=== PATIENT | female | born 1960 | race Hispanic/Latino ===

== ENCOUNTER 2022-01-02 11:31 | Inpatient (IN) | payer OTHER ==
--- OUTSIDE RECORDS SUMMARY | 2022-01-02 11:44 | XMS REPORT | Continuity of Care Document ---
:1960 Author Organization [facility] t Address [address] [place] [address] Care Team Providers Name Role Phone Neret Primary Care Physician PATRICIA Attending Clinician Unavailable José SAUER Attending Clinician Unavailable Tito SAUER Attending Clinician Unavailable Doctor Unassigned, Name Attending Clinician Unavailable Daniel MA Attending Clinician Chano LOMELI, L Attending Clinician Unavailable DANIEL Attending Clinician Unavailable Ayesha Bateman MD Attending Clinician Rizwan SAUER Attending Clinician Lauro SAUER Attending Clinician Benjy SAUER Attending Clinician Irene MARCUS Attending Clinician Unavailable Irene Marcus DO Attending Clinician RHIANNON MARTINEZ Attending Clinician Unavailable Rhiannon Perea Attending Clinician DANIEL Attending Clinician Unavailable Irene BURNETT Attending Clinician Unavailable Irene Burnett MD Attending Clinician America SAUER Attending Clinician Shoaib LOMELI Attending Clinician Unavailable [place] GOULD Attending Clinician Unavailable Janice RAND Attending Clinician Unavailable Janice Rand MD Attending Clinician Thiago SAUER Attending Clinician THIAGO Attending Clinician Unavailable RIZWAN Admitting Clinician Unavailable Benjy SAUER Admitting Clinician Irene BURNETT Admitting Clinician Unavailable Payers Payer Name Policy Type Policy Number Effective Date Expiration Date Mitchell byers CIG[employer] OPEN [id number] 2015 2021 ACCESS/OPEN 00:00:00 00:00:00 ACCESS PLUS NENO NARANJO [id number] 2021 HEALTH PLAN 00:00:00 CIGNA II [id number] 2020 00:00:00 Problems Condition Condition Condition Status Onset Resolution Last Treating Co mments Source Name Details Category Date Date Treatment Clinician Date Morbid Morbid Disease Active [facility] obesity obesity 6-23 [place] with [place] mass index 00 [place] dical of Branch 40.0-49.9 40.0-49.9 Pancytopen Pancytopen Disease Active U nivers ia ia 6-22 ity of 00:00: [address] Obesity Obesity Disease Active Univers (BMI (BMI 6-22 ity of 30-39.9) 30-39.9) 00:00: [address] No known No known Disease Unive rs active active ity of problems problems [facility] Allergies, Adverse Reactions, Alerts Allergy Allergy Status Severity Reaction(s) Onset Inactive Treating Comm ents Source Name Type Date Date Clinician Sulfa Propensi Active Rash Univers (Sulfona ty to 1-01 ity of mide adverse 00:00: [place] Antibiot reaction 00 Medica l ics) s Branch SULFA Drug Active Rash Univers (SULFONA Class 1-01 ity of MIDE 00:00: [place] ANTIBIOT 00 Medical ICS) Branch Sulfa Propensi Active Rash Univers (Sulfona ty to 1-01 ity of mide adverse 00:00: [place] Antibiot reaction 00 Medica l ics) s Branch Codeine Propensi Active [facility] ty to 02-18 Health adverse 00:00: reaction 00 s Sulfa Propensi Active [facility] Antibiot ty to 02-18 Health ics adverse 00:00: reaction 00 s CODEINE DRUG Active Swelling Univers INGREDI 1-30 ity of 00:00: [place] 00 Medical Branch Codeine Propensi Active Swelling Unive rs ty to -30 ity of adverse 00:00: [place] reaction 00 Medical s Branch Social History Social Habit Start Date Stop Date Quantity Comments Source History [facility] Health Alcohol Comment History [facility] Health Alcohol Std Drinks History [facility] Health Alcohol Binge Alcohol intake 2021-12-30 2021-12-30 0 /d [place] [facility] 00:00:00 00:00:00 Tobacco use and 2021-12-06 2021-12-06 Smokeless tobacco Un iversity of exposure 00:00:00 00:00:00 non-user [place] [facility] Exposure to 2021-11-19 2021-11-29 Not sure University SARS-CoV-2 00:00:00 09:17:00 [place] [facility] (event) Branch History SDOH 2021-01-21 2021-01-21 1 [facility] Alcohol Frequency 00:00:00 00:00:00 Sex [birth year] [place] [facility] 00:00:00 00:00:00 Smoking Status Start Date Stop Date Source Never smoked tobacco [facility] Tobacco smoking consumption [facility] Medical unknown Branch Medications Ordered Filled Start Stop Current Ordering Indication Dosage Frequency Signature Comments Components Source Medication Medication Date Date Medication? Clinician (SIG) Name Name Carboxymeth Yes Administer [facility] ylcellulose 7-21 into Health Sodium (EYE 10:25: affected DROPS OP) 09 eye(s). UNABLE TO Yes Med Name: [facility] FIND 7-21 [facility] 10:25: Eye GTTS 09 Carboxymeth Yes Administer [facility] ylcellulose 7-21 into Health Sodium (EYE 10:25: affected DROPS OP) 09 eye(s). UNABLE TO Yes Med Name: [facility] FIND 7-21 [facility] 10:25: Eye GTTS 09 gabapentin Yes 300mg Take 300 UT (Neurontin) 7-21 mg by Health 300 MG 10:22: mouth. capsule 41 gabapentin 2021-0 Yes 300mg Take 300 UT (Neurontin) 7-21 mg by Health 300 MG 10:22: mouth. capsule 41 tolterodine 2021-0 Yes TAKE 1 [facility] [place] (Detrol 7- CAPSULE Health [place]) 4 MG 24 10:15: DAILY hr capsule 23 Sennosides- 2021-0 Yes QD Take by [facility] Docusate - mouth 1 Health Sodium 10:15: (one) time (STOOL 23 each day. SOFTENER/LA XATIVE PO) traMADol 2021-0 Yes 50mg Q.[id number] Take 50 mg UT (Ultram) 50 - [id number] by mouth 3 Health MG tablet 10:15: 3D (three) 23 times a day. valsartan 2021-0 Yes 320mg QD Take 320 UT (Diovan) 7-21 mg by Health 160 MG 10:15: mouth 1 tablet 23 (one) time each day. tiZANidine 2021-0 Yes 4mg Q.5D Take 4 mg UT (Zanaflex) 12-30 by mouth 2 Hea lth 4 MG 10:15: (two) capsule 23 times a day. furosemide 0 Yes 40mg QD Take 40 mg U T (Lasix) 40 12-30 by mouth 1 Hea lth MG tablet 10:15: (one) time 23 each day. Calcium 2021-0 Yes QD Take by UT Carbonate 12-30 mouth 1 Health Antacid 10:15: (one) time (TUMS E-X 23 each day. PO) bimatoprost 0 Yes 1[drp] 1 drop UT (Lumigan) 12-30 every Health 0.01 % 10:15: night. ophthalmic 23 solution tolterodine 2021-0 Yes TAKE 1 [facility] [place] (Detrol - CAPSULE Health LA) 4 MG 24 10:15: DAILY hr capsule 23 Sennosides- 2021-0 Yes QD Take by UT Docusate - mouth 1 Health Sodium 10:15: (one) time (STOOL 23 each day. SOFTENER/LA XATIVE PO) traMADol 2021-0 Yes 50mg Q.[id number] Take 50 mg UT (Ultram) 50 - [id number] by mouth 3 Health MG tablet 10:15: 3D (three) 23 times a day. valsartan 2021-0 Yes 320mg QD Take 320 UT (Diovan) 7-21 mg by Health 160 MG 10:15: mouth 1 tablet 23 (one) time each day. tiZANidine 2021-0 Yes 4mg Q.5D Take 4 mg UT (Zanaflex) 12-30 by mouth 2 Hea lth 4 MG 10:15: (two) capsule 23 times a day. furosemide 2021-0 Yes 40mg QD Take 40 mg U T (Lasix) 40 12-30 by mouth 1 Hea lth MG tablet 10:15: (one) time 23 each day. Calcium 2021-0 Yes QD Take by UT Carbonate 12-30 mouth 1 Health Antacid 10:15: (one) time (TUMS E-X 23 each day. PO) bimatoprost 2021-0 Yes 1[drp] 1 drop UT (Lumigan) 12-30 every Health 0.01 % 10:15: night. ophthalmic 23 solution Cholecalcif 2021-0 Yes UT maya -18 Health (Vitamin 00:00: D3) 1.25 MG 00 (58476 UT) capsule hydrALAZINE 2021-0 Yes UT (Apresoline 18 Health ) 25 MG 00:00: tablet 00 Cholecalcif 2021-0 Yes UT maya -18 Health (Vitamin 00:00: D3) 1.25 MG 00 (12419 UT) capsule hydrALAZINE 2021-0 Yes UT (Apresoline 18 Health ) 25 MG 00:00: tablet 00 glucose 2021-0 Yes [id number] TEST THREE UT blood 7-15 TIMES A Health (OneTouch 00:00: DAY Verio) test 00 strip glucose 2021-0 Yes [id number] TEST THREE UT blood 7-15 TIMES A Health (OneTouch 00:00: DAY Verio) test 00 strip dapaglifloz 2021-0 Yes 10mg Take 10 mg Univers in 12-17 by mouth ity of (FARXIGA) 02:53: daily. [place] 10 mg 01 Medical tablet Branch dulaglutide 2021-0 Yes inject Univ ers (TRULICITY) 12-17 under the ity of 0.75 mg/0.5 02:53: skin [place] mL PnIj 01 weekly. Medical Branch insulin Yes 40U inject 40 Unive rs aspart 7-08 Units ity of (NOVOLOG 02:53: [place] the [place] FLEXPEN 01 skin every Medica l U-100 morning. Branch INSULIN SC) insulin Yes 30U inject 30 Unive rs aspart 7-08 Units ity of U-100 02:53: under the [place] (NOVOLOG 01 skin every Medic al FLEXPEN evening. Branch U-100 INSULIN) 100 unit/mL (3 mL) injection hydralazine Yes Take by Un shayna HCl 7-08 mouth. ity of (HYDRALAZIN 02:53: [place] E ORAL) 01 Medical Branch iocetamic Yes 1{capsu Take 1 Uni vers acid 7-08 le} capsule by ity of (CHOLEBRINE 02:53: mouth [place] ORAL) 01 daily. Medical Branch doxepin 10 Yes 10mg Take 10 mg U nivers mg capsule 708 by mouth ity o f 02:53: every [place] 01 evening as Medical needed for Branch Insomnia. gabapentin Yes 300mg Take 300 Un shay[place] 300 mg 7-08 mg by ity of capsule 02:53: mouth 2 [place] 01 (two) Medical times Branch daily. empaglifloz Yes 1{tbl} Take 1 Un shayna in 7-08 tablet by ity of (JARDIANCE) 02:53: mouth [place] 25 mg Tab 01 daily. Medical Branch dapaglifloz Yes 10mg Take 10 mg Univers in 08 by mouth ity of (FARXIGA) 02:53: daily. [place] 10 mg 01 Medical tablet Branch dulaglutide Yes inject Univ ers (TRULICITY) 7-08 under the ity of 0.75 mg/0.5 02:53: skin [place] mL PnIj 01 weekly. Medical Branch insulin Yes 40U inject 40 Unive rs aspart 7-08 Units ity of (NOVOLOG 02:53: [place] the [place] FLEXPEN 01 skin every Medica l U-100 morning. Branch INSULIN SC) insulin Yes 30U inject 30 Unive rs aspart 7-08 Units ity of U-100 02:53: under the [place] (NOVOLOG 01 skin every Medic al FLEXPEN evening. Branch U-100 INSULIN) 100 unit/mL (3 mL) injection hydralazine Yes Take by Un shayna HCl 7-08 mouth. ity of (HYDRALAZIN 02:53: [place] E ORAL) Medical Branch iocetamic Yes 1{capsu Take 1 Uni vers acid 7-08 le} capsule by ity of (CHOLEBRINE 02:53: mouth [place] ORAL) 01 daily. Medical Branch doxepin 10 Yes 10mg Take 10 mg U nivers mg capsule 7-08 by mouth ity o f 02:53: every [place] 01 evening as Medical needed for Branch Insomnia. gabapentin Yes 300mg Take 300 Un shay[place] 300 mg 7-08 mg by ity of capsule 02:53: mouth 2 [place] 01 (two) Medical times Branch daily. empaglifloz Yes 1{tbl} Take 1 Un shayna in 7-08 tablet by ity of (JARDIANCE) 02:53: mouth [place] 25 mg Tab 01 daily. Medical Branch dapaglifloz Yes 10mg Take 10 mg Univers in 7-08 by mouth ity of (FARXIGA) 02:53: daily. [place] 10 mg 01 Medical tablet Branch dulaglutide Yes inject Univ ers (TRULICITY) 7-08 under the ity of 0.75 mg/0.5 02:53: skin [place] mL PnIj 01 weekly. Medical Branch insulin Yes 40U inject 40 Unive rs aspart 7-08 Units ity of (NOVOLOG 02:53: [place] the [place] FLEXPEN 01 skin every Medica l U-100 morning. Branch INSULIN SC) insulin Yes 30U inject 30 Unive rs aspart 7-08 Units ity of U-100 02:53: under the [place] (NOVOLOG 01 skin every Medic al FLEXPEN evening. Branch U-100 INSULIN) 100 unit/mL (3 mL) injection hydralazine Yes Take by Un shay[place] HCl 7-08 mouth. ity of (HYDRALAZIN 02:53: [place] E ORAL) Medical Branch iocetamic Yes 1{capsu Take 1 Uni vers acid 7-08 le} capsule by ity of (CHOLEBRINE 02:53: mouth [place] ORAL) 01 daily. Medical Branch doxepin 10 Yes 10mg Take 10 mg U nivers mg capsule 7-08 by mouth ity o f 02:53: every [place] 01 evening as Medical needed for Branch Insomnia. gabapentin Yes 300mg Take 300 Un shay[place] 300 mg 7-08 mg by ity of capsule 02:53: mouth 2 [place] 01 (two) Medical times Branch daily. empaglifloz Yes 1{tbl} Take 1 Un shay[place] in 7-08 tablet by ity of (JARDIANCE) 02:53: mouth [place] 25 mg Tab 01 daily. Medical Branch foLIC acid 2021- Yes [id number] 4mg Take 4 Univers 1 mg tablet 12-16- tablets by i ty of 00:00: 04:59 mouth [place] 00 :00 daily for Medical 30 days. Branch foLIC acid 2021- Yes [id number] 4mg Take 4 Univers 1 mg tablet 12-16- tablets by i ty of 00:00: 04:59 mouth [place] 00 :00 daily for Medical 30 days. Branch foLIC acid 2021- Yes [id number] 4mg Take 4 Univers 1 mg tablet 12-16- tablets by i ty of 00:00: 04:59 mouth [place] 00 :00 daily for Medical 30 days. Branch foLIC acid 2021- Yes [id number] 4mg Take 4 Univers 1 mg tablet 12-16- tablets by i ty of 00:00: 04:59 mouth [place] 00 :00 daily for Medical 30 days. Branch foLIC acid 2021- Yes [id number] 4mg Take 4 Univers 1 mg tablet 12-16- tablets by i ty of 00:00: 04:59 mouth [place] 00 :00 daily for Medical 30 days. Branch LEVOTHYROXI Yes None Univer s NE 200 MCG 7-06 Entered ity of ORAL TAB 14:54: [place] 28 Medical Branch CALCITRIOL Yes None Univers 0.5 MCG 7-06 Entered ity of ORAL CAP 14:54: [place] 28 Medical Branch FOLTRIN Yes None Univers ORAL 7-06 Entered ity of 14:54: [place] 28 Medical Branch AMLODIPINE Yes None Univers BESYLATE 7- Entered ity of ORAL 14:54: [place] 28 Medical Branch dapaglifloz Yes 10mg Take 10 mg Univers in 06 by mouth ity of (FARXIGA) 14:54: daily. [place] 10 mg 28 Medical tablet Branch dulaglutide Yes inject Univ ers (TRULICITY) 7-06 under the ity of 0.75 mg/0.5 14:54: skin [place] mL PnIj 28 weekly. Medical Branch insulin Yes 40U inject 40 Unive rs aspart 7-06 Units ity of (NOVOLOG 14:54: [place] the [place] FLEXPEN 28 skin every Medica l U-100 morning. Branch INSULIN SC) insulin Yes 30U inject 30 Unive rs aspart 7-06 Units ity of U-100 14:54: under the [place] (NOVOLOG 28 skin every Medic al FLEXPEN evening. Branch U-100 INSULIN) 100 unit/mL (3 mL) injection hydralazine Yes Take by Un shayna HCl 706 mouth. ity of (HYDRALAZIN 14:54: [place] E ORAL) 28 Medical Branch iocetamic Yes 1{capsu Take 1 Uni vers acid 7 le} capsule by ity of (CHOLEBRINE 14:54: mouth [place] ORAL) 28 daily. Medical Branch doxepin 10 Yes 10mg Take 10 mg U nivers mg capsule 06 by mouth ity o f 14:54: every [place] 28 evening as Medical needed for Branch Insomnia. gabapentin Yes 300mg Take 300 Un shayna 300 mg 7-06 mg by ity of capsule 14:54: mouth 2 [place] 28 (two) Medical times Branch daily. empaglifloz Yes 1{tbl} Take 1 Un shay[place] in 12-15 tablet by ity of (JARDIANCE) 14:54: mouth [place] 25 mg Tab 28 daily. Medical Branch LEVOTHYROXI Yes None Univer s NE 200 MCG 7 Entered ity of ORAL TAB 14:54: [place] 28 Medical Branch CALCITRIOL Yes None Univers 0.5 MCG 7 Entered ity of ORAL CAP 14:54: [place] 28 Medical Branch FOLTRIN Yes None Univers ORAL 7- Entered ity of 14:54: [place] 28 Medical Branch AMLODIPINE Yes None Univers BESYLATE 12-15 Entered ity of ORAL 14:54: [place] 28 Medical Branch dapaglifloz Yes 10mg Take 10 mg Univers in 12-15 by mouth ity of (FARXIGA) 14:54: daily. [place] 10 mg 28 Medical tablet Branch dulaglutide Yes inject Univ ers (TRULICITY) 7 under the ity of 0.75 mg/0.5 14:54: skin [place] mL PnIj 28 weekly. Medical Branch insulin Yes 40U inject 40 Unive rs aspart 7-06 Units ity of (NOVOLOG 14:54: [place] the [place] FLEXPEN 28 skin every Medica l U-100 morning. Branch INSULIN SC) insulin Yes 30U inject 30 Unive rs aspart 7-06 Units ity of U-100 14:54: under the [place] (NOVOLOG 28 skin every Medic al FLEXPEN evening. Branch U-100 INSULIN) 100 unit/mL (3 mL) injection hydralazine Yes Take by Un shayna HCl 7 mouth. ity of (HYDRALAZIN 14:54: [place] E ORAL) 28 Medical Branch iocetamic Yes 1{capsu Take 1 Uni vers acid 12-15 le} capsule by ity of (CHOLEBRINE 14:54: mouth [place] ORAL) 28 daily. Medical Branch doxepin 10 Yes 10mg Take 10 mg U nivers mg capsule 12-15 by mouth ity o f 14:54: every [place] 28 evening as Medical needed for Branch Insomnia. gabapentin Yes 300mg Take 300 Un shayna 300 mg 7- mg by ity of capsule 14:54: mouth 2 [place] 28 (two) Medical times Branch daily. empaglifloz Yes 1{tbl} Take 1 Un shayna in 12-15 tablet by ity of (JARDIANCE) 14:54: mouth [place] 25 mg Tab 28 daily. Medical Branch LEVOTHYROXI Yes None Univer s NE 200 MCG 7 Entered ity of ORAL TAB 14:54: [place] 28 Medical Branch CALCITRIOL Yes None Univers 0.5 MCG 7-06 Entered ity of ORAL CAP 14:54: [address] FOLTRIN Yes None Univers ORAL 7-06 Entered ity of 14:54: [address] AMLODIPINE Yes None Univers BESYLATE 7-06 Entered ity of ORAL 14:54: [address] LEVOTHYROXI Yes None Univer s NE 200 MCG 7-06 Entered ity of ORAL TAB 14:54: [address] CALCITRIOL Yes None Univers 0.5 MCG 7-06 Entered ity of ORAL CAP 14:54: [address] FOLTRIN Yes None Univers ORAL 7-06 Entered ity of 14:54: [address] AMLODIPINE Yes None Univers BESYLATE 7-06 Entered ity of ORAL 14:54: [address] LEVOTHYROXI Yes None Univer s [place] 200 MCG 7-06 Entered ity of ORAL TAB 14:54: [address] CALCITRIOL Yes None Univers 0.5 MCG 7- Entered ity of ORAL CAP 14:54: [address] FOLTRIN Yes None Univers ORAL 7-06 Entered ity of 14:54: [address] AMLODIPINE Yes None Univers BESYLATE - Entered ity of ORAL 14:54: [address] pantoprazol Yes 40mg 40 mg, Univ ers e 12-15 Oral, ity of (PROTONIX) 14:45: DAILY, [place] EC tablet 00 First dose Medi abdon 40 mg on Mon12/15/21 at 0945, Until Discontinu ed, Routine insulin Yes 5U 5 Units, Univer s lispro 12-15 Subcutaneo ity of (human) 13:00: us, TID [place] (HumaLOG 00 MEALS, Medical U-100) First dose Branch injection 5 (after Units last modificati on) on Mon12/15/21 at 0800, Until Discontinu ed, Routine PREDNISONE 2021- No None Univer s 10 MG ORAL 12-15 Entered ity o f TAB 11:40: 00:00 [place] 13 :00 [facility] HYDROCHLORO 2021- No None Unive rs THIAZIDE 25 12-15 Entered ity of MG ORAL TAB 11:40: 00:00 [place] 13 :00 Medical Branch METHOTREXAT 2021- No None Unive rs E SODIUM 12-15 Entered ity of 2.5 MG ORAL 11:40: 00:00 [place] TAB 13 :00 Medical Branch FOLIC ACID 2021- No None Univer s 1 MG ORAL 12-15 Entered ity of TAB 11:40: 00:00 [place] 13 :00 Medical Branch METFORMIN 2021- No None Univers 500 MG ORAL 12-15 Entered ity of TAB 11:40: 00:00 [place] 13 :00 Medical Branch ENALAPRIL 2021- No None Univers MALEATE 20 12-15 Entered ity o f MG ORAL TAB 11:40: 00:00 [place] 13 :00 [facility] Branch HYDROXYCHLO 2021- No None Unive rs ROQUINE 200 12-15 Entered ity of MG ORAL TAB 11:40: 00:00 [place] 13 :00 [facility] Branch losartan-hy 2021- No 1{tbl} Take 1 U nivers drochloroth 12-15 tablet by it y of iazide 11:40: 00:00 mouth [place] 100-12.5 mg 13 :00 daily. Medica l per tablet Branch hydrALAZINE No 25mg Take 25 mg Univers 25 mg 12-15 by mouth 3 ity of tablet 11:40: 00:00 (three) [place] 13 :00 times Medical daily. Branch insulin Yes 12U 12 Units, Unive rs glargine 12-15 Subcutaneo ity o f (LANTUS 01:00: us, BID, [place] U-100) 00 First dose Medical injection (after Branch 12 Units last modificati on) on Mon12/14/21 at 1999, Until Discontinu ed, Routine pantoprazol No 40mg 40 mg, Uni vers e 12-15 Oral, BID, ity of (PROTONIX) 01:00: 14:43 First dose [place] 2 mg/mL 00 :00 on Mon Medical oral 12/14/21 at Branch suspension 2000, 40 mg Until Discontinu ed, Routine Levemir Yes [facility] FlexTouch 7-06 Health 100 UNIT/ML 00:00: injection 00 Levemir 0 Yes [facility] FlexTouch 7-06 Health 100 UNIT/ML 00:00: injection 00 metoprolol 2021- Yes 12.5mg Take 12.5 UT tartrate 12-15 08-06 mg by Health (Lopressor) 00:00: 04:59 mouth. 25 MG 00 :00 tablet pantoprazol 2021- Yes 1{tbl} QD Take 1 U T e 12-15- tablet by Health (ProtoNix) 00:00: 04:59 mouth 1 40 [place] EC 00 :00 (one) time tablet each day. metoprolol 2021- Yes 12.5mg Take 12.5 UT tartrate 12-15 08-06 mg by Health (Lopressor) 00:00: 04:59 mouth. 25 MG 00 :00 tablet pantoprazol 2021- Yes 1{tbl} QD Take 1 U T e 12-15- tablet by Health (ProtoNix) 00:00: 04:59 mouth 1 40 [place] EC 00 :00 (one) time tablet each day. pantoprazol 2021- Yes [id number] 40mg Take 1 Univers e 40 mg EC 12-15- tablet by ity of tablet 00:00: 04:59 mouth [place] 00 :00 daily for Medical 30 days. [place] metoprolol 2021- Yes [id number] 12.5mg Take 0.5 Univers tartrate 25 12-15- tablets by i ty of mg tablet 00:00: 04:59 mouth 2 [place] 00 :00 (two) Medical times [place] daily for 30 days. pantoprazol 2021- Yes [id number] 40mg Take 1 Univers e 40 mg EC 12-15- tablet by ity of tablet 00:00: 04:59 mouth [place] 00 :00 daily for Medical 30 days. [place] metoprolol 2021- Yes [id number] 12.5mg Take 0.5 Univers tartrate 25 12-15-06 tablets by i ty of mg tablet 00:00: 04:59 mouth 2 [place] 00 :00 (two) Medical times Branch daily for 30 days. Insulin 2021- Yes [id number] 12U inject 12 Univers Detemir 12-15 08-06 Units ity of (LEVEMIR 00:00: 04:59 under the [place] FLEXTOUCH 00 :00 skin 2 Medical U-100 (two) Branch INSULN) 100 times unit/mL (3 daily for mL) 30 days. injection pantoprazol 2021- Yes [id number] 40mg Take 1 Univers e 40 mg EC 12-15- tablet by ity of tablet 00:00: 04:59 mouth [place] 00 :00 daily for Medical 30 days. Branch metoprolol 2021- Yes [id number] 12.5mg Take 0.5 Univers tartrate 25 12-15- tablets by i ty of mg tablet 00:00: 04:59 mouth 2 [place] 00 :00 (two) Medical times Branch daily for 30 days. Insulin 2021- Yes [id number] 12U inject 12 Univers Detemir 12-15 08-06 Units ity of (LEVEMIR 00:00: 04:59 under the [place] FLEXTOUCH 00 :00 skin 2 Medical U-100 (two) Branch INSULN) 100 times unit/mL (3 daily for mL) 30 days. injection pantoprazol 2021- Yes [id number] 40mg Take 1 Univers e 40 mg EC 12-15- tablet by ity of tablet 00:00: 04:59 mouth [place] 00 :00 daily for Medical 30 days. Branch metoprolol 2021- Yes [id number] 12.5mg Take 0.5 Univers tartrate 25 12-15- tablets by i ty of mg tablet 00:00: 04:59 mouth 2 [place] 00 :00 (two) Medical times Branch daily for 30 days. Insulin 2021- Yes [id number] 12U inject 12 Univers Detemir 12-15 08-06 Units ity of (LEVEMIR 00:00: 04:59 under the [place] FLEXTOUCH 00 :00 skin 2 Medical U-100 (two) Branch INSULN) 100 times unit/mL (3 daily for mL) 30 days. injection pantoprazol 2021- Yes [id number] 40mg Take 1 Univers e 40 mg EC 12-15 tablet by ity of tablet 00:00: 04:59 mouth [place] 00 :00 daily for Medical 30 days. Branch metoprolol 2021- Yes [id number] 12.5mg Take 0.5 Univers tartrate 25 12-15 tablets by i ty of mg tablet 00:00: 04:59 mouth 2 [place] 00 :00 (two) Medical times Branch daily for 30 days. Insulin 2021- Yes [id number] 12U inject 12 Univers Detemir 12-15 Units ity of (LEVEMIR 00:00: 04:59 under the [place] FLEXTOUCH 00 :00 skin 2 Medical U-100 (two) Branch INSULN) 100 times unit/mL (3 daily for mL) 30 days. injection lidocaine 2021- Yes [id number] 10mL Take 10 mL Univers 2% viscous 12-15 by mouth ity of 2 % 00:00: 04:59 every 6 [place] solution 00 :00 (six) Medical hours as Branch needed for Oral mucosal pain for up to 7 days. maalox:diph 2021- Yes [id number] 15mL [place] and Univers enhydrAMINE 12-15 spit out ity of :lidocaine 00:00: 04:59 15 mL 4 [place] 2 % viscous 00 :00 (four) Medica l 1:1:1 times Branch daily for 7 days. lidocaine 2021- Yes [id number] 10mL Take 10 mL Univers 2% viscous 12-15 by mouth ity of 2 % 00:00: 04:59 every 6 [place] solution 00 :00 (six) Medical hours as Branch needed for Oral mucosal pain for up to 7 days. maalox:diph 2021- Yes [id number] 15mL Swish and Univers enhydrAMINE 12-15 spit out ity of :lidocaine 00:00: 04:59 15 mL 4 [place] as 2 % viscous 00 :00 (four) Medica l 1:1:1 times Branch daily for 7 days. lidocaine 2021- Yes [id number] 10mL Take 10 mL Univers 2% viscous 12-15 by mouth ity of 2 % 00:00: 04:59 every 6 [place] solution 00 :00 (six) Medical hours as Branch needed for Oral mucosal pain for up to 7 days. maalox:diph 2021- Yes [id number] 15mL Swish and Univers enhydrAMINE 12-15 spit out ity of :lidocaine 00:00: 04:59 15 mL 4 [place] as 2 % viscous 00 :00 (four) Medica l 1:1:1 times Branch daily for 7 days. calcium 2021- No 2g 2 g, IV Univer s gluconate 2 12-14 Infusion, it y of g in NaCl 19:45: 22:36 Administer [place] 100 mL 00 :00 over 2 Medical (ISO-OSM) Hours, Branch RTU IV ONCE, 1 infusion 2 dose, On g Mon12/14/21 at 1445, Routine furosemide No 40mg 40 mg, [place] [facility] ers (LASIX) 12-14 Slow IV ity of injection 04:15: 03:49 Push, [place] 40 mg 00 :00 ONCE, 1 Medical dose, On Branch Mon12/13/21 at 2315, Routine insulin No 10U 10 Units, [facility] ers glargine 12-14 Subcutaneo ity of (LANTUS 01:00: 22:45 us, BID, [place] U-100) 00 :25 First dose Medical injection (after Branch 10 Units last modificati on) on Mon12/13/21 at 2000, Until Discontinu ed, Routine insulin No 4U 4 Units, [facility] rs lispro 12-13 Subcutaneo ity of (human) 22:00: 22:45 us, TID [place] (HumaLOG 00 :25 MEALS, Medical U-100) First dose Branch injection 4 (after Units last modificati on) on Mon12/13/21 at 1700, Until Discontinu ed, Routine insulin 2021- No 15U 15 Units, [facility] ers glargine 12-13 Subcutaneo ity of (LANTUS 14:00: 16:27 us, DAILY, [place] as U-100) 00 :22 First dose Medical injection (after Branch 15 Units last modificati on) on Mon12/13/21 at 0900, Until Discontinu ed, Routine calcium 2g 2 g, IV Univer s gluconate 2 12-13 Infusion, it y of g in NaCl 01:00: 05:37 Q4H, 2 [place] 100 mL 00 :00 doses, Medical (ISO-OSM) First dose Bran ch RTU IV on Sun infusion 12/12/21 at g 2000, Last dose on Mon12/13/21 at 0000, Routine insulin No 18U 18 Units, Univ ers glargine 12-12 Subcutaneo ity of (LANTUS 14:00: 03:29 us, DAILY, [place] U-100) 00 :02 First dose Medical injection (after Branch 18 Units last modificati on) on [place] 12/12/21 at 0900, Until Discontinu ed, Routine insulin No 15U 15 Units, Univ ers glargine 12-12 Subcutaneo ity of (LANTUS 01:00: 16:27 us, Q24H, [place] U-100) 00 :22 First dose Medical injection (after Branch 15 Units last modificati on) on Mon12/11/21 at 2000, Until Discontinu ed, Routine morpHINE (4 Yes 4mg 4 mg, Slow Univers mg/mL) 12-11 IV Push, ity of injection 4 04:27: Q4HPRN, [place] mg 01 Starting Medical on Mon12/10/21 at 2327, Until Discontinu ed, Routine, Pain (scale 7-10) insulin 2021- No 18U 18 Units, Univ ers glargine 12-11 Subcutaneo ity of (LANTUS 01:00: 17:06 us, BID, [place] U-100) 00 :28 First dose Medical injection (after Branch 18 Units last modificati on) on Mon12/10/21 at 2000, Until Discontinu ed, Routine vancomycin No 1000mg 1,000 mg, Univers (VANCOCIN) 12-11 IV ity of 1,000 mg in 00:30: 02:54 Piggyback, [place] NaCl 0.9% 00 :00 ONCE, 1 Medical (NS) 250 mL dose, On Bran ch VIAL-MATE Mon12/10/21 IV at 1930, piggyback Administer over 60 Minutes, 250 mL
Reas on for Anti-Infec tive: Empiric Therapy for Suspected Infection< br>Empiric Therapy Site: Blood
D uration of therapy: 7 days Sliding Yes Subcutaneo Univ ers Scale 12-10 us, TID ity of Insulin - 22:00: MEALS+HS, [place] Lispro 00 First dose Medical (HumaLOG) + (after Branch Fsbg last Testing modificati on) on Mon12/10/21 at 1700, Until Discontinu ed, Routine insulin 2021- No 8U 8 Units, [place] [facility] lispro 12-10 Subcutaneo ity of (human) 22:00: 16:27 us, TID [place] (HumaLOG 00 :22 MEALS, Medical U-100) First dose Branch injection 8 (after Units last modificati on) on Mon12/10/21 at 1700, Until Discontinu ed, Routine sulfur 2021- No [id number] 5mL 5 mL, [facility] rs hexafluorid 12-10 Intravenou i ty of e microsphr 17:00: 17:00 s, ONCE, 1 [place] (LUMASON) 00 :00 dose, On Medica l injection 5 Mon12/10/21 Br anch mL at 1200, Routine
hull line crew member approving Restricted medication : MARTHA INGRAM insulin 2021- No 20U 20 Units, [place] [facility] ers glargine 12-10 Subcutaneo ity of (LANTUS 14:00: 19:29 us, DAILY, [place] U-100) 00 :04 First dose Medical injection (after Branch 20 Units last modificati on) on Mon12/10/21 at 0900, Until Discontinu ed, Routine D5W 0.9% 2021- No 1000mL at 60 [facility] rs NaCl (NS) 12-10 07-03 mL/hr, ity of IV infusion 09:30: 13:34 1,000 mL, [place] 1,000 mL 00 :03 IV Medical Infusion, Branch CONTINUOUS , Starting on Mon12/10/21 at 0430, Until Mon12/12/21 at 0834, Routine digoxin No 250ug 250 mcg, Univ ers (LANOXIN) 12-10 Intravenou ity of injection 08:26: 09:03 s, ONCE, 1 [place] 250 mcg 00 :00 dose, On Medical Mon12/10/21 Branch at 0330, Routine metoprolol Yes 12.5mg 12.5 mg, U nivers tartrate 12-10 Oral, BID, ity o f (LOPRESSOR) 02:15: First dose [place] tablet 12.5 00 (after Medica l mg last Branch modificati on) on [place] 12/09/21 at 2115, Until Discontinu ed, Routine acetaminoph No 1000mg 1,000 mg, Univers en ADULT 12-09 IV ity of (OFIRMEV) 23:00: 23:42 Infusion, [place] injection 00 :00 at 400 Medical 1,000 mg mL/hr Branch Administer over 15 Minutes, ONCE, 1 dose, On [place] 12/09/21 at 1800, Routine
Indicatio n: Non-periop erative Patient
Approved by: Per Policy (NPO Status) vancomycin No 1000mg 1,000 mg, Univers (VANCOCIN) 12-09 IV ity of 1,000 mg in 21:15: [facility] [place] NaCl 0.9% 00 :47 Q24H ABX, Medic al (NS) 250 mL First dose Br anch VIAL-MATE on Ana IV 12/09/21 at piggyback 1615, Until Discontinu ed, Administer over 60 Minutes, 250 mL
Reas on for Anti-Infec tive: Empiric Therapy for Suspected Infection& lt;br>Empi jack Therapy Site: Blood
D uration of therapy: 7 days digoxin No 500ug 500 mcg, Univ ers (LANOXIN) 12-09 Intravenou ity of injection 20:30: 19:56 s, ONCE, 1 [place] 500 mcg 00 :00 dose, On Medical [place] Branch 12/09/21 at 1530, Routine insulin No 5U 5 Units, Unive rs glargine 12-09 Subcutaneo ity of (LANTUS 15:07: 16:31 us, ONCE, [place] U-100) 00 :00 1 dose, On Medical injection 5 [place] Branch Units 12/09/21 at 1015, ALEXYS calcium No 1000mg 1,000 mg, Un shayna chloride 12-09 IV ity of 100 mg/mL 11:30: 12:04 Piggyback, [place] (10 %) 00 :00 ONCE, 1 Medical 1,000 mg in dose, On Bran NaCl 0.9% [place] (NS) 150 mL 12/09/21 at piggyback 0630, Administer over 60 Minutes, 150 mL traMADoL No 50mg 50 mg, Univer s (ULTRAM) 12-09 Oral, ity of tablet 50 07:45: 08:47 ONCE, 1 [place] mg 00 :00 dose, On Medical [place] Branch 12/09/21 at 0245, Routine insulin No 9U 9 Units, [place] [facility] lispro 12-08 Subcutaneo ity of (human) 22:00: 19:29 us, TID [place] (HumaLOG 00 :04 MEALS, Medical U-100) First dose Branch injection 9 (after Units last modificati on) on Mon12/08/21 at 1700, Until Discontinu ed, Routine meropenem No 1000mg 1,000 mg, Univers (MERREM) 12-08 07 IV ity of 1,000 mg in 21:00: 13:42 [place], [place] NaCl 0.9% 00 :20 Q12H ABX, Medic al (NS) 50 mL First dose [facility] MINI-BAG on Mon12/08/21 at 1600, Until Discontinu ed, Administer over 3 Hours, 50 mL
Rest ricted use approved by: CICU
Reason for Anti-Infec tive: Empiric Therapy for Suspected Infection< br>Empiric Therapy Site: Blood
D uration of therapy: 72 hours insulin 2021- No 5U 5 Units, Unive rs glargine 12-08 Subcutaneo ity of (LANTUS 18:04: 19:09 us, ONCE, [place] U-100) 00 :00 1 dose, On Medical injection 5 Wed Branch Units 12/08/21 at 1315, Routine diphenhydrA 2021- No 25mg 25 mg, Uni vers MINE 12-08 Oral, ity of (BENADRYL) 18:00: 18:22 ONCE, 1 [place] tablet 25 00 :00 dose, On Medica l mg Wed Branch 12/08/21 at 1300, Routine insulin 2021- No 35U 35 Units, Univ ers glargine 12-08 Subcutaneo ity of (LANTUS 14:00: 15:08 us, DAILY, [place] U-100) 00 :20 First dose Medical injection on Wed Branch 35 Units 12/08/21 at 0900, Until Discontinu ed, Routine hydrocortis 2021- No 100mg 100 mg, U nivers one sod 12-08 Intravenou ity o f succ 07:32: 07:44 s, ONCE, 1 [place] (CORTEF) 00 :00 dose, On Medical injection Wed Branch 100 mg 12/08/21 at 0245, 2 mL acetaminoph 2021- No 1000mg 1,000 mg, Univers en 12-08 Oral, ONCE ity of (TYLENOL) 07:30: 06:37 NOW, 1 [place] tablet 00 :00 dose, On Medical 1,000 mg Wed Branch 12/08/21 at 0230, Routine bacitracin Yes Topical Univ ers 500 unit/g 12-08 (Apply To ity of ointment 30 01:00: Affected [place] g tube 00 Areas), Medical BID, First Branch dose on e 12/07/21 at 2000, Until Discontinu ed, Routine vancomycin 2021- No 1000mg 1,000 mg, Univers (VANCOCIN) 12-07 IV ity of 1,000 mg in 20:30: 22:54 [place], [place] NaCl 0.9% 00 :00 ONCE, 1 Medical (NS) 250 mL dose, On Bran ch VIAL-MATE Tue IV 12/07/21 at piggyback 1530, Administer over 60 Minutes, 250 mL
Reas on for Anti-Infec tive: Empiric Therapy for Suspected Infection< br>Empiric Therapy Site: Blood
D uration of therapy: 7 days insulin 2021- No 4U 4 Units, Unive rs lispro 12-07 Subcutaneo ity of (human) 17:00: 18:05 us, TID [place] (HumaLOG 00 :09 MEALS, Medical U-100) First dose Branch injection 4 (after Units last modificati on) on Mon12/07/21 at 1200, Until Discontinu ed, Routine KCL 2021- No 40meq 40 mEq, Univers (KLOR-CON 12-07 Oral, ity of M20) tablet 17:00: 16:13 ONCE, 1 [place] 40 mEq 00 :00 dose, On Medical Tue Branch 12/07/21 at 1200, Routine Sliding No Subcutaneo Uni vers Scale 12-07 07-01 us, Q3H, ity of Insulin - 16:00: 19:29 First dose [place] Lispro 00 :04 (after Medical (HumaLOG) + last Branch Fsbg modificati Testing on) on Mon12/07/21 at 1100, Until Discontinu ed, Routine insulin 2021- No 15U 15 Units, Univ ers glargine 12-07 Subcutaneo ity of (LANTUS 14:00: 12:36 us, ONCE, [place] U-100) 00 :00 1 dose, On Medical injection Tue Branch 15 Units 12/07/21 at 0900, Routine insulin 2021- No 2U 2 Units, Unive rs lispro 12-07 Subcutaneo ity of (human) 13:00: 15:18 us, TID [place] (HumaLOG 00 :44 MEALS, Medical U-100) First dose Branch injection 2 (after Units last modificati on) on 12/07/21 at 0800, Until Discontinu ed, Routine KCL No 20meq 20 mEq, Univers (KLOR-CON 12-07 Oral, ity of M20) tablet 07:30: 06:40 ONCE, 1 [place] 20 mEq 00 :00 dose, On Medical [facility] 12/07/21 at 0230, Routine calcium 2021- No 2g 2 g, IV Univer s gluconate 2 12-07 Infusion, it y of g in NaCl 06:30: 08:50 ONCE, 1 [place] 100 mL 00 :00 dose, On Medical (ISO-OSM) [facility] RTU IV 12/07/21 at infusion 2 0130, g Routine acetaminoph No 650mg 650 mg, U nivers en 12-07 Oral, ity of (TYLENOL) 05:30: 06:38 ONCE, 1 [place] tablet 650 00 :00 dose, On Medic al mg [facility] 12/07/21 at 0030, Routine traMADoL Yes 50mg 50 mg, Univers (ULTRAM) 12-07 Oral, ity of tablet 50 02:58: Q6HPRN, [place] mg 00 Starting Medical on [facility] 12/06/21 at 2158, Until Discontinu ed, Routine, Pain (scale 4-6) calcium 2021- No 1g 1 g, IV Univer s gluconate 1 12-07 Infusion, it y of g in NaCl 00:30: 01:37 Administer [place] 50 mL 00 :00 over 60 Medical (ISO-OSM) Minutes, Branch RTU IV ONCE, 1 infusion 1 dose, On g [facility] 12/06/21 at 1930, Routine insulin 2021- No 15U 15 Units, Univ ers glargine 12-06 Subcutaneo ity of (LANTUS 23:26: 23:41 us, ONCE, [place] U-100) 00 :00 1 dose, On Medical injection [facility] 15 Units 12/06/21 at 1830, ALEXYS vancomycin 2021- No 1000mg 1,000 mg, Univers (VANCOCIN) 12-06 IV ity of 1,000 mg in 22:30: 00:02 [place], [place] NaCl 0.9% 00 :00 ONCE, 1 Medical (NS) 250 mL dose, On Bran ch VIAL-MATE [facility] IV 12/06/21 at piggyback 1730, Administer over 60 Minutes, 250 mL
Reas on for Anti-Infec tive: Empiric Therapy for Suspected Infection< br>Empiric Therapy Site: Blood
D uration of therapy: 7 days calcium No 1g 1 g, IV Univer s gluconate 1 12-06 Infusion, it y of g in NaCl 16:45: 16:59 Administer [place] 50 mL 00 :00 over 60 Medical (ISO-OSM) Minutes, Branch RTU IV ONCE, 1 infusion 1 dose, On g Mon12/06/21 at 1145, Routine potassium 2021- No 20meq 20 mEq, IV Univers chloride 20 12-06 Piggyback, i ty of mEq/100 mL 15:45: 21:09 Q2H ES, 2 [place] (KCL) 20 00 :00 doses, Medical mEq/100 mL First dose [facility] RTU IVPB 20 on Mon mEq 12/06/21 at 1045, Last dose on Mon12/06/21 at 1245, 100 mL pantoprazol No 40mg 40 mg, Uni vers e 12-06 07-05 Slow IV ity of (PROTONIX) 13:00: 14:59 Push, [place] injection 00 :57 Q12H, Medical 40 mg First dose Branch on Mon12/06/21 at 0800, Until Discontinu ed calcium No 2g 2 g, IV Univer s gluconate 2 12-06 Infusion, it y of g in NaCl 09:00: 08:39 ONCE, 1 [place] 100 mL 00 :00 dose, On Medical (ISO-OSM) [facility] Branch RTU IV 12/06/21 at infusion 2 0400, g Routine ceFEPIme 2021- No 1000mg 1,000 mg, U nivers (MAXIPIME) 12-06 IV ity of 1,000 mg in 06:30: 20:34 [place], [place] NaCl 0.9% 00 :12 Q12H ABX, Medic al (NS) 50 mL First dose Bra nch MINI-BAG on 12/06/21 at 0130, Until Discontinu ed, Administer over 4 Hours, 50 mL
Reas on for Anti-Infec tive: Empiric Therapy for Suspected Infection< br>Empi jack Therapy Site: Blood
D uration of therapy: 7 days hydrocortis 2021- No 100mg 100 mg, U nivers one sod 12-06 Intravenou ity o f succ 03:06: 03:28 s, ONCE, 1 [place] (CORTEF) 00 :00 dose, On Medical injection Sun Branch 100 mg 12/05/21 at 2215, 2 mL maalox:diph Yes 15mL 15 mL, Univ ers enhydrAMINE 12-06 Oral ity of :lidocaine 01:15: ([place] 2 % viscous 00 Spit Out), Me dical 1:1:1 QID, First Branch (FIRST-MOUT dose HWASH BLM) (after oral last suspension modificati 15 mL on) on [place] 12/05/21 at 2015, Until Discontinu ed, Routine acetaminoph 2021- No 975mg 975 mg, U nivers en 12-06 Oral, ONCE ity of (TYLENOL) 00:48: 01:21 NOW, 1 [place] tablet 975 00 :00 dose, On Medic al mg [facility] Branch 12/05/21 at 2000, Routine vancomycin 2021- No 1250mg 1,250 mg, Univers 1250 mg in 12-05 IV ity of NS 250 mL 19:45: 17:54 Piggyback, [place] RTU IV 00 :52 Q24H, Medical Piggyback First dose Bran ch 1,250 mg on [place] 12/05/21 at 1445, Until Discontinu ed, Administer over 90 Minutes, 250 mL
Reas on for Anti-Infec tive: Empiric Therapy for Suspected Infection< br>Empi jack Therapy Site: Blood
D uration of therapy: 7 days ceFEPIme 2021- No 1000mg 1,000 mg, U nivers (MAXIPIME) 12-05 IV ity of 1,000 mg in 19:30: 20:59 Piggyback, [place] NaCl 0.9% 00 :00 ONCE, 1 Medical (NS) 50 mL dose, On Branc h MINI-BAG [place] 12/05/21 at 1430, Administer over 30 Minutes, 50 mL
Reas on for Anti-Infec tive: Empiric Therapy for Suspected Infection< br>Empiric Therapy Site: Blood
D uration of therapy: 7 days insulin 2021- No 4U 4 Units, Unive rs lispro 12-05 Subcutaneo ity of (human) 14:15: 23:28 us, TID [place] (HumaLOG 00 :50 MEALS, Medical U-100) First dose Branch injection 4 (after Units last modificati on) on [place] 12/05/21 at 0915, Until Discontinu ed, Routine lisinopriL No 10mg 10 mg, Univ ers (PRINIVIL,Z 12-05 Oral, ity of ESTRIL) 14:00: 02:10 DAILY, [place] tablet 10 00 :28 First dose Medi abdon mg on Sun Branch 12/05/21 at 0900, Until Discontinu ed, Routine Sliding Subcutaneo Uni vers Scale 12-04 , TID ity of Insulin - 17:00: 14:07 MEALS+HS, [place] Lispro 00 :27 First dose Medical (HumaLOG) + (after Branch Fsbg last Testing modificati on) on 12/04/21 at 1200, Until Discontinu ed, Routine filgrastim- 2021- No 480ug 480 mcg, Univers sndz 12-04 Subcutaneo ity of (ZARXIO) 14:00: 15:39 us, DAILY, [place] 480 mcg/0.8 00 :00 3 doses, Medi abdon mL First dose Branch injection on Sat syringe 480 12/04/21 at mcg 0900, Last dose on 12/06/21 at 0900, Routine
hull line crew member approving Restricted medication : NORM BECERRA Sliding Subcutaneo Uni vers Scale 12-03 us, Q4H, ity of Insulin - 01:00: 15:03 First dose [place] Lispro 00 :01 on Ana Medical (HumaLOG) + 12/02/21 at Br anch Fsbg 1999, Testing Until Discontinu ed, Routine cefTRIAXone 2021- No 1000mg 1,000 mg, Univers (ROCEPHIN) 12-02 IV ity of 1,000 mg in 20:00: 18:[facility] [place] NaCl 0.9% 00 :20 Q24H ABX, Medic al (NS) 50 mL First dose [facility] MINI-BAG on Ana 12/02/21 at 1500, Until Discontinu ed, Administer over 30 Minutes, 50 mL
Reas on for Anti-Infec tive: Empiric Therapy for Suspected Infection< br>Empiric Therapy Site: Other
O ther site: neutropeni a
Durat ion of therapy: 72 hours insulin 2021- No .25U/kg 8 Units Uni vers lispro 12-02 /d (rounded ity of (human) 17:00: 14:05 from 8.375 [place] (HumaLOG 00 :34 Units = Medical U-100) 0.25 Branch injection 8 Units/kg/d Units ay ?100.5 kg), Subcutaneo us, TID MEALS, First dose on [place] 12/02/21 at 1200, Until Discontinu ed, Routine maalox:diph 2021- No 15mL 15 mL, Uni vers enhydrAMINE 12-02 Oral ity of :lidocaine 16:30: 01:09 ([facility] And [place] 2 % viscous 00 :30 Spit Out), Me dical 1:1:1 Q6HPRN, Branch (FIRST-MOUT Starting HWASH BLM) on Ana oral 12/02/21 at suspension 1130, 15 mL Until 12/05/21 at 2009, Routine, Oral mucositis glucagon Yes 1mg 1 mg, Univers (GLUCAGEN 12-02 Intramuscu ity of DIAGNOSTIC 16:22: lar, PRN, [place] KIT) 19 Starting Medical injection 1 on [place] Branch mg 12/02/21 at 1122, Until Discontinu ed, ALEXYS, Blood Glucose < or = 70 mg/dL and patient is unable to swallow or has mental changes. foLIC acid Yes 4mg 4 mg, Univer s (FOLATE) 12-02 Oral, ity of tablet 4 mg 14:00: DAILY, [place] 00 First dose Medical (after Branch last modificati on) on Ana 12/02/21 at 0900, Until Discontinu ed, Routine levothyroxi Yes 150ug 150 mcg, U nivers ne 12-02 Oral, ity of (SYNTHROID) 11:00: QAM-0600, [place] tablet 150 00 First dose Med ical mcg (after Branch last modificati on) on [place] 12/02/21 at 0600, Until Discontinu ed, Routine KCL 2021- No 40meq 40 mEq, Univers (KLOR-CON 12-02 Oral, ity of M20) tablet 02:15: 01:22 ONCE, 1 [place] 40 mEq 00 :00 dose, On Medical Mon [place] 12/01/21 at 2115, Routine maalox:diph 2021- No 15mL 15 mL, Uni vers enhydrAMINE 12-01 Oral ity of :lidocaine 23:37: 16:21 ([place] And [place] 2 % viscous 32 :38 Spit Out), Me dical 1:1:1 BIDPRN, Branch (FIRST-MOUT Starting HWASH BLM) on Mon oral 12/01/21 at suspension 1837, 15 mL Until [place] 12/02/21 at 1121, Routine, Oral mucositis leucovorin 2021- No 15mg 15 mg, Univ ers tablet 15 12-01 Oral, Q6H, ity of mg 23:00: 22:59 12 doses, [place] 00 :00 First dose Medical on Mon Branch 12/01/21 at 1800, Last dose on [facility] 12/04/21 at 1200, Routine lidocaine Yes 10mL 10 mL, Univer s 2% viscous 12-01 Oral, ity of (LIDOCAINE 20:48: Q6HPRN, [place] VISCOUS) 2 37 Starting Medic al % solution on Mon Branch 10 mL 12/01/21 at 1548, Until Discontinu ed, Routine, Oral mucosal pain NaCl 0.9% 2021- No 1000mL at 250 Uni vers (NS) IV 12-01- mL/hr, ity of infusion 19:45: 18:41 1,000 mL, [place] 1,000 mL 00 :41 IV Medical Infusion, Branch CONTINUOUS , Starting on Mon12/01/21 at 1445, Until [place] 12/02/21 at 1341, ALEXYS D5W 0.9% 2021- No 1000mL at 200 Univ ers NaCl (NS) 12-01 mL/hr, ity of IV infusion 19:40: 18:41 1,000 mL, [place] 1,000 mL 48 :51 IV Medical Infusion, Branch PRN - SEE INSTRUCTIO NS, Starting on Mon12/01/21 at 1440, Until Ana 12/02/21 at 1341, ALEXYS NaCl 0.9% 2021- No 1000mL at 999 Uni vers (NS) bolus 12-01 mL/hr, ity of infusion 19:39: 20:28 1,000 mL, [place] 1,000 mL 00 :00 IV Medical Piggyback, Branch ONCE, 1 dose, On Mon12/01/21 at 1445, STAT insulin 2021- No 10U 10 Units, Univ ers lispro 12-01 Subcutaneo ity of (human) 17:00: 00:09 us, TID [place] (HumaLOG 00 :36 MEALS, Medical U-100) First dose Branch injection on Mon 10 Units 12/01/21 at 1200, Until Discontinu ed, Routine insulin 2021- No 35U 35 Units, Univ ers glargine 12-01 Subcutaneo ity of (LANTUS 16:30: 00:09 us, Q24H, [place] U-100) 00 :36 First dose Medical injection on Mon Branch 35 Units 12/01/21 at 1130, Until Discontinu ed, Routine NaCl 0.9% 2021- No 1000mL at 100 Uni vers (NS) IV 12-01 mL/hr, IV ity of infusion 16:15: 18:41 Infusion, [place] 1,000 mL 00 :41 CONTINUOUS Medic al , Starting Branch on Mon12/01/21 at 1115, Until [place] 12/02/21 at 1341, Routine insulin 2021- No 10U 10 Units, Univ ers regular 12-01 Subcutaneo ity o f human 16:15: 15:14 , ONCE, [place] (HUMULIN R) 00 :00 1 dose, On Or dical injection Wed Branch 10 Units 12/01/21 at 1115, Routine NaCl 0.9% 2021- No 1000mL at 999 Uni vers (NS) bolus 12-01 mL/hr, ity of infusion 16:15: 15:25 1,000 mL, [place] 1,000 mL 00 :00 IV Medical Piggyback, Branch ONCE, 1 dose, On Mon12/01/21 at 1115, STAT levothyroxi 2021- No 200ug 200 mcg, Univers ne 12-01 Oral, ity of (SYNTHROID) 15:00: 23:14 QA-0600, [place] tablet 200 00 :47 First dose Med ical mcg (after Branch last modificati on) on Mon12/01/21 at 1000, Until Discontinu ed, Routine foLIC acid 2021- No 1mg 1 mg, Unive rs (FOLATE) 12-01 Oral, ity of tablet 1 mg 14:00: 18:20 DAILY, [place] 00 :28 First dose Medical on [facility] Branch 12/01/21 at 0900, Until Discontinu ed, Routine Sliding 2021- Subcutaneo Uni vers Scale 12-01 , TID ity of Insulin - 13:30: 00:10 MEALS+HS, [place] Lispro 00 :45 First dose Medical (HumaLOG) + (after Branch Fsbg last Testing modificati on) on Mon12/01/21 at 0830, Until Discontinu ed, Routine ondansetron Yes 4mg 4 mg, Slow Univers (ZOFRAN 12-01 IV Push, ity of (PF)) 10:14: Q6HPRN, [place] injection 4 46 Starting Medi abdon mg on [facility] Branch 12/01/21 at 0514, Until Discontinu ed, Routine, Nausea and Vomiting (N/V) acetaminoph Yes 650mg 650 mg, Un shayna en 12-01 Oral, ity of (TYLENOL) 10:14: Q6HPRN, [place] tablet 650 36 Starting Medic al mg on Mon Branch 12/01/21 at 0514, Until Discontinu ed, Routine, Pain (scale 1-3) naproxen 2021-0 Yes [facility] (Naprosyn) 11-27 Health 500 MG 00:00: tablet 00 naproxen 0 Yes [facility] (Naprosyn) 11-27 Health 500 MG 00:00: tablet 00 doxepin 2021-0 Yes [facility] (SINEquan) 11-16 Health 10 MG 00:00: capsule 00 doxepin 0 Yes [place] (SINEquan) 11-16 Health 10 MG 00:00: capsule 00 naproxen 2021- No 500mg 500 mg, Univ ers (NAPROSYN) 11-10 Oral, ity of tablet 500 08:00: 07:02 ONCE, 1 [place] mg 00 :00 dose, On Mon11/10/21 Branch at 0300, Routine amoxicillin 2021- No 500mg 500 mg, U nivers (TRIMOX) 11-10 Oral, ity of capsule 500 08:00: 07:02 ONCE, 1 [place] mg 00 :00 dose, On Mon11/10/21 Branch at 0300, ALEXYS
Re ason for Anti-Infec tive: Documented Infection< br>Documen allison Infection Site: HEENT
D uration of Therapy: 10 days naproxen 2021-0 Yes [id number] 500mg Take 1 Un shayna (NAPROSYN) 11-10 tablet by ity of 500 mg 00:00: mouth 2 [place] tablet 00 (two) Medical times Branch daily with meals. naproxen 2021-0 Yes [id number] 500mg Take 1 Un shayna (NAPROSYN) -01 tablet by ity of 500 mg 00:00: mouth 2 [place] tablet 00 (two) Medical times Branch daily with meals. naproxen 2021-0 2022- No [id number] 500mg Take 1 U nivers (NAPROSYN) 11-10 tablet by ity of 500 mg 00:00: 00:00 mouth 2 [place] tablet 00 :00 (two) Medical times Branch daily with meals. amoxicillin 2021-0 2022- Yes [id number] 500mg Take 1 Univers 500 mg 11-10 capsule by ity of capsule 00:00: 04:59 mouth 3 [place] 00 :00 (three) Medical times Branch daily for 10 days. losartan 202-0 Yes 100mg QD Take 100 [facility] (Cozaar) 5-20 mg by Health 100 MG 00:00: mouth 1 tablet 00 (one) time each day. losartan 202-0 Yes 100mg QD Take 100 [facility] (Cozaar) 5-20 mg by Health 100 MG 00:00: mouth 1 tablet 00 (one) time each day. tolterodine 2021-0 Yes TAKE 1 [facility] [place] (Detrol 3-31 CAPSULE Health LA) 4 MG 24 11:09: DAILY hr capsule 54 Sennosides- 2021-0 Yes QD Take by [facility] Docusate 3-31 mouth 1 Health Sodium 11:09: (one) time (STOOL 54 each day. SOFTENER/LA XATIVE PO) traMADol 2021-0 Yes 50mg Q.[id number] Take 50 mg [facility] (Ultram) 50 3-31 [id number] by mouth 3 Health MG tablet 11:09: 3D (three) 54 times a day. valsartan 2021-0 Yes 320mg QD Take 320 [facility] (Diovan) 3-31 mg by Health 160 MG 11:09: mouth 1 tablet 54 (one) time each day. tiZANidine 2021-0 Yes 4mg Q.5D Take 4 mg [facility] (Zanaflex) 3-31 by mouth 2 Hea lth 4 MG 11:09: (two) capsule 54 times a day. furosemide 2021-0 Yes 40mg QD Take 40 mg U T (Lasix) 40 3-31 by mouth 1 Hea lth MG tablet 11:09: (one) time 54 each day. Calcium 2021-0 Yes QD Take by UT Carbonate 3-31 mouth 1 Health Antacid 11:09: (one) time (TUMS E-X 54 each day. PO) bimatoprost 2021-0 Yes 1[drp] 1 drop [facility] (Lumigan) 3-31 every Health 0.01 % 11:09: night. ophthalmic 54 solution methotrexat 0 2022- No [id number] PO, take UT e 2.5 MG 09-09 five Health tablet 00:00: 04:59 tablets 00 :00 Qweek, Sennosides- 2021-0 Yes QD Take by [facility] Docusate 31 mouth 1 Health Sodium 13:08: (one) time (STOOL 36 each day. SOFTENER/LA XATIVE PO) traMADol 2021-0 Yes 50mg Q.[id number] Take 50 mg [facility] (Ultram) 50 07-12 [id number] by mouth 3 Health MG tablet 13:08: 3D (three) 36 times a day. tiZANidine 2021-0 Yes 4mg Q.5D Take 4 mg [facility] (Zanaflex) 07-12 by mouth 2 Hea lth 4 MG 13:08: (two) capsule 36 times a day. bimatoprost 2021-0 Yes 1[drp] 1 drop [facility] (Lumigan) 07-12 every Health 0.01 % 13:08: night. ophthalmic 36 solution Sennosides- 0 Yes QD Take by [facility] Docusate 31 mouth 1 Health Sodium 13:08: (one) time (STOOL 36 each day. SOFTENER/LA XATIVE PO) traMADol 2021-0 Yes 50mg [id number] Take 50 mg [facility] (Ultram) 50 07-12 [id number] by mouth 3 Health MG tablet 13:08: 3D (three) 36 times a day. tiZANidine 2021-0 Yes 4mg Q.5D Take 4 mg [facility] (Zanaflex) 07-12 by mouth 2 [facility] 4 MG 13:08: (two) capsule 36 times a day. bimatoprost 2021-0 Yes 1[drp] 1 drop [facility] (Lumigan) -31 every Health 0.01 % 13:08: night. ophthalmic 36 solution tolterodine 2021-0 Yes TAKE 1 [facility] [place] (Detrol 07-12 CAPSULE [facility] [place]) 4 MG 24 13:06: DAILY hr capsule 51 valsartan 2021-0 Yes 320mg QD Take 320 [facility] (Diovan) 1-31 mg by Health 160 MG 13:06: mouth 1 tablet 51 (one) time each day. furosemide 2021-0 Yes 40mg QD Take 40 mg U T (Lasix) 40 07-12 by mouth 1 [facility] MG tablet 13:06: (one) time 51 each day. Calcium 2021-0 Yes QD Take by [facility] Carbonate 07-12 mouth 1 Health Antacid 13:06: (one) time (TUMS E-X 51 each day. PO) tolterodine 2021-0 Yes TAKE 1 [facility] (Detrol 07-12 CAPSULE Health LA) 4 MG 24 13:06: DAILY hr capsule 51 valsartan 2021-0 Yes 320mg QD Take 320 [facility] (Diovan) 1-31 mg by Health 160 MG 13:06: mouth 1 tablet 51 (one) time each day. furosemide 2021-0 Yes 40mg QD Take 40 mg U T (Lasix) 40 07-12 by mouth 1 Hea lth MG tablet 13:06: (one) time 51 each day. Calcium 2021-0 Yes QD Take by UT Carbonate 07-12 mouth 1 Health Antacid 13:06: (one) time (TUMS E-X 51 each day. PO) methotrexat 2021-0 2022- No [id number] PO, take UT e 2.5 MG 07-12 three Health tablet 00:00: 05:59 tablets 00 :00 Qweek, methotrexat 2021-0 3- No [id number] PO, take UT e 2.5 MG 07-12 three Health tablet 00:00: 05:59 tablets 00 :00 Qweek, folic acid 2021-2021- No [id number] 1mg QD Take 1 UT (Folvite) 07-12 tablet (1 He alth MG tablet 00:00: 04:59 mg total) 00 :00 by mouth 1 (one) time each day. folic acid 2021-0 2021- No [id number] 1mg QD Take 1 UT (Folvite) 07-12 tablet (1 He alth MG tablet 00:00: 04:59 mg total) 00 :00 by mouth 1 (one) time each day. folic acid 2021-0 2021- No [id number] 1mg QD Take 1 UT (Folvite) 1 07-12 tablet (1 He alth MG tablet 00:00: 04:59 mg total) 00 :00 by mouth 1 (one) time each day. folic acid No [id number] 1mg QD Take 1 UT (Folvite) 07-12 tablet (1 He alth MG tablet 00:00: 04:59 mg total) 00 :00 by mouth 1 (one) time each day. folic acid 2021- No [id number] 1mg QD Take 1 UT (Folvite) 07-12 tablet (1 He alth MG tablet 00:00: 04:59 mg total) 00 :00 by mouth 1 (one) time each day. methotrexat 2021- No [id number] PO, take UT e 2.5 MG 07-12 three Health tablet 00:00: 00:00 tablets 00 :00 Qweek, calcitriol 2022- No [id number] .5ug QD Take 1 U T (Rocaltrol) 06-16- capsule Heal th 0.5 MCG 00:00: 05:59 (0.5 mcg capsule 00 :00 total) by mouth 1 (one) time each day. calcitriol 2022- No [id number] .5ug QD Take 1 U T (Rocaltrol) 06-16- capsule Heal th 0.5 MCG 00:00: 05:59 (0.5 mcg capsule 00 :00 total) by mouth 1 (one) time each day. calcitriol 2022- No [id number] .5ug QD Take 1 U T (Rocaltrol) 06-16- capsule Heal th 0.5 MCG 00:00: 05:59 (0.5 mcg capsule 00 :00 total) by mouth 1 (one) time each day. calcitriol 2022- No [id number] .5ug QD Take 1 [facility] T (Rocaltrol) 06-16- capsule Heal th 0.5 MCG 00:00: 05:59 (0.5 mcg capsule 00 :00 total) by mouth 1 (one) time each day. calcitriol 2022- No [id number] .5ug QD Take 1 [facility] T (Rocaltrol) 06-16- capsule [facility]al th 0.5 MCG 00:00: 05:59 (0.5 mcg capsule 00 :00 total) by mouth 1 (one) time each day. calcitriol 2022- No [id number] .5ug QD Take 1 [facility] T (Rocaltrol) 06-16 capsule Heal th 0.5 MCG 00:00: 05:59 (0.5 mcg capsule 00 :00 total) by mouth 1 (one) time each day. calcitriol 2022- No [id number] .5ug QD Take 1 U T (Rocaltrol) 06-16 capsule Heal th 0.5 MCG 00:00: 05:59 (0.5 mcg capsule 00 :00 total) by mouth 1 (one) time each day. traMADoL No 100mg 100 mg, [facility] (ULTRAM) 06-12 Oral, ity of tablet 100 14:45: 13:45 ONCE, 1 [place] as mg 00 :00 dose, On Medical 06/12/21 Branch at 0845, Routine METHOCARBAM 2021- No None Unive rs OL 750 MG 06-12 Entered ity of ORAL TAB 07:44: 00:00 [place] 52 :00 [facility] PREDNISONE 0 Yes None Univers 10 MG ORAL 06-12 Entered ity of TAB 07:31: [address] METHOTREXAT 0 Yes None Univer s E SODIUM 06-12 Entered ity of 2.5 MG ORAL 07:31: [address] PREDNISONE 0 Yes None Univers 10 MG ORAL 06-12 Entered ity of TAB 07:31: [address] METHOTREXAT 0 Yes None Univer s E SODIUM 06-12 Entered ity of 2.5 MG ORAL 07:31: [address] PREDNISONE 2021-0 Yes None [facility] 10 MG ORAL 06-12 Entered ity of TAB 07:31: [address] METHOTREXAT 0 Yes None Univer s E SODIUM 06-12 Entered ity of 2.5 MG ORAL 07:31: [address] PREDNISONE 2021-0 Yes None [facility] 10 MG ORAL - Entered ity of TAB 07:31: [address] METHOTREXAT 0 Yes None Univer s E SODIUM 06-12 Entered ity of 2.5 MG ORAL 07:31: [place] TAB 09 [facility] PREDNISONE 2021-0 Yes None [facility] 10 MG ORAL 06-12 Entered ity of TAB 07:31: [place] 09 Medical [facility] METHOTREXAT Yes None Univer s E SODIUM 06-12 Entered ity of 2.5 MG ORAL 07:31: [place] TAB 09 Medical Branch traMADoL 50 2021-0 Yes [id number] 50mg Take 1 [facility] ers mg tablet 1-01 tablet by ity o f 00:00: mouth [place] 00 every 4 Medical (four) Branch hours as needed for Pain (scale 1-3). Indication s: acute pain methocarbam 2021-0 Yes [id number] 750mg Take 1 [facility] oL 750 mg 1-01 tablet by ity o f tablet 00:00: mouth 4 00 (four) Medical times Branch daily. traMADoL 50 2021-0 Yes [id number] 50mg Take 1 [facility] mg tablet 1-01 tablet by ity o f 00:00: mouth [place] 00 every 4 Medical (four) Branch hours as needed for Pain (scale 1-3). Indication s: acute pain methocarbam 2021-0 Yes [id number] 750mg Take 1 [facility] oL 750 mg 1-01 tablet by ity o f tablet 00:00: mouth 4 00 (four) Medical times Branch daily. traMADoL 50 2021-0 Yes [id number] 50mg Take 1 [facility] ers mg tablet 1-01 tablet by ity o f 00:00: mouth [place] 00 every 4 Medical (four) Branch hours as needed for Pain (scale 1-3). Indication s: acute pain methocarbam 2021-0 Yes [id number] 750mg Take 1 [facility] oL 750 mg 1-01 tablet by ity o f tablet 00:00: mouth 4 00 (four) Medical times Branch daily. traMADoL 50 2021-0 Yes [id number] 50mg Take 1 [facility] ers mg tablet 1-01 tablet by ity o f 00:00: mouth [place] 00 every 4 Medical (four) Branch hours as needed for Pain (scale 1-3). Indication s: acute pain methocarbam 2021-0 Yes [id number] 750mg Take 1 [facility] oL 750 mg 1-01 tablet by ity o f tablet 00:00: mouth 4 00 (four) Medical times Branch daily. traMADoL 50 2021-0 Yes [id number] 50mg Take 1 [facility] ers mg tablet 1-01 tablet by ity o f 00:00: mouth [place] 00 every 4 Medical (four) Branch hours as needed for Pain (scale 1-3). Indication s: acute pain methocarbam 2022-0 Yes [id number] 750mg Take 1 [facility] oL 750 mg 1-01 tablet by ity o f tablet 00:00: mouth 4 [place] 00 (four) Medical times Branch daily. traMADoL 50 2-0 Yes [id number] 50mg Take 1 Univ ers mg tablet 1-01 tablet by ity o f 00:00: mouth [place] 00 every 4 Medical (four) Branch hours as needed for Pain (scale 1-3). Indication s: acute pain methocarbam 2022-0 Yes [id number] 750mg Take 1 [facility] oL 750 mg 1-01 tablet by ity o f tablet 00:00: mouth 4 00 (four) Medical times Branch daily. traMADoL 50 2021-0 Yes [id number] 50mg Take 1 [facility] ers mg tablet 1-01 tablet by ity o f 00:00: mouth [place] 00 every 4 Medical (four) Branch hours as needed for Pain (scale 1-3). Indication s: acute pain methocarbam 2-0 Yes [id number] 750mg Take 1 [facility] oL 750 mg 1-01 tablet by ity o f tablet 00:00: mouth 4 00 (four) Medical times Branch daily. traMADoL 50 2-0 Yes [id number] 50mg Take 1 [facility] ers mg tablet 1-01 tablet by ity o f 00:00: mouth [place] 00 every 4 Medical (four) Branch hours as needed for Pain (scale 1-3). Indication s: acute pain methocarbam 2-0 Yes [id number] 750mg Take 1 [facility] oL 750 mg 1-01 tablet by ity o f tablet 00:00: mouth 4 [place] 00 (four) Medical times Branch daily. traMADoL 50 2-0 Yes [id number] 50mg Take 1 Univ ers mg tablet 1-01 tablet by ity o f 00:00: mouth [place] 00 every 4 Medical (four) Branch hours as needed for Pain (scale 1-3). Indication s: acute pain methocarbam 2022-0 Yes [id number] 750mg Take 1 [facility] oL 750 mg 1-01 tablet by ity o f tablet 00:00: mouth 4 [place] 00 (four) Medical times Branch daily. traMADoL 50 2022-0 Yes [id number] 50mg Take 1 Univ ers mg tablet - tablet by ity o f 00:00: mouth [place] 00 every 4 Medical (four) Branch hours as needed for Pain (scale 1-3). Indication s: acute pain methocarbam Yes [id number] 750mg Take 1 [facility] oL 750 mg 1- tablet by ity o f tablet 00:00: mouth 4 [place] 00 (four) Medical times Branch daily. Blood 2020-06 Yes [id number] CHECK UT Glucose 2-27 BLOOD Health Monitoring 00:00: SUGAR Suppl (ONE 00 THREE TOUCH ULTRA TIMES A 2) w/Device DAY kit Blood 2020-06 Yes [id number] CHECK UT Glucose 2-27 BLOOD Health Monitoring 00:00: SUGAR Suppl (ONE 00 THREE TOUCH ULTRA TIMES A 2) w/Device DAY kit Blood 2020-06 Yes [id number] CHECK UT Glucose 2-27 BLOOD Health Monitoring 00:00: SUGAR Suppl (ONE 00 THREE TOUCH ULTRA TIMES A 2) w/Device DAY kit Blood 2020-06 Yes [id number] CHECK UT Glucose 2-27 BLOOD Health Monitoring 00:00: SUGAR Suppl (ONE 00 THREE TOUCH ULTRA TIMES A 2) w/Device DAY kit Blood 2020-06 Yes [id number] CHECK UT Glucose 2-27 BLOOD Health Monitoring 00:00: SUGAR Suppl (ONE 00 THREE TOUCH ULTRA TIMES A 2) w/Device DAY kit Blood 2020-06 Yes [id number] CHECK UT Glucose 2-27 BLOOD Health Monitoring 00:00: SUGAR Suppl (ONE 00 THREE TOUCH ULTRA TIMES A 2) w/Device DAY kit Blood 2020-06 Yes [id number] CHECK UT Glucose 2-27 BLOOD Health Monitoring 00:00: SUGAR Suppl (ONE 00 THREE TOUCH ULTRA TIMES A 2) w/Device DAY kit tolterodine 2020-06 Yes TAKE 1 [facility] (Detrol 2-16 CAPSULE Health LA) 4 MG 24 10:48: DAILY hr capsule 31 Sennosides- 2020-06 Yes QD Take by UT Docusate 2-16 mouth 1 Health Sodium 10:48: (one) time (STOOL 31 each day. SOFTENER/LA XATIVE PO) traMADol 2020-06 Yes 50mg Q.[id number] Take 50 mg UT (Ultram) 50 2-16 [id number] by mouth 3 Health MG tablet 10:48: 3D (three) 31 times a day. valsartan 2020-06 Yes 320mg QD Take 320 UT (Diovan) 2-16 mg by Health 160 MG 10:48: mouth 1 tablet 31 (one) time each day. tiZANidine 2020-06 Yes 4mg Q.5D Take 4 mg UT (Zanaflex) 2-16 by mouth 2 Hea lth 4 MG 10:48: (two) capsule 31 times a day. furosemide 2020-06 Yes 40mg QD Take 40 mg U T (Lasix) 40 2-16 by mouth 1 Hea lth MG tablet 10:48: (one) time 31 each day. Calcium 2020-06 Yes QD Take by UT Carbonate 2-16 mouth 1 Health Antacid 10:48: (one) time (TUMS E-X 31 each day. PO) tolterodine 2020-06 Yes TAKE 1 [facility] (Detrol 2-16 CAPSULE Health LA) 4 MG 24 10:48: DAILY hr capsule 31 Sennosides- 2020-06 Yes QD Take by UT Docusate 2-16 mouth 1 Health Sodium 10:48: (one) time (STOOL 31 each day. SOFTENER/LA XATIVE PO) traMADol 2020-06 Yes 50mg Q.[id number] Take 50 mg UT (Ultram) 50 2-16 [id number] by mouth 3 Health MG tablet 10:48: 3D (three) 31 times a day. valsartan 2020-06 Yes 320mg QD Take 320 UT (Diovan) 2-16 mg by Health 160 MG 10:48: mouth 1 tablet 31 (one) time each day. tiZANidine 2020-06 Yes 4mg Q.5D Take 4 mg UT (Zanaflex) 2-16 by mouth 2 Hea lth 4 MG 10:48: (two) capsule 31 times a day. furosemide 2020-06 Yes 40mg QD Take 40 mg U T (Lasix) 40 2-16 by mouth 1 Hea lth MG tablet 10:48: (one) time 31 each day. Calcium 2020-06 Yes QD Take by UT Carbonate 2-16 mouth 1 Health Antacid 10:48: (one) time (TUMS E-X 31 each day. PO) ezetimibe 2020-06 Yes [id number] 10mg Take 1 UT (Zetia) 10 2-16 tablet (10 Hea lth MG tablet 00:00: mg total) 00 by mouth every night. ezetimibe 2020-06 Yes [id number] 10mg Take 1 UT (Zetia) 10 2-16 tablet (10 Hea lth MG tablet 00:00: mg total) 00 by mouth every night. ezetimibe 2020-06 Yes [id number] 10mg Take 1 UT (Zetia) 10 2-16 tablet (10 Hea lth MG tablet 00:00: mg total) 00 by mouth every night. ezetimibe 2020-06 Yes [id number] 10mg Take 1 UT (Zetia) 10 2-16 tablet (10 Hea lth MG tablet 00:00: mg total) 00 by mouth every night. ezetimibe 2020-06 Yes [id number] 10mg Take 1 UT (Zetia) 10 2-16 tablet (10 Hea lth MG tablet 00:00: mg total) 00 by mouth every night. ezetimibe 2020-06 Yes [id number] 10mg Take 1 UT (Zetia) 10 2-16 tablet (10 Hea lth MG tablet 00:00: mg total) 00 by mouth every night. ezetimibe 2020-06 Yes [id number] 10mg Take 1 UT (Zetia) 10 2-16 tablet (10 Hea lth MG tablet 00:00: mg total) 00 by mouth every night. dapaglifloz 2020-06- No [id number] 10mg QD Take 1 UT in 2-16 12-17 tablet (10 [facility]) 00:00: 05:59 mg total) 10 MG 00 :00 by mouth 1 (one) time each day. dapaglifloz 2020-06- No [id number] 10mg QD Take 1 UT in 2-16 12-17 tablet (10 [facility]) 00:00: 05:59 mg total) 10 MG 00 :00 by mouth 1 (one) time each day. dapaglifloz 2020-06- No [id number] 10mg QD Take 1 UT in 2-16 12-17 tablet ([address] [place] [address]) 00:00: 05:59 mg total) 10 MG 00 :00 by mouth 1 (one) time each day. dapaglifloz 2020-06- No [id number] 10mg QD Take 1 UT in 2-16 12-17 tablet (10 [facility]) 00:00: 05:59 mg total) 10 MG 00 :00 by mouth 1 (one) time each day. dapaglifloz 2020-06- No [id number] 10mg QD Take 1 UT in 2-16 12-17 tablet (10 [facility]) 00:00: 05:59 mg total) 10 MG 00 :00 by mouth 1 (one) time each day. dapaglifloz 2020-06- No [id number] 10mg QD Take 1 UT in 2-16 12-17 tablet ([address] [place] [address]) 00:00: 05:59 mg total) 10 MG 00 :00 by mouth 1 (one) time each day. dapaglifloz 2020-06- No [id number] 10mg QD Take 1 UT in -16 -17 tablet ([address] [place] [address]) 00:00: 05:59 mg total) 10 MG 00 :00 by mouth 1 (one) time each day. hydrOXYzine 2020-0 Yes [id number] 10mg Q6H Take 1 UT HCl 9-20 tablet (10 Health (Atarax) 10 00:00: mg total) MG tablet 00 by mouth every 6 (six) hours if needed for itching for up to 10 days. hydrOXYzine 2020-0 Yes [id number] 10mg Q6H Take 1 UT HCl 9-20 tablet (10 Health (Atarax) 10 00:00: mg total) MG tablet 00 by mouth every 6 (six) hours if needed for itching for up to 10 days. hydrOXYzine 2020-0 Yes [id number] 10mg Q6H Take 1 UT HCl 9-20 tablet (10 Health (Atarax) 10 00:00: mg total) MG tablet 00 by mouth every 6 (six) hours if needed for itching for up to 10 days. hydrOXYzine 2020-0 Yes [id number] 10mg Q6H Take 1 UT HCl 9-20 tablet (10 Health (Atarax) 10 00:00: mg total) MG tablet 00 by mouth every 6 (six) hours if needed for itching for up to 10 days. hydrOXYzine Yes [id number] 10mg Q6H Take 1 UT HCl 9-20 tablet (10 Health (Atarax) 10 00:00: mg total) MG tablet 00 by mouth every 6 (six) hours if needed for itching for up to 10 days. hydrOXYzine Yes [id number] 10mg Q6H Take 1 UT HCl 9-20 tablet (10 Health (Atarax) 10 00:00: mg total) MG tablet 00 by mouth every 6 (six) hours if needed for itching for up to 10 days. hydrOXYzine Yes [id number] 10mg Q6H Take 1 UT HCl 9-20 tablet (10 Health (Atarax) 10 00:00: mg total) MG tablet 00 by mouth every 6 (six) hours if needed for itching for up to 10 days. Insulin Pen Yes [id number] USE UP TO UT Needle (BD 8-12 5 NEEDLES [facility]al th Pen Needle 00:00: DAILY [employer]) 32G X 4 MM misc Insulin Pen Yes [id number] USE UP TO UT Needle (BD 8-12 5 NEEDLES [facility]al th Pen Needle 00:00: DAILY [employer] Gen) 32G X 4 MM misc Insulin Pen Yes [id number] USE UP TO UT Needle (BD 8-12 5 NEEDLES Heal th Pen Needle 00:00: DAILY [employer] Gen) 32G X 4 MM misc Insulin Pen Yes [id number] USE UP TO UT Needle (BD 8-12 5 NEEDLES Heal th Pen Needle 00:00: DAILY [employer] Gen) 32G X 4 MM misc Insulin Pen Yes [id number] USE UP TO UT Needle (BD 8-12 5 NEEDLES Heal th Pen Needle 00:00: DAILY [employer] Gen) 32G X 4 MM misc Insulin Pen Yes [id number] USE UP TO UT Needle (BD 8-12 5 NEEDLES Heal th Pen Needle 00:00: DAILY [employer] Gen) 32G X 4 MM misc Insulin Pen Yes [id number] USE UP TO UT Needle (BD 8-12 5 NEEDLES Heal th Pen Needle 00:00: DAILY [employer] Gen) 32G X 4 MM misc insulin 2021- No [id number] Inject 44 UT glargine 01-21- Units Health (Basaglar 00:00: 04:59 under the KwikPen) 00 :00 skin 1 100 UNIT/ML (one) time injection each day in the morning. insulin 2021- No [id number] Inject 20 UT aspart 01-21- Units Health (NovoLOG 00:00: 04:59 under the FLEXPEN) 00 :00 skin 1 100 UNIT/ML (one) time injection each day with breakfast AND 28 Units 1 (one) time each day with dinner. fluvastatin 2021- No [id number] 20mg Take 1 UT (Lescol) 20 01-21 capsule Heal th MG capsule 00:00: 04:59 (20 mg 00 :00 total) by mouth every night. Victoza 18 2021- No [id number] 1.2mg QD Inject 1.2 UT MG/3ML 01-21- mg under Health injection 00:00: 04:59 the skin 1 00 :00 (one) time each day. insulin 2021- No [id number] Inject 44 UT glargine 01-21- Units Health (Basaglar 00:00: 04:59 under the KwikPen) 00 :00 skin 1 100 UNIT/ML (one) time injection each day in the morning. insulin 2021- No [id number] Inject 20 UT aspart 01-21- Units Health (NovoLOG 00:00: 04:59 under the FLEXPEN) 00 :00 skin 1 100 UNIT/ML (one) time injection each day with breakfast AND 28 Units 1 (one) time each day with dinner. fluvastatin 2021- No [id number] 20mg Take 1 UT (Lescol) 20 01-21 capsule Heal th MG capsule 00:00: 04:59 (20 mg 00 :00 total) by mouth every night. Victoza 18 2021- No [id number] 1.2mg QD Inject 1.2 UT MG/3ML 01-21- mg under Health injection 00:00: 04:59 the skin 1 00 :00 (one) time each day. insulin 2021- No [id number] Inject 44 UT glargine 8-13 Units Health (Basaglar 00:00: 04:59 under the KwikPen) 00 :00 skin 1 100 UNIT/ML (one) time injection each day in the morning. insulin 2021- No [id number] Inject 20 UT aspart 8- Units Health (NovoLOG 00:00: 04:59 under the FLEXPEN) 00 :00 skin 1 100 UNIT/ML (one) time injection each day with breakfast AND 28 Units 1 (one) time each day with dinner. fluvastatin 2021- No [id number] 20mg Take 1 UT (Lescol) 20 01-21- capsule Heal th MG capsule 00:00: 04:59 (20 mg 00 :00 total) by mouth every night. Victoza 18 2021- No [id number] 1.2mg QD Inject 1.2 UT MG/3ML 01-21- mg under Health injection 00:00: 04:59 the skin 1 00 :00 (one) time each day. insulin 2021- No [id number] Inject 44 UT glargine 01-21- Units Health (Basaglar 00:00: 04:59 under the KwikPen) 00 :00 skin 1 100 UNIT/ML (one) time injection each day in the morning. insulin 2021- No [id number] Inject 20 UT aspart 01-21- Units Health (NovoLOG 00:00: 04:59 under the FLEXPEN) 00 :00 skin 1 100 UNIT/ML (one) time injection each day with breakfast AND 28 Units 1 (one) time each day with dinner. fluvastatin 2021- No [id number] 20mg Take 1 UT (Lescol) 20 01-21- capsule Heal th MG capsule 00:00: 04:59 (20 mg 00 :00 total) by mouth every night. Victoza 18 2021- No [id number] 1.2mg QD Inject 1.2 UT MG/3ML 01-21- mg under Health injection 00:00: 04:59 the skin 1 00 :00 (one) time each day. insulin 2021- No [id number] Inject 44 UT glargine 01-21-13 Units Health (Basaglar 00:00: 04:59 under the KwikPen) 00 :00 skin 1 100 UNIT/ML (one) time injection each day in the morning. insulin 2021- No [id number] Inject 20 UT aspart 8-13 Units Health (NovoLOG 00:00: 04:59 under the FLEXPEN) 00 :00 skin 1 100 UNIT/ML (one) time injection each day with breakfast AND 28 Units 1 (one) time each day with dinner. fluvastatin 2021- No [id number] 20mg Take 1 UT (Lescol) 20 01-21- capsule Heal th MG capsule 00:00: 04:59 (20 mg 00 :00 total) by mouth every night. Victoza 18 2021- No [id number] 1.2mg QD Inject 1.2 UT MG/3ML 01-21- mg under Health injection 00:00: 04:59 the skin 1 00 :00 (one) time each day. insulin 2021- No [id number] Inject 44 UT glargine 01-21- Units Health (Basaglar 00:00: 04:59 under the KwikPen) 00 :00 skin 1 100 UNIT/ML (one) time injection each day in the morning. insulin 2021- No [id number] Inject 20 UT aspart 01-21- Units Health (NovoLOG 00:00: 04:59 under the FLEXPEN) 00 :00 skin 1 100 UNIT/ML (one) time injection each day with breakfast AND 28 Units 1 (one) time each day with dinner. fluvastatin 2021- No [id number] 20mg Take 1 UT (Lescol) 20 01-21- capsule Heal th MG capsule 00:00: 04:59 (20 mg 00 :00 total) by mouth every night. Victoza 18 2021- No [id number] 1.2mg QD Inject 1.2 UT MG/3ML 01-21-13 mg under Health injection 00:00: 04:59 the skin 1 00 :00 (one) time each day. insulin 2021- No [id number] Inject 44 UT glargine 01-21 Units Health (Basaglar 00:00: 04:59 under the KwikPen) 00 :00 skin 1 100 UNIT/ML (one) time injection each day in the morning. insulin 2021- No [id number] Inject 20 UT aspart 01-21 Units Health (NovoLOG 00:00: 04:59 under the FLEXPEN) 00 :00 skin 1 100 UNIT/ML (one) time injection each day with breakfast AND 28 Units 1 (one) time each day with dinner. fluvastatin 2021- No [id number] 20mg Take 1 UT (Lescol) 20 01-21 capsule Heal th MG capsule 00:00: 04:59 (20 mg 00 :00 total) by mouth every night. Victoza 18 2021- No [id number] 1.2mg QD Inject 1.2 UT MG/3ML 01-21 mg under Health injection 00:00: 04:59 the skin 1 00 :00 (one) time each day. levothyroxi Yes [id number] Take U T ne 12-31 levothyrox Health (Synthroid, 00:00: ine 150 Levoxyl) 00 mcg 6.5 150 MCG tablets tablet per week (one tablet Monday through Monday and 1/2 tablet on Monday) levothyroxi Yes [id number] Take U T ne 12-31 levothyrox Health (Synthroid, 00:00: ine 150 Levoxyl) 00 mcg 6.5 150 MCG tablets tablet per week (one tablet Monday through Monday and 1/2 tablet on Monday) levothyroxi Yes [id number] Take U T ne 12-31 levothyrox Health (Synthroid, 00:00: ine 150 Levoxyl) 00 mcg 6.5 150 MCG tablets tablet per week (one tablet Monday through Monday and 1/2 tablet on Monday) levothyroxi Yes [id number] Take U T ne 12-31 levothyrox Health (Synthroid, 00:00: ine 150 Levoxyl) 00 mcg 6.5 150 MCG tablets tablet per week (one tablet Monday through Monday and 1/2 tablet on Monday) levothyroxi Yes [id number] Take U T ne 12-31 levothyrox Health (Synthroid, 00:00: ine 150 Levoxyl) 00 mcg 6.5 150 MCG tablets tablet per week (one tablet Monday through Monday and 1/2 tablet on Monday) levothyroxi 0 Yes [id number] Take U T ne 12-31 levothyrox Health (Synthroid, 00:00: ine 150 Levoxyl) 00 mcg 6.5 150 MCG tablets tablet per week (one tablet Monday through Monday and 1/2 tablet on Monday) levothyroxi Yes [id number] Take U T ne 12-31 levothyrox Health (Synthroid, 00:00: ine 150 Levoxyl) 00 mcg 6.5 150 MCG tablets tablet per week (one tablet Monday through Monday and 1/2 tablet on Monday) OneTouch Yes [id number] Test 3 UT [place] 7-15 times Health Lancets 33G 00:00: daily misc 00 OneTouch 0 Yes [id number] Test 3 UT [place] 7-15 times Health Lancets 33G 00:00: daily misc 00 OneTouch 0 Yes [id number] Test 3 UT [place] 7-15 times Health Lancets 33G 00:00: daily misc 00 OneTouch 0 Yes [id number] Test 3 UT [place] 7-15 times Health Lancets 33G 00:00: daily misc 00 OneTouch 0 Yes [id number] Test 3 UT [place] 7-15 times Health Lancets 33G 00:00: daily misc 00 OneTouch 0 Yes [id number] Test 3 UT [place] 7-15 times Health Lancets 33G 00:00: daily misc 00 OneTouch 0 Yes [id number] Test 3 [facility] [place] 7-15 times Health Lancets 33G 00:00: daily misc 00 glucose 2020-0 2021- No [id number] TEST 3 UT blood 7-15 07-16 TIMES Health (OneTouch 00:00: 04:59 DAILY Ultra) test 00 :00 strip glucose 2020-0 2- No [id number] TEST 3 UT blood -12-25 TIMES Health (OneTouch 00:00: 04:59 DAILY Ultra) test 00 :00 strip glucose 2020-0 2021- No [id number] TEST 3 UT blood -24 12- TIMES Health (OneTouch 00:00: 04:59 DAILY Ultra) test 00 :00 strip glucose 2020-0 2021- No [id number] TEST 3 UT blood 12-24 TIMES Health (OneTouch 00:00: 04:59 DAILY Ultra) test 00 :00 strip glucose 2020-0 2021- No [id number] TEST 3 UT blood -12-25 TIMES Health (OneTouch 00:00: 04:59 DAILY Ultra) test 00 :00 strip glucose 2020-0 2021- No [id number] Check UT blood test 12-23 blood Health strip 00:00: 04:59 glucose 3 00 :00 times a day Lancets 2020-0 2- No [id number] Check UT (accu-chek 12-23 blood Health multiclix) 00:00: 04:59 glucose 3 lancets 00 :00 times a day glucose 2020-0 2021- No [id number] Check UT blood test 12-23 blood Health strip 00:00: 04:59 glucose 3 00 :00 times a day Lancets 2020-0 2- No [id number] Check UT (accu-chek 12-23 blood Health multiclix) 00:00: 04:59 glucose 3 lancets 00 :00 times a day glucose 2020-0 2- No [id number] Check UT blood test 12-23 blood Health strip 00:00: 04:59 glucose 3 00 :00 times a day Lancets 2020-0 2- No [id number] Check UT (accu-chek 12-23 blood Health multiclix) 00:00: 04:59 glucose 3 lancets 00 :00 times a day glucose 2020-0 2- No [id number] Check UT blood test 12-23 blood Health strip 00:00: 04:59 glucose 3 00 :00 times a day Lancets 2020-0 2- No [id number] Check UT (accu-chek 7-15 blood Health multiclix) 00:00: 04:59 glucose 3 lancets 00 :00 times a day glucose 2020-0 2022- No [id number] Check UT blood test 12-23 blood Health strip 00:00: 04:59 glucose 3 00 :00 times a day Lancets 2020-0 2- No [id number] Check UT (accu-chek 12-2315 blood Health multiclix) 00:00: 04:59 glucose 3 lancets 00 :00 times a day Blood 2020-0 Yes [id number] TEST 3 UT Glucose 7-13 TIMES A Health Monitoring 00:00: DAY Suppl 00 (Blood Glucose Monitor System) w/Device kit Glucose 2020-0 Yes [id number] TEST 3 UT Blood 7-13 TIMES A Health (Blood 00:00: DAY Glucose 00 Test) strip Lancets 2020-0 Yes [id number] TEST 3 UT misc 7-13 TIMES A Health 00:00: DAY 00 Blood 2020-0 Yes [id number] TEST 3 UT Glucose 7-13 TIMES A Health Monitoring 00:00: DAY Suppl 00 (Blood Glucose Monitor System) w/Device kit Glucose 2020-0 Yes [id number] TEST 3 UT Blood 7-13 TIMES A Health (Blood 00:00: DAY Glucose 00 Test) strip Lancets 2020-0 Yes [id number] TEST 3 UT misc 7-13 TIMES A Health 00:00: DAY 00 Blood 2020-0 Yes [id number] TEST 3 [facility] Glucose 7-13 TIMES A [facility] Monitoring 00:00: DAY Suppl 00 (Blood Glucose Monitor System) w/Device kit Glucose 2020-0 Yes [id number] TEST 3 UT Blood 7-13 TIMES [facility] (Blood 00:00: DAY Glucose 00 Test) strip Lancets 2020-0 Yes [id number] TEST 3 UT misc 7-13 TIMES [facility] 00:00: DAY 00 Blood 2020-0 Yes [id number] TEST 3 UT Glucose 7-13 TIMES A [facility] Monitoring 00:00: DAY Suppl 00 (Blood Glucose Monitor System) w/Device kit Glucose 2020-0 Yes [id number] TEST 3 UT Blood 7-13 TIMES A [facility] (Blood 00:00: DAY Glucose 00 Test) strip Lancets 2020-0 Yes [id number] TEST 3 UT misc 7-13 TIMES A Health 00:00: DAY 00 Blood 1-0 Yes [id number] TEST 3 UT Glucose 7-13 TIMES A [facility] Monitoring 00:00: DAY Suppl 00 (Blood Glucose Monitor System) w/Device kit Glucose 2020-0 Yes [id number] TEST 3 UT Blood 7-13 TIMES [facility] (Blood 00:00: DAY Glucose 00 Test) strip Lancets 2020-0 Yes [id number] TEST 3 UT misc 7-13 TIMES A Health 00:00: DAY 00 Blood 2020-0 Yes [id number] TEST 3 UT Glucose 7-13 TIMES A [facility] Monitoring 00:00: DAY Suppl 00 (Blood Glucose Monitor System) w/Device kit Glucose 2020-0 Yes [id number] TEST 3 UT Blood 7-13 TIMES [facility] (Blood 00:00: DAY Glucose 00 Test) strip Lancets 2020-0 Yes [id number] TEST 3 UT misc 7-13 TIMES A Health 00:00: DAY 00 Blood 2020-0 Yes [id number] TEST 3 UT Glucose 7-13 TIMES A [facility] Monitoring 00:00: DAY Suppl 00 (Blood Glucose Monitor System) w/Device kit Glucose 2020-0 Yes [id number] TEST 3 UT Blood 7-13 TIMES [facility] (Blood 00:00: DAY Glucose 00 Test) strip Lancets 2020-0 Yes [id number] TEST 3 UT misc 7-13 TIMES A Health 00:00: DAY 00 Continuous 2020-0 Yes [id number] Use as UT Blood Gluc 5-18 instructed Hea lth Sensor 00:00: (FreeStyle 00 [facility] sensor system) misc Continuous 2020-0 Yes [id number] Use as UT Blood Gluc 5-18 instructed Hea lth Sensor 00:00: (FreeStyle 00 [facility] sensor system) misc Continuous 2020-0 Yes [id number] Use as UT Blood Gluc 5-18 instructed Hea lth Sensor 00:00: (FreeStyle 00 [facility] sensor system) misc Continuous 2020-0 Yes [id number] Use as UT Blood Gluc 5-18 instructed Hea lth Sensor 00:00: (FreeStyle 00 [facility] sensor system) misc Continuous 2021-0 Yes [id number] Use as UT Blood Gluc 5-18 instructed Hea lth Sensor 00:00: (FreeStyle 00 [facility] sensor system) misc Continuous 2020-0 Yes [id number] Use as UT Blood Gluc 5-18 instructed Hea lth Sensor 00:00: (FreeStyle 00 [facility] sensor system) misc Continuous 2020-0 Yes [id number] Use as UT Blood Gluc 5-18 instructed Hea lth Sensor 00:00: (FreeStyle 00 [facility] sensor system) misc doxazosin 2020-0 Yes UT (Cardura) 2 5-17 Health MG tablet 00:00: 00 doxazosin 2020-0 Yes UT (Cardura) 2 5-17 Health MG tablet 00:00: 00 doxazosin 2020-0 Yes UT (Cardura) 2 5-17 Health MG tablet 00:00: 00 doxazosin 2020-0 Yes UT (Cardura) 2 5-17 Health MG tablet 00:00: 00 doxazosin 2020-0 Yes UT (Cardura) 2 5-17 Health MG tablet 00:00: 00 doxazosin 2020-0 Yes UT (Cardura) 2 5-17 Health MG tablet 00:00: 00 doxazosin 2020-0 Yes UT (Cardura) 2 5-17 Health MG tablet 00:00: 00 travoprost 2020-0 Yes UT (Travatan 5- Health Z) 0.004 % 00:00: solution 00 ophthalmic solution travoprost 2020-0 Yes UT (Travatan 5- Health Z) 0.004 % 00:00: solution 00 ophthalmic solution travoprost 2020-0 Yes UT (Travatan 5- Health Z) 0.004 % 00:00: solution 00 ophthalmic solution travoprost 2020-0 Yes UT (Travatan 5- Health Z) 0.004 % 00:00: solution 00 ophthalmic solution travoprost 2020-0 Yes UT (Travatan 5- Health Z) 0.004 % 00:00: solution 00 ophthalmic solution travoprost 2020-0 Yes UT (Travatan 5- Health Z) 0.004 % 00:00: solution 00 ophthalmic solution travoprost 2020-0 Yes UT (Travatan 5- Health Z) 0.004 % 00:00: solution 00 ophthalmic solution BD Pen 2020-0 Yes UT Needle Makeda 4-19 Health U/F 32G X 4 00:00: MM misc 00 BD Pen 2020-0 Yes UT Needle Makeda 4-19 Health U/F 32G X 4 00:00: MM misc 00 BD Pen 2020-0 Yes UT Needle Makeda 4-19 Health U/F 32G X 4 00:00: MM misc 00 BD Pen 2020-0 Yes UT Needle Makeda 4-19 Health U/F 32G X 4 00:00: MM misc 00 BD Pen 2020-0 Yes UT Needle Makeda 4-19 Health U/F 32G X 4 00:00: MM misc 00 BD Pen 2020-0 Yes UT Needle Makeda 4-19 Health U/F 32G X 4 00:00: MM misc 00 BD Pen 2020-0 Yes UT Needle Makeda 4-19 Health U/F 32G X 4 00:00: MM misc 00 DULoxetine 2020-0 Yes UT (Cymbalta) 2-[address] 00:00: capsule 00 DULoxetine 2020-0 Yes UT (Cymbalta) 2-[address] 00:00: capsule 00 DULoxetine 2020-0 Yes UT (Cymbalta) 2-[address] 00:00: capsule 00 DULoxetine 2020-0 Yes UT (Cymbalta) 2-[address] 00:00: capsule 00 DULoxetine 2020-0 Yes UT (Cymbalta) 2-[address] 00:00: capsule 00 DULoxetine 2020-0 Yes UT (Cymbalta) 2-[address] 00:00: capsule 00 DULoxetine 2020-0 Yes UT (Cymbalta) 2-[address] 00:00: capsule 00 OneTouch 2019-1 Yes UT Verio test 2-03 Health strip 00:00: 00 OneTouch 2019-1 Yes UT Verio test 2-03 Health strip 00:00: 00 OneTouch 2019-1 Yes UT Verio test 2-03 Health strip 00:00: 00 OneTouch 2020-1 Yes UT Verio test 2- Health strip 00:00: 00 OneTouch 2019-1 Yes UT Verio test 2-03 Health strip 00:00: 00 OneTouch 2020-1 Yes UT Verio test 2-03 Health strip 00:00: 00 OneTouch 2020-1 Yes UT Verio test 2-03 Health strip 00:00: 00 Restasis 2020-0 Yes UT 0.05 % 8-15 Health ophthalmic 00:00: emulsion 00 Restasis 2020-0 Yes UT 0.05 % 8-15 Health ophthalmic 00:00: emulsion 00 Restasis 2020-0 Yes UT 0.05 % 8-15 Health ophthalmic 00:00: emulsion 00 Restasis 2020-0 Yes UT 0.05 % 8-15 Health ophthalmic 00:00: emulsion 00 Restasis 2020-0 Yes UT 0.05 % 8-15 Health ophthalmic 00:00: emulsion 00 Restasis 2020-0 Yes UT 0.05 % 8-15 Health ophthalmic 00:00: emulsion 00 Restasis 2020-0 Yes UT 0.05 % 8-15 Health ophthalmic 00:00: emulsion 00 METHOTREXAT Yes None Univer s E SODIUM 07-12 Entered ity of 2.5 MG ORAL 04:11: [address] FOLIC ACID Yes None Univers 1 MG ORAL -31 Entered ity of TAB 04:11: [address] LEVOTHYROXI Yes None Univer s NE 200 MCG - Entered ity of ORAL TAB 04:11: [address] METFORMIN Yes None Univers 500 MG ORAL - Entered ity o f TAB 04:11: [address] CALCITRIOL Yes None Univers 0.5 MCG - Entered ity of ORAL CAP 04:11: [address] FOLTRIN Yes None Univers ORAL -31 Entered ity of 04:11: [address] ENALAPRIL Yes None Univers MALEATE 20 - Entered ity of MG ORAL TAB 04:11: [address] HYDROXYCHLO Yes None Univer s ROQUINE 200 - Entered ity o f MG ORAL TAB 04:11: [address] AMLODIPINE Yes None Univers BESYLATE - Entered ity of ORAL 04:11: [address] PREDNISONE Yes None Univers 10 MG ORAL - Entered ity of TAB 04:11: [address] METHOCARBAM Yes None Univer s OL 750 MG 1-31 Entered ity of ORAL TAB 04:11: [address] HYDROCHLORO Yes None Univer s THIAZIDE 25 1-31 Entered ity o f MG ORAL TAB 04:11: [address] TRAMADOL 50 Yes 2 tabs q 6 Univers MG ORAL TAB -31 hours prn ity of 00:00: pain [place] 00 [facility] TRAMADOL 50 2021- No 2 tabs q 6 Univers MG ORAL TAB 1-31 06-12 hours prn it y of 00:00: 00:00 pain [place] 00 :00 [facility] FOLIC ACID Yes None Univers 1 MG ORAL 1-30 Entered ity of TAB 22:11: [address] LEVOTHYROXI Yes None Univer s NE 200 MCG 1-30 Entered ity of ORAL TAB 22:11: [address] METFORMIN Yes None Univers 500 MG ORAL 1-30 Entered ity o f TAB 22:11: [address] CALCITRIOL Yes None Univers 0.5 MCG 1-30 Entered ity of ORAL CAP 22:11: [address] FOLTRIN Yes None Univers ORAL 1-30 Entered ity of 22:11: [address] ENALAPRIL Yes None Univers MALEATE 20 1-30 Entered ity of MG ORAL TAB 22:11: [address] HYDROXYCHLO Yes None Univer s ROQUINE 200 1-30 Entered ity o f MG ORAL TAB 22:11: [address] AMLODIPINE Yes None Univers BESYLATE 1-30 Entered ity of ORAL 22:11: [address] FOLIC ACID Yes None Univers 1 MG ORAL 1-30 Entered ity of TAB 22:11: [address] LEVOTHYROXI Yes None Univer s NE 200 MCG 1-30 Entered ity of ORAL TAB 22:11: [address] METFORMIN Yes None Univers 500 MG ORAL 1-30 Entered ity o f TAB 22:11: [address] CALCITRIOL Yes None Univers 0.5 MCG 1-30 Entered ity of ORAL CAP 22:11: [address] FOLTRIN Yes None Univers ORAL 1-30 Entered ity of 22:11: [address] ENALAPRIL Yes None Univers MALEATE 20 1-30 Entered ity of MG ORAL TAB 22:11: [address] HYDROXYCHLO Yes None Univer s ROQUINE 200 1-30 Entered ity o f MG ORAL TAB 22:11: [address] AMLODIPINE Yes None Univers BESYLATE 1-30 Entered ity of ORAL 22:11: [address] FOLIC ACID Yes None Univers 1 MG ORAL 1-30 Entered ity of TAB 22:11: [address] LEVOTHYROXI Yes None Univer s NE 200 MCG 1-30 Entered ity of ORAL TAB 22:11: [address] METFORMIN Yes None Univers 500 MG ORAL 1-30 Entered ity o f TAB 22:11: [address] CALCITRIOL Yes None Univers 0.5 MCG 1-30 Entered ity of ORAL CAP 22:11: [address] FOLTRIN Yes None Univers ORAL 1-30 Entered ity of 22:11: [address] ENALAPRIL Yes None Univers MALEATE 20 1-30 Entered ity of MG ORAL TAB 22:11: [address] HYDROXYCHLO Yes None Univer s ROQUINE 200 1-30 Entered ity o f MG ORAL TAB 22:11: [address] AMLODIPINE Yes None Univers BESYLATE 1-30 Entered ity of ORAL 22:11: [address] FOLIC ACID Yes None Univers 1 MG ORAL 1-30 Entered ity of TAB 22:11: [address] LEVOTHYROXI Yes None Univer s NE 200 MCG 1-30 Entered ity of ORAL TAB 22:11: [address] METFORMIN Yes None Univers 500 MG ORAL 1-30 Entered ity o f TAB 22:11: [address] CALCITRIOL Yes None Univers 0.5 MCG 1-30 Entered ity of ORAL CAP 22:11: [address] FOLTRIN Yes None Univers ORAL 1-30 Entered ity of 22:11: [address] ENALAPRIL Yes None Univers MALEATE 20 1-30 Entered ity of MG ORAL TAB 22:11: [address] HYDROXYCHLO Yes None Univer s ROQUINE 200 1-30 Entered ity o f MG ORAL TAB 22:11: [address] AMLODIPINE Yes None Univers BESYLATE 1-30 Entered ity of ORAL 22:11: [address] FOLIC ACID Yes None Univers 1 MG ORAL 1-30 Entered ity of TAB 22:11: [address] LEVOTHYROXI Yes None Univer s NE 200 MCG 1-30 Entered ity of ORAL TAB 22:11: [address] METFORMIN Yes None Univers 500 MG ORAL 1-30 Entered ity o f TAB 22:11: [address] CALCITRIOL Yes None Univers 0.5 MCG 1-30 Entered ity of ORAL CAP 22:11: [address] FOLTRIN Yes None Univers ORAL 1-30 Entered ity of 22:11: [address] ENALAPRIL Yes None Univers MALEATE 20 1-30 Entered ity of MG ORAL TAB 22:11: [address] HYDROXYCHLO Yes None Univer s ROQUINE 200 1-30 Entered ity o f MG ORAL TAB 22:11: [address] AMLODIPINE Yes None Univers BESYLATE 1-30 Entered ity of ORAL 22:11: [address] HYDROCHLORO Yes None Univer s THIAZIDE 25 1-30 Entered ity o f MG ORAL TAB 22:11: [address] HYDROCHLORO Yes None Univer s THIAZIDE 25 1-30 Entered ity o f MG ORAL TAB 22:11: [address] HYDROCHLORO Yes None Univer s THIAZIDE 25 1-30 Entered ity o f MG ORAL TAB 22:11: [address] HYDROCHLORO Yes None Univer s THIAZIDE 25 1-30 Entered ity o f MG ORAL TAB 22:11: [address] HYDROCHLORO Yes None Univer s THIAZIDE 25 1-30 Entered ity o f MG ORAL TAB 22:11: [address] Vital Signs Vital Name Observation Time Observation Value Comments Source Systolic blood 2021-12-15 16:37:00 126 mm[Hg] Univer sity of pressure [facility] Diastolic blood 2021-12-15 16:37:00 56 mm[Hg] Unive rsity of pressure [facility] Heart rate 2021-12-15 16:37:00 63 /min [facility] Body temperature 2021-12-15 16:37:00 36.39 Josette [facility] [place] [facility] Respiratory rate 2021-12-15 16:37:00 18 /min [facility] Oxygen saturation in 2021-12-15 16:37:00 99 /min [facility] of Arterial blood by [facility] Pulse oximetry Branch Body weight 2021-12-15 09:13:00 110.995 kg [facility] BMI 2021-12-15 09:13:00 44.76 kg/m2 [facility] Body height 2021-12-03 11:19:00 157.5 cm [facility] [place] [facility] Systolic blood 2021-11-29 14:17:00 124 mm[Hg] Univer sity of pressure [place] [facility] Diastolic blood 2021-11-29 14:17:00 62 mm[Hg] Unive rsity of pressure [facility] Heart rate 2021-11-29 14:17:00 82 /min [facility] Body temperature 2021-11-29 14:17:00 36.94 Jostete [facility] [place] [facility] Respiratory rate 2021-11-29 14:17:00 18 /min [facility] [place] [facility] Body height 2021-11-29 14:17:00 157.5 cm [facility] Body weight 2021-11-29 14:17:00 92.534 kg [facility] BMI 2021-11-29 14:17:00 37.31 kg/m2 [facility] Oxygen saturation in 2021-11-29 14:17:00 97 /min University of Arterial blood by [facility] abdon Pulse oximetry Branch Systolic blood 2021-11-10 07:07:54 223 mm[Hg] Univer sity of pressure [facility] Diastolic blood 2021-11-10 07:07:54 93 mm[Hg] Unive rsity of pressure [facility] Heart rate 2021-11-10 07:07:54 66 /min [facility] Body temperature 2021-11-10 07:07:54 36.5 Josette [facility] Respiratory rate 2021-11-10 07:07:54 17 /min Univ ersity of [facility] Body height 2021-11-10 05:54:00 157.5 cm Universi ty of [facility] Body weight 2021-11-10 05:54:00 92.534 kg Universi ty [facility] BMI 2021-11-10 05:54:00 37.31 kg[facility] in 2021-11-10 05:49:00 96 /min [facility] Arterial blood by [facility] Pulse oximetry Branch Systolic blood 2021-09-09 16:07:00 128 mm[Hg] [facility] Diastolic blood 2021-09-09 16:07:00 71 mm[Hg] [facility] Heart rate 2021-09-09 16:07:00 71 /min [facility] Body temperature 2021-09-09 16:07:00 36.83 Josette [facility] Body weight 2021-09-09 16:07:00 97.932 kg [facility] BMI 2021-09-09 16:07:00 39.49 kg/m2 [facility] Systolic blood 2021-07-12 18:48:00 102 mm[Hg] [facility] pressure Diastolic blood 2021-07-12 18:48:00 63 mm[Hg] [facility] pressure Heart rate 2021-07-12 18:48:00 90 /min [facility] Body temperature 2021-07-12 18:48:00 36.44 Josette [facility] Body weight 2021-07-12 18:48:00 95.255 kg [facility] BMI 2021-07-12 18:48:00 38.41 kg/m2 [facility] Body temperature 2021-06-12 13:32:00 37.72 Josette [facility] Systolic blood 2021-06-12 13:29:00 125 mm[Hg] Univer sity of pressure [facility] Diastolic blood 2021-06-12 13:29:00 64 mm[Hg] Unive rsity of [facility] Heart rate 2021-06-12 13:29:00 82 /min [facility] Respiratory rate 2021-06-12 13:29:00 18 /min [facility] Body weight 2021-06-12 13:29:00 101.606 kg [facility] Oxygen saturation in 2021-06-12 13:29:00 97 /min [facility] Arterial blood by [facility] Pulse oximetry Branch Procedures Procedure Date / Time Performing Clinician Source Performed EXTERNAL PROVIDER RECORDS 2021-12-31 05:01:00 Doctor Unassigned, [facility] [place] PREPARE PACKED RBC 2021-12-15 19:54:34 Harjeet Burleson [facility] POCT GLUCOSE (AUTOMATED) 2021-12-15 16:38:00 Harjeet Burleson [facility] POCT GLUCOSE (AUTOMATED) 2021-12-15 12:52:00 Harjeet Burleson [facility] COMP. METABOLIC PANEL 2021-12-15 09:34:00 Otto Isbell [facility] ([id number]) [facility] POCT GLUCOSE (AUTOMATED) 2021-12-15 01:30:00 Harjeet Burleson [facility] POCT GLUCOSE (AUTOMATED) 2021-12-14 22:05:00 Harjeet Burleson [facility] DUPLEX VENOUS LEGS 2021-12-14 21:55:00 Otto Isbell [facility] BILATERAL - BY VASCULAR [facility] LAB POCT GLUCOSE (AUTOMATED) 2021-12-14 17:09:00 Harjeet Burleson [facility] XR CHEST 1 VW 2021-12-14 13:35:00 Ayesha Bateman [facility] POCT GLUCOSE (AUTOMATED) 2021-12-14 12:31:00 Harjeet Burleson [facility] COMP. METABOLIC PANEL 2021-12-14 08:30:00 Otto Isbell [facility] ([id number]) [facility] CBC WITH DIFF 2021-12-14 04:27:00 Otto Isbell [facility] PANEL IDENTIFICATION 2021-12-14 03:37:00 Ayesha Bateman [facility] ELUTION IDENTIFICATION 2021-12-14 03:37:00 [facility] 2021-12-14 03:37:00 Ayesha Bateman [facility] ZACHARY POLYSPECIFIC RESULT 2021-12-14 03:37:00 Ayesha Bateman [facility] ZACHARY MONOSPECIFIC IGG 2021-12-14 03:37:00 Ayesha Bateman [facility] RESULT [facility] ZACHARY MONOSPECIFIC C3 RESULT 2021-12-14 03:37:00 Ayesha Bateman [facility] POCT GLUCOSE (AUTOMATED) 2021-12-14 01:35:00 Benjy [facility] POCT GLUCOSE (AUTOMATED) 2021-12-13 21:59:00 Bejny [facility] POCT GLUCOSE (AUTOMATED) 2021-12-13 17:12:00 Benjy [facility] POCT GLUCOSE (AUTOMATED) 2021-12-13 12:37:00 Benjy [facility] BASIC METABOLIC PANEL (NA, 2021-12-13 09:19:00 Darío Rinaldi [facility] K, CL, CO2, GLUCOSE, BUN, Medica l Branch CREATININE, CA) CBC WITH DIFF 2021-12-13 09:19:00 [facility] N[facility]MINAL PRO-BNP 2021-12-13 09:19:00 Otto Isbell [facility] POCT GLUCOSE (AUTOMATED) 2021-12-13 01:37:00 Benjy [facility] VANCOMYCIN RANDOM LEVEL 2021-12-12 23:06:00 Darío Rinaldi [facility] POCT GLUCOSE (AUTOMATED) 2021-12-12 21:48:00 Benjy [facility] POCT GLUCOSE (AUTOMATED) 2021-12-12 16:45:00 Benjy [facility] IONIZED CALCIUM 2021-12-12 15:19:00 [facility] ([facility]OMATED) 2021-12-12 12:17:00 Benjy [facility] PHOSPHORUS 2021-12-12 09:31:00 Lauro [facility] MAGNESIUM 2021-12-12 09:31:00 [facility]OLIC [facility]EL (NA, 2021-12-12 09:31:[facility], CO2, GLUCOSE, BUN, Medica l Branch CREATININE, CA) CBC WITH DIFF 2021-12-12 09:31:00 [facility] PO[facility]SE (AUTOMATED) 2021-12-12 02:16:00 Benjy [facility] VANCOMYCIN RANDOM LEVEL 2021-12-11 23:26:00 [facility] WITHOUT DIFF 2021-12-11 23:26:00 Benjy [facility] POCT GLUCOSE (AUTOMATED) 2021-12-11 21:50:00 Benjy [facility] PREPARE PACKED RBC 2021-12-11 17:50:14 Rizwan [facility] POCT GLUCOSE (AUTOMATED) 2021-12-11 16:18:00 Colt Diaz [facility] TRANSFUSION RXN 2021-12-11 09:35:28 Rizwan [facility] TRXN WORKUP-ABBREVIATED 2021-12-11 09:26:48 Rizwan [facility] MAGNESIUM 2021-12-11 09:21:00 [facility]OLIC PANEL (NA, 2021-12-11 09:21:00 Jaylin Camargo [facility] K, CL, CO2, GLUCOSE, BUN, Medica l Branch CREATININE, CA) CBC WITH DIFF 2021-12-11 09:21:00 Raman [facility] POCT GLUCOSE (AUTOMATED) 2021-12-11 01:43:00 Colt Diaz [facility] PANEL IDENTIFICATION 2021-12-10 23:32:00 Jaylin Camargo [facility] ELUTION IDENTIFICATION 2021-12-10 23:32:00 Jaylin Camargo [facility] POCT GLUCOSE (AUTOMATED) 2021-12-10 22:33:00 Colt Diaz [facility] HB ABO GROUPING 2021-12-10 20:25:00 Raman [facility] POCT GLUCOSE (AUTOMATED) 2021-12-10 19:31:00 Colt Diaz [facility] THYROID STIMULATING 2021-12-10 19:23:00 Aidee Harvey [facility] HORMONE [facility] VANCOMYCIN RANDOM LEVEL 2021-12-10 19:23:00 Nirmala Vasquez [facility] TRANSTHORACIC ECHO (TTE) 2021-12-10 16:57:00 Mc [facility] COMPLETE W/ CONTRAST Medical [facility] POCT GLUCOSE (AUTOMATED) 2021-12-10 16:44:00 Colt Diaz [facility] CBC WITH DIFF 2021-12-10 14:20:00 Raman [facility] POCT GLUCOSE (AUTOMATED) 2021-12-10 14:19:00 Rizwan [facility] POCT GLUCOSE (AUTOMATED) 2021-12-10 12:54:00 Rizwan [facility] LACTIC ACID WHOLE BLOOD 2021-12-10 09:18:[address] [facility] MAGNESIUM 2021-12-10 09:17:00 Raman [facility] IONIZED CALCIUM 2021-12-10 09:17:00 [facility] 2021-12-10 09:17:00 [facility] Suresh [facility] ([id number]) (ALB,T.PRO,BILI Medical Branch T,BU/BC,ALT,AST,ALK PHOS) BASIC METABOLIC PANEL (NA, 2021-12-10 09:17:00 Jaylin Camargo [facility] K, CL, CO2, GLUCOSE, BUN, Medica l Branch CREATININE, CA) CBC WITH DIFF 2021-12-10 09:17:00 Jaylin Camargo [facility] EKG-12 LEAD 2021-12-10 07:12:46 Doctor Unassigned, [facility] [place] POCT GLUCOSE (AUTOMATED) 2021-12-10 06:17:[address] [facility] POCT GLUCOSE (AUTOMATED) 2021-12-10 04:16:[address] [facility] POCT GLUCOSE (AUTOMATED) 2021-12-10 02:03:[address] [facility] CT HEAD WO CONTRAST 2021-12-10 00:39:[facility] AC PANEL 20 + LACTIC ACID 2021-12-09 23:38:00 [facility] POCT GLUCOSE (AUTOMATED) 2021-12-09 23:28:[address] [facility] MISCELLANEOUS SEND OUT 2021-12-09 21:48:00 [facility] TEST [facility] COVID-19 (MOLECULAR 2021-12-09 21:22:00 Pedro Nirmala [facility] TESTING [facility] NUCLEIC ACID AMPLIFICATION) LAB ONLY COVID 2021-12-09 21:22:00 Silvia Vasquezssa [facility] INTERPRETATION [facility] HISTOPLASMA GALACTOMANNAN 2021-12-09 21:21:00 Nirmala Vasquez [facility] ANTIGEN QUANTITATIVE BY Medical Branch EIA, URINE POCT GLUCOSE (AUTOMATED) 2021-12-09 21:08:[address] [facility] POCT GLUCOSE (AUTOMATED) 2021-12-09 18:59:[address] [facility] HB HLA I TYPING COMPLETE 2021-12-09 17:56:00 Nicho Upton [facility] DNA [facility] HB HLA CLASS I AB HIGH 2021-12-09 17:56:00 [facility]o [facility] QUAL [facility] EKG-12 LEAD 2021-12-09 16:48:51 Doctor Unassigned, [facility] POCT GLUCOSE (AUTOMATED) 2021-12-09 16:29:[address] [facility] POCT GLUCOSE (AUTOMATED) 2021-12-09 13:10:00 Colt Diaz [facility] POCT GLUCOSE (AUTOMATED) 2021-12-09 10:26:[address] [facility] MAGNESIUM 2021-12-09 09:19:00 [facility] BASIC METABOLIC PANEL (NA, 2021-12-09 09:19:00 Jaylin Camargo [facility] K, CL, CO2, GLUCOSE, BUN, Medica l Branch CREATININE, CA) CBC WITH DIFF 2021-12-09 09:19:00 Raman [facility] POCT GLUCOSE (AUTOMATED) 2021-12-09 06:58:00 Colt Diaz [facility] POCT GLUCOSE (AUTOMATED) 2021-12-09 04:00:00 Colt Diaz [facility] POCT GLUCOSE (AUTOMATED) 2021-12-09 00:50:00 Colt Diaz [facility] BLOOD CULTURE SCREEN 2021-12-08 22:18:00 Jaylin Camargo [facility] CBC WITH DIFF 2021-12-08 21:31:00 Pino Restrepo [facility] POCT GLUCOSE (AUTOMATED) 2021-12-08 21:14:00 Colt Diaz [facility] TRANSFUSE PLATELETS 2021-12-08 19:15:00 Jaylin Camargo [facility] PREPARE PLATELETS 2021-12-08 19:08:27 Raman [facility] POCT GLUCOSE (AUTOMATED) 2021-12-08 19:08:00 Colt Diaz [facility] POCT GLUCOSE (AUTOMATED) 2021-12-08 17:10:00 Colt Diaz [facility] POCT GLUCOSE (AUTOMATED) 2021-12-08 13:45:00 Colt Diaz [facility] POCT GLUCOSE (AUTOMATED) 2021-12-08 11:31:00 Colt Diaz [facility] MAGNESIUM 2021-12-08 11:22:00 Jaylin Camargo [facility] BASIC METABOLIC PANEL (NA, 2021-12-08 11:22:00 Jaylin Camargo [facility] K, CL, CO2, GLUCOSE, BUN, Medica l Branch CREATININE, CA) CBC WITH DIFF 2021-12-08 11:22:00 Raman [facility] TRANSFUSE PLATELETS 2021-12-08 08:37:00 Suresh Bentley [facility] PREPARE PLATELETS 2021-12-08 08:28:56 [facility] ([facility]OMATED) 2021-12-08 08:24:00 Colt Diaz [facility] BASIC METABOLIC PANEL (NA, 2021-12-08 04:46:00 Ai Bentley [facility] K, CL, CO2, GLUCOSE, BUN, Medica l Branch CREATININE, CA) CBC WITH DIFF 2021-12-08 04:46:00 [facility]SE (AUTOMATED) 2021-12-08 03:52:00 Colt Diaz [facility] POCT GLUCOSE (AUTOMATED) 2021-12-08 01:24:00 Colt Diaz [facility] POCT GLUCOSE (AUTOMATED) 2021-12-07 21:54:00 Colt Diaz [facility] CBC WITH DIFF 2021-12-07 19:41:00 [facility] PO[facility]SE (AUTOMATED) 2021-12-07 19:14:[address] [facility] VANCOMYCIN TROUGH 2021-12-07 17:47:00 Vivienne Gallo [facility] POCT GLUCOSE (AUTOMATED) 2021-12-07 15:56:00 Colt Diaz [facility] MAGNESIUM 2021-12-07 14:16:00 Raman [facility] BASIC METABOLIC PANEL (NA, 2021-12-07 14:16:00 CamargoJaylin hogue [facility] K, CL, CO2, GLUCOSE, BUN, Medica l Branch CREATININE, CA) CBC WITH DIFF 2021-12-07 14:15:00 Camargo, [facility] FIBRINOGEN 2021-12-07 13:18:00 Merged With [facility] POCT GLUCOSE (AUTOMATED) 2021-12-07 12:33:[address] [facility] TRANSFUSE PLATELETS 2021-12-07 11:40:00 Mc Suresh [facility] PREPARE PLATELETS 2021-12-07 11:30:59 Mc Suresh [facility] TRANSFUSE PACKED RBC 2021-12-07 07:32:00 [facility] RBC 2021-12-07 07:24:01 Suresh Bentley [facility] IONIZED CALCIUM 2021-12-07 03:27:00 Mc Suresh [facility] BASIC METABOLIC PANEL (NA, 2021-12-07 03:27:00 Lauro [facility] K, CL, CO2, GLUCOSE, BUN, Medica l Branch CREATININE, CA) CBC WITHOUT DIFF 2021-12-07 03:27:00 [facility] POCT GLUCOSE (AUTOMATED) 2021-12-07 01:18:00 Colt Diaz [facility] IONIZED CALCIUM 2021-12-06 22:01:00 Mc Sruesh [facility] POCT GLUCOSE (AUTOMATED) 2021-12-06 21:33:00 Colt Diaz [facility] WOUND/ASPIRATE OR ABSCESS 2021-12-06 21:20:00 Lauro [facility] CULTURE [facility] WOUND CULTURE 2021-12-06 21:20:00 [facility] CBC WITHOUT DIFF 2021-12-06 20:29:00 Lauro [facility] VANCOMYCIN TROUGH 2021-12-06 19:24:00 Vivienne Gallo [facility] OCCULT (GUAIAC) BLOOD 2021-12-06 19:20:00 Suresh Bentley Un [facility] POCT GLUCOSE (AUTOMATED) 2021-12-06 16:00:[address] [facility] CBC WITH DIFF 2021-12-06 15:45:00 Suresh Bentley [facility] BASIC METABOLIC PANEL (NA, 2021-12-06 12:50:00 Colt Diaz [facility] K, CL, CO2, GLUCOSE, BUN, Medica l Branch CREATININE, CA) CBC WITH DIFF 2021-12-06 12:50:00 Rizwan [facility] POCT GLUCOSE (AUTOMATED) 2021-12-06 12:41:00 Colt Diaz [facility] TRANSFUSE PACKED RBC 2021-12-06 11:30:00 Suresh Bentley [facility] XR CHEST 1 VW 2021-12-06 11:00:31 Rizwan [facility] PREPARE PACKED RBC 2021-12-06 10:14:34 Suresh Bentley [facility] HSV 1&2, VZV NAAT 2021-12-06 05:51:00 Suresh Bentley [facility] sity [facility] MAGNESIUM 2021-12-06 05:49:00 Suresh Bentley [facility] COMP. METABOLIC PANEL 2021-12-06 05:49:00 Suresh Bentley [facility] ([id number]) [facility] CBC WITH DIFF 2021-12-06 05:49:00 Suresh Bentley [facility] TRANSFUSE PLATELETS 2021-12-06 02:50:00 Rizwan [facility] PREPARE PLATELETS 2021-12-06 02:21:17 Rizwan [facility] POCT GLUCOSE (AUTOMATED) 2021-12-06 01:47:[address] [facility] URINALYSIS 2021-12-05 22:54:00 Rizwan [facility] URINE CULTURE 2021-12-05 22:54:00 Colt Diaz [facility] POCT GLUCOSE (AUTOMATED) 2021-12-05 22:01:00 Terminangy, [facility]ino [facility] BLOOD CULT[facility] SCREEN 2021-12-05 18:47:00 Colt Diaz [facility] PROCALCITONIN 2021-12-05 18:47:00 Colt Diaz [facility] BLOOD CULTURE SCREEN 2021-12-05 18:36:00 Colt Diaz [facility] POCT GLUCOSE (AUTOMATED) 2021-12-05 17:40:00 Lauro, Pino U [facility] HB ABO GROUPING 2021-12-05 15:45:00 Rizwan [facility] POCT GLUCOSE (AUTOMATED) 2021-12-05 12:44:00 Terminella, Pino U [facility] CBC WITH DIFF 2021-12-05 11:03:00 Rizwan [facility] POCT GLUCOSE (AUTOMATED) 2021-12-05 10:05:00 Terminella, [facility] POCT GLUCOSE (AUTOMATED) 2021-12-05 05:47:00 Terminella, [facility] PO[facility]UCOSE (AUTOMATED) 2021-12-05 01:15:00 Terminella, Pino U niversity [facility] POCT GLUCOSE (AUTOMATED) 2021-12-04 21:31:00 Terminella, Pino [facility] POCT GLUCOSE (AUTOMATED) 2021-12-04 16:17:00 Terminella, Pino [facility] POCT GLUCOSE (AUTOMATED) 2021-12-04 12:31:00 Terminangy, Pino [facility] BASIC METABOLIC PANEL (NA, 2021-12-04 10:25:00 Colt Diaz [facility] K, CL, CO2, GLUCOSE, BUN, Medica l Branch CREATININE, CA) METHOTREXATE 2021-12-04 10:25:00 [facility] CBC WITH DIFF 2021-12-04 10:25:00 Malone Norm Hebert [facility] POCT GLUCOSE (AUTOMATED) 2021-12-04 09:37:00 Terminella, Pino U niversity [facility] POCT GLUCOSE (AUTOMATED) 2021-12-04 09:08:00 Terminella, Pino U niversity [facility] POCT GLUCOSE (AUTOMATED) 2021-12-04 06:24:00 Terminella, Pino U niversity [facility] POCT GLUCOSE (AUTOMATED) 2021-12-04 02:56:00 Terminella, Pino U niversity [facility] POCT GLUCOSE (AUTOMATED) 2021-12-03 22:00:00 Terminella, Pino U niversity [facility] POCT GLUCOSE (AUTOMATED) 2021-12-03 17:11:00 Terminella, Pino U niversity [facility] POCT GLUCOSE (AUTOMATED) 2021-12-03 15:31:00 Terminangy, Pino [facility] TRANSFUSE PACKED RBC 2021-12-03 14:37:00 Rizwan [facility] PREPARE PACKED RBC 2021-12-03 14:24:52 Rizwan [facility] POCT GLUCOSE (AUTOMATED) 2021-12-03 13:12:00 Terminella, Pino U niversity [facility] MAGNESIUM 2021-12-03 10:30:00 Raman [facility] BASIC METABOLIC PANEL (NA, 2021-12-03 10:30:00 Jaylin Camargo [facility] K, CL, CO2, GLUCOSE, BUN, Medica l Branch CREATININE, CA) CBC WITH DIFF 2021-12-03 10:30:00 Raman [facility] POCT GLUCOSE (AUTOMATED) 2021-12-03 10:29:00 Terminella, Pino U niversity [facility] POCT GLUCOSE (AUTOMATED) 2021-12-03 06:53:00 Terminella, Pino U niversity [facility] POCT GLUCOSE (AUTOMATED) 2021-12-03 04:52:00 Terminella, Pino U niversity [facility] POCT GLUCOSE (AUTOMATED) 2021-12-03 04:04:00 Terminella, Pino [facility] PO[facility] GLUCOSE (AUTOMATED) 2021-12-03 03:00:00 Terminella, Pino [facility] POCT GLUCOSE (AUTOMATED) 2021-12-03 02:13:00 Terminella, Pino [facility] BASIC METABOLIC PANEL (NA, 2021-12-02 23:02:00 Jaylin Camargo U [facility] K, CL, CO2, GLUCOSE, BUN, Medica l Branch CREATININE, CA) POCT GLUCOSE (AUTOMATED) 2021-12-02 23:01:00 Terminella, Pino [facility] POCT GLUCOSE (AUTOMATED) 2021-12-02 19:53:00 Terminella, Pino [facility] POCT GLUCOSE (AUTOMATED) 2021-12-02 18:27:00 Terminella, Pino [facility] POCT GLUCOSE (AUTOMATED) 2021-12-02 16:55:00 Terminella, Pino U niversity [facility] POCT GLUCOSE (AUTOMATED) 2021-12-02 16:13:00 Terminella, Pino [facility] POCT GLUCOSE (AUTOMATED) 2021-12-02 15:22:00 Terminella, Pino [facility] POCT GLUCOSE (AUTOMATED) 2021-12-02 14:08:00 Terminella, Pino [facility] METHOTREXATE 2021-12-02 14:06:00 Norm Becerra [facility] BASIC METABOLIC PANEL (NA, 2021-12-02 14:05:00 Terminangy, [facility] K, CL, CO2, GLUCOSE, BUN, Medica l Branch CREATININE, CA) POCT GLUCOSE (AUTOMATED) 2021-12-02 13:05:00 Terminella, Pino [facility] POCT GLUCOSE (AUTOMATED) 2021-12-02 12:13:00 Terminella, Pino [facility] BASIC METABOLIC PANEL (NA, 2021-12-02 11:26:00 AlbustamiIdalmisar U [facility] K, CL, CO2, GLUCOSE, BUN, Medica l Branch CREATININE, CA) POCT GLUCOSE (AUTOMATED) 2021-12-02 11:08:00 Terminella, Pino U [facility] POCT GLUCOSE (AUTOMATED) 2021-12-02 10:13:00 Terminella, Pino U [facility] POCT GLUCOSE (AUTOMATED) 2021-12-02 09:12:00 Terminella, [facility] PHOSPHORUS 2021-12-02 08:05:00 Coco [facility] ALBUMIN 2021-12-02 08:05:00 Coco [facility] MAGNESIUM 2021-12-02 08:05:00 [facility] BASIC METABOLIC PANEL (NA, 2021-12-02 08:05:00 Terminella, [facility] K, CL, CO2, GLUCOSE, BUN, Medica l Branch CREATININE, CA) INTACT PTH CALCIUM GROUP 2021-12-02 08:05:00 Twyla Sepulveda [facility] CBC WITH DIFF 2021-12-02 08:05:00 [facility] PO[facility]UCOSE (AUTOMATED) 2021-12-02 08:05:00 Terminella, Pino U [facility] POCT GLUCOSE (AUTOMATED) 2021-12-02 07:10:00 Terminella, Pino U [facility] POCT GLUCOSE (AUTOMATED) 2021-12-02 05:54:00 Terminella, Pino U [facility] TRANSFUSE PLATELETS 2021-12-02 05:31:00 [facility] BASIC METABOLIC PANEL (NA, 2021-12-02 05:15:00 [facility], CO2, GLUCOSE, BUN, Medica l Branch CREATININE, CA) POCT GLUCOSE (AUTOMATED) 2021-12-02 05:13:00 Terminella, Pino U [facility] PREPARE PLATELETS 2021-12-02 04:51:39 Norm Becerra [facility] POCT GLUCOSE (AUTOMATED) 2021-12-02 03:57:00 Terminella, Pino [facility] POCT GLUCOSE (AUTOMATED) 2021-12-02 03:07:00 Terminella, [facility] BASIC METABOLIC PANEL (NA, 2021-12-02 02:23:00 Terminella, [facility] K, CL, CO2, GLUCOSE, BUN, Medica l Branch CREATININE, CA) POCT GLUCOSE (AUTOMATED) 2021-12-02 02:16:00 Terminella, Pino [facility] POCT GLUCOSE (AUTOMATED) 2021-12-02 01:04:00 Terminella, [facility] ABORH CONFIRMATION (LAB 2021-12-02 00:40:00 Norm Becerra [facility] ONLY) Medical Branch POCT GLUCOSE (AUTOMATED) 2021-12-02 00:04:00 Terminella, Pino U [facility] BASIC METABOLIC PANEL (NA, 2021-12-01 23:41:00 Terminella, [facility] K, CL, CO2, GLUCOSE, BUN, Medica l Branch CREATININE, CA) ANTIGEN TYPING PATIENT 2021-12-01 23:40:00 Harjeet Burleson [facility] HB ABO GROUPING 2021-12-01 23:40:00 Norm Becerra [facility] POCT GLUCOSE (AUTOMATED) 2021-12-01 23:01:00 Terminella, Pino U [facility] POCT GLUCOSE (AUTOMATED) 2021-12-01 22:05:00 Terminella, Pino U [facility] PROTEIN CREAT RATIO URINE 2021-12-01 21:18:00 Twyla Sepulveda [facility] TOTAL PROTEIN, URINE 2021-12-01 21:18:00 Twyla Sepulveda [facility] UREA NITROGEN, URINE 2021-12-01 21:18:00 Twyla Sepulveda [facility] SODIUM, URINE RANDOM 2021-12-01 21:18:00 Twyla Sepulveda [facility] URINALYSIS 2021-12-01 20:22:00 [facility] MRSA / MSSA SCREEN BY PCR, 2021-12-01 20:13:00 Lauro [facility] NARES [facility] PHOSPHORUS 2021-12-01 20:12:00 Lauro [facility] MAGNESIUM 2021-12-01 20:12:00 [facility] OSMOLALITY, SERUM OR 2021-12-01 20:12:00 [facility] PLASMA [facility] BETA HYDROXY-BUTYRATE 2021-12-01 20:12:00 [facility] GLYCOSYLATED HEMOGLOBIN 2021-12-01 20:12:00 [facility] HEPATITIS B SURFACE 2021-12-01 20:12:00 Norm Becerra [facility] HIV 1/2 AG-AB WITH REFLEX 2021-12-01 20:12:00 Faisal Hebert [facility] POCT GLUCOSE (AUTOMATED) 2021-12-01 19:28:00 Pino Restrepo [facility] LACTATE DEHYDROGENASE 2021-12-01 18:43:00 Norm Becerra [facility] HAPTOGLOBIN, SERUM 2021-12-01 18:43:00 [facility] C-REACTIVE PROTEIN 2021-12-01 18:43:00 Pino Restrepo [facility] TOTAL IRON BINDING 2021-12-01 18:43:00 Norm Becerra [facility] BASIC METABOLIC PANEL (NA, 2021-12-01 18:43:00 Colt Diaz [facility] K, CL, CO2, GLUCOSE, BUN, Medica l Branch CREATININE, CA) IRON PANEL 2021-12-01 18:43:00 Twyla Sepulveda o f [facility] HEPATITIS B SURFACE 2021-12-01 18:43:00 Norm Becerra [facility] ANTIBODY [facility] HCV ANTIBODY 2021-12-01 18:43:00 Faisal Hebert [facility] HBC ANTIBODY (IGM & IGG) 2021-12-01 18:43:00 Faisal Hebert [facility] ACUTE CARE ARTERIAL BLOOD 2021-12-01 17:31:00 Colt Diaz [facility] GAS [facility] POCT GLUCOSE (AUTOMATED) 2021-12-01 16:33:00 Ayesha Bateman [facility] XR CHEST 1 VW 2021-12-01 16:07:03 Colt Diaz [facility] URIC ACID 2021-12-01 15:25:00 Faisal Hebert [facility] FERRITIN SERUM 2021-12-01 15:25:00 Faisal [place], [facility] VITAMIN B12, LEVEL 2021-12-01 15:25:00 Faisal Hebert [facility] BETA HYDROXY-BUTYRATE 2021-12-01 15:25:00 Colt Diaz [facility] HEPATIC FUNCTION PANEL 2021-12-01 15:25:00 Josette BecerraFormerly [facility] ([id number]) (ALB,T.PRO,BILI Medical Branch T,BU/BC,ALT,AST,ALK PHOS) BASIC METABOLIC PANEL (NA, 2021-12-01 14:19:00 Colt Diaz [facility] K, CL, CO2, GLUCOSE, BUN, Medica l Branch CREATININE, CA) POCT GLUCOSE (AUTOMATED) 2021-12-01 12:57:00 Ayesha Bateman [facility] URINALYSIS 2021-12-01 11:17:00 Ayesha Bateman [facility] BLOOD CULTURE SCREEN 2021-12-01 11:07:00 Ayesha Bateman [facility] BLOOD CULTURE SCREEN 2021-12-01 11:00:00 Ayesha Bateman [facility] CBC WITHOUT DIFF 2021-12-01 10:59:00 Ayesha Bateman [facility] GLYCOSYLATED HEMOGLOBIN 2021-12-01 10:59:00 Colt Diaz [facility] (A1C) Medical Branch PROTHROMBIN TIME / INR 2021-12-01 10:59:00 Ayo Dickerson [facility] ACTIVATED PARTIAL THRMPLAS 2021-12-01 10:59:00 Keli Dickerson [facility] TRIXIE [facility] RETICULOCYTES AUTOMATED 2021-12-01 10:59:00 Norm Becerra [facility] RAPID STREP SCREEN FOR 2021-11-29 15:00:00 Catarina Marcus [facility] GROUP A Medical Branch CONSENT/REFUSAL FOR 2021-11-29 14:13:09 Doctor Dimitrios [facility] DIAGNOSIS AND TREATMENT [facility] NOTICE OF PRIVACY 2021-11-10 05:41:29 Doctor Dimitrios, [facility] PRACTICES [facility] CONSENT/REFUSAL FOR 2021-11-10 05:35:53 Doctor Plunkett [facility] DIAGNOSIS AND TREATMENT [facility] CONSENT/REFUSAL FOR 2021-09-03 18:13:12 Doctor Plunkett [facility] DIAGNOSIS AND TREATMENT [facility] ASSIGNMENT OF BENEFITS 2021-09-03 18:12:54 Doctor Plunkett [facility] EXTERNAL PROVIDER RECORDS 2021-07-29 06:01:00 Doctor Plunkett [facility] [place] [facility] COMPREHENSIVE METABOLIC 2021-07-12 20:05:00 Bhanu Mariee [facility] PANEL URIC ACID 2021-07-12 20:05:00 Bhanu Mariee [facility] CBC AND DIFFERENTIAL 2021-07-12 20:05:00 [place]han[place] Mariee [place] [facility] CONS[place]REFUS[place] FOR 2021-06-12 13:16:46 Doctor Plunkett [facility] DIAGNOSIS AND TREATMENT [facility] PATIENT FINANCIAL 2021-02-05 16:00:55 Doctor Plunkett [facility] POLICY [facility] NO SHOW OR MISSED 2021-02-05 16:00:22 Doctor Unassigned, [facility] APPOINTMENT POLICY [place] [facility] ACKNOWLEDGEMENT NOTICE OF PRIVACY 2021-02-05 15:59:57 Doctor Unassigned, [facility] PRACTICES [facility] CONSENT/REFUSAL FOR 2021-02-05 15:59:37 Doctor Unassigned, [facility] DIAGNOSIS AND TREATMENT [facility] ASSIGNMENT OF BENEFITS 2021-02-05 15:59:15 Doctor Unassigned, [facility] Encounters Start End Encounter Admission Attending Care Care Encounter Source Date/Time Date/Time Type Type Clinicians Facility Department ID 2021-12-30 Outpatient ASSASSI, [facility] [id number] [place] 09:54:49 BHANU [facility] 2021-12-24 Outpatient ASSASSI, [facility] [id number] [place] 03:29:52 BHANU [facility] 2021-12-23 Outpatient [facility] [id number] [place] 13:05:09 [facility] 2021-10-14 Outpatient ASSASSI, [facility] [id number] [place] 03:41:27 BHANU [facility] 2021-10-13 Outpatient [facility] [id number] [place] 09:19:52 [facility] 2021-09-10 Outpatient [facility] [id number] [place] 10:40:11 [facility] 2021-09-09 Outpatient ASSASSI, [facility] [id number] [place] 10:35:40 BHANU [facility] 2021-07-07 Outpatient ASSASSI, [facility] [id number] [place] 13:17:48 BHANU [facility] 2022-01-02 2022-01-02 Telephone José, UTP 6410 [id number] [place] 00:00:00 00:00:[address] [id number] Health [id number] 2021-12-31 2021-12-31 Telephone Tito, [facility] 6410 [id number] [place] 00:00:00 00:00:[address] [id number] Health [id number] 2021-12-31 2021-12-31 Orders Doctor KEKE [id number] Univers 00:00:00 00:00:00 Only Unassigned, JOE [id number] ity of [place] [facility] [id number] Armin as [id number] [facility] 009 Branch 2021-12-16 2021-12-16 Telephone [facility] [id number] Univers 00:00:00 00:00:00 [facility] MULTISPEC [id number] [id number] [id number] [address] DIABETES CLINIC 2021-12-16 2021-12-16 Transition Nesscody ARIAEdilma [id number] Univers 00:00:00 00:00:00 of Care Oksana VELASQUEZ [id number] i [id number] [id number] [facility] 403 Branch 2021-12-16 2021-12-16 Telephone [facility] [id number] Univers 00:00:00 00:00:00 [facility] MULTISPEC [id number] [id number] [id number] [address] DIABETES CLINIC 2021-12-01 2021-12-15 Inpatient [facility] [id number] Univers 04:26:00 14:53:00 OTTO ity of [facility] 2021-12-01 2021-12-15 Hospital Erika Dickerson [facility] [id number] .[id number] Univers 04:26:00 14:53:00 Encounter Colt Diaz [facility] [id number] ity of Pino Restrepo [id number] [facility] [id number] [address] ([facility]) 2021-11-29 2021-11-29 Emergency [facility] [id number] Univers 09:18:00 10:44:00 CATARINA itандрей [facility] 2021-11-29 2021-11-29 Emergency [facility] [id number] Univers 09:18:00 10:44:00 Catarina BLACKMAN [id number] ity [facility] [id number] [facility] [id number] [address] 2021-11-10 2021-11-10 Emergency X Lexy MARTINEZ [facility] ERT [id number] Univers 01:12:00 02:40:00 ity [facility] 2021-11-10 2021-11-10 Emergency Lexy Martinez [facility] [id number] Univers 01:12:00 02:40:00 Rhiannon BLACKMAN [id number] i ty [facility] [id number] [facility] [id number] [address] 2021-10-19 2021-10-19 [facility] [id number] Univers 09:00:00 09:00:00 TEJO [id number] [facility] 2021-09-09 2021-09-09 Office Thomasjavi, [place] 6410 [id number] [place] 11:00:00 11:50:14 Visit Bhanu OREILLY [id number] [facility] [id number] 2021-09-03 2021-09-03 Outpatient R [facility] [id number] Univers 13:13:04 23:59:00 zac LOAIZA [facility] 2021-09-03 2021-09-03 [facility] [id number] Univers 13:00:00 23:59:00 Encounter HIRAL Loaiza [id number] kirill [facility] EMERITA [id number] [facility] [id number] [facility] 806 Branch 2021-09-03 2021-09-03 Outpatient R [facility] [id number] Univers 00:00:00 00:00:00 LENARD, [id number] ity [facility] 2021-08-23 2021-08-23 Outpatient R [facility] [id number] Univers 18:00:00 18:00:00 LENARD, [id number] ity [facility] 2021-07-29 2021-07-29 Orders Doctor KEKE [id number] [id number] Univers 00:00:00 00:00:00 Only Unassigned, JOE [id number] [place] [facility] [id number] Armin as [id number] [facility] 009 Branch 2021-07-15 2021-07-15 Telephone [place] Cross 6410 1.2.840.114 1 [id number] [place] 00:00:00 00:00:[address] 350.1.13.58 Health 9.2.7.2.686 [id number] 3 2021-07-12 2021-07-12 Office RICHMOND Mariee 6410 1.2.351.268 [id number] [place] 13:00:00 13:46:[address] 350.1.13.58 Health 9.2.7.2.686 [id number] 9 2021-06-30 2021-06-30 Telephone Suze Cramer UTP 6410 1.2.840. 114 [id number] [place] 00:00:00 00:00:[address] 350.1.13.58 Health 9.2.7.2.686 [id number] 9 2021-06-28 2021-06-28 Telephone Richa Galeano UTP 6410 1.2.840.1 14 [id number] [place] 00:00:00 00:00:[address] 350.1.13.58 Health 9.2.7.2.686 [id number] 3 2021-06-12 2021-06-12 [facility] [id number] Univers 07:31:00 08:02:00 KIM [facility] 2021-06-12 2021-06-12 Emergency [facility] 1.2.330.133 [id number] Univers 07:31:00 08:02:00 Kim Janice BLACKMAN 350.1.13.10 ity [facility] 4.2.7.2.686 [facility] [id number] [facility] 0[address] [place] 2021-02-05 2021-02-05 [facility] 1.2.840.114 [id number] Univers 11:00:00 23:59:00 Encounter [facility] Hob[facility].10 [facility]686 [facility] [id number] [facility] [address] 2021-02-05 2021-02-05 Outpatient [facility] [id number] [facility] 00:00:00 00:00:00 [facility] Results Test Description Test Time Test Comments Results Result Comments Source POCT GLUCOSE (AUTOMATED) 2021-12-15 16:49:50 Test Item Value Reference Range Interpretation Comme nts POCT GLU (test code = 4822249646) 134 mg/dL 70-110 H Lab Interpretation (test code = 50121-2) [facility]2021-[facility]-15 13:01:11 Test Item Value Reference Range Interpretation Comments POCT GLU (test code = 0226124319) 172 mg/dL 70-110 H Lab Interpretation (test code = Abnormal 13937-6) [facility]OL[facility] PAN[facility] (26169)2021-12-15 10:13:04 Test Item Value Reference Range Interpretation Comments NA (test code = 134 mmol/L 135-145 L 5174327844) K (test code = 3.5 mmol/L 3.5-5.0 8345613181) CL (test code = 109 mmol/L 98-108 H 9303173082) CO2 TOTAL (test code = 18 mmol/L 23-31 L 2834415608) AGAP (test code = 2-16 2731612940) BUN (test code = 48 mg/dL 7-23 H 0063608517) GLUCOSE (test code = 183 mg/dL 70-110 H 6659259562) CREATININE (test code = 1.95 mg/dL 0.50-1.04 H 7808753277) TOTAL BILI (test code = 0.5 mg/dL 0.1-1.8 7059156873) CALCIUM (test code = 5.8 mg/dL 8.6-10.6 LL 0588030982) T PROTEIN (test code = 6.0 g/dL 6.3-8.2 L 8361981799) ALBUMIN (test code = 2.0 g/dL 3.5-5.0 L 6129919959) ALK PHOS (test code = 263 U/L 34-122 H 7586485016) ALTv (test code = 18 U/L 5-35 1742-6) AST(SGOT) (test code = 20 U/L 13-40 0211033629) eGFR (test code = mL/min/1.73m2 1922407274) FINA (test code = FINA) Association of Glomerular Filtration Rate (GFR) and Staging of Kidney Disease* + --+ --+ ------+| GFR (mL/min/1.73 m2) ?| With Kidney Damage ?| ?Without Kidney Damage+ --------+ --------+ +| ?>90 ?| ?Stage one ?| ? Normal ?+ ---+ ---+ -------+| ?60-89 ?| ?Stage two ?| ? Decreased GFR ? + --+ --+ ------+| ?30-59 ?| ?Stage three ?| ? Stage three ? + --+ --+ ------+| ?15-29 ?| ?Stage four ? | ? Stage four ?+ ---+ ---+ -------+| ?<15 (or dialysis) ? ?| ?Stage five ? | ? Stage five ?+ ---+ ---+ -------+ *Each stage assumes the associated GFR level has been in effect for at least three months. ?Stages 1 to 5, with or without kidney disease, indicate chronic kidney disease. Notes: Determination of stages one and two (with eGFR >59mL/min/1.73 m2) requires estimation of kidney damage for at least three months as defined by structural or functional abnormalities of the kidney, manifested by either:Pathological abnormalities or Markers of kidney damage (including abnormalities in the composition of the blood or urine or abnormalities in imaging tests). Lab Interpretation Abnormal (test code = 75366-8) [facility] GLUCOSE (AUTOMATED)2021-12-15 01:37:21 Test Item Value Reference Range Interpretation Comments POCT GLU (test code = 4350036618) 255 mg/dL 70-110 H Lab Interpretation (test code = Abnormal 81933-9) [facility] GLUCOSE (AUTOMATED)2021-12-14 22:08:00 Test Item Value Reference Range Interpretation Comments POCT GLU (test code = 8000303969) 225 mg/dL 70-110 H Lab Interpretation (test code = Abnormal 73012-4) [facility] GLUCOSE (AUTOMATED)2021-12-14 17:14:50 Test Item Value Reference Range Interpretation Comments POCT GLU (test code = 0734108133) 209 mg/dL 70-110 H Lab Interpretation (test code = Abnormal 85071-4) [facility] CenterELUTION [id number] 14:42:37 Test Item Value Reference Range Interpretation Comments ELUTION ID (test code Anti-Jka Perfor med at [facility] = 5160) Laboratory Serv [facility] s [address]Wzmp Free: [phone] A No. [id number] [facility] MONOSPECIFIC C3 [id number] 14:03:32 Test Item Value Reference Range Interpretation Comments ZACHARY C3 (test code Weak Positive Performed at [facility] = 1421) Laboratory Serv [facility] s [address]Xzlb Free: [phone] A No. [id number] [facility] MONOSPECIFIC IGG [id number] 13:47:45 Test Item Value Reference Range Interpretation Comments ZACHARY IGG (test code Positive 2+ Performed at [facility] = 1422) Laboratory Serv [facility] s [address]Suke Free: [phone] A No. [id number] [facility] CenterDA POLYSPECIFIC [id number] 13:47:15 Test Item Value Reference Range Interpretation Comments ZACHARY POLY (test Weak Positive Performed at [facility] code = 1610) Laboratory Serv [facility] Blood [facility]3 [address] [facility] [address]Iqku Free: [phone] A No. [id number] [facility] CenterPANEL [id number] 13:19:38 ANTIBODY IDAnti-JkaUndetermined Spec Comment: Performed at [facility] Laboratory Services - [facility] Blood [address] [place], [place] [address]Bgln Free: [phone] No. [id number] [facility]UnMethod[facility] CenterPOVT GLUCOSE (AUTOMATED)2021-12-14 12:43:10 Test Item Value Reference Range Interpretation Comments POCT GLU (test code = 1512135417) 185 mg/dL 70-110 H Lab Interpretation (test code = Abnormal 59374-3) [facility]. METABOLIC PANEL (83822)2021-12-14 09:53:35 Test Item Value Reference Range Interpretation Comments NA (test code = 132 mmol/L 135-145 L 6015052810) K (test code = 3.8 mmol/L 3.5-5.0 9220305942) CL (test code = 110 mmol/L 98-108 H 7272870477) CO2 TOTAL (test code = 16 mmol/L 23-31 L 0666324343) AGAP (test code = 2-16 7755080085) BUN (test code = 50 mg/dL 7-23 H 4257189999) GLUCOSE (test code = 210 mg/dL 70-110 H 7069750701) CREATININE (test code = 2.17 mg/dL 0.50-1.04 H 6852353708) TOTAL BILI (test code = 0.7 mg/dL 0.1-1.2 4778246440) CALCIUM (test code = 5.7 mg/dL 8.6-10.6 LL 6351509715) T PROTEIN (test code = 5.7 g/dL 6.3-8.2 L 0293126353) ALBUMIN (test code = 1.9 g/dL 3.5-5.0 L 5950362856) ALK PHOS (test code = 315 U/L 34-122 H 0686728659) ALTv (test code = 22 U/L 5-35 1742-6) AST(SGOT) (test code = 38 U/L 13-40 5406118125) eGFR (test code = mL/min/1.73m2 4201973456) FINA (test code = FINA) Association of Glomerular Filtration Rate (GFR) and Staging of Kidney Disease* + --+ --+ ------+| GFR (mL/min/1.73 m2) ?| With Kidney Damage ?| ?Without Kidney Damage+ --------+ --------+ +| ?>90 ?| ?Stage one ?| ? Normal ?+ ---+ ---+ -------+| ?60-89 ?| ?Stage two ?| ? Decreased GFR ? + --+ --+ ------+| ?30-59 ?| ?Stage three ?| ? Stage three ? + --+ --+ ------+| ?15-29 ?| ?Stage four ? | ? Stage four ?+ ---+ ---+ -------+| ?<15 (or dialysis) ? ?| ?Stage five ? | ? Stage five ?+ ---+ ---+ -------+ *Each stage assumes the associated GFR level has been in effect for at least three months. ?Stages 1 to 5, with or without kidney disease, indicate chronic kidney disease. Notes: Determination of stages one and two (with eGFR >59mL/min/1.73 m2) requires estimation of kidney damage for at least three months as defined by structural or functional abnormalities of the kidney, manifested by either:Pathological abnormalities or Markers of kidney damage (including abnormalities in the composition of the blood or urine or abnormalities in imaging tests). Lab Interpretation Abnormal (test code = 19768-6) [facility] WITH [id number] 05:21:58 Test Item Value Reference Range Interpretation Comments WBC (test code = See_Comment [Automated 7790-2) message] The sy stem which generated this result transmitted reference range : 4.30 - 11.10 10*3/?L. The reference range was not used to interpret this result as normal/abnormal . RBC (test code = See_Comment L [Automated 789-8) message] The sy stem which generated this result transmitted reference range : 3.93 - 5.25 10*6/?L. The reference range was not used to interpret this result as normal/abnormal . HGB (test code = 7.2 g/dL 11.6-15.0 L 718-7) HCT (test code = 21.0 % 35.7-45.2 L 4544-3) MCV (test code = 87.1 fL 80.6-95.5 787-2) MCH (test code = 29.9 pg 25.9-32.8 785-6) MCHC (test code = 34.3 g/dL 31.6-35.1 786-4) RDW-SD (test code = 48.4 fL 39.0-49.9 69036-0) RDW-CV (test code = 15.1 % 12.0-15.5 788-0) PLT (test code = See_Comment L [Automated 777-3) message] The sy stem which generated this result transmitted reference range : 166 - 358 10*3/ ?L. The reference r willem was not used to interpret this result as normal/abnormal . MPV (test code = 14.0 fL 9.5-12.9 H 28063-9) IPF % (test code = 13.3 % 1.3-7.7 H Platelet count 7560130363) measured by fluorescence method. NRBC/100 WBC (test See_Comment [Automat ed code = 1857683492) message] The system which generated this result transmitted reference range : 0.0 - 10.0 /100 WBCs. The refer ence range was not u sed to interpret th is result as normal/abnormal . NRBC x10^3 (test code See_Comment [Auto mated = 6589634096) message] The s ystem which generated this result transmitted reference range : 10*3/?L. The reference range was not used to interpret this result as normal/abnormal . GRAN MAT (NEUT) % 61.2 % (test code = 770-8) IMM GRAN % (test code 19.10 % = 3885362413) LYMPH % (test code = 9.4 % 736-9) MONO % (test code = 9.9 % 5905-5) EOS % (test code = 0.3 % 713-8) BASO % (test code = 0.1 % 706-2) GRAN MAT x10^3(ANC) 4.75 10*3/uL 1.88-7.09 (test code = 6306883491) IMM GRAN x10^3 (test 1.48 10*3/uL 0.00-0.06 H code = 0367772305) LYMPH x10^3 (test code 0.73 10*3/uL 1.32-3.29 L = 731-0) MONO x10^3 (test code 0.77 10*3/uL 0.33-0.92 = 742-7) EOS x10^3 (test code = <0.03 0.03-0.39 L 711-2) BASO x10^3 (test code <0.03 0.01-0.07 = 704-7) BANDS (test code = Increased A 1412067218) TOXIC CHANGES (test Present A code = 803-7) Lab Interpretation Abnormal (test code = 73678-8) [facility] CenterType and Screen - ONCE [id number] 05:06:37 Test Item Value Reference Range Interpretation Comments ABO & RH (test O Positive Performed at [facility] code = 20) Laboratory Serv ices - [facility] Blood [address] [place], [place] [address]Zshs Free: [phone] A No. [id number] IAT (test code = Positive Pos AbScree n previously 1185) called to Physi denton this admit. JCPerfor med at [facility] Laboratory Services - [facility] Blood [address] [place], [place] [address]Mpfa Free: [phone] A No. [id number] [facility] CenterPO[facility])2021-12-14 01:36:17 Test Item Value Reference Range Interpretation Comments POCT GLU (test code = 9060703249) 182 mg/dL 70-110 H Lab Interpretation (test code = Abnormal 87569-2) [facility] CULTURE [id number] 23:01:25 Test Item Value Reference Range Interpretation Comments Blood Culture-Aerobic No organisms No growth Previo us (test code = 83416-4) isolated prelim inary verified result was Culture In Progress on 12/08/2021 at 21 01 CDTPrevious preliminary verified result was No growth a t 24 hours on 12/09/2021 at 18 01 CDTPrevious preliminary verified result was No growth a t 48 hours on 12/10/2021 at 180 1 CDTPrevious preliminary verified result was No growth a t 72 hours on 12/11/2021 at 180 1 CDT Blood No organisms No growth Previous Culture-Anaerobic isolated preliminar y (test code = 04979-3) verifi ed result was Culture In Progress on 12/08/2021 at 21 01 CDTPrevious preliminary verified result was No growth a t 24 hours on 12/09/2021 at 18 01 CDTPrevious preliminary verified result was No growth a t 48 hours on 12/10/2021 at 180 1 CDTPrevious preliminary verified result was No growth a t 72 hours on 12/11/2021 at 180 1 CDT Lab Interpretation Normal (test code = 05077-3) [facility] CULTURE [id number] 23:01:25 Test Item Value Reference Range Interpretation Comments Blood Culture-Aerobic No organisms No growth Previo us (test code = 61041-6) isolated prelim inary verified result was Culture In Progress on 12/08/2021 at 21 01 CDTPrevious preliminary verified result was No growth a t 24 hours on 12/09/2021 at 18 01 CDTPrevious preliminary verified result was No growth a t 48 hours on 12/10/2021 at 180 1 CDTPrevious preliminary verified result was No growth a t 72 hours on 12/11/2021 at 180 1 CDT Blood No organisms No growth Previous Culture-Anaerobic isolated preliminar y (test code = 90458-9) verifi ed result was Culture In Progress on 12/08/2021 at 21 01 CDTPrevious preliminary verified result was No growth a t 24 hours on 12/09/2021 at 18 01 CDTPrevious preliminary verified result was No growth a t 48 hours on 12/10/2021 at 180 1 CDTPrevious preliminary verified result was No growth a t 72 hours on 12/11/2021 at 180 1 CDT Lab Interpretation Normal (test code = 92652-3) [facility] GLUCOSE (AUTOMATED)2021-12-13 22:01:38 Test Item Value Reference Range Interpretation Comments POCT GLU (test code = 9833681439) 231 mg/dL 70-110 H Lab Interpretation (test code = Abnormal 73122-9) [facility] CenterN-TERMINAL [id number] 19:25:08 Test Item Value Reference Range Interpretation Comments NT-proBNP (test code 56807 pg/mL See_Comment H [Autom ated = 7802168921) message] The system which generated this result transmitted reference range : <=125. The reference range was not used to interpret this result as normal/abnormal . FINA (test code = FINA) Biotin has been reported to cause a negative bias, interpret results relative to patient's use of biotin. Lab Interpretation Abnormal (test code = 05848-6) [facility] GLUCOSE (AUTOMATED)2021-12-13 17:23:38 Test Item Value Reference Range Interpretation Comments POCT GLU (test code = 1614405269) 168 mg/dL 70-110 H Lab Interpretation (test code = Abnormal 37152-4) [facility] CenterANTIGEN TYPING [id number] 14:23:12 Test Item Value Reference Range Interpretation Comments ANTIGEN ID (test Jka Antigen Pre-Sample drawn code = 5072) Negative 2[facility] Blood [address] [address]Geep Free: [phone] A No. [id number] [facility] GLUCOSE (AUTOMATED)2021-12-13 12:48:49 Test Item Value Reference Range Interpretation Comments POCT GLU (test code = 6484033458) 116 mg/dL 70-110 H Lab Interpretation (test code = Abnormal 96721-7) [facility] CenterCBC WITH [id number] 10:28:40 Test Item Value Reference Range Interpretation Comments WBC (test code = See_Comment [Automated 6690-2) message] The sy stem which generated this result transmitted reference range : 4.30 - 11.10 10*3/?L. The reference range was not used to interpret this result as normal/abnormal . RBC (test code = See_Comment L [Automated 789-8) message] The sy stem which generated this result transmitted reference range : 3.93 - 5.25 10*6/?L. The reference range was not used to interpret this result as normal/abnormal . HGB (test code = 7.3 g/dL 11.6-15.0 L 718-7) HCT (test code = 21.0 % 35.7-45.2 L 4544-3) MCV (test code = 87.9 fL 80.6-95.5 787-2) MCH (test code = 30.5 pg 25.9-32.8 785-6) MCHC (test code = 34.8 g/dL 31.6-35.1 786-4) RDW-SD (test code = 48.9 fL 39.0-49.9 61299-2) RDW-CV (test code = 15.1 % 12.0-15.5 788-0) PLT (test code = See_Comment L [Automated 777-3) message] The sy stem which generated this result transmitted reference range : 166 - 358 10*3/ ?L. The reference r willem was not used to interpret this result as normal/abnormal . MPV (test code = 13.5 fL 9.5-12.9 H 59531-6) IPF % (test code = 10.4 % 1.3-7.7 H Platelet count 8679541119) measured by fluorescence method. NRBC/100 WBC (test See_Comment [Automat ed code = 9851095992) message] The system which generated this result transmitted reference range : 0.0 - 10.0 /100 WBCs. The refer ence range was not u sed to interpret th is result as normal/abnormal . NRBC x10^3 (test code See_Comment [Auto mated = 7324765761) message] The s ystem which generated this result transmitted reference range : 10*3/?L. The reference range was not used to interpret this result as normal/abnormal . SEG % (test code = 70 % 33-76 91691-9) BAND % (test code = 11 % 0-1 H 80001-1) META % (test code = 6 % See_Comment H [Automa allison 13280-2) message] The sy stem which generated this result transmitted reference range : <=0. The refere nce range was not u sed to interpret th is result as normal/abnormal . MYELO % (test code = 4 % See_Comment H [Autom ated 03013-0) message] The sy stem which generated this result transmitted reference range : <=0. The refere nce range was not u sed to interpret th is result as normal/abnormal . PROMYELO % (test code 2 % See_Comment H [Auto mated = 76223-4) message] The sy stem which generated this result transmitted reference range : <=0. The refere nce range was not u sed to interpret th is result as normal/abnormal . LYMPH % (test code = 2 % 14-54 L 80802-7) MONO % (test code = 3 % 0-4 51903-1) EOS % (test code = 2 % 0-3 68654-2) ANC (test code = 6.16 10*3/uL 1.88-7.09 753-4) Lab Interpretation Abnormal (test code = 47919-7) [facility] (NA, K, CL, CO2, GLUCOSE, BUN, CREATININE, CA)2021-12-13 09:46:38 Test Item Value Reference Range Interpretation Comments NA (test code = 132 mmol/L 135-145 L 9683696301) K (test code = 3.7 mmol/L 3.5-5.0 9926219027) CL (test code = 110 mmol/L 98-108 H 8858823760) CO2 TOTAL (test code = 15 mmol/L 23-31 L 6599224705) AGAP (test code = 2-16 0126133303) BUN (test code = 51 mg/dL 7-23 H 9316946059) GLUCOSE (test code = 104 mg/dL 70-110 6825703415) CREATININE (test code = 2.48 mg/dL 0.50-1.04 H 8189823881) CALCIUM (test code = 6.0 mg/dL 8.6-10.6 L 1874687218) eGFR (test code = mL/min/1.73m2 6969192992) FINA (test code = FINA) Association of Glomerular Filtration Rate (GFR) and Staging of Kidney Disease* + --+ --+ ------+| GFR (mL/min/1.73 m2) ?| With Kidney Damage ?| ?Without Kidney Damage+ --------+ --------+ +| ?>90 ?| ?Stage one ?| ? Normal ?+ ---+ ---+ -------+| ?60-89 ?| ?Stage two ?| ? Decreased GFR ? + --+ --+ ------+| ?30-59 ?| ?Stage three ?| ? Stage three ? + --+ --+ ------+| ?15-29 ?| ?Stage four ? | ? Stage four ?+ ---+ ---+ -------+| ?<15 (or dialysis) ? ?| ?Stage five ? | ? Stage five ?+ ---+ ---+ -------+ *Each stage assumes the associated GFR level has been in effect for at least three months. ?Stages 1 to 5, with or without kidney disease, indicate chronic kidney disease. Notes: Determination of stages one and two (with eGFR >59mL/min/1.73 m2) requires estimation of kidney damage for at least three months as defined by structural or functional abnormalities of the kidney, manifested by either:Pathological abnormalities or Markers of kidney damage (including abnormalities in the composition of the blood or urine or abnormalities in imaging tests). Lab Interpretation Abnormal (test code = 70151-8) [facility] GLUCOSE (AUTOMATED)2021-12-13 01:38:50 Test Item Value Reference Range Interpretation Comments POCT GLU (test code = 9096853077) 97 mg/dL 70-110 Lab Interpretation (test code = Normal 82784-1) [facility] CenterVancomycin Random [id number] 23:53:29 Test Item Value Reference Range Interpretation Comments VANCO RANDOM (test code = 16.5 ug/mL 3432496194) [facility] GLUCOSE (AUTOMATED)2021-12-12 21:59:51 Test Item Value Reference Range Interpretation Comments POCT GLU (test code = 8249885968) 144 mg/dL 70-110 H Lab Interpretation (test code = Abnormal 43781-3) [facility] GLUCOSE (AUTOMATED)2021-12-12 16:47:00 Test Item Value Reference Range Interpretation Comments POCT GLU (test code = 6279603390) 180 mg/dL 70-110 H Lab Interpretation (test code = Abnormal 17985-0) [facility] CenterMisc. Sendout- (1,3)-Bbbr-C-Yncqrt (Fungitell) 2021-12-12 16:35:51 Test Item Value Reference Range Interpretation Comments Miscellaneous Test (test See scanned report code = 9574598755) Performing Lab (test code ARUP = 7816722101) [facility] CenterIONIZED [id number] 15:58:58 Test Item Value Reference Range Interpretation Comments IONIZED CA (test code = 3.40 mg/dL 4.50-5.30 L 6608176270) PH SERUM (test code = 6865779698) 7.35-7.45 Lab Interpretation (test code = Abnormal 84551-6) [facility] GLUCOSE (AUTOMATED)2021-12-12 12:19:37 Test Item Value Reference Range Interpretation Comments POCT GLU (test code = 3432731417) 180 mg/dL 70-110 H Lab Interpretation (test code = Abnormal 94809-8) [facility] WITH [id number] 11:15:19 Test Item Value Reference Range Interpretation Comments WBC (test code = See_Comment [Automated 6690-2) message] The sy stem which generated this result transmitted reference range : 4.30 - 11.10 10*3/?L. The reference range was not used to interpret this result as normal/abnormal . RBC (test code = See_Comment L [Automated 529-8) message] The sy stem which generated this result transmitted reference range : 3.93 - 5.25 10*6/?L. The reference range was not used to interpret this result as normal/abnormal . HGB (test code = 7.3 g/dL 11.6-15.0 L 718-7) HCT (test code = 20.7 % 35.7-45.2 L 4544-3) MCV (test code = 87.0 fL 80.6-95.5 787-2) MCH (test code = 30.7 pg 25.9-32.8 785-6) MCHC (test code = 35.3 g/dL 31.6-35.1 H 786-4) RDW-SD (test code = 47.0 fL 39.0-49.9 48310-2) RDW-CV (test code = 14.8 % 12.0-15.5 788-0) PLT (test code = See_Comment L [Automated 777-3) message] The sy stem which generated this result transmitted reference range : 166 - 358 10*3/ ?L. The reference r willem was not used to interpret this result as normal/abnormal . MPV (test code = 13.0 fL 9.5-12.9 H 18078-3) IPF % (test code = 11.3 % 1.3-7.7 H Platelet count 2664356008) measured by fluorescence method. NRBC/100 WBC (test See_Comment [Automat ed code = 3460180830) message] The system which generated this result transmitted reference range : 0.0 - 10.0 /100 WBCs. The refer ence range was not u sed to interpret th is result as normal/abnormal . NRBC x10^3 (test code See_Comment [Auto mated = 4578374067) message] The s ystem which generated this result transmitted reference range : 10*3/?L. The reference range was not used to interpret this result as normal/abnormal . SEG % (test code = 44 % 33-76 91464-2) BAND % (test code = 32 % 0-1 H 59424-8) META % (test code = 5 % See_Comment H [Automa allison 54613-2) message] The sy stem which generated this result transmitted reference range : <=0. The refere nce range was not u sed to interpret th is result as normal/abnormal . MYELO % (test code = 4 % See_Comment H [Autom ated 31685-6) message] The sy stem which generated this result transmitted reference range : <=0. The refere nce range was not u sed to interpret th is result as normal/abnormal . PROMYELO % (test code 2 % See_Comment H [Auto mated = 63177-3) message] The sy stem which generated this result transmitted reference range : <=0. The refere nce range was not u sed to interpret th is result as normal/abnormal . LYMPH % (test code = 6 % 14-54 L 19524-7) MONO % (test code = 6 % 0-4 H 80962-6) EOS % (test code = 1 % 0-3 79371-8) ANC (test code = 5.73 10*3/uL 1.88-7.09 753-4) Lab Interpretation Abnormal (test code = 12631-7) [facility] METABOLIC PANEL (NA, K, CL, CO2, GLUCOSE, BUN, CREATININE, CA)2021-12-12 10:17:58 Test Item Value Reference Range Interpretation Comments NA (test code = 130 mmol/L 135-145 L 8880581296) K (test code = 3.6 mmol/L 3.5-5.0 2652257553) CL (test code = 109 mmol/L 98-108 H 7730066942) CO2 TOTAL (test code = 15 mmol/L 23-31 L 3034585313) AGAP (test code = 2-16 4064774543) BUN (test code = 52 mg/dL 7-23 H 7892627170) GLUCOSE (test code = 173 mg/dL 70-110 H 3672281644) CREATININE (test code = 2.58 mg/dL 0.50-1.04 H 4069191918) CALCIUM (test code = 5.3 mg/dL 8.6-10.6 LL 5645724546) eGFR (test code = mL/min/1.73m2 5236552375) FINA (test code = FINA) Association of Glomerular Filtration Rate (GFR) and Staging of Kidney Disease* + --+ --+ ------+| GFR (mL/min/1.73 m2) ?| With Kidney Damage ?| ?Without Kidney Damage+ --------+ --------+ +| ?>90 ?| ?Stage one ?| ? Normal ?+ ---+ ---+ -------+| ?60-89 ?| ?Stage two ?| ? Decreased GFR ? + --+ --+ ------+| ?30-59 ?| ?Stage three ?| ? Stage three ? + --+ --+ ------+| ?15-29 ?| ?Stage four ? | ? Stage four ?+ ---+ ---+ -------+| ?<15 (or dialysis) ? ?| ?Stage five ? | ? Stage five ?+ ---+ ---+ -------+ *Each stage assumes the associated GFR level has been in effect for at least three months. ?Stages 1 to 5, with or without kidney disease, indicate chronic kidney disease. Notes: Determination of stages one and two (with eGFR >59mL/min/1.73 m2) requires estimation of kidney damage for at least three months as defined by structural or functional abnormalities of the kidney, manifested by either:Pathological abnormalities or Markers of kidney damage (including abnormalities in the composition of the blood or urine or abnormalities in imaging tests). Lab Interpretation Abnormal (test code = 32171-0) [facility] 10:08:53 Test Item Value Reference Range Interpretation Comments MAGNESIUM (test code = 6719374603) 2.2 mg/dL 1.7-2.4 Lab Interpretation (test code = Normal 79753-1) [facility]20[facility] 10:08:53 Test Item Value Reference Range Interpretation Comments PHOSPHORUS (test code = 9627941037) 2.6 mg/dL 2.5-5.0 Lab Interpretation (test code = Normal 09797-4) [facility]2021-12-12 02:17:16 Test Item Value Reference Range Interpretation Comments POCT GLU (test code = 4958644482) 115 mg/dL 70-110 H Lab Interpretation (test code = Abnormal 74597-0) [facility] CenterCBC WITHOUT [id number] 00:08:55 Test Item Value Reference Range Interpretation Comments WBC (test code = See_Comment [Automated message] 6690-2) The system [employer] generated this result transmitted ref erence range: 4.30 - 1 1.10 10*3/?L. The reference range was not used to int erpret this result as normal/abnormal . RBC (test code = 789-8) See_Comment L [Au tomated message] The system [employer] generated this result transmitted ref erence range: 3.93 - 5 .25 10*6/?L. The reference range was not used to int erpret this result as normal/abnormal . HGB (test code = 718-7) 7.9 g/dL 11.6-15.0 L HCT (test code = 22.6 % 35.7-45.2 L 4544-3) MCH (test code = 785-6) 30.5 pg 25.9-32.8 MCV (test code = 787-2) 87.3 fL 80.6-95.5 MCHC (test code = 35.0 g/dL 31.6-35.1 786-4) PLT (test code = 777-3) See_Comment L [Au tomated message] The system [employer] generated this result transmitted ref erence range: 166 - 35 8 10*3/?L. The reference range was not used to int erpret this result as normal/abnormal . MPV (test code = 12.9 fL 9.5-12.9 43575-5) RDW-CV (test code = 14.6 % 12.0-15.5 788-0) RDW-SD (test code = 47.0 fL 39.0-49.9 40589-0) NRBC x10^3 (test code = See_Comment [Au tomated message] 5435403679) The system [employer] generated this result transmitted ref erence range: 10*3/?L. The reference range was not used to int erpret this result as normal/abnormal . NRBC/100 WBC (test code See_Comment [Au tomated message] = 6996594587) The system [employer] generated this result transmitted ref erence range: 0.0 - 10 .0 /100 WBCs. The reference range was not used to int erpret this result as normal/abnormal . IPF % (test code = 12.2 % 1.3-7.7 H Platelet count 3580707447) measured by fluorescence me thod. Lab Interpretation Abnormal (test code = 33861-5) [facility] CenterVancomycin Random [id number] 00:07:15 Test Item Value Reference Range Interpretation Comments VANCO RANDOM (test code = 21.2 ug/mL 8074282078) [facility])2021-12-11 21:57:08 Test Item Value Reference Range Interpretation Comments POCT GLU (test code = 7503878077) 132 mg/dL 70-110 H Lab Interpretation (test code = Abnormal 72989-0) [facility] CenterPrepare Packed RBC (in units)2021-12-11 17:50:14 Test Item Value Reference Range Interpretation Comments Unit Blood Type (test O Pos code = 4410) ISBT Blood Type Code (test code = 196939) Unit Number (test [id number] code = 4411) Blood Expiration Date & Time (test code = 297194) Status Information Issued (test code = 4412) Product Red Blood Cells Identification (test code = 4413) Product Code (test V4308X82 Performed at [facility] code = 4414) Laboratory Services - [facility] Blood [address] [place] [address]Hzcy Free: [phone] A No. [id number] Cross Match Result Compatible (test code = 4409) [facility]POVT GLU[facility]AUTOMATED)2021-12-11 16:30:47 Test Item Value Reference Range Interpretation Comments POCT GLU (test code = 4121074489) 127 mg/dL 70-110 H Lab Interpretation (test code = Abnormal 70078-5) [facility] CenterCB WITH [id number] 10:39:55 Test Item Value Reference Range Interpretation Comments WBC (test code = See_Comment [Automated 0469-2) message] The sy stem which generated this result transmitted reference range : 4.30 - 11.10 10*3/?L. The reference range was not used to interpret this result as normal/abnormal . RBC (test code = See_Comment L [Automated 528-8) message] The sy stem which generated this result transmitted reference range : 3.93 - 5.25 10*6/?L. The reference range was not used to interpret this result as normal/abnormal . HGB (test code = 6.2 g/dL 11.6-15.0 L 718-7) HCT (test code = 17.5 % 35.7-45.2 L 4544-3) MCV (test code = 87.9 fL 80.6-95.5 787-2) MCH (test code = 31.2 pg 25.9-32.8 785-6) MCHC (test code = 35.4 g/dL 31.6-35.1 H 786-4) RDW-SD (test code = 45.8 fL 39.0-49.9 76464-9) RDW-CV (test code = 14.3 % 12.0-15.5 788-0) PLT (test code = See_Comment L [Automated 777-3) message] The sy stem which generated this result transmitted reference range : 166 - 358 10*3/ ?L. The reference r willem was not used to interpret this result as normal/abnormal . MPV (test code = 13.5 fL 9.5-12.9 H 58946-4) IPF % (test code = 14.6 % 1.3-7.7 H Platelet count 7462946364) measured by fluorescence method. NRBC/100 WBC (test See_Comment [Automat ed code = 1798798066) message] The system which generated this result transmitted reference range : 0.0 - 10.0 /100 WBCs. The refer ence range was not u sed to interpret th is result as normal/abnormal . NRBC x10^3 (test code See_Comment [Auto mated = 8211512883) message] The s ystem which generated this result transmitted reference range : 10*3/?L. The reference range was not used to interpret this result as normal/abnormal . SEG % (test code = 61 % 33-76 61198-8) BAND % (test code = 22 % 0-1 H 06476-9) META % (test code = 5 % See_Comment H [Automa allison 22100-4) message] The sy stem which generated this result transmitted reference range : <=0. The refere nce range was not u sed to interpret th is result as normal/abnormal . MYELO % (test code = 3 % See_Comment H [Autom ated 00299-9) message] The sy stem which generated this result transmitted reference range : <=0. The refere nce range was not u sed to interpret th is result as normal/abnormal . PROMYELO % (test code 1 % See_Comment H [Auto mated = 97755-2) message] The sy stem which generated this result transmitted reference range : <=0. The refere nce range was not u sed to interpret th is result as normal/abnormal . LYMPH % (test code = 4 % 14-54 L 56222-6) MONO % (test code = 4 % 0-4 69665-5) ANC (test code = 7.46 10*3/uL 1.88-7.09 H 753-4) DOHLE BODIES (test Present A code = 7792-5) TOXIC CHANGES (test Present A code = 803-7) Lab Interpretation Abnormal (test code = 57635-1) [facility] METABOLIC PANEL (NA, K, CL, CO2, GLUCOSE, BUN, CREATININE, CA)2021-12-11 10:04:43 Test Item Value Reference Range Interpretation Comments NA (test code = 132 mmol/L 135-145 L 7735790957) K (test code = 3.8 mmol/L 3.5-5.0 6514644276) CL (test code = 109 mmol/L 98-108 H 6366029591) CO2 TOTAL (test code = 16 mmol/L 23-31 L 7526806212) AGAP (test code = 2-16 3681086929) BUN (test code = 53 mg/dL 7-23 H 0985602949) GLUCOSE (test code = 103 mg/dL 70-110 0301115721) CREATININE (test code = 2.63 mg/dL 0.50-1.04 H 3423192092) CALCIUM (test code = 5.7 mg/dL 8.6-10.6 LL 4239393079) eGFR (test code = mL/min/1.73m2 7720265032) FINA (test code = FINA) Association of Glomerular Filtration Rate (GFR) and Staging of Kidney Disease* + --+ --+ ------+| GFR (mL/min/1.73 m2) ?| With Kidney Damage ?| ?Without Kidney Damage+ --------+ --------+ +| ?>90 ?| ?Stage one ?| ? Normal ?+ ---+ ---+ -------+| ?60-89 ?| ?Stage two ?| ? Decreased GFR ? + --+ --+ ------+| ?30-59 ?| ?Stage three ?| ? Stage three ? + --+ --+ ------+| ?15-29 ?| ?Stage four ? | ? Stage four ?+ ---+ ---+ -------+| ?<15 (or dialysis) ? ?| ?Stage five ? | ? Stage five ?+ ---+ ---+ -------+ *Each stage assumes the associated GFR level has been in effect for at least three months. ?Stages 1 to 5, with or without kidney disease, indicate chronic kidney disease. Notes: Determination of stages one and two (with eGFR >59mL/min/1.73 m2) requires estimation of kidney damage for at least three months as defined by structural or functional abnormalities of the kidney, manifested by either:Pathological abnormalities or Markers of kidney damage (including abnormalities in the composition of the blood or urine or abnormalities in imaging tests). Lab Interpretation Abnormal (test code = 33301-6) [facility]2022-[facility]-02 09:57:48 Test Item Value Reference Range Interpretation Comments MAGNESIUM (test code = 9387577001) 2.3 mg/dL 1.7-2.4 Lab Interpretation (test code = Normal 86007-3) [facility] CenterTransfusion Reaction Anifuvwyasfri6585-30-39 09:35:28 Test Item Value Reference Range Interpretation Comments POST IAT (test Positive Performed at [facility] code = 2111) Laboratory [facility] Blood [address] [address]Ejyr Free: [phone] A No. [id number] PRE IAT (test Negative Performed at [facility] code = 2112) Laboratory [facility] Blood [address] [address]Hykh Free: [phone] A No. [id number] PRE ABO & RH O Positive Performed at [facility] (test code = Laboratory [facility] - 1633) [facility] Blood Bank[address] [place] [address]Gfmp Free: [phone] A No. [id number] PRE XM INT (test Incompatible [id number] 13 code = 1632) O7338Cuixabtie at [facility] Laboratory [facility] Blood [address] [address]Vuzg Free: [phone] A No. [id number] POST IGG (test Weak Positive Performed at [facility] code = 1618) Laboratory [facility] Blood [facility]3 [address] [facility] [address]Ejvu Free: [phone] A No. [id number] POST C3 (test Negative Performed at [facility] code = 1617) Laboratory [facility] Blood [facility] [address] [place] [address]Fohc Free: [phone] A No. [id number] POST XM INT (test Incompatible [id number] 913 code = 1596) W7621Hawmhutkm at [facility] Laboratory [facility] Blood [facility] [address] [place] [address]Hvkt Free: [phone] A No. [id number] [facility] CenterTRXN EKGKYP-[id number] 09:26:48 Test Item Value Reference Range Interpretation Comments CLERICAL CK AcceptableSee Units transfus ed and (test code = Comment unavailable.Per forme 542) d at [facility] Labor atory Services - [facility] Blood [address] [place], [place] [address]Yxmc Free: [phone] A No. [id number] PRE SERUM (test No Hemolysis NotedNo Perf ormed at [facility] code = 1637) Icterus Noted Laboratory Ser [facility] Blood [address] [address]Wnpk Free: [phone] A No. [id number] PRE ZACHARY (test Negative Performed at [facility] code = 1636) Laboratory [facility] Blood [address] [address]Tfey Free: [phone] A No. [id number] POST ABO & RH O Positive Performed at [facility] (test code = Laboratory [facility] 1616[facility] Blood [address] [address]Zfwn Free: [phone] A No. [id number] POST ZACHARY (test Weak Positive Performed at [facility] code = 1619) Laboratory [facility] Blood Ban [address] [place] [address]Kjrh Free: [phone] A No. [id number] POST SERUM No Hemolysis NotedNo Perform ed at [facility] (test code = Icterus Noted Laboratory Ser vices 1620) - [facility] Blood [facility] k[address] [facility] s [address]Enpf Free: [phone] A No. [id number] PRELIM RESULT Positive TxRxn Positive: Ex tended (test code = investigation i n 3962) process; Blood Bank physician interpretation to follow.Performe d at [facility] Laboratory Services [place] [address]15[address]Toll Free: [phone] A No. [id number] PRODUCT (test RBC- See comment [id number] 077 E0332, code = 2110) [id number] E 0332, [id number] P3046Wiwzegfny at [facility] Laboratory Services [facility] Blood [place] [address]Toll Free: [phone] A No. [id number] [facility] UBSNAQVBMJDIKB8460-88-20 07:40:49 ANTIBODY IDAnti-JkaUndetermined Spec Comment: Performed at [facility] Laboratory [place] [address]Toll Free: [phone] No. [id number] [facility] SHMSGPEFOWOVQV3476-38-17 07:40:47 Test Item Value Reference Range Interpretation Comments ELUTION ID (test code Negative Eluate nonreactive with = 5160) all cells tested.Performe d at [facility] Laboratory Serv [facility] Blood [facility]3 [address] [facility] s [address]Bvot Free: [phone] A No. [id number] [facility] GLUCOSE (AUTOMATED)2021-12-11 01:44:40 Test Item Value Reference Range Interpretation Comments POCT GLU (test code = 4538447807) 165 mg/dL 70-110 H Lab Interpretation (test code = Abnormal 49833-8) [facility]PO[facility])2021-12-10 23:49:31 Test Item Value Reference Range Interpretation Comments POCT GLU (test code = 6897355730) 221 mg/dL 70-110 H Lab Interpretation (test code = Abnormal 99640-5) [facility] CenterType and Screen - ONCE Cdsleoe6397-00-05 22:55:36 Test Item Value Reference Range Interpretation Comments ABO & RH (test code O Positive Performe d at [facility] = 20) Laboratory Serv [facility] Blood Bank[address] [place] [address]Tmpg Free: [phone] A No. [id number] IAT (test code = Positive Performed a t [facility] 1185) Laboratory Serv [facility] Blood [address] [place] [address]Orbe Free: [phone] A No. [id number] [facility] CenterTHYROID STIMULATING [id number] 21:54:55 Test Item Value Reference Range Interpretation Comments TSH (test code = See_Comment [Automated message] 9205143346) The system whic h generated this result transmitted ref erence range: 0.45 - 4 .70 mIU/L. The refe rence range was not u sed to interpret this result as normal/abnor mal. Lab Interpretation (test Normal code = 62651-8) [facility] CenterCB WITH [id number] 21:31:03 Test Item Value Reference Range Interpretation Comments WBC (test code = See_Comment [Automated 8990-2) message] The system which generated this result transmit allison reference range : 4.30 - 11.10 10*3/?L. The reference range was not used to interpret this result as normal/abnormal . RBC (test code = See_Comment L [Automated 569-8) message] The system which generated this result transmit allison reference range : 3.93 - 5.25 10*6/?L. The reference range was not used to interpret this result as normal/abnormal . HGB (test code = 6.7 g/dL 11.6-15.0 L 718-7) HCT (test code = 18.8 % 35.7-45.2 L 4544-3) MCV (test code = 86.2 fL 80.6-95.5 787-2) MCH (test code = 30.7 pg 25.9-32.8 785-6) MCHC (test code = 35.6 g/dL 31.6-35.1 H 786-4) RDW-SD (test code = 45.0 fL 39.0-49.9 42128-8) RDW-CV (test code = 14.4 % 12.0-15.5 788-0) PLT (test code = See_Comment L [Automated 777-3) message] The system which generated this result transmit allison reference range : 166 - 358 10*3/ ?L. The reference range was not u sed to interpret th is result as normal/abnormal . MPV (test code = 14.5 fL 9.5-12.9 H 52287-4) IPF % (test code = 14.1 % 1.3-7.7 H Platelet count [id number]) measured by fluorescence method. NRBC/100 WBC (test See_Comment [Automat ed code = 7843661575) message] The system which generated this result transmit allison reference range : 0.0 - 10.0 /100 WBCs. The reference range was not used to interpret this result as normal/abnormal . NRBC x10^3 (test code See_Comment [Auto mated = 5448741295) message] The system which generated this result transmit allison reference range : 10*3/?L. The reference range was not used to interpret this result as normal/abnormal . SEG % (test code = 50 % 33-76 73291-4) BAND % (test code = 26 % 0-1 H 51533-0) META % (test code = 4 % See_Comment H [Automa allison 41152-5) message] The system which generated this result transmit allison reference range : <=0. The refere nce range was not u sed to interpret th is result as normal/abnormal . MYELO % (test code = 4 % See_Comment H [Autom ated 51246-0) message] The system which generated this result transmit allison reference range : <=0. The refere nce range was not u sed to interpret th is result as normal/abnormal . PROMYELO % (test code 2 % See_Comment H [Auto mated = 66789-2) message] The system which generated this result transmit allison reference range : <=0. The refere nce range was not u sed to interpret th is result as normal/abnormal . LYMPH % (test code = 10 % 14-54 L 64700-4) MONO % (test code = 4 % 0-4 25090-7) EOS % (test code = 2 % 0-3 85059-4) ANC (test code = 3.86 10*3/uL 1.88-7.09 753-4) DOHLE BODIES (test Present A code = 7792-5) TOXIC CHANGES (test Present A code = 803-7) FINA (test code = FINA) Reviewed by Leonardo Costello M.D., Director of HEMATOPATHOLOGY . Lab Interpretation Abnormal (test code = 75883-1) [facility] CenterVancomycin Random Xvjik7116-54-02 21:27:29 Test Item Value Reference Range Interpretation Comments VANCO RANDOM (test code = 14.9 ug/mL 4759577118) [facility]PO[facility]SE (AUT[facility]ATED)2021-12-10 19:33:49 Test Item Value Reference Range Interpretation Comments POCT GLU (test code = 3312938873) 204 mg/dL 70-110 H Lab Interpretation (test code = Abnormal 52240-0) [facility] CenterBLOOD CULTURE [id number] 19:01:23 Test Item Value Reference Range Interpretation Comments Blood Culture-Aerobic No organisms No growth Previo us (test code = 94183-4) isolated prelim inary verified result was Culture In Progress on 12/05/2021 at 17 01 CDTPrevious preliminary verified result was No growth a t 24 hours on 12/06/2021 at 14 01 CDTPrevious preliminary verified result was No growth a t 48 hours on 12/07/2021 at 14 01 CDTPrevious preliminary verified result was No growth a t 72 hours on 12/08/2021 at 14 01 CDT Blood No organisms No growth Previous Culture-Anaerobic isolated preliminar y (test code = 81762-4) verifi ed result was Culture In Progress on 12/05/2021 at 17 01 CDTPrevious preliminary verified result was No growth a t 24 hours on 12/06/2021 at 14 01 CDTPrevious preliminary verified result was No growth a t 48 hours on 12/07/2021 at 14 01 CDTPrevious preliminary verified result was No growth a t 72 hours on 12/08/2021 at 14 01 CDT Lab Interpretation Normal (test code = 54679-5) [facility] CenterBLOOD CULTURE [id number] 19:01:23 Test Item Value Reference Range Interpretation Comments Blood Culture-Aerobic No organisms No growth Previo us (test code = 98601-5) isolated prelim inary verified result was Culture In Progress on 12/05/2021 at 17 01 CDTPrevious preliminary verified result was No growth a t 24 hours on 12/06/2021 at 14 01 CDTPrevious preliminary verified result was No growth a t 48 hours on 12/07/2021 at 14 01 CDTPrevious preliminary verified result was No growth a t 72 hours on 12/08/2021 at 14 01 CDT Blood No organisms No growth Previous Culture-Anaerobic isolated preliminar y (test code = 26471-4) verifi ed result was Culture In Progress on 12/05/2021 at 17 01 CDTPrevious preliminary verified result was No growth a t 24 hours on 12/06/2021 at 14 01 CDTPrevious preliminary verified result was No growth a t 48 hours on 12/07/2021 at 14 01 CDTPrevious preliminary verified result was No growth a t 72 hours on 12/08/2021 at 14 01 CDT Lab Interpretation Normal (test code = 34021-4) [facility] CenterHLA-ABC-DR TYPING [id number] 19:01:00 Test Item Value Reference Range Interpretation Comments TEST DATE (test 12/10/2021 code = 3076) CELL SRCE (test PB code = 3078) HLA A (test code = 3079) HLA A (test code = * 3080) HLA B (test code = 3081) HLA B (test code = 3082) HLA Bw (test code = 3083) HLA Bw (test code = 3084) HLA C (test code = 3085) HLA C (test code = 3086) COMMENTS (test code HLA Antigens were = 3093) confirmed by PCR-SSO techniques.* Only one antigen at this HLA locus was detected, possibly due to either the presence of a homozygous locus or an additional antigen not yet identified. Performed at [facility] Pathology Clinical Services Laboratories - Tissue AntigenDIRECTOR: ?MISA MARY MD, [address] [place], [place] ?[address]Afulg: [phone] No. [id number] ANALYTE SPECIFIC REAGENT STATEMENT: ?This test was developed and its performance characteristics determined by the [facility] Tissue Antigen Laboratory. ?The test has not been cleared or approved by the [place] [employer] (USFDA). ?The USFDA does not require licensing of reagents used in these tests. VERIFIED BY: ?Osmany Pinedo (electronic signature) 12/10/2021 REPORT DTE (test 12/10/2021 code = 3094) TECH (test code = SM/CA 3095) [facility] CenterANTIBODY SCREEN [id number] 18:59:00 Test Item Value Reference Range Interpretation Comments SERUM DTE (test code 12/09/2021 = 3204) CALCULATED PRA (test code = 3898) TEST TYPE (test code Single Ag = 3901) TEST DATE (test code 12/10/2021 = 3205) T-PRA (test code = -- 3206) T-ID (test code = A:1, 3, 11, 23, 24, 25, 3208) 26, 29, 30, 31, 32, 33, 34, 36, 43, 66, 68, 69, 74, 80B:39, 64, 75, 8, 13, 27, 37, 38, 41, 42, 44, 45, 47, 49, 51, 52, 53, 54, 55, 57, 58, 59, 63, 67, 76, 77, 82Cw:17, 2, 4, 5, 6, 15, 18 METHOD (test code = Luminex 3209) COMMENTS (test code Performed at [facility] = 3210) [facility] - Tissue AntigenDIRECTOR: ?MISA MARY MD, EKQ[address] [place], [place] ?[address]Lahgi: [phone] No. [id number] ANALYTE SPECIFIC REAGENT STATEMENT: ?This test was developed and its performance characteristics determined by the [facility] Tissue Antigen [facility]. ?The test has not been cleared or approved by the [place] [employer] and [employer] (USFDA). ?The USFDA does not require licensing of reagents used in these tests. VERIFIED BY: ?Osmany Pinedo (electronic signature) 12/10/2021 REPORT DTE (test 12/10/2021 code = 3211) TECH (test code = RR 3212) [facility]2021[facility]10 18:42:37 Test Item Value Reference Range Interpretation Comments Height (test code = in 7340319043) Weight (test code = lbs 7955980991) Systolic BP (test code = mmHg 1248676731) Diastolic BP (test code = mmHg 7096921092) Heart Rate (test code = bpm 7868253236) LVOT stroke volume (test 63.10 cm3 code = 5564527298) EF(Teich) (test code = 76.50 % 3597701363) LVIDD (test code = 4.60 cm 9388504196) LVIDS (test code = 2.50 cm 0658536569) IVS (test code = 0.86 cm 4324787508) LVPWD (test code = 0.86 cm 2680148581) LVOT diameter (test code = 2.01 cm 8163678200) FS (test code = 45 % 5484539746) MV Peak E Cathryn (test code = 126.4 cm/s 8193507128) MV Peak A Cathryn (test code = 105.6 cm/s 3635965080) E/A ratio (test code = ratio 1656344986) E wave decelartion time 0.24 s (test code = 4423179930) MV E/e' septal (test code 7.1 cm/s = 0486185982) LA Volume Index (BP) (test 40.5 mL/m2 code = 0944880671) LA volume (BP) (test code 81.8 mL = 7731762116) LVOT peak cathryn (test code = 106.1 cm/s 9103782894) LVOT mn grad (test code = mmHg 4834136802) BSA (test code = 2.02 m2 0131562275) LA size (test code = 4.2 cm 2887047385) LAV(MOD-sp2) (test code = 76.30 mL 3167274831) LAV(MOD-sp4) (test code = 77.30 mL 6385628392) Tapse (test code = 2.31 cm 9598898101) Aortic valve mean velocity 167.9 cm/s (test code = 4419227759) Ao peak cathryn (test code = 255.3 cm/s 3260394123) Ao VTI (test code = 44.3 cm 2518545465) AV LVOT peak gradient mmHg (test code = 7224905368) LVOT peak VTI (test code = 19.9 cm 0020564136) AV area by cont VTI (test 1.4 cm2 code = 4329358258) AV area peak cathryn (test 1.3 cm2 code = 5510146013) LV V1 mean (test code = 70.80 cm/s 9426566562) Ao max PG (test code = 26.10 mm[Hg] 6523682087) MV Prop V (test code = 59.80 cm/s 4650514756) Ao root annulus (test code 3.3 cm = 7453940970) Ao root diam (test code = 3.30 cm 9789675139) AV peak gradient (test mmHg code = 4674524108) AV valve area (test code = 1.42 cm2 6898036783) AV mean gradient (test mmHg code = 3363549230) Aortic root (test code = 3.3 cm 5641600864) PW (test code = 0.86 cm 0.6-1.4 3556272567) EF - 2D (test code = 76.50 % 28790427) Interventricular Septum 0.86 cm Diastolic Thickness by 2D (test code = 1602719) Radiology Study observation (narrative) (test code = 06039-7) FINA (test code = FINA) ?Left?Ventricle: No regional wall motion abnormalities. Normal systolic function with a visually estimated EF of 65 - 70%. There is impaired relaxation. ?Right?Ventricle: Right ventricle is normal in size and function. ?Left?Atrium: Left atrium is moderately dilated. [facility] GLUCOSE (AUTOMATED)2021-12-10 16:49:01 Test Item Value Reference Range Interpretation Comments POCT GLU (test code = 1730504700) 173 mg/dL 70-110 H Lab Interpretation (test code = Abnormal 89064-1) [facility] GLUCOSE (AUTOMATED)2021-12-10 14:20:52 Test Item Value Reference Range Interpretation Comments POCT GLU (test code = 8200510790) 147 mg/dL 70-110 H Lab Interpretation (test code = Abnormal 37399-9) [facility] GLUCOSE (AUTOMATED)2021-12-10 12:57:11 Test Item Value Reference Range Interpretation Comments POCT GLU (test code = 5910221755) 123 mg/dL 70-110 H Lab Interpretation (test code = Abnormal 08246-9) [facility] WITH [id number] 10:54:10 Test Item Value Reference Range Interpretation Comments WBC (test code = See_Comment [Automated 6690-2) message] The sy stem which generated this result transmitted reference range : 4.30 - 11.10 10*3/?L. The reference range was not used to interpret this result as normal/abnormal . RBC (test code = See_Comment L [Automated 789-8) message] The sy stem which generated this result transmitted reference range : 3.93 - 5.25 10*6/?L. The reference range was not used to interpret this result as normal/abnormal . HGB (test code = 7.4 g/dL 11.6-15.0 L 718-7) HCT (test code = 21.1 % 35.7-45.2 L 4544-3) MCV (test code = 88.3 fL 80.6-95.5 787-2) MCH (test code = 31.0 pg 25.9-32.8 785-6) MCHC (test code = 35.1 g/dL 31.6-35.1 786-4) RDW-SD (test code = 45.3 fL 39.0-49.9 83608-5) RDW-CV (test code = 14.1 % 12.0-15.5 788-0) PLT (test code = See_Comment L [Automated 777-3) message] The sy stem which generated this result transmitted reference range : 166 - 358 10*3/ ?L. The reference r willem was not used to interpret this result as normal/abnormal . MPV (test code = Not Measure d 49378-0) IPF % (test code = 18.6 % 1.3-7.7 H Platelet count 5070143593) measured by fluorescence method. NRBC/100 WBC (test See_Comment [Automat ed code = 1782554251) message] The system which generated this result transmitted reference range : 0.0 - 10.0 /100 WBCs. The refer ence range was not u sed to interpret th is result as normal/abnormal . NRBC x10^3 (test code See_Comment [Auto mated = 3302280414) message] The s ystem which generated this result transmitted reference range : 10*3/?L. The reference range was not used to interpret this result as normal/abnormal . SEG % (test code = 30 % 33-76 L 53823-7) BAND % (test code = 47 % 0-1 H 22929-3) META % (test code = 4 % See_Comment H [Automa allison 49465-3) message] The sy stem which generated this result transmitted reference range : <=0. The refere nce range was not u sed to interpret th is result as normal/abnormal . MYELO % (test code = 4 % See_Comment H [Autom ated 34411-6) message] The sy stem which generated this result transmitted reference range : <=0. The refere nce range was not u sed to interpret th is result as normal/abnormal . LYMPH % (test code = 7 % 14-54 L 80298-9) REACT LYMPH % (test 2 % code = 1947333512) MONO % (test code = 4 % 0-4 44012-2) EOS % (test code = 2 % 0-3 42233-2) ANC (test code = 3.34 10*3/uL 1.88-7.09 753-4) DOHLE BODIES (test Present A code = 7792-5) TOXIC CHANGES (test Present A code = 803-7) Lab Interpretation Abnormal (test code = 26243-0) [facility]69441[facility] (ALB,T.PRO,BILI T,BU/BC,ALT,AST,ALK PHOS)2021-12-10 10:18:06 Test Item Value Reference Range Interpretation Comments TOTAL BILI (test code = 2805302008) 0.5 mg/dL 0.1-1.1 BILI UNCON (test code = 9454660490) 0.2 mg/dL 0.1-1.1 BILI CONJ (test code = 2201905230) 0.0 mg/dL 0.0-0.3 T PROTEIN (test code = 6256964288) 5.2 g/dL 6.3-8.2 L ALBUMIN (test code = 7192717523) 2.1 g/dL 3.5-5.0 L ALK PHOS (test code = 4705369611) 114 U/L 34-122 ALTv (test code = 1742-6) 22 U/L 5-35 AST(SGOT) (test code = 4680473844) 56 U/L 13-40 H Lab Interpretation (test code = Abnormal 19246-9) [facility] METABOLIC PANEL (NA, K, CL, CO2, GLUCOSE, BUN, CREATININE, CA)2021-12-10 10:17:46 Test Item Value Reference Range Interpretation Comments NA (test code = 132 mmol/L 135-145 L 3534942663) K (test code = 4.2 mmol/L 3.5-5.0 6718281354) CL (test code = 106 mmol/L 98-108 2156538622) CO2 TOTAL (test code = 19 mmol/L 23-31 L 2197647596) AGAP (test code = 2-16 7062035242) BUN (test code = 48 mg/dL 7-23 H 7450217835) GLUCOSE (test code = 102 mg/dL 70-110 9116025200) CREATININE (test code = 2.53 mg/dL 0.50-1.04 H 7204625422) CALCIUM (test code = 6.2 mg/dL 8.6-10.6 L 5386336225) eGFR (test code = mL/min/1.73m2 0842660808) FINA (test code = FINA) Association of Glomerular Filtration Rate (GFR) and Staging of Kidney Disease* + --+ --+ ------+| GFR (mL/min/1.73 m2) ?| With Kidney Damage ?| ?Without Kidney Damage+ --------+ --------+ +| ?>90 ?| ?Stage one ?| ? Normal ?+ ---+ ---+ -------+| ?60-89 ?| ?Stage two ?| ? Decreased GFR ? + --+ --+ ------+| ?30-59 ?| ?Stage three ?| ? Stage three ? + --+ --+ ------+| ?15-29 ?| ?Stage four ? | ? Stage four ?+ ---+ ---+ -------+| ?<15 (or dialysis) ? ?| ?Stage five ? | ? Stage five ?+ ---+ ---+ -------+ *Each stage assumes the associated GFR level has been in effect for at least three months. ?Stages 1 to 5, with or without kidney disease, indicate chronic kidney disease. Notes: Determination of stages one and two (with eGFR >59mL/min/1.73 m2) requires estimation of kidney damage for at least three months as defined by structural or functional abnormalities of the kidney, manifested by either:Pathological abnormalities or Markers of kidney damage (including abnormalities in the composition of the blood or urine or abnormalities in imaging tests). Lab Interpretation Abnormal (test code = 61081-3) [facility] 10:17:46 Test Item Value Reference Range Interpretation Comments MAGNESIUM (test code = 1705450693) 2.2 mg/dL 1.7-2.4 Lab Interpretation (test code = Normal 61711-0) [facility] CenterIONIZED [id number] 10:08:44 Test Item Value Reference Range Interpretation Comments IONIZED CA (test code = 3.90 mg/dL 4.50-5.30 L 3952049392) PH SERUM (test code = 2905115154) 7.35-7.45 L Lab Interpretation (test code = Abnormal 84973-3) [facility] CenterLactic Acid Whole [id number] 09:34:40 Test Item Value Reference Range Interpretation Comments LACTIC ACID (test code = 2.00 mmol/L 0.50-2.20 6353179631) Lab Interpretation (test code = Normal 10933-0) [facility] GLUCOSE (AUTOMATED)2021-12-10 06:46:49 Test Item Value Reference Range Interpretation Comments POCT GLU (test code = 5933245782) 89 mg/dL 70-110 Lab Interpretation (test code = Normal 82054-5) [facility] GLUCOSE (AUTOMATED)2021-12-10 04:17:39 Test Item Value Reference Range Interpretation Comments POCT GLU (test code = 2973285682) 73 mg/dL 70-110 Lab Interpretation (test code = Normal 08266-9) [facility]2021-12-10 02:04:59 Test Item Value Reference Range Interpretation Comments POCT GLU (test code = 3814638895) 92 mg/dL 70-110 Lab Interpretation (test code = Normal 73852-7) [facility] Center[facility] Panel 20 + Lactic [id number] 23:44:18 Test Item Value Reference Range Interpretation Comments PH (test code = 2) 7.35-7.45 PCO2 (test code = See_Comment L [Automat ed 1998942825) message] The sy stem which generated this result transmitted reference range : 35 - 45 mmHg. The reference range was not used to interpret this result as normal/abnormal . PO2 (test code = See_Comment L [Automated 6357821536) message] The sy stem which generated this result transmitted reference range : 80 - 100 mmHg. The reference range was not used to interpret this result as normal/abnormal . HCO3 (test code = See_Comment L [Automate d 3655329392) message] The sy stem which generated this result transmitted reference range : 22 - 26 mEq/L. The reference range was not used to interpret this result as normal/abnormal . BE (test code = See_Comment L [Automated 5194873599) message] The sy stem which generated this result transmitted reference range : -3.0 - 3.0 mEq/ L. The reference r willem was not used to interpret this result as normal/abnormal . THB (test code = 8.5 g/dL 12.0-16.0 L 3332850761) %O2HB (test code = 91.2 % 94.0-99.0 L 5854259199) %COHB ART (test code = 0.0 % 0.0-1.5 3015354845) %METHB ART (test code = 0.4 % 0.4-1.5 1549576158) VOL%O2 ART (test code = 11.0 % 15.0-23.0 L 7799585042) NA (test code = 131 mmol/L 135-145 L 7790145949) K+ (test code = 4.0 mmol/L 3.5-5.0 2440778975) AC CA IONZ (test code = 3.80 mg/dL 4.50-5.30 L 0624492556) GLUCOSE (test code = 128 mg/dL 70-110 H 7196805797) LACTIC ACID (test code 2.20 mmol/L 0.50-2.20 = 0240663310) Lab Interpretation Abnormal (test code = 89237-7) [facility] GLUCOSE (AUTOMATED)2021-12-09 23:39:26 Test Item Value Reference Range Interpretation Comments POCT GLU (test code = 8903089669) 141 mg/dL 70-110 H Lab Interpretation (test code = Abnormal 71359-1) [facility] GLUCOSE (AUTOMATED)2021-12-09 21:17:09 Test Item Value Reference Range Interpretation Comments POCT GLU (test code = 4435082554) 160 mg/dL 70-110 H Lab Interpretation (test code = Abnormal 75980-3) [facility] GLUCOSE (AUTOMATED)2021-12-09 19:01:44 Test Item Value Reference Range Interpretation Comments POCT GLU (test code = 7551087462) 169 mg/dL 70-110 H Lab Interpretation (test code = Abnormal 54841-6) [facility] GLUCOSE (AUTOMATED)2021-12-09 16:53:55 Test Item Value Reference Range Interpretation Comments POCT GLU (test code = 5084725117) 171 mg/dL 70-110 H Lab Interpretation (test code = Abnormal 94228-7) [facility] GLUCOSE (AUTOMATED)2021-12-09 13:21:51 Test Item Value Reference Range Interpretation Comments POCT GLU (test code = 2665581883) 178 mg/dL 70-110 H Lab Interpretation (test code = Abnormal 83524-1) [facility] GLUCOSE (AUTOMATED)2021-12-09 10:42:59 Test Item Value Reference Range Interpretation Comments POCT GLU (test code = 8671668938) 177 mg/dL 70-110 H Lab Interpretation (test code = Abnormal 91626-9) [facility] WITH [id number] 10:41:39 Test Item Value Reference Range Interpretation Comments WBC (test code = See_Comment LL [Automated 6690-2) message] The sy stem which generated this result transmitted reference range : 4.30 - 11.10 10*3/?L. The reference range was not used to interpret this result as normal/abnormal . RBC (test code = See_Comment L [Automated 789-8) message] The sy stem which generated this result transmitted reference range : 3.93 - 5.25 10*6/?L. The reference range was not used to interpret this result as normal/abnormal . HGB (test code = 7.4 g/dL 11.6-15.0 L 718-7) HCT (test code = 21.9 % 35.7-45.2 L 4544-3) MCV (test code = 89.4 fL 80.6-95.5 787-2) MCH (test code = 30.2 pg 25.9-32.8 785-6) MCHC (test code = 33.8 g/dL 31.6-35.1 786-4) RDW-SD (test code = 44.7 fL 39.0-49.9 35701-1) RDW-CV (test code = 13.7 % 12.0-15.5 788-0) PLT (test code = See_Comment LL [Automated 777-3) message] The sy stem which generated this result transmitted reference range : 166 - 358 10*3/ ?L. The reference r willem was not used to interpret this result as normal/abnormal . MPV (test code = Not Measure d 99764-1) IPF % (test code = 23.6 % 1.3-7.7 H Platelet count 2293178462) measured by fluorescence method. NRBC/100 WBC (test See_Comment [Automat ed code = 2509704086) message] The system which generated this result transmitted reference range : 0.0 - 10.0 /100 WBCs. The refer ence range was not u sed to interpret th is result as normal/abnormal . NRBC x10^3 (test code See_Comment [Auto mated = 8906639258) message] The s ystem which generated this result transmitted reference range : 10*3/?L. The reference range was not used to interpret this result as normal/abnormal . SEG % (test code = 16 % 33-76 L 47588-7) BAND % (test code = 14 % 0-1 H 05738-5) META % (test code = 2 % See_Comment H [Automa allison 84777-7) message] The sy stem which generated this result transmitted reference range : <=0. The refere nce range was not u sed to interpret th is result as normal/abnormal . MYELO % (test code = 2 % See_Comment H [Autom ated 79602-0) message] The sy stem which generated this result transmitted reference range : <=0. The refere nce range was not u sed to interpret th is result as normal/abnormal . LYMPH % (test code = 47 % 14-54 20011-6) MONO % (test code = 12 % 0-4 H 60825-4) EOS % (test code = 6 % 0-3 H 55838-3) ANC (test code = 0.38 10*3/uL 1.88-7.09 L 753-4) TOXIC CHANGES (test Present A code = 803-7) Lab Interpretation Abnormal (test code = 04304-8) [facility] METABOLIC PANEL (NA, K, CL, CO2, GLUCOSE, BUN, CREATININE, CA)2021-12-09 10:03:04 Test Item Value Reference Range Interpretation Comments NA (test code = 134 mmol/L 135-145 L 1285370315) K (test code = 4.0 mmol/L 3.5-5.0 9979746517) CL (test code = 108 mmol/L 98-108 0796671680) CO2 TOTAL (test code = 20 mmol/L 23-31 L 7162858798) AGAP (test code = 2-16 4980235903) BUN (test code = 41 mg/dL 7-23 H 4448670007) GLUCOSE (test code = 170 mg/dL 70-110 H 5841490285) CREATININE (test code = 2.07 mg/dL 0.50-1.04 H 1070444595) CALCIUM (test code = 5.9 mg/dL 8.6-10.6 LL 1750611548) eGFR (test code = mL/min/1.73m2 0518834728) FINA (test code = FINA) Association of Glomerular Filtration Rate (GFR) and Staging of Kidney Disease* + --+ --+ ------+| GFR (mL/min/1.73 m2) ?| With Kidney Damage ?| ?Without Kidney Damage+ --------+ --------+ +| ?>90 ?| ?Stage one ?| ? Normal ?+ ---+ ---+ -------+| ?60-89 ?| ?Stage two ?| ? Decreased GFR ? + --+ --+ ------+| ?30-59 ?| ?Stage three ?| ? Stage three ? + --+ --+ ------+| ?15-29 ?| ?Stage four ? | ? Stage four ?+ ---+ ---+ -------+| ?<15 (or dialysis) ? ?| ?Stage five ? | ? Stage five ?+ ---+ ---+ -------+ *Each stage assumes the associated GFR level has been in effect for at least three months. ?Stages 1 to 5, with or without kidney disease, indicate chronic kidney disease. Notes: Determination of stages one and two (with eGFR >59mL/min/1.73 m2) requires estimation of kidney damage for at least three months as defined by structural or functional abnormalities of the kidney, manifested by either:Pathological abnormalities or Markers of kidney damage (including abnormalities in the composition of the blood or urine or abnormalities in imaging tests). Lab Interpretation Abnormal (test code = 60151-2) [facility] 09:56:51 Test Item Value Reference Range Interpretation Comments MAGNESIUM (test code = 0079485452) 2.0 mg/dL 1.7-2.4 Lab Interpretation (test code = Normal 87285-1) [facility] GLUCOSE (AUTOMATED)2021-12-09 06:58:38 Test Item Value Reference Range Interpretation Comments POCT GLU (test code = 9724670141) 170 mg/dL 70-110 H Lab Interpretation (test code = Abnormal 59006-3) [facility] GLUCOSE (AUTOMATED)2021-12-09 04:01:33 Test Item Value Reference Range Interpretation Comments POCT GLU (test code = 0515500501) 178 mg/dL 70-110 H Lab Interpretation (test code = Abnormal 91719-1) [facility] GLUCOSE (AUTOMATED)2021-12-09 00:51:45 Test Item Value Reference Range Interpretation Comments POCT GLU (test code = 0192411139) 146 mg/dL 70-110 H Lab Interpretation (test code = Abnormal 10178-7) [facility] WITH [id number] 22:08:54 Test Item Value Reference Range Interpretation Comments WBC (test code = See_Comment LL [Automated 6690-2) message] The sy stem which generated this result transmitted reference range : 4.30 - 11.10 10*3/?L. The reference range was not used to interpret this result as normal/abnormal . RBC (test code = See_Comment L [Automated 789-8) message] The sy stem which generated this result transmitted reference range : 3.93 - 5.25 10*6/?L. The reference range was not used to interpret this result as normal/abnormal . HGB (test code = 8.1 g/dL 11.6-15.0 L 718-7) HCT (test code = 23.0 % 35.7-45.2 L 4544-3) MCV (test code = 87.5 fL 80.6-95.5 787-2) MCH (test code = 30.8 pg 25.9-32.8 785-6) MCHC (test code = 35.2 g/dL 31.6-35.1 H 786-4) RDW-SD (test code = 43.0 fL 39.0-49.9 51096-5) RDW-CV (test code = 13.6 % 12.0-15.5 788-0) PLT (test code = See_Comment LL [Automated 777-3) message] The sy stem which generated this result transmitted reference range : 166 - 358 10*3/ ?L. The reference r willem was not used to interpret this result as normal/abnormal . MPV (test code = Not Measure d 11878-9) IPF % (test code = 28.6 % 1.3-7.7 H The IPF v alue may 7322750684) not be reliable when the patien t's platelet count is less than 10 x 10*3/uL due to the higher imprecis ion of the IPF at l ow counts. Platele t count measured by fluorescence method. NRBC/100 WBC (test See_Comment [Automat ed code = 5577323150) message] The system which generated this result transmitted reference range : 0.0 - 10.0 /100 WBCs. The refer ence range was not u sed to interpret th is result as normal/abnormal . NRBC x10^3 (test code See_Comment [Auto mated = 8301647808) message] The s ystem which generated this result transmitted reference range : 10*3/?L. The reference range was not used to interpret this result as normal/abnormal . GRAN MAT (NEUT) % 32.5 % (test code = 770-8) IMM GRAN % (test code 2.50 % = 3940925880) LYMPH % (test code = 32.5 % 736-9) MONO % (test code = 20.0 % 5905-5) EOS % (test code = 12.5 % 713-8) BASO % (test code = 0.0 % 706-2) GRAN MAT x10^3(ANC) 0.13 10*3/uL 1.88-7.09 L (test code = 7360328383) IMM GRAN x10^3 (test <0.03 0.00-0.06 code = 9458853965) LYMPH x10^3 (test code 0.13 10*3/uL 1.32-3.29 L = 731-0) MONO x10^3 (test code 0.08 10*3/uL 0.33-0.92 L = 742-7) EOS x10^3 (test code = 0.05 10*3/uL 0.03-0.39 711-2) BASO x10^3 (test code <0.03 0.01-0.07 = 704-7) Lab Interpretation Abnormal (test code = 58992-8) [facility] GLUCOSE (AUTOMATED)2021-12-08 21:28:54 Test Item Value Reference Range Interpretation Comments POCT GLU (test code = 6957488295) 293 mg/dL 70-110 H Lab Interpretation (test code = Abnormal 93175-9) [facility] GLUCOSE (AUTOMATED)2021-12-08 19:09:43 Test Item Value Reference Range Interpretation Comments POCT GLU (test code = 4230935631) 306 mg/dL 70-110 H Lab Interpretation (test code = Abnormal 73090-7) [facility] Center[facility] Platelets (in units): 1 Units~Indication: 1) Platelets < 10,000 for bleeding prophylaxis (per hematology); Special Requirements: Leukoreduced (HLA matched)2021-12-08 19:08:27 Test Item Value Reference Range Interpretation Comments Unit Blood Type (test A Pos code = 4410) ISBT Blood Type Code (test code = 844871) Unit Number (test code [id number] = 4411) Blood Expiration Date & Time (test code = 399549) Status Information Issued (test code = 4412) Product Identification Platelets (test code = 4413) Product Code (test [id number] Performed at [facility] code = 4414) Laboratory Services - [facility] Blood [address] [place] [address]Gmep Free: [phone] A No. [id number] [facility]2021-12-08 17:21:14 Test Item Value Reference Range Interpretation Comments POCT GLU (test code = 9978999354) 328 mg/dL 70-110 H Lab Interpretation (test code = Abnormal 04104-6) [facility] WITH [id number] 14:17:38 Test Item Value Reference Range Interpretation Comments WBC (test code = See_Comment LL [Automated 0190-2) message] The sy stem which generated this result transmitted reference range : 4.30 - 11.10 10*3/?L. The reference range was not used to interpret this result as normal/abnormal . RBC (test code = See_Comment L [Automated 259-8) message] The sy stem which generated this result transmitted reference range : 3.93 - 5.25 10*6/?L. The reference range was not used to interpret this result as normal/abnormal . HGB (test code = 7.1 g/dL 11.6-15.0 L 718-7) HCT (test code = 21.0 % 35.7-45.2 L 4544-3) MCV (test code = 90.1 fL 80.6-95.5 787-2) MCH (test code = 30.5 pg 25.9-32.8 785-6) MCHC (test code = 33.8 g/dL 31.6-35.1 786-4) RDW-SD (test code = 45.2 fL 39.0-49.9 43525-6) RDW-CV (test code = 13.8 % 12.0-15.5 788-0) PLT (test code = See_Comment LL [Automated 777-3) message] The sy stem which generated this result transmitted reference range : 166 - 358 10*3/ ?L. The reference r willem was not used to interpret this result as normal/abnormal . MPV (test code = Not Measure d 28011-4) IPF % (test code = 22.1 % 1.3-7.7 H The IPF v alue may 8263750786) not be reliable when the patien t's platelet count is less than 10 x 10*3/uL due to the higher imprecis ion of the IPF at l ow counts. Platele t count measured by fluorescence method. NRBC/100 WBC (test See_Comment [Automat ed code = 1939912945) message] The system which generated this result transmitted reference range : 0.0 - 10.0 /100 WBCs. The refer ence range was not u sed to interpret th is result as normal/abnormal . NRBC x10^3 (test code See_Comment [Auto mated = 1456811317) message] The s ystem which generated this result transmitted reference range : 10*3/?L. The reference range was not used to interpret this result as normal/abnormal . SEG % (test code = 2 % 33-76 L 34133-0) BAND % (test code = 2 % 0-1 H 17910-5) META % (test code = 1 % See_Comment H [Automa allison 12055-7) message] The sy stem which generated this result transmitted reference range : <=0. The refere nce range was not u sed to interpret th is result as normal/abnormal . MYELO % (test code = 2 % See_Comment H [Autom ated 17024-3) message] The sy stem which generated this result transmitted reference range : <=0. The refere nce range was not u sed to interpret th is result as normal/abnormal . LYMPH % (test code = 64 % 14-54 H 94748-1) REACT LYMPH % (test 3 % code = 1566978104) MONO % (test code = 14 % 0-4 H 36366-5) EOS % (test code = 12 % 0-3 H 19594-8) ANC (test code = 0.02 10*3/uL 1.88-7.09 L 753-4) Lab Interpretation Abnormal (test code = 20460-0) [facility] 14:07:32 Test Item Value Reference Range Interpretation Comments POCT GLU (test code = 8606611881) 323 mg/dL 70-110 H Lab Interpretation (test code = Abnormal 29510-2) [facility] METABOLIC PANEL (NA, K, CL, CO2, GLUCOSE, BUN, CREATININE, CA)2021-12-08 12:17:24 Test Item Value Reference Range Interpretation Comments NA (test code = 138 mmol/L 135-145 7769003775) K (test code = 4.4 mmol/L 3.5-5.0 9992896491) CL (test code = 111 mmol/L 98-108 H 5432151086) CO2 TOTAL (test code = 20 mmol/L 23-31 L 8872335145) AGAP (test code = 2-16 4672557240) BUN (test code = 41 mg/dL 7-23 H 0173296626) GLUCOSE (test code = 265 mg/dL 70-110 H 3615784982) CREATININE (test code = 1.96 mg/dL 0.50-1.04 H 0277483687) CALCIUM (test code = 6.0 mg/dL 8.6-10.6 L 7348207755) eGFR (test code = mL/min/1.73m2 5493929085) FINA (test code = FINA) Association of Glomerular Filtration Rate (GFR) and Staging of Kidney Disease* + --+ --+ ------+| GFR (mL/min/1.73 m2) ?| With Kidney Damage ?| ?Without Kidney Damage+ --------+ --------+ +| ?>90 ?| ?Stage one ?| ? Normal ?+ ---+ ---+ -------+| ?60-89 ?| ?Stage two ?| ? Decreased GFR ? + --+ --+ ------+| ?30-59 ?| ?Stage three ?| ? Stage three ? + --+ --+ ------+| ?15-29 ?| ?Stage four ? | ? Stage four ?+ ---+ ---+ -------+| ?<15 (or dialysis) ? ?| ?Stage five ? | ? Stage five ?+ ---+ ---+ -------+ *Each stage assumes the associated GFR level has been in effect for at least three months. ?Stages 1 to 5, with or without kidney disease, indicate chronic kidney disease. Notes: Determination of stages one and two (with eGFR >59mL/min/1.73 m2) requires estimation of kidney damage for at least three months as defined by structural or functional abnormalities of the kidney, manifested by either:Pathological abnormalities or Markers of kidney damage (including abnormalities in the composition of the blood or urine or abnormalities in imaging tests). Lab Interpretation Abnormal (test code = 54128-9) [facility] 12[facility]17:24 Test Item Value Reference Range Interpretation Comments MAGNESIUM (test code = 1445519327) 2.0 mg/dL 1.7-2.4 Lab Interpretation (test code = Normal 21502-8) [facility]21-[facility]-08 11:33:36 Test Item Value Reference Range Interpretation Comments POCT GLU (test code = 2053966445) 300 mg/dL 70-110 H Lab Interpretation (test code = Abnormal 62587-7) [facility]2021-12-08 08:28:56 Test Item Value Reference Range Interpretation Comments Unit Blood Type (test B Neg code = 4410) ISBT Blood Type Code (test code = 311263) Unit Number (test code [id number] = 4411) Blood Expiration Date & Time (test code = 543933) Status Information Issued (test code = 4412) Product Identification Platelets (test code = 4413) Product Code (test [id number] Performed at [facility] code = 4414) [facility] - [facility] Blood [address] [place] [address]Wwwm Free: [phone] A No. [id number] [facility]2021-12-08 08:24:56 Test Item Value Reference Range Interpretation Comments POCT GLU (test code = 5125250629) 238 mg/dL 70-110 H Lab Interpretation (test code = Abnormal 27070-6) [facility] WITH [id number] 05:54:34 Test Item Value Reference Range Interpretation Comments WBC (test code = See_Comment LL [Automated 6690-2) message] The system which generated this result transmit allison reference range : 4.30 - 11.10 10*3/?L. The reference range was not used to interpret this result as normal/abnormal . RBC (test code = See_Comment L [Automated 789-8) message] The system which generated this result transmit allison reference range : 3.93 - 5.25 10*6/?L. The reference range was not used to interpret this result as normal/abnormal . HGB (test code = 7.5 g/dL 11.6-15.0 L 718-7) HCT (test code = 20.9 % 35.7-45.2 L 4544-3) MCV (test code = 87.4 fL 80.6-95.5 787-2) MCH (test code = 31.4 pg 25.9-32.8 785-6) MCHC (test code = 35.9 g/dL 31.6-35.1 H 786-4) RDW-SD (test code = 43.7 fL 39.0-49.9 27074-4) RDW-CV (test code = 13.6 % 12.0-15.5 788-0) PLT (test code = See_Comment LL [Automated 777-3) message] The system which generated this result transmit allison reference range : 166 - 358 10*3/ ?L. The reference range was not u sed to interpret th is result as normal/abnormal . MPV (test code = Not Measure d 05746-0) IPF % (test code = 17.6 % 1.3-7.7 H The IPF v alue may 9032751168) not be reliable when the patien t's platelet count is less than 10 x 10*3/uL due to the higher imprecis ion of the IPF at l ow counts. Platele t count measured by fluorescence method. NRBC/100 WBC (test See_Comment [Automat ed code = 4443410750) message] The system which generated this result transmit allison reference range : 0.0 - 10.0 /100 WBCs. The reference range was not used to interpret this result as normal/abnormal . NRBC x10^3 (test code <0.01 See_Comment [Auto mated = 4991031983) message] The system which generated this result transmit allison reference range : 10*3/?L. The reference range was not used to interpret this result as normal/abnormal . GRAN MAT (NEUT) % 0.0 % (test code = 770-8) IMM GRAN % (test code 7.20 % = 1055166630) LYMPH % (test code = 46.4 % 736-9) MONO % (test code = 32.1 % 5905-5) EOS % (test code = 14.3 % 713-8) BASO % (test code = 0.0 % 706-2) GRAN MAT x10^3(ANC) <0.03 1.88-7.09 L (test code = 7731462999) IMM GRAN x10^3 (test <0.03 0.00-0.06 code = 4784572077) LYMPH x10^3 (test 0.13 10*3/uL 1.32-3.29 L code = 731-0) MONO x10^3 (test code 0.09 10*3/uL 0.33-0.92 L = 742-7) EOS x10^3 (test code 0.04 10*3/uL 0.03-0.39 = 711-2) BASO x10^3 (test code <0.03 0.01-0.07 = 704-7) FINA (test code = FINA) Qns for manual diff/only 1 lymphyces on the smear/wrm Lab Interpretation Abnormal (test code = 92148-4) [facility] METABOLIC PANEL (NA, K, CL, CO2, GLUCOSE, BUN, CREATININE, CA)2021-12-08 05:16:37 Test Item Value Reference Range Interpretation Comments NA (test code = 138 mmol/L 135-145 2831715067) K (test code = 4.1 mmol/L 3.5-5.0 5590851176) CL (test code = 112 mmol/L 98-108 H 2384145604) CO2 TOTAL (test code = 19 mmol/L 23-31 L 9320186545) AGAP (test code = 2-16 0922960835) BUN (test code = 41 mg/dL 7-23 H 9758675148) GLUCOSE (test code = 209 mg/dL 70-110 H 7962695711) CREATININE (test code = 1.89 mg/dL 0.50-1.04 H 0528936264) CALCIUM (test code = 6.0 mg/dL 8.6-10.6 L 8486151807) eGFR (test code = mL/min/1.73m2 4169961288) FINA (test code = FINA) Association of Glomerular Filtration Rate (GFR) and Staging of Kidney Disease* + --+ --+ ------+| GFR (mL/min/1.73 m2) ?| With Kidney Damage ?| ?Without Kidney Damage+ --------+ --------+ +| ?>90 ?| ?Stage one ?| ? Normal ?+ ---+ ---+ -------+| ?60-89 ?| ?Stage two ?| ? Decreased GFR ? + --+ --+ ------+| ?30-59 ?| ?Stage three ?| ? Stage three ? + --+ --+ ------+| ?15-29 ?| ?Stage four ? | ? Stage four ?+ ---+ ---+ -------+| ?<15 (or dialysis) ? ?| ?Stage five ? | ? Stage five ?+ ---+ ---+ -------+ *Each stage assumes the associated GFR level has been in effect for at least three months. ?Stages 1 to 5, with or without kidney disease, indicate chronic kidney disease. Notes: Determination of stages one and two (with eGFR >59mL/min/1.73 m2) requires estimation of kidney damage for at least three months as defined by structural or functional abnormalities of the kidney, manifested by either:Pathological abnormalities or Markers of kidney damage (including abnormalities in the composition of the blood or urine or abnormalities in imaging tests). Lab Interpretation Abnormal (test code = 82400-9) [facility] GLUCOSE (AUTOMATED)2021-12-08 03:56:37 Test Item Value Reference Range Interpretation Comments POCT GLU (test code = 9418507087) 213 mg/dL 70-110 H Lab Interpretation (test code = Abnormal 81314-8) [facility] GLUCOSE (AUTOMATED)2021-12-08 01:26:12 Test Item Value Reference Range Interpretation Comments POCT GLU (test code = 9860793155) 222 mg/dL 70-110 H Lab Interpretation (test code = Abnormal 02502-4) [facility] GLUCOSE (AUTOMATED)2021-12-07 21:55:43 Test Item Value Reference Range Interpretation Comments POCT GLU (test code = 0903391032) 187 mg/dL 70-110 H Lab Interpretation (test code = Abnormal 46960-3) [facility] WITH [id number] 20:52:51 Test Item Value Reference Range Interpretation Comments WBC (test code = See_Comment LL [Automated 6690-2) message] The sy stem which generated this result transmitted reference range : 4.30 - 11.10 10*3/?L. The reference range was not used to interpret this result as normal/abnormal . RBC (test code = See_Comment L [Automated 789-8) message] The sy stem which generated this result transmitted reference range : 3.93 - 5.25 10*6/?L. The reference range was not used to interpret this result as normal/abnormal . HGB (test code = 7.0 g/dL 11.6-15.0 L 718-7) HCT (test code = 19.6 % 35.7-45.2 L 4544-3) MCV (test code = 87.5 fL 80.6-95.5 787-2) MCH (test code = 31.3 pg 25.9-32.8 785-6) MCHC (test code = 35.7 g/dL 31.6-35.1 H 786-4) RDW-SD (test code = 43.2 fL 39.0-49.9 74722-4) RDW-CV (test code = 13.6 % 12.0-15.5 788-0) PLT (test code = See_Comment LL [Automated 777-3) message] The sy stem which generated this result transmitted reference range : 166 - 358 10*3/ ?L. The reference r willem was not used to interpret this result as normal/abnormal . MPV (test code = Not Measure d 74402-0) IPF % (test code = 8.1 % 1.3-7.7 H The IPF v alue may 9664069879) not be reliable when the patien t's platelet count is less than 10 x 10*3/uL due to the higher imprecis ion of the IPF at l ow counts. Platele t count measured by fluorescence method. NRBC/100 WBC (test See_Comment [Automat ed code = 6182374482) message] The system which generated this result transmitted reference range : 0.0 - 10.0 /100 WBCs. The refer ence range was not u sed to interpret th is result as normal/abnormal . NRBC x10^3 (test code <0.01 See_Comment [Auto mated = 2085256150) message] The s ystem which generated this result transmitted reference range : 10*3/?L. The reference range was not used to interpret this result as normal/abnormal . GRAN MAT (NEUT) % 8.0 % (test code = 770-8) IMM GRAN % (test code 0.00 % = 2295623866) LYMPH % (test code = 48.0 % 736-9) MONO % (test code = 12.0 % 5905-5) EOS % (test code = 32.0 % 713-8) BASO % (test code = 0.0 % 706-2) GRAN MAT x10^3(ANC) <0.03 1.88-7.09 L (test code = 2885244533) IMM GRAN x10^3 (test <0.03 0.00-0.06 code = 5269859038) LYMPH x10^3 (test code 0.12 10*3/uL 1.32-3.29 L = 731-0) MONO x10^3 (test code 0.03 10*3/uL 0.33-0.92 L = 742-7) EOS x10^3 (test code = 0.08 10*3/uL 0.03-0.39 711-2) BASO x10^3 (test code <0.03 0.01-0.07 = 704-7) Lab Interpretation Abnormal (test code = 12763-7) [facility] Draw vanc level 23 hours post [id number] 19:36:49 Test Item Value Reference Range Interpretation Comments VANCO TROUGH (test code 11.2 ug/mL 10.0-20.0 = 5376668895) FINA (test code = FINA) Toxic Range: ?>20 ug/mL 15-20 ug/mL is recommended for severe infection or when Vancomycin WILSON is greater than or equal to 2. Lab Interpretation (test Normal code = 24922-3) [facility]2021-12-07 19:19:35 Test Item Value Reference Range Interpretation Comments POCT GLU (test code = 2107981980) 238 mg/dL 70-110 H Lab Interpretation (test code = Abnormal 31525-3) [facility] WITH [id number] 16:56:47 Test Item Value Reference Range Interpretation Comments WBC (test code = See_Comment LL [Automated 6490-2) message] The sy stem which generated this result transmitted reference range : 4.30 - 11.10 10*3/?L. The reference range was not used to interpret this result as normal/abnormal . RBC (test code = See_Comment L [Automated 649-8) message] The sy stem which generated this result transmitted reference range : 3.93 - 5.25 10*6/?L. The reference range was not used to interpret this result as normal/abnormal . HGB (test code = 7.3 g/dL 11.6-15.0 L 718-7) HCT (test code = 21.6 % 35.7-45.2 L 4544-3) MCV (test code = 89.6 fL 80.6-95.5 787-2) MCH (test code = 30.3 pg 25.9-32.8 785-6) MCHC (test code = 33.8 g/dL 31.6-35.1 786-4) RDW-SD (test code = 44.3 fL 39.0-49.9 16585-1) RDW-CV (test code = 13.5 % 12.0-15.5 788-0) PLT (test code = See_Comment LL [Automated 777-3) message] The sy stem which generated this result transmitted reference range : 166 - 358 10*3/ ?L. The reference r willem was not used to interpret this result as normal/abnormal . MPV (test code = 12.1 fL 9.5-12.9 78423-9) IPF % (test code = 2.3 % 1.3-7.7 Platelet count 6060696864) measured by fluorescence method. NRBC/100 WBC (test See_Comment [Automat ed code = 4423093832) message] The system which generated this result transmitted reference range : 0.0 - 10.0 /100 WBCs. The refer ence range was not u sed to interpret th is result as normal/abnormal . NRBC x10^3 (test code <0.01 See_Comment [Auto mated = 7841303475) message] The s ystem which generated this result transmitted reference range : 10*3/?L. The reference range was not used to interpret this result as normal/abnormal . SEG % (test code = 1 % 33-76 L 24790-7) LYMPH % (test code = 49 % 14-54 57169-8) REACT LYMPH % (test 2 % code = 8889473251) MONO % (test code = 4 % 0-4 89727-6) EOS % (test code = 44 % 0-3 H 49484-9) ANC (test code = 0.00 10*3/uL 1.88-7.09 L 753-4) Lab Interpretation Abnormal (test code = 00213-5) [facility]21-[facility]-07 15:58:35 Test Item Value Reference Range Interpretation Comments POCT GLU (test code = 3536399736) 257 mg/dL 70-110 H Lab Interpretation (test code = Abnormal 96465-2) [facility] METABOLIC PANEL (NA, K, CL, CO2, GLUCOSE, BUN, CREATININE, CA)2021-12-07 14:49:33 Test Item Value Reference Range Interpretation Comments NA (test code = 135 mmol/L 135-145 5652829152) K (test code = 3.6 mmol/L 3.5-5.0 3544140993) CL (test code = 111 mmol/L 98-108 H 3962290674) CO2 TOTAL (test code = 16 mmol/L 23-31 L 2030975726) AGAP (test code = 2-16 1902519228) BUN (test code = 49 mg/dL 7-23 H 4597959389) GLUCOSE (test code = 242 mg/dL 70-110 H 3215063299) CREATININE (test code = 1.82 mg/dL 0.50-1.04 H 9775472685) CALCIUM (test code = 6.0 mg/dL 8.6-10.6 L 4067312061) eGFR (test code = mL/min/1.73m2 6245228794) FINA (test code = FINA) Association of Glomerular Filtration Rate (GFR) and Staging of Kidney Disease* + --+ --+ ------+| GFR (mL/min/1.73 m2) ?| With Kidney Damage ?| ?Without Kidney Damage+ --------+ --------+ +| ?>90 ?| ?Stage one ?| ? Normal ?+ ---+ ---+ -------+| ?60-89 ?| ?Stage two ?| ? Decreased GFR ? + --+ --+ ------+| ?30-59 ?| ?Stage three ?| ? Stage three ? + --+ --+ ------+| ?15-29 ?| ?Stage four ? | ? Stage four ?+ ---+ ---+ -------+| ?<15 (or dialysis) ? ?| ?Stage five ? | ? Stage five ?+ ---+ ---+ -------+ *Each stage assumes the associated GFR level has been in effect for at least three months. ?Stages 1 to 5, with or without kidney disease, indicate chronic kidney disease. Notes: Determination of stages one and two (with eGFR >59mL/min/1.73 m2) requires estimation of kidney damage for at least three months as defined by structural or functional abnormalities of the kidney, manifested by either:Pathological abnormalities or Markers of kidney damage (including abnormalities in the composition of the blood or urine or abnormalities in imaging tests). Lab Interpretation Abnormal (test code = 98541-2) [facility] 14[facility]49[facility]33 Test Item Value Reference Range Interpretation Comments MAGNESIUM (test code = 5135089960) 2.0 mg/dL 1.7-2.4 Lab Interpretation (test code = Normal 51574-4) [facility]20[facility] 13:35:43 Test Item Value Reference Range Interpretation Comments Fibrinogen (test code = 1605686949) 646 mg/dL 167-453 H Lab Interpretation (test code = Abnormal 39607-3) [facility]2021-12-07 12:44:58 Test Item Value Reference Range Interpretation Comments POCT GLU (test code = 5852454352) 231 mg/dL 70-110 H Lab Interpretation (test code = Abnormal 02231-8) [facility] Platelets (in units): 1 Units~Indication: 1) Platelets < 10,000 for bleeding [id number] 11:30:59 Test Item Value Reference Range Interpretation Comments Unit Blood Type (test O Pos code = 4410) ISBT Blood Type Code (test code = 775832) Unit Number (test code [id number] = 4411) Blood Expiration Date & Time (test code = 637907) Status Information Issued (test code = 4412) Product Identification Platelets (test code = 4413) Product Code (test [id number] Performed at [facility] code = 4414) [facility] - [facility] Blood [address] [address]Uftb Free: [phone] A No. [id number] [facility] Packed RBC (in units), 1 Units 2021-12-07 07:24:01 Test Item Value Reference Range Interpretation Comments Cross Match Result Compatible (test code = 4409) ISBT Blood Type Code (test code = 879873) Unit Blood Type (test O Pos code = 4410) Unit Number (test [id number] code = 4411) Blood Expiration Date & Time (test code = 849742) Status Information Issued (test code = 4412) Product Red Blood Cells Identification (test code = 4413) Product Code (test P3996D54 Performed at [facility] code = 4414) [facility] - [facility] Blood [address] [place] [address]Izod Free: [phone] A No. [id number] [facility] WITHOUT [id number] 04:58:12 Test Item Value Reference Range Interpretation Comments WBC (test code = See_Comment LL [Automated message] 6690-2) The system [employer] generated this result transmitted ref erence range: 4.30 - 1 1.10 10*3/?L. The reference range was not used to int erpret this result as normal/abnormal . RBC (test code = 789-8) See_Comment L [Au tomated message] The system [employer] generated this result transmitted ref erence range: 3.93 - 5 .25 10*6/?L. The reference range was not used to int erpret this result as normal/abnormal . HGB (test code = 718-7) 6.0 g/dL 11.6-15.0 L HCT (test code = 16.7 % 35.7-45.2 L 4544-3) MCH (test code = 785-6) 31.3 pg 25.9-32.8 MCV (test code = 787-2) 87.0 fL 80.6-95.5 MCHC (test code = 35.9 g/dL 31.6-35.1 H 786-4) PLT (test code = 777-3) See_Comment LL [Au tomated message] The system [employer] generated this result transmitted ref erence range: 166 - 35 8 10*3/?L. The reference range was not used to int erpret this result as normal/abnormal . MPV (test code = 11.1 fL 9.5-12.9 49180-0) RDW-CV (test code = 13.6 % 12.0-15.5 788-0) RDW-SD (test code = 43.3 fL 39.0-49.9 26732-8) NRBC x10^3 (test code = <0.01 See_Comment [Au tomated message] 7229706482) The system [employer] generated this result transmitted ref erence range: 10*3/?L. The reference range was not used to int erpret this result as normal/abnormal . NRBC/100 WBC (test code See_Comment [Au tomated message] = 2280599666) The system [employer] generated this result transmitted ref erence range: 0.0 - 10 .0 /100 WBCs. The reference range was not used to int erpret this result as normal/abnormal . IPF % (test code = 4.9 % 1.3-7.7 The IPF v alue may not 9238081788) be reliable whe n the patient's plate let count is less t ley 10 x 10*3/uL due t o the higher imprecis ion of the IPF at low counts. Platele t count measured by fluorescence me thod. Lab Interpretation Abnormal (test code = 67316-9) [facility]ION[facility] [id number] 04:52:10 Test Item Value Reference Range Interpretation Comments IONIZED CA (test code = 3.30 mg/dL 4.50-5.30 L 2424861837) PH SERUM (test code = 0520312392) 7.35-7.45 Lab Interpretation (test code = Abnormal 12220-1) [facility] METABOLIC PANEL (NA, K, CL, CO2, GLUCOSE, BUN, CREATININE, CA)2021-12-07 04:31:21 Test Item Value Reference Range Interpretation Comments NA (test code = 136 mmol/L 135-145 9566967631) K (test code = 3.1 mmol/L 3.5-5.0 L 1549225766) CL (test code = 110 mmol/L 98-108 H 9637047401) CO2 TOTAL (test code = 19 mmol/L 23-31 L 7854603380) AGAP (test code = 2-16 5774706469) BUN (test code = 57 mg/dL 7-23 H 2042289470) GLUCOSE (test code = 234 mg/dL 70-110 H 7679749865) CREATININE (test code = 1.78 mg/dL 0.50-1.04 H 1968220335) CALCIUM (test code = 5.4 mg/dL 8.6-10.6 LL 9899814796) eGFR (test code = mL/min/1.73m2 6754093424) FINA (test code = FINA) Association of Glomerular Filtration Rate (GFR) and Staging of Kidney Disease* + --+ --+ ------+| GFR (mL/min/1.73 m2) ?| With Kidney Damage ?| ?Without Kidney Damage+ --------+ --------+ +| ?>90 ?| ?Stage one ?| ? Normal ?+ ---+ ---+ -------+| ?60-89 ?| ?Stage two ?| ? Decreased GFR ? + --+ --+ ------+| ?30-59 ?| ?Stage three ?| ? Stage three ? + --+ --+ ------+| ?15-29 ?| ?Stage four ? | ? Stage four ?+ ---+ ---+ -------+| ?<15 (or dialysis) ? ?| ?Stage five ? | ? Stage five ?+ ---+ ---+ -------+ *Each stage assumes the associated GFR level has been in effect for at least three months. ?Stages 1 to 5, with or without kidney disease, indicate chronic kidney disease. Notes: Determination of stages one and two (with eGFR >59mL/min/1.73 m2) requires estimation of kidney damage for at least three months as defined by structural or functional abnormalities of the kidney, manifested by either:Pathological abnormalities or Markers of kidney damage (including abnormalities in the composition of the blood or urine or abnormalities in imaging tests). Lab Interpretation Abnormal (test code = 61773-5) [facility] GLUCOSE (AUTOMATED)2021-12-07 01:21:49 Test Item Value Reference Range Interpretation Comments POCT GLU (test code = 2252709453) 277 mg/dL 70-110 H Lab Interpretation (test code = Abnormal 36530-8) [facility] [id number] 22:51:07 Test Item Value Reference Range Interpretation Comments IONIZED CA (test code = 3.20 mg/dL 4.50-5.30 L 6349140604) PH SERUM (test code = 2385571837) 7.35-7.45 Lab Interpretation (test code = Abnormal 38602-8) [facility] GLUCOSE (AUTOMATED)2021-12-06 21:34:52 Test Item Value Reference Range Interpretation Comments POCT GLU (test code = 6858615600) 270 mg/dL 70-110 H Lab Interpretation (test code = Abnormal 83646-8) [facility] WITHOUT [id number] 20:54:41 Test Item Value Reference Range Interpretation Comments WBC (test code = 6690-2) See_Comment LL [A utomated message] The system [employer] generated this result transmit allison reference range : 4.30 - 11.10 10*3/?L. The reference range was not used to interpret this result as normal/abnormal . RBC (test code = 789-8) See_Comment L [Au tomated message] The system [employer] generated this result transmit allison reference range : 3.93 - 5.25 10* 6/?L. The reference r willem was not used to interpret this result as normal/abnormal . HGB (test code = 718-7) 6.9 g/dL 11.6-15.0 L HCT (test code = 4544-3) 19.4 % 35.7-45.2 L MCH (test code = 785-6) 30.7 pg 25.9-32.8 MCV (test code = 787-2) 86.2 fL 80.6-95.5 MCHC (test code = 786-4) 35.6 g/dL 31.6-35.1 H PLT (test code = 777-3) See_Comment LL [Au tomated message] The system [employer] generated this result transmit allison reference range : 166 - 358 10*3/?L. The reference range was not used to interpret this result as normal/abnormal . MPV (test code = 11.9 fL 9.5-12.9 71717-3) RDW-CV (test code = 13.4 % 12.0-15.5 788-0) RDW-SD (test code = 42.0 fL 39.0-49.9 10409-8) NRBC x10^3 (test code = <0.01 See_Comment [Au tomated message] [id number]) The system [employer] generated this result transmit allison reference range : 10*3/?L. The reference range was not used to interpret this result as normal/abnormal . NRBC/100 WBC (test code See_Comment [Au tomated message] = 5919682997) The system [employer] generated this result transmit allison reference range : 0.0 - 10.0 /100 WBC s. The reference r willem was not used to interpret this result as normal/abnormal . IPF % (test code = 7995548427) Lab Interpretation (test Abnormal code = 13008-4) [facility] Draw level 24 hours post [id number] 20:50:18 Test Item Value Reference Range Interpretation Comments VANCO TROUGH (test code 8.3 ug/mL 10.0-20.0 L = 2402759467) FINA (test code = FINA) Toxic Range: ?>20 ug/mL 15-20 ug/mL is recommended for severe infection or when Vancomycin WILSON is greater than or equal to 2. Lab Interpretation (test Abnormal code = 44119-8) [facility] WITH [id number] 17:57:45 Test Item Value Reference Range Interpretation Comments WBC (test code = See_Comment LL [Automated 0590-2) message] The sy stem which generated this result transmitted reference range : 4.30 - 11.10 10*3/?L. The reference range was not used to interpret this result as normal/abnormal . RBC (test code = See_Comment L [Automated 789-8) message] The sy stem which generated this result transmitted reference range : 3.93 - 5.25 10*6/?L. The reference range was not used to interpret this result as normal/abnormal . HGB (test code = 6.9 g/dL 11.6-15.0 L 718-7) HCT (test code = 20.5 % 35.7-45.2 L 4544-3) MCV (test code = 89.9 fL 80.6-95.5 787-2) MCH (test code = 30.3 pg 25.9-32.8 785-6) MCHC (test code = 33.7 g/dL 31.6-35.1 786-4) RDW-SD (test code = 43.4 fL 39.0-49.9 13832-8) RDW-CV (test code = 13.2 % 12.0-15.5 788-0) PLT (test code = See_Comment LL [Automated 777-3) message] The sy stem which generated this result transmitted reference range : 166 - 358 10*3/ ?L. The reference r willem was not used to interpret this result as normal/abnormal . MPV (test code = 12.5 fL 9.5-12.9 28475-0) IPF % (test code = 1.2 % 1.3-7.7 L Platelet count [id number]) measured by fluorescence method. NRBC/100 WBC (test See_Comment [Automat ed code = 4941068089) message] The system which generated this result transmitted reference range : 0.0 - 10.0 /100 WBCs. The refer ence range was not u sed to interpret th is result as normal/abnormal . NRBC x10^3 (test code <0.01 See_Comment [Auto mated = 0616267668) message] The s ystem which generated this result transmitted reference range : 10*3/?L. The reference range was not used to interpret this result as normal/abnormal . LYMPH % (test code = 86 % 14-54 H 60271-9) MONO % (test code = 3 % 0-4 60795-9) EOS % (test code = 11 % 0-3 H 61301-5) ANC (test code = 0.00 10*3/uL 1.88-7.09 L 753-4) Lab Interpretation Abnormal (test code = 73606-8) [facility]2021-12-06 16:07:01 Test Item Value Reference Range Interpretation Comments POCT GLU (test code = 0785894102) 281 mg/dL 70-110 H Lab Interpretation (test code = Abnormal 22737-7) [facility] WITH [id number] 14:39:43 Test Item Value Reference Range Interpretation Comments WBC (test code = See_Comment LL [Automated 6690-2) message] The sy stem which generated this result transmitted reference range : 4.30 - 11.10 10*3/?L. The reference range was not used to interpret this result as normal/abnormal . RBC (test code = See_Comment L [Automated 789-8) message] The sy stem which generated this result transmitted reference range : 3.93 - 5.25 10*6/?L. The reference range was not used to interpret this result as normal/abnormal . HGB (test code = 5.8 g/dL 11.6-15.0 L 718-7) HCT (test code = 16.5 % 35.7-45.2 L 4544-3) MCV (test code = 89.2 fL 80.6-95.5 787-2) MCH (test code = 31.4 pg 25.9-32.8 785-6) MCHC (test code = 35.2 g/dL 31.6-35.1 H 786-4) RDW-SD (test code = 42.9 fL 39.0-49.9 92936-3) RDW-CV (test code = 13.2 % 12.0-15.5 788-0) PLT (test code = See_Comment LL [Automated 777-3) message] The sy stem which generated this result transmitted reference range : 166 - 358 10*3/ ?L. The reference r willem was not used to interpret this result as normal/abnormal . MPV (test code = 12.4 fL 9.5-12.9 71546-4) IPF % (test code = 0.9 % 1.3-7.7 L The IPF v alue may 0492164569) not be reliable when the patien t's platelet count is less than 10 x 10*3/uL due to the higher imprecis ion of the IPF at l ow counts. Platele t count measured by fluorescence method. NRBC/100 WBC (test See_Comment [Automat ed code = 5172755349) message] The system which generated this result transmitted reference range : 0.0 - 10.0 /100 WBCs. The refer ence range was not u sed to interpret th is result as normal/abnormal . NRBC x10^3 (test code See_Comment [Auto mated = 7296218128) message] The s ystem which generated this result transmitted reference range : 10*3/?L. The reference range was not used to interpret this result as normal/abnormal . LYMPH % (test code = 86 % 14-54 H 14901-5) MONO % (test code = 6 % 0-4 H 23202-9) EOS % (test code = 8 % 0-3 H 33755-8) ANC (test code = 0.00 10*3/uL 1.88-7.09 L 753-4) Lab Interpretation Abnormal (test code = 84974-5) [facility] METABOLIC PANEL (NA, K, CL, CO2, GLUCOSE, BUN, CREATININE, CA)2021-12-06 13:30:44 Test Item Value Reference Range Interpretation Comments NA (test code = 133 mmol/L 135-145 L 5277441830) K (test code = 3.3 mmol/L 3.5-5.0 L 4319909561) CL (test code = 109 mmol/L 98-108 H 4497507077) CO2 TOTAL (test code = 17 mmol/L 23-31 L 9341468340) AGAP (test code = 2-16 5918125468) BUN (test code = 62 mg/dL 7-23 H 2533588570) GLUCOSE (test code = 302 mg/dL 70-110 H 8164251495) CREATININE (test code = 1.77 mg/dL 0.50-1.04 H 6072036463) CALCIUM (test code = 5.0 mg/dL 8.6-10.6 LL 1006029099) eGFR (test code = mL/min/1.73m2 3874711979) FINA (test code = FINA) Association of Glomerular Filtration Rate (GFR) and Staging of Kidney Disease* + --+ --+ ------+| GFR (mL/min/1.73 m2) ?| With Kidney Damage ?| ?Without Kidney Damage+ --------+ --------+ +| ?>90 ?| ?Stage one ?| ? Normal ?+ ---+ ---+ -------+| ?60-89 ?| ?Stage two ?| ? Decreased GFR ? + --+ --+ ------+| ?30-59 ?| ?Stage three ?| ? Stage three ? + --+ --+ ------+| ?15-29 ?| ?Stage four ? | ? Stage four ?+ ---+ ---+ -------+| ?<15 (or dialysis) ? ?| ?Stage five ? | ? Stage five ?+ ---+ ---+ -------+ *Each stage assumes the associated GFR level has been in effect for at least three months. ?Stages 1 to 5, with or without kidney disease, indicate chronic kidney disease. Notes: Determination of stages one and two (with eGFR >59mL/min/1.73 m2) requires estimation of kidney damage for at least three months as defined by structural or functional abnormalities of the kidney, manifested by either:Pathological abnormalities or Markers of kidney damage (including abnormalities in the composition of the blood or urine or abnormalities in imaging tests). Lab Interpretation Abnormal (test code = 81267-7) [facility] GLUCOSE (AUTOMATED)2021-12-06 12:43:19 Test Item Value Reference Range Interpretation Comments POCT GLU (test code = 1568980877) 342 mg/dL 70-110 H Lab Interpretation (test code = Abnormal 10062-7) [facility] Culture - Peripheral Vein # 12:01:19 Test Item Value Reference Range Interpretation Comments Blood Culture-Aerobic No organisms No growth Previo us (test code = 13380-4) isolated prelim inary verified result was Culture In Progress on 12/01/2021 at 10 01 CDTPrevious preliminary verified result was No growth a t 24 hours on 12/02/2021 at 07 01 CDTPrevious preliminary verified result was No growth a t 48 hours on 12/03/2021 at 07 01 CDTPrevious preliminary verified result was No growth a t 72 hours on 12/04/2021 at 07 01 CDT Blood No organisms No growth Previous Culture-Anaerobic isolated preliminar y (test code = 05688-3) verifi ed result was Culture In Progress on 12/01/2021 at 10 01 CDTPrevious preliminary verified result was No growth a t 24 hours on 12/02/2021 at 07 01 CDTPrevious preliminary verified result was No growth a t 48 hours on 12/03/2021 at 07 01 CDTPrevious preliminary verified result was No growth a t 72 hours on 12/04/2021 at 07 01 CDT Lab Interpretation Normal (test code = 97864-8) [facility] Culture - Peripheral [id number] 12:01:19 Test Item Value Reference Range Interpretation Comments Blood Culture-Aerobic No organisms No growth Previo us (test code = 82055-7) isolated prelim inary verified result was Culture In Progress on 12/01/2021 at 10 01 CDTPrevious preliminary verified result was No growth a t 24 hours on 12/02/2021 at 07 01 CDTPrevious preliminary verified result was No growth a t 48 hours on 12/03/2021 at 07 01 CDTPrevious preliminary verified result was No growth a t 72 hours on 12/04/2021 at 07 01 CDT Blood No organisms No growth Previous Culture-Anaerobic isolated preliminar y (test code = 07788-5) verifi ed result was Culture In Progress on 12/01/2021 at 10 01 CDTPrevious preliminary verified result was No growth a t 24 hours on 12/02/2021 at 07 CDTPrevious preliminary verified result was No growth a t 48 hours on 12/03/2021 at 07 CDTPrevious preliminary verified result was No growth a t 72 hours on 12/04/2021 at 07 01 CDT Lab Interpretation Normal (test code = 01385-6) [facility] Packed RBC (in units), 1 Units 2021-12-06 10:14:34 Test Item Value Reference Range Interpretation Comments Cross Match Result Compatible (test code = 4409) ISBT Blood Type Code (test code = 945612) Unit Blood Type (test O Pos code = 4410) Unit Number (test [id number] code = 4411) Blood Expiration Date & Time (test code = 251074) Status Information Issued (test code = 4412) Product Red Blood Cells Identification (test code = 4413) Product Code (test [id number] Performed at [facility] code = 4414) Laboratory Services - [facility] Blood [address] [place] [address]Fbcn Free: [phone] A No. [id number] [facility] WITH [id number] 07:37:57 Test Item Value Reference Range Interpretation Comments WBC (test code = See_Comment LL [Automated message] 6690-2) The system [employer] generated this result transmitted ref erence range: 4.30 - 1 1.10 10*3/?L. The reference range was not used to int erpret this result as normal/abnormal . RBC (test code = 789-8) See_Comment L [Au tomated message] The system [employer] generated this result transmitted ref erence range: 3.93 - 5 .25 10*6/?L. The reference range was not used to int erpret this result as normal/abnormal . HGB (test code = 718-7) 5.4 g/dL 11.6-15.0 L HCT (test code = 15.6 % 35.7-45.2 L 4544-3) MCV (test code = 787-2) 89.7 fL 80.6-95.5 MCH (test code = 785-6) 31.0 pg 25.9-32.8 MCHC (test code = 34.6 g/dL 31.6-35.1 786-4) RDW-SD (test code = 43.8 fL 39.0-49.9 52801-7) RDW-CV (test code = 13.6 % 12.0-15.5 788-0) PLT (test code = 777-3) See_Comment LL [Au tomated message] The system [employer] generated this result transmitted ref erence range: 166 - 35 8 10*3/?L. The reference range was not used to int erpret this result as normal/abnormal . MPV (test code = Not Measure d 98224-6) IPF % (test code = 0.8 % 1.3-7.7 L Platelet count 2346934534) measured by fluorescence me thod. NRBC/100 WBC (test code See_Comment [Au tomated message] = 0170994773) The system [facility] generated this result transmitted ref erence range: 0.0 - 10 .0 /100 WBCs. The reference range was not used to int erpret this result as normal/abnormal . NRBC x10^3 (test code = <0.01 See_Comment [Au tomated message] 8349560390) The system [employer] generated this result transmitted ref erence range: 10*3/?L. The reference range was not used to int erpret this result as normal/abnormal . SEG % (test code = 1 % 33-76 L 51129-6) LYMPH % (test code = 82 % 14-54 H 69744-2) MONO % (test code = 2 % 0-4 61929-5) EOS % (test code = 15 % 0-3 H 49182-7) ANC (test code = 753-4) Unab le to calculate due to low whit e count Lab Interpretation Abnormal (test code = 58914-2) [facility]. METABOLIC PANEL (82388)2021-12-06 06:20:44 Test Item Value Reference Range Interpretation Comments NA (test code = 134 mmol/L 135-145 L 2555430610) K (test code = 3.8 mmol/L 3.5-5.0 Slight 8560407591) hemolysis CL (test code = 109 mmol/L 98-108 H 1925624046) CO2 TOTAL (test code 20 mmol/L 23-31 L = 6504276977) AGAP (test code = 2-16 0619434142) BUN (test code = 54 mg/dL 7-23 H Slight 6137201939) hemolysis GLUCOSE (test code = 186 mg/dL 70-110 H 5180679931) CREATININE (test code 1.55 mg/dL 0.50-1.04 H = 8116779388) TOTAL BILI (test code 0.9 mg/dL 0.1-1.1 = 9808674946) CALCIUM (test code = 4.6 mg/dL 8.6-10.6 LL 1337266257) T PROTEIN (test code 4.9 g/dL 6.3-8.2 L = 9466828217) ALBUMIN (test code = 2.1 g/dL 3.5-5.0 L 9762633339) ALK PHOS (test code = 35 U/L 34-122 Slight 0840217633) hemolysis ALTv (test code = 11 U/L 5-35 1742-6) AST(SGOT) (test code 32 U/L 13-40 Slight = 7327450608) hemolysis eGFR (test code = mL/min/1.73m2 4530730663) FINA (test code = FINA) Association of Glomerular Filtration Rate (GFR) and Staging of Kidney Disease* + -----+ --------+ +| GFR (mL/min/1.73 m2) ?| With Kidney Damage ?| ?Without Kidney Damage+ +------- +---- --+| ?>90 ?| ?Stage one ?| ? Normal ?+ ------+ ---------+--------- +| ?60-89 ?| ?Stage two ?| ? Decreased GFR ? + -----+ --------+ +| ?30-59 ?| ?Stage three ?| ? Stage three ? + -----+ --------+ +| ?15-29 ?| ?Stage four ? | ? Stage four ?+ ------+ ---------+--------- +| ?<15 (or dialysis) ? ?| ?Stage five ? | ? Stage five ?+ ------+ ---------+--------- + *Each stage assumes the associated GFR level has been in effect for at least three months. ?Stages 1 to 5, with or without kidney disease, indicate chronic kidney disease. Notes: Determination of stages one and two (with eGFR >59mL/min/1.73 m2) requires estimation of kidney damage for at least three months as defined by structural or functional abnormalities of the kidney, manifested by either:Pathological abnormalities or Markers of kidney damage (including abnormalities in the composition of the blood or urine or abnormalities in imaging tests). Lab Interpretation Abnormal (test code = 63110-6) [facility] 06:17:34 Test Item Value Reference Range Interpretation Comments MAGNESIUM (test code = 1883044808) 1.9 mg/dL 1.7-2.4 Lab Interpretation (test code = Normal 96780-9) [facility]IN2022-[facility]-27 04:12:45 Test Item Value Reference Range Interpretation Comments Procalcitonin (test 1.10 ng/mL <0.07 H code = 2261295890) FINA (test code = FINA) INTERPRETATION OF PROCALCITONIN RESULTS IN ADULTS >= 18 YEARS OF AGE Initiation and discontinuation of antibiotics on patients with suspected or confirmed Lower Respiratory Tract Infection in Adults >= 18 years of age. + +-------- --------+ + -----+|Procalcitonin |Interpretation ?|Antibiotic ? ? |Considerations ? |ng/mL ? | ?|recommendation | ? + +-------- --------+ + -----+| <0.1 ? | Bacterial ? ? ?| Strongly ? ? ?| ? | ?| infection very | discouraged ? | Overruling: ? | ?| unlikely ? ? ? | ? | ? Clinically unstable ? ? ? + +-------- --------+ + ? High risk for adverse ? ? | <0.25 ?| Bacterial ? ? ?| Discouraged ? | ? outcome ? | ?| infection ? ? ?| ? | ? SEE IMPORTANT NOTE ?| ?| unlikely ? ? ? | ? | ? + +-------- --------+ + -----+| >=0.25 ? ? ? | Bacterial ? ? ?| Encouraged ? ?| ? | ?| infection ? ? ?| ? | ? | ?| likely ? | ? | Consider treatment failure ?+ +------- ---------+ -+ if levels does not decrease | >0.5 ? | Bacterial ? ? ?| Strongly ? ? ?| appropriately ? | ?| infection very | encouraged ? ?| ? | ?| likely ? | ? | ? + +-------- --------+ + -----+ Discontinuation of antibiotics in high-acuity patients with suspected or confirmed sepsis in Adults >= 18 years of age. + +-------- --------+ + -----+|Procalcitonin |Interpretation ?|Antibiotic ? ? |Considerations ? |ng/mL ? | ?|recommendation | ? + +-------- --------+ + -----+| <0.25 ?| Bacterial ? ? ?| Strongly ? ? ?| ? | ?| infection very | discouraged ? | Overruling: ? | ?| unlikely ? ? ? | ? | ? Clinically unstable ? ? ? + +-------- --------+ + ? High risk for adverse ? ? | <0.5 or drop | Bacterial ? ? ?| Discouraged ? | ? outcome ? | >80% from ? ?| infection ? ? ?| ? | ? SEE IMPORTANT NOTE ?| highest PCT ?| unlikely ? ? ? | ? | ? | level ?| ?| ? | ? + +-------- --------+ + -----+| >=0.5 ?| Bacterial ? ? ?| Encouraged ? ?| ? | ?| infection ? ? ?| ? | ? | ?| likely ? | ? | Consider treatment failure ?+ +------- ---------+ -+ if levels does not decrease | >1.0 ? | Bacterial ? ? ?| Strongly ? ? ?| appropriately ? | ?| infection very | encouraged ? ?| ? | ?| likely ? | ? | ? + +-------- --------+ + -----+ Percentage of drop of Procalcitonin calculation for Discontinuation of antibiotics in high-acuity patients with suspected or confirmed sepsis in Adults >= 18 years of age. ? Procalcitonin highest{}-Procalcitonin current{}Delta Procalcitonin = x100% ? Procalcitonin current {} IMPORTANT NOTE: Procalcitonin may be elevated without bacterial infection by physiologic stress related to trauma, lopez, chronic dialysis, metastatic cancer, surgery in the past seven days, malaria, some fungal infections, and some forms of vasculitis. The interpretation algorithm may not apply to patients with immunosuppression (equivalent of >10 mg of prednisone daily), HIV with CD4 cell count < 350 cells/mm3, active malignancy on systemic chemotherapy, solid organ transplant or hematopoietic stem cell transplantation, or hospital acquired pneumonia. Additionally, some clinical trials of procalcitonin have excluded patients with shock requiring vasopressor use, acute respiratory failure requiring mechanical ventilation, or those with known lung abscess/empyema. For further information please refer to:[email or web address] Lab Interpretation Abnormal (test code = 74375-1) [facility] Center[facility] Platelets (in units): 1 Units~Indication: 1) Platelets < 10,000 for bleeding [id number] 02:21:17 Test Item Value Reference Range Interpretation Comments Unit Blood Type (test O Pos code = 4410) ISBT Blood Type Code (test code = 571625) Unit Number (test code [id number] = 4411) Blood Expiration Date & Time (test code = 324426) Status Information Issued (test code = 4412) Product Identification Platelets (test code = 4413) Product Code (test [id number] Performed at [facility] code = 4414) Laboratory Services - [facility] Blood Jebp79[address] [facility] [address]Biyp Free: [phone] A No. [id number] [facility] GLUCOSE (AUTOMATED)2021-12-06 01:51:04 Test Item Value Reference Range Interpretation Comments POCT GLU (test code = 5386934368) 176 mg/dL 70-110 H Lab Interpretation (test code = Abnormal 10462-2) [facility] GLUCOSE (AUTOMATED)2021-12-05 22:02:21 Test Item Value Reference Range Interpretation Comments POCT GLU (test code = 5087490745) 130 mg/dL 70-110 H Lab Interpretation (test code = Abnormal 19657-1) [facility] GLUCOSE (AUTOMATED)2021-12-05 17:41:32 Test Item Value Reference Range Interpretation Comments POCT GLU (test code = 1565587451) 178 mg/dL 70-110 H Lab Interpretation (test code = Abnormal 21010-4) [facility] CenterType [facility] Screen - ONCE [id number] 16:45:28 Test Item Value Reference Range Interpretation Comments ABO & RH (test code O Positive Performe d at [facility] = 20) Laboratory Serv [facility] Blood Bank[address], [place] [address]Uzkp Free: [phone] A No. [id number] IAT (test code = Negative Performed a t [facility] 1185) Laboratory Serv [facility] Blood Bank[address], [place] [address]Rnds Free: [phone] A No. [id number] [facility] GLUCOSE (AUTOMATED)2021-12-05 12:44:52 Test Item Value Reference Range Interpretation Comments POCT GLU (test code = 2506231306) 156 mg/dL 70-110 H Lab Interpretation (test code = Abnormal 71923-3) [facility] WITH [id number] 11:46:34 Test Item Value Reference Range Interpretation Comments WBC (test code = See_Comment LL [Automated 6690-2) message] The sy stem which generated this result transmitted reference range : 4.30 - 11.10 10*3/?L. The reference range was not used to interpret this result as normal/abnormal . RBC (test code = See_Comment L [Automated 789-8) message] The sy stem which generated this result transmitted reference range : 3.93 - 5.25 10*6/?L. The reference range was not used to interpret this result as normal/abnormal . HGB (test code = 7.1 g/dL 11.6-15.0 L 718-7) HCT (test code = 20.1 % 35.7-45.2 L 4544-3) MCV (test code = 88.9 fL 80.6-95.5 787-2) MCH (test code = 31.4 pg 25.9-32.8 785-6) MCHC (test code = 35.3 g/dL 31.6-35.1 H 786-4) RDW-SD (test code = 42.5 fL 39.0-49.9 22531-3) RDW-CV (test code = 13.1 % 12.0-15.5 788-0) PLT (test code = See_Comment LL [Automated 777-3) message] The sy stem which generated this result transmitted reference range : 166 - 358 10*3/ ?L. The reference r willem was not used to interpret this result as normal/abnormal . MPV (test code = 9.9 fL 9.5-12.9 48076-4) IPF % (test code = 0.8 % 1.3-7.7 L The IPF v alue may 2389165086) not be reliable when the patien t's platelet count is less than 10 x 10*3/uL due to the higher imprecis ion of the IPF at l ow counts. Platele t count measured by fluorescence method. NRBC/100 WBC (test See_Comment [Automat ed code = 9868397682) message] The system which generated this result transmitted reference range : 0.0 - 10.0 /100 WBCs. The refer ence range was not u sed to interpret th is result as normal/abnormal . NRBC x10^3 (test code <0.01 See_Comment [Auto mated = 3645804426) message] The s ystem which generated this result transmitted reference range : 10*3/?L. The reference range was not used to interpret this result as normal/abnormal . GRAN MAT (NEUT) % 2.8 % (test code = 770-8) IMM GRAN % (test code 0.00 % = 8333895449) LYMPH % (test code = 88.9 % 736-9) MONO % (test code = 0.0 % 5905-5) EOS % (test code = 8.3 % 713-8) BASO % (test code = 0.0 % 706-2) GRAN MAT x10^3(ANC) <0.03 1.88-7.09 L (test code = 4050272976) IMM GRAN x10^3 (test <0.03 0.00-0.06 code = 2489184821) LYMPH x10^3 (test code 0.32 10*3/uL 1.32-3.29 L = 731-0) MONO x10^3 (test code <0.03 0.33-0.92 L = 742-7) EOS x10^3 (test code = 0.03 10*3/uL 0.03-0.39 711-2) BASO x10^3 (test code <0.03 0.01-0.07 = 704-7) Lab Interpretation Abnormal (test code = 73342-3) [facility] GLUCOSE (AUTOMATED)2021-12-05 10:17:45 Test Item Value Reference Range Interpretation Comments POCT GLU (test code = 9220855507) 158 mg/dL 70-110 H Lab Interpretation (test code = Abnormal 29641-2) [facility] GLUCOSE (AUTOMATED)2021-12-05 05:48:51 Test Item Value Reference Range Interpretation Comments POCT GLU (test code = 5176890130) 154 mg/dL 70-110 H Lab Interpretation (test code = Abnormal 50848-6) [facility] GLUCOSE (AUTOMATED)2021-12-05 01:17:12 Test Item Value Reference Range Interpretation Comments POCT GLU (test code = 2958325201) 171 mg/dL 70-110 H Lab Interpretation (test code = Abnormal 02714-6) [facility] GLUCOSE (AUTOMATED)2021-12-04 21:33:40 Test Item Value Reference Range Interpretation Comments POCT GLU (test code = 9252898507) 175 mg/dL 70-110 H Lab Interpretation (test code = Abnormal 73890-6) [facility] 16:55:04 Test Item Value Reference Range Interpretation Comments METHOTREX (test code <0.050 umol/L = 0477201479) FINA (test code = THERAPEUTIC RANGE = FINA) VARIABLE (DEPENDS ON TREATMENT PROTOCOL)TOXIC RANGE = GREATER THAN 10.00 UMOL/L @ 24 HRS ?GREATER THAN ?1.00 UMOL/L @ 48 HRS ?GREATER THAN ?0.10 UMOL/L @ 72 HRS Test developed and characteristics determined by [facility] Laboratory Services. [facility] GLUCOSE (AUTOMATED)2021-12-04 16:28:19 Test Item Value Reference Range Interpretation Comments POCT GLU (test code = 9986665072) 190 mg/dL 70-110 H Lab Interpretation (test code = Abnormal 86542-5) [facility] GLUCOSE (AUTOMATED)2021-12-04 12:43:03 Test Item Value Reference Range Interpretation Comments POCT GLU (test code = 9554730109) 202 mg/dL 70-110 H Lab Interpretation (test code = Abnormal 72564-5) [facility] [id number] 11:43:45 Test Item Value Reference Range Interpretation Comments WBC (test code = See_Comment LL [Automated 9190-2) message] The sy stem which generated this result transmitted reference range : 4.30 - 11.10 10*3/?L. The reference range was not used to interpret this result as normal/abnormal . RBC (test code = See_Comment L [Automated 169-8) message] The sy stem which generated this result transmitted reference range : 3.93 - 5.25 10*6/?L. The reference range was not used to interpret this result as normal/abnormal . HGB (test code = 8.3 g/dL 11.6-15.0 L 718-7) HCT (test code = 25.0 % 35.7-45.2 L 4544-3) MCV (test code = 92.6 fL 80.6-95.5 787-2) MCH (test code = 30.7 pg 25.9-32.8 785-6) MCHC (test code = 33.2 g/dL 31.6-35.1 786-4) RDW-SD (test code = 45.6 fL 39.0-49.9 54896-5) RDW-CV (test code = 13.6 % 12.0-15.5 788-0) PLT (test code = See_Comment LL [Automated 777-3) message] The sy stem which generated this result transmitted reference range : 166 - 358 10*3/ ?L. The reference r willem was not used to interpret this result as normal/abnormal . MPV (test code = 10.8 fL 9.5-12.9 78181-2) IPF % (test code = 2.1 % 1.3-7.7 Platelet count [id number]) measured by fluorescence method. NRBC/100 WBC (test See_Comment [Automat ed code = 9998544363) message] The system which generated this result transmitted reference range : 0.0 - 10.0 /100 WBCs. The refer ence range was not u sed to interpret th is result as normal/abnormal . NRBC x10^3 (test code <0.01 See_Comment [Auto mated = 5695319705) message] The s ystem which generated this result transmitted reference range : 10*3/?L. The reference range was not used to interpret this result as normal/abnormal . SEG % (test code = 4 % 33-76 L 39517-1) LYMPH % (test code = 83 % 14-54 H 33708-3) MONO % (test code = 6 % 0-4 H 28798-2) EOS % (test code = 7 % 0-3 H 06695-9) ANC (test code = 0.01 10*3/uL 1.88-7.09 L 753-4) Lab Interpretation Abnormal (test code = 42027-0) [facility] METABOLIC PANEL (NA, K, CL, CO2, GLUCOSE, BUN, CREATININE, CA)2021-12-04 11:33:23 Test Item Value Reference Range Interpretation Comments NA (test code = 140 mmol/L 135-145 3086513769) K (test code = 3.3 mmol/L 3.5-5.0 L 6168660342) CL (test code = 112 mmol/L 98-108 H 5888630011) CO2 TOTAL (test code = 21 mmol/L 23-31 L 7296207664) AGAP (test code = 2-16 2895215393) BUN (test code = 45 mg/dL 7-23 H 9515540511) GLUCOSE (test code = 176 mg/dL 70-110 H 0471602014) CREATININE (test code = 1.48 mg/dL 0.50-1.04 H 4858794748) CALCIUM (test code = 5.1 mg/dL 8.6-10.6 LL 5566554952) eGFR (test code = mL/min/1.73m2 3121592947) FINA (test code = FINA) Association of Glomerular Filtration Rate (GFR) and Staging of Kidney Disease* + --+ --+ ------+| GFR (mL/min/1.73 m2) ?| With Kidney Damage ?| ?Without Kidney Damage+ --------+ --------+ +| ?>90 ?| ?Stage one ?| ? Normal ?+ ---+ ---+ -------+| ?60-89 ?| ?Stage two ?| ? Decreased GFR ? + --+ --+ ------+| ?30-59 ?| ?Stage three ?| ? Stage three ? + --+ --+ ------+| ?15-29 ?| ?Stage four ? | ? Stage four ?+ ---+ ---+ -------+| ?<15 (or dialysis) ? ?| ?Stage five ? | ? Stage five ?+ ---+ ---+ -------+ *Each stage assumes the associated GFR level has been in effect for at least three months. ?Stages 1 to 5, with or without kidney disease, indicate chronic kidney disease. Notes: Determination of stages one and two (with eGFR >59mL/min/1.73 m2) requires estimation of kidney damage for at least three months as defined by structural or functional abnormalities of the kidney, manifested by either:Pathological abnormalities or Markers of kidney damage (including abnormalities in the composition of the blood or urine or abnormalities in imaging tests). Lab Interpretation Abnormal (test code = 22384-1) [facility] GLUCOSE (AUTOMATED)2021-12-04 09:39:15 Test Item Value Reference Range Interpretation Comments POCT GLU (test code = 4035464755) 175 mg/dL 70-110 H Lab Interpretation (test code = Abnormal 37508-0) [facility] GLUCOSE (AUTOMATED)2021-12-04 09:14:38 Test Item Value Reference Range Interpretation Comments POCT GLU (test code = 1814855938) 177 mg/dL 70-110 H Lab Interpretation (test code = Abnormal 19307-1) [facility] GLUCOSE (AUTOMATED)2021-12-04 06:26:04 Test Item Value Reference Range Interpretation Comments POCT GLU (test code = 1241463018) 214 mg/dL 70-110 H Lab Interpretation (test code = Abnormal 58883-6) [facility] GLUCOSE (AUTOMATED)2021-12-04 03:09:21 Test Item Value Reference Range Interpretation Comments POCT GLU (test code = 3546976074) 210 mg/dL 70-110 H Lab Interpretation (test code = Abnormal 72474-3) [facility] GLUCOSE (AUTOMATED)2021-12-03 22:02:35 Test Item Value Reference Range Interpretation Comments POCT GLU (test code = 4943891499) 222 mg/dL 70-110 H Lab Interpretation (test code = Abnormal 26989-0) [facility] GLUCOSE (AUTOMATED)2021-12-03 17:13:52 Test Item Value Reference Range Interpretation Comments POCT GLU (test code = 8337681358) 185 mg/dL 70-110 H Lab Interpretation (test code = Abnormal 76015-9) [facility] GLUCOSE (AUTOMATED)2021-12-03 15:33:09 Test Item Value Reference Range Interpretation Comments POCT GLU (test code = 3675094236) 187 mg/dL 70-110 H Lab Interpretation (test code = Abnormal 50405-4) [facility] P[facility] RBC (in units), 1 Units 2021-12-03 14:24:52 Test Item Value Reference Range Interpretation Comments Cross Match Result Compatible (test code = 4409) ISBT Blood Type Code (test code = 708224) Unit Blood Type (test O Pos code = 4410) Unit Number (test [id number] code = 4411) Blood Expiration Date & Time (test code = 974855) Status Information Issued (test code = 4412) Product Red Blood Cells Identification (test code = 4413) Product Code (test [id number] Performed at [facility] code = 4414) Laboratory Services - [facility] Blood [address] [place] [address]Aloc Free: [phone] A No. [id number] [facility]2021-12-03 13:14:18 Test Item Value Reference Range Interpretation Comments POCT GLU (test code = 1233443276) 196 mg/dL 70-110 H Lab Interpretation (test code = Abnormal 80194-9) [facility] WITH [id number] 11:40:17 Test Item Value Reference Range Interpretation Comments WBC (test code = See_Comment LL [Automated 6690-2) message] The sy stem which generated this result transmitted reference range : 4.30 - 11.10 10*3/?L. The reference range was not used to interpret this result as normal/abnormal . RBC (test code = See_Comment L [Automated 789-8) message] The sy stem which generated this result transmitted reference range : 3.93 - 5.25 10*6/?L. The reference range was not used to interpret this result as normal/abnormal . HGB (test code = 6.6 g/dL 11.6-15.0 L 718-7) HCT (test code = 19.6 % 35.7-45.2 L 4544-3) MCV (test code = 93.8 fL 80.6-95.5 787-2) MCH (test code = 31.6 pg 25.9-32.8 785-6) MCHC (test code = 33.7 g/dL 31.6-35.1 786-4) RDW-SD (test code = 44.3 fL 39.0-49.9 27956-0) RDW-CV (test code = 13.2 % 12.0-15.5 788-0) PLT (test code = See_Comment LL [Automated 777-3) message] The sy stem which generated this result transmitted reference range : 166 - 358 10*3/ ?L. The reference r willem was not used to interpret this result as normal/abnormal . MPV (test code = 11.0 fL 9.5-12.9 67600-1) IPF % (test code = 2.5 % 1.3-7.7 Platelet count 5176158536) measured by fluorescence method. NRBC/100 WBC (test See_Comment [Automat ed code = 3437595700) message] The system which generated this result transmitted reference range : 0.0 - 10.0 /100 WBCs. The refer ence range was not u sed to interpret th is result as normal/abnormal . NRBC x10^3 (test code <0.01 See_Comment [Auto mated = 1548835862) message] The s ystem which generated this result transmitted reference range : 10*3/?L. The reference range was not used to interpret this result as normal/abnormal . SEG % (test code = 5 % 33-76 L 08149-1) LYMPH % (test code = 78 % 14-54 H 95321-8) EOS % (test code = 17 % 0-3 H 90353-8) ANC (test code = 0.03 10*3/uL 1.88-7.09 L 753-4) DOHLE BODIES (test Present A code = 7792-5) Lab Interpretation Abnormal (test code = 78727-9) [facility] METABOLIC PANEL (NA, K, CL, CO2, GLUCOSE, BUN, CREATININE, CA)2021-12-03 11:18:49 Test Item Value Reference Range Interpretation Comments NA (test code = 144 mmol/L 135-145 9799090245) K (test code = 3.5 mmol/L 3.5-5.0 3443613327) CL (test code = 116 mmol/L 98-108 H 2851941239) CO2 TOTAL (test code = 22 mmol/L 23-31 L 8669316466) AGAP (test code = 2-16 5576705724) BUN (test code = 54 mg/dL 7-23 H 3588881769) GLUCOSE (test code = 158 mg/dL 70-110 H 9133888265) CREATININE (test code = 1.60 mg/dL 0.50-1.04 H 7230114384) CALCIUM (test code = 6.1 mg/dL 8.6-10.6 L 0222991444) eGFR (test code = mL/min/1.73m2 9888116561) FINA (test code = FINA) Association of Glomerular Filtration Rate (GFR) and Staging of Kidney Disease* + --+ --+ ------+| GFR (mL/min/1.73 m2) ?| With Kidney Damage ?| ?Without Kidney Damage+ --------+ --------+ +| ?>90 ?| ?Stage one ?| ? Normal ?+ ---+ ---+ -------+| ?60-89 ?| ?Stage two ?| ? Decreased GFR ? + --+ --+ ------+| ?30-59 ?| ?Stage three ?| ? Stage three ? + --+ --+ ------+| ?15-29 ?| ?Stage four ? | ? Stage four ?+ ---+ ---+ -------+| ?<15 (or dialysis) ? ?| ?Stage five ? | ? Stage five ?+ ---+ ---+ -------+ *Each stage assumes the associated GFR level has been in effect for at least three months. ?Stages 1 to 5, with or without kidney disease, indicate chronic kidney disease. Notes: Determination of stages one and two (with eGFR >59mL/min/1.73 m2) requires estimation of kidney damage for at least three months as defined by structural or functional abnormalities of the kidney, manifested by either:Pathological abnormalities or Markers of kidney damage (including abnormalities in the composition of the blood or urine or abnormalities in imaging tests). Lab Interpretation Abnormal (test code = 71275-8) [facility] 11:18:49 Test Item Value Reference Range Interpretation Comments MAGNESIUM (test code = 0134060912) 2.3 mg/dL 1.7-2.4 Lab Interpretation (test code = Normal 82188-0) [facility]21-[facility]-03 10:31:14 Test Item Value Reference Range Interpretation Comments POCT GLU (test code = 5211854054) 167 mg/dL 70-110 H Lab Interpretation (test code = Abnormal 72264-7) [facility] GLUCOSE (AUTOMATED)2021-12-03 06:54:17 Test Item Value Reference Range Interpretation Comments POCT GLU (test code = 4483589236) 177 mg/dL 70-110 H Lab Interpretation (test code = Abnormal 01625-4) [facility] GLUCOSE (AUTOMATED)2021-12-03 04:53:06 Test Item Value Reference Range Interpretation Comments POCT GLU (test code = 0866780745) 182 mg/dL 70-110 H Lab Interpretation (test code = Abnormal 63248-9) [facility] GLUCOSE (AUTOMATED)2021-12-03 04:05:43 Test Item Value Reference Range Interpretation Comments POCT GLU (test code = 3827641575) 191 mg/dL 70-110 H Lab Interpretation (test code = Abnormal 53003-3) [facility] GLUCOSE (AUTOMATED)2021-12-03 03:01:07 Test Item Value Reference Range Interpretation Comments POCT GLU (test code = 7556585539) 209 mg/dL 70-110 H Lab Interpretation (test code = Abnormal 57459-5) [facility] GLUCOSE (AUTOMATED)2021-12-03 02:14:25 Test Item Value Reference Range Interpretation Comments POCT GLU (test code = 8720686908) 226 mg/dL 70-110 H Lab Interpretation (test code = Abnormal 79103-6) [facility] Metabolc Panel (Na, K, Cl, CO2, Glucose, BUN, Creatinine, Ca)2021-12-02 23:28:32 Test Item Value Reference Range Interpretation Comments NA (test code = 144 mmol/L 135-145 6040907134) K (test code = 3.8 mmol/L 3.5-5.0 4719878558) CL (test code = 114 mmol/L 98-108 H 5118431596) CO2 TOTAL (test code = 23 mmol/L 23-31 3571399901) AGAP (test code = 2-16 6743606932) BUN (test code = 66 mg/dL 7-23 H 2651292408) GLUCOSE (test code = 232 mg/dL 70-110 H 9251003425) CREATININE (test code = 1.77 mg/dL 0.50-1.04 H 3905919830) CALCIUM (test code = 6.1 mg/dL 8.6-10.6 L 7149247059) eGFR (test code = mL/min/1.73m2 7064229068) FINA (test code = FINA) Association of Glomerular Filtration Rate (GFR) and Staging of Kidney Disease* + --+ --+ ------+| GFR (mL/min/1.73 m2) ?| With Kidney Damage ?| ?Without Kidney Damage+ --------+ --------+ +| ?>90 ?| ?Stage one ?| ? Normal ?+ ---+ ---+ -------+| ?60-89 ?| ?Stage two ?| ? Decreased GFR ? + --+ --+ ------+| ?30-59 ?| ?Stage three ?| ? Stage three ? + --+ --+ ------+| ?15-29 ?| ?Stage four ? | ? Stage four ?+ ---+ ---+ -------+| ?<15 (or dialysis) ? ?| ?Stage five ? | ? Stage five ?+ ---+ ---+ -------+ *Each stage assumes the associated GFR level has been in effect for at least three months. ?Stages 1 to 5, with or without kidney disease, indicate chronic kidney disease. Notes: Determination of stages one and two (with eGFR >59mL/min/1.73 m2) requires estimation of kidney damage for at least three months as defined by structural or functional abnormalities of the kidney, manifested by either:Pathological abnormalities or Markers of kidney damage (including abnormalities in the composition of the blood or urine or abnormalities in imaging tests). Lab Interpretation Abnormal (test code = 53960-9) [facility] 23:02:42 Test Item Value Reference Range Interpretation Comments POCT GLU (test code = 0764531035) 244 mg/dL 70-110 H Lab Interpretation (test code = Abnormal 72496-1) [facility] 22:40:23 Test Item Value Reference Range Interpretation Comments METHOTREX (test code 0.050 umol/L = 9084862362) FINA (test code = THERAPEUTIC RANGE = FINA) VARIABLE (DEPENDS ON TREATMENT PROTOCOL)TOXIC RANGE = GREATER THAN 10.00 UMOL/L @ 24 HRS ?GREATER THAN ?1.00 UMOL/L @ 48 HRS ?GREATER THAN ?0.10 UMOL/L @ 72 HRS Test developed and characteristics determined by [facility] Laboratory Services. [facility] GLUCOSE (AUTOMATED)2021-12-02 19:55:08 Test Item Value Reference Range Interpretation Comments POCT GLU (test code = 2314496487) 160 mg/dL 70-110 H Lab Interpretation (test code = Abnormal 34199-5) [facility] GLUCOSE (AUTOMATED)2021-12-02 19:08:13 Test Item Value Reference Range Interpretation Comments POCT GLU (test code = 3726174791) >600 70-110 HH Lab Interpretation (test code = Abnormal 30678-1) [facility] GLUCOSE (AUTOMATED)2021-12-02 19:08:13 Test Item Value Reference Range Interpretation Comments POCT GLU (test code = 4470563217) >600 70-110 HH Lab Interpretation (test code = Abnormal 73282-9) [facility] GLUCOSE (AUTOMATED)2021-12-02 19:08:08 Test Item Value Reference Range Interpretation Comments POCT GLU (test code = 4127068030) >600 70-110 HH Lab Interpretation (test code = Abnormal 99675-4) [facility] Center[facility] CALCIUM [id number] 18:54:48 Test Item Value Reference Range Interpretation Comments PTH-INTACT (test code = 30.2 pg/mL 12.0-88.0 5994992200) PTH-CA Interpretation Furthe r clinical (test code = 5659024720) zachary a needed for interpretation. CALCIUM (test code = 6.2 mg/dL 8.6-10.6 L 2208910595) Lab Interpretation (test Abnormal code = 01798-3) [facility] GLUCOSE (AUTOMATED)2021-12-02 18:28:22 Test Item Value Reference Range Interpretation Comments POCT GLU (test code = 9496852289) 176 mg/dL 70-110 H Lab Interpretation (test code = Abnormal 22513-2) [facility] GLUCOSE (AUTOMATED)2021-12-02 16:59:34 Test Item Value Reference Range Interpretation Comments POCT GLU (test code = 9855506437) 214 mg/dL 70-110 H Lab Interpretation (test code = Abnormal 11917-0) [facility]-REACTIVE [id number] 16:19:10 Test Item Value Reference Range Interpretation Comments CRP (test code = 3292329990) 17.1 mg/dL <0.8 H Lab Interpretation (test code = Abnormal 88624-9) [facility] GLUCOSE (AUTOMATED)2021-12-02 16:14:05 Test Item Value Reference Range Interpretation Comments POCT GLU (test code = 5619863705) 221 mg/dL 70-110 H Lab Interpretation (test code = Abnormal 19187-8) [facility] GLUCOSE (AUTOMATED)2021-12-02 15:23:01 Test Item Value Reference Range Interpretation Comments POCT GLU (test code = 8098152131) 209 mg/dL 70-110 H Lab Interpretation (test code = Abnormal 11230-9) [facility] Metabolic Panel (Na, K, Cl, CO2, Glucose, BUN, Creatinine, Ca)2021-12-02 14:42:22 Test Item Value Reference Range Interpretation Comments NA (test code = 144 mmol/L 135-145 8879688309) K (test code = 4.0 mmol/L 3.5-5.0 Slight 0816615807) hemolysis CL (test code = 115 mmol/L 98-108 H 9731157145) CO2 TOTAL (test code 25 mmol/L 23-31 = 4376677681) AGAP (test code = 2-16 2226946287) BUN (test code = 76 mg/dL 7-23 H Slight 6214727441) hemolysis GLUCOSE (test code = 225 mg/dL 70-110 H 8607093138) CREATININE (test code 1.96 mg/dL 0.50-1.04 H = 5794231566) CALCIUM (test code = 6.2 mg/dL 8.6-10.6 L 1710987402) eGFR (test code = mL/min/1.73m2 5930437551) FINA (test code = FINA) Association of Glomerular Filtration Rate (GFR) and Staging of Kidney Disease* + -----+ --------+ +| GFR (mL/min/1.73 m2) ?| With Kidney Damage ?| ?Without Kidney Damage+ +------- +---- --+| ?>90 ?| ?Stage one ?| ? Normal ?+ ------+ ---------+--------- +| ?60-89 ?| ?Stage two ?| ? Decreased GFR ? + -----+ --------+ +| ?30-59 ?| ?Stage three ?| ? Stage three ? + -----+ --------+ +| ?15-29 ?| ?Stage four ? | ? Stage four ?+ ------+ ---------+--------- +| ?<15 (or dialysis) ? ?| ?Stage five ? | ? Stage five ?+ ------+ ---------+--------- + *Each stage assumes the associated GFR level has been in effect for at least three months. ?Stages 1 to 5, with or without kidney disease, indicate chronic kidney disease. Notes: Determination of stages one and two (with eGFR >59mL/min/1.73 m2) requires estimation of kidney damage for at least three months as defined by structural or functional abnormalities of the kidney, manifested by either:Pathological abnormalities or Markers of kidney damage (including abnormalities in the composition of the blood or urine or abnormalities in imaging tests). Lab Interpretation Abnormal (test code = 64295-9) [facility] GLUCOSE (AUTOMATED)2021-12-02 14:10:31 Test Item Value Reference Range Interpretation Comments POCT GLU (test code = 7923197200) 239 mg/dL 70-110 H Lab Interpretation (test code = Abnormal 69380-1) [facility]AP[facility]GLOBIN, [id number] 13:57:00 Test Item Value Reference Range Interpretation Comments HAPTOGLOB (test code = 6074455798) 219 mg/dL 16-200 H Lab Interpretation (test code = Abnormal 73728-3) [facility] GLUCOSE (AUTOMATED)2021-12-02 13:06:29 Test Item Value Reference Range Interpretation Comments POCT GLU (test code = 5018853768) 237 mg/dL 70-110 H Lab Interpretation (test code = Abnormal 89137-8) [facility] GLUCOSE (AUTOMATED)2021-12-02 12:14:49 Test Item Value Reference Range Interpretation Comments POCT GLU (test code = 8250009187) 235 mg/dL 70-110 H Lab Interpretation (test code = Abnormal 26773-6) [facility] (NA, K, CL, CO2, GLUCOSE, BUN, CREATININE, CA)2021-12-02 11:59:53 Test Item Value Reference Range Interpretation Comments NA (test code = 140 mmol/L 135-145 7265187910) K (test code = 3.7 mmol/L 3.5-5.0 1827565412) CL (test code = 113 mmol/L 98-108 H 9389392014) CO2 TOTAL (test code = 24 mmol/L 23-31 2757407238) AGAP (test code = 2-16 6928934019) BUN (test code = 79 mg/dL 7-23 H 5753959612) GLUCOSE (test code = 206 mg/dL 70-110 H 4925393104) CREATININE (test code = 2.02 mg/dL 0.50-1.04 H 1708863330) CALCIUM (test code = 6.0 mg/dL 8.6-10.6 L 1435463502) eGFR (test code = mL/min/1.73m2 7294032358) FINA (test code = FINA) Association of Glomerular Filtration Rate (GFR) and Staging of Kidney Disease* + --+ --+ ------+| GFR (mL/min/1.73 m2) ?| With Kidney Damage ?| ?Without Kidney Damage+ --------+ --------+ +| ?>90 ?| ?Stage one ?| ? Normal ?+ ---+ ---+ -------+| ?60-89 ?| ?Stage two ?| ? Decreased GFR ? + --+ --+ ------+| ?30-59 ?| ?Stage three ?| ? Stage three ? + --+ --+ ------+| ?15-29 ?| ?Stage four ? | ? Stage four ?+ ---+ ---+ -------+| ?<15 (or dialysis) ? ?| ?Stage five ? | ? Stage five ?+ ---+ ---+ -------+ *Each stage assumes the associated GFR level has been in effect for at least three months. ?Stages 1 to 5, with or without kidney disease, indicate chronic kidney disease. Notes: Determination of stages one and two (with eGFR >59mL/min/1.73 m2) requires estimation of kidney damage for at least three months as defined by structural or functional abnormalities of the kidney, manifested by either:Pathological abnormalities or Markers of kidney damage (including abnormalities in the composition of the blood or urine or abnormalities in imaging tests). Lab Interpretation Abnormal (test code = 53462-8) [facility] 11:09:28 Test Item Value Reference Range Interpretation Comments POCT GLU (test code = 0415682172) 217 mg/dL 70-110 H Lab Interpretation (test code = Abnormal 75457-6) [facility] with [id number] 11:07:37 Test Item Value Reference Range Interpretation Comments WBC (test code = See_Comment LL [Automated 6690-2) message] The sy stem which generated this result transmitted reference range : 4.30 - 11.10 10*3/?L. The reference range was not used to interpret this result as normal/abnormal . RBC (test code = See_Comment L [Automated 789-8) message] The sy stem which generated this result transmitted reference range : 3.93 - 5.25 10*6/?L. The reference range was not used to interpret this result as normal/abnormal . HGB (test code = 7.6 g/dL 11.6-15.0 L 718-7) HCT (test code = 22.6 % 35.7-45.2 L 4544-3) MCV (test code = 92.6 fL 80.6-95.5 787-2) MCH (test code = 31.1 pg 25.9-32.8 785-6) MCHC (test code = 33.6 g/dL 31.6-35.1 786-4) RDW-SD (test code = 43.1 fL 39.0-49.9 97804-0) RDW-CV (test code = 13.0 % 12.0-15.5 788-0) PLT (test code = See_Comment LL [Automated 777-3) message] The sy stem which generated this result transmitted reference range : 166 - 358 10*3/ ?L. The reference r willem was not used to interpret this result as normal/abnormal . MPV (test code = 11.6 fL 9.5-12.9 91980-0) IPF % (test code = 3.8 % 1.3-7.7 Platelet count 0723897862) measured by fluorescence method. NRBC/100 WBC (test See_Comment [Automat ed code = 2680839025) message] The system which generated this result transmitted reference range : 0.0 - 10.0 /100 WBCs. The refer ence range was not u sed to interpret th is result as normal/abnormal . NRBC x10^3 (test code <0.01 See_Comment [Auto mated = [id number]) message] The s ystem which generated this result transmitted reference range : 10*3/?L. The reference range was not used to interpret this result as normal/abnormal . SEG % (test code = 20 % 33-76 L 87335-6) LYMPH % (test code = 73 % 14-54 H 10166-6) MONO % (test code = 7 % 0-4 H 82793-4) ANC (test code = 0.07 10*3/uL 1.88-7.09 L 753-4) Lab Interpretation Abnormal (test code = 75316-4) [facility] GLUCOSE (AUTOMATED)2021-12-02 10:14:19 Test Item Value Reference Range Interpretation Comments POCT GLU (test code = 7284210205) 191 mg/dL 70-110 H Lab Interpretation (test code = Abnormal 88991-6) [facility] GLUCOSE (AUTOMATED)2021-12-02 09:13:29 Test Item Value Reference Range Interpretation Comments POCT GLU (test code = 8946092573) 165 mg/dL 70-110 H Lab Interpretation (test code = Abnormal 77956-1) [facility] (Na, K, Cl, CO2, Glucose, BUN, Creatinine, Ca)2021-12-02 09:04:15 Test Item Value Reference Range Interpretation Comments NA (test code = 143 mmol/L 135-145 1849954629) K (test code = 3.7 mmol/L 3.5-5.0 3219189273) CL (test code = 113 mmol/L 98-108 H 9850854440) CO2 TOTAL (test code = 24 mmol/L 23-31 3656067943) AGAP (test code = 2-16 2344545484) BUN (test code = 83 mg/dL 7-23 H 8681703609) GLUCOSE (test code = 121 mg/dL 70-110 H 2508417799) CREATININE (test code = 2.12 mg/dL 0.50-1.04 H 0773290215) CALCIUM (test code = 6.2 mg/dL 8.6-10.6 L 0230915192) eGFR (test code = mL/min/1.73m2 0706138822) FINA (test code = FINA) Association of Glomerular Filtration Rate (GFR) and Staging of Kidney Disease* + --+ --+ ------+| GFR (mL/min/1.73 m2) ?| With Kidney Damage ?| ?Without Kidney Damage+ --------+ --------+ +| ?>90 ?| ?Stage one ?| ? Normal ?+ ---+ ---+ -------+| ?60-89 ?| ?Stage two ?| ? Decreased GFR ? + --+ --+ ------+| ?30-59 ?| ?Stage three ?| ? Stage three ? + --+ --+ ------+| ?15-29 ?| ?Stage four ? | ? Stage four ?+ ---+ ---+ -------+| ?<15 (or dialysis) ? ?| ?Stage five ? | ? Stage five ?+ ---+ ---+ -------+ *Each stage assumes the associated GFR level has been in effect for at least three months. ?Stages 1 to 5, with or without kidney disease, indicate chronic kidney disease. Notes: Determination of stages one and two (with eGFR >59mL/min/1.73 m2) requires estimation of kidney damage for at least three months as defined by structural or functional abnormalities of the kidney, manifested by either:Pathological abnormalities or Markers of kidney damage (including abnormalities in the composition of the blood or urine or abnormalities in imaging tests). Lab Interpretation Abnormal (test code = 12721-9) [facility]15 Test Item Value Reference Range Interpretation Comments ALBUMIN (test code = 9465465255) 2.6 g/dL 3.5-5.0 L Lab Interpretation (test code = Abnormal 92010-6) [facility]20[facility] 09:04:15 Test Item Value Reference Range Interpretation Comments MAGNESIUM (test code = 6619075140) 2.6 mg/dL 1.7-2.4 H Lab Interpretation (test code = Abnormal 95597-2) [facility]20[facility] 09:04:15 Test Item Value Reference Range Interpretation Comments PHOSPHORUS (test code = 8247130320) 4.6 mg/dL 2.5-5.0 Lab Interpretation (test code = Normal 73801-8) [facility] Met[facility] Panel (Na, K, Cl, CO2, Glucose, BUN, Creatinine, Ca)2021-12-02 08:25:17 Test Item Value Reference Range Interpretation Comments NA (test code = 143 mmol/L 135-145 7092981397) K (test code = 3.2 mmol/L 3.5-5.0 L 5645011952) CL (test code = 112 mmol/L 98-108 H 7623806900) CO2 TOTAL (test code = 22 mmol/L 23-31 L 9440600850) AGAP (test code = 2-16 8223175647) BUN (test code = 85 mg/dL 7-23 H 3835461934) GLUCOSE (test code = 113 mg/dL 70-110 H 4692657220) CREATININE (test code = 2.23 mg/dL 0.50-1.04 H 7717838613) CALCIUM (test code = 6.3 mg/dL 8.6-10.6 L 7537704564) eGFR (test code = mL/min/1.73m2 6093455102) FINA (test code = FINA) Association of Glomerular Filtration Rate (GFR) and Staging of Kidney Disease* + --+ --+ ------+| GFR (mL/min/1.73 m2) ?| With Kidney Damage ?| ?Without Kidney Damage+ --------+ --------+ +| ?>90 ?| ?Stage one ?| ? Normal ?+ ---+ ---+ -------+| ?60-89 ?| ?Stage two ?| ? Decreased GFR ? + --+ --+ ------+| ?30-59 ?| ?Stage three ?| ? Stage three ? + --+ --+ ------+| ?15-29 ?| ?Stage four ? | ? Stage four ?+ ---+ ---+ -------+| ?<15 (or dialysis) ? ?| ?Stage five ? | ? Stage five ?+ ---+ ---+ -------+ *Each stage assumes the associated GFR level has been in effect for at least three months. ?Stages 1 to 5, with or without kidney disease, indicate chronic kidney disease. Notes: Determination of stages one and two (with eGFR >59mL/min/1.73 m2) requires estimation of kidney damage for at least three months as defined by structural or functional abnormalities of the kidney, manifested by either:Pathological abnormalities or Markers of kidney damage (including abnormalities in the composition of the blood or urine or abnormalities in imaging tests). Lab Interpretation Abnormal (test code = 87625-9) [facility] GLUCOSE (AUTOMATED)2021-12-02 08:06:22 Test Item Value Reference Range Interpretation Comments POCT GLU (test code = 4726944856) 125 mg/dL 70-110 H Lab Interpretation (test code = Abnormal 76082-6) [facility] GLUCOSE (AUTOMATED)2021-12-02 07:11:48 Test Item Value Reference Range Interpretation Comments POCT GLU (test code = 9703788746) 88 mg/dL 70-110 Lab Interpretation (test code = Normal 83524-4) [facility] GLUCOSE (AUTOMATED)2021-12-02 05:55:50 Test Item Value Reference Range Interpretation Comments POCT GLU (test code = 7110390667) 104 mg/dL 70-110 Lab Interpretation (test code = Normal 00703-0) [facility] GLUCOSE (AUTOMATED)2021-12-02 05:14:40 Test Item Value Reference Range Interpretation Comments POCT GLU (test code = 0483003589) 120 mg/dL 70-110 H Lab Interpretation (test code = Abnormal 48497-4) [facility] Center[facility]par Platelets (in units): 1 Units~Indication: 6) Other - (specify in comments); Special Requirements: Leukoreduced, [id number] 04:51:39 Test Item Value Reference Range Interpretation Comments Unit Blood Type (test A Pos code = 4410) ISBT Blood Type Code (test code = 776389) Unit Number (test code [id number] = 4411) Blood Expiration Date & Time (test code = 154637) Status Information Issued (test code = 4412) Product Identification Platelets (test code = 4413) Product Code (test V6568S52 Performed at [facility] code = 4414) Laboratory Services - [facility] Blood [address] [place] [address]74[address] Free: [phone] A No. [id number] [facility] GLUCOSE (AUTOMATED)2021-12-02 03:58:37 Test Item Value Reference Range Interpretation Comments POCT GLU (test code = 8674367520) 140 mg/dL 70-110 H Lab Interpretation (test code = Abnormal 62702-9) [facility] GLUCOSE (AUTOMATED)2021-12-02 03:08:37 Test Item Value Reference Range Interpretation Comments POCT GLU (test code = 9506639715) 178 mg/dL 70-110 H Lab Interpretation (test code = Abnormal 96083-7) [facility] CenterBetahydroxy-Huaujotu0886-75-65 02:57:55 Test Item Value Reference Range Interpretation Comments BOH (test code = 0.4 mmol/L 2227505527) FINA (test code = Normal Ranges: ? ? FINA) Nonfasting ? Less than 0.1 mmol/L ? ? Overnight Fast ? ? ? Less than 0.4 mmol/L ? ? Fasting (1-2 weeks) ?6-8 mmol/L Test developed and characteristics determined by [facility] Laboratory Services. [facility] Metabolic Panel (Na, K, Cl, CO2, Glucose, BUN, Creatinine, Ca)2021-12-02 02:48:36 Test Item Value Reference Range Interpretation Comments NA (test code = 140 mmol/L 135-145 9557575055) K (test code = 3.3 mmol/L 3.5-5.0 L 0519797187) CL (test code = 106 mmol/L 98-108 7779479757) CO2 TOTAL (test code = 24 mmol/L 23-31 1946039739) AGAP (test code = 2-16 0132218075) BUN (test code = 91 mg/dL 7-23 H 4476149821) GLUCOSE (test code = 185 mg/dL 70-110 H 3761076841) CREATININE (test code = 2.37 mg/dL 0.50-1.04 H 4972605773) CALCIUM (test code = 6.5 mg/dL 8.6-10.6 L 8067499414) eGFR (test code = mL/min/1.73m2 6437357373) FINA (test code = FINA) Association of Glomerular Filtration Rate (GFR) and Staging of Kidney Disease* + --+ --+ ------+| GFR (mL/min/1.73 m2) ?| With Kidney Damage ?| ?Without Kidney Damage+ --------+ --------+ +| ?>90 ?| ?Stage one ?| ? Normal ?+ ---+ ---+ -------+| ?60-89 ?| ?Stage two ?| ? Decreased GFR ? + --+ --+ ------+| ?30-59 ?| ?Stage three ?| ? Stage three ? + --+ --+ ------+| ?15-29 ?| ?Stage four ? | ? Stage four ?+ ---+ ---+ -------+| ?<15 (or dialysis) ? ?| ?Stage five ? | ? Stage five ?+ ---+ ---+ -------+ *Each stage assumes the associated GFR level has been in effect for at least three months. ?Stages 1 to 5, with or without kidney disease, indicate chronic kidney disease. Notes: Determination of stages one and two (with eGFR >59mL/min/1.73 m2) requires estimation of kidney damage for at least three months as defined by structural or functional abnormalities of the kidney, manifested by either:Pathological abnormalities or Markers of kidney damage (including abnormalities in the composition of the blood or urine or abnormalities in imaging tests). Lab Interpretation Abnormal (test code = 42811-7) [facility] CenterVITAMIN B12, [id number] 02:27:52 Test Item Value Reference Range Interpretation Comments VIT B12 (test code = 490 pg/mL 240-930 0303036012) FINA (test code = FINA) Biotin has been reported to cause a positive bias, interpret results relative to patient's use of biotin. Lab Interpretation (test Normal code = 80865-5) [facility] GLUCOSE (AUTOMATED)2021-12-02 02:17:56 Test Item Value Reference Range Interpretation Comments POCT GLU (test code = 2206483805) 211 mg/dL 70-110 H Lab Interpretation (test code = Abnormal 12751-4) [facility] CenterHEPATITIS B SURFACE [id number] 01:27:48 Test Item Value Reference Range Interpretation Comments HBsAB (test code = Negative 4001303699) HBsAb mIU/mL Semi-Quantitative (test code = 7883130391) FINA (test code = Interpretation: FINA) ?Hepatitis B Surface Antibody ? Negative - Patient is considered to be not immune to infection with HBV. ? ? Positive - Anti-HBs detected at greater than or equal to 12 mIU/mL. ?Patient is considered to be immune to infection with HBV. ? [facility] CenterHB ANTIBODY (IGM & IGG)2021-12-02 01:27:48 Test Item Value Reference Range Interpretation Comments HBC (test code = 6653256519) Negative HBC Semi-Quantitative (test code = 6970212979) [facility] CenterHCV [id number] 01:27:48 Test Item Value Reference Range Interpretation Comments HCV Ab (test code = 72963-7) Negative HCV Semi-Quantitative (test code = 59002-3) [facility] CenterABORH Confirmation (Lab Only)2021-12-02 01:06:47 Test Item Value Reference Range Interpretation Comments ABO & RH (test code O Positive Performe d at [facility] = 20) Laboratory Serv [facility] Blood Bank[address] [place] [address]Smkd Free: [phone] A No. [id number] [facility] GLUCOSE (AUTOMATED)2021-12-02 01:05:22 Test Item Value Reference Range Interpretation Comments POCT GLU (test code = 3315392579) 269 mg/dL 70-110 H Lab Interpretation (test code = Abnormal 81230-1) [facility] CenterHIV 1/2 AG-AB WITH [id number] 00:39:06 Test Item Value Reference Range Interpretation Comments HIV Negative Negative Semi-quantitative (test code = 33628-9) FINA (test code = Non-reactive for HIV-1 FINA) antigen and HIV-1/HIV-2 antibodies. ?No laboratory evidence of HIV infection. ?Repeat in 2-4 weeks if acute HIV infection is suspected. [facility] CenterHEPATITIS B SURFACE [id number] 00:29:45 Test Item Value Reference Range Interpretation Comments HBsAg Semi-Quantitative (test code = Negative Negative 5195-3) [facility] CenterType and Screen - ONCE [id number] 00:19:48 Test Item Value Reference Range Interpretation Comments ABO & RH (test code O Positive Performe d at [facility] = 20) Laboratory Serv [facility] Blood Bank[address] [place] [address]Pwbl Free: [phone] A No. [id number] IAT (test code = Negative Performed a t [facility] 1185) Laboratory Serv [facility] Blood Bank[address] [place] [address]Igmi Free: [phone] A No. [id number] [facility] Metabolic Panel (Na, K, Cl, CO2, Glucose, BUN, Creatinine, Ca)2021-12-02 00:10:04 Test Item Value Reference Range Interpretation Comments NA (test code = 138 mmol/L 135-145 3193055886) K (test code = 3.2 mmol/L 3.5-5.0 L 2826485888) CL (test code = 103 mmol/L 98-108 3960635316) CO2 TOTAL (test code = 24 mmol/L 23-31 5838084908) AGAP (test code = 2-16 8157489850) BUN (test code = 93 mg/dL 7-23 H 8882345925) GLUCOSE (test code = 355 mg/dL 70-110 H 1423482788) CREATININE (test code = 2.56 mg/dL 0.50-1.04 H 0141712572) CALCIUM (test code = 6.6 mg/dL 8.6-10.6 L 8527144260) eGFR (test code = mL/min/1.73m2 2355653910) FINA (test code = FINA) Association of Glomerular Filtration Rate (GFR) and Staging of Kidney Disease* + --+ --+ ------+| GFR (mL/min/1.73 m2) ?| With Kidney Damage ?| ?Without Kidney Damage+ --------+ --------+ +| ?>90 ?| ?Stage one ?| ? Normal ?+ ---+ ---+ -------+| ?60-89 ?| ?Stage two ?| ? Decreased GFR ? + --+ --+ ------+| ?30-59 ?| ?Stage three ?| ? Stage three ? + --+ --+ ------+| ?15-29 ?| ?Stage four ? | ? Stage four ?+ ---+ ---+ -------+| ?<15 (or dialysis) ? ?| ?Stage five ? | ? Stage five ?+ ---+ ---+ -------+ *Each stage assumes the associated GFR level has been in effect for at least three months. ?Stages 1 to 5, with or without kidney disease, indicate chronic kidney disease. Notes: Determination of stages one and two (with eGFR >59mL/min/1.73 m2) requires estimation of kidney damage for at least three months as defined by structural or functional abnormalities of the kidney, manifested by either:Pathological abnormalities or Markers of kidney damage (including abnormalities in the composition of the blood or urine or abnormalities in imaging tests). Lab Interpretation Abnormal (test code = 81703-2) [facility] GLUCOSE (AUTOMATED)2021-12-02 00:05:47 Test Item Value Reference Range Interpretation Comments POCT GLU (test code = 9101468105) 357 mg/dL 70-110 H Lab Interpretation (test code = Abnormal 12127-7) [facility] GLUCOSE (AUTOMATED)2021-12-01 23:03:55 Test Item Value Reference Range Interpretation Comments POCT GLU (test code = 4793179048) 435 mg/dL 70-110 H Lab Interpretation (test code = Abnormal 51411-2) [facility] GLUCOSE (AUTOMATED)2021-12-01 22:11:05 Test Item Value Reference Range Interpretation Comments POCT GLU (test code = 8482713834) 500 mg/dL 70-110 HH Lab Interpretation (test code = Abnormal 73418-9) [facility] CenterFERRITIN [id number] 21:57:21 Test Item Value Reference Range Interpretation Comments FERRITIN (test code = 460.0 ng/mL 11.0-264.0 H 0621519488) FINA (test code = FINA) Biotin has been reported to cause a negative bias, interpret results relative to patient's use of biotin. Lab Interpretation (test Abnormal code = 53369-0) [facility] CenterIRON [id number] 21:47:56 Test Item Value Reference Range Interpretation Comments IRON (test code = 157 ug/dL 50-160 Slight hem olysis 9677940049) TIBC (test code = 249 ug/dL 250-410 L 1301744399) % FE SAT (test code = 63 % 20-50 H 2091708606) Lab Interpretation (test Abnormal code = 85503-7) [facility] CenterHEPATIC FUNCTION PANEL (50334) (ALB,T.PRO,BILI T,BU/BC,ALT,AST,ALK PHOS)2021-12-01 21:18:48 Test Item Value Reference Range Interpretation Comments TOTAL BILI (test code = 6252619385) 1.0 mg/dL 0.1-1.1 BILI UNCON (test code = 9939275837) 0.3 mg/dL 0.1-1.1 BILI CONJ (test code = 9731014486) 0.0 mg/dL 0.0-0.3 T PROTEIN (test code = 4463259926) 6.1 g/dL 6.3-8.2 L ALBUMIN (test code = 5948410994) 3.1 g/dL 3.5-5.0 L ALK PHOS (test code = 6522166453) 82 U/L 34-122 ALTv (test code = 1742-6) 20 U/L 5-35 AST(SGOT) (test code = 4213054166) 29 U/L 13-40 Lab Interpretation (test code = Abnormal 41673-2) [facility] CenterURIC [id number] 21:18:48 Test Item Value Reference Range Interpretation Comments URIC ACID (test code = 1219551741) 9.9 mg/dL 2.9-6.0 H Lab Interpretation (test code = Abnormal 63382-5) [facility] CenterOsmolality [id number] 21:11:01 Test Item Value Reference Range Interpretation Comments OSMOLALITY (test code = See_Comment HH [Au tomated message] 2692-2) The system [employer] generated this result transmitted ref erence range: 278 - 30 5 mOsm/kg. The reference range was not used to int erpret this result as normal/abnormal . Lab Interpretation (test Abnormal code = 97705-3) [facility] METABOLIC PANEL (NA, K, CL, CO2, GLUCOSE, BUN, CREATININE, CA)2021-12-01 21:10:25 Test Item Value Reference Range Interpretation Comments NA (test code = 132 mmol/L 135-145 L 8596763801) K (test code = 3.9 mmol/L 3.5-5.0 9962138497) CL (test code = 97 mmol/L 98-108 L 6227784305) CO2 TOTAL (test code = 21 mmol/L 23-31 L 3942092992) AGAP (test code = 2-16 8346688606) BUN (test code = 101 mg/dL 7-23 H 5106706568) GLUCOSE (test code = 726 mg/dL 70-110 HH 1235882020) CREATININE (test code = 2.70 mg/dL 0.50-1.04 H 2267660400) CALCIUM (test code = 6.6 mg/dL 8.6-10.6 L 0620507412) eGFR (test code = mL/min/1.73m2 1419601601) FINA (test code = FINA) Association of Glomerular Filtration Rate (GFR) and Staging of Kidney Disease* + --+ --+ ------+| GFR (mL/min/1.73 m2) ?| With Kidney Damage ?| ?Without Kidney Damage+ --------+ --------+ +| ?>90 ?| ?Stage one ?| ? Normal ?+ ---+ ---+ -------+| ?60-89 ?| ?Stage two ?| ? Decreased GFR ? + --+ --+ ------+| ?30-59 ?| ?Stage three ?| ? Stage three ? + --+ --+ ------+| ?15-29 ?| ?Stage four ? | ? Stage four ?+ ---+ ---+ -------+| ?<15 (or dialysis) ? ?| ?Stage five ? | ? Stage five ?+ ---+ ---+ -------+ *Each stage assumes the associated GFR level has been in effect for at least three months. ?Stages 1 to 5, with or without kidney disease, indicate chronic kidney disease. Notes: Determination of stages one and two (with eGFR >59mL/min/1.73 m2) requires estimation of kidney damage for at least three months as defined by structural or functional abnormalities of the kidney, manifested by either:Pathological abnormalities or Markers of kidney damage (including abnormalities in the composition of the blood or urine or abnormalities in imaging tests). Lab Interpretation Abnormal (test code = 41133-7) [facility] CenterIRON [id number] 20:59:43 Test Item Value Reference Range Interpretation Comments IRON (test code = 2761272296) 143 ug/dL 50-160 TIBC (test code = 3060950329) 251 ug/dL 250-410 % FE SAT (test code = 3178790511) 57 % 20-50 H Lab Interpretation (test code = Abnormal 67878-0) [facility] CenterTOTAL IRON BINDING [id number] 20:59:43 Test Item Value Reference Range Interpretation Comments TIBC (test code = 8678341449) 251 ug/dL 250-410 Lab Interpretation (test code = Normal 05319-5) [facility] CenterGlycosylated Hemoglobin (A1C)2021-12-01 20:56:03 Test Item Value Reference Range Interpretation Comments HGB A1C (test code = 11.4 % 4.0-5.7 H 4548-4) FINA (test code = FINA) Reference RangesNormal: <5.7%Prediabetes: 5.7 - 6.4%Diabetes: > 6.5% Lab Interpretation (test Abnormal code = 14225-3) [facility] CenterMagnesium [id number] 20:47:01 Test Item Value Reference Range Interpretation Comments MAGNESIUM (test code = 4655957798) 2.5 mg/dL 1.7-2.4 H Lab Interpretation (test code = Abnormal 19032-4) [facility] CenterPhosphorus [id number] 20:47:01 Test Item Value Reference Range Interpretation Comments PHOSPHORUS (test code = 6064336338) 7.4 mg/dL 2.5-5.0 H Lab Interpretation (test code = Abnormal 70916-8) [facility] CenterLACTATE [id number] 20:24:15 Test Item Value Reference Range Interpretation Comments LDH (test code = 8071447764) 440 U/L 300-600 Lab Interpretation (test code = Normal 30337-2) [facility] CenterBETA [id number] 20:23:15 Test Item Value Reference Range Interpretation Comments BOH (test code = 2.4 mmol/L 8268373258) FINA (test code = Normal Ranges: ? ? FINA) Nonfasting ? Less than 0.1 mmol/L ? ? Overnight Fast ? ? ? Less than 0.4 mmol/L ? ? Fasting (1-2 weeks) ?6-8 mmol/L Test developed and characteristics determined by [facility] Laboratory Services. [facility] CenterRETICULOCYTES [id number] 19:22:07 Test Item Value Reference Range Interpretation Comments RETIC Count Automated 0.39 % 0.51-1.90 L (test code = 2515946801) RETIC Absolute Count <0.0100 See_Comment L [Autom ated message] (test code = 6337048028) The system which generated this result transmitted ref erence range: 0.0230 - 0.0950 10*6/?L. The reference range was not used to int erpret this result as normal/abnormal . IRF % (test code = 4.90 % 2.10-12.60 3408332565) RETIC-HE (test code = 42.9 pg 28.1-35.8 H 1340857036) Lab Interpretation (test Abnormal code = 89566-5) [facility] CenterAc[facility] Care Arterial Blood Gas.2021-12-01 17:37:26 Test Item Value Reference Range Interpretation Comments PH (test code = 2) 7.35-7.45 PCO2 (test code = See_Comment [Automat ed message] 6615181107) The system [employer] generated this result transmitted ref erence range: 35 - 45 mmHg. The reference r willem was not used to interpret this result as normal/abnor mal. PO2 (test code = See_Comment L [Automated message] 3726923462) The system [employer] generated this result transmitted ref erence range: 80 - 100 mmHg. The reference r willem was not used to interpret this result as normal/abnor mal. HCO3 (test code = See_Comment L [Automate d message] 6751260685) The system [employer] generated this result transmitted ref erence range: 22 - 26 mEq/L. The reference r willem was not used to interpret this result as normal/abnor mal. BE (test code = See_Comment L [Automated message] 3716360896) The system [employer] generated this result transmitted ref erence range: -3.0 - 3 .0 mEq/L. The refe rence range was not u sed to interpret this result as normal/abnor mal. Lab Interpretation (test Abnormal code = 71771-6) [facility] METABOLIC PANEL (NA, K, CL, CO2, GLUCOSE, BUN, CREATININE, CA)2021-12-01 15:00:17 Test Item Value Reference Range Interpretation Comments NA (test code = 132 mmol/L 135-145 L 5557984303) K (test code = 4.5 mmol/L 3.5-5.0 4836883798) CL (test code = 94 mmol/L 98-108 L 5724689722) CO2 TOTAL (test code = 20 mmol/L 23-31 L 3629106704) AGAP (test code = 2-16 H 0327962422) BUN (test code = 101 mg/dL 7-23 H 7945540155) GLUCOSE (test code = 671 mg/dL 70-110 HH 7950990554) CREATININE (test code = 2.83 mg/dL 0.50-1.04 H 0383093963) CALCIUM (test code = 6.9 mg/dL 8.6-10.6 L 6117403452) eGFR (test code = mL/min/1.73m2 9287699285) FINA (test code = FINA) Association of Glomerular Filtration Rate (GFR) and Staging of Kidney Disease* + --+ --+ ------+| GFR (mL/min/1.73 m2) ?| With Kidney Damage ?| ?Without Kidney Damage+ --------+ --------+ +| ?>90 ?| ?Stage one ?| ? Normal ?+ ---+ ---+ -------+| ?60-89 ?| ?Stage two ?| ? Decreased GFR ? + --+ --+ ------+| ?30-59 ?| ?Stage three ?| ? Stage three ? + --+ --+ ------+| ?15-29 ?| ?Stage four ? | ? Stage four ?+ ---+ ---+ -------+| ?<15 (or dialysis) ? ?| ?Stage five ? | ? Stage five ?+ ---+ ---+ -------+ *Each stage assumes the associated GFR level has been in effect for at least three months. ?Stages 1 to 5, with or without kidney disease, indicate chronic kidney disease. Notes: Determination of stages one and two (with eGFR >59mL/min/1.73 m2) requires estimation of kidney damage for at least three months as defined by structural or functional abnormalities of the kidney, manifested by either:Pathological abnormalities or Markers of kidney damage (including abnormalities in the composition of the blood or urine or abnormalities in imaging tests). Lab Interpretation Abnormal (test code = 46789-0) [facility]cos[facility]oglobin (A1C)2021-12-01 13:48:59 Test Item Value Reference Range Interpretation Comments HGB A1C (test code = 11.8 % 4.0-5.7 H 4548-4) FINA (test code = FINA) Reference RangesNormal: <5.7%Prediabetes: 5.7 - 6.4%Diabetes: > 6.5% Lab Interpretation (test Abnormal code = 50775-4) [facility] CenterCBC WITHOUT [id number] 11:58:50 Test Item Value Reference Range Interpretation Comments WBC (test code = See_Comment LL [Automated message] 6690-2) The system [employer] generated this result transmitted ref erence range: 4.30 - 1 1.10 10*3/?L. The reference range was not used to int erpret this result as normal/abnormal . RBC (test code = 789-8) See_Comment L [Au tomated message] The system [employer] generated this result transmitted ref erence range: 3.93 - 5 .25 10*6/?L. The reference range was not used to int erpret this result as normal/abnormal . HGB (test code = 718-7) 8.2 g/dL 11.6-15.0 L HCT (test code = 24.6 % 35.7-45.2 L 4544-3) MCH (test code = 785-6) 31.9 pg 25.9-32.8 MCV (test code = 787-2) 95.7 fL 80.6-95.5 H MCHC (test code = 33.3 g/dL 31.6-35.1 786-4) PLT (test code = 777-3) See_Comment LL [Au tomated message] The system [employer] h generated this result transmitted ref erence range: 166 - 35 8 10*3/?L. The reference range was not used to int erpret this result as normal/abnormal . MPV (test code = Not Measure d 36878-6) RDW-CV (test code = 13.3 % 12.0-15.5 788-0) RDW-SD (test code = 45.8 fL 39.0-49.9 15282-9) NRBC x10^3 (test code = <0.01 See_Comment [Au tomated message] [id number]) The system [employer] generated this result transmitted ref erence range: 10*3/?L. The reference range was not used to int erpret this result as normal/abnormal . NRBC/100 WBC (test code See_Comment [Au tomated message] = 4671194158) The [facility] generated this result transmitted ref erence range: 0.0 - 10 .0 /100 WBCs. The reference range was not used to int erpret this result as normal/abnormal . IPF % (test code = 8.9 % 1.3-7.7 H Platelet count [id number]) measured by fluorescence me thod. Lab Interpretation Abnormal (test code = 87170-2) [facility] CenterProthrombin Time / [id number] 11:29:17 Test Item Value Reference Range Interpretation Comments PROTIME PATIENT (test See_Comment [Auto mated message] code = 5964-2) The system [employer] [facility] generated this result transmitted ref erence range: 10.1 - 1 2.6 Seconds. The re ference range was not u sed to interpret this result as normal/abnor mal. INR (test code = 6301-6) Nor mal INR <1.1; Warfarin Therap eutic range 2.0 to 3. 0 or 2.5 to 3.5, dep ending upon the indica tions. Lab Interpretation (test Normal code = 47741-6) [facility] CenteraPTT2022-06-22 11:29:17 Test Item Value Reference Range Interpretation Comments APTT Patient (test code = See_Comment [ Automated message] 3173-2) The system whic h generated this result transmitted ref erence range: 26 - 36 Seconds. The re ference range was not u sed to interpret this result as normal/abnor mal. Lab Interpretation (test Normal code = 06622-7) [facility] CenterCBC and [id number] 11:00:00 Test Item Value Reference Range Interpretation Comments WHITE BLOOD CELL See_Comment [Automated COUNT (test code = message] The 6690-2) system which generated this result transmitted reference range : 3.8 - 10.8 Thousand/uL. Th e reference range was not used to interpret this result as normal/abnormal . RED BLOOD CELL COUNT See_Comment [Autom ated (test code = 789-8) message] The system which generated this result transmitted reference range : 3.80 - 5.10 Million/uL. The reference range was not used to interpret this result as normal/abnormal . HEMOGLOBIN (test 12.5 g/dL 11.7-15.5 code = 718-7) HEMATOCRIT (test 39.2 % 35.0-45.0 code = 4544-3) MCV (test code = 92 fL 80.0-100.0 787-2) MCH (test code = 29.3 pg 27.0-33.0 785-6) MCHC (test code = 31.9 g/dL 32.0-36.0 L 786-4) RDW (test code = 15 % 11.0-15.0 788-0) PLATELET COUNT (test See_Comment [Autom ated code = 777-3) message] The system which generated this result transmitted reference range : 140 - 400 Thousand/uL. Th e reference range was not used to interpret this result as normal/abnormal . MPV (test code = 12.1 fL 7.5-12.5 776-5) ABSOLUTE NEUTROPHILS See_Comment [Autom ated (test code = 751-8) message] The system which generated this result transmitted reference range : 1500 - 7800 cells/uL. The reference range was not used to interpret this result as normal/abnormal . ABSOLUTE LYMPHOCYTES See_Comment [Autom ated (test code = 731-0) message] The system which generated this result transmitted reference range : 850 - 3900 cells/uL. The reference range was not used to interpret this result as normal/abnormal . ABSOLUTE MONOCYTES See_Comment [Automat ed (test code = 742-7) message] The system which generated this result transmitted reference range : 200 - 950 cells/uL. The reference range was not used to interpret this result as normal/abnormal . ABSOLUTE EOSINOPHILS See_Comment [Autom ated (test code = 711-2) message] The system which generated this result transmitted reference range : 15 - 500 cells/uL. The reference range was not used to interpret this result as normal/abnormal . ABSOLUTE BASOPHILS See_Comment [Automat ed (test code = 704-7) message] The system which generated this result transmitted reference range : 0 - 200 cells/u L. The reference range was not used to interpr et this result as normal/abnormal . NEUTROPHILS (test 62.6 % code = 770-8) LYMPHOCYTES (test 25.3 % code = 736-9) MONOCYTES (test code 7.6 % = 5905-5) EOSINOPHILS (test 3.1 % code = 713-8) BASOPHILS (test code 1.4 % REPORT = 706-2) COMMENT:FASTING :N O RAC (test code = Performing RAC) Organization Information: ? ?Site ID: [facility] ? ?Name: [employer] [place] ? ?Address: [address] [place] [phone] ? ?Director: COLT FIERRO MD Lab Interpretation Abnormal (test code = 44702-7) [facility] [id number] 11:00:00 Test Item Value Reference Interpretation Comments Range GLUCOSE (test code 166 mg/dL 65-139 H ? ? ? N on-fasting = 2345-7) reference inter rodrigue UREA NITROGEN (BUN) 34 mg/dL 7-25 H (test code = 3094-0) CREATININE (test 1.7 mg/dL 0.50-0.99 H For patient s >49 code = 2160-0) years of age, the reference limit for Creatinine is approximately 1 3% higher for peopleidentifie d as -Johnna n. eGFR NON- See_Comment L [Automated message] MALAGASY (test code The syst em which = 44925-0) generated this result transmit allison reference range : > OR = 60 mL/min/1.73m2. The reference range was not used to interpret this result as normal/abnormal . eGFR See_Comment L [Automated mes reyes] MALAGASY (test code The syst em which = 96716-1) generated this result transmit allison reference range : > OR = 60 mL/min/1.73m2. The reference range was not used to interpret this result as normal/abnormal . BUN/CREATININE See_Comment [Automated m essage] RATIO (test code = The [facility] which 3097-3) generated this result transmit allison reference range : 6 - 22 (calc). The reference range was not used to interpret this result as normal/abnormal . SODIUM (test code = 140 mmol/L 268-964 6580-2) POTASSIUM (test 4.1 mmol/L 3.5-5.3 code = 2823-3) CHLORIDE (test code 100 mmol/L 98-110 = 2075-0) CARBON DIOXIDE 30 mmol/L 20-32 (test code = 8-9) CALCIUM (test code 9.4 mg/dL 8.6-10.4 = 26739-4) PROTEIN, TOTAL 7.3 g/dL 6.1-8.1 (test code = 2885-2) ALBUMIN (test code 3.5 g/dL 3.6-5.1 L = 1751-7) GLOBULIN (test code See_Comment H [Automa allison message] = 97478-4) The system whic h generated this result transmit allison reference range : 1.9 - 3.7 g/dL (abdon c). The reference r willem was not used to interpret this result as normal/abnormal . ALBUMIN/GLOBULIN See_Comment L [Automated message] RATIO (test code = The Refer.come which 1759-0) generated this result transmit allison reference range : 1.0 - 2.5 (calc). T he reference range was not used to interpret this result as normal/abnormal . BILIRUBIN, TOTAL 0.4 mg/dL 0.2-1.2 (test code = 1975-2) ALKALINE 132 U/L 37-153 PHOSPHATASE (test code = 6768-6) AST (test code = 18 U/L 10-35 1920-8) ALT (test code = 13 U/L 6-29 1742-6) RAC (test code = Performing RAC) Organization Information: ? ?Site ID: [facility] ? ?Name: [employer] [place] ? ?Address: [address] [place] [phone] ? ?Director: COLT FIERRO MD Lab Interpretation Abnormal (test code = 06074-5) [id number] 11:00:00 Test Item Value Reference Range Interpretation Comments URIC ACID (test code 8 mg/dL 2.5-7.0 H Therape utic = 3084-1) target for gout patients: <6.0 mg/dL ? RAC (test code = Performing RAC) Organization Information: ? ?Site ID: [facility] ? ?Name: [employer] [place] ? ?Address: [address] [place] [phone] ? ?Director: COLT FIERRO MD Lab Interpretation Abnormal (test code = 78265-8) [facility]"
[2022-01-02 12:34] LABS: Absolute Lymphocytes (CBC) 1.1 K/uL (0.7-4.9); Hematocrit 21.3 % (36.0-45.0); RBC Red Blood Cell Count 2.13 M/uL (3.86-4.86)
[2022-01-02 12:53] LABS: AST/SGOT 14 U/L (15-37); Albumin 1.9 g/dL (3.4-5.0); Alkaline Phosphatase 107 U/L (45-117); BUN Blood Urea Nitrogen 60 mg/dL (7-18); Bicarbonate 25 mmol/L (21-32); Bilirubin Total 0.5 mg/dL (0.2-1.0); Glomerular Filtration Rate 20 ml/min (=/>90); Glucose Level 245 mg/dL (74-106); Potassium 4.1 mmol/L (3.5-5.1); Protein, Total 7.5 g/dL (6.4-8.2); Sodium Level 142 mmol/L (136-145)
[2022-01-02 12:54] LABS: ALT/SGPT < 10 U/L (12-78)
[2022-01-02 13:22] LABS: Anisocytosis SLIGHT; Blood Morphology Comment NOTED (NOT SEEN); Platelet Estimate ADEQ; Rouleau NOTED; White Blood Cell Scan OK (OK)
[2022-01-02] MEDS ORDERED: CALCIUM GLUCONATE 1 GM IVPB 1 GM/50 ML BAG IV ONE ×3 (13:26→23:00)
[2022-01-02] MEDS ORDERED: NA CHLORIDE 0.9% 250 ML ONE (14:23)
[2022-01-02] MEDS ORDERED: Magnesium Sulfate 2gm IVPB 2 G/50 ML BAG IV ONE (14:23)
--- NOTE | 2022-01-02 14:58 | EDPHYS ---
Physician Documentation [facility] Name: Gena Feng Age: 61 yrs Sex: Female : 1960 Arrival Date: 01/02/2022 Time: 11:34 Bed 17 Private MD: Marcus Stack ED Physician Claritza Khan HPI: 01/02 11:57 This 61 yrs old Female presents to ER via Wheelchair with complaints of sd2 Abnormal Lab Results. 11:57 61 yo F presents with CC of abnormal lab results. Reports routine labs drawn at [facility] lean manufacturing specialist's office on and was called that results were abnormal including a low calcium level of 5.2 and hemoglobin of 6.8, creatinine of 2.75. Pt reports she has not had any new significant symptoms including fatigue, CP, SOB, vomiting, diarrhea, active bleeding or blood in stool. Pt reports the only new medication changes she has had was being taken off her methotrexate 1 month ago after her recent hospitalization. She denies any recent dietary changes.. Historical: - Allergies: 11:48 Codeine; ap3 11:48 Sulfa (Sulfonamide Antibiotics); ap3 - PMHx: 11:48 Diabetes mellitus; Hypertensive disorder; Rheumatoid arthritis; Hypothyroidism; ap3 - Immunization history:: Client reports receiving the 2nd dose of the Covid vaccine. - Social history:: Smoking status: Patient denies any tobacco usage or history of. ROS: 11:58 Constitutional: Negative for fever, chills, and weight loss, Eyes: Negative for injury, sd2 pain, redness, and discharge, Cardiovascular: Negative for chest pain, palpitations, and edema, Respiratory: Negative for shortness of breath, cough, wheezing. Abdomen/GI: Negative for abdominal pain, nausea, vomiting, diarrhea. MS/Extremity: Negative for injury and deformity, Skin: Negative for injury, rash, and discoloration, Neuro: Negative for headache, numbness and tingling. Hematologic/Lymphatic: Negative for swollen nodes, abnormal bleeding, and unusual bruising. Exam: 11:58 Constitutional: This is a well developed, well nourished patient who is awake, alert, sd2 and in no acute distress. Head/Face: Normocephalic, atraumatic. Chest/axilla: Normal chest wall appearance and motion. Nontender with no deformity. Cardiovascular: Regular rate and rhythm with a normal S1 and S2. No gallops, murmurs, or rubs. 2+ distal pulses. Respiratory: Lungs have equal breath sounds bilaterally, clear to auscultation and percussion. No rales, rhonchi or wheezes noted. No increased work of breathing, no retractions or nasal flaring. Abdomen/GI: Soft, non-tender, with normal bowel sounds. No guarding or rebound. No evidence of tenderness throughout. Skin: Warm, dry with normal turgor. Normal color with no rashes, no lesions, and no evidence of cellulitis. MS/ Extremity: Pulses equal, no cyanosis. Neurovascular intact. Full, normal range of motion. Ambulatory without difficulty. Psych: Awake, alert, with orientation to person, place and time. Behavior, mood, and affect are within normal limits. 15:58 ECG was reviewed by the Attending Physician. NSR, possible sinus arrhythmia, rate 60, sd2 no STEMI criteria Vital Signs: 11:44 BP 104 / 54; Pulse 68; Temp 97.9; Pulse Ox 98% ; Weight 113.4 kg; Height 5 ft. 2 in. ap3 (157.48 cm); 12:25 BP 110 / 43; Pulse 68; Resp 16; Pulse Ox 99% on R/A; eh3 13:30 BP 109 / 45; Pulse 66; Resp 16; Pulse Ox 99% ; eh3 14:45 BP 138 / 57; Pulse 64; Resp 16; Pulse Ox 99% ; eh3 11:44 Body Mass Index 45.73 (113.40 kg, 157.48 cm) ap3 MDM: 11:53 Patient medically screened. sd2 11:58 Differential Diagnosis lab error, GIB, anemia, dehydration, electrolyte abnormality sd2 among others. Data reviewed: vital signs, nurses notes. 14:53 Data reviewed: lab test result(s). Counseling: I had a detailed discussion with the sd2 patient and/or guardian regarding: the historical points, exam findings, and any diagnostic results supporting the discharge/admit diagnosis, lab results, the need for further work-up and treatment in the hospital. Medical screen evaluation completed. EMTALA emergency medical condition absent. Medical screen evaluation completed. [facility] Physician consultation: Rafael Miguel MD was called at 14:55, was contacted at 14:55, regarding admission, and will see patient shortly. ED course: Labs with significant anemia, hypocalcemia and elevated creatinine. Unknown baseline. Pt reports receiving blood transfusion at most recent admission at [facility] where she was discharged on 12/15. Denies any bleeding. Hemoccult negative. Calcium, magnesium and 1u PRBC given and patient will be admitted for further management. . ED course: Work-up results discussed with the patient and available family. All questions were answered and the patient is feeling better at the time of admission. Treatment was initiated in the ED but the patient still requires further care in the hospital by the admitting physicians. The case has been discussed in detail with admitting physicians who have accepted care and agree with admission status and decided for placement. Patient is without questions or concerns at the time of admission.. 01/02 11:57 Order name: CBC with Diff; Complete Time: 13:41 sd2 01/02 11:57 Order name: CMP; Complete Time: 13:41 [facility] 01/02 14:50 Interpretation: CRE 2.61. ma2 01/02 11:57 Order name: Type And Screen [facility] 01/02 12:45 Order name: Bb Add On eb 01/02 12:51 Order name: Packed RBC Leukored [facility] 01/02 12:58 Order name: Magnesium; Complete Time: 13:41 sd2 01/02 13:18 Order name: ABO/RH no charge; Complete Time: 13:41 [facility]IN 01/02 13:22 Order name: CBC Smear Scan; Complete Time: 13:41 EDIN 01/02 14:38 Order name: Occult Blood--Ancillary; Complete Time: 16:04 eb 01/02 15:15 Order name: SARS RAPID; Complete Time: 16:04 bp 01/02 16:34 Order name: Ionized Calcium IN 01/02 16:53 Order name: Urinalysis [facility] 01/02 16:53 Order name: CBC with Automated Diff [facility] 01/02 16:53 Order name: CBC with Automated Diff [facility] 01/02 16:42 Order name: Diet Regular; Complete Time: 16:43 mb7 01/02 16:51 Order name: CONS Physician Consult IN 01/02 16:53 Order name: Comprehensive Metabolic Panel [facility] 01/02 16:53 Order name: Comprehensive Metabolic Panel [facility] 01/02 16:53 Order name: Magnesium [facility] 01/02 16:53 Order name: Magnesium [facility] 01/02 16:53 Order name: Phosphorus [facility] 01/02 16:53 Order name: Phosphorus [facility] 01/02 16:59 Order name: Basic Metabolic Panel [facility] 01/02 17:00 Order name: Chest Single View; Complete Time: 18:07 [facility] 01/02 18:14 Order name: T4 Free [facility] 01/02 18:14 Order name: Thyroid Stimulating Hormone [facility] 01/02 18:18 Order name: Vitamin D, 25 ([place]), TOTAL [facility] 01/02 18:27 Order name: PTH Intact [facility] 01/02 12:44 Order name: Labs - recollect needed: recollect T\T\S specimen hemolyzed per Mariah; eb Complete Time: 12:53 01/02 12:45 Order name: Transfuse; Complete Time: 14:43 01/02 13:00 Order name: Hemacult; Complete Time: 14:43 [facility] 01/02 14:53 Order name: EKG - Nurse/Tech; Complete Time: 15:24 [facility] 01/02 16:53 Order name: Dietitian Consult [facility] 01/02 16:53 Order name: Physical Therapy Consult [facility] 01/02 16:53 Order name: 60g Consistent Carbohydrate (ADA 1800) EDIN Administered Medications: 13:23 Drug: Calcium Gluconate 1 grams Route: IVPB; Infused Over: 60 mins; Site: left eh3 antecubital; 17:17 Follow up: IV Status: Completed infusion; IV Intake: 100ml bp 14:15 Drug: Magnesium Sulfate 2 grams Route: IVPB; Infused Over: 2 hrs; Site: left bp antecubital; 17:16 Follow up: IV Status: Completed infusion; IV Intake: 50ml bp Disposition Summary: 01/02/22 14:58 Hospitalization Ordered Hospitalization Status: Observation sd2 Provider: Rafael Miguel sd2 Location: Telemetry/MedSur (observation) sd2 Condition: Stable sd2 Problem: an acute exacerbation sd2 Symptoms: are unchanged sd2 Bed/Room Type: Standard sd2 Room Assignment: [facility](01/02/22 17:14) dw Diagnosis - Hypocalcemia sd2 - Hypomagnesemia sd2 - Severe Anemia sd2 - Elevated creatinine sd2 Forms: - Medication Reconciliation Form sd2 - SBAR form ma2 Signatures: Dispatcher [employer] Beatriz Ford RN RN dw Pedro Hunter, CUSTOMER SERVICE TELLER-C CUSTOMER SERVICE TELLER-Jess1 Farhad Victoria RN RN Denise Sandoval RN RN ap3 Ally Moore [facility] Claritza Khan MD MD [facility] Corrections: (The following items were deleted from the chart) 12:00 11:57 61 yo F presents with CC of abnormal lab results. Reports routine labs drawn at [facility] lean manufacturing specialist's office on and was called that results were abnormal including a low calcium and hemoglobin level. . 17:14 14:58 [facility] dw
--- NOTE | 2022-01-02 14:58 | ER ---
Nurse's Notes [facility] Name: Gena Feng Age: 61 yrs Sex: Female : 1960 Arrival Date: 01/02/2022 Time: 11:34 Bed 17 Private MD: Marcus Stack Diagnosis: Hypocalcemia;Hypomagnesemia;Severe Anemia;Elevated creatinine Presentation: 01/02 11:44 Chief complaint: Patient states: she was called by her provider after some labs were ap3 drawn and told to come to the ED due to some of the values being abnormal. patient was told her hemoglobin was 6.8, creatinine was 2.75 and her calcium is 5.2. patient states he has no complaints of pain, and denies fatigue. Coronavirus screen: At this time, the client does not indicate any symptoms associated with coronavirus-19. Ebola Screen: No symptoms or risks identified at this time. Initial Sepsis Screen: Does the patient meet any 2 criteria? No. Patient's initial sepsis screen is negative. Does the patient have a suspected source of infection? No. Patient's initial sepsis screen is negative. Risk Assessment: Do you want to hurt yourself or someone else? Patient reports no desire to harm self or others. Onset of symptoms was January 02, 2022. 11:44 Method Of Arrival: Wheelchair ap3 11:44 Acuity: AMAYA 3 ap3 Triage Assessment: 11:49 General: Appears in no apparent distress. Behavior is calm, cooperative. General: ap3 patient states she feels nothing out of her normal day-to-day. Pain: Denies pain. Neuro: Level of Consciousness is awake, alert, obeys commands, Oriented to person, place, time, situation. Cardiovascular: Patient's skin is warm and dry. Respiratory: Airway is patent Respiratory effort is even, unlabored. Historical: - Allergies: 11:48 Codeine; ap3 11:48 Sulfa (Sulfonamide Antibiotics); ap3 - PMHx: 11:48 Diabetes mellitus; Hypertensive disorder; Rheumatoid arthritis; Hypothyroidism; ap3 - Immunization history:: Client reports receiving the 2nd dose of the Covid vaccine. - Social history:: Smoking status: Patient denies any tobacco usage or history of. Screenin:50 Abuse screen: Denies threats or abuse. Nutritional screening: No deficits noted. ap3 Tuberculosis screening: No symptoms or risk factors identified. 12:00 Fall Risk None identified. bp Assessment: 12:00 General: SEE TRIAGE NOTE. bp 13:00 Reassessment: CONSENT FOR TRANSFUSION SIGNED AND WITNESSED. eh3 14:00 Reassessment: No changes from previously documented assessment. Patient and/or family eh3 updated on plan of care and expected duration. Pain level reassessed. 14:45 Reassessment: 1ST UNIT PRBC INITIATED. eh3 15:30 Reassessment: No changes from previously documented assessment. Patient and/or family bp updated on plan of care and expected duration. Pain level reassessed. 17:00 Reassessment: PRBC COMPLETE. ADMIT IN PROCESS. bp 18:07 Reassessment: ADMIT COMPLETE. bp Vital Signs: 11:44 BP 104 / 54; Pulse 68; Temp 97.9; Pulse Ox 98% ; Weight 113.4 kg; Height 5 ft. 2 in. ap3 (157.48 cm); 12:25 BP 110 / 43; Pulse 68; Resp 16; Pulse Ox 99% on R/A; eh3 13:30 BP 109 / 45; Pulse 66; Resp 16; Pulse Ox 99% ; eh3 14:45 BP 138 / 57; Pulse 64; Resp 16; Pulse Ox 99% ; eh3 11:44 Body Mass Index 45.73 (113.40 kg, 157.48 cm) ap3 ED Course: 11:34 Patient arrived in ED. mr 11:34 Marcus Stack MD is Private Physician. mr 11:48 Triage completed. ap3 11:50 Arm band placed on right wrist. ap3 11:52 Farhad Victoria, YANI is Primary Nurse. bp 11:52 Claritza Khan is Attending Physician. sd2 12:00 Patient has correct armband on for positive identification. Bed in low position. Call bp light in reach. Side rails up X2. Adult w/ patient. 12:14 Client placed on continuous cardiac and pulse oximetry monitoring. NIBP monitoring eh3 applied. 12:25 CMP Sent. eh3 12:25 Type And Screen Sent. eh3 12:25 CBC with Diff Sent. eh3 12:25 Inserted saline lock: 20 gauge in left antecubital area, using aseptic technique. Blood eh3 collected. 14:55 Rafael Miguel MD is Hospitalizing Provider. sd2 16:43 Assisted to bathroom. Repositioned patient. mb7 18:08 No provider procedures requiring assistance completed. Patient admitted, IV remains in bp place. Administered Medications: 13:23 Drug: Calcium Gluconate 1 grams Route: IVPB; Infused Over: 60 mins; Site: left eh3 antecubital; 17:17 Follow up: IV Status: Completed infusion; IV Intake: 100ml bp 14:15 Drug: Magnesium Sulfate 2 grams Route: IVPB; Infused Over: 2 hrs; Site: left antecubital; 17:16 Follow up: IV Status: Completed infusion; IV Intake: 50ml bp Medication: 12:00 VIS not applicable for this client. bp Intake: 17:16 IV: 50ml; Total: 50ml. bp 17:17 IV: 100ml; Total: 150ml. bp Outcome: 14:58 Decision to Hospitalize by Provider. sd2 18:08 Admitted to Med/surg accompanied by tech, family with patient, via wheelchair, room bp 417, with chart, Report called to SULMA LOMELI 18:08 Condition: stable 18:08 Instructed on the need for admit. 18:34 Patient left the ED. bp Signatures: Halle TobintierFarhad, RN RN bp Denise Walters RN RN ap3 Halle Irwin [facility] Shellie Valdez [facility] Claritza Khan MD MD sd2
[2022-01-02 16:02] LABS: SARS-CoV-2 Antigen Rapid Res Positive (Negative)
[2022-01-02] MEDS ORDERED: ONDANSETRON 4 MG/2 ML VIAL IV PRN (16:49)
--- NOTE | 2022-01-02 17:07 | P.HP ---
Certification for Inpatient Patient admitted to: Observation With expected LOS: <2 Midnights Practitioner: I am a practitioner with admitting privileges, knowledge of patient current condition, hospital course, and medical plan of care. Services: Services provided to patient in accordance with Admission requirements found in Title 42 Section 412.3 of the Code of Federal Regulations Patient History Date of Service: 01/02/22 Reason for admission: hypocalcemia, deanna, anemia History of Present Illness: 61yo F, PMH: IDDM2, HTN, hypothyroid, CKD3, RA (previously on methotrexate up until recently) Presents to ED under instruction by returned goods sorter for abnormal labs. Labs drawn yesterday, hemoglobin: 6.8, creatinine: 2.75, calcium: 5.2. Patient states she is asymptomatic with the exception of feeling intermittent jerking movements since her recent hospitalization earlier this month at [facility]. Describes this as can be holding a cup and all of a sudden have a jerking movement. She states she had this during her hospitalization and this has been unchanged. She was hospitalized at [facility] for 2 weeks from November to December of this year, for pancytopenia with purpura secondary to methotrexate. Empirically treated for her neutropenia, noted to have melanotic stools secondary to presumed mucosal bleed with her platelets < 10. Her cell lines improved, and labs on discharge (12/15): WBC: 7.7, Hgb: 7.2, plt: 72; BUN: 48, , Cr 1.9, calcium 5.8 (albumin:2). Denies any ora bleeding. Has been very fatigued and deconditioned. Using wheelchair at home only. Prior to [facility] hospitalization, she was ambulating with walker. In the ED, she was noted to have Hgb: 6.8, Cr: 2.6, Ca: 5.6, M.5, albumin: 1.9 ED physician ordered 1u PRBC, 1g Ca, and 2g Mg. Requests observation for further management. - Past Medical/Surgical History -: IDDM -: HTN -: Hypothyroid -: Morbid obesity -: Rheumatoid arthritis -: Recent pancytopenia secondary to methotrexate Past Surgical History: Unable to obtain - Family History Family History: Reviewed- Non-Contributory - Social History Smoking Status: Never smoker Place of Residence: Home Review of Systems 10-point ROS is otherwise unremarkable Physical Examination - Physical Exam General: Alert, In no apparent distress, Oriented x3, Obese HEENT: EOMI, Sclerae nonicteric Respiratory: Clear to auscultation bilaterally, Normal air movement Cardiovascular: Edema (2-3+ bilateral pitting edema up to thighs) Gastrointestinal: Soft and benign, Non-distended, No tenderness Musculoskeletal: No contractures, No tenderness Integumentary: No rashes, No significant lesion Neurological: Normal speech, Normal affect - Studies Laboratory Data (last 24 hrs) 01/02/22 12:18: Magnesium 1.5 L 01/02/22 12:18: Sodium 142, Potassium 4.1, BUN 60 H, Creatinine 2.61 H, Glucose 245 H, Total Bilirubin 0.5, AST 14 L, ALT < 10 L, Alkaline Phosphatase 107 01/02/22 12:18: WBC 6.5, Hgb 6.8 L*, Hct 21.3 L, Plt Count 158 Microbiology Data (last 24 hrs): 01/02/22 14:38 Stool Occult Blood - Final Assessment and Plan - Advance Directives Does patient have a Living Will: No Does patient have a Durable POA for Healthcare: No Physician Review Additional Text: Problem list Hypocalcemia, with myoclonic jerks Hypomagnesemia DEANNA on CKD 3 Anemia of chronic disease Hypertension Insulin-dependent DM2 Rheumatoid arthritis Hypothyroidism deconditioned 1g Ca, 2g Mg given in ED unclear etiology, likely multifactorial; replete mg, lasix could contribute, CKD; workup sent symptomatic with myoclonic jerks over last ~4 weeks. Discharged from [facility] with Ca: 5.8 (alb: 2) corrected Ca for hypoalbuminemia: 7.7 recheck BMP later today continue with PO calcium replacement DEANNA - pts baseline in area of low 2s it seems nephrology consulted pt with increased swelling in legs over last few weeks as well, on lasix; hypoalbuminemia not helping PT consulted no evidence of bleed; had melena 3 weeks ago, felt secondary to mucosal bleed in setting of severe thrombocytopenia, pt unsure of stool color, stool occult negative in ER today 1uPRBC given in ED. maintain Hgb >7 confirm home meds, restart monitor on telemetry VTE: SCDs Code: DNR Dispo: home, 1-2 days would benefit from HH / Home PT Time Spent Managing Pts Care (In Minutes): 75
--- NOTE | 2022-01-02 17:57 | RAD REPORT ---
EXAM DESCRIPTION: RAD - Chest Single View - 01/02/2022 5:27 pm CLINICAL HISTORY: covid+, eval effusions/pulm edema COMPARISON: Chest Pa And Lat (2 Views) dated 10/13/2020 FINDINGS: Lines: None. Lungs: Linear atelectasis in the right lung. Increased prominence of the central pulmonary vasculatur e. Pleural: No significant pleural effusions or pneumothorax. Cardiac: Interval enlargement of the cardiac silhouette. Bones: No acute fractures. Other: IMPRESSION: Pulmonary vascular congestion. No ora pulmonary edema.
[2022-01-02 19:01] VITALS: BMI 40.6
[2022-01-02 20:35] LABS: Potassium 4.5 mmol/L (3.5-5.1)
[2022-01-02] MEDS ORDERED: CALCIUM CARBONATE 500 MG TAB PO SCH (21:00)
[2022-01-02] MEDS: INSULIN -REGULAR HUMAN 50 UNIT/0.5 ML ML SQ SCH (21:00)
[2022-01-02] MEDS ORDERED: CALCIUM GLUC 10% INJ 4.65 MEQ in NA CHLORIDE 0.9% 100 ML IV ONE (22:19)
[2022-01-02] MEDS ORDERED: CALCIUM GLUC 10% INJ 4.65 MEQ in NA CHLORIDE 0.9% 100 ML IV SCH (22:36)
[2022-01-02] MEDS ORDERED: NA CHLORIDE 0.9% 1,000 ML IV SCH (23:00)
[2022-01-03] MEDS ORDERED: CALCIUM GLUCONATE 1 GM IVPB 2 GM/100 ML BAG IV ONE (00:19)
--- NOTE | 2022-01-03 02:47 | CON ---
Date of Consultation: 01/02/2022 Chief Complaint: Acute kidney injury, hypocalcemia. History Of Present Illness: The patient has history of chronic kidney disease stage 3, hypothyroidism, hypertension, insulin-dependent diabetes mellitus, and diabetic kidney disease, history of rheumatoid arthritis, previously on methotrexate. The patient presented to emergency room, referred by Rheumatology for abnormal labs. Creatinine level was up to 2.75 and total calcium level was 5.2, patient had hypoalbuminemia. Hemoglobin 6.8. The patient states she was feeling intermittent jerky movements in the upper extremity. The patient describes generalized weakness and jerky movement in both hands. She denies fever or chills. She was recently hospitalized at [facility] for pancytopenia with purpura secondary to methotrexate, and subsequently, methotrexate was stopped. She was empirically treated for neutropenia, the patient noted to have melenic stool when her platelet count was less than 10. Subsequently, hemoglobin improved to 7.2 and BUN was 40 and creatinine 1.9, calcium 5.8, and albumin 2. The patient denies ora bleeding, although she was complaining of fatigue and deconditioning. In the emergency room, she was found to have creatinine of 2.6, calcium 5.6, magnesium 1.5, albumin 1.9, and hemoglobin 6.8. She received 1 unit of packed red blood cells, 1 g of calcium gluconate, and 2 g magnesium sulfate infusion. The patient is feeling better after medications were given to stabilize calcium level. Past Medical History: Insulin-dependent diabetes mellitus, hypertension, hypothyroidism, morbid obesity, rheumatoid arthritis, and recent pancytopenia secondary to methotrexate. Family History: No kidney disease in the family. Social History: Denies tobacco, alcohol, or illicit drugs. Physical Examination: General: The patient is awake and alert. Normal respiratory effort. Follows commands. Neck: Supple. Heart: S1 and S2. Abdomen: Soft. Extremities: No edema. Lab Work: Magnesium 1.5, sodium 142, potassium 4.1, BUN 60, creatinine 2.61, glucose 245, and total bilirubin 0.5. WBC 6.5, hemoglobin 6.8, and platelet count 158,000. Stool occult blood pending. Chest x-ray showed vascular congestion. Impression And Plan: 1. Hypocalcemia, symptomatic, with myoclonic jerks, hypomagnesemia, acute on chronic kidney injury. The patient has underlying chronic kidney stage 3. She presented with generalized weakness and symptomatic hypocalcemia. She has history of hypertension, diabetes mellitus, on insulin, rheumatoid arthritis, hypothyroidism, severe deconditioning. The patient was found to have COVID positive test and she is on isolation. She will continue Lasix for volume control. She has interstitial pulmonary edema with vascular congestion. Plan is to monitor urine output. The patient has severe hypoalbuminemia. Plan is to check for monoclonal gammopathy of unknown significance. 2. Hypocalcemia, re-evaluate 25-hydroxy vitamin D, intact PTH and continue calcium replacement and magnesium replacement. Start calcitriol for treatment of symptomatic hypocalcemia. 3. Acute kidney injury. Baseline creatinine level is 1.2-1.4. The patient has acute on chronic kidney injury likely secondary to acute tubular necrosis. The patient at this point cannot tolerate IV fluids. The patient is on Lasix for congestive heart failure with pulmonary edema. I recommend cardiac workup. 4. Hypertension, monitor blood pressure closely. Avoid ARB, IAM inhibitor. 5. Check phosphorus level and CK level as well as uric acid level. Plan is to re-evaluate with renal ultrasound. SANDRA/ELIJAH Voice ID: [id number] Report ID: [id number] COLIN
[2022-01-03 03:47] LABS: Absolute Lymphocytes (CBC) 1.3 K/uL (0.7-4.9); MCV 95.8 fL (80-100); MPV 9.8 fL (7.6-11.3); RBC Red Blood Cell Count 2.11 M/uL (3.86-4.86)
[2022-01-03 03:52] LABS: Hematocrit 20.3 % (36.0-45.0)
[2022-01-03 04:11] LABS: AST/SGOT 8 U/L (15-37); Albumin 1.7 g/dL (3.4-5.0); Alkaline Phosphatase 81 U/L (45-117); BUN Blood Urea Nitrogen 57 mg/dL (7-18); Bicarbonate 26 mmol/L (21-32); Bilirubin Total 0.4 mg/dL (0.2-1.0); Glomerular Filtration Rate 24 ml/min (=/>90); Glucose Level 135 mg/dL (74-106); Phosphorus 5.5 mg/dL (2.5-4.9); Protein, Total 7.2 g/dL (6.4-8.2); Sodium Level 141 mmol/L (136-145); Uric Acid 8.6 mg/dL (2.6-6.0)
[2022-01-03 04:12] LABS: ALT/SGPT < 10 U/L (12-78); Thyroid Stimulating Hormone 46.3 uIU/mL (0.360-3.740)
[2022-01-03] MEDS ORDERED: NA CHLORIDE 0.9% 250 ML IV SCH (05:00)
[2022-01-03] MEDS: INSULIN -REGULAR HUMAN 50 UNIT/0.5 ML ML SQ SCH ×4 (07:30→21:16)
[2022-01-03] MEDS: CALCITROL 0.25 MCG CAP PO SCH (08:47)
[2022-01-03] MEDS: CALCIUM CARBONATE 500 MG TAB PO SCH ×2 (08:47→22:07)
[2022-01-03] MEDS: MAGNESIUM OXIDE 400 MG TAB PO SCH ×2 (08:47→22:07)
[2022-01-03] MEDS ORDERED: ENOXAPARIN 40 MG/0.4 ML SQ SCH (09:00)
--- NOTE | 2022-01-03 09:27 | EKG ---
Test Date: 2022-01-02 Test Time: 15:22:22 Learning And Development Administrator: RONALDO MEASUREMENT RESULTS: Intervals: Rate: 60 AR: 156 QRSD: 76 QT: 442 QTc: 442 [place]: P: 29 AR: 156 QRS: 43 T: 28 INTERPRETIVE STATEMENTS: Undetermined rhythm Otherwise normal ECG Compared to ECG 09/25/2017 12:18:09 Sinus bradycardia no longer present Atrial premature complex(es) no longer present Electronically Signed On 01-03-22 09:24:47 CDT by Kelby Egan
[2022-01-03] MEDS: FUROSEMIDE 40 MG/4 ML VIAL IV SCH ×2 (11:01→16:19)
[2022-01-03] MEDS: CALCIUM GLUCONATE 1 GM IVPB 1 GM/50 ML BAG IV SCH ×3 (11:37→22:08)
--- NOTE | 2022-01-03 12:15 | RAD REPORT ---
EXAM DESCRIPTION: CT - Stone Protocol - 01/03/2022 11:58 am CLINICAL HISTORY: dagoberto COMPARISON: Abdomen Pelvis Scan US dated 04/02/2021 TECHNIQUE: Axial 3 mm thick images were obtained without oral or IV contrast. The [id number] span s the entirety of the system including uppermost abdomen and lung bases. All CT scans are performed using dose optimization technique as appropriate and may include automated exposure control or mA/KV adjustment according to patient size. FINDINGS: There is slight fullness of each renal pelvis but no hydronephrosis. No obstructing or non obstructing calculi identifiable. Right kidney is atrophic and much smaller than the left. The asymme try is similar or even more pronounced than seen on March 2021 study. In the lateral upper pole rig ht kidney there is a 3.4 centimeter fluid attenuation mass believed to be a simple cyst. In the upper pole left kidney there is a similar 4.4 centimeter simple cyst attenuation mass. Left-sided cortical thickness is normal. There is thinning of the atrophic right renal cortex. No abnormal perinephric s tranding or unusual perinephric edema pattern. No suspicious renal masses. Isodense masses and pyelon ephritis are not excluded on a stone protocol CT scan. No significant adrenal finding. No urinary nate dder suspicious finding. Atrophic uterus without acute finding. Ovaries are atrophic or obscured by adjacent isodense bowel. A cute CASKET ASSEMBLER process is not seen. Imaged portions of the liver, spleen and pancreas show no suspicious findings on non-contrast imaging . No gallbladder or biliary tree abnormality identified. No suspicious bowel findings. There is prominent left-sided diverticulosis but no acute diverticuliti s. Assessment of the perianal rectum is limited inherently on CT imaging. No direct or indirect evide nce for appendicitis. No hernia, mass or bulky lymphadenopathy noted. No free air, free fluid or pneumatosis. Disc and bone degenerative changes are present. Postsurgical changes are present at the lumbosacral j unction. IMPRESSION: No hydronephrosis or obstructing calculus. Right renal atrophy with significant asymmetry in size. Left kidney is normal size. Right-sided corti abdon thinning is present. Simple cysts are present in the upper pole of each kidney. Prominent diverticulosis but no diverticulitis or acute GI finding identifiable. Isodense masses and pyelonephritis are not excluded on stone protocol technique.
[2022-01-03 13:11] LABS: Hematocrit 27.5 % (36.0-45.0)
--- NOTE | 2022-01-03 21:10 | P.PN ---
Date of Service: 01/03/22 Subjective: no acute events overnight. no significant change wants to go home ROS: 10 point ROS as noted above, otherwise negative Physical exam GEN: Alert, oriented, NAD, obese HEENT: Normal conjunctiva, sclera anicteric CV: Regular rate and rhythm, 2+ bilateral lower extremity edema Pulm: Nonlabored respirations on room air ABD: Soft, nontender, nondistended Neuro: Normal speech, normal affect Problem list Hypocalcemia, with myoclonic jerks Hypomagnesemia DEANNA on CKD 3 Anemia of chronic disease Hypertension Insulin-dependent DM2 Rheumatoid arthritis Hypothyroidism deconditioned 1g Ca, 2g Mg given in ED unclear etiology, likely multifactorial; replete mg, lasix could contribute, CKD; workup sent symptomatic with myoclonic jerks over last ~4 weeks. [address] [facility] with Ca: 5.8 (alb: 2) corrected Ca for hypoalbuminemia: 7.7 on admission, improving continue with calcium replacement DEANNA - pts baseline in area of low 2s it seems nephrology consulted pt with increased swelling in legs over last few weeks as well, on lasix; hypoalbuminemia not helping PT consulted no evidence of bleed; had melena 3 weeks ago, felt secondary to mucosal bleed in setting of severe thrombocytopenia, pt unsure of stool color, stool occult negative in ER 1uPRBC given in ED. maintain Hgb >7 hgb same after 1uPRBC, 2nd uPRBC ordered 01/03 confirm home meds, restart monitor on telemetry VTE: SCDs Code: DNR Dispo: home, ~2 days would benefit from HH / Home PT Time Spent Managing Pts Care (In Minutes): 35
[2022-01-03] MEDS ORDERED: METOPROLOL TARTRATE 5 MG/5 ML INJ IV STA (23:49)
[2022-01-04] MEDS: METOPROLOL TAR 25 MG TAB PO SCH ×3 (00:54→22:01)
--- NOTE | 2022-01-04 02:47 | PN ---
Date of Progress Note: 01/03/2022 Chief Complaint: Acute on chronic kidney injury, symptomatic hypocalcemia. Patient has history of chronic kidney stage 3, hypothyroidism, hypertension, insulin-dependent diabetes mellitus, diabetic kidney disease, history of rheumatoid arthritis, previously on methotrexate. Patient presented to emergency room because of referral from the Rheumatology for abnormal lab, creatinine level was up to 2.75, total calcium level 5.2, patient had hypoalbuminemia. Patient had symptomatic hypocalcemia. She was feeling intermittent jerking movements and paresthesia. She denies fever, chills. About 2 weeks ago, she was hospitalized at [facility] for pancytopenia with purpura secondary to methotrexate. Subsequently, methotrexate was stopped. Patient was started on calcium gluconate IV for severe hypocalcemia. Patient was found to have hypomagnesemia and received magnesium sulphate infusion. Patient was found to have hypoalbuminemia, albumin was 1.1 and calcium was 5.6. Review of Systems: Patient denies new complaints. Physical Examination: Heart: S1, S2. Abdomen: Soft. Extremities: No edema. Impression: 1. Acute on chronic kidney injury. Renal function has not improved significantly. Continue to monitor I's and O's. Patient required IV Lasix for volume control. ER work up showed increased vascular congestion and interstitial pulmonary edema. 2. Hypocalcemia was treated with calcium by mouth and IV calcium gluconate. Calcitriol was started and thyroid function test was ordered to rule out hypothyroid, hypothyroidism likely is a contributing factor to hypocalcemia. 3. Acute kidney injury secondary to acute tubular necrosis. Continue to monitor renal function. Avoid nonsteroidal antiinflammatory medication. Patient may require IV Lasix for pulmonary edema. 4. Hypertension, avoid IAM inhibitor due to DEANNA. 5. Hypoalbuminemia. Workup was ordered to check proteinuria and serum protein electrophoresis with immunofixation. EB/MODL Voice ID: [id number] Report ID: [id number] COLIN
[2022-01-04 03:44] LABS: Absolute Lymphocytes (CBC) 1.8 K/uL (0.7-4.9); Hematocrit 24.5 % (36.0-45.0); Lymphocytes % 31.6 % (15.3-44.8); MCV 91.7 fL (80-100); MPV 9.3 fL (7.6-11.3); RBC Red Blood Cell Count 2.67 M/uL (3.86-4.86)
[2022-01-04 04:14] LABS: ALT/SGPT < 10 U/L (12-78); AST/SGOT 13 U/L (15-37); Albumin 1.8 g/dL (3.4-5.0); Alkaline Phosphatase 115 U/L (45-117); BUN Blood Urea Nitrogen 47 mg/dL (7-18); Bicarbonate 30 mmol/L (21-32); Bilirubin Total 0.3 mg/dL (0.2-1.0); Glomerular Filtration Rate 23 ml/min (=/>90); Glucose Level 136 mg/dL (74-106); Magnesium 1.7 mg/dL (1.8-2.4); Phosphorus 4.3 mg/dL (2.5-4.9); Potassium 3.5 mmol/L (3.5-5.1); Protein, Total 7.4 g/dL (6.4-8.2); Sodium Level 142 mmol/L (136-145)
[2022-01-04] MEDS: INSULIN -REGULAR HUMAN 50 UNIT/0.5 ML ML SQ SCH ×4 (07:30→22:02)
[2022-01-04] MEDS: LEVOTHYROXINE SOD 0.05 MG TABLET PO SCH (07:32)
[2022-01-04] MEDS: PANTOPRAZOLE 40MG TABLET PO SCH (07:32)
[2022-01-04] MEDS: MAGNESIUM OXIDE 400 MG TAB PO SCH ×2 (09:00→22:01)
[2022-01-04] MEDS ORDERED: HOME MED 1 EA UNK (Losartan/Hydrochlorothiazide [Losartan-Hctz 100-12.5 Mg Tab] 1 EACH Tab PO SCH (09:00)
[2022-01-04] MEDS ORDERED: HOME MED 1 EA UNK (Levothyroxine Sodium [Levothyroxine] 150 MCG Capsule) PO SCH (09:00)
[2022-01-04] MEDS ORDERED: FUROSEMIDE 40 MG TABLET PO SCH (09:00)
[2022-01-04] MEDS: FOLIC ACID 1 MG TABLET PO SCH (10:07)
[2022-01-04] MEDS: CALCITROL 0.25 MCG CAP PO SCH (10:08)
[2022-01-04] MEDS: LIOTHYRONINE SOD 5 MCG TAB PO SCH (10:08)
[2022-01-04] MEDS: GABAPENTIN 300 MG CAP PO SCH ×2 (10:08→22:01)
[2022-01-04] MEDS: hydroCHLOROthiazide 12.5 MG CAP PO SCH (10:10)
[2022-01-04] MEDS: LOSARTAN POTASSIUM 50 MG TABLET PO SCH (10:10)
[2022-01-04] MEDS: CALCIUM CARBONATE 500 MG TAB PO SCH ×3 (10:11→22:00)
[2022-01-04] MEDS: FUROSEMIDE 40 MG/4 ML VIAL IV SCH ×2 (10:11→17:54)
[2022-01-04] MEDS: HYDRALAZINE HCL 25 MG TABLET PO SCH ×3 (10:11→22:02)
--- NOTE | 2022-01-04 12:36 | EKG ---
Test Date: 2022-01-04 Test Time: 01:10:11 Property Disposal Officer: RT Espitia MEASUREMENT RESULTS: Intervals: Rate: 68 NM: 154 QRSD: 82 QT: 434 QTc: 461 [place]: P: 41 NM: 154 QRS: 46 T: 96 INTERPRETIVE STATEMENTS: Normal sinus rhythm Nonspecific ST and T wave abnormality Abnormal ECG Compared to ECG 01/03/2022 23:23:04 Atrial fibrillation no longer present Ventricular premature complex(es) no longer present ST (T wave) deviation still present Electronically Signed On 01-04-22 12:35:57 CDT by Archie Bhardwaj
--- NOTE | 2022-01-04 12:37 | EKG ---
Test Date: 2022-01-03 Test Time: 23:23:04 Spring Maker: RT Espitia MEASUREMENT RESULTS: Intervals: Rate: 122 [place]: QRSD: 82 QT: 356 QTc: 507 [place]: P: MS: QRS: 50 T: 170 INTERPRETIVE STATEMENTS: Atrial fibrillation with rapid ventricular response with premature ventricular or aberrantly conducted complexes Nonspecific ST and T wave abnormality, probably digitalis effect Abnormal ECG Compared to ECG 01/02/2022 15:22:22 Ventricular premature complex(es) now present ST (T wave) deviation now present Electronically Signed On 01-04-22 12:36:03 CDT by Archie Bhardwaj
--- NOTE | 2022-01-04 14:06 | ECHO ---
HEIGHT: 5 ft 2 in WEIGHT: 222 lb 3.2 oz DATE OF STUDY: 01/04/[address]: Kelby Egan MD 2-DIMENSIONAL: YES M.MODE: YES DOPPLER: YES COLOR FLOW: YES TDS: NO PORTABLE: YES DEFINITY: NO BUBBLE STUDY: NO DIAGNOSIS: ATRIAL FIBRILLATION CARDIAC HISTORY: CATHERIZATION: NO SURGERY: NO PROSTHETIC VALVE: NO PACEMAKER: ON MEASUREMENTS (cm) DIASTOLIC (NORMALS) SYSTOLIC (NORMALS) IVSd 1.1 (0.6-1.2) LA Diam 3.0 (1.9-4.0) LVEF 61% LVIDd 4.9 (3.5-5.7) LVIDs 3.3 (2.0-3.5) %FS 33% LVPWd 1.1 (0.6-1.2) Ao Diam 2.7 (2.0-3.7) 2 DIMENSIONAL ASSESSMENT: RIGHT ATRIUM: NORMAL LEFT ATRIUM: NORMAL RIGHT VENTRICLE: NORMAL LEFT VENTRICLE: NORMAL TRICUSPID VALVE: NORMAL MITRAL VALVE: MILD MITRAL REGURGITATION PULMONIC VALVE: MILD PULMONIC INSUFFICIENCY AORTIC VALVE: MILD AORTIC INSUFFICIENCY PERICARDIAL EFFUSION: NONE AORTIC ROOT: NORMAL LEFT VENTRICULAR WALL MOTION: NORMAL. DOPPLER/COLOR FLOW: SEE BELOW. COMMENTS: NORMAL LEFT VENTRICULAR EJECTION FRACTION 55-60%. NORMAL WALL MOTION. MILD MITRAL REGURGITATION, MILD AORTIC INSUFFICIENCY. MILD PULMONIC INSUFFICIENCY. TECHNOLOGIST: GERTRUDE MARCUS
--- NOTE | 2022-01-04 16:11 | P.PN ---
Subjective Date of Service: 01/04/22 Chief Complaint: hypocalcemia, deanna, anemia No new complaints. No twigs or muscle jerks. Serum calcium level improving slowly. She denies shortness of breath. Physical Examination - Vital Signs Temperature: 97.6 F Blood Pressure: 166/55 Pulse: 69 Respirations: 16 Pulse Ox (%): 98 Assessment And Plan - Plan Physical exam GEN: Alert, oriented, NAD, obese HEENT: Normal conjunctiva, sclera anicteric CV: Regular rate and rhythm, 2+ bilateral lower extremity edema Pulm: Clear to auscultation bilaterally, nonlabored respirations on room air ABD: Soft, nontender, nondistended Neuro: Normal speech, normal affect Problem list Hypocalcemia, with myoclonic jerks Hypomagnesemia DEANNA on CKD 3 Anemia of chronic disease Hypertension Insulin-dependent DM2 Rheumatoid arthritis Hypothyroidism deconditioned Plan: Cause of hypocalcemia is unclear. Vit D-OH level is within normal limit. PTH within normal limit. Ionized calcium level is pending. Total calcium level is slowly improving. Calcium level corrected for albumin level is 8.16. Continue to replace supplement and magnesium. Patient started on oral calcium supplements and calcitriol. nephrology is following. Serum creatinine is improving She is tolerating PT and appear to be at baseline functional status. no evidence of bleed; had melena 3 weeks ago, felt secondary to mucosal bleed in setting of severe thrombocytopenia. Stool occult negative in ER Status post 2uPRBC. Monitor and transfuse as needed for hemoglobin less than 7 Monitor on telemetry
--- NOTE | 2022-01-04 16:20 | PN ---
Date of Progress Note: 01/04/2022 Subjective: The patient was admitted with acute kidney injury, hypocalcemia, and pancytopenia. Kidney function has been improved marginally. Physical Examination: Vital Signs: When I saw the patient; blood pressure 156/60, pulse of 61, afebrile. The patient had good urine output, voiding. Chest: Clear to auscultation. Heart: S1, S2. Regular. Abdomen: Soft, nontender. Extremity: No edema. Neurologic: Alert. No focality. No tremor. Laboratory Data: WBC 5.6, H and H 8.4/24.5, platelets 152. Sodium 142, potassium 3.5, bicarb 30, BUN 47, creatinine 2.3, GFR of 23, calcium 6.4, magnesium 1.7. Serum protein electrophoresis is still pending. UA was not done. PTH is 39. Current Medications: The patient on include; 1. Calcium carbonate 1500 b.i.d. 2. Hydralazine 25 t.i.d. 3. Losartan. 4. Metoprolol 12.5 b.i.d. 5. Gabapentin. 6. Hydrochlorothiazide. 7. Lasix. 8. Folic acid. 9. Levothyroxine. 10. Magnesium oxide. Assessment And Plan: 1. Acute kidney injury on chronic kidney disease, nonoliguric, looked to me normal volume. I am going to continue hydration. Given the pancytopenia to rule out any paraneoplastic, we will send for serum protein electrophoresis, haptoglobin, and LDH. We will follow up serology. 2. Hypokalemia and hypomagnesemia. We will supplement. 3. Hypocalcemia. The patient was started on calcium carbonate. We will increase it to 1500 t.i.d. I am going to start the patient on calcitriol and we will follow up protein electrophoresis. Time spent examining the patient [id number], reviewing the data, placing order, discussing with by bedside, discussing with staff member including charge nurse and nursing and hospitalist 45 minutes. ISA Voice ID: [id number] Report ID: [id number] COLIN
[2022-01-04] MEDS ORDERED: DOXEPIN HCL 10 MG CAP PO SCH (21:00)
[2022-01-05 00:17] VITALS: O2SAT 92
[2022-01-05 04:37] LABS: Absolute Lymphocytes (CBC) 1.6 K/uL (0.7-4.9); Hematocrit 25.1 % (36.0-45.0); Lymphocytes % 33.3 % (15.3-44.8); MCV 92.1 fL (80-100); MPV 9.2 fL (7.6-11.3); RBC Red Blood Cell Count 2.73 M/uL (3.86-4.86)
[2022-01-05 04:40] LABS: Albumin 1.9 g/dL (3.4-5.0); BUN Blood Urea Nitrogen 42 mg/dL (7-18); Bicarbonate 33 mmol/L (21-32); Ferritin 339.6 ng/mL (8-388); Folic Acid, (Folate) > 20.0 ng/mL (3.1-17.5); Glomerular Filtration Rate 24 ml/min (=/>90); Glucose Level 162 mg/dL (74-106); Phosphorus 3.6 mg/dL (2.5-4.9); Potassium 3.6 mmol/L (3.5-5.1); Sodium Level 139 mmol/L (136-145); Transferrin 144 mg/dL (200-360); Uric Acid 7.6 mg/dL (2.6-6.0)
[2022-01-05 05:20] LABS: White Blood Cell Scan OK (OK)
[2022-01-05 05:21] LABS: Anisocytosis 2+; Blood Morphology Comment NOTED (NOT SEEN); Platelet Estimate ADEQ; Polychromasia 1+
[2022-01-05] MEDS: LEVOTHYROXINE SOD 0.05 MG TABLET PO SCH (06:39)
[2022-01-05] MEDS: PANTOPRAZOLE 40MG TABLET PO SCH (06:39)
[2022-01-05 07:20] LABS: Urine Bilirubin Negative (Negative); Urine Blood Negative (Negative); Urine Clarity Clear (Clear); Urine Color Yellow (Yellow); Urine Glucose Negative (Negative); Urine Protein 2+ (Negative); Urine Urobilinogen 0.2 mg/dL (0.2-1.0)
[2022-01-05 07:28] LABS: UR PROTEIN 144.9 mg/dL (<11.9); Urine Protein/Creatinine Ratio 2.73 ratio (<0.15)
[2022-01-05 07:29] LABS: Urine Bacteria <20 /HPF (<20); Urine RBC <5 /HPF (None Seen)
[2022-01-05] MEDS: INSULIN -REGULAR HUMAN 50 UNIT/0.5 ML ML SQ SCH ×2 (07:30→13:06)
[2022-01-05] MEDS ORDERED: FENOFIBRATE MICRONIZED PO SCH (09:00)
[2022-01-05] MEDS ORDERED: EPA PO SCH (09:00)
[2022-01-05] MEDS ORDERED: FISH OIL PO SCH (09:00)
[2022-01-05] MEDS ORDERED: DHA PO SCH (09:00)
[2022-01-05] MEDS ORDERED: OMEGA PO SCH (09:00)
[2022-01-05 09:26] LABS: Rheumatoid Factor NEG (NEG)
[2022-01-05] MEDS: HYDRALAZINE HCL 25 MG TABLET PO SCH (09:52)
[2022-01-05] MEDS: LOSARTAN POTASSIUM 50 MG TABLET PO SCH (09:53)
[2022-01-05] MEDS: CALCITROL 0.25 MCG CAP PO SCH (09:54)
[2022-01-05] MEDS: MAGNESIUM OXIDE 400 MG TAB PO SCH (09:54)
[2022-01-05] MEDS: hydroCHLOROthiazide 12.5 MG CAP PO SCH (09:54)
[2022-01-05] MEDS: GABAPENTIN 300 MG CAP PO SCH (09:54)
[2022-01-05] MEDS: LIOTHYRONINE SOD 5 MCG TAB PO SCH (09:54)
[2022-01-05] MEDS: METOPROLOL TAR 25 MG TAB PO SCH (09:55)
[2022-01-05] MEDS: FOLIC ACID 1 MG TABLET PO SCH (09:55)
[2022-01-05] MEDS: FUROSEMIDE 40 MG/4 ML VIAL IV SCH (09:55)
[2022-01-05] MEDS: CALCIUM CARBONATE 500 MG TAB PO SCH (09:56)
--- NOTE | 2022-01-05 11:07 | P.DS ---
Admission Date: 01/04/22 Discharge Date: 01/05/22 Disposition: ROUTINE DISCHARGE Discharge Condition: FAIR Reason for Admission: hypocalcemia, deanna, anemia Brief History of Present Illness: 61yo F, PMH: IDDM2, HTN, hypothyroid, CKD3, RA previously on methotrexate presented to ED under instruction by specialty person for abnormal labs- hemoglobin: 6.8, creatinine: 2.75, calcium: 5.2. Patient reported intermittent jerking movements since her recent hospitalization earlier this month at [facility]. She was hospitalized at [facility] for 2 weeks from November to December of this year, for pancytopenia with purpura secondary to methotrexate. Empirically treated for her neutropenia, noted to have melanotic stools secondary to presumed mucosal bleed with her platelets < 10. Her cell lines improved, and labs on discharge (12/15): WBC: 7.7, Hgb: 7.2, plt: 72; BUN: 48, , Cr 1.9, calcium 5.8 (albumin:2). She denied any ora bleeding but reported fatigue and currently using wheelchair at home only. Prior to [facility] hospitalization, she was ambulating with walker. In the ED, she was noted to have Hgb: 6.8, Cr: 2.6, Ca: 5.6, M.5, albumin: 1.9 1 units PRBC transfusion ordered, 1g Ca, and 2g Mg ordered. Patient admitted for further management. Hospital Course: Diagnosis Hypocalcemia, with myoclonic jerks Hypomagnesemia DEANNA on CKD 3 Anemia of chronic disease Hypertension Insulin-dependent DM2 Rheumatoid arthritis Hypothyroidism deconditioned Plan: Cause of hypocalcemia is unclear. Vit D-OH level within normal limit. PTH within normal limit. Ionized calcium level is pending. Patient treated with IV calcium and magnesium replacement. Seen by nephrology and later started on oral magnesium, oral calcium supplementation and calcitriol. Total calcium level slowly improved Calcium level corrected for albumin level is 8.2. Serum creatinine also improved. She was on IV Lasix during the hospital stay. Patient transitioned to home dose oral Lasix on discharge She tolerating PT and appear to be at baseline functional status. Patient had anemia. No evidence of bleed; had melena 3 weeks ago, felt secondary to mucosal bleed in setting of severe thrombocytopenia. Stool occult negative in ER Status post 2u PRBC. Hemoglobin was stable after transfusion. TSH was elevated indicating hypothyroidism. Her home dose Synthroid increased from 150 mcg to 175 mcg. Patient has been asymptomatic, calcium level has improved. She is discharged with oral calcium, calcitriol and magnesium supplement. Vital Signs/Physical Exam: Temp Pulse Resp BP Pulse Ox 97.6 F 65 17 180/60 H 92 01/05/22 04:00 01/05/22 09:55 01/05/22 04:00 01/05/22 09:55 01/05/22 04:00 General: Alert, In no apparent distress, Oriented x3 HEENT: Mucous membr. moist/pink Neck: JVD not distended Respiratory: Clear to auscultation bilaterally, Normal air movement Cardiovascular: No edema, Regular rate/rhythm, Normal S1 S2 Capillary refill: <2 Seconds Gastrointestinal: Normal bowel sounds, Soft and benign, Non-distended, No tenderness Musculoskeletal: No swelling Integumentary: No cyanosis Neurological: Normal strength at 5/5 x4 extr Laboratory Data at Discharge: WBC 4.9 K/uL (4.3-10.9) 01/05/22 03:11 Hgb 8.5 g/dL (12.0-15.0) L 01/05/22 03:11 Hct 25.1 % (36.0-45.0) L 01/05/22 03:11 Plt Count 165 K/uL (152-406) 01/05/22 03:11 Sodium 139 mmol/L (136-145) 01/05/22 03:11 Potassium 3.6 mmol/L (3.5-5.1) 01/05/22 03:11 BUN 42 mg/dL (7-18) H 01/05/22 03:11 Creatinine 2.26 mg/dL (0.55-1.3) H 01/05/22 03:11 Glucose 162 mg/dL (74-106) H 01/05/22 03:11 Uric Acid 7.6 mg/dL (2.6-6.0) H 01/05/22 03:11 Phosphorus 3.6 mg/dL (2.5-4.9) 01/05/22 03:11 Magnesium 1.7 mg/dL (1.8-2.4) L 01/04/22 03:06 Total Bilirubin 0.3 mg/dL (0.2-1.0) 01/04/22 03:06 AST 13 U/L (15-37) L 01/04/22 03:06 ALT < 10 U/L (12-78) L 01/04/22 03:06 Alkaline Phosphatase 115 U/L (45-117) 01/04/22 03:06 Home Medications: Doxepin HCl [Sinequan*] 1 - 2 cap PO BEDTIME 01/03/22 Fenofibrate,Micronized [Fenofibrate] 54 mg PO DAILY 01/03/22 Folic Acid 1 mg PO DAILY 01/03/22 Furosemide [Lasix*] 40 mg PO DAILY 01/03/22 Gabapentin 300 mg PO BID 01/03/22 Hydralazine [Apresoline*] 1 tab PO TID 01/03/22 Losartan/Hydrochlorothiazide [Losartan-Hctz 100-12.5 mg Tab] 1 tab PO DAILY 01/03/22 Metoprolol Tartrate 12.5 mg PO BID 01/03/22 Mv-Mn/Iron/Folic Acid/Herb 190 [Vitamin D3 Complete Caplet] 50,000 unit PO SEECOM 01/03/22 [place]-3/Dha/Epa/Fish Oil [Nuretin Softgel] 1 cap PO DAILY 01/03/22 Pantoprazole [Protonix Tab*] 1 tab PO DAILY 01/03/22 Insulin Aspart [Novolog Flexpen] 5 units SQ SEECOM 01/04/22 Insulin Detemir [Levemir] 12 units SQ SEECOM 01/04/22 Calcitrol [Rocaltrol*] 0.5 mcg PO DAILY #30 cap 01/05/22 Calcium Carbonate [Oscal*] 1,500 mg PO TID #270 tab 01/05/22 Levothyroxine Sodium [Levothyroxine] 175 mcg PO DAILY #30 01/05/22 Magnesium Oxide [Mag 0X*] 400 mg PO BID #60 tab 01/05/22 hydroCHLOROthiazide [Hydrochlorothiazide*] 12.5 mg PO DAILY #30 cap 01/05/22 New Medications: hydroCHLOROthiazide [Hydrochlorothiazide*] 12.5 mg PO DAILY #30 cap Levothyroxine Sodium [Levothyroxine] 175 mcg PO DAILY #30 Magnesium Oxide [Mag 0X*] 400 mg PO BID #60 tab Calcium Carbonate [Oscal*] 1,500 mg PO TID #270 tab Calcitrol [Rocaltrol*] 0.5 mcg PO DAILY #30 cap Diet: AHA Activity: Ad sara Followup: Nicolette Burnett MD [COURTESY - CAN ADMIT] - (follow up as scheduled.) Marcus Stack MD [Primary Care Provider] - 1-2 Weeks (call for an apointment) Time spent managing pt's care (in minutes): 38
[2022-01-05 13:58] VITALS: BP 154/67; TEMP 97.6
--- NOTE | 2022-01-05 14:27 | PN ---
Date of Progress Note: 01/05/2022 Subjective: The patient was admitted with acute kidney injury secondary to cardiorenal on chronic kidney disease with pancytopenia. Physical Examination: Vital Signs: Blood pressure 180/60, pulse of 65, afebrile. Chest: Clear to auscultation. Heart: S1, S2. Systolic murmur. Abdomen: Soft, nontender. Extremity: Trace edema. Neurologic: Alert. No focality. Laboratory Data: WBC 4.9, H and H 8.5/25.1, platelets 165. Sodium 139, potassium 3.6, bicarb 33, BUN 42, creatinine 2.2, calcium 6.6, uric acid 7.6, albumin 1.9. Corrected calcium is 8.2. Current Medications: The patient on include; 1. Calcium carbonate. 2. Hydralazine 25 t.i.d. 3. Losartan 100. 4. Metoprolol. 5. Gabapentin. 6. Hydrochlorothiazide. 7. Levothyroxine. 8. Doxepin. Assessment And Plan: 1. Chronic kidney disease, stage 3B/4, stable on her baseline, normal volume. We will continue current medication. 2. Hypocalcemia, non-PTH mediated response to calcitriol and calcium carbonate. We will continue to follow up. 3. Hypomagnesemia, hypokalemia, recovered, resolved. Continue supplement. 4. Hypertension. The patient resumed on her home medications. Agree with hydrochlorothiazide to help with the hypocalcemia and we will follow up the patient. 5. Hypothyroidism. Continue supplement. The patient instructed to follow up with Dr. Loaiza in 2 weeks. Time spent examining the patient [id number], reviewing the data, placing order, discussing with by bedside, discussing with staff member including charge nurse and nursing and hospitalist 45 minutes. ISA Voice ID: [id number] Report ID: [id number] COLIN
[2022-01-06 17:44] LABS: HIV AG/AB 4TH GEN Non-reactive (Non-reactive)
[2022-01-06 19:50] LABS: Albumin, (SPE) 2.2 g/dL (3.8-4.8); Alpha-1-Globulins 0.4 g/dL (0.2-0.3); Alpha-2-Globulins 0.7 g/dL (0.5-0.9); Gamma Globulins 2.3 g/dL (0.8-1.7); INTERPRETATION REPORT
--- NOTE | 2022-01-08 11:03 | CON ---
Date of Consultation: 01/04/2022 Reason For Consultation: Paroxysmal atrial fibrillation. History Of Present Illness: Ms. Gena blackburn 61, has a history of dyslipidemia, chronic diastolic conges tive heart failure, hypertension, neuropathy, came in with hypocalcemia, severe anemia. Her calcium was 5.67, hemoglobin was 6.8. She was COVID positive. Her creatinine is 2.33. TSH was 46.3, went i nto atrial fibrillation. She is back in sinus rhythm now. No cardiac complaints. Past Medical History: As stated above. Allergies: SHE IS ALLERGIC TO CODEINE AND SULFA. Review of Systems: Positive for being a DNR. Social History: Negative. Medications: At home include fenofibrate, Lasix, hydralazine, Neurontin, losartan, and hydrochloroth iazide, metoprolol, Naprosyn. Physical Examination: Vital Signs: Stable, afebrile. HEENT: Negative. Neck: Supple. No bruit. Chest: Clear. Cardiac: Revealed a regular rhythm and rate. No murmurs, gallops, or rubs. Abdomen: Benign. Extremities: Revealed no clubbing, cyanosis, or edema. Diagnostic Data: As stated earlier. Impression And Plan: Paroxysmal atrial fibrillation secondary to electrolyte abnormality, low calciu m, hypothyroidism, COVID, renal failure and anemia. She is back in sinus rhythm now. I will continu e metoprolol. She is not a candidate for anticoagulation with her anemia. Echocardiogram should be done. The rest of her problem including dyslipidemia and hypertension are well controlled. She is a do not resuscitate, but she needs a kidney function attended to. She is COVID positive for severe a nemia, hypocalcemia, hypothyroidism, and all of these need to be treated. I will leave these issues up to Dr. Miguel and other consultants. SOFÍA/ELIJAH Voice ID: [id number] Report ID: [id number]
[2022-01-08 15:09] LABS: HIV AG/AB 4TH GEN Non-reactive (Non-reactive)
[2022-01-08 23:36] LABS: Vitamin D 1,25-Dihydroxy Total 41 pg/mL (18-72); Vitamin D,1,25-OH2, D2 <8 pg/mL
[2022-01-10] MEDS ORDERED: FOLIC ACID PO SCH (09:00)
[2022-01-10] MEDS ORDERED: MV MN PO SCH (09:00)
[2022-01-10] MEDS ORDERED: HERB PO SCH (09:00)
[2022-01-10] MEDS ORDERED: IRON PO SCH (09:00)
== END 2022-01-05 15:00 | disposition home or self-care (01) | DRG 640 ==
LOC: ER 11:31 → ERHOLD 16:48 → 4TH 18:21 → OBSVTOIN 01-04 16:00
PROVIDERS: ADMIT Hospitalist; ATTEND Hospitalist
PROC: 30233N1 Transfusion of Nonautologous Red Blood Cells into Peripheral Vein, Percutaneous Approach (ICD-10-PCS; principal; 2022-01-02)
DX: E83.51 Hypocalcemia (principal); U07.1 COVID-19; N17.0 Acute kidney failure with tubular necrosis; Z68.41 Body mass index [BMI] 40.0-44.9, adult; G25.3 Myoclonus; E83.42 Hypomagnesemia; I12.9 Hypertensive chronic kidney disease with stage 1 through stage 4 chronic kidney disease, or unspecified chronic kidney disease; E11.22 Type 2 diabetes mellitus with diabetic chronic kidney disease; N18.30 Chronic kidney disease, stage 3 unspecified; M06.9 Rheumatoid arthritis, unspecified; E03.9 Hypothyroidism, unspecified; E88.09 Other disorders of plasma-protein metabolism, not elsewhere classified; E66.9 Obesity, unspecified; D63.8 Anemia in other chronic diseases classified elsewhere; E87.6 Hypokalemia; I48.0 Paroxysmal atrial fibrillation
CPT/HCPCS: 36415; 36430; 71045; 74176; 76377; 80048; 80053; 80069; 81001; 82272; 82306; 82310; 82330; 82570; 82607; 82652; 82728; 82746; 82947; 83010; 83520; 83540; 83615; 83735; 83935; 83970; 84100; 84132; 84156; 84165; 84300; 84439; 84443; 84466; 84550; 85014; 85018; 85025; 85044; 86021; 86038; 86160; 86225; 86430; 86706; 86803; 86850; 86900; 86901; 87340; 87389; 87811; 93005; 93306; 94760; 96365; 96366; 97116; 97161; 99285; G0378; J0610; J1815; J1940; J3475; J7050; P9016

== ENCOUNTER 2022-05-09 09:00 | Day surgery (SDC) | payer OTHER ==
[2022-05-09 09:41] LABS: Absolute Lymphocytes (CBC) 1.8 K/uL (0.7-4.9); Hematocrit 31.6 % (36.0-45.0); Lymphocytes % 30.8 % (15.3-44.8); MCV 98.2 fL (80-100); MPV 8.8 fL (7.6-11.3); RBC Red Blood Cell Count 3.22 M/uL (3.86-4.86)
[2022-05-09 09:46] LABS: Protime INR 1.06
[2022-05-09 09:56] LABS: Potassium 3.7 mmol/L (3.5-5.1)
[2022-05-09] MEDS ORDERED: NA CHLORIDE 0.9% 1,000 ML ONE (09:59)
[2022-05-09] MEDS ORDERED: NALOXONE 0.4 MG/ML VIAL ONE (10:06)
[2022-05-09] MEDS ORDERED: FENTANYL CITR 100 MCG/2 ML ONE (10:07)
[2022-05-09] MEDS ORDERED: MIDAZOLAM HCL 2 MG/2 ML INJ ONE (10:07)
[2022-05-09] MEDS ORDERED: FLUMAZENIL 0.1 MG/ML (5 mL VIAL) IV ONE (10:09)
[2022-05-09 12:51] VITALS: BMI 40.9
--- NOTE | 2022-05-09 13:10 | RAD REPORT ---
EXAM DESCRIPTION: CT - Renal Biopsy CT - 05/09/2022 11:20 am CLINICAL HISTORY: RENAL DISEASE COMPARISON: No comparisons FINDINGS: Preoperative diagnosis: Renal failure Post operative diagnosis: Same Conscious Sedation: 45 minutes of IV conscious sedation utilizing fentanyl and midazolam.. Patient was continuously monitored by nursing staff. Contrast used: NONE Estimated blood loss: less than 5 mL Specimens: 3 x 18 gauge core biopsy specimens The patient was placed prone on the table and the left posterior flank area was prepped and draped in the usual sterile fashion. 1% lidocaine was infiltrated into the subcutaneous tissues for local anes thesia. Under computed tomographic guidance, a 17 gauge introducer was advanced into lower pole left kidney. Subsequently, a 18 gauge, 15 cm long, 20 mm throw core biopsy gun was advanced into the lesio n and 3 cores were obtained. Postprocedure imaging demonstrated no complications. Samples were given to pathology for analysis. Th e patient tolerated the procedure without immediate complication and transferred to the recovery room in stable condition. IMPRESSION: Successful CT-guided nonfocal left renal biopsy. All CT scans are performed using dose optimization technique as appropriate and may include automated exposure control or mA/KV adjustment according to patient size.
[2022-05-09 15:11] VITALS: BP 142/56; TEMP 97.9; O2SAT 100
== END 2022-05-09 13:58 | disposition home or self-care (01) ==
LOC: RAD 09:00 → DS 13:58
PROVIDERS: ATTEND Internal Medicine Nephrology
DX: N17.9 Acute kidney failure, unspecified (principal)
CPT/HCPCS: 36415; 50200; 80048; 85025; 85610; 85730; 88300; J2250; J2310; J3010; J7030

== ENCOUNTER 2022-05-30 12:16 | Inpatient (IN) | payer OTHER ==
[2022-05-30 13:03] LABS: SARS-CoV-2 Antigen Rapid Res Negative (Negative)
--- OUTSIDE RECORDS SUMMARY | 2022-05-30 13:41 | XMS REPORT | Continuity of Care Document ---
:1960 Author Organization [facility] t Address [address] [place] [place] [address] Care Team Providers Name Role Phone Ede Stack Primary Care Physician SYSTEM, PROVIDER NOT IN Attending Clinician Unavailable BHANU GOMEZ Attending Clinician Unavailable MARII CROSS Attending Clinician Unavailable AUSTIN, Attending Clinician Unavailable NOELLE BURNETT Attending Clinician Unavailable TIANA BARTHOLOMEW Attending Clinician Unavailable Sophia SAUER, Remigio Attending Clinician Unavailable Roxane Kumar MD Attending Clinician Unavailable Doctor Unassigned, [place] Attending Clinician Unavailable Tito SAUER, Eric Attending Clinician Unavailable Otto Sanchez DO Attending Clinician Chano LOMELI, Oksana Morel Attending Clinician Unavailable OTTO SANCHEZ Attending Clinician Unavailable Ayesha Bateman MD, Erika Attending Clinician Colt Astorga MD Attending Clinician Pino Restrepo MD Attending Clinician Harjeet Burleson MD Attending Clinician CATARINA MARCUS Attending Clinician Unavailable Angeline MA, Catarina Bonilla Attending Clinician Lexy BUTLER Attending Clinician Unavailable Lexy Perea Attending Clinician Noelle Burnett MD Attending Clinician [phone] Shoaib LOMELI, Suze Attending Clinician Unavailable Waleska RICEN, Richa Attending Clinician Unavailable Thalia LOMELI, Jazmine Attending Clinician Unavailable KIM RAND Attending Clinician Unavailable Keyona SAUER, Kim Camacho Attending Clinician Angeles THOMPSON, Stephany Attending Clinician Unavailable Lola SAUER, Roxann Attending Clinician Thiago SAUER, Tiana Attending Clinician Darrel GOULD, Shalonda Attending Clinician Unavailable Gloria Chamberlain Attending Clinician COLT ASTORGA Admitting Clinician Unavailable Harjeet Burleson MD Admitting Clinician NOELLE BURNETT Admitting Clinician Unavailable Payers Payer Name Policy Type Policy Number Effective Date Expiration Date Mitchell byers CIGNA OPEN [id number] 2015 2021 ACCESS/OPEN 00:00:00 00:00:00 ACCESS PLUS AMBETTER SUPERIOR [id number] 2021 HEALTH PLAN 00:00:00 CIGNA II [id number] 2020 00:00:00 Problems Condition Condition Condition Status Onset Resolution Last Treating Co mments Source Name Details Category Date Date Treatment Clinician Date Morbid Morbid Disease Active Univers obesity obesity 6-23 ity of with body with body 00:00: Armina s mass index mass index 00 Me dical of of Branch 40.0-49.9 40.0-49.9 Pancytopen Pancytopen Disease Active U nivers ia ia 6-22 ity of 00:00: [place] 00 Medical Branch Obesity Obesity Disease Active Univers (BMI (BMI 6-22 ity of 30-39.9) 30-39.9) 00:00: [place] 00 Medical Branch M65.9 - M65.9 - Diagnosis Active 2018-02-27 Memoria SYNOVITIS SYNOVITIS 02-21 09:58:00 l AND AND 00:01: Michael TENOSYNOVI TENOSYNOVI 00 TIS, U TIS, U Active 02/21/2018 LOEVLY Briggs Generalize Problem Active 2018-09-16 M emoria d aches Generalize 02-07 12:47:59 l and pains d aches 00:00: [place] n (finding) and pains 00 (finding) Active 02/07/2011 Problem 09/16/2018 LOVELY [place] Diabetes Diabetes Problem Active 2018-09-16 Memoria mellitus mellitus 02-04 12:47:59 l (disorder) (disorder) 00:00: He rmann Active 00 02/04/2011 Problem 09/16/2018 LOVELY [place] Hyperlipid Hyperlipi Problem Active 2018-09-16 Memoria emia(Confi demia(Conf 02-04 12:47:59 l rmed) irmed) 00:00: [place] Active 00 02/04/2011 Problem 09/16/2018 LOVELY [place] Hypertensi Hypertens Problem Active 2018-09-16 Memoria ve zelda 02-04 12:47:59 l disorder, disorder, 00:00: Herm anthony systemic systemic 00 arterial arterial (disorder) (disorder) Active 02/04/2011 Problem 09/16/2018 LOVELY [place] No known No known Disease Unive rs active active ity of problems problems [facility] Arthritis Arthritis Problem Active 2018-09-16 Memoria (disorder) (disorder) 12:47:59 l Active Michael Problem 09/16/2018 LOVELY [place] Diabetes Diabetes Problem Active 2018-09-16 Memoria mellitus mellitus 12:47:59 l type 2 type 2 Michael (disorder) (disorder) Active Problem 09/16/2018 Automatica lly added by Discern Expert with order of Add Problem Diabetes Type II on November 10, 2017 10:20:40 CDT with order ID: [id number] 7.0 entered by Ramon Grayson. LOVELY [place] Morbid Morbid Problem Active 2018-09-16 Parag clovis obesity obesity 12:47:59 l (disorder) (disorder) He rmann Active Problem 09/16/2018 LOVELY Briggs Pain in Pain in Problem Active 2018-09-16 Me moria lower limb lower limb 12:47:59 l (finding) (finding) Herm anthony Active Problem 09/16/2018 LOVELY Briggs Paresthesi Problem Active 2018-09-16 M emoria a of hand Paresthesi 12:47:59 l (finding) a of hand Herm anthony (finding) Active Problem 09/16/2018 LOVELY [place] Posterior Posterior Problem Active 2018-09-16 Memoria interosseo interosseo 12:47:59 l us nerve us nerve Davis n lesion lesion (disorder) (disorder) Active Problem 09/16/2018 LOVELY [place] Radial Radial Problem Active 2018-09-16 Parag clovis neuropathy neuropathy 12:47:59 l (disorder) (disorder) Bao rmann Active Problem 09/16/2018 LOVELY [place] Rheumatoid Rheumatoi Problem Active 2018-09-16 Memoria arthritis d 12:47:59 l (disorder) arthritis Her newman (disorder) Active Problem 09/16/2018 LOVELY [place] History of Past Illness Condition Condition Condition Status Onset Resolution Last Treating Co mments Source Name Details Category Date Date Treatment Clinician Date Other Other Problem 2017-2018-09-16 2018-09-16 M emoria synovitis synovitis 03-04 12:47:59 12:47:59 l and and 02:56: Michael tenosynovi tenosynovi 33 tis, right tis, right forearm forearm 03/04/2018 9 LOVELY Briggs Allergies, Adverse Reactions, Alerts Allergy Allergy Status Severity Reaction(s) Onset Inactive Treating Comm ents Source Name Type Date Date Clinician Sulfa Propensi Active Rash 2021- Univers (Sulfona ty to 1-01 ity of mide adverse 00:00: [place] Antibiot reaction 00 Medica l ics) s Branch SULFA Drug Active Rash Univers (SULFONA Class 1-01 ity of MIDE 00:00: [place] ANTIBIOT 00 Medical ICS) Branch Sulfa Propensi Active Rash 2021- Univers (Sulfona ty to 1-01 ity of [...] Propensi Active Swelling Unive rs ty to 30 ity of adverse 00:00: [place] reaction 00 Medical s Branch codeine [facility] [place] Social History Social Habit Start Date Stop Date Quantity Comments Source History [facility] Health Alcohol Comment History [facility] Alcohol Std Drinks History [facility] Alcohol Binge Alcohol intake 2022-04-14 2022-04-14 0 /d [facility] 00:00:00 00:00:00 Exposure to 2022-01-15 2022-01-25 Not sure [facility] SARS-CoV-2 00:00:00 09:10:00 (event) Tobacco use and 2021-12-06 2021-12-06 Smokeless tobacco Un iversity of exposure 00:00:00 00:00:00 non-user [place] [facility] [place] History SDOH 2021-01-21 2021-01-21 1 [facility] Alcohol Frequency 00:00:00 00:00:00 Sex Ass[birth year] At [birth year] [facility] 00:00:00 00:00:00 Smoking Status Start Date Stop Date Source [facility] History [facility] Medications Ordered Filled Start Stop Current Ordering Indication Dosage Frequency Signature Comments Components Source Medication Medication Date Date Medication? Clinician (SIG) Name Name Carboxymeth 2021-06- No Administer [facility] ylcellulose 06-14 into Health Sodium (EYE 14:43: 00:00 affected DROPS OP) 51 :00 eye(s). Calcium 2021-06- No QD Take by UT Carbonate 06-14 mouth 1 Health Antacid 14:43: 00:00 (one) time (TUMS E-X 48 :00 each day. PO) fenofibrate 2021-06 Yes 1 (one) UT (Tricor) 54 1-03 time each Hea lth MG tablet 14:35: day at the 08 same time. tolterodine 2021-06 Yes TAKE 1 UT LA (Detrol 06-14 CAPSULE Health LA) 4 MG 24 14:33: DAILY hr capsule 14 Sennosides- 2021-06 Yes QD Take by UT Docusate 03 mouth 1 Health Sodium 14:33: (one) time (STOOL 14 each day. SOFTENER/LA XATIVE PO) traMADol 2021-06 Yes 50mg Q.[id number] Take 50 mg UT (Ultram) 50 06-14 [id number] by mouth 3 Health MG tablet 14:33: 3D (three) 14 times a day. valsartan 2021-06 Yes 320mg QD Take 320 UT (Diovan) 1-03 mg by Health 160 MG 14:33: mouth 1 tablet 14 (one) time each day. tiZANidine 2021-06 Yes 4mg Q.5D Take 4 mg UT (Zanaflex) 03 by mouth 2 Hea lth 4 MG 14:33: (two) capsule 14 times a day. furosemide 2021-06 Yes 40mg QD Take 40 mg U T (Lasix) 40 03 by mouth 1 Hea lth MG tablet 14:33: (one) time 14 each day. bimatoprost 2021-06 Yes 1[drp] 1 drop UT (Lumigan) 1-03 every Health 0.01 % 14:33: night. ophthalmic 14 solution gabapentin 2021-06 Yes 300mg Take 300 UT (Neurontin) 1-03 mg by Health 300 MG 14:33: mouth. capsule 14 UNABLE TO 2021-06 Yes Med Name: UT FIND 06-14 Nuretin Health 14:33: Eye GTTS 14 hydroxychlo 2021-06- Yes [id number] 200mg QD Take 1 UT roquine 06-1403 tablet Health (Plaquenil) 00:00: 05:59 (200 mg 200 MG 00 :00 total) by tablet mouth 1 (one) time each day. Levemir Yes [id number] 45U QD Inject 45 UT FlexTouch 9-27 Units Health 100 UNIT/ML 00:00: under the injection 00 skin 1 (one) time each day. semaglutide Yes [id number] .5mg Inject 0.5 UT (Ozempic) 2 9-27 mg under Heal th MG/1.5ML 00:00: the skin 1 solution 00 (one) time pen-injecto per week. r Levemir Yes [id number] 45U QD Inject 45 UT FlexTouch 9-27 Units Health 100 UNIT/ML 00:00: under the injection 00 skin 1 (one) time each day. semaglutide Yes [id number] .5mg Inject 0.5 UT (Ozempic) 2 9-27 mg under Heal th MG/1.5ML 00:00: the skin 1 solution 00 (one) time pen-injecto per week. r insulin 2022- Yes [id number] 15U Inject 15 UT aspart 9 09-28 Units Health (NovoLOG) 00:00: 04:59 under the 100 UNIT/ML 00 :00 skin in injection the morning and 15 Units at noon and 15 Units in the evening. Inject with meals. insulin 2022- Yes [id number] 15U Inject 15 UT aspart 03-08-28 Units Health (NovoLOG) 00:00: 04:59 under the 100 UNIT/ML 00 :00 skin in injection the morning and 15 Units at noon and 15 Units in the evening. Inject with meals. hydroCHLORO Yes UT thiazide 8-30 Health (Microzide) 00:00: 12.5 MG 00 capsule Levemir Yes [id number] 40U QD Inject 40 UT FlexTouch 8-16 Units Health 100 UNIT/ML 00:00: under the injection 00 skin 1 (one) time each day. insulin 2022- No [id number] 12U Inject 12 UT aspart 8-16 08-17 Units Health (NovoLOG) 00:00: 04:59 under the 100 UNIT/ML 00 :00 skin in injection the morning and 12 Units at noon and 12 Units in the evening. Inject with meals. Levemir 2021- No [id number] 40U QD Inject 40 UT FlexTouch 8-16 09-27 Units Health 100 UNIT/ML 00:00: 00:00 under the injection 00 :00 skin 1 (one) time each day. insulin 2021- No [id number] 12U Inject 12 UT aspart 8-16 09-27 Units Health (NovoLOG) 00:00: 00:00 under the 100 UNIT/ML 00 :00 skin in injection the morning and 12 Units at noon and 12 Units in the evening. Inject with meals. pantoprazol Yes 1{tbl} 1 tablet. UT e 01-03 Health (ProtoNix) 00:00: 40 MG EC 00 tablet Carboxymeth Yes Administer UT ylcellulose 7-21 into Health Sodium (EYE 10:25: affected DROPS OP) 09 eye(s). UNABLE TO Yes Med Name: UT FIND 7-21 Mendixetin Health 10:25: Eye GTTS 09 Carboxymeth Yes Administer UT ylcellulose 7-21 into Health Sodium (EYE 10:25: affected DROPS OP) 09 eye(s). UNABLE TO Yes Med Name: UT FIND 7-21 Nuretin Health 10:25: Eye GTTS 09 Carboxymeth Yes Administer UT ylcellulose 7-21 into Health Sodium (EYE 10:25: affected DROPS OP) 09 eye(s). UNABLE TO Yes Med Name: UT FIND 7-21 Mendixetin Health 10:25: Eye GTTS 09 Carboxymeth Yes Administer UT ylcellulose 7-21 into Health Sodium (EYE 10:25: affected DROPS OP) 09 eye(s). UNABLE TO Yes Med Name: UT FIND 7-21 Nuretin Health 10:25: Eye GTTS 09 gabapentin Yes 300mg Take 300 UT (Neurontin) 7-21 mg by Health 300 MG 10:22: mouth. capsule 41 gabapentin 0 Yes 300mg Take 300 UT (Neurontin) 7-21 mg by Health 300 MG 10:22: mouth. capsule 41 gabapentin 2021-0 Yes 300mg Take 300 UT (Neurontin) 7-21 mg by Health 300 MG 10:22: mouth. capsule 41 gabapentin 2021-0 Yes 300mg Take 300 UT (Neurontin) 7-21 mg by Health 300 MG 10:22: mouth. capsule 41 tolterodine 0 Yes TAKE 1 UT LA (Detrol 7-21 CAPSULE Health LA) 4 MG 24 10:15: DAILY hr capsule 23 Sennosides- 2021-0 Yes QD Take by UT Docusate 7- mouth 1 Health Sodium 10:15: (one) time (STOOL 23 each day. SOFTENER/LA XATIVE PO) traMADol 2022-0 Yes 50mg Q.[id number] Take 50 mg UT (Ultram) 50 7-21 [id number] by mouth 3 Health MG tablet 10:15: 3D (three) 23 times a day. valsartan 2022-0 Yes 320mg QD Take 320 UT (Diovan) 7-21 mg by Health 160 MG 10:15: mouth 1 tablet 23 (one) time each day. tiZANidine 2022-0 Yes 4mg Q.5D Take 4 mg UT (Zanaflex) 7-21 by mouth 2 Hea lth 4 MG 10:15: (two) capsule 23 times a day. furosemide 2022-0 Yes 40mg QD Take 40 mg U T (Lasix) 40 7-21 by mouth 1 Hea lth MG tablet 10:15: (one) time 23 each day. Calcium 2022-0 Yes QD Take by UT Carbonate - mouth 1 Health Antacid 10:15: (one) time (TUMS E-X 23 each day. PO) bimatoprost 2021-0 Yes 1[drp] 1 drop UT (Lumigan) - every Health 0.01 % 10:15: night. ophthalmic 23 solution tolterodine 2021-0 Yes TAKE 1 UT LA (Detrol 12-30 CAPSULE Health LA) 4 MG 24 10:15: DAILY hr capsule 23 Sennosides- 2021-0 Yes QD Take by UT Docusate 7- mouth 1 Health Sodium 10:15: (one) time (STOOL 23 each day. SOFTENER/LA XATIVE PO) traMADol 2022-0 Yes 50mg Q.[id number] Take 50 mg UT (Ultram) 50 7- [id number] by mouth 3 Health MG tablet 10:15: 3D (three) 23 times a day. valsartan 2022-0 Yes 320mg QD Take 320 UT (Diovan) 7-21 mg by Health 160 MG 10:15: mouth 1 tablet 23 (one) time each day. tiZANidine 2022-0 Yes 4mg Q.5D Take 4 mg UT (Zanaflex) 7-21 by mouth 2 Hea lth 4 MG 10:15: (two) capsule 23 times a day. furosemide 2022-0 Yes 40mg QD Take 40 mg U T (Lasix) 40 7-21 by mouth 1 Hea lth MG tablet 10:15: (one) time 23 each day. Calcium 2022-0 Yes QD Take by UT Carbonate 7- mouth 1 Health Antacid 10:15: (one) time (TUMS E-X 23 each day. PO) bimatoprost 2022-0 Yes 1[drp] 1 drop UT (Lumigan) 7- every Health 0.01 % 10:15: night. ophthalmic 23 solution tolterodine 2022-0 Yes TAKE 1 UT LA (Detrol 7-21 CAPSULE Health LA) 4 MG 24 10:15: DAILY hr capsule 23 Sennosides- 2021-0 Yes QD Take by UT Docusate - mouth 1 Health Sodium 10:15: (one) time (STOOL 23 each day. SOFTENER/LA XATIVE PO) traMADol 2022-0 Yes 50mg Q.[id number] Take 50 mg UT (Ultram) 50 - [id number] by mouth 3 Health MG tablet 10:15: 3D (three) 23 times a day. valsartan 2022-0 Yes 320mg QD Take 320 UT (Diovan) 7-21 mg by Health 160 MG 10:15: mouth 1 tablet 23 (one) time each day. tiZANidine 2022-0 Yes 4mg Q.5D Take 4 mg UT (Zanaflex) 7- by mouth 2 Hea lth 4 MG 10:15: (two) capsule 23 times a day. furosemide 2022-0 Yes 40mg QD Take 40 mg U T (Lasix) 40 7-21 by mouth 1 Hea lth MG tablet 10:15: (one) time 23 each day. Calcium 2022-0 Yes QD Take by UT Carbonate 7-21 mouth 1 Health Antacid 10:15: (one) time (TUMS E-X 23 each day. PO) bimatoprost 2022-0 Yes 1[drp] 1 drop UT (Lumigan) 7- every Health 0.01 % 10:15: night. ophthalmic 23 solution tolterodine 2022-0 Yes TAKE 1 UT LA (Detrol 7-21 CAPSULE Health LA) 4 MG 24 10:15: DAILY hr capsule 23 Sennosides- 2022-0 Yes QD Take by UT Docusate 12-30 mouth 1 Health Sodium 10:15: (one) time (STOOL 23 each day. SOFTENER/LA XATIVE PO) traMADol 2021-0 Yes 50mg Q.[id number] Take 50 mg UT (Ultram) 50 12-30 [id number] by mouth 3 Health MG tablet 10:15: 3D (three) 23 times a day. valsartan 2021-0 Yes 320mg QD Take 320 UT (Diovan) 7- mg by Health 160 MG 10:15: mouth [...] 23 solution Cholecalcif 2021-0 Yes UT maya 12-27 Health (Vitamin 00:00: D3) 1.25 MG 00 (83698 UT) capsule hydrALAZINE 2021-0 Yes UT (Apresoline 12-27 Health ) 25 MG 00:00: tablet 00 Cholecalcif 202-0 Yes UT maya 12-27 Health (Vitamin 00:00: D3) 1.25 MG 00 (61207 UT) capsule hydrALAZINE 2022-0 Yes UT (Apresoline 12-27 Health ) 25 MG 00:00: tablet 00 Cholecalcif 202-0 Yes UT maya 718 Health (Vitamin 00:00: D3) 1.25 MG 00 (95103 UT) capsule hydrALAZINE 2-0 Yes UT (Apresoline 12-27 Health ) 25 MG 00:00: tablet 00 Cholecalcif 2021-0 Yes UT maya 7-18 Health (Vitamin 00:00: D3) 1.25 MG 00 (07086 UT) capsule hydrALAZINE 2021-0 Yes UT (Apresoline 18 Health ) 25 MG 00:00: tablet 00 Cholecalcif 0 Yes UT maya 18 Health (Vitamin 00:00: D3) 1.25 MG 00 (02516 UT) capsule hydrALAZINE 0 Yes UT (Apresoline 18 Health ) 25 MG 00:00: tablet 00 glucose 2021-0 Yes [id number] TEST THREE UT blood 7-15 TIMES A Health (OneTouch 00:00: DAY Verio) test 00 strip glucose 2021-0 Yes [id number] TEST THREE UT blood 7-15 TIMES A Health (OneTouch 00:00: DAY Verio) test 00 strip glucose 2021-0 Yes [id number] TEST THREE UT blood 7-15 TIMES A Health (OneTouch 00:00: DAY Verio) test 00 strip glucose 2021-0 Yes [id number] TEST THREE UT blood 7-15 TIMES A Health (OneTouch 00:00: DAY Verio) test 00 strip glucose 2021-0 Yes [id number] TEST THREE UT blood 7-15 TIMES A Health (OneTouch 00:00: DAY Verio) test 00 strip dapaglifloz 0 Yes 10mg Take 10 mg Univers in 12-17 by mouth ity of (FARXIGA) 02:53: daily. [place] 10 mg 01 Medical tablet Branch dulaglutide Yes inject Univ ers (TRULICITY) 08 under the ity of 0.75 mg/0.5 02:53: [...] (3 mL) injection hydralazine Yes Take by Uni vers HCl 12-17 mouth. ity of (HYDRALAZIN 02:53: [place] E [...] of (FARXIGA) 02:53: daily. [place] 10 mg Medical tablet Branch dulaglutide Yes inject Univ [...] (3 mL) injection hydralazine Yes Take by Uni vers HCl 7-08 mouth. ity of (HYDRALAZIN 02:53: [...] Yes 10mg Take 10 mg Univers in 708 by mouth ity of (FARXIGA) 02:53: daily. [...] (3 mL) injection hydralazine Yes Take by Uni vers HCl 7-08 mouth. ity of (HYDRALAZIN 02:53: [...] as Medical needed for Branch Insomnia. gabapentin 0 Yes 300mg Take 300 Un shayna 300 mg 7-08 mg by ity of capsule 02:53: mouth 2 [place] 01 (two) Medical times Branch daily. empaglifloz Yes 1{tbl} Take 1 Un shayna in 7-08 tablet by ity of (JARDIANCE) 02:53: mouth [place] 25 mg Tab 01 daily. Medical Branch foLIC acid 2021- No [id number] 4mg Take 4 Univers 1 mg tablet 12-16 tablets by i ty of 00:00: 04:59 mouth [place] 00 :00 daily for Medical 30 days. Branch foLIC acid 2021- No [id number] 4mg Take 4 Univers 1 mg tablet 12-16 tablets by i ty of 00:00: 04:59 mouth [place] 00 :00 daily for Medical 30 days. Branch foLIC acid 2021- No [id number] 4mg Take 4 Univers 1 mg tablet 12-16 tablets by i ty of 00:00: 04:59 mouth [place] 00 :00 daily for Medical 30 days. Branch foLIC acid 2021- No [id number] 4mg Take 4 Univers 1 mg tablet 12-16 tablets by i ty of 00:00: 04:59 mouth [place] 00 :00 daily for Medical 30 days. Branch foLIC acid 2021- No [id number] 4mg Take 4 Univers 1 mg tablet 12-16 tablets by i ty of 00:00: 04:59 mouth [place] 00 :00 daily for Medical 30 days. Branch LEVOTHYROXI Yes None Univer s NE 200 MCG 12-15 Entered ity of ORAL TAB 14:54: [address] CALCITRIOL Yes None Univers 0.5 MCG 12-15 Entered ity of ORAL CAP 14:54: [address] FOLTRIN Yes None Univers ORAL 12-15 Entered ity of 14:54: [address] AMLODIPINE Yes None Univers BESYLATE 12-15 Entered ity of ORAL 14:54: [address] dapaglifloz Yes 10mg Take 10 mg Univers in 12-15 by mouth ity of (FARXIGA) 14:54: daily. [place] 10 mg 28 Medical tablet Branch dulaglutide Yes inject Univ ers (TRULICITY) 706 under the ity of 0.75 mg/0.5 14:54: skin [place] mL PnIj 28 weekly. Medical Branch insulin Yes 40U inject 40 Unive rs aspart -06 Units ity of (NOVOLOG 14:54: [place] the [place] FLEXPEN 28 skin every Medica l U-100 morning. Branch INSULIN SC) insulin Yes 30U inject 30 Unive rs aspart 7-06 Units ity of U-100 14:54: under the [place] (NOVOLOG 28 skin every Medic al FLEXPEN evening. Branch U-100 INSULIN) 100 unit/mL (3 mL) injection hydralazine Yes Take by Uni vers HCl 7 mouth. ity of (HYDRALAZIN 14:54: [...] 300mg Take 300 Un shayna 300 mg 7 mg by ity of capsule 14:54: mouth 2 [place] 28 (two) Medical times Branch daily. empaglifloz Yes 1{tbl} Take 1 Un shayna in 12-15 tablet by ity of (JARDIANCE) 14:54: mouth [place] 25 mg Tab 28 daily. Medical Branch LEVOTHYROXI Yes None Univer s NE 200 MCG 7- Entered ity of ORAL TAB 14:54: [place] [address] Medical Branch CALCITRIOL Yes None Univers 0.5 MCG 7 Entered ity of ORAL CAP 14:54: [place] [address] Medical Branch FOLTRIN Yes None Univers ORAL 7- Entered ity of 14:54: [place] [address] Medical Branch AMLODIPINE Yes None Univers BESYLATE 7- Entered ity of ORAL 14:54: [place] [address] Medical Branch dapaglifloz Yes 10mg Take 10 mg Univers in 12-15 by mouth ity of (FARXIGA) 14:54: daily. [place] 10 mg 28 Medical tablet Branch dulaglutide Yes inject Univ ers (TRULICITY) 706 under the ity of 0.75 mg/0.5 14:54: skin [place] mL PnIj 28 weekly. Medical Branch insulin 2022-0 Yes 40U inject 40 Unive rs aspart [...] (3 mL) injection hydralazine Yes Take by Uni vers HCl 7-06 mouth. ity of (HYDRALAZIN 14:54: [place] E ORAL) 28 Medical Branch iocetamic Yes 1{capsu Take 1 Uni vers acid 7- le} capsule by ity of (CHOLEBRINE 14:54: mouth [place] ORAL) 28 daily. Medical Branch doxepin 10 Yes 10mg Take 10 mg U nivers mg capsule -06 by mouth ity o f 14:54: every [place] 28 evening as Medical needed for Branch Insomnia. gabapentin Yes 300mg Take 300 Un shayna 300 mg 7-06 mg by ity of capsule 14:54: mouth 2 [place] 28 (two) Medical times Branch daily. empaglifloz Yes 1{tbl} Take 1 Un shayna in -06 tablet by ity of (JARDIANCE) 14:54: mouth [place] 25 mg Tab 28 daily. Medical Branch LEVOTHYROXI Yes None Univer s NE 200 MCG 7-06 Entered ity of ORAL TAB 14:54: Medical Branch CALCITRIOL Yes None Univers 0.5 MCG 7-06 Entered ity of ORAL CAP 14:54: [place] [address] Medical Branch FOLTRIN Yes None Univers ORAL 7-06 Entered ity of 14:54: [place] [address] Medical Branch AMLODIPINE Yes None Univers BESYLATE 7-06 Entered ity of ORAL 14:54: [place] Medical Branch LEVOTHYROXI Yes None Univer s NE 200 MCG 7-06 Entered ity of ORAL TAB 14:54: [place] [address] Medical Branch CALCITRIOL Yes None Univers 0.5 MCG 7-06 Entered ity of ORAL CAP 14:54: [place] [address] Medical Branch FOLTRIN 2022-0 Yes None Univers ORAL 7-06 Entered ity of 14:54: [address] AMLODIPINE Yes None Univers BESYLATE 12-15 Entered ity of ORAL 14:54: [address] LEVOTHYROXI Yes None Univer s NE 200 MCG 12-15 Entered ity of ORAL TAB 14:54: [address] CALCITRIOL Yes None Univers 0.5 MCG 12-15 Entered ity of ORAL CAP 14:54: [address] FOLTRIN Yes None Univers ORAL 12-15 Entered ity of 14:54: [address] AMLODIPINE Yes None Univers BESYLATE 12-15 Entered ity of ORAL 14:54: [address] pantoprazol Yes 40mg 40 mg, Univ ers e 12-15 Oral, ity of (PROTONIX) 14:45: DAILY, [place] EC tablet 00 First dose Medi abdon 40 mg on Mon Branch 12/15/21 at 0945, Until Discontinu ed, Routine insulin Yes 5U 5 Units, Univer s lispro 12-15 Subcutaneo ity of (human) 13:00: us, TID [place] (HumaLOG 00 MEALS, Medical U-100) First dose Branch injection 5 (after Units last modificati on) on Mon12/15/21 at 0800, Until Discontinu ed, Routine PREDNISONE 2021- No None Univer s 10 MG ORAL 12-15 Entered ity o f TAB 11:40: 00:00 [place] 13 :00 [facility] HYDROCHLORO 2021-2021- No None Unive rs THIAZIDE 25 12-15 Entered ity of MG ORAL TAB 11:40: 00:00 [place] 13 :00 [facility] Branch METHOTREXAT 2021-2021- No None Unive rs E SODIUM 12-15 Entered ity of 2.5 MG ORAL 11:40: 00:00 [place] TAB 13 :00 [facility] Branch FOLIC ACID 2021-2021- No None Univer s 1 MG ORAL 12-15 Entered ity of TAB 11:40: 00:00 [place] 13 :00 [facility] Branch METFORMIN 2021-0 2021- No None Univers 500 MG ORAL 12-15 Entered ity of TAB 11:40: 00:00 [place] 13 :00 Medical Branch ENALAPRIL 2021- No None Univers MALEATE 20 12-15 Entered ity o f MG ORAL TAB 11:40: 00:00 [place] 13 :00 [facility] Branch HYDROXYCHLO 2021- No None Unive rs ROQUINE 200 12-15 Entered ity of MG ORAL TAB 11:40: 00:00 [place] 13 :00 [facility] Branch losartan-hy No 1{tbl} Take 1 U nivers drochloroth 12-15 tablet by it y of iazide 11:40: 00:00 mouth [place] 100-12.5 mg 13 :00 daily. Medica l per tablet Branch hydrALAZINE No 25mg Take 25 mg Univers 25 mg 12-15 by mouth 3 ity of tablet 11:40: 00:00 (three) [place] 13 :00 times Medical daily. Branch insulin [...] dose [place] 2 mg/mL 00 :00 on Medical oral 12/14/21 at Branch suspension 2000, 40 mg Until Discontinu ed, Routine Levemir Yes [facility] FlexTouch - Health 100 UNIT/ML 00:00: injection 00 Levemir Yes [facility] FlexTouch 12-15 Health 100 UNIT/ML 00:00: injection 00 metoprolol Yes 12.5mg Take 12.5 [facility] tartrate 7-06 mg by Health (Lopressor) 00:00: mouth. 25 MG 00 tablet metoprolol 0 Yes 12.5mg Take 12.5 UT tartrate 7-06 mg by Health (Lopressor) 00:00: mouth. 25 MG 00 tablet metoprolol Yes 12.5mg Take 12.5 UT tartrate 7-06 mg by [facility] (Lopressor) 00:00: mouth. 25 MG 00 tablet metoprolol Yes 25mg Q.5D Take 25 mg U T tartrate 7-06 by mouth Health (Lopressor) 00:00: in the 25 MG 00 morning tablet and 25 mg in the evening. Levemir 2021- No 40U QD Inject 40 [facility] FlexTouch 12-15 08-16 Units Health 100 UNIT/ML 00:00: 00:00 under the injection 00 :00 skin 1 (one) time each day. metoprolol 2021- No 12.5mg Take 12.5 UT tartrate 12-15 08-06 mg by [facility] (Lopressor) 00:00: 04:59 mouth. 25 MG 00 :00 tablet pantoprazol 2021- No 1{tbl} QD Take 1 U T e 12-15 tablet by [facility] (ProtoNix) 00:00: 04:59 mouth 1 40 MG EC 00 :00 (one) time tablet each day. pantoprazol 2021- No [id number] 40mg Take 1 Univers e 40 mg EC 12-15- tablet by ity of tablet 00:00: 04:59 mouth [place] 00 :00 daily for Medical 30 days. Branch metoprolol 2021- No [id number] 12.5mg Take 0.5 [facility] tartrate 25 12-15- tablets by i ty of mg tablet 00:00: 04:59 mouth 2 [place] 00 :00 (two) Medical times [place] daily for 30 days. pantoprazol 2021- No [id number] 40mg Take 1 Univers e 40 mg EC 12-15- tablet by ity of tablet 00:00: 04:59 mouth [place] 00 :00 daily for Medical 30 days. Branch metoprolol 2021- No [id number] 12.5mg Take 0.5 [facility] tartrate 25 12-15-06 tablets by i ty of mg tablet 00:00: 04:59 mouth 2 [place] 00 :00 (two) Medical times [place] daily for 30 days. Insulin 2021- No [id number] 12U inject 12 [facility] Detemir 12-15- Units ity of (LEVEMIR 00:00: 04:59 under the [place] as FLEXTOUCH 00 :00 skin 2 Medical U-100 (two) Branch INSULN) 100 times unit/mL (3 daily for mL) 30 days. injection pantoprazol 2021- No [id number] 40mg Take 1 Univers e 40 mg EC 12-15- tablet by ity of tablet 00:00: 04:59 mouth [place] 00 :00 daily for Medical 30 days. Branch metoprolol 2021- No [id number] 12.5mg Take 0.5 [facility] tartrate 25 12-15- tablets by i ty of mg tablet 00:00: 04:59 mouth 2 [place] 00 :00 (two) Medical times Branch daily for 30 days. Insulin 2021- No [id number] 12U inject 12 Univers Detemir 12-15- Units ity of (LEVEMIR 00:00: 04:59 under the [place] FLEXTOUCH 00 :00 skin 2 Medical U-100 (two) Branch INSULN) 100 times unit/mL (3 daily for mL) 30 days. injection pantoprazol 2021- No [id number] 40mg Take 1 Univers e 40 mg EC 12-15 tablet by ity of tablet 00:00: 04:59 mouth [place] 00 :00 daily for Medical 30 days. Branch metoprolol 2021- No [id number] 12.5mg Take 0.5 [facility] tartrate 25 12-15 tablets by i ty of mg tablet 00:00: 04:59 mouth 2 [place] 00 :00 (two) Medical times Branch daily for 30 days. Insulin 2021- No [id number] 12U inject 12 Univers Detemir 12-15- Units ity of (LEVEMIR 00:00: 04:59 under the [place] FLEXTOUCH 00 :00 skin 2 Medical U-100 (two) Branch INSULN) 100 times unit/mL (3 daily for mL) 30 days. injection pantoprazol 2021- No [id number] 40mg Take 1 Univers e 40 mg EC 12-15 tablet by ity of tablet 00:00: 04:59 mouth [place] 00 :00 daily for Medical 30 days. Branch metoprolol 2021- No [id number] 12.5mg Take 0.5 [facility] tartrate 25 12-15 tablets by i ty of mg tablet 00:00: 04:59 mouth 2 [place] 00 :00 (two) Medical times Branch daily for 30 days. Insulin 2021- No [id number] 12U inject 12 Univers Detemir 12-15 Units ity of (LEVEMIR 00:00: 04:59 under the [place] FLEXTOUCH 00 :00 skin 2 Medical U-100 (two) Branch INSULN) 100 times unit/mL (3 daily for mL) 30 days. injection lidocaine 2021- No [id number] 10mL Take 10 mL Univers 2% viscous 12-15 by mouth ity of 2 % 00:00: 04:59 every 6 [place] solution 00 :00 (six) Medical hours as Branch needed for Oral mucosal pain for up to 7 days. maalox:diph No [id number] 15mL Sw[place] and Univers enhydrAMINE 12-15 spit out ity of :lidocaine 00:00: 04:59 15 mL 4 [place] 2 % viscous 00 :00 (four) Medica l 1:1:1 times Branch daily for 7 days. lidocaine 2021- No [id number] 10mL Take 10 mL Univers 2% viscous 12-15 by mouth ity of 2 % 00:00: 04:59 every 6 [place] solution 00 :00 (six) Medical hours as Branch needed for Oral mucosal pain for up to 7 days. maalox:diph No [id number] 15mL Swish and Univers enhydrAMINE 12-15 spit out ity of :lidocaine 00:00: 04:59 15 mL 4 [place] 2 % viscous 00 :00 (four) Medica l 1:1:1 times Branch daily for 7 days. lidocaine 2021- No [id number] 10mL Take 10 mL Univers 2% viscous 12-15 by mouth ity of 2 % 00:00: 04:59 every 6 [place] solution 00 :00 (six) Medical hours as Branch needed for Oral mucosal pain for up to 7 days. maalox:diph No [id number] 15mL Swish and Univers enhydrAMINE 12-15 spit [...] On g Mon12/14/21 at 1445, Routine furosemide 2021- No 40mg 40 mg, Univ ers (LASIX) 12-14 Slow IV ity of injection 04:15: 03:49 Push, [place] 40 mg 00 :00 ONCE, 1 Medical dose, On Branch Mon12/13/21 at 2315, Routine insulin 2021- No 10U 10 Units, [facility] ers glargine 12-14 Subcutaneo ity of (LANTUS 01:00: 22:45 us, BID, [place] U-100) 00 :25 First dose Medical injection (after Branch 10 Units last modificati on) on Mon12/13/21 at 2000, Until Discontinu ed, Routine insulin No 4U 4 Units, [place] [facility] rs lispro 12-13 Subcutaneo ity of (human) 22:00: 22:45 us, TID [place] (HumaLOG 00 :25 MEALS, Medical U-100) First dose Branch injection 4 (after Units last modificati on) on Mon12/13/21 at 1700, Until Discontinu ed, Routine insulin 2021- No 15U 15 Units, [facility] ers glargine 12-13 Subcutaneo ity of (LANTUS [...] Branch 18 Units last modificati on) on [place] 12/12/21 at 0900, Until Discontinu ed, Routine [...] Discontinu ed, Routine, Pain (scale 7-10) insulin No 18U 18 Units, Univ ers glargine 12-11 Subcutaneo ity of (LANTUS 01:00: 17:06 us, BID, [place] U-100) 00 :28 First dose Medical injection (after Branch 18 Units last modificati on) on Mon12/10/21 at 2000, Until Discontinu ed, Routine vancomycin No 1000mg 1,000 mg, Univers (VANCOCIN) 12-11 IV ity of 1,000 mg in 00:30: 02:54 [place], [place] NaCl 0.9% 00 :00 ONCE, 1 Medical [...] Routine insulin 2021- No 8U 8 Units, [facility] lispro 12-10 Subcutaneo ity of (human) 22:00: 16:27 us, TID [place] (HumaLOG 00 :22 MEALS, Medical U-100) First dose Branch injection 8 (after Units last modificati on) on Mon12/10/21 at 1700, Until Discontinu ed, Routine sulfur 2021- No [id number] 5mL 5 mL, [place] [facility] rs hexafluorid 12-10 Intravenou i ty of e microsphr 17:00: 17:00 s, ONCE, 1 [place] (LUMASON) 00 :00 dose, On Medica l injection 5 Mon12/10/21 Br anch mL at 1200, Routine
tribunal member approving Restricted medication : MARTHA INGRAM insulin 2021- No 20U 20 Units, [facility] ers glargine 12-10 Subcutaneo ity of (LANTUS 14:00: 19:29 us, DAILY, [place] U-100) 00 :04 First dose Medical injection (after Branch 20 Units last modificati on) on Mon12/10/21 at 0900, Until Discontinu ed, Routine D5W 0.9% 2021- No 1000mL at 60 [place] [facility] rs NaCl (NS) 12-10 07 mL/hr, ity of IV infusion 09:30: 13:34 1,000 mL, [place] 1,000 mL 00 :03 IV Medical Infusion, Branch CONTINUOUS , Starting on Mon12/10/21 at 0430, Until 12/12/21 at 0834, Routine digoxin No 250ug 250 mcg, [facility] ers (LANOXIN) 12-10 Intravenou ity of injection 08:26: 09:03 s, ONCE, 1 [place] 250 mcg 00 :00 dose, On Medical Mon12/10/21 Branch at 0330, Routine metoprolol Yes 12.5mg 12.5 mg, U nivers tartrate 12-10 Oral, BID, ity o f (LOPRESSOR) 02:15: First dose [place] tablet 12.5 00 (after Medica l mg last Branch modificati on) on [place] 12/09/21 at 2115, Until Discontinu ed, Routine [...] ity of 1,000 mg in 21:15: 18:10 [place], [place] NaCl 0.9% 00 :47 Q24H ABX, Medic al (NS) 250 mL First dose Br anch VIAL-MATE on [place] IV 12/09/21 at piggyback 1615, Until Discontinu ed, Administer over 60 Minutes, 250 mL
Reas on for Anti-Infec tive: Empiric Therapy for Suspected Infection& lt;br>Empi jack Therapy Site: Blood
D uration of therapy: 7 days digoxin No 500ug 500 mcg, [facility] ers (LANOXIN) 12-09 Intravenou ity of injection 20:30: 19:56 s, ONCE, 1 [place] 500 mcg 00 :00 dose, On Medical [place] Branch 12/09/21 at 1530, Routine insulin 2021- No 5U 5 Units, Unive [...] Medical 1,000 mg in dose, On Bran ch NaCl 0.9% [place] (NS) 150 mL 12/09/21 at piggyback 0630, Administer over 60 Minutes, 150 mL traMADoL No 50mg 50 mg, Univer s (ULTRAM) 12-09 Oral, ity of tablet 50 07:45: 08:47 ONCE, 1 [place] mg 00 :00 dose, On Medical [place] Branch 12/09/21 at 0245, Routine insulin 2021- No 9U 9 Units, [facility] lispro 12-08 Subcutaneo ity of (human) 22:00: 19:29 us, TID [place] (HumaLOG 00 :04 MEALS, Medical U-100) First dose Branch injection 9 (after Units last modificati on) on Mon12/08/21 at 1700, Until Discontinu ed, Routine meropenem No 1000mg 1,000 mg, Univers (MERREM) 12-08 IV ity of 1,000 mg in 21:00: 13:42 [place], [place] NaCl 0.9% 00 :20 Q12H ABX, Medic al (NS) 50 mL First dose Bra tnh MINI-BAG on Mon12/08/21 at 1600, Until Discontinu ed, Administer over 3 Hours, 50 mL
Rest ricted use approved by: RUFINO
Reason for Anti-Infec tive: Empiric Therapy for Suspected Infection< br>Empiric Therapy Site: Blood
D uration of therapy: 72 hours insulin 2022-0 2022- No 5U 5 Units, Unive rs glargine [...] at 0900, Until Discontinu ed, Routine hydrocortis No 100mg 100 mg, U nivers one sod 12-08 Intravenou ity o f succ 07:32: 07:44 s, ONCE, 1 [place] (CORTEF) 00 :00 dose, On Medical injection [...] Areas), Medical BID, First Branch dose on Mon12/07/21 at 2000, Until Discontinu ed, Routine vancomycin 2021- No 1000mg 1,000 mg, Univers (VANCOCIN) 12-07 IV ity of 1,000 mg in 20:30: 22:54 [place], [place] NaCl 0.9% 00 :00 ONCE, 1 Medical [...] ity of (human) 17:00: 18:05 us, TID [place] (HumaLOG 00 :09 MEALS, Medical U-100) First dose Branch injection 4 (after Units last modificati on) on Mon12/07/21 at 1200, Until Discontinu ed, Routine KCL 2021- No 40meq 40 mEq, Univers (KLOR-CON 12-07 Oral, ity of M20) tablet 17:00: 16:13 ONCE, 1 [place] 40 mEq 00 :00 dose, On Medical Tue Branch 12/07/21 at 1200, Routine Sliding 2021- No Subcutaneo Uni vers Scale 12-07 07-01 [...] ity of (human) 13:00: 15:18 us, TID [place] (HumaLOG 00 :44 MEALS, Medical U-100) First dose Branch injection 2 (after Units last modificati on) on Mon12/07/21 at 0800, Until Discontinu ed, Routine KCL 2021- No 20meq 20 mEq, Univers (KLOR-CON 12-07 Oral, ity of M20) tablet 07:30: 06:40 ONCE, 1 [place] 20 mEq 00 :00 dose, On Medical [facility] 12/07/21 at 0230, Routine calcium 2021- No 2g 2 g, IV Univer s gluconate 2 12-07 Infusion, it y of g in NaCl 06:30: 08:50 ONCE, 1 [place] 100 mL 00 :00 dose, On Medical (ISO-OSM) [facility] RTU IV 12/07/21 at infusion 2 0130, g Routine acetaminoph 2021- No 650mg 650 mg, U nivers en 12-07 Oral, ity of (TYLENOL) 05:30: 06:38 ONCE, 1 [place] tablet 650 00 :00 dose, On Medic al mg [facility] 12/07/21 at 0030, Routine traMADoL Yes 50mg 50 mg, Univers (ULTRAM) 12-07 Oral, ity of tablet 50 02:58: Q6[place], [place] mg 00 Starting Medical on [facility] 12/06/21 at 2158, Until Discontinu ed, Routine, Pain (scale 4-6) calcium No 1g 1 g, IV Univer s gluconate 1 12-07 Infusion, it y of g in NaCl 00:30: 01:37 Administer [place] 50 mL 00 :00 over 60 Medical (ISO-OSM) Minutes, [place] RTU IV ONCE, 1 infusion 1 dose, On [facility] 12/06/21 at 1930, Routine insulin 2021- No 15U 15 Units, Univ ers glargine 12-06 Subcutaneo ity of (LANTUS 23:26: 23:41 us, ONCE, [place] U-100) 00 :00 1 dose, On Medical injection [facility] 15 Units 12/06/21 at 1830, ALEXYS vancomycin 2021- No 1000mg 1,000 mg, Univers (VANCOCIN) 12-06 IV ity of 1,000 mg in 22:30: 00:02 [place], [place] NaCl 0.9% 00 :00 ONCE, 1 Medical (NS) 250 mL dose, On Bran ch VIAL-MATE Mon IV 12/06/21 at piggyback 1730, Administer over [...] On g Mon12/06/21 at 1145, Routine potassium No 20meq 20 mEq, IV Univers chloride 20 12-06 [place], i ty of mEq/100 mL 15:45: 21:09 Q2H ES, 2 [place] (KCL) 20 00 :00 doses, Medical mEq/100 mL First dose [facility] RTU IVPB 20 on Mon mEq 12/06/21 [...] mL 00 :00 dose, On Medical (ISO-OSM) [facility] Branch RTU IV 12/06/21 at infusion 2 0400, g Routine ceFEPIme No 1000mg 1,000 mg, U nivers (MAXIPIME) 12-06 IV ity of 1,000 mg in 06:30: 20:34 [place], [place] NaCl 0.9% 00 :12 Q12H ABX, Medic al (NS) 50 mL First dose [facility] MINI-BAG on Mon12/06/21 at 0130, Until Discontinu ed, Administer over 4 Hours, 50 mL
Reas on for Anti-Infec tive: Empiric Therapy for Suspected Infection< br>Empi jack Therapy Site: Blood
D uration of therapy: 7 days hydrocortis 2021- No 100mg 100 mg, U nivers one sod 12-06 Intravenou ity o f succ 03:06: 03:28 s, ONCE, 1 [place] (CORTEF) 00 :00 dose, On Medical injection [place] Branch 100 mg 12/05/21 at 2215, 2 mL maalox:diph Yes 15mL 15 mL, Univ ers enhydrAMINE 12-06 Oral ity of :lidocaine 01:15: ([place] 2 % viscous 00 Spit Out), Me dical 1:1:1 QID, First Branch (FIRST-MOUT dose HWASH BLM) (after oral last suspension modificati 15 mL on) on [place] 12/05/21 at 2015, Until Discontinu ed, Routine acetaminoph No 975mg 975 mg, U nivers en 12-06 Oral, ONCE ity of (TYLENOL) 00:48: 01:21 NOW, 1 [place] tablet 975 00 :00 dose, On Medic al mg [place] Branch 12/05/21 at 2000, Routine vancomycin 2021- No 1250mg 1,250 mg, Univers 1250 mg in 12-05 IV ity of NS 250 mL 19:45: 17:54 [place], [place] RTU IV 00 :52 Q24H, Medical [place]back First dose Bran ch 1,250 mg on [place] 12/05/21 at 1445, Until Discontinu ed, Administer over 90 Minutes, 250 mL
Reas on for Anti-Infec tive: Empiric Therapy for Suspected Infection< br>Empi jack Therapy Site: Blood
D uration of therapy: 7 days ceFEPIme 2021- No 1000mg 1,000 mg, U nivers (MAXIPIME) 12-05 IV ity of 1,000 mg in 19:30: 20:59 [place], [place] NaCl 0.9% 00 :00 ONCE, 1 Medical (NS) 50 mL dose, On Branc h MINI-BAG [place] 12/05/21 at 1430, Administer over 30 Minutes, 50 mL
Reas on for Anti-Infec tive: Empiric Therapy for Suspected Infection< br>Empiric Therapy Site: Blood
D uration of therapy: 7 days insulin 2021- No 4U 4 Units, Unive rs lispro 12-05 Subcutaneo ity of (human) 14:15: 23:28 us, TID [place] (HumaLOG 00 :50 MEALS, Medical U-100) First dose Branch injection 4 (after Units last modificati on) on [place] 12/05/21 at 0915, Until Discontinu ed, Routine lisinopriL 2021- No 10mg 10 mg, Univ ers (PRINIVIL,Z 12-05 Oral, ity of ESTRIL) 14:00: 02:10 DAILY, [place] tablet 10 00 :28 First dose Medi abdon mg on Sun Branch 12/05/21 at 0900, Until Discontinu ed, Routine Sliding No Subcutaneo Uni vers Scale 12-04 us, TID ity of Insulin - 17:00: 14:07 [...] Last dose on 12/06/21 at 0900, Routine
tribunal member approving Restricted medication : NORM ABAD Sliding 2021- No Subcutaneo Uni vers Scale 12-03 us, Q4H, ity of Insulin - 01:00: 15:03 First dose [place] Lispro 00 :01 on [place] Medical (HumaLOG) + 12/02/21 at Br anch Fsbg 1999, Testing Until Discontinu ed, Routine cefTRIAXone 2021- No 1000mg 1,000 mg, Univers (ROCEPHIN) 12-02 IV ity of 1,000 mg in 20:00: 18[facility] [place] NaCl 0.9% 00 :20 Q24H ABX, Medic al (NS) 50 mL First dose Bra [facility] MINI-BAG on [place] 12/02/21 at 1500, Until [...] 12-02 Oral ity of :lidocaine 16:30: 01:09 (Swish And [place] 2 % viscous 00 :30 [...] mEq 00 :00 dose, On Medical Mon Branch 12/01/21 at 2115, Routine maalox:diph 2021- No [...] Branch 12/01/21 at 1800, Last dose on 12/04/21 at 1200, Routine lidocaine Yes 10mL 10 mL, Univer s 2% viscous 12-01 Oral, ity of (LIDOCAINE 20:48: Q6HPRN, [place] VISCOUS) 2 37 Starting Medic al % solution on Mon Branch 10 mL 12/01/21 at 1548, Until Discontinu ed, Routine, Oral mucosal pain NaCl 0.9% 2021- No 1000mL at 250 Uni vers (NS) IV 6-22 06-23 mL/hr, ity of infusion 19:45: 18:41 1,000 [...] ity of (human) 17:00: 00:09 us, TID [place] (HumaLOG 00 :36 MEALS, Medical U-100) First [...] Subcutaneo ity o f human 16:15: 15:14 us, ONCE, [place] (HUMULIN R) 00 :00 1 dose, On Me dical injection [facility] Branch 10 Units 12/01/21 at 1115, Routine NaCl 0.9% 2021- No 1000mL at 999 Uni vers (NS) bolus 12-01 mL/hr, ity of infusion 16:15: 15:25 1,000 mL, [place] 1,000 mL 00 :00 IV Medical [place], Branch ONCE, 1 dose, On Mon12/01/21 at 1115, STAT levothyroxi 2021- No 200ug 200 mcg, Univers ne 12-01 Oral, ity of (SYNTHROID) 15:00: 23:14 QAM-0600, [place] tablet 200 00 :47 First dose Med ical mcg (after Branch last modificati on) on Mon12/01/21 at 1000, Until Discontinu ed, Routine foLIC acid 2021- No 1mg 1 mg, Unive rs (FOLATE) 12-01 Oral, ity of tablet 1 mg 14:00: 18:20 DAILY, [place] 00 :28 First dose Medical on [facility] Branch 12/01/21 at 0900, Until Discontinu ed, Routine Sliding 2021- No Subcutaneo Uni vers Scale 12-01 , TID ity of Insulin - 13:30: 00:10 MEALS+HS, [place] Lispro 00 :45 First dose Medical (HumaLOG) + (after Branch Fsbg last Testing modificati on) on Mon12/01/21 at 0830, Until Discontinu ed, Routine ondansetron Yes 4mg 4 mg, Slow Univers (ZOFRAN 12-01 IV Push, ity of (PF)) 10:14: Q6HPRN, [place] injection 4 46 Starting Medi abdon mg on [facility] Branch 12/01/21 at 0514, Until Discontinu ed, Routine, Nausea and Vomiting (N/V) acetaminoph Yes 650mg 650 mg, Un shayna en 12-01 Oral, ity of (TYLENOL) 10:14: Q6HPRN, [place] tablet 650 36 Starting Medic al mg on Wed Branch 12/01/21 at 0514, Until Discontinu ed, Routine, Pain (scale 1-3) naproxen 2021-0 Yes UT (Naprosyn) 11-27 Health 500 MG 00:00: tablet 00 naproxen 2021-0 Yes UT (Naprosyn) 11-27 Health 500 MG 00:00: tablet 00 naproxen 2021-0 Yes UT (Naprosyn) 11-27 Health 500 MG 00:00: tablet 00 naproxen 2021-0 Yes UT (Naprosyn) 11-27 Health 500 MG 00:00: tablet 00 naproxen 0 2021- No UT (Naprosyn) 11-2703 Health 500 MG 00:00: 00:00 tablet 00 :00 doxepin 2021-0 Yes UT (SINEquan) 11-16 Health 10 MG 00:00: capsule 00 doxepin 2021-0 Yes UT (SINEquan) 11-16 Health 10 MG 00:00: capsule 00 doxepin 2021-0 Yes UT (SINEquan) 11-16 Health 10 MG 00:00: capsule 00 doxepin 2021-0 Yes UT (SINEquan) 11-16 Health 10 MG 00:00: capsule 00 doxepin 2021-0 Yes UT (SINEquan) 11-16 Health 10 MG 00:00: capsule 00 naproxen 0 2021- No 500mg 500 mg, Univ ers (NAPROSYN) 11-10 Oral, ity of tablet 500 08:00: 07:02 ONCE, 1 [place] mg 00 :00 dose, On Medical Mon11/10/21 Branch at 0300, Routine amoxicillin 2021- No 500mg 500 mg, U nivers (TRIMOX) 11-10 Oral, ity of capsule 500 08:00: 07:02 ONCE, 1 [place] mg 00 :00 dose, On Medical Mon11/10/21 Branch at 0300, ALEXYS
Re ason for Anti-Infec tive: Documented Infection< br>Documen allison Infection Site: HEENT
D uration of Therapy: 10 days naproxen 2021-0 Yes [id number] 500mg Take 1 Un shayna (NAPROSYN) - tablet by ity of 500 mg 00:00: mouth 2 [place] tablet 00 (two) Medical times Branch daily with meals. naproxen 2021-0 Yes [id number] 500mg Take 1 Un shayna (NAPROSYN) 11-10 tablet by ity of 500 mg 00:00: mouth 2 [place] tablet 00 (two) Medical times Branch daily with meals. naproxen 2021-0 2021- No [id number] 500mg Take 1 U nivers (NAPROSYN) 11-10-06 tablet by ity of 500 mg 00:00: 00:00 mouth 2 [place] tablet 00 :00 (two) Medical times Branch daily with meals. amoxicillin 2021-2021- No [id number] 500mg Take 1 Univers 500 mg 11-10 capsule by ity of capsule 00:00: 04:59 mouth 3 [place] 00 :00 (three) Medical times Branch daily for 10 days. losartan 2021-0 Yes 100mg QD Take 100 UT (Cozaar) 5-20 mg by Health 100 MG 00:00: mouth 1 tablet 00 (one) time each day. losartan 2021-0 Yes 100mg QD Take 100 UT (Cozaar) 5-20 mg by Health 100 MG 00:00: mouth 1 tablet 00 (one) time each day. losartan 2021-0 Yes 100mg QD Take 100 UT (Cozaar) 5-20 mg by Health 100 MG 00:00: mouth 1 tablet 00 (one) time each day. losartan 2021-0 Yes 100mg QD Take 100 UT (Cozaar) 5-20 mg by Health 100 MG 00:00: mouth 1 tablet 00 (one) time each day. losartan 2-0 Yes 100mg QD Take 100 UT (Cozaar) 5-20 mg by Health 100 MG 00:00: mouth 1 tablet 00 (one) time each day. methotrexat 2021-2021- No [id number] PO, take UT e 2.5 MG 09-09 five Health tablet 00:00: 00:00 tablets 00 :00 Qweek, folic acid 2021-2021- No [id number] 1mg QD Take 1 UT (Folvite) 1 1-31 07-31 tablet (1 He alth MG tablet 00:00: 04:59 mg total) 00 :00 by mouth 1 (one) time each day. calcitriol 2022- No [id number] .5ug QD Take 1 U T (Rocaltrol) 06-16 capsule Heal th 0.5 MCG 00:00: 05:59 (0.5 mcg capsule 00 :00 total) by mouth 1 (one) time each day. calcitriol 2022- No [id number] .5ug QD Take 1 U T (Rocaltrol) 06-16 capsule Heal th 0.5 MCG 00:00: 05:59 (0.5 mcg capsule 00 :00 total) by mouth 1 (one) time each day. calcitriol 2022- No [id number] .5ug QD Take 1 U T (Rocaltrol) 06-16 capsule Heal th 0.5 MCG 00:00: 05:59 (0.5 mcg capsule 00 :00 total) by mouth 1 (one) time each day. calcitriol 2022- No [id number] .5ug QD Take 1 U T (Rocaltrol) 06-16 capsule Heal th 0.5 MCG 00:00: 05:59 (0.5 mcg capsule 00 :00 total) by mouth 1 (one) time each day. calcitriol 2022- No [id number] .5ug QD Take 1 U T (Rocaltrol) 06-16 capsule Heal th 0.5 MCG 00:00: 05:59 (0.5 mcg capsule 00 :00 total) by mouth 1 (one) time each day. traMADoL 2021- No 100mg 100 mg, Univ ers (ULTRAM) 06-12 Oral, ity of tablet 100 14:45: 13:45 ONCE, 1 [place] mg 00 :00 dose, On Medical 06/12/21 Branch at 0845, Routine METHOCARBAM 2021- No None Unive rs OL 750 MG 06-12 Entered ity of ORAL TAB 07:44: 00:00 [place] 52 :00 Medical Branch PREDNISONE 2021-0 Yes None Univers 10 MG ORAL 06-12 Entered ity of TAB 07:31: [place] 09 Medical Branch METHOTREXAT Yes None Univer s E SODIUM 1-01 Entered ity of 2.5 MG ORAL 07:31: [address] PREDNISONE 0 Yes None Univers 10 MG ORAL 1-01 Entered ity of TAB 07:31: [address] METHOTREXAT Yes None Univer s E SODIUM 1-01 Entered ity of 2.5 MG ORAL 07:31: [address] PREDNISONE 0 Yes None Univers 10 MG ORAL 1-01 Entered ity of TAB 07:31: [address] METHOTREXAT Yes None Univer s E SODIUM 1-01 Entered ity of 2.5 MG ORAL 07:31: [address] PREDNISONE 0 Yes None Univers 10 MG ORAL 1-01 Entered ity of TAB 07:31: [address] METHOTREXAT Yes None Univer s E SODIUM 1-01 Entered ity of 2.5 MG ORAL 07:31: [address] PREDNISONE 0 Yes None Univers 10 MG ORAL 1-01 Entered ity of TAB 07:31: [address] METHOTREXAT Yes None Univer s E SODIUM 1-01 Entered ity of 2.5 MG ORAL 07:31: [address] traMADoL 50 0 Yes [id number] 50mg Take 1 Univ ers mg tablet 1-01 tablet by ity o f 00:00: mouth [place] 00 every 4 Medical (four) Branch hours as needed for Pain (scale 1-3). Indication s: acute pain methocarbam 0 Yes [id number] 750mg Take 1 Univers oL 750 mg [...] Indication s: acute pain methocarbam 2021-0 Yes [id number] 750mg Take 1 Univers oL 750 mg [...] Indication s: acute pain methocarbam 2022-0 Yes [id number] 750mg Take 1 Univers oL 750 mg [...] Indication s: acute pain methocarbam 2-0 Yes [id number] 750mg Take 1 Univers oL 750 mg 1-01 tablet by ity o f tablet 00:00: mouth 4 (four) Medical times Branch daily. traMADoL 50 2021-0 Yes [id number] 50mg Take 1 Univ ers mg tablet 1-01 tablet by ity o f 00:00: mouth [place] 00 every 4 Medical (four) Branch hours as needed for Pain (scale 1-3). Indication s: acute pain methocarbam 2-0 Yes [id number] 750mg Take 1 Univers oL 750 mg 1-01 tablet by ity o f tablet 00:00: mouth (four) Medical times Branch daily. traMADoL 50 2-0 Yes [id number] 50mg Take 1 Univ ers mg tablet 1-01 tablet by ity o f 00:00: mouth [place] 00 every 4 Medical (four) Branch hours as needed for Pain (scale 1-3). Indication s: acute pain methocarbam 2-0 Yes [id number] 750mg Take 1 Univers oL 750 mg [...] Indication s: acute pain methocarbam 2022-0 Yes [id number] 750mg Take 1 Univers oL 750 mg 1-01 tablet by ity o f tablet 00:00: mouth 4 [place] 00 (four) Medical times Branch daily. traMADoL 50 2021-0 Yes [id number] 50mg Take 1 Univ ers mg tablet 1-01 tablet by ity o f 00:00: mouth 00 every 4 Medical (four) Branch hours as needed for Pain (scale 1-3). Indication s: acute pain methocarbam 2021-0 Yes [id number] 750mg Take 1 Univers oL 750 mg 1-01 tablet by ity o f tablet 00:00: mouth (four) Medical times Branch daily. traMADoL 50 2021-0 Yes [id number] 50mg Take 1 Univ ers mg tablet 1-01 tablet by ity o f 00:00: mouth 00 every 4 Medical (four) Branch hours as needed for Pain (scale 1-3). Indication s: acute pain methocarbam 2021-0 Yes [id number] 750mg Take 1 Univers oL 750 mg 1-01 tablet by ity o f tablet 00:00: mouth (four) Medical times Branch daily. traMADoL 50 2021-0 Yes [id number] 50mg Take 1 Univ ers mg tablet 1-01 tablet by ity o f 00:00: mouth 00 every 4 Medical (four) Branch hours as needed for Pain (scale 1-3). Indication s: acute pain methocarbam 2021-0 Yes [id number] 750mg Take 1 Univers oL 750 mg 1-01 tablet by ity o f tablet 00:00: mouth (four) Medical times Branch daily. Blood 2020-06 Yes [id number] CHECK UT Glucose 2-27 BLOOD Health Monitoring 00:00: SUGAR Suppl (ONE 00 THREE TOUCH ULTRA TIMES A 2) w/Device DAY kit Blood 2020-06 Yes [id number] CHECK UT Glucose 2-27 BLOOD Health Monitoring 00:00: SUGAR Suppl (ONE 00 THREE TOUCH ULTRA TIMES A 2) w/Device DAY kit Blood 2020-06 Yes [id number] CHECK UT Glucose 2-27 BLOOD Health Monitoring 00:00: SUGAR Suppl (ONE 00 THREE TOUCH ULTRA TIMES A 2) w/Device DAY kit Blood 2020-06 Yes [id number] CHECK UT Glucose 2-27 BLOOD Health Monitoring 00:00: SUGAR Suppl (ONE 00 THREE TOUCH ULTRA TIMES A 2) w/Device DAY kit Blood 2020-06 Yes [id number] CHECK UT Glucose 2-27 BLOOD Health Monitoring 00:00: SUGAR Suppl (ONE 00 THREE TOUCH ULTRA TIMES A 2) w/Device DAY kit ezetimibe 2020-06 Yes [id number] 10mg Take 1 UT (Zetia) 10 2-16 tablet (10 Hea lth MG tablet 00:00: mg total) 00 by mouth every night. ezetimibe 2020-06 Yes [id number] 10mg Take 1 UT (Zetia) 10 2-16 tablet (10 Hea lth MG tablet 00:00: mg total) 00 by mouth every night. ezetimibe 2020-06 Yes [id number] 10mg Take 1 UT (Zetia) 10 2-16 tablet (10 Hea lth MG tablet 00:00: mg total) 00 by mouth every night. ezetimibe 2020-06 Yes [id number] 10mg Take 1 UT (Zetia) 10 2-16 tablet (10 Hea lth MG tablet 00:00: mg total) 00 by mouth every night. dapaglifloz 2020-06- No [id number] 10mg QD Take 1 UT in 2-16 12-17 tablet ([address] [place] [id number]) 00:00: 05:59 mg total) 10 MG 00 :00 by mouth 1 (one) time each day. dapaglifloz 2020-06- No [id number] 10mg QD Take 1 UT in -16 12-17 tablet ([address] [place] [id number]) 00:00: 05:59 mg total) 10 MG 00 :00 by mouth 1 (one) time each day. dapaglifloz 2020-06- No [id number] 10mg QD Take 1 UT in 2-16 12-17 tablet ([address] [place] [id number]) 00:00: 05:59 mg total) 10 MG 00 :00 by mouth 1 (one) time each day. dapaglifloz 2020-06- No [id number] 10mg QD Take 1 UT in 2-16 12-17 tablet ([address] [place] [id number]) 00:00: 05:59 mg total) 10 MG 00 :00 by mouth 1 (one) time each day. dapaglifloz 2020-06- No [id number] 10mg QD Take 1 UT in 2-16 11-03 tablet (10 Health (Farxiga) 00:00: 00:00 mg total) 10 MG 00 :00 by mouth 1 (one) time each day. ezetimibe 2020-06 202- No [id number] 10mg Take 1 U T (Zetia) 10 2-16 11-03 tablet (10 He alth MG tablet 00:00: 00:00 mg total) 00 :00 by mouth every night. hydrOXYzine Yes [id number] 10mg Q6H Take 1 UT HCl 9-20 tablet (10 Health (Atarax) 10 00:00: mg total) MG tablet 00 by mouth every 6 (six) hours if needed for itching for up to 10 days. hydrOXYzine Yes [id number] 10mg Q6H Take 1 UT HCl 9-20 tablet (10 Health (Atarax) 10 00:00: mg total) MG tablet 00 by mouth every 6 (six) hours if needed for itching for up to 10 days. hydrOXYzine Yes [id number] 10mg Q6H Take 1 UT HCl 9-20 tablet (10 Health (Atarax) 10 00:00: mg total) MG tablet 00 by mouth every 6 (six) hours if needed for itching for up to 10 days. hydrOXYzine Yes [id number] 10mg Q6H Take 1 UT HCl 9-20 tablet (10 Health (Atarax) 10 00:00: mg total) MG tablet 00 by mouth every 6 (six) hours if needed for itching for up to 10 days. Insulin Pen Yes [id number] USE UP TO UT Needle (BD 8-12 5 NEEDLES Heal Pen Needle 00:00: DAILY Makeda Gen) 32G X 4 MM misc insulin Yes [id number] Inject 44 UT glargine 8-12 Units Health (Basaglar 00:00: under the KwikPen) 00 skin 1 100 UNIT/ML (one) time injection each day in the morning. insulin Yes [id number] Inject 20 UT aspart 8-12 Units Health (NovoLOG 00:00: under the FLEXPEN) 00 skin 1 100 UNIT/ML (one) time injection each day with breakfast AND 28 Units 1 (one) time each day with dinner. Insulin Pen Yes [id number] USE UP TO UT Needle (BD 8-12 5 NEEDLES Heal th Pen Needle 00:00: DAILY Makeda 2nd 00 Gen) 32G X 4 MM misc fluvastatin Yes [id number] 20mg Take 1 UT (Lescol) 20 8-12 capsule Healt h MG capsule 00:00: (20 mg 00 total) by mouth every night. Victoza 18 Yes [id number] 1.2mg QD Inject 1.2 UT MG/3ML 8-12 mg under Health injection 00:00: the skin 1 00 (one) time each day. Insulin Pen Yes [id number] USE UP TO UT Needle (BD 8-12 5 NEEDLES Heal th Pen Needle 00:00: DAILY Makeda 2nd Gen) 32G X 4 MM misc fluvastatin Yes [id number] 20mg Take 1 UT (Lescol) 20 8-12 capsule Healt h MG capsule 00:00: (20 mg 00 total) by mouth every night. Insulin Pen Yes [id number] USE UP TO UT Needle (BD 8-12 5 NEEDLES Heal th Pen Needle 00:00: DAILY Makeda 2nd 00 Gen) 32G X 4 MM misc fluvastatin Yes [id number] 20mg Take 1 UT (Lescol) 20 8-12 capsule Healt h MG capsule 00:00: (20 mg 00 total) by mouth every night. Insulin Pen Yes [id number] USE UP TO UT Needle (BD 8-12 5 NEEDLES Heal th Pen Needle 00:00: DAILY Makeda 2nd Gen) 32G X 4 MM misc fluvastatin 2021- No [id number] 20mg Take 1 UT (Lescol) 20 8-12 -03 capsule Heal th MG capsule 00:00: 00:00 (20 mg 00 :00 total) by mouth every night. insulin 2021- No [id number] Inject 44 UT glargine 01-21 Units [facility] (Basaglar 00:00: 00:00 under the KwikPen) 00 :00 skin 1 100 UNIT/ML (one) time injection each day in the morning. insulin 2021- No [id number] Inject 20 UT aspart 8-12 08-16 Units Health (NovoLOG 00:00: 00:00 under the FLEXPEN) 00 :00 skin 1 100 UNIT/ML (one) time injection each day with breakfast AND 28 Units 1 (one) time each day with dinner. Victoza 18 2021- No [id number] 1.2mg QD Inject 1.2 UT MG/3ML 01-21 08-16 mg under Health injection 00:00: 00:00 the skin 1 00 :00 (one) time each day. insulin 2021- No [id number] Inject 44 UT glargine 01-21-13 Units Health (Basaglar 00:00: 04:59 under the KwikPen) 00 :00 skin 1 100 UNIT/ML (one) time injection each day in the morning. insulin 2021- No [id number] Inject 20 UT aspart 01-21-13 Units Health (NovoLOG 00:00: 04:59 under the FLEXPEN) 00 :00 skin 1 100 UNIT/ML (one) time injection each day with breakfast AND 28 Units 1 (one) time each day with dinner. fluvastatin 2021- No [id number] 20mg Take 1 UT (Lescol) 20 01-21- capsule Heal th MG capsule 00:00: 04:59 (20 mg 00 :00 total) by mouth every night. Victoza 18 2021- No [id number] 1.2mg QD Inject 1.2 UT MG/3ML 01-21-13 mg under Health injection 00:00: 04:59 the skin 1 00 :00 (one) time each day. levothyroxi Yes [id number] Take U T ne 12-31 levothyrox Health (Synthroid, 00:00: ine 150 Levoxyl) 00 mcg 6.5 150 MCG tablets tablet per week (one tablet Monday through Monday and 1/2 tablet on Monday) levothyroxi Yes [id number] Take U T ne 7-22 levothyrox Health (Synthroid, 00:00: ine 150 Levoxyl) 00 mcg 6.5 150 MCG tablets tablet per week (one tablet Monday through Monday and 1/2 tablet on Monday) levothyroxi Yes [id number] Take U T ne 12-31 levothyrox Health (Synthroid, 00:00: ine 150 Levoxyl) 00 mcg 6.5 150 MCG tablets tablet per week (one tablet Monday through Monday and 1/2 tablet on Monday) levothyroxi 2020-0 Yes [id number] Take U T ne 12-31 levothyrox Health (Synthroid, 00:00: ine 150 Levoxyl) 00 mcg 6.5 150 MCG tablets tablet per week (one tablet Monday through Monday and 1/2 tablet on Monday) levothyroxi 2020-0 Yes [id number] Take U T ne 12-31 levothyrox Health (Synthroid, 00:00: ine 150 Levoxyl) 00 mcg 6.5 150 MCG tablets tablet per week (one tablet Monday through Monday and 1/2 tablet on Monday) OneTouch 0 Yes [id number] Test 3 UT Delica 7-15 times Health Lancets 33G 00:00: daily misc 00 OneTouch 2020-0 Yes [id number] Test 3 UT Delica 7-15 times Health Lancets 33G 00:00: daily misc 00 OneTouch 2020-0 Yes [id number] Test 3 UT Delica 7-15 times Health Lancets 33G 00:00: daily misc 00 OneTouch 2020-0 Yes [id number] Test 3 UT [place] 7-15 times Health Lancets 33G 00:00: daily misc 00 OneTouch 2020-0 Yes [id number] Test 3 UT Delica 7-15 times Health Lancets 33G 00:00: daily misc 00 Blood 2020-0 Yes [id number] TEST 3 UT Glucose 7-13 TIMES A Health Monitoring 00:00: DAY Suppl 00 (Blood Glucose Monitor System) w/Device kit Glucose 2020-0 Yes [id number] TEST 3 UT Blood 7-13 TIMES A Health (Blood 00:00: DAY Glucose 00 Test) strip Lancets 2020-0 Yes [id number] TEST 3 UT misc 7-13 TIMES A Health 00:00: DAY 00 Blood 2020-0 Yes [id number] TEST 3 UT Glucose 7-13 TIMES A Health Monitoring 00:00: DAY Suppl 00 (Blood Glucose Monitor System) w/Device kit Glucose 2020-0 Yes [id number] TEST 3 UT Blood 7-13 TIMES A Health (Blood 00:00: DAY Glucose 00 Test) strip Lancets 2020-0 Yes [id number] TEST 3 UT misc 7-13 TIMES A Health 00:00: DAY 00 Blood 2020-0 Yes [id number] TEST 3 UT Glucose 7-13 TIMES A Health Monitoring 00:00: DAY Suppl 00 (Blood Glucose Monitor System) w/Device kit Glucose 2020-0 Yes [id number] TEST 3 UT Blood 7-13 TIMES A Health (Blood 00:00: DAY Glucose 00 Test) strip Lancets 2020-0 Yes [id number] TEST 3 UT misc 7-13 TIMES A Health 00:00: DAY 00 Blood 2020-0 Yes [id number] TEST 3 UT Glucose 7-13 TIMES A Health Monitoring 00:00: DAY Suppl 00 (Blood Glucose Monitor System) w/Device kit Glucose 2020-0 Yes [id number] TEST 3 UT Blood 7-13 TIMES A Health (Blood 00:00: DAY Glucose 00 Test) strip Lancets 2020-0 Yes [id number] TEST 3 UT misc 7-13 TIMES A Health 00:00: DAY 00 Blood 2020-0 Yes [id number] TEST 3 UT Glucose 7-13 TIMES A Health Monitoring 00:00: DAY Suppl 00 (Blood Glucose Monitor System) w/Device kit Glucose 2020-0 Yes [id number] TEST 3 UT Blood 7-13 TIMES A Health (Blood 00:00: DAY Glucose 00 Test) strip Lancets 2020-0 Yes [id number] TEST 3 UT misc 7-13 TIMES A Health 00:00: DAY 00 Continuous 2020-0 Yes [id number] Use as UT Blood Gluc 5-18 instructed Hea lth Sensor 00:00: (FreeStyle 00 [facility] sensor system) misc Continuous 2020-0 Yes [id number] Use as UT Blood Gluc 5-18 instructed Hea lth Sensor 00:00: (FreeStyle 00 [facility] sensor system) misc Continuous 2020-0 Yes [id number] Use as UT Blood Gluc 5-18 instructed Hea lth Sensor 00:00: (FreeStyle 00 [facility] sensor system) misc Continuous 2020-0 Yes [id number] Use as UT Blood Gluc 5-18 instructed Hea lth Sensor 00:00: (FreeStyle 00 [facility] sensor system) misc Continuous 0 Yes [id number] Use as UT Blood Gluc 5-18 instructed [...] Health MG tablet 00:00: 00 doxazosin 2020-0 2- No UT (Cardura) 2 5-17 11-03 Health MG tablet 00:00: 00:00 00 :00 travoprost 0 Yes UT (Travatan 5-01 Health Z) 0.004 % 00:00: solution 00 ophthalmic solution travoprost 0 Yes UT (Travatan 5-01 Health Z) 0.004 % 00:00: solution 00 ophthalmic solution travoprost 0 Yes UT (Travatan 5-01 Health Z) 0.004 % 00:00: solution 00 ophthalmic solution travoprost 2020-0 Yes UT (Travatan 5-01 Health Z) 0.004 % 00:00: solution 00 ophthalmic solution travoprost 2020-0 Yes UT (Travatan 5-01 Health Z) 0.004 % 00:00: solution 00 [...] [address] 00:00: capsule 00 DULoxetine 0 Yes UT (Cymbalta) 2-[address] 00:00: capsule 00 DULoxetine 0 Yes UT (Cymbalta) 2-[address] 00:00: capsule 00 DULoxetine 0 Yes UT (Cymbalta) 2-[address] 00:00: capsule 00 DULoxetine 2020-0 2021- No UT (Cymbalta) 2- Health [address] 00:00: 00:00 capsule 00 :00 OneTouch 2020-1 Yes UT Verio test 2- Health strip 00:00: 00 OneTouch 2020-1 Yes UT Verio test 2- Health strip 00:00: 00 OneTouch 2020-1 Yes UT Verio test 2- Health strip 00:00: 00 OneTouch 2020-1 Yes UT Verio test 2- Health strip 00:00: 00 OneTouch 2020-1 Yes UT Verio test 2- Health strip 00:00: 00 Restasis 2020-0 Yes [...] Entered ity of 2.5 MG ORAL 04:11: [address] FOLIC ACID Yes None Univers 1 MG ORAL - Entered ity of TAB 04:11: [address] LEVOTHYROXI Yes None Univer s NE 200 MCG - Entered ity of ORAL TAB 04:11: [address] METFORMIN Yes None Univers 500 MG ORAL - Entered ity o f TAB 04:11: [address] CALCITRIOL Yes None Univers 0.5 MCG 07-12 Entered ity of ORAL CAP 04:11: [address] FOLTRIN Yes None Univers ORAL 1-31 Entered ity of 04:11: [address] ENALAPRIL Yes None Univers MALEATE 20 1-31 Entered ity of MG ORAL TAB 04:11: [address] HYDROXYCHLO Yes None Univer s ROQUINE 200 1-31 Entered ity o f MG ORAL TAB 04:11: [address] AMLODIPINE Yes None Univers BESYLATE - Entered ity of ORAL 04:11: [address] PREDNISONE Yes None Univers 10 MG ORAL -31 Entered ity of TAB 04:11: [address] METHOCARBAM Yes None Univer s OL 750 MG - Entered ity of ORAL TAB 04:11: [address] HYDROCHLORO Yes None Univer s THIAZIDE 25 07-12 Entered ity o f MG ORAL TAB 04:11: [address] folic acid Yes Take by UT (Folvite) 1 07-12 mouth. Health MG tablet 00:00: 00 TRAMADOL 50 Yes 2 tabs q 6 Univers MG ORAL TAB 07-12 hours prn ity of 00:00: pain [address] TRAMADOL 50 2021- No 2 tabs q 6 Univers MG ORAL TAB 106-12 hours prn it y of 00:00: 00:00 pain [place] 00 :00 [facility] FOLIC ACID Yes None Univers 1 MG ORAL 1-30 Entered ity of TAB 22:11: [address] LEVOTHYROXI Yes None Univer s [place] 200 MCG 1-30 Entered ity of ORAL TAB 22:11: [address] METFORMIN Yes None Univers 500 MG ORAL 1-30 Entered ity o f TAB 22:11: [address] CALCITRIOL Yes None Univers 0.5 MCG 1-30 Entered ity of ORAL CAP 22:11: [address] FOLTRIN Yes None Univers ORAL 1-30 Entered ity of 22:11: [address] ENALAPRIL Yes None Univers MALEATE 20 1-30 Entered ity of MG ORAL TAB 22:11: [address] HYDROXYCHLO Yes None Univer s ROQUINE 200 1-30 Entered ity o f MG ORAL TAB 22:11: [address] AMLODIPINE Yes None Univers BESYLATE 1-30 Entered ity of ORAL 22:11: [address] FOLIC ACID Yes None Univers 1 MG ORAL 1-30 Entered ity of TAB 22:11: [address] LEVOTHYROXI Yes None Univer s [place] 200 MCG 1-30 Entered ity of ORAL TAB 22:11: [address] METFORMIN Yes None Univers 500 MG ORAL 1-30 Entered ity o f TAB 22:11: [address] CALCITRIOL Yes None Univers 0.5 MCG 1-30 Entered ity of ORAL CAP 22:11: [address] FOLTRIN Yes None Univers ORAL 1-30 Entered ity of 22:11: [address] ENALAPRIL Yes None Univers MALEATE 20 1-30 Entered ity of MG ORAL TAB 22:11: [address] HYDROXYCHLO Yes None Univer s ROQUINE 200 1-30 Entered ity o f MG ORAL TAB 22:11: [address] AMLODIPINE Yes None Univers BESYLATE 1-30 Entered ity of ORAL 22:11: [address] FOLIC ACID Yes None Univers 1 MG ORAL 1-30 Entered ity of TAB 22:11: [address] LEVOTHYROXI Yes None Univer s [place] 200 MCG 1-30 Entered ity of ORAL TAB 22:11: [address] METFORMIN Yes None Univers 500 MG ORAL 1-30 Entered ity o f TAB 22:11: [address] CALCITRIOL Yes None Univers 0.5 MCG 1-30 Entered ity of ORAL CAP 22:11: [address] FOLTRIN Yes None Univers ORAL 1-30 Entered ity of 22:11: [address] ENALAPRIL Yes None Univers MALEATE 20 1-30 Entered ity of MG ORAL TAB 22:11: [address] HYDROXYCHLO Yes None Univer s ROQUINE 200 1-30 Entered ity o f MG ORAL TAB 22:11: [address] AMLODIPINE Yes None Univers BESYLATE 1-30 Entered ity of ORAL 22:11: [address] FOLIC ACID Yes None Univers 1 MG ORAL 1-30 Entered ity of TAB 22:11: [address] LEVOTHYROXI Yes None Univer s [place] 200 MCG 1-30 Entered ity of ORAL TAB 22:11: [address] METFORMIN Yes None Univers 500 MG ORAL 1-30 Entered ity o f TAB 22:11: [address] CALCITRIOL Yes None Univers 0.5 MCG 1-30 Entered ity of ORAL CAP 22:11: [address] FOLTRIN Yes None Univers ORAL 1-30 Entered ity of 22:11: [address] ENALAPRIL Yes None Univers MALEATE 20 1-30 Entered ity of MG ORAL TAB 22:11: [address] HYDROXYCHLO Yes None Univer s ROQUINE 200 1-30 Entered ity o f MG ORAL TAB 22:11: [address] AMLODIPINE Yes None Univers BESYLATE 1-30 Entered ity of ORAL 22:11: [address] FOLIC ACID Yes None Univers 1 MG ORAL 1-30 Entered ity of TAB 22:11: [address] LEVOTHYROXI Yes None Univer s [place] 200 MCG 1-30 Entered ity of ORAL TAB 22:11: [address] METFORMIN Yes None Univers 500 MG ORAL 1-30 Entered ity o f TAB 22:11: [address] CALCITRIOL Yes None Univers 0.5 MCG 1-30 Entered ity of ORAL CAP 22:11: [address] FOLTRIN Yes None Univers ORAL 1-30 Entered ity of 22:11: [address] ENALAPRIL Yes None Univers MALEATE 20 1-30 Entered ity of MG ORAL TAB 22:11: [address] HYDROXYCHLO Yes None Univer s ROQUINE 200 1-30 Entered ity o f MG ORAL TAB 22:11: [address] AMLODIPINE Yes None Univers BESYLATE 1-30 Entered ity of ORAL 22:11: [address] HYDROCHLORO Yes None Univer s THIAZIDE 25 1-30 Entered ity o f MG ORAL TAB 22:11: [address] HYDROCHLORO Yes None Univer s THIAZIDE 25 1-30 Entered ity o f MG ORAL TAB 22:11: [address] HYDROCHLORO Yes None Univer s THIAZIDE 25 1-30 Entered ity o f MG ORAL TAB 22:11: [address] HYDROCHLORO Yes None Univer s THIAZIDE 25 1-30 Entered ity o f MG ORAL TAB 22:11: [address] HYDROCHLORO Yes None Univer s THIAZIDE 25 1-30 Entered ity o f MG ORAL TAB 22:11: [address] Vital Signs Vital Name Observation Time Observation Value Comments Source Systolic blood 2022-04-14 19:11:00 140 mm[Hg] [facility] pressure Diastolic blood 2022-04-14 19:11:00 76 mm[Hg] [facility] pressure Heart rate 2022-04-14 19:11:00 73 /min [facility] Body temperature 2022-04-14 19:11:00 36 [facility] Body weight 2022-04-14 19:11:00 101.878 kg [facility] BMI 2022-04-14 19:11:00 41.08 kg/m2 [facility] Systolic blood 2022-03-08 13:35:00 122 mm[Hg] [facility] pressure Diastolic blood 2022-03-08 13:35:00 74 mm[Hg] [facility] alth pressure Heart rate 2022-03-08 13:35:00 78 /min [facility] Respiratory rate 2022-03-08 13:35:00 17 /min [facility] Systolic blood 2022-01-25 14:45:00 137 mm[Hg] [facility] pressure Diastolic blood 2022-01-25 14:45:00 71 mm[Hg] [facility] alth pressure Heart rate 2022-01-25 14:45:00 76 /min [facility] Respiratory rate 2022-01-25 14:45:00 16 /min [facility] Body height 2022-01-25 14:45:00 157.5 cm [facility] Body weight 2022-01-25 14:45:00 92.987 kg [facility] BMI 2022-01-25 14:45:00 37.49 kg/m2 [facility] Systolic blood 2021-12-30 15:02:00 124 mm[Hg] [facility] pressure Diastolic blood 2021-12-30 15:02:00 57 mm[Hg] UT He alth pressure Heart rate 2021-12-30 15:02:00 69 /min [facility]alt [facility] Body temperature 2021-12-30 15:02:00 36 [place] [facility] Systolic blood 2021-12-15 16:37:00 126 mm[Hg] Univer sity of pressure [place] [facility] Diastolic blood 2021-12-15 16:37:00 56 mm[Hg] Unive rsity of pressure [place] [facility] Heart rate 2021-12-15 16:37:00 63 /min [facility]i [facility] [place] [facility] Body temperature 2021-12-15 16:37:00 36.39 Josette Univ ersity of [place] [facility] Respiratory rate 2021-12-15 16:37:00 18 /min Univ ersity of [place] [facility] Oxygen saturation in 2021-12-15 16:37:00 99 /min University of Arterial blood by [facility] Pulse oximetry Branch Body weight 2021-12-15 09:13:00 110.995 kg [facility] [place] [facility] BMI 2021-12-15 09:13:00 44.76 kg/m2 [facility] [place] [facility] Body height 2021-12-03 11:19:00 157.5 cm [facility] [place] [facility] Systolic blood 2021-11-29 14:17:00 124 mm[Hg] Univer sity of pressure [place] [facility] Diastolic blood 2021-11-29 14:17:00 62 mm[Hg] Unive rsity of pressure [place] [facility] Heart rate 2021-11-29 14:17:00 82 /min [facility] [place] [facility] Body temperature 2021-11-29 14:17:00 36.94 Josette Univ ersity [facility] [place] [facility] Respiratory rate 2021-11-29 14:17:00 18 /min Univ ers[facility] [place] [facility] Body height 2021-11-29 14:17:00 157.5 cm [facility] [place] [facility] Body weight 2021-11-29 14:17:00 92.534 kg [facility] [place] [facility] BMI 2021-11-29 14:17:00 37.31 kg/m2 [facility] [place] [facility] Oxygen saturation in 2021-11-29 14:17:00 97 /min University of Arterial blood by [facility] Pulse oximetry Branch Systolic blood 2021-11-10 07:07:54 223 mm[Hg] Univer sity of pressure [facility] Diastolic blood 2021-11-10 07:07:54 93 mm[Hg] Unive rsity of [facility] Heart rate 2021-11-10 07:07:54 66 /min Universi ty of [facility] Body temperature 2021-11-10 07:07:54 36.5 Josette [facility] Respiratory rate 2021-11-10 07:07:54 17 /min Univ ersity of [facility] Body height 2021-11-10 05:54:00 157.5 cm Universi ty of [facility] Body weight 2021-11-10 05:54:00 92.534 kg Universi ty of [facility] BMI 2021-11-10 05:54:00 37.31 kg/m2 Universi ty of [facility] Oxygen saturation in 2021-11-10 05:49:00 96 /min University of Arterial blood by [facility] Pulse oximetry Branch Body temperature 2021-06-12 13:32:[address] [facility] Systolic blood 2021-06-12 13:29:00 125 mm[Hg] Univer sity of [facility] Diastolic blood 2021-06-12 13:29:00 64 [facility]Hg[facility] 2021-06-12 13:29:00 82 /min Universi ty [facility] Respiratory rate 2021-06-12 13:29:00 18 /min Univ ersity of [facility] Body weight 2021-06-12 13:29:00 101.606 kg Universi ty [facility] Oxygen saturation in 2021-06-12 13:29:00 97 /min University of Arterial blood by [facility] Pulse oximetry Branch Procedures Procedure Date / Time Performing Clinician Source Performed POCT GLUCOSE 2022-03-08 13:43:00 [place] [place] [facility] COMPREHENSIVE METABOLIC 2022-01-25 16:11:00 [place] [facility] PANEL CALCIUM, IONIZED 2022-01-25 16:11:00 [place] MAGNESIUM 2022-01-25 16:11:00 Mo-Yodit Jewell [place] [facility] PHOSPHORUS 2022-01-25 16:11:00 Geovanna [facility] EXTERNAL PROVIDER RECORDS 2021-12-31 05:01:00 Doctor Unassigned, [facility] COMPREHENSIVE METABOLIC 2021-12-30 16:26:00 [facility] PANEL HEMOGLOBIN A1C 2021-12-30 16:26:00 [facility] C-REACTIVE PROTEIN 2021-12-30 [facility]ENTIAL 2021-12-30 16:26:00 [facility] Hea lth URINALYSIS WITH REFLEX 2021-12-30 16:26[facility]OS[facility] / CREATININE 2021-12-30 16:26:00 [facility] lt RATIO, URINE ALBUMIN, RANDOM URINE W/CR 2021-12-30 16:26:00 [facility] (MICROALBUMIN) NULL 2021-12-30 16:26:00 [facility] PREPARE PACKED RBC 2021-12-15 19:54:34 Harjeet Burleson [facility] POCT GLUCOSE (AUTOMATED) 2021-12-15 16:38:00 Harjeet Burleson [facility] POCT GLUCOSE (AUTOMATED) 2021-12-15 12:52:00 Harjeet Burleson [facility] COMP. METABOLIC PANEL 2021-12-15 09:34:00 Otto Sanchez [facility] ([id number]) Medical Branch POCT GLUCOSE (AUTOMATED) 2021-12-15 01:30:00 Harjeet Burleson [facility] POCT GLUCOSE (AUTOMATED) 2021-12-14 22:05:00 Harjeet Burleson [facility] DUPLEX VENOUS LEGS 2021-12-14 21:55:00 Otto Sanchez [facility] BILATERAL - BY VASCULAR Medical Branch LAB POCT GLUCOSE (AUTOMATED) 2021-12-14 17:09:00 [facility] 1 VW 2021-12-14 13:35:00 Ayesha [facility] POCT GLUCOSE (AUTOMATED) 2021-12-14 12:31:00 Harjeet [facility] COMP. METABOLIC PANEL 2021-12-14 08:30:00 Otto Sanchez [facility] ([id number]) Medical Branch CBC WITH DIFF 2021-12-14 04:27:00 Otto Sanchez [facility] PANEL IDENTIFICATION 2021-12-14 03:37:00 Ayesha Bateman [facility] ELUTION IDENTIFICATION 2021-12-14 03:37:00 Ayesha Bateman [facility] HB ABO GROUPING 2021-12-14 03:37:00 [facility] POLYSPECIFIC RESULT 2021-12-14 03:37:00 [facility]ARY MONOSPECIFIC IGG 2021-12-14 03:37:00 [facility] ZACHARY MONOSPECIFIC C3 RESULT 2021-12-14 03:37:00 Ayesha Bateman [facility] POCT GLUCOSE (AUTOMATED) 2021-12-14 01:35:00 Benjy [facility] POCT GLUCOSE (AUTOMATED) 2021-12-13 21:59:00 [facility] PO[facility] GLUCOSE (AUTOMATED) 2021-12-13 17:12:00 Benjy [facility] POCT GLUCOSE (AUTOMATED) 2021-12-13 12:37:00 Benjy [facility] BASIC METABOLIC PANEL (NA, 2021-12-13 09:19:00 Darío Rinaldi [facility] K, CL, CO2, GLUCOSE, BUN, Medica l Branch CREATININE, CA) CBC WITH DIFF 2021-12-13 09:19:00 Darío Rinaldi [facility] N-TERMINAL PRO-BNP 2021-12-13 09:19:00 Sukhi Otto [facility] POCT GLUCOSE (AUTOMATED) 2021-12-13 01:37:00 Benjy [facility] VANCOMYCIN RANDOM LEVEL 2021-12-12 23:06:00 [facility] 2021-12-12 21:48:00 Benjy [facility] POCT GLUCOSE (AUTOMATED) 2021-12-12 16:45:00 Benjy [facility] IONIZED CALCIUM 2021-12-12 15:19:00 [facility] POCT GLUCOSE (AUTOMATED) 2021-12-12 12:17:00 Benjy [facility] PHOSPHORUS 2021-12-12 09:31:00 [facility] MAGNESIUM 2021-12-12 09:31:00 [facility] BASIC METABOLIC PANEL (NA, 2021-12-12 09:31:00 [facility] K, CL, CO2, GLUCOSE, BUN, Medica l Branch CREATININE, CA) CBC WITH DIFF 2021-12-12 09:31:00 [facility] POCT GLUCOSE (AUTOMATED) 2021-12-12 02:16:00 Benjy [facility] VANCOMYCIN RANDOM LEVEL 2021-12-11 23:26:00 Vivienne Gallo [facility] CBC WITHOUT DIFF 2021-12-11 23:26:00 Benjy [facility] POCT GLUCOSE (AUTOMATED) 2021-12-11 21:50:00 Benjy [facility] PREPARE PACKED RBC 2021-12-11 17:50:14 Joe [facility] POCT GLUCOSE (AUTOMATED) 2021-12-11 16:18:00 Colt Astorga [facility] TRANSFUSION RXN 2021-12-11 09:35:28 Joe [facility] TRXN WORKUP-ABBREVIATED 2021-12-11 09:26:48 Colt Astorga [facility] MAGNESIUM 2021-12-11 09:21:[address] [facility] BASIC METABOLIC PANEL (NA, 2021-12-11 09:21:00 Jaylin Camargo [facility] K, CL, CO2, GLUCOSE, BUN, Medica l Branch CREATININE, CA) CBC WITH DIFF 2021-12-11 09:21:00 [facility] ([facility]OMATED) 2021-12-11 01:43:00 Colt Astorga [facility] PANEL IDENTIFICATION 2021-12-10 23:32:00 Jaylin Camargo [facility] ELUTION IDENTIFICATION 2021-12-10 23:32:00 Jaylin Camargo [facility] POCT GLUCOSE (AUTOMATED) 2021-12-10 22:33:00 Colt Astorga [facility] HB ABO GROUPING 2021-12-10 20:25:00 Jaylin Camargo [facility] POCT GLUCOSE (AUTOMATED) 2021-12-10 19:31:00 Colt Astorga [facility] THYROID STIMULATING 2021-12-10 19:23:00 Aidee Harvey [facility] HORMONE [facility] VANCOMYCIN RANDOM LEVEL 2021-12-10 19:23:00 Nirmala Vasquez [facility] TRANSTHORACIC ECHO (TTE) 2021-12-10 16:57:00 Suresh Bentley [facility] COMPLETE W/ CONTRAST [facility] POCT GLUCOSE (AUTOMATED) 2021-12-10 16:44:00 Colt Astorga [facility] CBC WITH DIFF 2021-12-10 14:20:[address] [facility] POCT GLUCOSE (AUTOMATED) 2021-12-10 14:19:00 Colt Astorga [facility] POCT GLUCOSE (AUTOMATED) 2021-12-10 12:54:00 Colt Astorga [facility] LACTIC ACID WHOLE BLOOD 2021-12-10 09:18:00 Bent[facility] MAGNESIUM 2021-12-10 09:17:[address] [facility] IONIZED CALCIUM 2021-12-10 09:17:00 Bentley, Suresh [facility] HEPATIC FUNCTION PANEL 2021-12-10 09:17:00 BentleySuresh langston [facility] ([id number]) (ALB,T.PRO,BILI [facility] [place] T,BU/BC,ALT,AST,ALK PHOS) BASIC METABOLIC PANEL (NA, 2021-12-10 09:17:00 Raman [facility] K, CL, CO2, GLUCOSE, BUN, Medica l Branch CREATININE, CA) CBC WITH DIFF 2021-12-10 09:17:00 Camargo, [facility] EKG-12 LEAD 2021-12-10 07:12:46 Doctor Unassigned, [facility] [place] [facility] POCT GLUCOSE (AUTOMATED) 2021-12-10 06:17:00 Colt Astorga [facility] POCT GLUCOSE (AUTOMATED) 2021-12-10 04:16:00 Colt Astorga [facility] POCT GLUCOSE (AUTOMATED) 2021-12-10 02:03:00 Colt Astorga [facility] CT HEAD WO CONTRAST 2021-12-10 00:39:00 Pino Restrepo [facility] AC PANEL 20 + LACTIC ACID 2021-12-09 23:38:00 Lauro [facility] POCT GLUCOSE (AUTOMATED) 2021-12-09 23:28:00 Colt Astorga [facility] MISCELLANEOUS SEND OUT 2021-12-09 21:48:00 Nirmala Vasquez [facility] COVID-19 (MOLECULAR 2021-12-09 21:22:[address] [facility] NUCLEIC ACID AMPLIFICATION) LAB ONLY COVID 2021-12-09 21:22:00 Silvia Vasquezssa [facility] HISTOPLASMA GALACTOMANNAN 2021-12-09 21:21:00 Nirmala Vasquez [facility] ANTIGEN QUANTITATIVE BY [facility] EIA, URINE POCT GLUCOSE (AUTOMATED) 2021-12-09 21:08:00 Colt Astorga [facility] POCT GLUCOSE (AUTOMATED) 2021-12-09 18:59:00 Colt Astorga [facility] HB HLA I TYPING COMPLETE 2021-12-09 17:56:00 Nicho Upton [facility] LR DNA [facility] HB HLA CLASS I AB HIGH 2021-12-09 17:56:00 Nicho Upton [facility] DEFIN QUAL [facility] EKG-12 LEAD 2021-12-09 16:48:51 Doctor Unassigned, [facility] [place] [facility] POCT GLUCOSE (AUTOMATED) 2021-12-09 16:29:00 Colt Astorga [facility] POCT GLUCOSE (AUTOMATED) 2021-12-09 13:10:00 Colt Astorga [facility] POCT GLUCOSE (AUTOMATED) 2021-12-09 10:26:00 Colt Astorga [facility] MAGNESIUM 2021-12-09 09:19:00 Jaylin Camargo [facility] BASIC METABOLIC PANEL (NA, 2021-12-09 09:19:00 Jaylin Camargo [facility] K, CL, CO2, GLUCOSE, BUN, Medica l Branch CREATININE, CA) CBC WITH DIFF 2021-12-09 09:19:[address] [facility] POCT GLUCOSE (AUTOMATED) 2021-12-09 06:58:00 Colt Astorga [facility] POCT GLUCOSE (AUTOMATED) 2021-12-09 04:00:00 Colt Astorga [facility] POCT GLUCOSE (AUTOMATED) 2021-12-09 00:50:00 Colt Astorga [facility] BLOOD CULTURE SCREEN 2021-12-08 22:18:00 Jaylin Camargo [facility] CBC WITH DIFF 2021-12-08 21:31:00 Pino Restrepo [facility] POCT GLUCOSE (AUTOMATED) 2021-12-08 21:14:00 Colt Astorga [facility] TRANSFUSE PLATELETS 2021-12-08 19:15:00 Jaylin Camargo [facility] PREPARE PLATELETS 2021-12-08 19:08:[address] [facility] POCT GLUCOSE (AUTOMATED) 2021-12-08 19:08:00 Colt Astorga [facility] POCT GLUCOSE (AUTOMATED) 2021-12-08 17:10:00 Colt Astorga [facility] POCT GLUCOSE (AUTOMATED) 2021-12-08 13:45:00 Colt Astorga [facility] POCT GLUCOSE (AUTOMATED) 2021-12-08 11:31:00 Colt Astorga [facility] MAGNESIUM 2021-12-08 11:22:[address] [facility] BASIC METABOLIC PANEL (NA, 2021-12-08 11:22:00 Jaylin Camargo [facility] K, CL, CO2, GLUCOSE, BUN, Medica l Branch CREATININE, CA) CBC WITH DIFF 2021-12-08 11:22:[address] [facility] TRANSFUSE PLATELETS 2021-12-08 08:37:00 Suresh Bentley [facility] PREPARE PLATELETS 2021-12-08 08:28:56 [facility] POCT GLUCOSE (AUTOMATED) 2021-12-08 08:24:00 Colt Astorga [facility] BASIC METABOLIC PANEL (NA, 2021-12-08 04:46:00 Ai Bentley [facility] K, CL, CO2, GLUCOSE, BUN, Medica l Branch CREATININE, CA) CBC WITH DIFF 2021-12-08 04:46:00 Pino Restrepo [facility] POCT GLUCOSE (AUTOMATED) 2021-12-08 03:52:00 Colt Astorga [facility] POCT GLUCOSE (AUTOMATED) 2021-12-08 01:24:00 Colt Astorga [facility] POCT GLUCOSE (AUTOMATED) 2021-12-07 21:54:00 Colt Astorga [facility] CBC WITH DIFF 2021-12-07 19:41:00 Terminella, [facility] POCT GLUCOSE (AUTOMATED) 2021-12-07 19:14:00 Colt Astorga [facility] VANCOMYCIN TROUGH 2021-12-07 17:47:00 [facility]SE (AUTOMATED) 2021-12-07 15:56:00 Colt Astorga [facility] MAGNESIUM 2021-12-07 14:16:[address] [facility] BASIC METABOLIC PANEL (NA, 2021-12-07 14:16:00 Jaylin Camargo [facility] K, CL, CO2, GLUCOSE, BUN, Medica l Branch CREATININE, CA) CBC WITH DIFF 2021-12-07 14:15:[address] [facility] FIBRINOGEN 2021-12-07 13:18:[facility] PO[facility]SE (AUTOMATED) 2021-12-07 12:33:00 Colt Astorga [facility] TRANSFUSE PLATELETS 2021-12-07 11:40:00 Suresh Bentley [facility] PREPARE PLATELETS 2021-12-07 11:30:59 [facility] RBC 2021-12-07 07:32:00 Suresh Bentley [facility] PREPARE PACKED RBC 2021-12-07 07:24:01 Suresh Bentley [facility] IONIZED CALCIUM 2021-12-07 03:27:00 [facility] BASIC METABOLIC PANEL (NA, 2021-12-07 03:27:00 Lauro [facility] K, CL, CO2, GLUCOSE, BUN, Medica l Branch CREATININE, CA) CBC WITHOUT DIFF 2021-12-07 03:27:[address] [facility] POCT GLUCOSE (AUTOMATED) 2021-12-07 01:18:00 Colt Astorga [facility] IONIZED CALCIUM 2021-12-06 22:01:00 Suresh Bentley [facility] POCT GLUCOSE (AUTOMATED) 2021-12-06 21:33:00 Colt Astorga [facility] WOUND/ASPIRATE OR ABSCESS 2021-12-06 21:20:00 [facility] C[facility] WOUND CULTURE 2021-12-06 21:20:00 [facility] CBC WITHOUT DIFF 2021-12-06 20:29:00 [facility] VANCOMYCIN TROUGH 2021-12-06 19:24:00 [facility] OCCULT (GUAIAC) BLOOD 2021-12-06 19:20:00 Suresh Bentley [facility] POCT GLUCOSE (AUTOMATED) 2021-12-06 16:00:00 Colt Astorga [facility] CBC WITH DIFF 2021-12-06 15:45:00 Suresh Bentley [facility] BASIC METABOLIC PANEL (NA, 2021-12-06 12:50:00 Colt Astorga [facility] K, CL, CO2, GLUCOSE, BUN, Medica l Branch CREATININE, CA) CBC WITH DIFF 2021-12-06 12:50:00 Colt Astorga [facility] POCT GLUCOSE (AUTOMATED) 2021-12-06 12:41:00 Colt Astorga [facility] TRANSFUSE PACKED RBC 2021-12-06 11:30:00 Suresh Bentley [facility] XR CHEST 1 VW 2021-12-06 11:00:31 Colt Astorga [facility] PREPARE PACKED RBC 2021-12-06 10:14:34 Suresh Bentley [facility] HSV 1&2, VZV NAAT 2021-12-06 05:51:00 Suresh Bentley sity [facility] MAGNESIUM 2021-12-06 05:49:00 Suresh Bentley [facility] COMP. METABOLIC PANEL 2021-12-06 05:49:00 Suresh Bentley [facility] ([id number]) [facility] CBC WITH DIFF 2021-12-06 05:49:00 Suresh Bentley [facility] TRANSFUSE PLATELETS 2021-12-06 02:50:00 Colt Astorga [facility] PREPARE PLATELETS 2021-12-06 02:21:17 [facility] ([facility]OMATED) 2021-12-06 01:47:00 Colt Astorga [facility] URINALYSIS 2021-12-05 22:54:00 Joe [facility] URINE CULTURE 2021-12-05 22:54:00 [facility] PO[facility] (AUTOMATED) 2021-12-05 22:01:00 Lauro, Pino U [facility] BLOOD CULTURE SCREEN 2021-12-05 18:47:00 Joe [facility] PROCALCITONIN 2021-12-05 18:47:00 Joe [facility] BLOOD CULTURE SCREEN 2021-12-05 18:36:00 Colt Astorga [facility] POCT GLUCOSE (AUTOMATED) 2021-12-05 17:40:00 Terminella, Pino U [facility] HB ABO GROUPING 2021-12-05 15:45:00 [facility] POCT GLUCOSE (AUTOMATED) 2021-12-05 12:44:00 Terminella, [facility] CBC WITH DIFF 2021-12-05 11:03:00 Joe [facility] POCT GLUCOSE (AUTOMATED) 2021-12-05 10:05:00 Terminella, [facility] PO[facility]SE (AUTOMATED) 2021-12-05 05:47:00 Terminella, Pino [facility] POCT GLUCOSE (AUTOMATED) 2021-12-05 01:15:00 Terminella, Pino U niversity [facility] POCT GLUCOSE (AUTOMATED) 2021-12-04 21:31:00 Terminella, [facility]ino [facility] [place] [facility] POCT GLUCOSE (AUTOMATED) 2021-12-04 16:17:00 Terminella, Pino U niversity [facility] POCT GLUCOSE (AUTOMATED) 2021-12-04 12:31:00 Terminella, Pino [facility] BASIC METABOLIC PANEL (NA, 2021-12-04 10:25:00 Colt Astorga [facility] K, CL, CO2, GLUCOSE, BUN, Medica l Branch CREATININE, CA) METHOTREXATE 2021-12-04 10:25:00 Faisal Hebert [facility] CBC WITH DIFF 2021-12-04 10:25:00 Faisal Hebert [facility] POCT GLUCOSE (AUTOMATED) 2021-12-04 09:37:00 Terminella, Pino [facility] POCT GLUCOSE (AUTOMATED) 2021-12-04 09:08:00 Terminella, Pino U niversity [facility] POCT GLUCOSE (AUTOMATED) 2021-12-04 06:24:00 Terminella, Pino [facility] POCT GLUCOSE (AUTOMATED) 2021-12-04 02:56:00 Terminella, Pino U niversity [facility] POCT GLUCOSE (AUTOMATED) 2021-12-03 22:00:00 Terminella, Pino U niversity [facility] POCT GLUCOSE (AUTOMATED) 2021-12-03 17:11:00 Terminella, Pino [facility] POCT GLUCOSE (AUTOMATED) 2021-12-03 15:31:00 Terminella, Pino [facility] TRANSFUSE PACKED RBC 2021-12-03 14:37:00 Colt Astorga [facility] PREPARE PACKED RBC 2021-12-03 14:24:52 Colt Astorga [facility] POCT GLUCOSE (AUTOMATED) 2021-12-03 13:12:00 Terminella, Pino U niversity [facility] MAGNESIUM 2021-12-03 10:30:00 Jaylin Camargo [facility] BASIC METABOLIC PANEL (NA, 2021-12-03 10:30:00 Camargo, Jaylin [facility] [place] K, CL, CO2, GLUCOSE, BUN, Medica l Branch CREATININE, CA) CBC WITH DIFF 2021-12-03 10:30:00 Camargo Jaylin [facility] POCT GLUCOSE (AUTOMATED) 2021-12-03 10:29:00 Terminella, Pino U [facility] POCT GLUCOSE (AUTOMATED) 2021-12-03 06:53:00 Terminella, Pino U [facility] POCT GLUCOSE (AUTOMATED) 2021-12-03 04:52:00 Terminella, Pino U [facility] of [facility] POCT GLUCOSE (AUTOMATED) 2021-12-03 04:04:00 Terminella, Pino U [facility] POCT GLUCOSE (AUTOMATED) 2021-12-03 03:00:00 Terminella, Pino U [facility] of [facility] POCT GLUCOSE (AUTOMATED) 2021-12-03 02:13:00 Terminella, Pino U [facility] BASIC METABOLIC PANEL (NA, 2021-12-02 23:02:00 Camargo, Jaylin [facility] [place] K, CL, CO2, GLUCOSE, BUN, Medica l Branch CREATININE, CA) POCT GLUCOSE (AUTOMATED) 2021-12-02 23:01:00 Terminella, Pino U [facility] POCT GLUCOSE (AUTOMATED) 2021-12-02 19:53:00 Terminella, Pino U [facility] POCT GLUCOSE (AUTOMATED) 2021-12-02 18:27:00 Terminella, Pino U [facility] POCT GLUCOSE (AUTOMATED) 2021-12-02 16:55:00 Terminella, Pino U [facility] POCT GLUCOSE (AUTOMATED) 2021-12-02 16:13:00 Terminella, Pino U [facility] of [facility] POCT GLUCOSE (AUTOMATED) 2021-12-02 15:22:00 Terminella, Pino U [facility] POCT GLUCOSE (AUTOMATED) 2021-12-02 14:08:00 Terminella, Pino U [facility] METHOTREXATE 2021-12-02 14:06:00 Norm Abad [facility] BASIC METABOLIC PANEL (NA, 2021-12-02 14:05:00 [facility], CO2, GLUCOSE, BUN, Medica l Branch CREATININE, CA) POCT GLUCOSE (AUTOMATED) 2021-12-02 13:05:00 Terminella, Pino U [facility] POCT GLUCOSE (AUTOMATED) 2021-12-02 12:13:00 Terminella, Pino U [facility] BASIC METABOLIC PANEL (NA, 2021-12-02 11:26:00 AlbjohnsonamiIdalmisar U [facility] K, CL, CO2, GLUCOSE, BUN, Medica l Branch CREATININE, CA) POCT GLUCOSE (AUTOMATED) 2021-12-02 11:08:00 Terminella, Pino U [facility] POCT GLUCOSE (AUTOMATED) 2021-12-02 10:13:00 Terminella, Pino U [facility] POCT GLUCOSE (AUTOMATED) 2021-12-02 09:12:00 Terminella, Pino U [facility] PHOSPHORUS 2021-12-02 08:05:00 Twyla Sepulveda [facility] ALBUMIN 2021-12-02 08:05:00 Twyla Sepulveda [facility] MAGNESIUM 2021-12-02 08:05:00 Coco, Njuriel [facility] BASIC METABOLIC PANEL (NA, 2021-12-02 08:05:00 [facility] K, CL, CO2, GLUCOSE, BUN, Medica l Branch CREATININE, CA) INTACT PTH CALCIUM GROUP 2021-12-02 08:05:00 Twyla Sepulveda [facility] CBC WITH DIFF 2021-12-02 08:05:00 [facility] (AUTOMATED) 2021-12-02 08:05:00 Terminella, Pino U [facility] POCT GLUCOSE (AUTOMATED) 2021-12-02 07:10:00 TerminellaLaurenPino U [facility] POCT GLUCOSE (AUTOMATED) 2021-12-02 05:54:00 Terminella, Pino U [facility] TRANSFUSE PLATELETS 2021-12-02 05:31:00 Norm Abad [facility] BASIC METABOLIC PANEL (NA, 2021-12-02 05:15:00 TerminVanessa [facility]visM[facility] K, CL, CO2, GLUCOSE, BUN, Medica l Branch CREATININE, CA) POCT GLUCOSE (AUTOMATED) 2021-12-02 05:13:00 TerminellaLaurenPino U [facility] PREPARE PLATELETS 2021-12-02 04:51:39 [facility] PO[facility]SE (AUTOMATED) 2021-12-02 03:57:00 Terminella, Pino U [facility] POCT GLUCOSE (AUTOMATED) 2021-12-02 03:07:00 TerminellaLaurenPino U [facility] BASIC METABOLIC PANEL (NA, 2021-12-02 02:23:00 [facility] K, CL, CO2, GLUCOSE, BUN, Medica l Branch CREATININE, CA) POCT GLUCOSE (AUTOMATED) 2021-12-02 02:16:00 Terminella, Pino U [facility] POCT GLUCOSE (AUTOMATED) 2021-12-02 01:04:00 TerminellaLaurenPino U [facility] ABORH CONFIRMATION (LAB 2021-12-02 00:40:00 Norm Abad [facility] ONLY) [facility] POCT GLUCOSE (AUTOMATED) 2021-12-02 00:04:00 Terminella, Pino U [facility] BASIC METABOLIC PANEL (NA, 2021-12-01 23:41:00 [facility]Lau[facility] K, CL, CO2, GLUCOSE, BUN, Medica l Branch CREATININE, CA) ANTIGEN TYPING PATIENT 2021-12-01 23:40:00 Harjeet Burleson [facility] HB ABO GROUPING 2021-12-01 23:40:00 Norm Abad [facility] POCT GLUCOSE (AUTOMATED) 2021-12-01 23:01:00 Pino Restrepo [facility] POCT GLUCOSE (AUTOMATED) 2021-12-01 22:05:00 Pino Restrepo [facility] PROTEIN CREAT RATIO URINE 2021-12-01 21:18:00 Twyla Sepulveda [facility] TOTAL PROTEIN, URINE 2021-12-01 21:18:00 Twyla Sepulveda [facility] UREA NITROGEN, URINE 2021-12-01 21:18:00 Coco Njuriel [facility] SODIUM, URINE RANDOM 2021-12-01 21:18:00 Twyla Sepulveda [facility] URINALYSIS 2021-12-01 20:22:00 Lauro [facility] MRSA / MSSA SCREEN BY PCR, 2021-12-01 20:13:00 Pino Restrepo [facility] NARES [facility] PHOSPHORUS 2021-12-01 20:12:00 Lauro [facility] MAGNESIUM 2021-12-01 20:12:00 Lauro [facility] OSMOLALITY, SERUM OR 2021-12-01 20:12:[address] [facility] PLASMA [facility] BETA HYDROXY-BUTYRATE 2021-12-01 20:12:00 Pino Restrepo [facility] GLYCOSYLATED HEMOGLOBIN 2021-12-01 20:12:00 Pino Restrepo [facility] (A1C) [facility] HEPATITIS B SURFACE 2021-12-01 20:12:[address] [facility] ANTIGEN [facility] HIV 1/2 AG-AB WITH REFLEX 2021-12-01 20:12:00 Norm Abad [facility] POCT GLUCOSE (AUTOMATED) 2021-12-01 19:28:00 Pino Restrepo [facility] LACTATE DEHYDROGENASE 2021-12-01 18:43:00 Norm Abad [facility] HAPTOGLOBIN, SERUM 2021-12-01 18:43:00 Faisal Hebert [facility] C-REACTIVE PROTEIN 2021-12-01 18:43:00 Pino Restrepo [facility] TOTAL IRON BINDING 2021-12-01 18:43:00 Faisal Hebert [facility] CAPACITY [facility] BASIC METABOLIC PANEL (NA, 2021-12-01 18:43:00 Colt Astorga [facility] K, CL, CO2, GLUCOSE, BUN, Medica l Branch CREATININE, CA) IRON PANEL 2021-12-01 18:43:00 Coco [facility] HEPATITIS B SURFACE 2021-12-01 18:43:00 Faisal Hebert [facility] ANTIBODY [facility] HCV ANTIBODY 2021-12-01 18:43:00 Faisal Hebert [facility] HBC ANTIBODY (IGM & IGG) 2021-12-01 18:43:00 Faisal Hebert [facility] ACUTE CARE ARTERIAL BLOOD 2021-12-01 17:31:00 Colt Astorga [facility] GAS [facility] POCT GLUCOSE (AUTOMATED) 2021-12-01 16:33:00 Ayesha Bateman [facility] XR CHEST 1 VW 2021-12-01 16:07:03 Joe [facility] URIC ACID 2021-12-01 15:25:00 Faisal Hebert [facility] FERRITIN SERUM 2021-12-01 15:25:00 Faisal [place], [facility] VITAMIN B12, LEVEL 2021-12-01 15:25:00 Faisal Anup, [facility] BETA HYDROXY-BUTYRATE 2021-12-01 15:25:00 Colt Astorga [facility] HEPATIC FUNCTION PANEL 2021-12-01 15:25:00 Faisal Hebetr [facility] ([id number]) (ALB,T.PRO,BILI Medical Branch T,BU/BC,ALT,AST,ALK PHOS) BASIC METABOLIC PANEL (NA, 2021-12-01 14:19:00 Colt Astorga [facility] K, CL, CO2, GLUCOSE, BUN, Medica l Branch CREATININE, CA) POCT GLUCOSE (AUTOMATED) 2021-12-01 12:57:00 Mili Dickerson [facility] URINALYSIS 2021-12-01 11:17:00 [facility] 2021-12-01 11:07:00 Ayesha Bateman [facility] BLOOD CULTURE SCREEN 2021-12-01 11:00:00 Ayesha Bateman [facility] CBC WITHOUT DIFF 2021-12-01 10:59:00 [facility] GLYCOSYLATED HEMOGLOBIN 2021-12-01 10:59:00 Colt Astorga [facility] (A1C) [facility] PROTHROMBIN TIME / INR 2021-12-01 10:59:00 Ayesha Bateman [facility] ACTIVATED PARTIAL THRMPLAS 2021-12-01 10:59:00 Keli Dickerson [facility] RETICULOCYTES AUTOMATED 2021-12-01 10:59:00 Norm Abad [facility] RAPID STREP SCREEN FOR 2021-11-29 15:00:00 Catarina Marcus [facility] GROUP A Medical Branch CONSENT/REFUSAL FOR 2021-11-29 14:13:09 Doctor Plunkett [facility] DIAGNOSIS AND TREATMENT [place] [facility] NOTICE OF PRIVACY 2021-11-10 05:41:29 Doctor Plunkett [facility] PRACTICES [place] [facility] CONSENT/REFUSAL FOR 2021-11-10 05:35:53 Doctor Plunkett [facility] DIAGNOSIS AND TREATMENT [place] [facility] CONSENT/REFUSAL FOR 2021-09-03 18:13:12 Doctor Plunkett [facility] DIAGNOSIS AND TREATMENT [place] [facility] [place] ASSIGNMENT OF BENEFITS 2021-09-03 18:12:54 Doctor Plunkett [facility] Medical Branch EXTERNAL PROVIDER RECORDS 2021-07-29 06:01:00 Doctor Unassigned, [facility] [place] [facility] CONSENT/REFUSAL FOR 2021-06-12 13:16:46 Doctor Unassigned, [facility] DIAGNOSIS AND TREATMENT [place] [facility] PATIENT FINANCIAL 2021-02-05 16:00:55 Doctor Unassigned, [facility] POLICY [place] [facility] NO SHOW OR MISSED 2021-02-05 16:00:22 Doctor Unassigned, [facility] APPOINTMENT POLICY [place] [facility] ACKNOWLEDGEMENT NOTICE OF PRIVACY 2021-02-05 15:59:57 Doctor Unassigned, [facility] PRACTICES [place] [facility] CONSENT/REFUSAL FOR 2021-02-05 15:59:37 Doctor Unassigned, [facility] DIAGNOSIS AND TREATMENT [place] [facility] ASSIGNMENT OF BENEFITS 2021-02-05 15:59:15 Doctor Unassigned, [facility] [place] [facility] Arthroscopy of knee with Jose Rodriguez meniscus repair Laminectomy and discectomy Landon Rodriguez [facility] Encounters Start End Encounter Admission Attending Care Care Encounter Source Date/Time Date/Time Type Type Clinicians Facility Department ID 2022-04-15 Outpatient [facility] [id number] [place] 13:30:[address] [place] [address] 2022-02-09 Outpatient SYSTEM, BRIANA WARREN [id number] 17:32:57 PROVIDER Yariel o edilma 2021-07-07 Outpatient PATRICIA, [facility] [id number] [place] 13:17:48 [facility] 2021-05-27 Outpatient KATHIHRI, [facility] [id number] [place] 11:53:21 [facility] 2021-01-21 Outpatient CHAUDHRI, [facility] [id number] [place] 11:08:40 [facility] 2020-11-04 Outpatient CHAUDHRI, [facility] [id number] [place] 12:32:24 [facility] 2020-10-27 Outpatient CHAUDHRI, [facility] [id number] [place] 09:13:17 [facility] 2020-10-17 Outpatient SHAEI, [facility] [id number] [place] 04:20:12 [facility] 2022-10-20 2022-10-20 Outpatient ASSSAMMYI, [facility] [id number] [place] 11:00:00 11:00:00 [facility] 2022-06-07 2022-06-07 Outpatient AUSTIN, [facility] [id number] [place] 10:00:00 10:00:00 Health 2022-04-14 2022-04-14 Office Patricia, [facility] 6410 1.2.559.442 [id number] [place] 14:30:00 15:04:[address] 350.1.13.58 Health 9.2.7.2.686 [id number] 9 2022-04-04 2022-04-04 [id number] [facility] 00:00:00 00:00:00 kirill LOAIZA [facility] 2022-03-08 2022-03-08 Office [place], [facility] 6410 1.2.167.219 [id number] [place] 08:20:00 09:18:[address] 350.1.13.58 Health 9.2.7.2.686 [id number] 3 2022-01-25 2022-01-25 Office [place], [facility] 6410 1.2.955.853 [id number] [place] 09:20:00 10:46:[address] 350.1.13.58 Health 9.2.7.2.686 [id number] 3 2022-01-05 2022-01-05 Telephone No, Pcp [facility] 6410 1.2.840.114 [id number] [place] 00:00:00 00:00:00 No, Pcp FABIO ST 350.1.13.58 Health 9.2.7.2.686 [id number] 3 2022-01-02 2022-01-02 Telephone José [facility] 6410 1.2.840.114 [id number] [place] 00:00:00 00:00:[address] 350.1.13.58 Health 9.2.7.2.686 [id number] 9 2021-12-31 2021-12-31 Orders Doctor KEKE 1.2.840.114 [id number] Univers 00:00:00 00:00:00 Only Unassigned, JOE 350.1.13.10 ity of [place] [facility] 4.2.7.2.686 Armin as [id number] [facility] 009 Branch 2021-12-31 2021-12-31 Telephone RICHMOND Francis 6410 1.2.840.114 [id number] [place] 00:00:00 00:00:00 Iqperez OREILLY 350.1.13.58 Health 9.2.7.2.686 [id number] 9 2021-12-30 2021-12-30 Office RICHMOND Gomez 6410 1.2.738.410 [id number] [place] 10:00:00 11:04:36 Visit Bhanu OREILLY 350.1.13.58 Health 9.2.7.2.686 [id number] 9 2021-12-16 2021-12-16 Telephone [facility] 1.2.840.114 [id number] Univers 00:00:00 00:00:00 Otto MULTISPEC 350.1.13.10 [place] [id number] [address] [facility] 2021-12-16 2021-12-16 Transition NesscodyHARMONY 1.2.840.114 [id number] Univers 00:00:00 00:00:00 of Care Oksana VELASQUEZ 350.1.13.10 i [place] [id number] [facility] 403 Branch 2021-12-16 2021-12-16 Telephone [facility] 1.2.840.114 [id number] Univers 00:00:00 00:00:00 Otto MULTISPEC 350.1.13.10 [place] [id number] [address] [facility] 2021-12-01 2021-12-15 Inpatient U [facility] [id number] Univers 04:26:00 14:53:00 OTTO ity [facility] 2021-12-01 2021-12-15 Hospital Erika Dickerson [facility] 1.2 .840.114 [id number] Univers 04:26:00 14:53:00 Encounter Colt Astorga NOÉ 350.1.13.10 ity of [place] 4.2.7.2.686 [facility] [id number] [address] ([facility]) 2021-11-29 2021-11-29 Emergency [facility] ERT [id number] Univers 09:18:00 10:44:00 CATARINA roy [facility] 2021-11-29 2021-11-29 Emergency [facility] 1.2.840.114 [id number] Univers 09:18:00 10:44:00 Catarina BLACKMAN 350.1.13.10 ity of [facility] 4.2.7.2.686 [facility] [id number] [facility] 084 Branch 2021-11-10 2021-11-10 Emergency X MICHELLE K [facility] ERT [id number] Univers 01:12:00 02:40:00 ity of [facility] 2021-11-10 2021-11-10 Emergency Lexy Butler [facility] 1.2.840.114 [id number] Univers 01:12:00 02:40:00 Rhiannon BLACKMAN 350.1.13.10 i ty of [place] 4.2.7.2.686 [facility] [id number] [facility] 084 Branch 2021-09-09 2021-09-09 Office Patricia, RICHMOND 6410 1.2.945.847 [id number] [place] 11:00:00 11:50:14 Visit Bhanu OREILLY 350.1.13.58 Health 9.2.7.2.686 [id number] 9 2021-09-03 2021-09-03 Outpatient Rosaura PARRA- [facility] RAD [id number] Univers 13:13:04 23:59:00 [facility] 2021-09-03 2021-09-03 [facility] 1.2.840.114 [id number] [facility] 13:00:00 23:59:00 Encounter HIRAL Loaiza 350.1.13.10 ity of [place] [facility] 4.2.7.2.686 T [facility] [id number] [facility] 806 Branch 2021-07-29 2021-07-29 Orders Doctor KEKE 1.2.840.114 [id number] [facility] 00:00:00 00:00:00 Only Unassigned, JOE 350.1.13.10 ity of [place] [facility] 4.2.7.2.686 Armin as [id number] [facility] 009 Branch 2021-07-15 2021-07-15 Telephone RICHMOND Cross 6410 1.2.840.114 1 [id number] [place] 00:00:00 00:00:[address] 350.1.13.58 Health 9.2.7.2.686 [id number] 3 2021-07-12 2021-07-12 Office RICHMOND Gomez 6410 1.2.358.149 [id number] [place] 13:00:00 13:46:19 Visit Bhanu FABIO OREILLY 350.1.13.58 Health 9.2.7.2.686 [id number] 9 2021-06-30 2021-06-30 Telephone RICHMOND Cross 6410 1.2.840.114 1 [id number] [place] 00:00:00 00:00:[address] 350.1.13.58 Health 9.2.7.2.686 [id number] 3 2021-06-30 2021-06-30 Telephone Suze Cramer [facility] 6410 1.2.840. 114 [id number] [place] 00:00:00 00:00:[address] 350.1.13.58 Health 9.2.7.2.686 [id number] 9 2021-06-28 2021-06-28 Telephone Richa Galeano [facility] 6410 1.2.840.1 14 [id number] [place] 00:00:00 00:00:[address] 350.1.13.58 Health 9.2.7.2.686 [id number] 3 2021-06-16 2021-06-16 Telephone Jazmine Vásquez [facility] 6410 1.2.840 .114 [id number] [place] 00:00:00 00:00:[address] 350.1.13.58 Health 9.2.7.2.686 [id number] 3 2021-06-12 2021-06-12 Emergency X [facility] ERT [id number] Univers 07:31:00 08:02:00 KIM roy [facility] 2021-06-12 2021-06-12 Emergency [facility] 1.2.059.913 [id number] Univers 07:31:00 08:02:00 Kim Janice [facility].10 [facility] 4.2.7.2.686 [facility] [id number] [address] 2021-05-27 2021-05-27 Office [facility]TP 6410 1.2.840.114 [id number] [place] 11:00:00 11:53:[address] 350.1.13.58 Health 9.2.7.2.686 [id number] 3 2021-05-25 2021-05-25 Telephone Justin Reynosokimberly [facility] 6410 1.2.840.114 [id number] [place] 00:00:00 00:00:[address] 350.1 .13.58 Health 9.2.7.2.686 [id number] 9 2021-04-22 2021-04-22 Office RICHMOND Gomez 6410 1.2.265.916 [id number] [place] 10:16:15 11:51:[address] 350.1.13.58 Health 9.2.7.2.686 [id number] 9 2021-02-28 2021-02-28 RICHMOND Lu 6410 1.2.840.114 1 [id number] [place] 00:00:00 00:00:[address] 350.1.13.58 Health 9.2.7.2.686 [id number] 3 2021-02-18 2021-02-18 Office RICHMOND Gomez 6410 1.2.323.448 [id number] [place] 09:28:53 09:58:53 Visit Bhanu OREILLY 350.1.13.58 Health 9.2.7.2.686 [id number] 9 2021-02-05 2021-02-05 [facility] 1.2.840.114 [id number] [facility] 11:00:00 23:59:00 Encounter Tiana Hiral 350.1.13.10 [facility] 4.2.7.2.686 [facility] [id number] [address] 2021-02-05 2021-02-05 Outpatient R [facility] RAD [id number] [facility] 00:00:00 00:00:00 TIANA [facility] 2021-01-21 2021-01-21 Office JoantarynRICHMOND bentley 6410 1.2.840.114 [id number] [place] 09:51:53 11:08:37 Visit Marii OREILLY 350.1.13.58 Health 9.2.7.2.686 [id number] 3 2021-01-18 2021-01-18 Telephone RICHMOND Cross 6410 1.2.840.114 1 [id number] [place] 00:00:00 00:00:[address] 350.1.13.58 Health 9.2.7.2.686 [id number] 3 2020-12-30 2020-12-30 Telephone Jazmine Vásquez 6410 1.2.840 .114 [id number] [place] 00:00:00 00:00:[address] 350.1.13.58 Health 9.2.7.2.686 [id number] 3 2020-12-28 2020-12-28 Orders Richa Galeano [facility] 6410 1.2.840.114 [id number] [place] 00:00:00 00:00:[address] 350.1.13.58 Health 9.2.7.2.686 [id number] 3 2020-12-28 2020-12-28 Telephone Richa Galeano [facility] 6410 1.2.840.1 14 [id number] [place] 00:00:00 00:00:[address] 350.1.13.58 Health 9.2.7.2.686 [id number] 3 2020-12-24 2020-12-24 Refill Vásquez, Jazmine UTP 6410 1.2.840.1 14 [id number] [place] 00:00:00 00:00:[address]ás[address]N ST 350.1.13.58 Health 9.2.7.2.686 [id number] 3 2020-12-24 2020-12-24 Refill Vásquez, Jazmine UTP 6410 1.2.840.1 14 [id number] [place] 00:00:00 00:00:[address] 350.1.13.58 Health 9.2.7.2.686 [id number] 3 2020-12-23 2020-12-23 Orders Richa Galeano [facility] 6410 1.2.840.114 [id number] [place] 00:00:00 00:00:[address] 350.1.13.58 Health 9.2.7.2.686 [id number] 3 2020-12-22 2020-12-22 Refill Vásquez, Jazmine UTP 6410 1.2.840.1 14 [id number] [place] 00:00:00 00:00:[address]ás[address] ST 350.1.13.58 Health 9.2.7.2.686 [id number] 3 2020-12-21 2020-12-21 Refill Vásquez, Jazmine UTP 6410 1.2.840.1 14 [id number] [place] 00:00:00 00:00:[address] 350.1.13.58 Health 9.2.7.2.686 [id number] 3 2020-12-08 2020-12-08 Telephone Shalonda Rojo [facility] 6410 1 .2.840.114 [id number] [place] 00:00:00 00:00:[address] 350.1. 13.58 Health 9.2.7.2.686 [id number] 3 2020-11-30 2020-11-30 Orders Richa Galeano [facility] 6410 1.2.840.114 [id number] [place] 00:00:00 00:00:[address] 350.1.13.58 Health 9.2.7.2.686 [id number] 3 2020-10-27 2020-10-27 Office [facility]TP 6410 1.2.840.114 [id number] [place] 09:13:12 11:15:[address] 350.1.13.58 Health 9.2.7.2.686 [id number] 3 2020-10-20 2020-10-20 Refill Shalonda Rojo [facility] 6410 1.2 .840.114 [id number] [place] 00:00:00 00:00:[address] 350.1. 13.58 Health 9.2.7.2.686 [id number] 3 2018-03-01 2018-03-01 Outpatient MHIE MHIE [id number] Memoria 14:15:00 14:15:00 04 [facility] 2018-03-01 2018-03-01 Outpatient MHIE MHIE [id number] Memoria 14:15:00 14:15:00 04 thalia [place] 2018-02-27 2018-02-28 Outpt Diag nullFlavo [facility] [id number] Memoria 14:49:00 04:59:00 Services r Outpatient 02 l [facility] 2018-02-27 2018-02-28 Outpt Diag nullFlavo [facility] [id number] Memoria 14:49:00 04:59:00 Services r Outpatient 02 thalia Briggs 2018-02-27 2018-02-27 [id number] 09:49:00 23:59:00 Gloria Torre 2018-01-18 2018-01-18 Outpatient KENYETTA KUMARI [id number] Memoria 14:15:00 14:15:00 03 thalia Rodriguez 2018-01-18 2018-01-18 Outpatient KENYETTA KUMARI [id number] Memoria 14:15:00 14:15:00 03 thalia Rodriguez 2017-12-05 2017-12-05 Outpatient KENYETTA KUMARI [id number] Memoria 16:00:00 16:00:00 02 thalia Rodriguez 2017-12-05 2017-12-05 Outpatient KENYETTA KUMARI [id number] Memoria 16:00:00 16:00:00 02 thalia Rodriguez 2017-11-29 2017-11-29 Outpatient KENYETTA KUMARI [id number] Memoria 11:00:00 11:00:00 01 thalia Rodriguez 2017-11-29 2017-11-29 Outpatient KENYETTA KUMARI [id number] Memoria 11:00:00 11:00:00 01 thalia Rodriguez 2017-11-10 2017-11-10 Outpatient KENYETTA KUMARI [id number] Memoria 09:45:00 09:45:00 00 thalia Rodriguez 2017-11-10 2017-11-10 Outpatient KENYETTA KUMARI [id number] Memoria 09:45:00 09:45:00 00 thalia Rodriguez Results Test Description Test Time Test Comments Results Result Comments Source POCT glucose manually resulted 2022-03-08 13:43:00 Test Item Value Reference Range Interpretation Comme nts Glucose Blood, POC (test code = 5281979) 254 mg/dL 70-180 A Lab Interpretation (test code = 05124-3) Abnormal [facility] [id number] 21:00:00 Test Item Value Reference Range Interpretation Comments GLUCOSE (test code = 671 mg/dL 65-99 HH Verifie d by 2345-7) repeat analysis . ? Fasti ng reference interval For someone without known diabetes, a glucosevalue >1 25 mg/dL indicates that they may havediabetes an d this should be confirmed with afollow-up test . UREA NITROGEN (BUN) 72 mg/dL 7-25 H (test code = 3094-0) CREATININE (test 2.34 mg/dL 0.5-1.05 H code = 2160-0) EGFR (test code = See_Comment L The eGFR i s based [id number]) on the CKD-EPI 2020 equation. To calculate the n ew eGFR from a previous Creatinine or Cystatin Cresul t, go to https://www.kid ne y.org/profmartin medina/kdoqi/gfr%5F ca lculator [Automated message] The system which generated this result transmitted reference range : > OR = 60 mL/min/1.73m2. The reference range was not used to interpr et this result as normal/abnormal . BUN/CREATININE RATIO See_Comment H [Autom ated (test code = 3097-3) message ] The system which generated this result transmitted reference range : 6 - 22 (calc). The reference range was not used to interpr et this result as normal/abnormal . SODIUM (test code = 127 mmol/L 135-146 L 2951-2) POTASSIUM (test code 4.8 mmol/L 3.5-5.3 = 2823-3) CHLORIDE (test code 89 mmol/L 98-110 L = 5-0) CARBON DIOXIDE (test 30 mmol/L 20-32 code = 8-9) CALCIUM (test code = 9.5 mg/dL 8.6-10.4 12672-4) PROTEIN, TOTAL (test 8.3 g/dL 6.1-8.1 H code = 2885-2) ALBUMIN (test code = 3.4 g/dL 3.6-5.1 L 1751-7) GLOBULIN (test code See_Comment H [Automa allison = 52093-5) message] The system which generated this result transmitted reference range : 1.9 - 3.7 g/dL (calc). The reference range was not used to interpret this result as normal/abnormal . ALBUMIN/GLOBULIN See_Comment L [Automated RATIO (test code = message] The 1759-0) system which generated this result transmitted reference range : 1.0 - 2.5 (calc ). The reference range was not used to interpr et this result as normal/abnormal . BILIRUBIN, TOTAL 0.4 mg/dL 0.2-1.2 (test code = 1975-2) ALKALINE PHOSPHATASE 230 U/L 37-153 H (test code = 6768-6) AST (test code = 10 U/L 10-35 1920-8) ALT (test code = 8 U/L 6-29 1742-6) RAC (test code = Performing RAC) Organization Information: ? ?Site ID: [facility] ? ?Name: [facility] [place] ? ?Address: [address] [place] [address] ? ?Director: COLT FIERRO MD Lab Interpretation Abnormal (test code = 73408-6) [place] [id number] 21:00:00 Test Item Value Reference Range Interpretation Comments PHOSPHATE ( 5.3 mg/dL 2.5-4.5 H PHOSPHORUS) (test code = 2777-1) RAC (test code = RAC) Performing Organization Information: ? ?Site ID: [facility] ? ?Name: [facility] ? ?Address: [address] [place] [address] ? ?Director: COLT FIERRO MD Lab Interpretation (test Abnormal code = 53040-3) [place] Health[facility], [id number] 21:00:00 Test Item Value Reference Range Interpretation Comments CALCIUM, IONIZED 4.9 mg/dL 4.8-5.6 REPORT (test code = COMMENT:FASTING :Y 60009-1) ES RAC (test code = Performing RAC) Organization Information: ? ?Site ID: [facility] ? ?Name: [facility] ? ?Address: [address] [place] [address] ? ?Director: COLT FIERRO MD [place] [id number] 21:00:00 Test Item Value Reference Range Interpretation Comments MAGNESIUM (test code 2.4 mg/dL 1.5-2.5 = 40237-7) RAC (test code = RAC) Performing Organization Information: ? ?Site ID: [facility] ? ?Name: [facility] [place] ? ?Address: [address] [place] [phone] ? ?Director: COLT FIERRO MD [place] HealthCBC and [id number] 19:00:00 Test Item Value Reference Range Interpretation Comments WHITE BLOOD CELL See_Comment [Automated COUNT (test code = message] The 6690-2) system which generated this result transmitted reference range : 3.8 - 10.8 Thousand/uL. Th e reference range was not used to interpret this result as normal/abnormal . RED BLOOD CELL COUNT See_Comment L [Autom ated (test code = 789-8) message] The system which generated this result transmitted reference range : 3.80 - 5.10 Million/uL. The reference range was not used to interpret this result as normal/abnormal . HEMOGLOBIN (test 7.1 g/dL 11.7-15.5 L code = 718-7) HEMATOCRIT (test 22.6 % 35-45 L code = 4544-3) MCV (test code = 97.8 fL 80-100 787-2) MCH (test code = 30.7 pg 27-33 785-6) MCHC (test code = 31.4 g/dL 32-36 L 786-4) RDW (test code = 20.6 % 11-15 H 788-0) PLATELET COUNT (test See_Comment [Autom ated code = 777-3) message] The system which generated this result transmitted reference range : 140 - 400 Thousand/uL. Th e reference range was not used to interpret this result as normal/abnormal . MPV (test code = 12 fL 7.5-12.5 776-5) ABSOLUTE NEUTROPHILS See_Comment [Autom [...] result as normal/abnormal . ABSOLUTE EOSINOPHILS See_Comment L [Autom ated (test code = 711-2) message] [...] this result as normal/abnormal . NEUTROPHILS (test 61.7 % code = 770-8) LYMPHOCYTES (test 27.8 % code = 736-9) MONOCYTES (test code 9.6 % = 5905-5) EOSINOPHILS (test 0 % code = 713-8) BASOPHILS (test code 0.9 % = 706-2) RAC (test code = Performing RAC) Organization Information: ? ?Site ID: [facility] ? ?Name: [facility] [place] ? ?Address: [address] [place] [phone] ? ?Director: COLT FIERRO MD Lab Interpretation Abnormal (test code = 01991-9) [facility] [id number] 19:00:00 Test Item Value Reference Range Interpretation Comments GLUCOSE (test code = 72 mg/dL 65-139 ? ? ? 2345-7) Non-fasting reference interval UREA NITROGEN (BUN) 67 mg/dL 7-25 H (test code = 3094-0) CREATININE (test 3.08 mg/dL 0.5-1.05 H code = 2160-0) EGFR (test code = See_Comment L The eGFR i s based [id number]) on the CKD-EPI 2020 equation. To calculate the n ew eGFR from a previous Creatinine or Cystatin Cresul t, go to https://www.kid ne y.org/profgoranio na ls/kdoqi/gfr%5F ca lculator [Automated message] The system which generated this result transmitted reference range : > OR = 60 mL/min/1.73m2. The reference range was not used to interpr et this result as normal/abnormal . BUN/CREATININE RATIO See_Comment [Autom ated (test code = 3097-3) message ] The system which generated this result transmitted reference range : 6 - 22 (calc). The reference range was not used to interpr et this result as normal/abnormal . SODIUM (test code = 140 mmol/L 357-380 7374-2) POTASSIUM (test code 4.8 mmol/L 3.5-5.3 = 2823-3) CHLORIDE (test code 108 mmol/L 98-110 = 5-0) CARBON DIOXIDE (test 24 mmol/L 20-32 code = 2027-9) CALCIUM (test code = 5.2 mg/dL 8.6-10.4 [place] [address]-5) repeat analysis . PROTEIN, TOTAL (test 7.4 g/dL 6.1-8.1 code = 2885-2) ALBUMIN (test code = 2.4 g/dL 3.6-5.1 L 1751-7) GLOBULIN (test code See_Comment H [Automa allison = 52523-1) message] The system which generated this result transmitted reference range : 1.9 - 3.7 g/dL (calc). The reference range was not used to interpret this result as normal/abnormal . ALBUMIN/GLOBULIN See_Comment L [Automated RATIO (test code = message] The ) system which generated this result transmitted reference range : 1.0 - 2.5 (calc ). The reference range was not used to interpr et this result as normal/abnormal . BILIRUBIN, TOTAL 0.3 mg/dL 0.2-1.2 (test code = 1974-) ALKALINE PHOSPHATASE 113 U/L 37-153 (test code = 6768-6) AST (test code = 11 U/L 10-35 1920-8) ALT (test code = 7 U/L 6-29 1742-6) RAC (test code = Performing RAC) Organization Information: ? ?Site ID: [facility] ? ?Name: [facility] ? ?Address: [address] [place] [phone] ? ?Director: COLT FIERRO MD Lab Interpretation Abnormal (test code = 35130-3) [facility] [id number] 19:00:00 Test Item Value Reference Range Interpretation Comments C-REACTIVE PROTEIN 36.3 mg/L See_Comment H [Automat ed (test code = 1987-10) message ] The system which generated this result transmitted reference range : <=8.0. The reference range was not used to interpret this result as normal/abnormal . RAC (test code = Performing RAC) Organization Information: ? ?Site ID: [facility] ? ?Name: [facility] ? ?Address: [address] [place] [phone] ? ?Director: COLT FIERRO MD Lab Interpretation Abnormal (test code = 42610-9) [place] [facility]inal[facility] with reflex [id number] 19:00:00 Test Item Value Reference Range Interpretation Comments COLOR (test code = YELLOW YELLOW 5778-6) APPEARANCE (test CLEAR CLEAR code = 5767-9) SPECIFIC GRAVITY 1.001-1.035 (test code = 5811-5) PH (test code = 5-8 5803-2) GLUCOSE (test code = NEGATIVE NEGATIVE 81245-1) BILIRUBIN (test code NEGATIVE NEGATIVE = 5770-3) KETONES (test code = NEGATIVE NEGATIVE 2514-8) BLOOD, UA (test code NEGATIVE NEGATIVE = 5794-3) PROTEIN (test code = TRACE NEGATIVE A 90773-0) NITRITE (test code = NEGATIVE NEGATIVE 5802-4) LEUKOCYTE ESTERASE NEGATIVE NEGATIVE (test code = 5799-2) WBC (test code = NONE SEEN See_Comment [Automated 5821-4) message] The system which generated this result transmitted reference range : < OR = 5 /HPF. The reference range was not used to interpr et this result as normal/abnormal . RBC (test code = NONE SEEN See_Comment [Automated 79709-2) message] The system which generated this result transmitted reference range : < OR = 2 /HPF. The reference range was not used to interpr et this result as normal/abnormal . SQUAMOUS EPITHELIAL NONE SEEN See_Comment [Automa allison CELLS (test code = message] The 80069-4) system which generated this result transmitted reference range : < OR = 5 /HPF. The reference range was not used to interpr et this result as normal/abnormal . BACTERIA (test code NONE SEEN NONE SEEN /HPF = 5769-5) HYALINE CAST (test NONE SEEN NONE SEEN /LPF code = 5796-8) RAC (test code = Performing RAC) Organization Information: ? ?Site ID: RGA ? ?Name: [facility] ? ?Address: [address] [place] [address] ? ?Director: COLT FIERRO MD Lab Interpretation Abnormal (test code = 03918-4) [place] HealthALBUMIN, RANDOM URINE W/CR (MICROALBUMIN)2021-12-31 19:00:00 Test Item Value Reference Interpretation Comments Range CREATININE, RANDOM 14 mg/dL 20-275 L URINE (test code = 2161-8) ALBUMIN, URINE 7.8 mg/dL Reference Ran geNot (test code = established 15828-9) MICROALBUMIN/CREATI See_Comment H The ADA defines NINE RATIO, RANDOM abnormali ties in URINE (test code = albuminex cretion as 9318-7) follows: Albumi juani Category ?Result (mcg/mg creatinine) Nor mal to Mildly incre ased ? <30Moderately increased ? 30-299 Severely increased ? > OR = 300 The ADA recommends that at least two of threespecimens collected withi n a 3-6 month perio d beabnormal befo re considering a patient to bewi thin a diagnostic category. [Auto mated message] The sy stem which generated this result transmit allison reference range : <30 mcg/mg creat. T he reference range was not used to interpret this result as normal/abnormal . RAC (test code = Performing RAC) Organization Information: ? ?Site ID: RGA ? ?Name: [facility] ? ?Address: [address] [place] [phone] ? ?Director: COLT FIERRO MD Lab Interpretation Abnormal (test code = 81110-1) [facility] ratio, [id number] 19:00:00 Test Item Value Reference Range Interpretation Comments CREATININE, RANDOM 14 mg/dL 20-275 L URINE (test code = 2161-8) PROTEIN/CREATININE See_Comment H [Automat ed RATIO (test code = message] The 2890-2) system which generated this result transmitted reference range : 0.021 - 0.161 mg/mg creat. Th e reference range was not used to interpret this result as normal/abnormal . PROTEIN, TOTAL, 34 mg/dL 5-24 H RANDOM UR (test code = 2888-6) RAC (test code = Performing RAC) Organization Information: ? ?Site ID: RGA ? ?Name: [facility] ? ?Address: [address] [place] [address] ? ?Director: COLT FIERRO MD Lab Interpretation Abnormal (test code = 77506-4) [facility] HealthHemoglobin [id number] 19:00:00 Test Item Value Reference Interpretation Comments Range HEMOGLOBIN A1c (test See_Comment H For charles vigil without code = 4548-4) known diabete s, a hemoglobin A1cv alue of 6.5% or grea ter indicates that they may have diabet es and this should be confirmed with a follow-up test. For someone with kn own diabetes, a rodrigue ue <7% indicates t hat their diabetes is well controlled and a value greater than or equal t o 7% indicates suboptimal cont rol. A1c targets caitlyn uld be individualiz ed based on durati on of diabetes, ag e, comorbid conditions, and other considerations. Currently, no consensus exist s regarding use ofhemoglobin A1 c for diagnosis o f diabetes for children. ? [Automated mess age] The system Adatao generated this result transmit allison reference range : <5.7 % of total Hgb. The refere nce range was not u sed to interpret th is result as normal/abnormal . RAC (test code = Performing RAC) Organization Information: ? ?Site ID: RGA ? ?Name: [facility] ? ?Address: [address] [place] [address] ? ?Director: COLT FIERRO MD Lab Interpretation Abnormal (test code = 66183-9) [place] [id number] 19:00:00 Test Item Value Reference Range Interpretation Comments NOTE (test See Below This urine was code = 8251-1) analyzed for the presence of WBC , RBC, bacteria, casts, and othe r formed elements . Only those elements seen w ere reported. REPOR T COMMENT:FASTING :NO RAC (test code Performing = RAC) Organization Information: ? ?Site ID: RGA ? ?Name: [facility] ? ?Address: [address] [place] [address] ? ?Director: COLT FIERRO MD [facility] GLUCOSE (AUTOMATED)2021-12-15 16:49:50 Test Item Value Reference Range Interpretation Comments POCT GLU (test code = 6478325378) 134 mg/dL 70-110 H Lab Interpretation (test code = Abnormal 35544-1) [facility] GLUCOSE (AUTOMATED)2021-12-15 13:01:11 Test Item Value Reference Range Interpretation Comments POCT GLU (test code = 0335261070) 172 mg/dL 70-110 H Lab Interpretation (test code = Abnormal 61581-5) [facility]. METABOLIC PANEL (64922)2021-12-15 10:13:04 Test Item Value Reference Range Interpretation Comments NA (test code = 134 mmol/L 135-145 L 5494542538) K (test code = 3.5 mmol/L 3.5-5.0 8492508702) CL (test code = 109 mmol/L 98-108 H 9797477128) CO2 TOTAL (test code = 18 mmol/L 23-31 L 7575009241) AGAP (test code = 2-16 0424565949) BUN (test code = 48 mg/dL 7-23 H 4603562854) GLUCOSE (test code = 183 mg/dL 70-110 H 7571270263) CREATININE (test code = 1.95 mg/dL 0.50-1.04 H 2409208090) TOTAL BILI (test code = 0.5 mg/dL 0.1-1.7 8414845707) CALCIUM (test code = 5.8 mg/dL 8.6-10.6 LL 4841359062) T PROTEIN (test code = 6.0 g/dL 6.3-8.2 L 4102217312) ALBUMIN (test code = 2.0 g/dL 3.5-5.0 L 3799119259) ALK PHOS (test code = 263 U/L 34-122 H 6702252912) ALTv (test code = 18 U/L 5-35 1742-6) AST(SGOT) (test code = 20 U/L 13-40 0003941104) eGFR (test code = mL/min/1.73m2 3565204569) FINA (test code = FINA) Association of [...] tests). Lab Interpretation Abnormal (test code = 90552-3) [facility] GLUCOSE (AUTOMATED)2021-12-15 01:37:21 Test Item Value Reference Range Interpretation Comments POCT GLU (test code = 2803628551) 255 mg/dL 70-110 H Lab Interpretation (test code = Abnormal 39305-3) [facility] GLUCOSE (AUTOMATED)2021-12-14 22:08:00 Test Item Value Reference Range Interpretation Comments POCT GLU (test code = 6531708816) 225 mg/dL 70-110 H Lab Interpretation (test code = Abnormal 02986-2) [facility] GLUCOSE (AUTOMATED)2021-12-14 17:14:50 Test Item Value Reference Range Interpretation Comments POCT GLU (test code = 9000294494) 209 mg/dL 70-110 H Lab Interpretation (test code = Abnormal 96979-2) [facility] [id number] 14:42:37 Test Item Value Reference Range Interpretation Comments ELUTION ID (test code Anti-Jka Perfor med at [facility] = 5160) Laboratory Serv [facility] Blood Bank3 [facility] [address]Bnks Free: [phone] A No. [id number] [facility] Paso[facility] MONOSPECIFIC C3 [id number] 14:03:32 Test Item Value Reference Range Interpretation Comments ZACHARY C3 (test code Weak Positive Performed at [facility] = 1421) Laboratory Serv [facility] Blood Bank3 [address] [facility] [address]Dtzm Free: [phone] A No. [id number] [facility] MONOSPECIFIC IGG [id number] 13:47:45 Test Item Value Reference Range Interpretation Comments ZACHARY IGG (test code Positive 2+ Performed at [facility] = 1422) Laboratory [facility] Blood [facility]3 [address] [facility] [address]Fexl Free: [phone] A No. [id number] [facility] POLYSPECIFIC [id number] 13:47:15 Test Item Value Reference Range Interpretation Comments ZACHARY POLY (test Weak Positive Performed at [facility] code = 1610) Laboratory [facility] Blood [facility]3 [address] [facility] [address]Eqwj Free: [phone] A No. [id number] [facility] PasoPANEL [id number] 13:19:38 ANTIBODY IDAnti-JkaUndetermined Spec Comment: Performed at [facility] Laboratory [facility] Blood [address] [place], [place] [address]Ejgw Free: [phone] No. [id number] [facility] ([facility])2021-12-14 12:43:10 Test Item Value Reference Range Interpretation Comments POCT GLU (test code = 1137773763) 185 mg/dL 70-110 H Lab Interpretation (test code = Abnormal 13285-6) [facility] METABOLIC PANEL (72488)2021-12-14 09:53:35 Test Item Value Reference Range Interpretation Comments NA (test code = 132 mmol/L 135-145 L 3328280911) K (test code = 3.8 mmol/L 3.5-5.0 2443686596) CL (test code = 110 mmol/L 98-108 H 3215430404) CO2 TOTAL (test code = 16 mmol/L 23-31 L 6827263781) AGAP (test code = 2-16 5638377751) BUN (test code = 50 mg/dL 7-23 H 1891653297) GLUCOSE (test code = 210 mg/dL 70-110 H 5122212153) CREATININE (test code = 2.17 mg/dL 0.50-1.04 H 8657098462) TOTAL BILI (test code = 0.7 mg/dL 0.1-1.8 1906259897) CALCIUM (test code = 5.7 mg/dL 8.6-10.6 LL 6635291560) T PROTEIN (test code = 5.7 g/dL 6.3-8.2 L 4003986784) ALBUMIN (test code = 1.9 g/dL 3.5-5.0 L 2510559810) ALK PHOS (test code = 315 U/L 34-122 H 7123457105) ALTv (test code = 22 U/L 5-35 1742-6) AST(SGOT) (test code = 38 U/L 13-40 4953296508) eGFR (test code = mL/min/1.73m2 3146353477) FINA (test code = FINA) Association of [...] tests). Lab Interpretation Abnormal (test code = 92880-5) [facility] WITH [id number] 05:21:58 Test Item Value Reference Range Interpretation [...] RDW-SD (test code = 48.4 fL 39.0-49.9 78530-7) RDW-CV (test code = 15.1 % 12.0-15.5 788-0) PLT (test code = See_Comment L [Automated 777-3) message] The sy stem which generated this result transmitted reference range : 166 - 358 10*3/ ?L. The reference r willem was not used to interpret this result as normal/abnormal . MPV (test code = 14.0 fL 9.5-12.9 H 74329-0) IPF % (test code = 13.3 % 1.3-7.7 H Platelet count 7726945481) measured by fluorescence method. NRBC/100 WBC (test See_Comment [Automat ed code = 1377457068) message] The system which generated this result transmitted reference range : 0.0 - 10.0 /100 WBCs. The refer ence range was not u sed to interpret th is result as normal/abnormal . NRBC x10^3 (test code See_Comment [Auto mated = 5825352715) message] The s ystem which generated this result transmitted reference range : 10*3/?L. The reference range was not used to interpret this result as normal/abnormal . GRAN MAT (NEUT) % 61.2 % (test code = 770-8) IMM GRAN % (test code 19.10 % = 8057750227) LYMPH % (test code = 9.4 % 736-9) MONO % (test code = 9.9 % 5905-5) EOS % (test code = 0.3 % 713-8) BASO % (test code = 0.1 % 706-2) GRAN MAT x10^3(ANC) 4.75 10*3/uL 1.88-7.09 (test code = 9829266457) IMM GRAN x10^3 (test 1.48 10*3/uL 0.00-0.06 H code = 7830907871) LYMPH x10^3 (test code 0.73 10*3/uL 1.32-3.29 L = 731-0) MONO x10^3 (test code 0.77 10*3/uL 0.33-0.92 = 742-7) EOS x10^3 (test code = <0.03 0.03-0.39 L 711-2) BASO x10^3 (test code <0.03 0.01-0.07 = 704-7) BANDS (test code = Increased A 0269057686) TOXIC CHANGES (test Present A code = 803-7) Lab Interpretation Abnormal (test code = 15110-7) [facility] Paso[facility] and Screen - ONCE [id number] 05:06:37 Test Item Value Reference Range Interpretation Comments ABO & RH (test O Positive Performed at [facility] code = 20) Laboratory Serv [facility] Blood [address] [place] [address]Rkhb Free: [phone] A No. [id number] IAT (test code = Positive Pos AbScree n previously 1185) called to Ki chawla this admit. JCPerfor med at [facility] Laboratory Services - [facility] Blood Ban [address] [place], [place] [address]Vmoo Free: [phone] A No. [id number] [facility]2021-12-14 01:36:17 Test Item Value Reference Range Interpretation Comments POCT GLU (test code = 8116958033) 182 mg/dL 70-110 H Lab Interpretation (test code = Abnormal 86128-4) [facility] CULTURE [id number] 23:01:25 Test Item Value Reference Range Interpretation Comments Blood Culture-Aerobic No organisms No growth Previo us (test code = 35094-4) isolated prelim inary verified result was Culture [...] Culture-Anaerobic isolated preliminar y (test code = 95801-5) verifi ed result was Culture In Progress [...] CDT Lab Interpretation Normal (test code = 36648-8) [facility] CULTURE [id number] 23:01:25 Test Item Value Reference Range Interpretation Comments Blood Culture-Aerobic No organisms No growth Previo us (test code = 50722-2) isolated prelim inary verified result was Culture [...] Culture-Anaerobic isolated preliminar y (test code = 13795-7) verifi ed result was Culture In Progress [...] CDT Lab Interpretation Normal (test code = 93713-2) [facility] GLUCOSE (AUTOMATED)2021-12-13 22:01:38 Test Item Value Reference Range Interpretation Comments POCT GLU (test code = 7521835494) 231 mg/dL 70-110 H Lab Interpretation (test code = Abnormal 11964-0) [facility] [id number] 19:25:08 Test Item Value Reference Range Interpretation Comments NT-proBNP (test code 21536 pg/mL See_Comment H [Autom ated = 3234623392) message] The system which generated this result transmitted reference range : <=125. The reference range was not used to interpret this result as normal/abnormal . FINA (test code = FINA) Biotin has been reported to cause a negative bias, interpret results relative to patient's use of biotin. Lab Interpretation Abnormal (test code = 93221-1) [facility] GLUCOSE (AUTOMATED)2021-12-13 17:23:38 Test Item Value Reference Range Interpretation Comments POCT GLU (test code = 1690363339) 168 mg/dL 70-110 H Lab Interpretation (test code = Abnormal 56778-8) [facility] PasoANTIGEN TYPING [id number] 14:23:12 Test Item Value Reference Range Interpretation Comments ANTIGEN ID (test Jka Antigen Pre-Sample drawn code = 5072) Negative 2Perfor med at [facility] or Services - [facility] Blood [address] [place] [address]Jskc Free: [phone] A No. [id number] [facility])2021-12-13 12:48:49 Test Item Value Reference Range Interpretation Comments POCT GLU (test code = 5529986750) 116 mg/dL 70-110 H Lab Interpretation (test code = Abnormal 30625-2) [facility] WITH [id number] 10:28:40 Test Item Value Reference Range Interpretation [...] RDW-SD (test code = 48.9 fL 39.0-49.9 94866-8) RDW-CV (test code = 15.1 % 12.0-15.5 788-0) PLT (test code = See_Comment L [Automated 777-3) message] The sy stem which generated this result transmitted reference range : 166 - 358 10*3/ ?L. The reference r willem was not used to interpret this result as normal/abnormal . MPV (test code = 13.5 fL 9.5-12.9 H 10660-1) IPF % (test code = 10.4 % 1.3-7.7 H Platelet count 3495196716) measured by fluorescence method. NRBC/100 WBC (test See_Comment [Automat ed code = 1832778075) message] The system which generated this result transmitted reference range : 0.0 - 10.0 /100 WBCs. The refer ence range was not u sed to interpret th is result as normal/abnormal . NRBC x10^3 (test code See_Comment [Auto mated = 3260345517) message] The s ystem which generated this result transmitted reference range : 10*3/?L. The reference range was not used to interpret this result as normal/abnormal . SEG % (test code = 70 % 33-76 59098-8) BAND % (test code = 11 % 0-1 H 42667-3) META % (test code = 6 % See_Comment H [Automa allison 48121-2) message] The sy stem which generated this result transmitted reference range : <=0. The refere nce range was not u sed to interpret th is result as normal/abnormal . MYELO % (test code = 4 % See_Comment H [Autom ated 97633-8) message] The sy stem which generated this result transmitted reference range : <=0. The refere nce range was not u sed to interpret th is result as normal/abnormal . PROMYELO % (test code 2 % See_Comment H [Auto mated = 35558-0) message] The sy stem which generated this result transmitted reference range : <=0. The refere nce range was not u sed to interpret th is result as normal/abnormal . LYMPH % (test code = 2 % 14-54 L 02198-2) MONO % (test code = 3 % 0-4 84735-5) EOS % (test code = 2 % 0-3 06775-5) ANC (test code = 6.16 10*3/uL 1.88-7.09 753-4) Lab Interpretation Abnormal (test code = 46281-3) [facility] METABOLIC PANEL (NA, K, CL, CO2, GLUCOSE, BUN, CREATININE, CA)2021-12-13 09:46:38 Test Item Value Reference Range Interpretation Comments NA (test code = 132 mmol/L 135-145 L 3943676784) K (test code = 3.7 mmol/L 3.5-5.0 3216837381) CL (test code = 110 mmol/L 98-108 H 2451499692) CO2 TOTAL (test code = 15 mmol/L 23-31 L 6893450080) AGAP (test code = 2-16 7214793483) BUN (test code = 51 mg/dL 7-23 H 8154991014) GLUCOSE (test code = 104 mg/dL 70-110 2319088985) CREATININE (test code = 2.48 mg/dL 0.50-1.04 H 2337890888) CALCIUM (test code = 6.0 mg/dL 8.6-10.6 L 0492445331) eGFR (test code = mL/min/1.73m2 9027699486) FINA (test code = FINA) Association of [...] tests). Lab Interpretation Abnormal (test code = 65634-4) [facility] 01:38:50 Test Item Value Reference Range Interpretation Comments POCT GLU (test code = 0578128774) 97 mg/dL 70-110 Lab Interpretation (test code = Normal 02248-1) [facility] PasoVancomycin Random [id number] 23:53:29 Test Item Value Reference Range Interpretation Comments VANCO RANDOM (test code = 16.5 ug/mL 2169523730) [facility] GLUCOSE (AUTOMATED)2021-12-12 21:59:51 Test Item Value Reference Range Interpretation Comments POCT GLU (test code = 0359854021) 144 mg/dL 70-110 H Lab Interpretation (test code = Abnormal 08263-7) [facility] GLUCOSE (AUTOMATED)2021-12-12 16:47:00 Test Item Value Reference Range Interpretation Comments POCT GLU (test code = 1855669140) 180 mg/dL 70-110 H Lab Interpretation (test code = Abnormal 46101-7) [facility] PasoMipr. Sendout- (1,3)-Zync-I-Uvejpa (Fungitell) 2021-12-12 16:35:51 Test Item Value Reference Range Interpretation Comments Miscellaneous Test (test See scanned report code = 0482942857) Performing Lab (test code ARUP = 1977002179) [facility] PasoIONIZED [id number] 15:58:58 Test Item Value Reference Range Interpretation Comments IONIZED CA (test code = 3.40 mg/dL 4.50-5.30 L 8700475251) PH SERUM (test code = 1442719449) 7.35-7.45 Lab Interpretation (test code = Abnormal 55892-7) [facility] GLUCOSE (AUTOMATED)2021-12-12 12:19:37 Test Item Value Reference Range Interpretation Comments POCT GLU (test code = 3837142165) 180 mg/dL 70-110 H Lab Interpretation (test code = Abnormal 46711-0) [facility] PasoCB WITH [id number] 11:15:19 Test Item Value Reference Range Interpretation Comments WBC (test code = See_Comment [Automated 7090-2) message] The sy stem which generated this [...] RDW-SD (test code = 47.0 fL 39.0-49.9 86242-5) RDW-CV (test code = 14.8 % 12.0-15.5 788-0) PLT (test code = See_Comment L [Automated 777-3) message] The sy stem which generated this result transmitted reference range : 166 - 358 10*3/ ?L. The reference r willem was not used to interpret this result as normal/abnormal . MPV (test code = 13.0 fL 9.5-12.9 H 58491-1) IPF % (test code = 11.3 % 1.3-7.7 H Platelet count 9990263985) measured by fluorescence method. NRBC/100 WBC (test See_Comment [Automat ed code = 7912653460) message] The system which generated this result transmitted reference range : 0.0 - 10.0 /100 WBCs. The refer ence range was not u sed to interpret th is result as normal/abnormal . NRBC x10^3 (test code See_Comment [Auto mated = 1146175862) message] The s ystem which generated this result transmitted reference range : 10*3/?L. The reference range was not used to interpret this result as normal/abnormal . SEG % (test code = 44 % 33-76 03702-2) BAND % (test code = 32 % 0-1 H 09330-3) META % (test code = 5 % See_Comment H [Automa allison 83822-2) message] The sy stem which generated this result transmitted reference range : <=0. The refere nce range was not u sed to interpret th is result as normal/abnormal . MYELO % (test code = 4 % See_Comment H [Autom ated 36636-2) message] The sy stem which generated this result transmitted reference range : <=0. The refere nce range was not u sed to interpret th is result as normal/abnormal . PROMYELO % (test code 2 % See_Comment H [Auto mated = 48566-4) message] The sy stem which generated this result transmitted reference range : <=0. The refere nce range was not u sed to interpret th is result as normal/abnormal . LYMPH % (test code = 6 % 14-54 L 11854-9) MONO % (test code = 6 % 0-4 H 33216-1) EOS % (test code = 1 % 0-3 00806-5) ANC (test code = 5.73 10*3/uL 1.88-7.09 753-4) Lab Interpretation Abnormal (test code = 66581-8) [facility] METABOLIC PANEL (NA, K, CL, CO2, GLUCOSE, BUN, CREATININE, CA)2021-12-12 10:17:58 Test Item Value Reference Range Interpretation Comments NA (test code = 130 mmol/L 135-145 L 1784654467) K (test code = 3.6 mmol/L 3.5-5.0 3249361900) CL (test code = 109 mmol/L 98-108 H 5129577085) CO2 TOTAL (test code = 15 mmol/L 23-31 L 5242644298) AGAP (test code = 2-16 9384891993) BUN (test code = 52 mg/dL 7-23 H 6407123458) GLUCOSE (test code = 173 mg/dL 70-110 H 7551056375) CREATININE (test code = 2.58 mg/dL 0.50-1.04 H 9501946751) CALCIUM (test code = 5.3 mg/dL 8.6-10.6 LL 3794167736) eGFR (test code = mL/min/1.73m2 7475542425) FINA (test code = FINA) Association of [...] tests). Lab Interpretation Abnormal (test code = 26804-4) [facility] Paso[facility]IUM2022-07-03 10:08:53 Test Item Value Reference Range Interpretation Comments MAGNESIUM (test code = 6472301900) 2.2 mg/dL 1.7-2.4 Lab Interpretation (test code = Normal 34125-2) [facility] PasoPHOSPHORUS2022-07-03 10:08:53 Test Item Value Reference Range Interpretation Comments PHOSPHORUS (test code = 1746143963) 2.6 mg/dL 2.5-5.0 Lab Interpretation (test code = Normal 02700-2) [facility]2021-12-12 02:17:16 Test Item Value Reference Range Interpretation Comments POCT GLU (test code = 2859681188) 115 mg/dL 70-110 H Lab Interpretation (test code = Abnormal 01697-4) [facility] WITHOUT [id number] 00:08:55 Test Item Value Reference Range Interpretation Comments WBC (test code = See_Comment [Automated message] 6690-2) The system [employer] generated this result transmitted ref erence range: 4.30 - 1 1.10 10*3/?L. The reference range was not used to int erpret this result as normal/abnormal . RBC (test code = 789-8) See_Comment L [Au tomated message] The system [employer] generated this result transmitted ref erence range: [...] See_Comment L [Au tomated message] The system [employer] generated this result transmitted ref erence range: 166 - 35 8 10*3/?L. The reference range was not used to int erpret this result as normal/abnormal . MPV (test code = 12.9 fL 9.5-12.9 08733-4) RDW-CV (test code = 14.6 % 12.0-15.5 788-0) RDW-SD (test code = 47.0 fL 39.0-49.9 89516-2) NRBC x10^3 (test code = See_Comment [Au tomated message] 6726226321) The system [employer] generated this result transmitted ref erence range: 10*3/?L. The reference range was not used to int erpret this result as normal/abnormal . NRBC/100 WBC (test code See_Comment [Au tomated message] = 1165266520) The system [facility] generated this result transmitted ref erence range: 0.0 - 10 .0 /100 WBCs. The reference range was not used to int erpret this result as normal/abnormal . IPF % (test code = 12.2 % 1.3-7.7 H Platelet count 2339560958) measured by fluorescence me thod. Lab Interpretation Abnormal (test code = 38207-6) [facility] [id number] 00:07:15 Test Item Value Reference Range Interpretation Comments VANCO RANDOM (test code = 21.2 ug/mL 0831733227) [facility] GLUCOSE (AUTOMATED)2021-12-11 21:57:08 Test Item Value Reference Range Interpretation Comments POCT GLU (test code = 0172382878) 132 mg/dL 70-110 H Lab Interpretation (test code = Abnormal 64359-9) [facility] Paso[facility] Packed RBC (in units)2021-12-11 17:50:14 Test Item Value Reference Range Interpretation Comments Unit Blood Type (test O Pos code = 4410) ISBT Blood Type Code (test code = 570111) Unit Number (test [id number] code = 4411) Blood Expiration Date & Time (test code = 392984) Status Information Issued (test code = 4412) Product Red Blood Cells Identification (test code = 4413) Product Code (test [id number] Performed at [facility] code = 4414) Laboratory Services - [facility] Blood [address] [place] [address]Uxdr Free: [phone] A No. [id number] Cross Match Result Compatible (test code = 4409) [facility] GLUCOSE (AUTOMATED)2021-12-11 16:30:47 Test Item Value Reference Range Interpretation Comments POCT GLU (test code = 2607876254) 127 mg/dL 70-110 H Lab Interpretation (test code = Abnormal 25351-0) [facility] WITH [id number] 10:39:55 Test Item Value Reference Range Interpretation Comments WBC (test code = See_Comment [Automated 1490-2) message] The sy stem which generated this result transmitted reference range : 4.30 - 11.10 10*3/?L. The reference range was not used to interpret this result as normal/abnormal . RBC (test code = See_Comment L [Automated 969-8) message] The sy stem which generated this [...] RDW-SD (test code = 45.8 fL 39.0-49.9 13831-7) RDW-CV (test code = 14.3 % 12.0-15.5 788-0) PLT (test code = See_Comment L [Automated 777-3) message] The sy stem which generated this result transmitted reference range : 166 - 358 10*3/ ?L. The reference r willem was not used to interpret this result as normal/abnormal . MPV (test code = 13.5 fL 9.5-12.9 H 99880-3) IPF % (test code = 14.6 % 1.3-7.7 H Platelet count 7481776312) measured by fluorescence method. NRBC/100 WBC (test See_Comment [Automat ed code = 0836766389) message] The system which generated this result transmitted reference range : 0.0 - 10.0 /100 WBCs. The refer ence range was not u sed to interpret th is result as normal/abnormal . NRBC x10^3 (test code See_Comment [Auto mated = 5644613028) message] The s ystem which generated this result transmitted reference range : 10*3/?L. The reference range was not used to interpret this result as normal/abnormal . SEG % (test code = 61 % 33-76 38796-5) BAND % (test code = 22 % 0-1 H 89156-8) META % (test code = 5 % See_Comment H [Automa allison 42749-4) message] The sy stem which generated this result transmitted reference range : <=0. The refere nce range was not u sed to interpret th is result as normal/abnormal . MYELO % (test code = 3 % See_Comment H [Autom ated 93059-4) message] The sy stem which generated this result transmitted reference range : <=0. The refere nce range was not u sed to interpret th is result as normal/abnormal . PROMYELO % (test code 1 % See_Comment H [Auto mated = 03851-6) message] The sy stem which generated this result transmitted reference range : <=0. The refere nce range was not u sed to interpret th is result as normal/abnormal . LYMPH % (test code = 4 % 14-54 L 26140-1) MONO % (test code = 4 % 0-4 09381-5) ANC (test code = 7.46 10*3/uL 1.88-7.09 H 753-4) DOHLE BODIES (test Present A code = 7792-5) TOXIC CHANGES (test Present A code = 803-7) Lab Interpretation Abnormal (test code = 04972-2) [facility] (NA, K, CL, CO2, GLUCOSE, BUN, CREATININE, CA)2021-12-11 10:04:43 Test Item Value Reference Range Interpretation Comments NA (test code = 132 mmol/L 135-145 L 0558799536) K (test code = 3.8 mmol/L 3.5-5.0 6289499171) CL (test code = 109 mmol/L 98-108 H 1379003271) CO2 TOTAL (test code = 16 mmol/L 23-31 L 9329587229) AGAP (test code = 2-16 9899315265) BUN (test code = 53 mg/dL 7-23 H 8743007418) GLUCOSE (test code = 103 mg/dL 70-110 6867424510) CREATININE (test code = 2.63 mg/dL 0.50-1.04 H 2093721750) CALCIUM (test code = 5.7 mg/dL 8.6-10.6 LL 4909425526) eGFR (test code = mL/min/1.73m2 1319787741) FINA (test code = FINA) Association of [...] tests). Lab Interpretation Abnormal (test code = 86613-8) [facility]2022-07-02 09:57:48 Test Item Value Reference Range Interpretation Comments MAGNESIUM (test code = 9705148324) 2.3 mg/dL 1.7-2.4 Lab Interpretation (test code = Normal 32506-8) [facility] PasoTransfusion Reaction Crvvgxfmxvhcf4156-18-27 09:35:28 Test Item Value Reference Range Interpretation Comments POST IAT (test Positive Performed at [facility] code = 2111) Laboratory Serv [facility] Blood Bank3 [address] [facility] [place] s [address]Ctcc Free: [phone] A No. [id number] PRE IAT (test Negative Performed at [facility] code = 2112) Laboratory Serv [facility] Blood Bank3 [facility] [address]Zdym Free: [phone] A No. [id number] PRE ABO & RH O Positive Performed at [facility] (test code = Laboratory Serv [facility] - [address] Blood Bank3 [address] [facility] [address]Tweh Free: [phone] A No. [id number] PRE XM INT (test Incompatible [id number] 13 code = 1632) [id number] at [facility] Laboratory [facility] Blood [facility]3 [address] [facility] [address]Uqql Free: [phone] A No. [id number] POST IGG (test Weak Positive Performed at [facility] code = 1618) Laboratory [facility] Blood [facility]3 [address] [facility] [address]Gael Free: [phone] A No. [id number] POST C3 (test Negative Performed at [facility] code = 1617) Laboratory [facility] Blood [facility]3 [address] [facility] [address]Gubw Free: [phone] A No. [id number] POST XM INT (test Incompatible [id number] 913 code = 1596) [id number] at [facility] Laboratory [facility] Blood [facility]3 [address] [facility] [address]Tusv Free: [phone] A No. [id number] [facility] PasoTRXN [id number]-UQAYSDJFXBM8085-11-02 09:26:48 Test Item Value Reference Range Interpretation Comments CLERICAL CK AcceptableSee Units transfus ed and (test code = Comment unavailable.Per forme 542) d at [facility] Blood [address] [place], [place] [address]Bsub Free: [phone] A No. [id number] PRE SERUM (test No Hemolysis NotedNo Perf ormed at [facility] code = 1637) Icterus Noted Laboratory Ser [facility] Blood Ban k[address] [facility] [address]Xlrh Free: [phone] A No. [id number] PRE ZACHARY (test Negative Performed at [facility] code = 1636) Laboratory Serv [facility] - [facility] Blood [address] [address]Dvmb Free: [phone] A No. [id number] POST ABO & RH O Positive Performed at [facility] (test code = Laboratory Serv ices 1616) - [facility] Blood [address] [address]Guqn Free: [phone] A No. [id number] POST ZACHARY (test Weak Positive Performed at [facility] code = 1619) Laboratory Serv [facility] - [facility] Blood [address] [address]Vido Free: [phone] A No. [id number] POST SERUM No Hemolysis NotedNo Perform ed at [facility] (test code = Icterus Noted Laboratory Ser vices 1620) - [facility] Blood [address] [address]Innc Free: [phone] A No. [id number] PRELIM RESULT Positive TxRxn Positive: Ex tended (test code = investigation i n 3962) process; Blood Bank physician interpretation to follow.Performe d at [facility] Laboratory Services - [facility] Blood [place] [address]Toll Free: [phone] A No. [id number] PRODUCT (test RBC- See comment [id number] 077 E0332, code = 2110) [id number] E 0332, [id number] U0469Ijejswwqj at [facility] Laboratory Services - [facility] Blood [address] [address]Somw Free: [phone] A No. [id number] [facility] [id number] 07:40:49 ANTIBODY IDAnti-JkaUndetermined Spec Comment: Performed at [facility] Laboratory Services - [facility] Blood [address] Free: [phone] No. [id number] [facility] ASESNRGDBHUMYY3107-74-08 07:40:47 Test Item Value Reference Range Interpretation Comments ELUTION ID (test code Negative Eluate nonreactive with = 5160) all cells tested.Performe d at [facility] Laboratory [facility] Blood Bank3 [address] [facility] [place] s [address]Wbro Free: [phone] A No. [id number] [facility] GLUCOSE (AUTOMATED)2021-12-11 01:44:40 Test Item Value Reference Range Interpretation Comments POCT GLU (test code = 4429096635) 165 mg/dL 70-110 H Lab Interpretation (test code = Abnormal 21824-4) [facility] GLUCOSE (AUTOMATED)2021-12-10 23:49:31 Test Item Value Reference Range Interpretation Comments POCT GLU (test code = 6687525630) 221 mg/dL 70-110 H Lab Interpretation (test code = Abnormal 28348-9) [facility] PasoType and Screen - ONCE [id number] 22:55:36 Test Item Value Reference Range Interpretation Comments ABO & RH (test code O Positive Performe d at [facility] = 20) Laboratory [facility] Blood Bank[address] [place] [address]Yahg Free: [phone] A No. [id number] IAT (test code = Positive Performed a t [facility] 1185) Laboratory [facility] Blood Bank[address] [place] [address]Jmjb Free: [phone] A No. [id number] [facility] PasoTHYROID STIMULATING [id number] 21:54:55 Test Item Value Reference Range Interpretation Comments TSH (test code = See_Comment [Automated message] 8783754288) The system [employer] generated this result transmitted ref erence range: 0.45 - 4 .70 mIU/L. The refe rence range was not u sed to interpret this result as normal/abnor mal. Lab Interpretation (test Normal code = 80357-4) [facility] WITH [id number] 21:31:03 Test Item Value Reference Range Interpretation Comments WBC (test code = See_Comment [Automated 6690-2) message] The system which generated [...] RDW-SD (test code = 45.0 fL 39.0-49.9 16309-5) RDW-CV (test code = 14.4 % 12.0-15.5 788-0) PLT (test code = See_Comment L [Automated 777-3) message] The system which generated this result transmit allison reference range : 166 - 358 10*3/ ?L. The reference range was not u sed to interpret th is result as normal/abnormal . MPV (test code = 14.5 fL 9.5-12.9 H 77774-4) IPF % (test code = 14.1 % 1.3-7.7 H Platelet count 5358335161) measured by fluorescence method. NRBC/100 WBC (test See_Comment [Automat ed code = 8880849417) message] The system which generated this result transmit allison reference range : 0.0 - 10.0 /100 WBCs. The reference range was not used to interpret this result as normal/abnormal . NRBC x10^3 (test code See_Comment [Auto mated = 0671770861) message] The system which generated this result transmit allison reference range : 10*3/?L. The reference range was not used to interpret this result as normal/abnormal . SEG % (test code = 50 % 33-76 55919-0) BAND % (test code = 26 % 0-1 H 64650-6) META % (test code = 4 % See_Comment H [Automa allison 13808-6) message] The system which generated this result transmit allison reference range : <=0. The refere nce range was not u sed to interpret th is result as normal/abnormal . MYELO % (test code = 4 % See_Comment H [Autom ated 13692-5) message] The system which generated this result transmit allison reference range : <=0. The refere nce range was not u sed to interpret th is result as normal/abnormal . PROMYELO % (test code 2 % See_Comment H [Auto mated = 97723-0) message] The system which generated this result transmit allison reference range : <=0. The refere nce range was not u sed to interpret th is result as normal/abnormal . LYMPH % (test code = 10 % 14-54 L 30295-8) MONO % (test code = 4 % 0-4 37595-1) EOS % (test code = 2 % 0-3 14275-3) ANC (test code = 3.86 10*3/uL 1.88-7.09 753-4) DOHLE BODIES (test Present A code = 7792-5) TOXIC CHANGES (test Present A code = 803-7) FINA (test code = FINA) Reviewed by Leonardo Costello M.D., Director of HEMATOPATHOLOGY . Lab Interpretation Abnormal (test code = 36170-9) [facility] Paso[facility]com[facility] Random [id number] 21:27:29 Test Item Value Reference Range Interpretation Comments VANCO RANDOM (test code = 14.9 ug/mL 9341768371) [facility]AUT[facility]ATED)2021-12-10 19:33:49 Test Item Value Reference Range Interpretation Comments POCT GLU (test code = 5985647355) 204 mg/dL 70-110 H Lab Interpretation (test code = Abnormal 22256-2) [facility] PasoBLOOD CULTURE [id number] 19:01:23 Test Item Value Reference Range Interpretation Comments Blood Culture-Aerobic No organisms No growth Previo us (test code = 97215-4) isolated prelim inary verified result was Culture [...] Culture-Anaerobic isolated preliminar y (test code = 56953-0) verifi ed result was Culture In Progress [...] CDT Lab Interpretation Normal (test code = 04089-4) [facility] CULTURE [id number] 19:01:23 Test Item Value Reference Range Interpretation Comments Blood Culture-Aerobic No organisms No growth Previo us (test code = 31386-9) isolated prelim inary verified result was Culture [...] Culture-Anaerobic isolated preliminar y (test code = 54357-9) verifi ed result was Culture In Progress [...] CDT Lab Interpretation Normal (test code = 14298-5) [facility] PasoHLA-ABC-DR TYPING [id number] 19:01:00 Test Item Value Reference Range Interpretation [...] additional antigen not yet identified. Performed at [facility] Pathology Clinical Services Laboratories - Tissue AntigenDIRECTOR: ?MISA MARY MD, [address] [place] [address] ?[address]Ukbhw: [phone] No. [id number] ANALYTE SPECIFIC REAGENT STATEMENT: ?This test was developed and its performance characteristics determined by the [facility] Tissue Antigen Laboratory. ?The test has not been cleared or approved by the [place] [employer] (USFDA). ?The USFDA does not require licensing of reagents used in these tests. VERIFIED BY: ?Osmany Pinedo (electronic signature) 12/10/2021 REPORT DTE (test 12/10/2021 code = 3094) TECH (test code = SM/CA 3095) [facility] PasoANTIBODY SCREEN [id number] 18:59:00 Test Item Value Reference Range Interpretation [...] 6, 15, 18 METHOD (test code = [employer] 3209) COMMENTS (test code Performed at [facility] = 3210) Pathology Clinical Services Laboratories - Tissue AntigenDIRECTOR: ?MISA MARY MD, FWV[address] [place] [address] ?[address]Ldrcu: [phone] No. [id number] ANALYTE SPECIFIC REAGENT STATEMENT: ?This test was developed and its performance characteristics determined by the [facility] Tissue Antigen Laboratory. ?The test has not been cleared or approved by the [place] [employer] (USFDA). ?The USFDA does not require licensing of reagents used in these tests. VERIFIED BY: ?Osmany Pinedo (electronic signature) 12/10/2021 REPORT DTE (test 12/10/2021 code = 3211) TECH (test code = RR 3212) [facility] PasoTransthoracic echo (TTE)2021-12-10 18:42:37 Test Item Value Reference Range Interpretation Comments Height (test code = in 7407702027) Weight (test code = lbs 5941262607) Systolic BP (test code = mmHg 4761068660) Diastolic BP (test code = mmHg 9198664747) Heart Rate (test code = bpm 1523077647) LVOT stroke volume (test 63.10 cm3 code = 6131286731) EF(Teich) (test code = 76.50 % 7740749370) LVIDD (test code = 4.60 cm 1871895280) LVIDS (test code = 2.50 cm 0007006676) IVS (test code = 0.86 cm 8358057467) LVPWD (test code = 0.86 cm 1884087623) LVOT diameter (test code = 2.01 cm 8667615484) FS (test code = 45 % 4001146567) MV Peak E Cathryn (test code = 126.4 cm/s 1201023374) MV Peak A Cathryn (test code = 105.6 cm/s 1927348259) E/A ratio (test code = ratio 9883439932) E wave decelartion time 0.24 s (test code = 6792660860) MV E/e' septal (test code 7.1 cm/s = 2117401661) LA Volume Index (BP) (test 40.5 mL/m2 code = 4624326068) LA volume (BP) (test code 81.8 mL = 7734051654) LVOT peak cathryn (test code = 106.1 cm/s 7776029614) LVOT mn grad (test code = mmHg 4357428009) BSA (test code = 2.02 m2 4634366877) LA size (test code = 4.2 cm 5010296752) LAV(MOD-sp2) (test code = 76.30 mL 8861610648) LAV(MOD-sp4) (test code = 77.30 mL 9135213925) Tapse (test code = 2.31 cm 0542400802) Aortic valve mean velocity 167.9 cm/s (test code = 1144721608) Ao peak cathryn (test code = 255.3 cm/s 7459925470) Ao VTI (test code = 44.3 cm 4823047670) AV LVOT peak gradient mmHg (test code = 6316403219) LVOT peak VTI (test code = 19.9 cm 6369650711) AV area by cont VTI (test 1.4 cm2 code = 6227768307) AV area peak cathryn (test 1.3 cm2 code = 4831930207) LV V1 mean (test code = 70.80 cm/s 0167921094) Ao max PG (test code = 26.10 mm[Hg] 5305054093) MV Prop V (test code = 59.80 cm/s 7413785632) Ao root annulus (test code 3.3 cm = 0102358023) Ao root diam (test code = 3.30 cm 0400523756) AV peak gradient (test mmHg code = 1676215806) AV valve area (test code = 1.42 cm2 3268664815) AV mean gradient (test mmHg code = 7105547436) Aortic root (test code = 3.3 cm 8570372230) PW (test code = 0.86 cm 0.6-1.9 0428904398) EF - 2D (test code = 76.50 % 19562710) Interventricular Septum 0.86 cm Diastolic Thickness by 2D (test code = 9725001) Radiology Study observation (narrative) (test code = 50534-8) FINA (test code = FINA) ?Left?Ventricle: No regional wall motion abnormalities. Normal systolic function with a visually estimated EF of 65 - 70%. There is impaired relaxation. ?Right?Ventricle: Right ventricle is normal in size and function. ?Left?Atrium: Left atrium is moderately dilated. [facility] GLUCOSE (AUTOMATED)2021-12-10 16:49:01 Test Item Value Reference Range Interpretation Comments POCT GLU (test code = 4029400948) 173 mg/dL 70-110 H Lab Interpretation (test code = Abnormal 61956-6) [facility] GLUCOSE (AUTOMATED)2021-12-10 14:20:52 Test Item Value Reference Range Interpretation Comments POCT GLU (test code = 4913537546) 147 mg/dL 70-110 H Lab Interpretation (test code = Abnormal 50682-5) [facility] GLUCOSE (AUTOMATED)2021-12-10 12:57:11 Test Item Value Reference Range Interpretation Comments POCT GLU (test code = 3537737999) 123 mg/dL 70-110 H Lab Interpretation (test code = Abnormal 07366-2) [facility] WITH [id number] 10:54:10 Test Item Value Reference Range Interpretation Comments WBC (test code = See_Comment [Automated 6690-2) message] The sy stem which generated this result transmitted reference range : 4.30 - 11.10 10*3/?L. The reference range was not used to interpret this result as normal/abnormal . RBC (test code = See_Comment L [Automated 839-8) message] The sy stem which generated this [...] RDW-SD (test code = 45.3 fL 39.0-49.9 48581-3) RDW-CV (test code = 14.1 % 12.0-15.5 788-0) PLT (test code = See_Comment L [Automated 777-3) message] The sy stem which generated this result transmitted reference range : 166 - 358 10*3/ ?L. The reference r willem was not used to interpret this result as normal/abnormal . MPV (test code = Not Measure d 89966-4) IPF % (test code = 18.6 % 1.3-7.7 H Platelet count 6384776754) measured by fluorescence method. NRBC/100 WBC (test See_Comment [Automat ed code = 3370001483) message] The system which generated this result transmitted reference range : 0.0 - 10.0 /100 WBCs. The refer ence range was not u sed to interpret th is result as normal/abnormal . NRBC x10^3 (test code See_Comment [Auto mated = 3069082558) message] The s ystem which generated this result transmitted reference range : 10*3/?L. The reference range was not used to interpret this result as normal/abnormal . SEG % (test code = 30 % 33-76 L 95345-4) BAND % (test code = 47 % 0-1 H 72144-9) META % (test code = 4 % See_Comment H [Automa allison 85122-0) message] The sy stem which generated this result transmitted reference range : <=0. The refere nce range was not u sed to interpret th is result as normal/abnormal . MYELO % (test code = 4 % See_Comment H [Autom ated 90975-1) message] The sy stem which generated this result transmitted reference range : <=0. The refere nce range was not u sed to interpret th is result as normal/abnormal . LYMPH % (test code = 7 % 14-54 L 54993-3) REACT LYMPH % (test 2 % code = 2049327806) MONO % (test code = 4 % 0-4 81131-2) EOS % (test code = 2 % 0-3 92904-2) ANC (test code = 3.34 10*3/uL 1.88-7.09 753-4) DOHLE BODIES (test Present A code = 7792-5) TOXIC CHANGES (test Present A code = 803-7) Lab Interpretation Abnormal (test code = 27259-0) [facility] PasoHEPATIC FUNCTION PANEL (40128) (ALB,T.PRO,BILI T,BU/BC,ALT,AST,ALK PHOS)2021-12-10 10:18:06 Test Item Value Reference Range Interpretation Comments TOTAL BILI (test code = 3751767969) 0.5 mg/dL 0.1-1.1 BILI UNCON (test code = 5753313751) 0.2 mg/dL 0.1-1.1 BILI CONJ (test code = 4953459239) 0.0 mg/dL 0.0-0.3 T PROTEIN (test code = 1010500670) 5.2 g/dL 6.3-8.2 L ALBUMIN (test code = 8730482091) 2.1 g/dL 3.5-5.0 L ALK PHOS (test code = 8048058551) 114 U/L 34-122 ALTv (test code = 1742-6) 22 U/L 5-35 AST(SGOT) (test code = 1470100358) 56 U/L 13-40 H Lab Interpretation (test code = Abnormal 02465-5) [facility] Paso[facility] METABOLIC PANEL (NA, K, CL, CO2, GLUCOSE, BUN, CREATININE, CA)2021-12-10 10:17:46 Test Item Value Reference Range Interpretation Comments NA (test code = 132 mmol/L 135-145 L 8358719288) K (test code = 4.2 mmol/L 3.5-5.0 5483702877) CL (test code = 106 mmol/L 98-108 8067007882) CO2 TOTAL (test code = 19 mmol/L 23-31 L 8877884450) AGAP (test code = 2-16 6880367924) BUN (test code = 48 mg/dL 7-23 H 1812884421) GLUCOSE (test code = 102 mg/dL 70-110 8618256268) CREATININE (test code = 2.53 mg/dL 0.50-1.04 H 9900271537) CALCIUM (test code = 6.2 mg/dL 8.6-10.6 L 8686158365) eGFR (test code = mL/min/1.73m2 7411219390) FINA (test code = FINA) Association of [...] tests). Lab Interpretation Abnormal (test code = 80868-4) [facility] 10:17:46 Test Item Value Reference Range Interpretation Comments MAGNESIUM (test code = 8479086559) 2.2 mg/dL 1.7-2.4 Lab Interpretation (test code = Normal 77695-2) [facility]IONIZED [id number] 10:08:44 Test Item Value Reference Range Interpretation Comments IONIZED CA (test code = 3.90 mg/dL 4.50-5.30 L 0452716904) PH SERUM (test code = 0705415705) 7.35-7.45 L Lab Interpretation (test code = Abnormal 89104-1) [facility] PasoLaco[facility] Acid Whole [id number] 09:34:40 Test Item Value Reference Range Interpretation Comments LACTIC ACID (test code = 2.00 mmol/L 0.50-2.20 6720270406) Lab Interpretation (test code = Normal 69587-1) [facility] GLUCOSE (AUTOMATED)2021-12-10 06:46:49 Test Item Value Reference Range Interpretation Comments POCT GLU (test code = 4525147093) 89 mg/dL 70-110 Lab Interpretation (test code = Normal 77917-5) [facility] GLUCOSE (AUTOMATED)2021-12-10 04:17:39 Test Item Value Reference Range Interpretation Comments POCT GLU (test code = 1950593402) 73 mg/dL 70-110 Lab Interpretation (test code = Normal 19430-4) [facility] GLUCOSE (AUTOMATED)2021-12-10 02:04:59 Test Item Value Reference Range Interpretation Comments POCT GLU (test code = 3204940575) 92 mg/dL 70-110 Lab Interpretation (test code = Normal 26068-5) [facility] 20 + Lactic [id number] 23:44:18 Test Item Value Reference Range Interpretation Comments PH (test code = 2) 7.35-7.45 PCO2 (test code = See_Comment L [Automate d 5865713716) message] The sy stem which generated this result transmitted reference range : 35 - 45 mmHg. The reference range was not used to interpret this result as normal/abnormal . PO2 (test code = See_Comment L [Automated 2141426659) message] The sy stem which generated this result transmitted reference range : 80 - 100 mmHg. The reference range was not used to interpret this result as normal/abnormal . HCO3 (test code = See_Comment L [Automate d 1208299543) message] The sy stem which generated this result transmitted reference range : 22 - 26 mEq/L. The reference range was not used to interpret this result as normal/abnormal . BE (test code = See_Comment L [Automated 6024879568) message] The sy stem which generated this result transmitted reference range : -3.0 - 3.0 mEq/ L. The reference r willem was not used to interpret this result as normal/abnormal . THB (test code = 8.5 g/dL 12.0-16.0 L 3258584319) %O2HB (test code = 91.2 % 94.0-99.0 L 3166724835) %COHB ART (test code = 0.0 % 0.0-1.5 9890087999) %METHB ART (test code = 0.4 % 0.4-1.5 2286108048) VOL%O2 ART (test code = 11.0 % 15.0-23.0 L 3507627732) NA (test code = 131 mmol/L 135-145 L 2018194669) K+ (test code = 4.0 mmol/L 3.5-5.0 5930785768) AC CA IONZ (test code = 3.80 mg/dL 4.50-5.30 L 6173778809) GLUCOSE (test code = 128 mg/dL 70-110 H 9270102635) LACTIC ACID (test code 2.20 mmol/L 0.50-2.20 = 1231942002) Lab Interpretation Abnormal (test code = 16112-2) [facility] GLUCOSE (AUTOMATED)2021-12-09 23:39:26 Test Item Value Reference Range Interpretation Comments POCT GLU (test code = 8984500159) 141 mg/dL 70-110 H Lab Interpretation (test code = Abnormal 36152-0) [facility] GLUCOSE (AUTOMATED)2021-12-09 21:17:09 Test Item Value Reference Range Interpretation Comments POCT GLU (test code = 4405718470) 160 mg/dL 70-110 H Lab Interpretation (test code = Abnormal 96146-7) [facility] GLUCOSE (AUTOMATED)2021-12-09 19:01:44 Test Item Value Reference Range Interpretation Comments POCT GLU (test code = 3352889146) 169 mg/dL 70-110 H Lab Interpretation (test code = Abnormal 79916-8) [facility] GLUCOSE (AUTOMATED)2021-12-09 16:53:55 Test Item Value Reference Range Interpretation Comments POCT GLU (test code = 5076668914) 171 mg/dL 70-110 H Lab Interpretation (test code = Abnormal 04885-7) [facility] GLUCOSE (AUTOMATED)2021-12-09 13:21:51 Test Item Value Reference Range Interpretation Comments POCT GLU (test code = 6320526271) 178 mg/dL 70-110 H Lab Interpretation (test code = Abnormal 45970-4) [facility]2021-12-09 10:42:59 Test Item Value Reference Range Interpretation Comments POCT GLU (test code = 8622195140) 177 mg/dL 70-110 H Lab Interpretation (test code = Abnormal 16328-0) [facility] WITH [id number] 10:41:39 Test Item Value Reference Range Interpretation [...] RDW-SD (test code = 44.7 fL 39.0-49.9 29290-8) RDW-CV (test code = 13.7 % 12.0-15.5 788-0) PLT (test code = See_Comment LL [Automated 777-3) message] The sy stem which generated this result transmitted reference range : 166 - 358 10*3/ ?L. The reference r willem was not used to interpret this result as normal/abnormal . MPV (test code = Not Measure d 98446-8) IPF % (test code = 23.6 % 1.3-7.7 H Platelet count 7515524640) measured by fluorescence method. NRBC/100 WBC (test See_Comment [Automat ed code = 5334956354) message] The system which generated this result transmitted reference range : 0.0 - 10.0 /100 WBCs. The refer ence range was not u sed to interpret th is result as normal/abnormal . NRBC x10^3 (test code See_Comment [Auto mated = 0261505059) message] The s ystem which generated this result transmitted reference range : 10*3/?L. The reference range was not used to interpret this result as normal/abnormal . SEG % (test code = 16 % 33-76 L 40543-3) BAND % (test code = 14 % 0-1 H 13423-3) META % (test code = 2 % See_Comment H [Automa alliosn 92093-0) message] The sy stem which generated this result transmitted reference range : <=0. The refere nce range was not u sed to interpret th is result as normal/abnormal . MYELO % (test code = 2 % See_Comment H [Autom ated 30510-2) message] The sy stem which generated this result transmitted reference range : <=0. The refere nce range was not u sed to interpret th is result as normal/abnormal . LYMPH % (test code = 47 % 14-54 28883-2) MONO % (test code = 12 % 0-4 H 44561-4) EOS % (test code = 6 % 0-3 H 45838-1) ANC (test code = 0.38 10*3/uL 1.88-7.09 L 753-4) TOXIC CHANGES (test Present A code = 803-7) Lab Interpretation Abnormal (test code = 41808-1) [facility] (NA, K, CL, CO2, GLUCOSE, BUN, CREATININE, CA)2021-12-09 10:03:04 Test Item Value Reference Range Interpretation Comments NA (test code = 134 mmol/L 135-145 L 2585818829) K (test code = 4.0 mmol/L 3.5-5.0 7646674247) CL (test code = 108 mmol/L 98-108 9055569915) CO2 TOTAL (test code = 20 mmol/L 23-31 L 1205957460) AGAP (test code = 2-16 7294945955) BUN (test code = 41 mg/dL 7-23 H 2555564423) GLUCOSE (test code = 170 mg/dL 70-110 H 0082294763) CREATININE (test code = 2.07 mg/dL 0.50-1.04 H 2932792001) CALCIUM (test code = 5.9 mg/dL 8.6-10.6 LL 2545754013) eGFR (test code = mL/min/1.73m2 0944862790) FINA (test code = FINA) Association of [...] tests). Lab Interpretation Abnormal (test code = 21090-6) [facility]2022-[facility]-30 09:56:51 Test Item Value Reference Range Interpretation Comments MAGNESIUM (test code = 7493763932) 2.0 mg/dL 1.7-2.4 Lab Interpretation (test code = Normal 55306-6) [facility] GLUCOSE (AUTOMATED)2021-12-09 06:58:38 Test Item Value Reference Range Interpretation Comments POCT GLU (test code = 9122520276) 170 mg/dL 70-110 H Lab Interpretation (test code = Abnormal 71534-2) [facility] GLUCOSE (AUTOMATED)2021-12-09 04:01:33 Test Item Value Reference Range Interpretation Comments POCT GLU (test code = 2936156236) 178 mg/dL 70-110 H Lab Interpretation (test code = Abnormal 01999-1) [facility] GLUCOSE (AUTOMATED)2021-12-09 00:51:45 Test Item Value Reference Range Interpretation Comments POCT GLU (test code = 5331088535) 146 mg/dL 70-110 H Lab Interpretation (test code = Abnormal 40354-7) [facility] WITH [id number] 22:08:54 Test Item Value Reference Range Interpretation [...] RDW-SD (test code = 43.0 fL 39.0-49.9 71292-3) RDW-CV (test code = 13.6 % 12.0-15.5 788-0) PLT (test code = See_Comment LL [Automated 777-3) message] The sy stem which generated this result transmitted reference range : 166 - 358 10*3/ ?L. The reference r willem was not used to interpret this result as normal/abnormal . MPV (test code = Not Measure d 14864-4) IPF % (test code = 28.6 % 1.3-7.7 H The IPF v alue may 0781502210) not be reliable when the patien t's platelet count is less than 10 x 10*3/uL due to the higher imprecis ion of the IPF at l ow counts. Platele t count measured by fluorescence method. NRBC/100 WBC (test See_Comment [Automat ed code = 2614639432) message] The system which generated this result transmitted reference range : 0.0 - 10.0 /100 WBCs. The refer ence range was not u sed to interpret th is result as normal/abnormal . NRBC x10^3 (test code See_Comment [Auto mated = 0540183990) message] The s ystem which generated this result transmitted reference range : 10*3/?L. The reference range was not used to interpret this result as normal/abnormal . GRAN MAT (NEUT) % 32.5 % (test code = 770-8) IMM GRAN % (test code 2.50 % = 5446816694) LYMPH % (test code = 32.5 % 736-9) MONO % (test code = 20.0 % 5905-5) EOS % (test code = 12.5 % 713-8) BASO % (test code = 0.0 % 706-2) GRAN MAT x10^3(ANC) 0.13 10*3/uL 1.88-7.09 L (test code = 1416811842) IMM GRAN x10^3 (test <0.03 0.00-0.06 code = 5895892234) LYMPH x10^3 (test code 0.13 10*3/uL 1.32-3.29 L = 731-0) MONO x10^3 (test code 0.08 10*3/uL 0.33-0.92 L = 742-7) EOS x10^3 (test code = 0.05 10*3/uL 0.03-0.39 711-2) BASO x10^3 (test code <0.03 0.01-0.07 = 704-7) Lab Interpretation Abnormal (test code = 17816-4) [facility] GLUCOSE (AUTOMATED)2021-12-08 21:28:54 Test Item Value Reference Range Interpretation Comments POCT GLU (test code = 1882250202) 293 mg/dL 70-110 H Lab Interpretation (test code = Abnormal 89894-4) [facility] GLUCOSE (AUTOMATED)2021-12-08 19:09:43 Test Item Value Reference Range Interpretation Comments POCT GLU (test code = 1392934576) 306 mg/dL 70-110 H Lab Interpretation (test code = Abnormal 53702-4) [facility] Platelets (in units): 1 Units~Indication: 1) Platelets < 10,000 for bleeding prophylaxis (per hematology); Special Requirements: Leukoreduced (HLA matched)2021-12-08 19:08:27 Test Item Value Reference Range Interpretation Comments Unit Blood Type (test A Pos code = 4410) ISBT Blood Type Code (test code = 700364) Unit Number (test code [id number] = 4411) Blood Expiration Date & Time (test code = 487460) Status Information Issued (test code = 4412) Product Identification Platelets (test code = 4413) Product Code (test [id number] Performed at [facility] code = 4414) Laboratory Services - [facility] Blood [id number] [place] [id number] Free: [phone] A No. [id number] [facility] GLUCOSE (AUTOMATED)2021-12-08 17:21:14 Test Item Value Reference Range Interpretation Comments POCT GLU (test code = 5777821328) 328 mg/dL 70-110 H Lab Interpretation (test code = Abnormal 79477-7) [facility] WITH [id number] 14:17:38 Test Item Value Reference Range Interpretation [...] RDW-SD (test code = 45.2 fL 39.0-49.9 69912-0) RDW-CV (test code = 13.8 % 12.0-15.5 788-0) PLT (test code = See_Comment LL [Automated 777-3) message] The sy stem which generated this result transmitted reference range : 166 - 358 10*3/ ?L. The reference r willem was not used to interpret this result as normal/abnormal . MPV (test code = Not Measure d 33930-6) IPF % (test code = 22.1 % 1.3-7.7 H The IPF v alue may 2932411743) not be reliable when the patien t's platelet count is less than 10 x 10*3/uL due to the higher imprecis ion of the IPF at l ow counts. Platele t count measured by fluorescence method. NRBC/100 WBC (test See_Comment [Automat ed code = 6322208993) message] The system which generated this result transmitted reference range : 0.0 - 10.0 /100 WBCs. The refer ence range was not u sed to interpret th is result as normal/abnormal . NRBC x10^3 (test code See_Comment [Auto mated = 2180572293) message] The s ystem which generated this result transmitted reference range : 10*3/?L. The reference range was not used to interpret this result as normal/abnormal . SEG % (test code = 2 % 33-76 L 92542-9) BAND % (test code = 2 % 0-1 H 00918-1) META % (test code = 1 % See_Comment H [Automa allison 58960-3) message] The sy stem which generated this result transmitted reference range : <=0. The refere nce range was not u sed to interpret th is result as normal/abnormal . MYELO % (test code = 2 % See_Comment H [Autom ated 40596-4) message] The sy stem which generated this result transmitted reference range : <=0. The refere nce range was not u sed to interpret th is result as normal/abnormal . LYMPH % (test code = 64 % 14-54 H 15606-5) REACT LYMPH % (test 3 % code = 7785051731) MONO % (test code = 14 % 0-4 H 17502-7) EOS % (test code = 12 % 0-3 H 99055-7) ANC (test code = 0.02 10*3/uL 1.88-7.09 L 753-4) Lab Interpretation Abnormal (test code = 06569-3) [facility]2021-12-08 14:07:32 Test Item Value Reference Range Interpretation Comments POCT GLU (test code = 4114383468) 323 mg/dL 70-110 H Lab Interpretation (test code = Abnormal 03387-1) [facility] METABOLIC PANEL (NA, K, CL, CO2, GLUCOSE, BUN, CREATININE, CA)2021-12-08 12:17:24 Test Item Value Reference Range Interpretation Comments NA (test code = 138 mmol/L 135-145 4259529792) K (test code = 4.4 mmol/L 3.5-5.0 8558841167) CL (test code = 111 mmol/L 98-108 H 0684007693) CO2 TOTAL (test code = 20 mmol/L 23-31 L 9116519285) AGAP (test code = 2-16 9083138255) BUN (test code = 41 mg/dL 7-23 H 3676286350) GLUCOSE (test code = 265 mg/dL 70-110 H 7184414710) CREATININE (test code = 1.96 mg/dL 0.50-1.04 H 2016028429) CALCIUM (test code = 6.0 mg/dL 8.6-10.6 L 1466794315) eGFR (test code = mL/min/1.73m2 8294928047) FINA (test code = FINA) Association of [...] tests). Lab Interpretation Abnormal (test code = 64120-0) [facility]20[facility]29 12:17:24 Test Item Value Reference Range Interpretation Comments MAGNESIUM (test code = 1545253594) 2.0 mg/dL 1.7-2.4 Lab Interpretation (test code = Normal 21701-0) [facility]2021-12-08 11:33:36 Test Item Value Reference Range Interpretation Comments POCT GLU (test code = 3289548434) 300 mg/dL 70-110 H Lab Interpretation (test code = Abnormal 78719-4) [facility] PasoPrepare Platelets (in units)~2021-12-08 08:28:56 Test Item Value Reference Range Interpretation Comments Unit Blood Type (test B Neg code = 4410) ISBT Blood Type Code (test code = 892683) Unit Number (test code [id number] = 4411) Blood Expiration Date & Time (test code = 055163) Status Information Issued (test code = 4412) Product Identification Platelets (test code = 4413) Product Code (test [id number] Performed at [facility] code = 4414) Laboratory Services - [facility] Blood [id number] [place] [id number] Free: [phone] A No. [id number] [facility]2021-12-08 08:24:56 Test Item Value Reference Range Interpretation Comments POCT GLU (test code = 1114832069) 238 mg/dL 70-110 H Lab Interpretation (test code = Abnormal 56294-9) [facility] WITH [id number] 05:54:34 Test Item Value Reference Range Interpretation [...] RDW-SD (test code = 43.7 fL 39.0-49.9 06198-4) RDW-CV (test code = 13.6 % 12.0-15.5 788-0) PLT (test code = See_Comment LL [Automated 777-3) message] The system which generated this result transmit allison reference range : 166 - 358 10*3/ ?L. The reference range was not u sed to interpret th is result as normal/abnormal . MPV (test code = Not Measure d 89841-1) IPF % (test code = 17.6 % 1.3-7.7 H The IPF v alue may 0778328819) not be reliable when the patien t's platelet count is less than 10 x 10*3/uL due to the higher imprecis ion of the IPF at l ow counts. Platele t count measured by fluorescence method. NRBC/100 WBC (test See_Comment [Automat ed code = 8552974467) message] The system which generated this result transmit allison reference range : 0.0 - 10.0 /100 WBCs. The reference range was not used to interpret this result as normal/abnormal . NRBC x10^3 (test code <0.01 See_Comment [Auto mated = 3903709455) message] The system which generated this result transmit allison reference range : 10*3/?L. The reference range was not used to interpret this result as normal/abnormal . GRAN MAT (NEUT) % 0.0 % (test code = 770-8) IMM GRAN % (test code 7.20 % = 5707410200) LYMPH % (test code = 46.4 % 736-9) MONO % (test code = 32.1 % 5905-5) EOS % (test code = 14.3 % 713-8) BASO % (test code = 0.0 % 706-2) GRAN MAT x10^3(ANC) <0.03 1.88-7.09 L (test code = 4444259724) IMM GRAN x10^3 (test <0.03 0.00-0.06 code = 9222213427) LYMPH x10^3 (test 0.13 10*3/uL 1.32-3.29 L code = 731-0) MONO x10^3 (test code 0.09 10*3/uL 0.33-0.92 L = 742-7) EOS x10^3 (test code 0.04 10*3/uL 0.03-0.39 = 711-2) BASO x10^3 (test code <0.03 0.01-0.07 = 704-7) FINA (test code = FINA) Qns for manual diff/only 1 lymphyces on the smear/wrm Lab Interpretation Abnormal (test code = 87698-0) [facility] METABOLIC PANEL (NA, K, CL, CO2, GLUCOSE, BUN, CREATININE, CA)2021-12-08 05:16:37 Test Item Value Reference Range Interpretation Comments NA (test code = 138 mmol/L 135-145 7373324371) K (test code = 4.1 mmol/L 3.5-5.0 6190734440) CL (test code = 112 mmol/L 98-108 H 5502519225) CO2 TOTAL (test code = 19 mmol/L 23-31 L 1498194899) AGAP (test code = 2-16 7648507886) BUN (test code = 41 mg/dL 7-23 H 2801286142) GLUCOSE (test code = 209 mg/dL 70-110 H 5354235472) CREATININE (test code = 1.89 mg/dL 0.50-1.04 H 7030298450) CALCIUM (test code = 6.0 mg/dL 8.6-10.6 L 0053364140) eGFR (test code = mL/min/1.73m2 7742287149) FINA (test code = FINA) Association of [...] tests). Lab Interpretation Abnormal (test code = 46049-0) [facility] GLUCOSE (AUTOMATED)2021-12-08 03:56:37 Test Item Value Reference Range Interpretation Comments POCT GLU (test code = 3324996736) 213 mg/dL 70-110 H Lab Interpretation (test code = Abnormal 53555-4) [facility] GLUCOSE (AUTOMATED)2021-12-08 01:26:12 Test Item Value Reference Range Interpretation Comments POCT GLU (test code = 8515338530) 222 mg/dL 70-110 H Lab Interpretation (test code = Abnormal 23589-1) [facility] GLUCOSE (AUTOMATED)2021-12-07 21:55:43 Test Item Value Reference Range Interpretation Comments POCT GLU (test code = 2235171842) 187 mg/dL 70-110 H Lab Interpretation (test code = Abnormal 27075-7) [facility] WITH [id number] 20:52:51 Test Item Value Reference Range Interpretation [...] RDW-SD (test code = 43.2 fL 39.0-49.9 72318-6) RDW-CV (test code = 13.6 % 12.0-15.5 788-0) PLT (test code = See_Comment LL [Automated 777-3) message] The sy stem which generated this result transmitted reference range : 166 - 358 10*3/ ?L. The reference r willem was not used to interpret this result as normal/abnormal . MPV (test code = Not Measure d 14875-4) IPF % (test code = 8.1 % 1.3-7.7 H The IPF v alue may 8165880202) not be reliable when the patien t's platelet count is less than 10 x 10*3/uL due to the higher imprecis ion of the IPF at l ow counts. Platele t count measured by fluorescence method. NRBC/100 WBC (test See_Comment [Automat ed code = 2876888913) message] The system which generated this result transmitted reference range : 0.0 - 10.0 /100 WBCs. The refer ence range was not u sed to interpret th is result as normal/abnormal . NRBC x10^3 (test code <0.01 See_Comment [Auto mated = 2220454856) message] The s ystem which generated this result transmitted reference range : 10*3/?L. The reference range was not used to interpret this result as normal/abnormal . GRAN MAT (NEUT) % 8.0 % (test code = 770-8) IMM GRAN % (test code 0.00 % = 9231919428) LYMPH % (test code = 48.0 % 736-9) MONO % (test code = 12.0 % 5905-5) EOS % (test code = 32.0 % 713-8) BASO % (test code = 0.0 % 706-2) GRAN MAT x10^3(ANC) <0.03 1.88-7.09 L (test code = 1956698996) IMM GRAN x10^3 (test <0.03 0.00-0.06 code = 8961423194) LYMPH x10^3 (test code 0.12 10*3/uL 1.32-3.29 L = 731-0) MONO x10^3 (test code 0.03 10*3/uL 0.33-0.92 L = 742-7) EOS x10^3 (test code = 0.08 10*3/uL 0.03-0.39 711-2) BASO x10^3 (test code <0.03 0.01-0.07 = 704-7) Lab Interpretation Abnormal (test code = 58319-9) [facility] - Draw vanc level 23 hours post [id number] 19:36:49 Test Item Value Reference Range Interpretation Comments VANCO TROUGH (test code 11.2 ug/mL 10.0-20.0 = 6405813148) FINA (test code = FINA) Toxic Range: ?>20 ug/mL 15-20 ug/mL is recommended for severe infection or when Vancomycin WILSON is greater than or equal to 2. Lab Interpretation (test Normal code = 62736-7) [facility]2021-12-07 19:19:35 Test Item Value Reference Range Interpretation Comments POCT GLU (test code = 7509643034) 238 mg/dL 70-110 H Lab Interpretation (test code = Abnormal 46051-0) [facility] WITH [id number] 16:56:47 Test Item Value Reference Range Interpretation Comments WBC (test code = See_Comment LL [Automated 8125-2) message] The sy stem which generated this result transmitted reference range : 4.30 - 11.10 10*3/?L. The reference range was not used to interpret this result as normal/abnormal . RBC (test code = See_Comment L [Automated 835-8) message] The sy stem which generated this [...] RDW-SD (test code = 44.3 fL 39.0-49.9 26598-8) RDW-CV (test code = 13.5 % 12.0-15.5 788-0) PLT (test code = See_Comment LL [Automated 777-3) message] The sy stem which generated this result transmitted reference range : 166 - 358 10*3/ ?L. The reference r willem was not used to interpret this result as normal/abnormal . MPV (test code = 12.1 fL 9.5-12.9 09866-7) IPF % (test code = 2.3 % 1.3-7.7 Platelet count 9132650560) measured by fluorescence method. NRBC/100 WBC (test See_Comment [Automat ed code = 3515254886) message] The system which generated this result transmitted reference range : 0.0 - 10.0 /100 WBCs. The refer ence range was not u sed to interpret th is result as normal/abnormal . NRBC x10^3 (test code <0.01 See_Comment [Auto mated = 9150310079) message] The s ystem which generated this result transmitted reference range : 10*3/?L. The reference range was not used to interpret this result as normal/abnormal . SEG % (test code = 1 % 33-76 L 04559-5) LYMPH % (test code = 49 % 14-54 64483-3) REACT LYMPH % (test 2 % code = 9318280185) MONO % (test code = 4 % 0-4 37056-7) EOS % (test code = 44 % 0-3 H 14804-2) ANC (test code = 0.00 10*3/uL 1.88-7.09 L 753-4) Lab Interpretation Abnormal (test code = 68302-7) [facility] GLUCOSE (AUTOMATED)2021-12-07 15:58:35 Test Item Value Reference Range Interpretation Comments POCT GLU (test code = 0185486303) 257 mg/dL 70-110 H Lab Interpretation (test code = Abnormal 33006-7) [facility] METABOLIC PANEL (NA, K, CL, CO2, GLUCOSE, BUN, CREATININE, CA)2021-12-07 14:49:33 Test Item Value Reference Range Interpretation Comments NA (test code = 135 mmol/L 135-145 6340777624) K (test code = 3.6 mmol/L 3.5-5.0 1391814998) CL (test code = 111 mmol/L 98-108 H 5327902521) CO2 TOTAL (test code = 16 mmol/L 23-31 L 1558081367) AGAP (test code = 2-16 5982728832) BUN (test code = 49 mg/dL 7-23 H 5733819368) GLUCOSE (test code = 242 mg/dL 70-110 H 2584480781) CREATININE (test code = 1.82 mg/dL 0.50-1.04 H 2052395179) CALCIUM (test code = 6.0 mg/dL 8.6-10.6 L 3742543577) eGFR (test code = mL/min/1.73m2 1956282604) FINA (test code = FINA) Association of [...] tests). Lab Interpretation Abnormal (test code = 39881-9) [facility] 14:49:33 Test Item Value Reference Range Interpretation Comments MAGNESIUM (test code = 0889468989) 2.0 mg/dL 1.7-2.4 Lab Interpretation (test code = Normal 68449-9) [facility]2022-[facility]-28 13:35:43 Test Item Value Reference Range Interpretation Comments Fibrinogen (test code = 3940552246) 646 mg/dL 167-453 H Lab Interpretation (test code = Abnormal 45794-9) [facility]AUT[facility]ATED)2021-12-07 12:44:58 Test Item Value Reference Range Interpretation Comments POCT GLU (test code = 5679787635) 231 mg/dL 70-110 H Lab Interpretation (test code = Abnormal 76941-4) [facility] Platelets (in units): 1 Units~Indication: 1) Platelets < 10,000 for bleeding ghbwviiyifn3246-72-01 11:30:59 Test Item Value Reference Range Interpretation Comments Unit Blood Type (test O Pos code = 4410) ISBT Blood Type Code (test code = 242807) Unit Number (test code [id number] = 4411) Blood Expiration Date & Time (test code = 856123) Status Information Issued (test code = 4412) Product Identification Platelets (test code = 4413) Product Code (test C3523G43 Performed at [facility] code = 4414) Laboratory Services - [facility] Blood Yoat5564 [facility] [address]Eerr Free: [phone] A No. [id number] [facility] Packed RBC (in units), 1 Units 2021-12-07 07:24:01 Test Item Value Reference Range Interpretation Comments Cross Match Result Compatible (test code = 4409) ISBT Blood Type Code (test code = 663236) Unit Blood Type (test O Pos code = 4410) Unit Number (test [id number] code = 4411) Blood Expiration Date & Time (test code = 765846) Status Information Issued (test code = 4412) Product Red Blood Cells Identification (test code = 4413) Product Code (test U7783N44 Performed at [facility] code = 4414) Laboratory Services - [facility] Blood [address] [place] [address]Weac Free: [phone] A No. [id number] [facility] WITHOUT [id number] 04:58:12 Test Item Value Reference Range Interpretation Comments WBC (test code = See_Comment LL [Automated message] 6690-2) The system [employer] generated this result transmitted ref erence range: 4.30 - 1 1.10 10*3/?L. The reference range was not used to int erpret this result as normal/abnormal . RBC (test code = 789-8) See_Comment L [Au tomated message] The system [employer] generated this result transmitted ref erence range: [...] See_Comment LL [Au tomated message] The system [employer] generated this result transmitted ref erence range: 166 - 35 8 10*3/?L. The reference range was not used to int erpret this result as normal/abnormal . MPV (test code = 11.1 fL 9.5-12.9 73864-1) RDW-CV (test code = 13.6 % 12.0-15.5 788-0) RDW-SD (test code = 43.3 fL 39.0-49.9 83110-5) NRBC x10^3 (test code = <0.01 See_Comment [Au tomated message] 1796722020) The system [employer] generated this result transmitted ref erence range: 10*3/?L. The reference range was not used to int erpret this result as normal/abnormal . NRBC/100 WBC (test code See_Comment [Au tomated message] = 9178753943) The system [employer] generated this result transmitted ref erence range: 0.0 - 10 .0 /100 WBCs. The reference range was not used to int erpret this result as normal/abnormal . IPF % (test code = 4.9 % 1.3-7.7 The IPF v alue may not 3033919725) be reliable whe n the patient's plate let count is less t ley 10 x 10*3/uL due t o the higher imprecis ion of the IPF at low counts. Platele t count measured by fluorescence me thod. Lab Interpretation Abnormal (test code = 71609-5) [facility] PasoIONIZED [id number] 04:52:10 Test Item Value Reference Range Interpretation Comments IONIZED CA (test code = 3.30 mg/dL 4.50-5.30 L 0925721124) PH SERUM (test code = 7286509409) 7.35-7.45 Lab Interpretation (test code = Abnormal 76513-3) [facility] METABOLIC PANEL (NA, K, CL, CO2, GLUCOSE, BUN, CREATININE, CA)2021-12-07 04:31:21 Test Item Value Reference Range Interpretation Comments NA (test code = 136 mmol/L 135-145 4472600832) K (test code = 3.1 mmol/L 3.5-5.0 L 0851553314) CL (test code = 110 mmol/L 98-108 H 3107944347) CO2 TOTAL (test code = 19 mmol/L 23-31 L 1428048197) AGAP (test code = 2-16 2356166311) BUN (test code = 57 mg/dL 7-23 H 9918068540) GLUCOSE (test code = 234 mg/dL 70-110 H 5687647119) CREATININE (test code = 1.78 mg/dL 0.50-1.04 H 2332539430) CALCIUM (test code = 5.4 mg/dL 8.6-10.6 LL 3206254431) eGFR (test code = mL/min/1.73m2 7605079685) FINA (test code = FINA) Association of [...] tests). Lab Interpretation Abnormal (test code = 32658-4) [facility] GLUCOSE (AUTOMATED)2021-12-07 01:21:49 Test Item Value Reference Range Interpretation Comments POCT GLU (test code = 4655508029) 277 mg/dL 70-110 H Lab Interpretation (test code = Abnormal 29103-8) [facility] [id number] 22:51:07 Test Item Value Reference Range Interpretation Comments IONIZED CA (test code = 3.20 mg/dL 4.50-5.30 L 2498887084) PH SERUM (test code = 9512907938) 7.35-7.45 Lab Interpretation (test code = Abnormal 27056-8) [facility]2021-12-06 21:34:52 Test Item Value Reference Range Interpretation Comments POCT GLU (test code = 5560183792) 270 mg/dL 70-110 H Lab Interpretation (test code = Abnormal 96349-9) [facility] PasoCB WITHOUT [id number] 20:54:41 Test Item Value Reference Range Interpretation Comments WBC (test code = 6690-2) See_Comment LL [A utomated message] The system [employer] generated this result transmit allison reference range : 4.30 - 11.10 10*3/?L. The reference range was not used to interpret this result as normal/abnormal . RBC (test code = 789-8) See_Comment L [Au tomated message] The system [employer] generated this result transmit allison reference range [...] See_Comment LL [Au tomated message] The system [employer] generated this result transmit allison reference range : 166 - 358 10*3/?L. The reference range was not used to interpret this result as normal/abnormal . MPV (test code = 11.9 fL 9.5-12.9 49366-5) RDW-CV (test code = 13.4 % 12.0-15.5 788-0) RDW-SD (test code = 42.0 fL 39.0-49.9 43054-9) NRBC x10^3 (test code = <0.01 See_Comment [Au tomated message] 6187449109) The system [employer] generated this result transmit allison reference range : 10*3/?L. The reference range was not used to interpret this result as normal/abnormal . NRBC/100 WBC (test code See_Comment [Au tomated message] = 2207686003) The system [facility] ch generated this result transmit allison reference range : 0.0 - 10.0 /100 WBC s. The reference r willem was not used to interpret this result as normal/abnormal . IPF % (test code = 2841547588) Lab Interpretation (test Abnormal code = 81700-2) [facility] Paso[facility]comycin Trough Level - Draw level 24 hours post [id number] 20:50:18 Test Item Value Reference Range Interpretation Comments VANCO TROUGH (test code 8.3 ug/mL 10.0-20.0 L = 1784316284) FINA (test code = FINA) Toxic Range: ?>20 ug/mL 15-20 ug/mL is recommended for severe infection or when Vancomycin WILSON is greater than or equal to 2. Lab Interpretation (test Abnormal code = 48536-5) [facility] WITH [id number] 17:57:45 Test Item Value Reference Range Interpretation Comments WBC (test code = See_Comment LL [Automated 2890-2) message] The sy stem which generated this result transmitted reference range : 4.30 - 11.10 10*3/?L. The reference range was not used to interpret this result as normal/abnormal . RBC (test code = See_Comment L [Automated 207-8) message] The sy stem which generated this [...] RDW-SD (test code = 43.4 fL 39.0-49.9 99053-5) RDW-CV (test code = 13.2 % 12.0-15.5 788-0) PLT (test code = See_Comment LL [Automated 777-3) message] The sy stem which generated this result transmitted reference range : 166 - 358 10*3/ ?L. The reference r willem was not used to interpret this result as normal/abnormal . MPV (test code = 12.5 fL 9.5-12.9 85781-6) IPF % (test code = 1.2 % 1.3-7.7 L Platelet count 0458358675) measured by fluorescence method. NRBC/100 WBC (test See_Comment [Automat ed code = 4464957950) message] The system which generated this result transmitted reference range : 0.0 - 10.0 /100 WBCs. The refer ence range was not u sed to interpret th is result as normal/abnormal . NRBC x10^3 (test code <0.01 See_Comment [Auto mated = 6976137768) message] The s ystem which generated this result transmitted reference range : 10*3/?L. The reference range was not used to interpret this result as normal/abnormal . LYMPH % (test code = 86 % 14-54 H 37581-5) MONO % (test code = 3 % 0-4 97706-7) EOS % (test code = 11 % 0-3 H 41701-7) ANC (test code = 0.00 10*3/uL 1.88-7.09 L 753-4) Lab Interpretation Abnormal (test code = 04715-6) [facility]2021-12-06 16:07:01 Test Item Value Reference Range Interpretation Comments POCT GLU (test code = 1003057008) 281 mg/dL 70-110 H Lab Interpretation (test code = Abnormal 96529-1) [facility] WITH [id number] 14:39:43 Test Item Value Reference Range Interpretation [...] RDW-SD (test code = 42.9 fL 39.0-49.9 26905-8) RDW-CV (test code = 13.2 % 12.0-15.5 788-0) PLT (test code = See_Comment LL [Automated 777-3) message] The sy stem which generated this result transmitted reference range : 166 - 358 10*3/ ?L. The reference r willem was not used to interpret this result as normal/abnormal . MPV (test code = 12.4 fL 9.5-12.9 82103-2) IPF % (test code = 0.9 % 1.3-7.7 L The IPF v alue may 3693099610) not be reliable when the patien t's platelet count is less than 10 x 10*3/uL due to the higher imprecis ion of the IPF at l ow counts. Platele t count measured by fluorescence method. NRBC/100 WBC (test See_Comment [Automat ed code = 8818450395) message] The system which generated this result transmitted reference range : 0.0 - 10.0 /100 WBCs. The refer ence range was not u sed to interpret th is result as normal/abnormal . NRBC x10^3 (test code See_Comment [Auto mated = 3975585176) message] The s ystem which generated this result transmitted reference range : 10*3/?L. The reference range was not used to interpret this result as normal/abnormal . LYMPH % (test code = 86 % 14-54 H 67632-9) MONO % (test code = 6 % 0-4 H 30411-7) EOS % (test code = 8 % 0-3 H 80118-4) ANC (test code = 0.00 10*3/uL 1.88-7.09 L 753-4) Lab Interpretation Abnormal (test code = 60197-6) [facility] METABOLIC PANEL (NA, K, CL, CO2, GLUCOSE, BUN, CREATININE, CA)2021-12-06 13:30:44 Test Item Value Reference Range Interpretation Comments NA (test code = 133 mmol/L 135-145 L 6934286467) K (test code = 3.3 mmol/L 3.5-5.0 L 7846822872) CL (test code = 109 mmol/L 98-108 H 0495568536) CO2 TOTAL (test code = 17 mmol/L 23-31 L 9174253481) AGAP (test code = 2-16 7739647443) BUN (test code = 62 mg/dL 7-23 H 0448111453) GLUCOSE (test code = 302 mg/dL 70-110 H 5530290372) CREATININE (test code = 1.77 mg/dL 0.50-1.04 H 1129874813) CALCIUM (test code = 5.0 mg/dL 8.6-10.6 LL 3163896260) eGFR (test code = mL/min/1.73m2 6262265150) FINA (test code = FINA) Association of [...] tests). Lab Interpretation Abnormal (test code = 28401-0) [facility]2021-12-06 12:43:19 Test Item Value Reference Range Interpretation Comments POCT GLU (test code = 5789465719) 342 mg/dL 70-110 H Lab Interpretation (test code = Abnormal 20873-5) [facility] - Peripheral Vein # 12:01:19 Test Item Value Reference Range Interpretation Comments Blood Culture-Aerobic No organisms No growth Previo us (test code = 78732-3) isolated prelim inary verified result was Culture In Progress on 12/01/2021 at 10 CDTPrevious preliminary verified result was No growth a t 24 hours on 12/02/2021 at 12 10 CDTPrevious preliminary verified result was No growth a t 48 hours on 12/03/2021 at 12 10 CDTPrevious preliminary verified result was No growth a t 72 hours on 12/04/2021 at 12 10 CDT Blood No organisms No growth Previous Culture-Anaerobic isolated preliminar y (test code = 23934-0) verifi ed result was Culture In Progress on 12/01/2021 at 10 CDTPrevious preliminary verified result was No growth a t 24 hours on 12/02/2021 at 12 10 CDTPrevious preliminary verified result was No growth a t 48 hours on 12/03/2021 at 12 10 CDTPrevious preliminary verified result was No growth a t 72 hours on 12/04/2021 at 07 01 CDT Lab Interpretation Normal (test code = 21593-2) [facility] - Peripheral [id number] 12:01:19 Test Item Value Reference Range Interpretation Comments Blood Culture-Aerobic No organisms No growth Previo us (test code = 08360-1) isolated prelim inary verified result was Culture In Progress on 12/01/2021 at 10 01 CDTPrevious preliminary verified result was No growth a t 24 hours on 12/02/2021 at 07 CDTPrevious preliminary verified result was No growth a t 48 hours on 12/03/2021 at 07 CDTPrevious preliminary verified result was No growth a t 72 hours on 12/04/2021 at 07 CDT Blood No organisms No growth Previous Culture-Anaerobic isolated preliminar y (test code = 11414-9) verifi ed result was Culture In Progress [...] CDT Lab Interpretation Normal (test code = 68560-4) [facility] Paso[facility] Packed RBC (in units), 1 Units 2021-12-06 10:14:34 Test Item Value Reference Range Interpretation Comments Cross Match Result Compatible (test code = 4409) ISBT Blood Type Code (test code = 720789) Unit Blood Type (test O Pos code = 4410) Unit Number (test [id number] code = 4411) Blood Expiration Date & Time (test code = 345421) Status Information Issued (test code = 4412) Product Red Blood Cells Identification (test code = 4413) Product Code (test [id number] Performed at [facility] code = 4414) Laboratory Services - [facility] Blood [address] [place] [address]Wyyg Free: [phone] A No. [id number] [facility] WITH [id number] 07:37:57 Test Item Value Reference Range Interpretation Comments WBC (test code = See_Comment LL [Automated message] 6690-2) The system [employer] generated this result transmitted ref erence range: 4.30 - 1 1.10 10*3/?L. The reference range was not used to int erpret this result as normal/abnormal . RBC (test code = 789-8) See_Comment L [Au tomated message] The system [employer] generated this result transmitted ref erence range: [...] RDW-SD (test code = 43.8 fL 39.0-49.9 79158-8) RDW-CV (test code = 13.6 % 12.0-15.5 788-0) PLT (test code = 777-3) See_Comment LL [Au tomated message] The system [employer] generated this result transmitted ref erence range: 166 - 35 8 10*3/?L. The reference range was not used to int erpret this result as normal/abnormal . MPV (test code = Not Measure d 52737-7) IPF % (test code = 0.8 % 1.3-7.7 L Platelet count 7746189220) measured by fluorescence me thod. NRBC/100 WBC (test code See_Comment [Au tomated message] = 2690577722) The system [facility] generated this result transmitted ref erence range: 0.0 - 10 .0 /100 WBCs. The reference range was not used to int erpret this result as normal/abnormal . NRBC x10^3 (test code = <0.01 See_Comment [Au tomated message] 1138014673) The system [employer] generated this result transmitted ref erence range: 10*3/?L. The reference range was not used to int erpret this result as normal/abnormal . SEG % (test code = 1 % 33-76 L 09120-4) LYMPH % (test code = 82 % 14-54 H 39097-7) MONO % (test code = 2 % 0-4 29115-3) EOS % (test code = 15 % 0-3 H 58750-6) ANC (test code = 753-4) Unab le to calculate due to low whit e count Lab Interpretation Abnormal (test code = 67426-7) [facility]. METABOLIC PANEL (55171)2021-12-06 06:20:44 Test Item Value Reference Range Interpretation Comments NA (test code = 134 mmol/L 135-145 L 1475008453) K (test code = 3.8 mmol/L 3.5-5.0 Slight 8589864938) hemolysis CL (test code = 109 mmol/L 98-108 H 5493811000) CO2 TOTAL (test code 20 mmol/L 23-31 L = 7023486477) AGAP (test code = 2-16 9706908121) BUN (test code = 54 mg/dL 7-23 H Slight 7568179796) hemolysis GLUCOSE (test code = 186 mg/dL 70-110 H 6437288942) CREATININE (test code 1.55 mg/dL 0.50-1.04 H = 5913967190) TOTAL BILI (test code 0.9 mg/dL 0.1-1.1 = 6476006219) CALCIUM (test code = 4.6 mg/dL 8.6-10.6 LL 7557656888) T PROTEIN (test code 4.9 g/dL 6.3-8.2 L = 2509003050) ALBUMIN (test code = 2.1 g/dL 3.5-5.0 L 9987951197) ALK PHOS (test code = 35 U/L 34-122 Slight 0351112221) hemolysis ALTv (test code = 11 U/L 5-35 1742-6) AST(SGOT) (test code 32 U/L 13-40 Slight = 3456273624) hemolysis eGFR (test code = mL/min/1.73m2 5634904419) FINA (test code = FINA) Association of [...] tests). Lab Interpretation Abnormal (test code = 72328-9) [facility]2022-[facility]-27 06:17:34 Test Item Value Reference Range Interpretation Comments MAGNESIUM (test code = 0126809138) 1.9 mg/dL 1.7-2.4 Lab Interpretation (test code = Normal 59885-3) [facility] PasoPROCALCITONIN2022-06-27 04:12:45 Test Item Value Reference Range Interpretation Comments Procalcitonin (test 1.10 ng/mL <0.07 H code = 0859634397) FINA (test code = FINA) INTERPRETATION OF [...] lung abscess/empyema. For further information please refer to:[email or web address] Lab Interpretation Abnormal (test code = 15215-1) [facility] Paso[facility] Platelets (in units): 1 Units~Indication: 1) Platelets < 10,000 for bleeding dhandsbrfik8206-89-82 02:21:17 Test Item Value Reference Range Interpretation Comments Unit Blood Type (test O Pos code = 4410) ISBT Blood Type Code (test code = 163379) Unit Number (test code [id number] = 4411) Blood Expiration Date & Time (test code = 640396) Status Information Issued (test code = 4412) Product Identification Platelets (test code = 4413) Product Code (test [id number] Performed at [facility] code = 4414) Laboratory Services - [facility] Blood Gjfk5274 [facility] [address]Yadq Free: [phone] A No. [id number] [facility] GLUCOSE (AUTOMATED)2021-12-06 01:51:04 Test Item Value Reference Range Interpretation Comments POCT GLU (test code = 2913510811) 176 mg/dL 70-110 H Lab Interpretation (test code = Abnormal 41518-0) [facility] GLUCOSE (AUTOMATED)2021-12-05 22:02:21 Test Item Value Reference Range Interpretation Comments POCT GLU (test code = 2381849773) 130 mg/dL 70-110 H Lab Interpretation (test code = Abnormal 37935-4) [facility] GLUCOSE (AUTOMATED)2021-12-05 17:41:32 Test Item Value Reference Range Interpretation Comments POCT GLU (test code = 4407996316) 178 mg/dL 70-110 H Lab Interpretation (test code = Abnormal 23214-9) [facility] PasoType and Screen - ONCE Vdzjupr5098-03-52 16:45:28 Test Item Value Reference Range Interpretation Comments ABO & RH (test code O Positive Performe d at [facility] = 20) Laboratory Serv ices - [facility] Blood Bank[address], [place] [address]Qnbr Free: [phone] A No. [id number] IAT (test code = Negative Performed a t [facility] 1185) Laboratory Serv [facility] Blood Bank[address] [place] [address]Gzey Free: [phone] A No. [id number] [facility]2021-12-05 12:44:52 Test Item Value Reference Range Interpretation Comments POCT GLU (test code = 2495756833) 156 mg/dL 70-110 H Lab Interpretation (test code = Abnormal 52236-5) [facility] WITH [id number] 11:46:34 Test Item Value Reference Range Interpretation [...] RDW-SD (test code = 42.5 fL 39.0-49.9 66468-0) RDW-CV (test code = 13.1 % 12.0-15.5 788-0) PLT (test code = See_Comment LL [Automated 777-3) message] The sy stem which generated this result transmitted reference range : 166 - 358 10*3/ ?L. The reference r willem was not used to interpret this result as normal/abnormal . MPV (test code = 9.9 fL 9.5-12.9 78962-4) IPF % (test code = 0.8 % 1.3-7.7 L The IPF v alue may 0015407549) not be reliable when the patien t's platelet count is less than 10 x 10*3/uL due to the higher imprecis ion of the IPF at l ow counts. Platele t count measured by fluorescence method. NRBC/100 WBC (test See_Comment [Automat ed code = 3120621749) message] The system which generated this result transmitted reference range : 0.0 - 10.0 /100 WBCs. The refer ence range was not u sed to interpret th is result as normal/abnormal . NRBC x10^3 (test code <0.01 See_Comment [Auto mated = 7538127312) message] The s ystem which generated this result transmitted reference range : 10*3/?L. The reference range was not used to interpret this result as normal/abnormal . GRAN MAT (NEUT) % 2.8 % (test code = 770-8) IMM GRAN % (test code 0.00 % = 2717100519) LYMPH % (test code = 88.9 % 736-9) MONO % (test code = 0.0 % 5905-5) EOS % (test code = 8.3 % 713-8) BASO % (test code = 0.0 % 706-2) GRAN MAT x10^3(ANC) <0.03 1.88-7.09 L (test code = 8507938671) IMM GRAN x10^3 (test <0.03 0.00-0.06 code = 4111965026) LYMPH x10^3 (test code 0.32 10*3/uL 1.32-3.29 L = 731-0) MONO x10^3 (test code <0.03 0.33-0.92 L = 742-7) EOS x10^3 (test code = 0.03 10*3/uL 0.03-0.39 711-2) BASO x10^3 (test code <0.03 0.01-0.07 = 704-7) Lab Interpretation Abnormal (test code = 79421-9) [facility] GLUCOSE (AUTOMATED)2021-12-05 10:17:45 Test Item Value Reference Range Interpretation Comments POCT GLU (test code = 6897970394) 158 mg/dL 70-110 H Lab Interpretation (test code = Abnormal 35782-4) [facility] GLUCOSE (AUTOMATED)2021-12-05 05:48:51 Test Item Value Reference Range Interpretation Comments POCT GLU (test code = 8105315067) 154 mg/dL 70-110 H Lab Interpretation (test code = Abnormal 29090-7) [facility] GLUCOSE (AUTOMATED)2021-12-05 01:17:12 Test Item Value Reference Range Interpretation Comments POCT GLU (test code = 4071951837) 171 mg/dL 70-110 H Lab Interpretation (test code = Abnormal 45532-4) [facility] GLUCOSE (AUTOMATED)2021-12-04 21:33:40 Test Item Value Reference Range Interpretation Comments POCT GLU (test code = 0309463488) 175 mg/dL 70-110 H Lab Interpretation (test code = Abnormal 77840-7) [facility] PasoMETHOTREXATE2022-06-25 16:55:04 Test Item Value Reference Range Interpretation Comments METHOTREX (test code <0.050 umol/L = 3122366841) FINA (test code = THERAPEUTIC RANGE = FINA) VARIABLE (DEPENDS ON TREATMENT PROTOCOL)TOXIC RANGE = GREATER THAN 10.00 UMOL/L @ 24 HRS ?GREATER THAN ?1.00 UMOL/L @ 48 HRS ?GREATER THAN ?0.10 UMOL/L @ 72 HRS Test developed and characteristics determined by [facility] Laboratory Services. [facility] GLUCOSE (AUTOMATED)2021-12-04 16:28:19 Test Item Value Reference Range Interpretation Comments POCT GLU (test code = 8391750420) 190 mg/dL 70-110 H Lab Interpretation (test code = Abnormal 78592-2) [facility] GLUCOSE (AUTOMATED)2021-12-04 12:43:03 Test Item Value Reference Range Interpretation Comments POCT GLU (test code = 6501403834) 202 mg/dL 70-110 H Lab Interpretation (test code = Abnormal 17137-6) [facility] WITH [id number] 11:43:45 Test Item Value Reference Range Interpretation [...] RDW-SD (test code = 45.6 fL 39.0-49.9 14210-5) RDW-CV (test code = 13.6 % 12.0-15.5 788-0) PLT (test code = See_Comment LL [Automated 777-3) message] The sy stem which generated this result transmitted reference range : 166 - 358 10*3/ ?L. The reference r willem was not used to interpret this result as normal/abnormal . MPV (test code = 10.8 fL 9.5-12.9 68596-8) IPF % (test code = 2.1 % 1.3-7.7 Platelet count 9621232819) measured by fluorescence method. NRBC/100 WBC (test See_Comment [Automat ed code = 2756053426) message] The system which generated this result transmitted reference range : 0.0 - 10.0 /100 WBCs. The refer ence range was not u sed to interpret th is result as normal/abnormal . NRBC x10^3 (test code <0.01 See_Comment [Auto mated = 9993840088) message] The s ystem which generated this result transmitted reference range : 10*3/?L. The reference range was not used to interpret this result as normal/abnormal . SEG % (test code = 4 % 33-76 L 22578-2) LYMPH % (test code = 83 % 14-54 H 72984-6) MONO % (test code = 6 % 0-4 H 93877-4) EOS % (test code = 7 % 0-3 H 55687-7) ANC (test code = 0.01 10*3/uL 1.88-7.09 L 753-4) Lab Interpretation Abnormal (test code = 11560-8) [facility] METABOLIC PANEL (NA, K, CL, CO2, GLUCOSE, BUN, CREATININE, CA)2021-12-04 11:33:23 Test Item Value Reference Range Interpretation Comments NA (test code = 140 mmol/L 135-145 5606649995) K (test code = 3.3 mmol/L 3.5-5.0 L 4724927368) CL (test code = 112 mmol/L 98-108 H 6049251871) CO2 TOTAL (test code = 21 mmol/L 23-31 L 0511467161) AGAP (test code = 2-16 3723773497) BUN (test code = 45 mg/dL 7-23 H 9822160740) GLUCOSE (test code = 176 mg/dL 70-110 H 9957602944) CREATININE (test code = 1.48 mg/dL 0.50-1.04 H 1845264400) CALCIUM (test code = 5.1 mg/dL 8.6-10.6 LL 8506966486) eGFR (test code = mL/min/1.73m2 5946286732) FINA (test code = FINA) Association of [...] tests). Lab Interpretation Abnormal (test code = 99021-9) [facility] GLUCOSE (AUTOMATED)2021-12-04 09:39:15 Test Item Value Reference Range Interpretation Comments POCT GLU (test code = 0725607140) 175 mg/dL 70-110 H Lab Interpretation (test code = Abnormal 97720-1) [facility] GLUCOSE (AUTOMATED)2021-12-04 09:14:38 Test Item Value Reference Range Interpretation Comments POCT GLU (test code = 4807953859) 177 mg/dL 70-110 H Lab Interpretation (test code = Abnormal 09361-9) [facility] GLUCOSE (AUTOMATED)2021-12-04 06:26:04 Test Item Value Reference Range Interpretation Comments POCT GLU (test code = 4323372994) 214 mg/dL 70-110 H Lab Interpretation (test code = Abnormal 06123-9) [facility] GLUCOSE (AUTOMATED)2021-12-04 03:09:21 Test Item Value Reference Range Interpretation Comments POCT GLU (test code = 7430511539) 210 mg/dL 70-110 H Lab Interpretation (test code = Abnormal 47045-3) [facility] GLUCOSE (AUTOMATED)2021-12-03 22:02:35 Test Item Value Reference Range Interpretation Comments POCT GLU (test code = 2222661392) 222 mg/dL 70-110 H Lab Interpretation (test code = Abnormal 06129-1) [facility] GLUCOSE (AUTOMATED)2021-12-03 17:13:52 Test Item Value Reference Range Interpretation Comments POCT GLU (test code = 7458728219) 185 mg/dL 70-110 H Lab Interpretation (test code = Abnormal 07741-2) [facility] GLUCOSE (AUTOMATED)2021-12-03 15:33:09 Test Item Value Reference Range Interpretation Comments POCT GLU (test code = 8534486239) 187 mg/dL 70-110 H Lab Interpretation (test code = Abnormal 60125-0) [facility] RBC (in units), 1 Units 2021-12-03 14:24:52 Test Item Value Reference Range Interpretation Comments Cross Match Result Compatible (test code = 4409) ISBT Blood Type Code (test code = 210403) Unit Blood Type (test O Pos code = 4410) Unit Number (test [id number] code = 4411) Blood Expiration Date & Time (test code = 198668) Status Information Issued (test code = 4412) Product Red Blood Cells Identification (test code = 4413) Product Code (test [id number] Performed at [facility] code = 4414) Laboratory Services - [facility] Blood [address] [place] [id number] Free: [phone] A No. [id number] [facility] GLUCOSE (AUTOMATED)2021-12-03 13:14:18 Test Item Value Reference Range Interpretation Comments POCT GLU (test code = 8178309671) 196 mg/dL 70-110 H Lab Interpretation (test code = Abnormal 31467-9) [facility] WITH [id number] 11:40:17 Test Item Value Reference Range Interpretation Comments WBC (test code = See_Comment LL [Automated 3490-2) message] The sy stem which generated this result transmitted reference range : 4.30 - 11.10 10*3/?L. The reference range was not used to interpret this result as normal/abnormal . RBC (test code = See_Comment L [Automated 559-8) message] The sy stem which generated this [...] RDW-SD (test code = 44.3 fL 39.0-49.9 95330-6) RDW-CV (test code = 13.2 % 12.0-15.5 788-0) PLT (test code = See_Comment LL [Automated 777-3) message] The sy stem which generated this result transmitted reference range : 166 - 358 10*3/ ?L. The reference r willem was not used to interpret this result as normal/abnormal . MPV (test code = 11.0 fL 9.5-12.9 53600-0) IPF % (test code = 2.5 % 1.3-7.7 Platelet count 8232977105) measured by fluorescence method. NRBC/100 WBC (test See_Comment [Automat ed code = 5807077961) message] The system which generated this result transmitted reference range : 0.0 - 10.0 /100 WBCs. The refer ence range was not u sed to interpret th is result as normal/abnormal . NRBC x10^3 (test code <0.01 See_Comment [Auto mated = 5801544245) message] The s ystem which generated this result transmitted reference range : 10*3/?L. The reference range was not used to interpret this result as normal/abnormal . SEG % (test code = 5 % 33-76 L 18357-7) LYMPH % (test code = 78 % 14-54 H 74958-8) EOS % (test code = 17 % 0-3 H 52696-1) ANC (test code = 0.03 10*3/uL 1.88-7.09 L 753-4) DOHLE BODIES (test Present A code = 7792-5) Lab Interpretation Abnormal (test code = 76481-8) [facility] (NA, K, CL, CO2, GLUCOSE, BUN, CREATININE, CA)2021-12-03 11:18:49 Test Item Value Reference Range Interpretation Comments NA (test code = 144 mmol/L 135-145 9171949362) K (test code = 3.5 mmol/L 3.5-5.0 2827138808) CL (test code = 116 mmol/L 98-108 H 7478342941) CO2 TOTAL (test code = 22 mmol/L 23-31 L 1756908527) AGAP (test code = 2-16 6348679822) BUN (test code = 54 mg/dL 7-23 H 9313349363) GLUCOSE (test code = 158 mg/dL 70-110 H 8120631820) CREATININE (test code = 1.60 mg/dL 0.50-1.04 H 2084611131) CALCIUM (test code = 6.1 mg/dL 8.6-10.6 L 1327825956) eGFR (test code = mL/min/1.73m2 1514590953) FINA (test code = FINA) Association of [...] tests). Lab Interpretation Abnormal (test code = 47665-8) [facility] 11:18:49 Test Item Value Reference Range Interpretation Comments MAGNESIUM (test code = 6564117046) 2.3 mg/dL 1.7-2.4 Lab Interpretation (test code = Normal 66313-4) [facility] GLUCOSE (AUTOMATED)2021-12-03 10:31:14 Test Item Value Reference Range Interpretation Comments POCT GLU (test code = 8646139684) 167 mg/dL 70-110 H Lab Interpretation (test code = Abnormal 91135-5) [facility] GLUCOSE (AUTOMATED)2021-12-03 06:54:17 Test Item Value Reference Range Interpretation Comments POCT GLU (test code = 2400928592) 177 mg/dL 70-110 H Lab Interpretation (test code = Abnormal 54338-9) [facility] GLUCOSE (AUTOMATED)2021-12-03 04:53:06 Test Item Value Reference Range Interpretation Comments POCT GLU (test code = 7691546605) 182 mg/dL 70-110 H Lab Interpretation (test code = Abnormal 96779-6) [facility] GLUCOSE (AUTOMATED)2021-12-03 04:05:43 Test Item Value Reference Range Interpretation Comments POCT GLU (test code = 8528344758) 191 mg/dL 70-110 H Lab Interpretation (test code = Abnormal 44829-7) [facility] GLUCOSE (AUTOMATED)2021-12-03 03:01:07 Test Item Value Reference Range Interpretation Comments POCT GLU (test code = 4810418432) 209 mg/dL 70-110 H Lab Interpretation (test code = Abnormal 59765-2) [facility] GLUCOSE (AUTOMATED)2021-12-03 02:14:25 Test Item Value Reference Range Interpretation Comments POCT GLU (test code = 8046987538) 226 mg/dL 70-110 H Lab Interpretation (test code = Abnormal 80154-7) [facility] Metabolc Panel (Na, K, Cl, CO2, Glucose, BUN, Creatinine, Ca)2021-12-02 23:28:32 Test Item Value Reference Range Interpretation Comments NA (test code = 144 mmol/L 135-145 6444393498) K (test code = 3.8 mmol/L 3.5-5.0 7456045783) CL (test code = 114 mmol/L 98-108 H 9953194048) CO2 TOTAL (test code = 23 mmol/L 23-31 1274556935) AGAP (test code = 2-16 5443156955) BUN (test code = 66 mg/dL 7-23 H 4492680007) GLUCOSE (test code = 232 mg/dL 70-110 H 2094816925) CREATININE (test code = 1.77 mg/dL 0.50-1.04 H 5508598731) CALCIUM (test code = 6.1 mg/dL 8.6-10.6 L 9346513625) eGFR (test code = mL/min/1.73m2 1619326765) FINA (test code = FINA) Association of [...] tests). Lab Interpretation Abnormal (test code = 20042-2) [facility] GLUCOSE (AUTOMATED)2021-12-02 23:02:42 Test Item Value Reference Range Interpretation Comments POCT GLU (test code = 1824004929) 244 mg/dL 70-110 H Lab Interpretation (test code = Abnormal 09583-0) [facility]ETH[facility]XATE2022-06-23 22:40:23 Test Item Value Reference Range Interpretation Comments METHOTREX (test code 0.050 umol/L = 7849429219) FINA (test code = THERAPEUTIC RANGE = FINA) VARIABLE (DEPENDS ON TREATMENT PROTOCOL)TOXIC RANGE = GREATER THAN 10.00 UMOL/L @ 24 HRS ?GREATER THAN ?1.00 UMOL/L @ 48 HRS ?GREATER THAN ?0.10 UMOL/L @ 72 HRS Test developed and characteristics determined by [facility] Laboratory Services. [facility] GLUCOSE (AUTOMATED)2021-12-02 19:55:08 Test Item Value Reference Range Interpretation Comments POCT GLU (test code = 1122696316) 160 mg/dL 70-110 H Lab Interpretation (test code = Abnormal 59381-9) [facility] GLUCOSE (AUTOMATED)2021-12-02 19:08:13 Test Item Value Reference Range Interpretation Comments POCT GLU (test code = 6222373248) >600 70-110 HH Lab Interpretation (test code = Abnormal 36256-1) [facility] GLUCOSE (AUTOMATED)2021-12-02 19:08:13 Test Item Value Reference Range Interpretation Comments POCT GLU (test code = 1303204098) >600 70-110 HH Lab Interpretation (test code = Abnormal 79734-0) [facility] GLUCOSE (AUTOMATED)2021-12-02 19:08:08 Test Item Value Reference Range Interpretation Comments POCT GLU (test code = 6343712626) >600 70-110 HH Lab Interpretation (test code = Abnormal 86631-6) [facility] PasoINTA[facility] PTH CALCIUM [id number] 18:54:48 Test Item Value Reference Range Interpretation Comments PTH-INTACT (test code = 30.2 pg/mL 12.0-88.0 0288895820) PTH-CA Interpretation Furthe r clinical (test code = 8907448753) zachary a needed for interpretation. CALCIUM (test code = 6.2 mg/dL 8.6-10.6 L 1430844839) Lab Interpretation (test Abnormal code = 10521-3) [facility] GLUCOSE (AUTOMATED)2021-12-02 18:28:22 Test Item Value Reference Range Interpretation Comments POCT GLU (test code = 2825651788) 176 mg/dL 70-110 H Lab Interpretation (test code = Abnormal 19887-8) [facility] GLUCOSE (AUTOMATED)2021-12-02 16:59:34 Test Item Value Reference Range Interpretation Comments POCT GLU (test code = 9499708495) 214 mg/dL 70-110 H Lab Interpretation (test code = Abnormal 56535-9) [facility] Paso[facility]-REACTIVE [id number] 16:19:10 Test Item Value Reference Range Interpretation Comments CRP (test code = 7859107492) 17.1 mg/dL <0.8 H Lab Interpretation (test code = Abnormal 47123-8) [facility] GLUCOSE (AUTOMATED)2021-12-02 16:14:05 Test Item Value Reference Range Interpretation Comments POCT GLU (test code = 0085657010) 221 mg/dL 70-110 H Lab Interpretation (test code = Abnormal 25256-8) [facility] GLUCOSE (AUTOMATED)2021-12-02 15:23:01 Test Item Value Reference Range Interpretation Comments POCT GLU (test code = 9702101019) 209 mg/dL 70-110 H Lab Interpretation (test code = Abnormal 87874-5) [facility] Metabolic Panel (Na, K, Cl, CO2, Glucose, BUN, Creatinine, Ca)2021-12-02 14:42:22 Test Item Value Reference Range Interpretation Comments NA (test code = 144 mmol/L 135-145 6326834106) K (test code = 4.0 mmol/L 3.5-5.0 Slight 2582068264) hemolysis CL (test code = 115 mmol/L 98-108 H 0266133089) CO2 TOTAL (test code 25 mmol/L 23-31 = 7123172278) AGAP (test code = 2-16 5337750383) BUN (test code = 76 mg/dL 7-23 H Slight 6408679919) hemolysis GLUCOSE (test code = 225 mg/dL 70-110 H 6875113807) CREATININE (test code 1.96 mg/dL 0.50-1.04 H = 8846390450) CALCIUM (test code = 6.2 mg/dL 8.6-10.6 L 2115336968) eGFR (test code = mL/min/1.73m2 3412366608) FINA (test code = FINA) Association of [...] tests). Lab Interpretation Abnormal (test code = 87283-2) [facility]2021-12-02 14:10:31 Test Item Value Reference Range Interpretation Comments POCT GLU (test code = 9139497654) 239 mg/dL 70-110 H Lab Interpretation (test code = Abnormal 09476-0) [facility] PasoHAPTOGLOBIN, [id number] 13:57:00 Test Item Value Reference Range Interpretation Comments HAPTOGLOB (test code = 3321646735) 219 mg/dL 16-200 H Lab Interpretation (test code = Abnormal 55283-1) [facility] GLUCOSE (AUTOMATED)2021-12-02 13:06:29 Test Item Value Reference Range Interpretation Comments POCT GLU (test code = 5094806426) 237 mg/dL 70-110 H Lab Interpretation (test code = Abnormal 05306-4) [facility] GLUCOSE (AUTOMATED)2021-12-02 12:14:49 Test Item Value Reference Range Interpretation Comments POCT GLU (test code = 3720554477) 235 mg/dL 70-110 H Lab Interpretation (test code = Abnormal 90353-4) [facility] METABOLIC PANEL (NA, K, CL, CO2, GLUCOSE, BUN, CREATININE, CA)2021-12-02 11:59:53 Test Item Value Reference Range Interpretation Comments NA (test code = 140 mmol/L 135-145 5078715296) K (test code = 3.7 mmol/L 3.5-5.0 4491283814) CL (test code = 113 mmol/L 98-108 H 0145180275) CO2 TOTAL (test code = 24 mmol/L 23-31 6123326177) AGAP (test code = 2-16 8264314894) BUN (test code = 79 mg/dL 7-23 H 6983256524) GLUCOSE (test code = 206 mg/dL 70-110 H 8784725602) CREATININE (test code = 2.02 mg/dL 0.50-1.04 H 4189992716) CALCIUM (test code = 6.0 mg/dL 8.6-10.6 L 9727651247) eGFR (test code = mL/min/1.73m2 8357334787) FINA (test code = FINA) Association of [...] tests). Lab Interpretation Abnormal (test code = 23108-6) [facility]2021-12-02 11:09:28 Test Item Value Reference Range Interpretation Comments POCT GLU (test code = 6612228916) 217 mg/dL 70-110 H Lab Interpretation (test code = Abnormal 38406-5) [facility] with Uatifgbbszhp3954-97-82 11:07:37 Test Item Value Reference Range Interpretation [...] RDW-SD (test code = 43.1 fL 39.0-49.9 46166-6) RDW-CV (test code = 13.0 % 12.0-15.5 788-0) PLT (test code = See_Comment LL [Automated 777-3) message] The sy stem which generated this result transmitted reference range : 166 - 358 10*3/ ?L. The reference r willem was not used to interpret this result as normal/abnormal . MPV (test code = 11.6 fL 9.5-12.9 62070-0) IPF % (test code = 3.8 % 1.3-7.7 Platelet count 1339755280) measured by fluorescence method. NRBC/100 WBC (test See_Comment [Automat ed code = 9174432272) message] The system which generated this result transmitted reference range : 0.0 - 10.0 /100 WBCs. The refer ence range was not u sed to interpret th is result as normal/abnormal . NRBC x10^3 (test code <0.01 See_Comment [Auto mated = 2616675659) message] The s ystem which generated this result transmitted reference range : 10*3/?L. The reference range was not used to interpret this result as normal/abnormal . SEG % (test code = 20 % 33-76 L 87001-9) LYMPH % (test code = 73 % 14-54 H 42631-3) MONO % (test code = 7 % 0-4 H 13736-0) ANC (test code = 0.07 10*3/uL 1.88-7.09 L 753-4) Lab Interpretation Abnormal (test code = 58355-6) [facility] GLUCOSE (AUTOMATED)2021-12-02 10:14:19 Test Item Value Reference Range Interpretation Comments POCT GLU (test code = 0114304039) 191 mg/dL 70-110 H Lab Interpretation (test code = Abnormal 72459-9) [facility] GLUCOSE (AUTOMATED)2021-12-02 09:13:29 Test Item Value Reference Range Interpretation Comments POCT GLU (test code = 3510688488) 165 mg/dL 70-110 H Lab Interpretation (test code = Abnormal 35914-5) [facility] Metabolic Panel (Na, K, Cl, CO2, Glucose, BUN, Creatinine, Ca)2021-12-02 09:04:15 Test Item Value Reference Range Interpretation Comments NA (test code = 143 mmol/L 135-145 9675823958) K (test code = 3.7 mmol/L 3.5-5.0 4286834360) CL (test code = 113 mmol/L 98-108 H 4518546270) CO2 TOTAL (test code = 24 mmol/L 23-31 4847314800) AGAP (test code = 2-16 7885644995) BUN (test code = 83 mg/dL 7-23 H 8719958927) GLUCOSE (test code = 121 mg/dL 70-110 H 0817404985) CREATININE (test code = 2.12 mg/dL 0.50-1.04 H 1763385053) CALCIUM (test code = 6.2 mg/dL 8.6-10.6 L 3662112928) eGFR (test code = mL/min/1.73m2 7246258275) FINA (test code = FINA) Association of [...] tests). Lab Interpretation Abnormal (test code = 05720-2) [facility] 09:04:15 Test Item Value Reference Range Interpretation Comments ALBUMIN (test code = 7787163793) 2.6 g/dL 3.5-5.0 L Lab Interpretation (test code = Abnormal 04806-3) [facility] 09:04:15 Test Item Value Reference Range Interpretation Comments MAGNESIUM (test code = 4112272822) 2.6 mg/dL 1.7-2.4 H Lab Interpretation (test code = Abnormal 59395-2) [facility] PasoPHOSPHORUS2022-06-23 09:04:15 Test Item Value Reference Range Interpretation Comments PHOSPHORUS (test code = 4836018992) 4.6 mg/dL 2.5-5.0 Lab Interpretation (test code = Normal 40802-1) [facility] (Na, K, Cl, CO2, Glucose, BUN, Creatinine, Ca)2021-12-02 08:25:17 Test Item Value Reference Range Interpretation Comments NA (test code = 143 mmol/L 135-145 6783326535) K (test code = 3.2 mmol/L 3.5-5.0 L 3618467940) CL (test code = 112 mmol/L 98-108 H 4499566568) CO2 TOTAL (test code = 22 mmol/L 23-31 L 2804800850) AGAP (test code = 2-16 5016485248) BUN (test code = 85 mg/dL 7-23 H 1859157745) GLUCOSE (test code = 113 mg/dL 70-110 H 1496215395) CREATININE (test code = 2.23 mg/dL 0.50-1.04 H 1225727237) CALCIUM (test code = 6.3 mg/dL 8.6-10.6 L 0672096200) eGFR (test code = mL/min/1.73m2 5294205045) FINA (test code = FINA) Association of [...] tests). Lab Interpretation Abnormal (test code = 01376-5) [facility] GLUCOSE (AUTOMATED)2021-12-02 08:06:22 Test Item Value Reference Range Interpretation Comments POCT GLU (test code = 7437085016) 125 mg/dL 70-110 H Lab Interpretation (test code = Abnormal 96375-0) [facility] GLUCOSE (AUTOMATED)2021-12-02 07:11:48 Test Item Value Reference Range Interpretation Comments POCT GLU (test code = 0115980142) 88 mg/dL 70-110 Lab Interpretation (test code = Normal 40030-9) [facility] GLUCOSE (AUTOMATED)2021-12-02 05:55:50 Test Item Value Reference Range Interpretation Comments POCT GLU (test code = 8787283043) 104 mg/dL 70-110 Lab Interpretation (test code = Normal 29298-2) [facility] GLUCOSE (AUTOMATED)2021-12-02 05:14:40 Test Item Value Reference Range Interpretation Comments POCT GLU (test code = 1122133187) 120 mg/dL 70-110 H Lab Interpretation (test code = Abnormal 78444-7) [facility] PasoPrepare Platelets (in units): 1 Units~Indication: 6) Other - (specify in comments); Special Requirements: Leukoreduced, Iceawhxmmq4273-86-24 04:51:39 Test Item Value Reference Range Interpretation Comments Unit Blood Type (test A Pos code = 4410) ISBT Blood Type Code (test code = 384913) Unit Number (test code [id number] = 4411) Blood Expiration Date & Time (test code = 439649) Status Information Issued (test code = 4412) Product Identification Platelets (test code = 4413) Product Code (test [id number] Performed at [facility] code = 4414) Laboratory Services - [facility] Blood [address] [place] [address] [id number] Free: [phone] A No. [id number] [facility] GLUCOSE (AUTOMATED)2021-12-02 03:58:37 Test Item Value Reference Range Interpretation Comments POCT GLU (test code = 5465664422) 140 mg/dL 70-110 H Lab Interpretation (test code = Abnormal 63193-6) [facility] GLUCOSE (AUTOMATED)2021-12-02 03:08:37 Test Item Value Reference Range Interpretation Comments POCT GLU (test code = 0457983454) 178 mg/dL 70-110 H Lab Interpretation (test code = Abnormal 93904-4) [facility] PasoBetahydroxy-Fdskctgc9669-47-02 02:57:55 Test Item Value Reference Range Interpretation Comments BOH (test code = 0.4 mmol/L 6795070515) FINA (test code = Normal Ranges: ? ? FINA) Nonfasting ? Less than 0.1 mmol/L ? ? Overnight Fast ? ? ? Less than 0.4 mmol/L ? ? Fasting (1-2 weeks) ?6-8 mmol/L Test developed and characteristics determined by [facility]. [facility] Metabolic Panel (Na, K, Cl, CO2, Glucose, BUN, Creatinine, Ca)2021-12-02 02:48:36 Test Item Value Reference Range Interpretation Comments NA (test code = 140 mmol/L 135-145 2997140956) K (test code = 3.3 mmol/L 3.5-5.0 L 1000146779) CL (test code = 106 mmol/L 98-108 3678455024) CO2 TOTAL (test code = 24 mmol/L 23-31 2249359525) AGAP (test code = 2-16 6564954456) BUN (test code = 91 mg/dL 7-23 H 9927514898) GLUCOSE (test code = 185 mg/dL 70-110 H 2481189057) CREATININE (test code = 2.37 mg/dL 0.50-1.04 H 4880135832) CALCIUM (test code = 6.5 mg/dL 8.6-10.6 L 8885281125) eGFR (test code = mL/min/1.73m2 0936777131) FINA (test code = FINA) Association of [...] tests). Lab Interpretation Abnormal (test code = 03703-9) [facility] PasoVITAMIN B12, [id number] 02:27:52 Test Item Value Reference Range Interpretation Comments VIT B12 (test code = 490 pg/mL 240-930 1798806751) FINA (test code = FINA) Biotin has been reported to cause a positive bias, interpret results relative to patient's use of biotin. Lab Interpretation (test Normal code = 59930-6) [facility]2021-12-02 02:17:56 Test Item Value Reference Range Interpretation Comments POCT GLU (test code = 1131519934) 211 mg/dL 70-110 H Lab Interpretation (test code = Abnormal 01778-5) [facility] PasoHEPATITIS B SURFACE [id number] 01:27:48 Test Item Value Reference Range Interpretation Comments HBsAB (test code = Negative 7100530567) HBsAb mIU/mL Semi-Quantitative (test code = 0353501560) FINA (test code = Interpretation: FINA) ?Hepatitis B Surface Antibody ? Negative - Patient is considered to be not immune to infection with HBV. ? ? Positive - Anti-HBs detected at greater than or equal to 12 mIU/mL. ?Patient is considered to be immune to infection with HBV. ? [facility] PasoHBC ANTIBODY (IGM & IGG)2021-12-02 01:27:48 Test Item Value Reference Range Interpretation Comments HBC (test code = 4144554293) Negative HBC Semi-Quantitative (test code = 6760050490) [facility] PasoHCV [id number] 01:27:48 Test Item Value Reference Range Interpretation Comments HCV Ab (test code = 09741-1) Negative HCV Semi-Quantitative (test code = 24014-0) [facility] PasoABORH Confirmation (Lab Only)2021-12-02 01:06:47 Test Item Value Reference Range Interpretation Comments ABO & RH (test code O Positive Performe d at [place] = 20) Laboratory Serv [facility] Blood Bank2 [address], [place] [address]Ixmm Free: [phone] A No. [id number] [facility]2021-12-02 01:05:22 Test Item Value Reference Range Interpretation Comments POCT GLU (test code = 8576966831) 269 mg/dL 70-110 H Lab Interpretation (test code = Abnormal 06042-7) [facility]2 AG-AB WITH [id number] 00:39:06 Test Item Value Reference Range Interpretation Comments HIV Negative Negative Semi-quantitative (test code = 15132-2) FINA (test code = Non-reactive for HIV-1 FINA) antigen and HIV-1/HIV-2 antibodies. ?No laboratory evidence of HIV infection. ?Repeat in 2-4 weeks if acute HIV infection is suspected. [facility] PasoHEPATITIS B SURFACE [id number] 00:29:45 Test Item Value Reference Range Interpretation Comments HBsAg Semi-Quantitative (test code = Negative Negative 5195-3) [facility] PasoType and Screen - ONCE [id number] 00:19:48 Test Item Value Reference Range Interpretation Comments ABO & RH (test code O Positive Performe d at [facility] = 20) Laboratory Serv [facility] [place], [place] [id number] Free: [phone] A No. [id number] IAT (test code = Negative Performed a t [facility] 1185) Laboratory Serv [facility] [place], [place] [id number] Free: [phone] A No. [id number] [facility] Metabolic Panel (Na, K, Cl, CO2, Glucose, BUN, Creatinine, Ca)2021-12-02 00:10:04 Test Item Value Reference Range Interpretation Comments NA (test code = 138 mmol/L 135-145 8742931765) K (test code = 3.2 mmol/L 3.5-5.0 L 3965653204) CL (test code = 103 mmol/L 98-108 0363256583) CO2 TOTAL (test code = 24 mmol/L 23-31 6054234021) AGAP (test code = 2-16 0409837472) BUN (test code = 93 mg/dL 7-23 H 8197550822) GLUCOSE (test code = 355 mg/dL 70-110 H 2157162586) CREATININE (test code = 2.56 mg/dL 0.50-1.04 H 9508274684) CALCIUM (test code = 6.6 mg/dL 8.6-10.6 L 7517948678) eGFR (test code = mL/min/1.73m2 0668677652) FINA (test code = FINA) Association of [...] tests). Lab Interpretation Abnormal (test code = 94685-4) [facility] GLUCOSE (AUTOMATED)2021-12-02 00:05:47 Test Item Value Reference Range Interpretation Comments POCT GLU (test code = 3994040477) 357 mg/dL 70-110 H Lab Interpretation (test code = Abnormal 82918-1) [facility] GLUCOSE (AUTOMATED)2021-12-01 23:03:55 Test Item Value Reference Range Interpretation Comments POCT GLU (test code = 1933468867) 435 mg/dL 70-110 H Lab Interpretation (test code = Abnormal 54947-8) [facility] GLUCOSE (AUTOMATED)2021-12-01 22:11:05 Test Item Value Reference Range Interpretation Comments POCT GLU (test code = 2749933084) 500 mg/dL 70-110 HH Lab Interpretation (test code = Abnormal 56251-5) [facility] PasoFERRITIN [id number] 21:57:21 Test Item Value Reference Range Interpretation Comments FERRITIN (test code = 460.0 ng/mL 11.0-264.0 H 8583308923) FINA (test code = FINA) Biotin has been reported to cause a negative bias, interpret results relative to patient's use of biotin. Lab Interpretation (test Abnormal code = 76586-8) [facility] PasoIRON [id number] 21:47:56 Test Item Value Reference Range Interpretation Comments IRON (test code = 157 ug/dL 50-160 Slight hem olysis 3869618426) TIBC (test code = 249 ug/dL 250-410 L 1871933907) % FE SAT (test code = 63 % 20-50 H 5458899384) Lab Interpretation (test Abnormal code = 78018-3) [facility] PasoHEPATIC FUNCTION PANEL (01033) (ALB,T.PRO,BILI T,BU/BC,ALT,AST,ALK PHOS)2021-12-01 21:18:48 Test Item Value Reference Range Interpretation Comments TOTAL BILI (test code = 5522452488) 1.0 mg/dL 0.1-1.1 BILI UNCON (test code = 7977283332) 0.3 mg/dL 0.1-1.1 BILI CONJ (test code = 9104405593) 0.0 mg/dL 0.0-0.3 T PROTEIN (test code = 7209622178) 6.1 g/dL 6.3-8.2 L ALBUMIN (test code = 0555612398) 3.1 g/dL 3.5-5.0 L ALK PHOS (test code = 5090330216) 82 U/L 34-122 ALTv (test code = 1742-6) 20 U/L 5-35 AST(SGOT) (test code = 7996042970) 29 U/L 13-40 Lab Interpretation (test code = Abnormal 64524-7) [facility] PasoURIC [id number] 21:18:48 Test Item Value Reference Range Interpretation Comments URIC ACID (test code = 6059757576) 9.9 mg/dL 2.9-6.0 H Lab Interpretation (test code = Abnormal 57660-6) [facility] PasoOsmolality [id number] 21:11:01 Test Item Value Reference Range Interpretation Comments OSMOLALITY (test code = See_Comment [Au tomated message] 2692-2) The system [employer] generated this result transmitted ref erence range: 278 - 30 5 mOsm/kg. The reference range was not used to int erpret this result as normal/abnormal . Lab Interpretation (test Abnormal code = 58199-0) [facility] (NA, K, CL, CO2, GLUCOSE, BUN, CREATININE, CA)2021-12-01 21:10:25 Test Item Value Reference Range Interpretation Comments NA (test code = 132 mmol/L 135-145 L 0989525670) K (test code = 3.9 mmol/L 3.5-5.0 8886518972) CL (test code = 97 mmol/L 98-108 L 0822505005) CO2 TOTAL (test code = 21 mmol/L 23-31 L 4361935726) AGAP (test code = 2-16 8877566129) BUN (test code = 101 mg/dL 7-23 H 0031728236) GLUCOSE (test code = 726 mg/dL 70-110 9532225980) CREATININE (test code = 2.70 mg/dL 0.50-1.04 H 4555749580) CALCIUM (test code = 6.6 mg/dL 8.6-10.6 L 2939182600) eGFR (test code = mL/min/1.73m2 7094072230) FINA (test code = FINA) Association of [...] tests). Lab Interpretation Abnormal (test code = 35824-6) [facility] PasoIRON [id number] 20:59:43 Test Item Value Reference Range Interpretation Comments IRON (test code = 4427735634) 143 ug/dL 50-160 TIBC (test code = 6707349600) 251 ug/dL 250-410 % FE SAT (test code = 6448324412) 57 % 20-50 H Lab Interpretation (test code = Abnormal 32039-9) [facility] PasoTOTAL IRON BINDING [id number] 20:59:43 Test Item Value Reference Range Interpretation Comments TIBC (test code = 6639215256) 251 ug/dL 250-410 Lab Interpretation (test code = Normal 15829-2) [facility] PasoGlycosylated Hemoglobin (A1C)2021-12-01 20:56:03 Test Item Value Reference Range Interpretation Comments HGB A1C (test code = 11.4 % 4.0-5.7 H 4548-4) FINA (test code = FINA) Reference RangesNormal: <5.7%Prediabetes: 5.7 - 6.4%Diabetes: > 6.5% Lab Interpretation (test Abnormal code = 10035-8) [facility] PasoMagnesium [id number] 20:47:01 Test Item Value Reference Range Interpretation Comments MAGNESIUM (test code = 8297511212) 2.5 mg/dL 1.7-2.4 H Lab Interpretation (test code = Abnormal 02745-5) [facility] PasoPhosphorus [id number] 20:47:01 Test Item Value Reference Range Interpretation Comments PHOSPHORUS (test code = 1439099373) 7.4 mg/dL 2.5-5.0 H Lab Interpretation (test code = Abnormal 50781-2) [facility] PasoLACTATE [id number] 20:24:15 Test Item Value Reference Range Interpretation Comments LDH (test code = 2680010663) 440 U/L 300-600 Lab Interpretation (test code = Normal 42853-5) [facility] PasoBETA [id number] 20:23:15 Test Item Value Reference Range Interpretation Comments BOH (test code = 2.4 mmol/L 3216711263) FINA (test code = Normal Ranges: ? ? FINA) Nonfasting ? Less than 0.1 mmol/L ? ? Overnight Fast ? ? ? Less than 0.4 mmol/L ? ? Fasting (1-2 weeks) ?6-8 mmol/L Test developed and characteristics determined by [facility] Laboratory Services. [facility] PasoRETICULOCYTES [id number] 19:22:07 Test Item Value Reference Range Interpretation Comments RETIC Count Automated 0.39 % 0.51-1.90 L (test code = 2247776620) RETIC Absolute Count <0.0100 See_Comment L [Autom ated message] (test code = 7492234763) The system which generated this result transmitted ref erence range: 0.0230 - 0.0950 10*6/?L. The reference range was not used to int erpret this result as normal/abnormal . IRF % (test code = 4.90 % 2.10-12.60 9952585624) RETIC-HE (test code = 42.9 pg 28.1-35.8 H 3818701741) Lab Interpretation (test Abnormal code = 52414-3) [facility]Ac[facility] Arterial Blood Gas.2021-12-01 17:37:26 Test Item Value Reference Range Interpretation Comments PH (test code = 2) 7.35-7.45 PCO2 (test code = See_Comment [Automate d message] 8793059919) The system [employer] generated this result transmitted ref erence range: 35 - 45 mmHg. The reference r willem was not used to interpret this result as normal/abnor mal. PO2 (test code = See_Comment L [Automated message] 6598222929) The system [employer] generated this result transmitted ref erence range: 80 - 100 mmHg. The reference r willem was not used to interpret this result as normal/abnor mal. HCO3 (test code = See_Comment L [Automate d message] 4152922027) The system [employer] generated this result transmitted ref erence range: 22 - 26 mEq/L. The reference r willem was not used to interpret this result as normal/abnor mal. BE (test code = See_Comment L [Automated message] 9774771477) The system [employer] generated this result transmitted ref erence range: -3.0 - 3 .0 mEq/L. The refe rence range was not u sed to interpret this result as normal/abnor mal. Lab Interpretation (test Abnormal code = 75723-8) [facility] PasoBASIC METABOLIC PANEL (NA, K, CL, CO2, GLUCOSE, BUN, CREATININE, CA)2021-12-01 15:00:17 Test Item Value Reference Range Interpretation Comments NA (test code = 132 mmol/L 135-145 L 3800141946) K (test code = 4.5 mmol/L 3.5-5.0 7130602297) CL (test code = 94 mmol/L 98-108 L 6054770995) CO2 TOTAL (test code = 20 mmol/L 23-31 L 5542062942) AGAP (test code = 2-16 H 0271808489) BUN (test code = 101 mg/dL 7-23 H 2658144475) GLUCOSE (test code = 671 mg/dL 70-110 HH 3804003018) CREATININE (test code = 2.83 mg/dL 0.50-1.04 H 1306067969) CALCIUM (test code = 6.9 mg/dL 8.6-10.6 L 4581060248) eGFR (test code = mL/min/1.73m2 1679110684) FINA (test code = FINA) Association of [...] tests). Lab Interpretation Abnormal (test code = 39801-7) [facility] PasoGlycosylated Hemoglobin (A1C)2021-12-01 13:48:59 Test Item Value Reference Range Interpretation Comments HGB A1C (test code = 11.8 % 4.0-5.7 H 4548-4) FINA (test code = FINA) Reference RangesNormal: <5.7%Prediabetes: 5.7 - 6.4%Diabetes: > 6.5% Lab Interpretation (test Abnormal code = 53638-0) [facility] PasoCBC WITHOUT [id number] 11:58:50 Test Item Value Reference Range Interpretation Comments WBC (test code = See_Comment LL [Automated message] 6690-2) The system [employer] generated this result transmitted ref erence range: 4.30 - 1 1.10 10*3/?L. The reference range was not used to int erpret this result as normal/abnormal . RBC (test code = 789-8) See_Comment L [Au tomated message] The system [employer] generated this result transmitted ref erence range: [...] See_Comment LL [Au tomated message] The system [employer] generated this result transmitted ref erence range: 166 - 35 8 10*3/?L. The reference range was not used to int erpret this result as normal/abnormal . MPV (test code = Not Measure d 40963-0) RDW-CV (test code = 13.3 % 12.0-15.5 788-0) RDW-SD (test code = 45.8 fL 39.0-49.9 17472-2) NRBC x10^3 (test code = <0.01 See_Comment [Au tomated message] 4960824760) The system [employer] generated this result transmitted ref erence range: 10*3/?L. The reference range was not used to int erpret this result as normal/abnormal . NRBC/100 WBC (test code See_Comment [Au tomated message] = 8510189639) The system [facility] generated this result transmitted ref erence range: 0.0 - 10 .0 /100 WBCs. The reference range was not used to int erpret this result as normal/abnormal . IPF % (test code = 8.9 % 1.3-7.7 H Platelet count 3337135475) measured by fluorescence me thod. Lab Interpretation Abnormal (test code = 54897-2) [facility] PasoProthrombin Time / [id number] 11:29:17 Test Item Value Reference Range Interpretation Comments PROTIME PATIENT (test See_Comment [Auto mated message] code = 5964-2) The system [employer] generated this result transmitted ref erence range: 10.1 - 1 2.6 Seconds. The re ference range was not u sed to interpret this result as normal/abnor mal. INR (test code = 6301-6) Nor mal INR <1.1; Warfarin Therap eutic range 2.0 to 3. 0 or 2.5 to 3.5, dep ending upon the indica tions. Lab Interpretation (test Normal code = 92413-5) [facility] PasoaPTT2022-06-22 11:29:17 Test Item Value Reference Range Interpretation Comments APTT Patient (test code = See_Comment [ Automated message] 3173-2) The system [employer] generated this result transmitted ref erence range: 26 - 36 Seconds. The re ference range was not u sed to interpret this result as normal/abnor mal. Lab Interpretation (test Normal code = 93691-3) [facility]"
[2022-05-30] MEDS ORDERED: ACETAMINOPHEN 325 MG TABLET PO PRN (14:38)
[2022-05-30] MEDS ORDERED: HYDROCODONE/APAP 5/325 MG TAB PO PRN (14:38)
[2022-05-30] MEDS ORDERED: ONDANSETRON 4 MG/2 ML VIAL IV PRN (14:40)
[2022-05-30] MEDS: NA CHLORIDE 0.9% 1,000 ML IV SCH (15:00)
--- NOTE | 2022-05-30 15:10 | P.HP ---
Certification for Inpatient Patient admitted to: Inpatient With expected LOS: >2 Midnights Practitioner: I am a practitioner with admitting privileges, knowledge of patient current condition, hospital course, and medical plan of care. Services: Services provided to patient in accordance with Admission requirements found in Title 42 Section 412.3 of the Code of Federal Regulations Patient History Date of Service: 05/30/22 Reason for admission: Acute renal failure History of Present Illness: 62-year-old man with a history of diabetes mellitus type 2, chronic kidney disease, morbid obesity, patient recently diagnosed with focal segmental glomerulosclerosis by kidney biopsy was found to have increased creatinine level during routine visit to her panelboard tank pumper Dr. Loaiza. Dr. Loaiza called for patient to be diarrhea admitted for further management. Patient denies any nausea or vomiting or diarrhea, she also denies any reduced oral intake. Patient is on Lasix for peripheral edema as well as losartan. She is admitted for further management. Allergies codeine Allergy (Verified 05/09/22 12:26) Shortness of breath, tongue swelling Sulfa (Sulfonamide Antibiotics) Allergy (Verified 05/09/22 12:26) Itching/Hives/Rash Home Medications: Doxepin HCl [Sinequan*] 10 mg PO BEDTIME 01/03/22 Fenofibrate,Micronized [Fenofibrate] 54 mg PO DAILY 01/03/22 Folic Acid 1 mg PO DAILY 01/03/22 Furosemide [Lasix*] 40 mg PO DAILY 01/03/22 Gabapentin 300 mg PO BID 01/03/22 Hydralazine [Apresoline*] 1 tab PO TID 01/03/22 Losartan/Hydrochlorothiazide [Losartan-Hctz 100-12.5 mg Tab] 1 tab PO DAILY 01/03/22 Metoprolol Tartrate 25 mg PO BID 01/03/22 Mv-Mn/Iron/Folic Acid/Herb 190 [Vitamin D3 Complete Caplet] 50,000 unit PO SE ECOM 01/03/22 [place]-3/Dha/Epa/Fish Oil [Nuretin Softgel] 1 cap PO DAILY 01/03/22 Pantoprazole [Protonix Tab*] 1 tab PO DAILY 01/03/22 Insulin Aspart [Novolog Flexpen] 15 units SQ SEECOM 01/04/22 Insulin Detemir [Levemir] 45 units SQ SEECOM 01/04/22 Calcitrol [Rocaltrol*] 0.5 mcg PO DAILY #30 cap 01/05/22 Calcium Carbonate [Oscal*] 1,500 mg PO TID #270 tab 01/05/22 Magnesium Oxide [Mag 0X*] 400 mg PO BID #60 tab 01/05/22 hydroCHLOROthiazide [Hydrochlorothiazide*] 12.5 mg PO DAILY #30 cap 01/05/22 Levothyroxine Sodium [Levothyroxine] 150 mcg PO DAILY 05/09/22 - Past Medical/Surgical History Diabetic: Yes -: IDDM -: HTN -: Hypothyroid -: Morbid obesity -: Rheumatoid arthritis -: Recent pancytopenia secondary to methotrexate -: thyroidectomy -: Back surgery on the sciatic nerve - Family History Mother -: Diabetes, Cancer, Kidney disease - Social History Alcohol use: No CD- Drugs: No Caffeine use: No Review of Systems Other: Except as documented all other systems reviewed and negative. Physical Examination - Vital Signs Temperature: 96.9 F Blood Pressure: 134/74 Pulse: 58 Respirations: 16 Pulse Ox (%): 96 - Physical Exam General: Alert, In no apparent distress, Oriented x3, Obese HEENT: Mucous membr. moist/pink Neck: JVD not distended Respiratory: Clear to auscultation bilaterally, Normal air movement Cardiovascular: No edema, Regular rate/rhythm, Normal S1 S2 Capillary refill: <2 Seconds Gastrointestinal: Normal bowel sounds, Soft and benign, Non-distended, No tenderness Musculoskeletal: No swelling Integumentary: No rashes, No cyanosis Neurological: Normal strength at 5/5 x4 extr Lymphatics: No axilla or inguinal lymphadenopathy Assessment and Plan - Problems (Diagnosis) (1) Acute renal failure superimposed on stage 3 chronic kidney disease Current Visit: Yes Status: Acute (2) Type 2 diabetes mellitus Current Visit: Yes Status: Acute (3) Hypertension Current Visit: Yes Status: Acute (4) Focal segmental glomerulosclerosis Current Visit: Yes Status: Acute - Plan Admit to the medical floor. Nephrology consulted, patient seen by nephrology Dr. Loaiza recommend IV hydration. Hold Lasix and losartan. Start IV normal saline. Monitor renal function for improvement. Aggressive blood pressure control-continue home antihypertensives. Insulin sliding scale for glucose management Continue home insulin regimen. Nephrology to follow. - Advance Directives Does patient have a Living Will: Yes Does patient have a Durable POA for Healthcare: Yes
[2022-05-30 15:24] LABS: Absolute Lymphocytes (CBC) 1.5 K/uL (0.7-4.9); Hematocrit 30.2 % (36.0-45.0); Lymphocytes % 29.9 % (15.3-44.8); MCV 98.9 fL (80-100); MPV 9.9 fL (7.6-11.3); RBC Red Blood Cell Count 3.05 M/uL (3.86-4.86)
[2022-05-30 15:27] LABS: Protime INR 1.09
[2022-05-30 15:36] LABS: Magnesium 2.3 mg/dL (1.6-2.4); Phosphorus 5.4 mg/dL (2.5-4.9); Troponin High Sensitivity 9.1 pg/mL (<58.9)
[2022-05-30 15:37] LABS: ALT/SGPT 13 U/L (13-56); AST/SGOT 13 U/L (15-37); Albumin 3.1 g/dL (3.4-5.0); Alkaline Phosphatase 111 U/L (45-117); BUN Blood Urea Nitrogen 83 mg/dL (7-18); Bicarbonate 33 mmol/L (21-32); Bilirubin Total 0.3 mg/dL (0.2-1.0); CKMB Creatine Kinase MB < 1.0 ng/mL (1.0-3.6); Glomerular Filtration Rate 17 ml/min (=/>90); Glucose Level 139 mg/dL (74-106); NT PRO-BNP 1128 pg/mL (<125); Potassium 4.2 mmol/L (3.5-5.1); Protein, Total 7.7 g/dL (6.4-8.2); Sodium Level 141 mmol/L (136-145)
[2022-05-30] MEDS: INSULIN -REGULAR HUMAN 50 UNIT/0.5 ML ML SQ SCH ×2 (16:30→21:00)
[2022-05-30 17:29] VITALS: BMI 43.9
[2022-05-30] MEDS: METOPROLOL TAR 25 MG TAB PO SCH (21:24)
[2022-05-30] MEDS: DOXEPIN HCL 10 MG CAP PO SCH (21:25)
[2022-05-30] MEDS: GABAPENTIN 300 MG CAP PO SCH (21:25)
[2022-05-30] MEDS: MAGNESIUM OXIDE 400 MG TAB PO SCH (21:25)
[2022-05-30] MEDS: HEPARIN 5000 UNIT/ML 1 ML VIAL SQ SCH (21:25)
[2022-05-30] MEDS: HYDRALAZINE HCL 25 MG TABLET PO SCH (21:25)
[2022-05-30] MEDS: CALCIUM CARBONATE 500 MG TAB PO SCH (21:31)
--- NOTE | 2022-05-30 22:23 | P.PN ---
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 Loaiza recommend IV hydration. prednisone 60mg daily NS @75 ml/hr Hold Lasix and losartan. Monitor renal function for improvement. Aggressive blood pressure control-continue home antihypertensives. Insulin sliding scale for glucose management Continue home insulin regimen. renal U/S ordered, r/o VICTORIA slight improvement of renal function recent diagnosis of FSGS by biopsy started steroids per nephrology check thyroid levels VTE: heparin SQ Code: full Dispo: home, ~1-2 days Time Spent Managing Pts Care (In Minutes): 35
[2022-05-30 22:57] LABS: Hepatitis B Core Ab, Total Nonreactive (Nonreactive); Hepatitis B Core IgM Nonreactive (Nonreactive)
[2022-05-30 22:59] LABS: Hepatitis B Surface Ab - Quant < 3.1 mIU/mL (<8.0)
[2022-05-31 03:57] LABS: Hematocrit 27.2 % (36.0-45.0); Lymphocytes % 37.6 % (15.3-44.8); MCV 98.7 fL (80-100); MPV 10.4 fL (7.6-11.3); RBC Red Blood Cell Count 2.75 M/uL (3.86-4.86)
[2022-05-31 04:10] LABS: Magnesium 2.3 mg/dL (1.6-2.4); Phosphorus 4.9 mg/dL (2.5-4.9); Potassium 3.6 mmol/L (3.5-5.1); Uric Acid 7.8 mg/dL (2.6-6.0)
[2022-05-31] MEDS: LEVOTHYROXINE SOD 0.075 MG TAB PO SCH (05:18)
[2022-05-31] MEDS: INSULIN -REGULAR HUMAN 50 UNIT/0.5 ML ML SQ SCH ×4 (07:30→21:33)
--- NOTE | 2022-05-31 07:54 | RAD REPORT ---
EXAM DESCRIPTION: US - Abdomen Pelvis Scan US - 05/31/2022 5:47 am CLINICAL HISTORY: Acute renal failure COMPARISON: 2020 FINDINGS: The left kidney measures 13.2 centimeters with a normal echotexture. No hydronephrosis. 3. 5 centimeter cyst. The velocity of left renal artery 178 centimeters per second The right kidney 8.7 centimeters with increased echotexture. Cortical thinning. 2.2 centimeter hypoec hoic mass. No hydronephrosis. Imaging of the right renal artery was limited secondary to body habitus and patient unable to suspend respiration. Values obtained do not demonstrate elevated velocity. No gross abnormality bladder. Aortic velocity not obtained IMPRESSION: The velocity of the left renal artery is borderline elevated. This is equivocal for lesia l arterial stenosis 2.2 centimeter hypoechoic mass right kidney probably complex cyst. [facility]
[2022-05-31] MEDS: predniSONE 20 MG TAB PO SCH (08:00)
[2022-05-31] MEDS ORDERED: FENOFIBRATE MICRONIZED PO SCH (09:00)
[2022-05-31] MEDS: ASPIRIN 81 MG CHEWABLE TABLET PO SCH (09:00)
[2022-05-31] MEDS: FOLIC ACID 1 MG TABLET PO SCH (09:00)
[2022-05-31] MEDS ORDERED: HOME MED 1 EA UNK (Levothyroxine Sodium [Levothyroxine] 150 MCG Capsule) PO SCH (09:00)
[2022-05-31] MEDS: INSULIN GLARGINE 100 UNIT/ML SQ SCH (09:00)
[2022-05-31] MEDS ORDERED: POTASSIUM CL SA 10 MEQ TAB PO ONE (09:00)
[2022-05-31] MEDS: EPA PO SCH (09:00)
[2022-05-31] MEDS: GABAPENTIN 300 MG CAP PO SCH ×2 (09:00→21:25)
[2022-05-31] MEDS: MAGNESIUM OXIDE 400 MG TAB PO SCH (09:00)
[2022-05-31] MEDS: DHA PO SCH (09:00)
[2022-05-31] MEDS: PANTOPRAZOLE 40MG TABLET PO SCH (09:00)
[2022-05-31] MEDS: CALCIUM CARBONATE 500 MG TAB PO SCH ×3 (09:00→21:25)
[2022-05-31] MEDS: HYDRALAZINE HCL 25 MG TABLET PO SCH ×3 (09:00→21:25)
[2022-05-31] MEDS: CALCITROL 0.25 MCG CAP PO SCH (09:00)
[2022-05-31] MEDS: OMEGA PO SCH (09:00)
[2022-05-31] MEDS: FISH OIL PO SCH (09:00)
[2022-05-31] MEDS: HEPARIN 5000 UNIT/ML 1 ML VIAL SQ SCH ×2 (09:00→21:25)
[2022-05-31] MEDS: METOPROLOL TAR 25 MG TAB PO SCH ×2 (09:00→21:31)
[2022-05-31 09:18] LABS: Thyroid Stimulating Hormone 35.7 uIU/mL (0.358-3.740)
--- NOTE | 2022-05-31 15:17 | EKG ---
Test Date: 2022-05-30 Test Time: 14:48:49 Fire Apparatus Sprinkler Inspector: DEANDRE MEASUREMENT RESULTS: Intervals: Rate: 53 IL: 198 QRSD: 88 QT: 518 QTc: 486 [place]: P: 42 IL: 198 QRS: 47 T: 73 INTERPRETIVE STATEMENTS: Sinus bradycardia Otherwise normal ECG Compared to ECG 01/04/2022 01:10:11 Sinus rhythm no longer present ST (T wave) deviation no longer present Electronically Signed On 05-31-22 15:15:11 CUSTOMER OPERATIONS MANAGER by Archie Bhardwaj
[2022-05-31] MEDS: NA CHLORIDE 0.9% 1,000 ML IV SCH (17:40)
--- NOTE | 2022-05-31 20:52 | CON ---
Date of Consultation: 05/31/2022 Chief Complaint: Acute on chronic kidney injury. History Of Present Illness: Patient has multiple medical problems including diabetes mellitus; hyper tension; chronic kidney disease, stage 3. Baseline creatinine level was ranging from 1.5 to 1.8. Re cently, creatinine level increased to 2.6 and patient was referred for renal biopsy and had biopsy do ne in April. Subsequently, she came to see me in the office and blood work done routinely showed creatinine of 3.2. Patient was referred to the hospital for acute kidney injury. Renal biopsy resul are available and it showed focal segmental glomerulosclerosis with collapsing features and podocy te foot process effacement. Patient is started on prednisone for focal segmental glomerulosclerosis, which may be related to previous COVID infection. 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 Patient is nonoliguric and she was asymptomatic. She denie d chest pain, palpitation, syncope, dysuria, hematuria. She has multiple medical problems including history of obesity, hypothyroid. She was hospitalized at least on several occasion at [facility] and she was found to have uncontrolled hypothyroid and she was treated for hypocalcemia. Cur rently, she is on calcitriol and calcium tablet. She previously was seen by Cardiology for chronic c ongestive heart failure and atrial fibrillation. Review of Systems: Constitutional: Denies fever, chills. Eyes: Denies vision changes. Ears, Nose, Mouth, and Throat: Denies sore throat, earache. Respiratory: Denies wheezing. Denies cough, hemoptysis. GI: Denies nausea, vomiting. : Denies dysuria, hematuria. All systems reviewed and all are negative. Past Medical History: Obesity, diabetes mellitus type 2, insulin-dependent diabetes mellitus, hypert ension, hypothyroid, hypocalcemia, morbid obesity, pancytopenia secondary to methotrexate, thyroidect danette, back surgery, chronic kidney disease, stage 3 advancing to stage 4 acute kidney injury, proteinu clovis, focal segmental glomerulosclerosis, diabetic kidney disease. Family History: Mother, diabetes, cancer, kidney disease. Social History: Denies tobacco, alcohol, illicit drugs. Physical Examination: General: Patient is awake, alert, follows commands. Eyes: Anicteric sclerae. EOMI. Ears, Nose, Mouth and Throat: Oral mucosa moist. No pallor. Neck: Supple. No bruits. Lungs: Clear to auscultation bilaterally. Heart: S1, S2. No pericardial friction rub. Abdomen: Soft, obese, nontender. No rebound. No guarding. Extremities: No edema. No clubbing. No cyanosis. Neurological: Moving extremities. Cranial nerves intact. Psychiatric: Alert, oriented x3. Normal affect. Laboratory Work: Chemistry: Sodium 141, potassium 4.2, chloride 104, CO2 of 33, BUN 83, creatinine 3.01. Estimated GFR 17. Glucose 138, calcium 8.1. Phosphorus 5.4, magnesium 2.3. Urinalysis is pe nding. Urine protein creatinine ratio was 2.73. Albumin level is 3.1. BNP is 1128. Impression: 1.Acute on chronic kidney injury. Patient was taken off angiotensin receptor mona during this ad mission. Because of acute kidney injury, she was started on normal saline for mild hydration. Marjorie nt although has some acute kidney injury secondary to ongoing focal segmental glomerulosclerosis. Rob reeves will continue prednisone. She is started on prednisone 60 mg during this admission. Patient w ill require close monitoring of blood glucose and blood pressure. Plan is to adjust blood pressure m edication. Currently, angiotensin receptor mona is on hold because of acute kidney injury. 2.Hypoalbuminemia. Patient likely is progressing to nephrotic range proteinuria. Urine protein to creatinine ratio showed severe proteinuria, which is related to focal segmental glomerulosclerosis an d diabetic kidney disease, although due to acute kidney injury, angiotensin receptor mona is curre ntly on hold. 3.Hypocalcemia. Continue calcitriol. Monitor calcium and monitor magnesium. Plan: 1.Plan is to evaluate 25-hydroxy vitamin D level and intact PTH. Previously intact PTH was within n ormal limits and in December, PTH was 30. 2.Plan is to evaluate for monoclonal gammopathy of unknown significance, although renal biopsy did n ot show any the features related to monoclonal gammopathy of unknown significance. EB/MODL Voice ID: [id number] Report ID: [id number]
[2022-05-31] MEDS: DOXAZOSIN 2 MG TAB PO SCH (21:25)
[2022-05-31] MEDS: AMLODIPINE 2.5 MG TAB PO SCH (21:27)
[2022-05-31] MEDS: DOXEPIN HCL 10 MG CAP PO SCH (21:27)
--- NOTE | 2022-05-31 21:41 | RAD REPORT ---
EXAM DESCRIPTION: CT - Stone Protocol - 05/31/2022 9:04 pm CLINICAL HISTORY: Flank pain. kidney cyst COMPARISON: Stone Protocol dated 01/03/2022; Abdomen Pelvis Scan US dated 05/31/2022 TECHNIQUE: Axial images were obtained without oral or IV contrast. Lack of contrast limits solid org an and vascular assessment. The [id number] spans the entirety of the system partially obscuring uppermost abdomen and lung bases. Coronal reformatted images were obtained and reviewed. All CT scans are performed using dose optimization technique as appropriate and may include automated exposure control or mA/KV adjustment according to patient size. FINDINGS: The lower lung bradshaw are clear. Imaged portions of the liver and spleen show no suspicious findings on non-contrast imaging. The panc reas and adrenal glands are normal. No pathologic lymphadenopathy in the abdomen or pelvis. The right kidney is atrophic. There is a 3 cm right renal cysts with a small calcification peripheral ly. The left kidney appears mildly enlarged without stone or hydronephrosis. 4.7 cm cyst is seen supe rior pole left kidney. No bowel obstruction, free air, free fluid or abscess. Normal appendix noted.Sigmoid diverticulosis c joselyn is present without diverticulitis. Hardware is present spanning L5-S1. Mild degenerative anterolisthesis L4 on L5. IMPRESSION: [id number] atrophy of the right kidney. 3 cm cyst with peripheral calcification mi d cortex right kidney. 4.7 cm cyst upper pole left kidney. No left-sided hydronephrosis or obstructing calculus visible. Sigmoid diverticulosis coli without diverticulitis.
[2022-06-01 03:57] LABS: Hematocrit 28.2 % (36.0-45.0); MCV 98.3 fL (80-100); MPV 10.4 fL (7.6-11.3); RBC Red Blood Cell Count 2.87 M/uL (3.86-4.86)
[2022-06-01 04:04] LABS: Magnesium 2.4 mg/dL (1.6-2.4); Potassium 4.1 mmol/L (3.5-5.1)
[2022-06-01] MEDS: NA CHLORIDE 0.9% 1,000 ML IV SCH ×2 (05:27→07:00)
[2022-06-01] MEDS: LIOTHYRONINE SOD 5 MCG TAB PO SCH (05:28)
[2022-06-01] MEDS: LEVOTHYROXINE SOD 0.075 MG TAB PO SCH (05:28)
[2022-06-01] MEDS: HYDRALAZINE HCL 25 MG TABLET PO SCH ×3 (08:40→20:40)
[2022-06-01] MEDS: METOPROLOL TAR 25 MG TAB PO SCH ×2 (08:40→20:39)
[2022-06-01] MEDS: CALCIUM CARBONATE 500 MG TAB PO SCH ×3 (08:40→20:38)
[2022-06-01] MEDS: AMLODIPINE 2.5 MG TAB PO SCH (08:40)
[2022-06-01] MEDS: PANTOPRAZOLE 40MG TABLET PO SCH (08:40)
[2022-06-01] MEDS: DOXAZOSIN 2 MG TAB PO SCH ×2 (08:40→20:39)
[2022-06-01] MEDS: HEPARIN 5000 UNIT/ML 1 ML VIAL SQ SCH ×2 (08:40→20:41)
[2022-06-01] MEDS: GABAPENTIN 300 MG CAP PO SCH ×2 (08:41→20:41)
[2022-06-01] MEDS: ASPIRIN 81 MG CHEWABLE TABLET PO SCH (08:41)
[2022-06-01] MEDS: INSULIN -REGULAR HUMAN 50 UNIT/0.5 ML ML SQ SCH ×4 (08:41→20:41)
[2022-06-01] MEDS: FOLIC ACID 1 MG TABLET PO SCH (08:41)
[2022-06-01] MEDS: predniSONE 20 MG TAB PO SCH (08:41)
[2022-06-01] MEDS: VITAMIN D 1000 UNIT TAB PO SCH (08:41)
[2022-06-01] MEDS: CALCITROL 0.25 MCG CAP PO SCH (08:41)
[2022-06-01] MEDS: DHA PO SCH (08:42)
[2022-06-01] MEDS: INSULIN GLARGINE 100 UNIT/ML SQ SCH (08:42)
[2022-06-01] MEDS: OMEGA PO SCH (08:42)
[2022-06-01] MEDS: FISH OIL PO SCH (08:42)
[2022-06-01] MEDS: EPA PO SCH (08:42)
[2022-06-01 10:40] VITALS: O2SAT 96
--- NOTE | 2022-06-01 10:56 | PN ---
Date of Progress Note: 06/01/2022 Subjective: The patient was admitted with acute kidney injury on advanced chronic kidney disease. T he patient found to have collapsing FSGS with background of diabetes nephropathy. The patient was st arted on steroid. Physical Examination: Vital Signs: Blood pressure 118/56, pulse of 62, afebrile. The patient had good urine output. Chest: Clear to auscultation. Heart: S1, S2. Regular. Abdomen: Soft, nontender. Extremity: Trace edema. Neurologic: Alert. No focality. Laboratory Data: WBC 5.6, H and H 9.7/28.2. Sodium 140, potassium 4.1, bicarb 26, BUN 61, creatinin e 2.8, GFR of 18, calcium 8.1, magnesium 2.4. Serum protein electrophoresis pending. Vitamin D 49. Assessment And Plan: 1.Chronic kidney disease, stage 4, secondary to diabetes nephropathy/FSGS with close to nephrotic pr oteinuria, slow progression. The patient does not need any renal replacement therapy. The patient w as started on prednisone for the FSGS. We will continue. The patient will need close followup with Dr. Loaiza as outpatient. We will follow up serum protein electrophoresis. 2.Hypertension, controlled, optimal. Continue current medication. The patient may be a candidate f or IAM inhibitor or ARB after stabilized the kidney function. 3.Anemia of chronic kidney disease. Serum protein electrophoresis is pending. I am going to go e ad and send for anemia workup and we will follow up. 4.FSGS as above. Continue the prednisone. Follow up with Dr. Loaiza as outpatient. Discontinue IV f luid. The patient will be cleared from the Renal standpoint for discharge planning after finishing the 24-hour collection. 5.Diabetes as by primary. MA/MODL Voice ID: [id number] Report ID: [id number]
--- NOTE | 2022-06-01 11:56 | PN ---
Date of Progress Note: 06/01/2022 Addendum: Current Medications: The patient on include; 1.Insulin. 2.Levothyroxine. 3.Zofran. 4.Amlodipine 2.5 daily. 5.Doxazosin 1 mg b.i.d. 6.Hydralazine 50 t.i.d. 7.Metoprolol 25 b.i.d. 8.Prednisone 60 daily. 9.Insulin. 10.Calcitriol. 11.Cholecalciferol. ISA Voice ID: [id number] Report ID: [id number]
--- NOTE | 2022-06-01 17:22 | P.PN ---
Date of Service: 06/01/22 Subjective: no acute events overnight, s/p imaging - CT and U/S no new / worsening symptoms ROS: A complete review of systems was performed and is negative except as mentioned above Physical Exam: Gen: NAD, AOx3 HEENT: normal conjunctiva, sclera anicteric CV: regular rate & rhythm, trace b/l pedal edema Pulm: non-labored respirations, clear bilaterally Abd: soft, non-tender, non-distended Skin: no rashes, no lesions Neuro: normal speech, normal affect, moves all extremities vitals reviewed Problem List DEANNA on CKD 3 secondary to FSGS Anemia of chronic disease Hypertension Insulin-dependent DM2 Rheumatoid arthritis Hypothyroidism hypomagnesemia hypocalcemia Nephrology consulted, patient seen by Dr. Loaiza recommend IV hydration. prednisone 60mg daily NS @75 ml/hr initially, dc today Held Lasix and losartan. renal function improved slightly Aggressive blood pressure control-continue home antihypertensives. Insulin sliding scale for glucose management Continue home insulin regimen. slight improvement of renal function recent diagnosis of FSGS by biopsy started steroids per nephrologyf 24hr urine studies ordered VTE: heparin SQ Code: full Dispo: home, ~1 day possible dc tomorrow after studies done, and renal function stable Time Spent Managing Pts Care (In Minutes): 35
[2022-06-01] MEDS: DOXEPIN HCL 10 MG CAP PO SCH (20:41)
[2022-06-02] MEDS: LEVOTHYROXINE SOD 0.075 MG TAB PO SCH (06:02)
[2022-06-02] MEDS: LIOTHYRONINE SOD 5 MCG TAB PO SCH (06:02)
[2022-06-02 06:59] LABS: Albumin 3.1 g/dL (3.4-5.0); BUN Blood Urea Nitrogen 56 mg/dL (7-18); Bicarbonate 26 mmol/L (21-32); Ferritin 190.5 ng/mL (8-388); Folic Acid, (Folate) > 20.0 ng/mL (3.1-17.5); Glomerular Filtration Rate 21 ml/min (=/>90); Glucose Level 247 mg/dL (74-106); Phosphorus 3.9 mg/dL (2.5-4.9); Potassium 4.3 mmol/L (3.5-5.1); Sodium Level 138 mmol/L (136-145); Transferrin 225 mg/dL (200-360)
[2022-06-02 08:03] LABS: Specific Gravity 1.017 (1.005-1.030); Urine Bacteria None Seen /HPF (<20); Urine Bilirubin NEGATIVE (Negative); Urine Blood Negative (Negative); Urine Clarity Clear (Clear); Urine Color Light-Yellow (Yellow); Urine Glucose 2+ (Negative); Urine Mucus Slight /HPF (None Seen); Urine Protein 2+ (Negative); Urine RBC <5 /HPF (None Seen); Urine Urobilinogen Normal (Normal)
[2022-06-02] MEDS: OMEGA PO SCH (08:15)
[2022-06-02] MEDS: EPA PO SCH (08:15)
[2022-06-02] MEDS: DHA PO SCH (08:15)
[2022-06-02] MEDS: FISH OIL PO SCH (08:15)
[2022-06-02] MEDS: VITAMIN D 1000 UNIT TAB PO SCH (08:31)
[2022-06-02] MEDS: CALCITROL 0.25 MCG CAP PO SCH (08:31)
[2022-06-02] MEDS: FOLIC ACID 1 MG TABLET PO SCH (08:31)
[2022-06-02] MEDS: predniSONE 20 MG TAB PO SCH (08:31)
[2022-06-02] MEDS: DOXAZOSIN 2 MG TAB PO SCH (08:31)
[2022-06-02] MEDS: ASPIRIN 81 MG CHEWABLE TABLET PO SCH (08:31)
[2022-06-02] MEDS: CALCIUM CARBONATE 500 MG TAB PO SCH (08:31)
[2022-06-02] MEDS: METOPROLOL TAR 25 MG TAB PO SCH (08:32)
[2022-06-02] MEDS: HYDRALAZINE HCL 25 MG TABLET PO SCH (08:32)
[2022-06-02] MEDS: PANTOPRAZOLE 40MG TABLET PO SCH (08:32)
[2022-06-02] MEDS: AMLODIPINE 2.5 MG TAB PO SCH (08:32)
[2022-06-02] MEDS: HEPARIN 5000 UNIT/ML 1 ML VIAL SQ SCH (08:33)
[2022-06-02] MEDS: GABAPENTIN 300 MG CAP PO SCH (08:33)
[2022-06-02] MEDS: INSULIN -REGULAR HUMAN 50 UNIT/0.5 ML ML SQ SCH (08:33)
[2022-06-02 08:41] VITALS: BP 124/56
[2022-06-02 08:50] VITALS: TEMP 97.9
[2022-06-02] MEDS ORDERED: INSULIN GLARGINE 100 UNIT/ML SQ SCH (09:00)
--- NOTE | 2022-06-03 23:59 | P.DS ---
Admission Date: 05/30/22 Discharge Date: 06/02/22 Disposition: ROUTINE DISCHARGE Discharge Condition: GOOD Reason for Admission: Acute renal failure Consultations: Nephrology - Dr. 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 Dr. Loaiza called for patient to be diarrhea admitted for further management. Patient denies any nausea or vomiting or diarrhea, she also denies any reduced oral intake. Patient is on Lasix for peripheral edema as well as losartan. She is admitted for further management. Hospital Course: Problem List DEANNA on CKD 3 secondary to FSGS Anemia of chronic disease Hypertension Insulin-dependent DM2 Rheumatoid arthritis Hypothyroidism hypomagnesemia hypocalcemia Patient presented with acute worsening of renal function. Recent biopsy revealed +FSGS. Nephrology was consulted and patient was treated with prednisone 60mg daily. Her blood pressure medications - losartan/HCTZ and lasix were held due to DEANNA. Nephrology recommends continue holding these medications. Follow up with Dr. Loaiza in 2 weeks, with blood work -renal panel. Monitor blood glucose levels. Prednisone will increase sugar levels, recommend increasing your long acting insulin from 45 units to 50units. Continue your short acting with sliding scale as previously prescribed. Increase your long acting insulin by 2 units / day if your morning fasting blood glucose level remains>200 Follow up: PCP within 1 week in 2 weeks Maintain your appointment with your [facility] next week, review glucose levels with them. Vital Signs/Physical Exam: Temp Pulse Resp BP Pulse Ox 97.9 F 51 16 124/56 L 97 06/02/22 08:00 06/02/22 08:32 06/02/22 08:00 06/02/22 08:32 06/02/22 08:00 Physical Exam: Gen: NAD, AOx3 HEENT: normal conjunctiva, sclera anicteric CV: regular rate & rhythm, trace b/l pedal edema Pulm: non-labored respirations, clear bilaterally Abd: soft, non-tender, non-distended Skin: no rashes, no lesions Neuro: normal speech, normal affect, moves all extremities Laboratory Data at Discharge: WBC 5.60 K/uL (4.3-10.9) 06/01/22 03:00 Hgb 9.7 g/dL (12.0-15.0) L 06/01/22 03:00 Hct 28.2 % (36.0-45.0) L 06/01/22 03:00 Plt Count 146 K/uL (152-406) L 06/01/22 03:00 PT 12.0 SECONDS (9.5-12.5) 05/30/22 14:59 INR 1.09 05/30/22 14:59 Sodium 138 mmol/L (136-145) 06/02/22 05:51 Potassium 4.3 mmol/L (3.5-5.1) 06/02/22 05:51 BUN 56 mg/dL (7-18) H 06/02/22 05:51 Creatinine 2.49 mg/dL (0.55-1.02) H 06/02/22 05:51 Glucose 247 mg/dL (74-106) H 06/02/22 05:51 Uric Acid 7.8 mg/dL (2.6-6.0) H 05/31/22 02:56 Phosphorus 3.9 mg/dL (2.5-4.9) 06/02/22 05:51 Magnesium 2.4 mg/dL (1.6-2.4) 06/01/22 03:00 Total Bilirubin 0.3 mg/dL (0.2-1.0) 05/30/22 14:59 AST 13 U/L (15-37) L 05/30/22 14:59 ALT 13 U/L (13-56) 05/30/22 14:59 Alkaline Phosphatase 111 U/L (45-117) 05/30/22 14:59 Home Medications: Fenofibrate,Micronized [Fenofibrate] 54 mg PO DAILY 01/03/22 Folic Acid 1 mg PO DAILY 01/03/22 Metoprolol Tartrate 25 mg PO BID 01/03/22 Mv-Mn/Iron/Folic Acid/Herb 190 [Vitamin D3 Complete Caplet] 50,000 unit PO SEECOM 01/03/22 [place]-3/Dha/Epa/Fish Oil [Nuretin Softgel] 1 cap PO DAILY 01/03/22 Pantoprazole [Protonix Tab*] 1 tab PO DAILY 01/03/22 Insulin Aspart [Novolog Flexpen] 15 units SQ SEECOM 01/04/22 Insulin Detemir [Levemir] 45 units SQ SEECOM 01/04/22 Calcitrol [Rocaltrol*] 0.5 mcg PO DAILY #30 cap 01/05/22 Magnesium Oxide [Mag 0X*] 400 mg PO BID #60 tab 01/05/22 Levothyroxine Sodium [Levothyroxine] 150 mcg PO DAILY 05/09/22 Amlodipine [Norvasc*] 2.5 mg PO DAILY 30 Days #30 tab 06/02/22 Doxazosin [Cardura] 1 mg PO BID 30 Days #60 tab 06/02/22 Hydralazine HCl [Apresoline] 50 mg PO TID 30 Days #90 tab 06/02/22 predniSONE [Deltasone] 60 mg PO DAILY 28 Days #84 tab 06/02/22 New Medications: Hydralazine HCl [Apresoline] 50 mg PO TID 30 Days #90 tab Doxazosin [Cardura] 1 mg PO BID 30 Days #60 tab Amlodipine [Norvasc*] 2.5 mg PO DAILY 30 Days #30 tab predniSONE [Deltasone] 60 mg PO DAILY 28 Days #84 tab Physician Discharge Instructions: Patient presented with acute worsening of renal function. Recent biopsy revealed +FSGS. Nephrology was consulted and patient was treated with prednisone 60mg daily. Her blood pressure medications - losartan/HCTZ and lasix were held due to DEANNA. Nephrology recommends continue holding these medications. Follow up with Dr. Loaiza in 2 weeks, with blood work -renal panel. Monitor blood glucose levels. Prednisone will increase sugar levels, recommend increasing your long acting insulin from 45 units to 50units. Continue your short acting with sliding scale as previously prescribed. Increase your long acting insulin by 2 units / day if your morning fasting blood glucose level remains>200 Follow up: PCP within 1 week in 2 weeks Maintain your appointment with your [facility] next week, review glucose levels with them. Time spent managing pt's care (in minutes): 45
[2022-06-05 02:52] LABS: Albumin, (SPE) 3.6 g/dL (3.8-4.8); Alpha-1-Globulins 0.3 g/dL (0.2-0.3); Alpha-2-Globulins 0.7 g/dL (0.5-0.9); Gamma Globulins 1.7 g/dL (0.8-1.7); INTERPRETATION REPORT
[2022-06-05 11:44] LABS: KAPPA LIGHT CHAIN, FREE SERUM 113.5 mg/L (3.3-19.4)
[2022-06-06] MEDS ORDERED: MV MN PO SCH (09:00)
[2022-06-06] MEDS ORDERED: IRON PO SCH (09:00)
[2022-06-06] MEDS ORDERED: HERB PO SCH (09:00)
[2022-06-06] MEDS ORDERED: FOLIC ACID PO SCH (09:00)
[2022-06-07 15:29] LABS: Beta Globulin 24 HR Urine 14 %; Gamma Globulin, 24hr Urine 17 %; Interpretation: REPORT; Protein/Crea Ratio in g 2308 mg/g creat (<150); Protein/Crea Ratio in mg 2.308 (<0.150); Urine Alpha-2-Globulins, 24 Hr 6 %; Urine PEP Abn Protein Band1 REPORT; Urine Total Volume 24 Hours 1975 mL
== END 2022-06-02 10:56 | disposition home or self-care (01) | DRG 683 ==
LOC: 2ND 13:27
PROVIDERS: ADMIT Internal Medicine; ATTEND Hospitalist
DX: N17.9 Acute kidney failure, unspecified (principal); Z68.41 Body mass index [BMI] 40.0-44.9, adult; E66.01 Morbid (severe) obesity due to excess calories; I12.9 Hypertensive chronic kidney disease with stage 1 through stage 4 chronic kidney disease, or unspecified chronic kidney disease; N18.30 Chronic kidney disease, stage 3 unspecified; E11.22 Type 2 diabetes mellitus with diabetic chronic kidney disease; D63.1 Anemia in chronic kidney disease; E88.09 Other disorders of plasma-protein metabolism, not elsewhere classified; E83.42 Hypomagnesemia; E83.51 Hypocalcemia; E03.9 Hypothyroidism, unspecified; D63.8 Anemia in other chronic diseases classified elsewhere; M06.9 Rheumatoid arthritis, unspecified; Z88.5 Allergy status to narcotic agent; Z88.1 Allergy status to other antibiotic agents; Z79.4 Long term (current) use of insulin; Z79.899 Other long term (current) drug therapy; Z79.890 Hormone replacement therapy; Z20.822 Contact with and (suspected) exposure to COVID-19
CPT/HCPCS: 36415; 74176; 76377; 80048; 80053; 80069; 81001; 82043; 82306; 82550; 82553; 82570; 82607; 82728; 82746; 82947; 83036; 83520; 83540; 83735; 83880; 84100; 84156; 84165; 84166; 84439; 84443; 84466; 84484; 84550; 85025; 85027; 85610; 86021; 86038; 86704; 86705; 86706; 87811; 93005; 93975; J1644; J1815; J7030; J7512

== ENCOUNTER 2022-07-21 15:03 | Inpatient (IN) | payer OTHER ==
--- OUTSIDE RECORDS SUMMARY | 2022-07-21 15:21 | XMS REPORT | Continuity of Care Document ---
:1960 Author Organization [facility] t Address [address] [place] [place] [address] Care Team Providers Name Role Phone Ede Stack Primary Care Physician SYSTEM, PROVIDER NOT IN Attending Clinician Unavailable BHANU GOMEZ Attending Clinician Unavailable MARII CROSS Attending Clinician Unavailable GEORGE AUSTIN Attending Clinician Unavailable NOELLE BURNETT Attending Clinician Unavailable TIANA BARTHOLOMEW Attending Clinician Unavailable Sophia SAUER, Remigio Attending Clinician Unavailable Roxane Kumar MD Attending Clinician Unavailable Tito SAUER, Eric Attending Clinician Unavailable Doctor Unassigned, [place] Attending Clinician Unavailable Otto Sanchez DO Attending Clinician Chano LOMELI, Oksana Morel Attending Clinician Unavailable OTTO SANCHEZ Attending Clinician Unavailable Ayesha Bateman MD, Erika Attending Clinician Colt Astorga MD Attending Clinician Pino Restrepo MD Attending Clinician Harjeet Burleson MD Attending Clinician CATARINA MARCUS Attending Clinician Unavailable Catarina Marcus DO Attending Clinician Lexy BUTLER Attending Clinician Unavailable Lexy Perea Attending Clinician Noelle Burnett MD Attending Clinician [phone] Shoaib LOMELI, Suze Attending Clinician Unavailable Waleska [...] Date Expiration Date Mitchell byers [employer]IG[employer] OPEN [id number] 2015 2021 ACCESS/OPEN 00:00:00 00:00:00 ACCESS PLUS [place] [id number] 2021 HEALTH PLAN 00:00:00 CIG[employer] II [id number] 2020 00:00:00 Problems Condition Condition Condition Status Onset Resolution Last Treating Co mments Source Name Details Category Date Date Treatment Clinician Date Morbid Morbid Disease Active Univers obesity obesity 6-23 [place] with [place] mass index 00 [place] dical of of Branch 40.0-49.9 40.0-49.9 Pancytopen Pancytopen Disease Active U nivers ia ia 6-22 ity of 00:00: [address] Obesity Obesity Disease Active Univers (BMI (BMI 6-22 ity of 30-39.9) 30-39.9) 00:00: [address] M65.9 - M65.9 - Diagnosis Active 2018-02-27 Memoria SYNOVITIS SYNOVITIS 02-21 09:58:00 l AND AND 00:01: [place] TENOSYNOVI TENOSYNOVI 00 TIS, U TIS, U Active 02/21/2018 LOVELY [place]gs Generalize Generaliz Problem Active 2018-09-16 Memoria d aches ed aches 02-07 12:47:59 l and pains and pains 00:00: Herm anthony (finding) (finding) 00 Active 02/07/2011 Problem 09/16/2018 L[facility] [place] Diabetes Diabetes Problem Active 2018-09-16 Memoria mellitus mellitus 02-04 12:47:59 l (disorder) (disorder) 00:00: He rmann Active 00 02/04/2011 Problem 09/16/2018 L[facility] [place] Hyperlipid Hyperlipi Problem Active 2018-09-16 Memoria emia(Confi demia(Conf 02-04 12:47:59 l rmed) irmed) 00:00: [place] Active 00 02/04/2011 Problem 09/16/2018 L[facility] [place] Hypertensi Hypertens Problem Active 2018-09-16 Memoria ve zelda 02-04 12:47:59 l disorder, disorder, 00:00: Herm anthony systemic systemic 00 arterial arterial (disorder) (disorder) Active 02/04/2011 Problem 09/16/2018 [facility] [place] No known No known Disease Unive rs active active ity of problems problems [facility] Arthritis Arthritis Problem Active 2018-09-16 Memoria (disorder) (disorder) 12:47:59 l Active [place] Problem 09/16/2018 L[facility]ELY [place] Diabetes Diabetes Problem Active 2018-09-16 Memoria mellitus mellitus 12:47:59 l type 2 type 2 [place] (disorder) (disorder) Active Problem 09/16/2018 Automatica lly added by Discern Expert with order of Add Problem Diabetes Type II on November 10, 2017 10:20:40 CDT with order ID: [id number] 7.0 entered by Ramon Grayson. [facility] [place] Morbid Morbid Problem Active 2018-09-16 Parag clovis obesity obesity 12:47:59 l (disorder) (disorder) He rmann Active Problem 09/16/2018 LOVELY Briggs Pain in Pain in Problem Active 2018-09-16 Me moria lower limb lower limb 12:47:59 l (finding) (finding) Herm anthony Active Problem 09/16/2018 L[facility]ELY [place] Paresthesi Paresthes Problem Active 2018-09-16 Memoria a of hand ia of hand 12:47:59 l (finding) (finding) Herm anthony Active Problem 09/16/2018 [facility] [place] Posterior Posterior Problem Active 2018-09-16 Memoria interosseo interosseo 12:47:59 l us nerve us nerve Davis n lesion lesion (disorder) (disorder) Active Problem 09/16/2018 [facility] Radial Radial Problem Active 2018-09-16 Mem oria neuropathy neuropathy 12:47:59 l (disorder) (disorder) Bao rmann Active Problem 09/16/2018 LOVELY [place] Rheumatoid Rheumatoi Problem Active 2018-09-16 Memoria arthritis d 12:47:59 l (disorder) arthritis Her newman (disorder) Active Problem 09/16/2018 [facility] [place] History of Past Illness Condition Condition Condition Status Onset Resolution Last Treating Co mments Source Name Details Category Date Date Treatment Clinician Date Other Other Problem 2017-2018-09-16 2018-09-16 M emoria synovitis synovitis 03-04 12:47:59 12:47:59 l and and 02:56: Michael tenosynovi tenosynovi 33 tis, right tis, right forearm forearm 03/04/2018 09/16/2018 LOVELY [place] Allergies, Adverse Reactions, Alerts Allergy Allergy Status Severity Reaction(s) Onset Inactive Treating Comm ents Source Name Type Date Date Clinician Sulfa Propensi Active Rash 2021- Univers (Sulfona ty to 1-01 ity of mide adverse 00:00: [place] Antibiot reaction 00 Medica l ics) s Branch SULFA Drug Active Rash Univers (SULFONA Class 1- ity of MIDE 00:00: [place] ANTIBIOT 00 [...] 00 Medical s Branch codeine codeine Active [facility] Social History Social Habit Start Date Stop Date Quantity Comments Source History [facility] Health Alcohol Comment History [facility] Alcohol Std Drinks History [facility] Alcohol Binge Exposure to 2022-05-28 2022-06-07 Not sure [place] [facility] SARS-CoV-2 00:00:00 09:50:00 (event) Alcohol intake 2022-06-07 2022-06-07 0 /d CT Health 00:00:00 00:00:00 Tobacco use and 2021-12-06 2021-12-06 Smokeless tobacco Un iversity of exposure 00:00:00 00:00:00 non-user [place] [facility] History SDKS 2021-01-21 2021-01-21 1 [facility] Alcohol Frequency 00:00:00 00:00:00 Sex [birth year] [facility] Lauren phil 00:00:00 [facility]:00 [facility] Smoking Status Start Date Stop Date Source Tobacco [facility] Medications Ordered Filled Start Stop Current Ordering Indication Dosage Frequency Signature Comments Components Source Medication Medication Date Date Medication? Clinician (SIG) Name Name Taco 2021-06 Yes [id number] 40U QD Inject 40 UT FlexTouch 2-27 Units Health 100 UNIT/ML 00:00: under the injection 00 skin 1 (one) time each day. Semaglutide 2021-06 Yes [id number] 1mg Inject 1 UT , 1 2-27 mg under Health MG/DOSE, 00:00: the skin 1 (Ozempic, 1 00 (one) time MG/DOSE,) 4 per week. MG/3ML solution pen-injecto r insulin 2021-06- Yes [id number] 22U Inject 22 UT aspart 2-27 12-28 Units Health (NovoLOG) 00:00: 05:59 under the 100 UNIT/ML 00 :00 skin in injection the morning and 22 Units at noon and 22 Units in the evening. Inject with meals. OneTouch 2021-06 Yes [id number] TESTING 3 UT Verio test 2-23 TIMES Health strip 00:00: DOLLY;Y 00 Carboxymeth 2021-06- No Administer UT ylcellulose 06-14 into Health Sodium (EYE 14:43: 00:00 affected DROPS OP) 51 :00 eye(s). Calcium 2021-06 QD Take by UT Carbonate 06-14 mouth 1 Health Antacid 14:43: 00:00 (one) time (TUMS E-X 48 :00 each day. PO) fenofibrate 2021-06 Yes 1 (one) UT (Tricor) 54 1-03 time each Hea lth MG tablet 14:35: day at the 08 same time. fenofibrate 2021-06 Yes 1 (one) UT (Tricor) 54 1-03 time each Hea lth MG tablet 14:35: day at the 08 same time. tolterodine 2021-06 Yes TAKE 1 UT LA (Detrol 06-14 CAPSULE Health LA) 4 MG 24 14:33: DAILY hr capsule 14 Sennosides- 2021-06 Yes QD Take by UT Docusate 06-14 mouth 1 Health Sodium 14:33: (one) time (STOOL 14 each day. SOFTENER/LA XATIVE PO) traMADol 2021-06 Yes 50mg Q.[id number] Take 50 mg UT (Ultram) 50 06-14 [id number] by mouth 3 Health MG tablet 14:33: [...] 06-14 [facility] 14:33: Eye GTTS 14 tolterodine 2021-06 Yes TAKE 1 UT LA (Detrol -03 CAPSULE Health LA) 4 MG 24 14:33: DAILY hr capsule 14 Sennosides- 2021-06 Yes QD Take by UT Docusate 1-03 mouth 1 Health Sodium 14:33: (one) time (STOOL 14 each day. SOFTENER/LA XATIVE PO) traMADol 2021-06 Yes 50mg Q.[id number] Take 50 mg UT (Ultram) 50 -03 [id number] by mouth 3 Health MG tablet 14:33: 3D (three) 14 times a day. valsartan 2021-06 Yes 320mg QD Take 320 UT (Diovan) 1-03 mg by Health 160 MG 14:33: mouth 1 tablet 14 (one) time each day. tiZANidine 2021-06 Yes 4mg Q.5D Take 4 mg UT (Zanaflex) 1-03 by mouth 2 Hea lth 4 MG 14:33: (two) capsule 14 times a day. furosemide 2021-06 Yes 40mg QD Take 40 mg U T (Lasix) 40 1-03 by mouth 1 Hea lth MG tablet 14:33: (one) time 14 each day. bimatoprost 2021-06 Yes 1[drp] 1 drop UT (Lumigan) 1-03 every Health 0.01 % 14:33: night. ophthalmic 14 solution gabapentin 2021-06 Yes 300mg Take 300 UT (Neurontin) 1-03 mg by Health 300 MG 14:33: mouth. capsule 14 UNABLE TO 2021-06 Yes Med Name: UT FIND - [facility] 14:33: Eye GTTS 14 hydroxychlo 2021-063- No [id number] 200mg QD Take 1 UT roquine 06-14 01-03 tablet Health (Plaquenil) 00:00: 05:59 (200 mg 200 MG 00 :00 total) by tablet mouth 1 (one) time each day. hydroxychlo 2021-06- No [id number] 200mg QD Take 1 UT roquine 06-14 tablet Health (Plaquenil) 00:00: 05:59 (200 mg 200 MG 00 :00 total) by tablet mouth 1 (one) time each day. Levemir Yes [id number] 45U QD Inject 45 UT FlexTouch 9-27 Units Health 100 UNIT/ML 00:00: under the injection 00 skin 1 (one) time each day. semaglutide Yes [id number] .5mg Inject 0.5 UT (Ozempic) 2 9-27 mg under Heal th MG/1.5ML 00:00: the skin 1 solution 00 (one) time pen-injecto per week. r Levemir Yes [id number] 45U QD Inject 45 UT FlexTouch 9-27 Units Health 100 UNIT/ML 00:00: under the injection 00 skin 1 (one) time each day. semaglutide Yes [id number] .5mg Inject 0.5 UT (Ozempic) 2 9-27 mg under Heal th MG/1.5ML 00:00: the skin 1 solution 00 (one) time pen-injecto per week. r insulin 2022- No [id number] 15U Inject 15 UT aspart 9-27 09-28 Units Health (NovoLOG) 00:00: 04:59 under the 100 UNIT/ML 00 :00 skin in injection the morning and 15 Units at noon and 15 Units in the evening. Inject with meals. insulin 2022- No [id number] 15U Inject 15 UT aspart 9-27 09-28 Units Health (NovoLOG) 00:00: 04:59 under the 100 UNIT/ML 00 :00 skin in injection the morning and 15 Units at noon and 15 Units in the evening. Inject with meals. insulin 2021- No [id number] 15U Inject 15 UT aspart 9-27 12-27 Units Health (NovoLOG) 00:00: 00:00 under the 100 UNIT/ML 00 :00 skin in injection the morning and 15 Units at noon and 15 Units in the evening. Inject with meals. Levemir 2021- No [id number] 45U QD Inject 45 UT FlexTouch 9-27 12-27 Units Health 100 UNIT/ML 00:00: 00:00 under the injection 00 :00 skin 1 (one) time each day. semaglutide 2021- No [id number] .5mg Inject 0.5 UT (Ozempic) 2 9-27 12-27 mg under Hea lth MG/1.5ML 00:00: 00:00 the skin 1 solution 00 :00 (one) time pen-injecto per week. r hydroCHLORO Yes UT thiazide 8-30 Health (Microzide) 00:00: 12.5 MG 00 capsule hydroCHLORO Yes UT thiazide 8-30 Health (Microzide) 00:00: 12.5 MG 00 capsule Levemir Yes [id number] 40U QD Inject 40 UT FlexTouch 8-16 Units Health 100 UNIT/ML 00:00: under the injection 00 skin 1 (one) time each day. insulin 2022- No [id number] 12U Inject 12 UT aspart 8-16 08-17 Units Health (NovoLOG) 00:00: 04:59 under the 100 UNIT/ML 00 :00 skin in injection the morning and 12 Units at noon and 12 Units in the evening. Inject with meals. Levemir 2021- No [id number] 40U QD Inject 40 UT FlexTouch 8-16 09-27 Units Health 100 UNIT/ML 00:00: 00:00 under the injection 00 :00 skin 1 (one) time each day. insulin 2021- No [id number] 12U Inject 12 UT aspart 8-16 09-27 Units Health (NovoLOG) 00:00: 00:00 under the 100 UNIT/ML 00 :00 skin in injection the morning and 12 Units at noon and 12 Units in the evening. Inject with meals. pantoprazol Yes 1{tbl} 1 tablet. UT e 7-25 Health (ProtoNix) 00:00: 40 MG EC 00 tablet pantoprazol Yes 1{tbl} 1 tablet. UT e 7-25 Health (ProtoNix) 00:00: 40 MG EC 00 [...] [facility] 10:25: Eye GTTS 09 gabapentin 0 Yes 300mg Take 300 UT [...] 300 MG 10:22: mouth. capsule 41 tolterodine Yes TAKE 1 UT LA (Detrol 12-30 CAPSULE Health LA) 4 MG 24 10:15: DAILY hr capsule 23 Sennosides- 2021-0 Yes QD Take by UT Docusate 12-30 mouth 1 Health Sodium 10:15: (one) time (STOOL 23 each day. SOFTENER/LA XATIVE PO) traMADol 0 Yes 50mg Q.[id number] Take 50 mg UT (Ultram) 50 12-30 [id number] by mouth 3 Health MG tablet 10:15: [...] 2022-0 Yes 1[drp] 1 drop UT (Lumigan) - every Health 0.01 % 10:15: night. ophthalmic 23 solution tolterodine 2022-0 Yes TAKE 1 UT LA (Detrol - CAPSULE Health LA) 4 MG 24 10:15: DAILY hr capsule 23 Sennosides- 2-0 Yes QD Take by UT Docusate - mouth 1 Health Sodium 10:15: (one) time (STOOL 23 each day. SOFTENER/LA XATIVE PO) traMADol 2022-0 Yes 50mg Q.[id number] Take 50 mg UT (Ultram) 50 - [id number] by mouth 3 Health MG tablet 10:15: [...] (TUMS E-X 23 each day. PO) bimatoprost 2-0 Yes 1[drp] 1 drop UT (Lumigan) 7-21 every Health 0.01 % 10:15: night. ophthalmic 23 solution tolterodine 2021-0 Yes TAKE 1 UT LA (Detrol 7-21 CAPSULE Health LA) 4 MG 24 10:15: DAILY hr capsule 23 Sennosides- 2021-0 Yes QD Take by UT Docusate 7-21 mouth 1 Health Sodium 10:15: (one) time (STOOL 23 each day. SOFTENER/LA XATIVE PO) traMADol 2-0 Yes 50mg Q.[id number] Take 50 mg UT (Ultram) 50 7- [id number] by mouth 3 Health MG tablet 10:15: [...] 2021-0 Yes QD Take by UT Carbonate 7- mouth 1 Health Antacid 10:15: (one) time (TUMS E-X 23 each day. PO) bimatoprost 2021-0 Yes 1[drp] 1 drop UT (Lumigan) 7-21 every Health 0.01 % 10:15: night. ophthalmic 23 solution tolterodine 2021-0 Yes TAKE 1 UT LA (Detrol 7-21 CAPSULE Health LA) 4 MG 24 10:15: DAILY hr capsule 23 Sennosides- 2021-0 Yes QD Take by UT Docusate 7-21 mouth 1 Health Sodium 10:15: (one) time (STOOL 23 each day. SOFTENER/LA XATIVE PO) traMADol 2-0 Yes 50mg Q.[id number] Take 50 mg UT (Ultram) 50 7-21 [id number] by mouth 3 Health MG tablet 10:15: 3D (three) 23 times a day. valsartan 2022-0 Yes 320mg QD Take 320 UT (Diovan) 7-21 mg by Health 160 MG 10:15: mouth 1 tablet 23 (one) time each day. tiZANidine 2022-0 Yes 4mg Q.5D Take 4 mg UT (Zanaflex) - by mouth 2 Hea lth 4 MG 10:15: (two) capsule 23 times a day. furosemide 2022-0 Yes 40mg QD Take 40 mg U T (Lasix) 40 - by mouth 1 Hea lth MG tablet 10:15: (one) time 23 each day. Calcium 2021-0 Yes QD Take by UT Carbonate 12-30 mouth 1 Health Antacid 10:15: (one) time (TUMS E-X 23 each day. PO) bimatoprost 2021-0 Yes 1[drp] 1 drop UT (Lumigan) 12-30 every Health 0.01 % 10:15: night. ophthalmic 23 solution Cholecalcif 2021-0 Yes UT maya 18 Health (Vitamin 00:00: D3) 1.25 MG 00 (88407 UT) capsule hydrALAZINE 2021-0 Yes UT (Apresoline 12-27 Health ) 25 MG 00:00: tablet 00 Cholecalcif 202-0 Yes UT maya 12-27 Health (Vitamin 00:00: D3) 1.25 MG 00 (06130 UT) capsule hydrALAZINE 2022-0 Yes UT (Apresoline 12-27 Health ) 25 MG 00:00: tablet 00 Cholecalcif 2022-0 Yes UT maya 18 Health (Vitamin 00:00: D3) 1.25 MG 00 (91261 UT) capsule hydrALAZINE 2022-0 Yes UT (Apresoline 12-27 Health ) 25 MG 00:00: tablet 00 Cholecalcif 2022-0 Yes UT maya 718 Health (Vitamin 00:00: D3) 1.25 MG 00 (62204 UT) capsule hydrALAZINE 2022-0 Yes UT (Apresoline 718 Health ) 25 MG 00:00: tablet 00 Cholecalcif 2022-0 Yes UT maya 7-18 Health (Vitamin 00:00: D3) 1.25 MG 00 (76572 UT) capsule hydrALAZINE 2021-0 Yes UT (Apresoline -18 Health ) 25 MG 00:00: tablet 00 Cholecalcif 0 Yes UT maya -18 Health (Vitamin 00:00: D3) 1.25 MG 00 (00317 UT) capsule hydrALAZINE 0 Yes UT (Apresoline -18 Health ) 25 MG 00:00: tablet 00 glucose 2021-0 Yes [id number] TEST THREE UT blood 7-15 TIMES A Health (OneTouch 00:00: DAY Verio) test 00 strip glucose 2021-0 Yes [id number] TEST THREE UT blood 7-15 TIMES A Health (OneTouch 00:00: DAY Verio) test 00 strip glucose 2021-0 Yes [id number] TEST THREE UT blood 7-15 TIMES A Health (OneTouch 00:00: DAY Verio) test 00 strip glucose 2-0 Yes [id number] TEST THREE UT blood 7-15 TIMES A Health (OneTouch 00:00: DAY Verio) test 00 strip glucose 2-0 Yes [id number] TEST THREE UT blood 7-15 TIMES A Health (OneTouch 00:00: DAY Verio) test 00 strip glucose 2-0 Yes [id number] TEST THREE UT blood 7-15 TIMES A Health (OneTouch 00:00: DAY Verio) test 00 strip dapaglifloz 0 Yes 10mg Take 10 mg Univers in 708 by mouth ity of (FARXIGA) 02:53: daily. [place] 10 mg 01 Medical tablet Branch dulaglutide 0 Yes inject Univ ers (TRULICITY) 7-08 under the ity of 0.75 mg/0.5 02:53: skin [place] mL PnIj 01 weekly. Medical Branch insulin 0 Yes 40U inject 40 Unive rs aspart 7-08 Units ity of (NOVOLOG 02:53: [place] the [place] FLEXPEN 01 skin every Medica l U-100 morning. Branch INSULIN SC) insulin 0 Yes 30U inject 30 Unive rs aspart [...] Yes 1{tbl} Take 1 Un shayna in 708 tablet by ity of (JARDIANCE) 02:53: mouth [...] Yes 1{tbl} Take 1 Un shayna in 08 tablet by ity of (JARDIANCE) 02:53: mouth [...] 01 (two) Medical times Branch daily. empaglifloz 2022-0 Yes 1{tbl} Take 1 Un shayna in 12-17 tablet by ity of (JARDIANCE) 02:53: mouth [place] 25 mg Tab 01 daily. Medical Branch foLIC acid 2021- No [id number] 4mg Take 4 Univers 1 mg tablet 12-16 tablets by i ty of 00:00: 04:59 mouth [place] 00 :00 daily for Medical 30 days. Branch foLIC acid 2021- No [id number] 4mg Take 4 Univers 1 mg tablet 12-16 tablets by i ty of 00:00: 04:59 mouth [place] 00 :00 daily for Medical 30 days. Branch foLIC acid 2021- No [id number] 4mg Take 4 Univers 1 mg tablet 12-16 tablets by i ty of 00:00: 04:59 mouth [place] 00 :00 daily for Medical 30 days. Branch foLIC acid 2021- No [id number] 4mg Take 4 Univers 1 mg tablet 12-16 tablets by i ty of 00:00: 04:59 mouth [place] 00 :00 daily for Medical 30 days. Branch foLIC acid 2021- No [id number] 4mg Take 4 Univers 1 mg tablet 12-16 tablets by i ty of 00:00: 04:59 mouth [place] 00 :00 daily for Medical 30 days. Branch LEVOTHYROXI Yes None Univer s NE 200 MCG 12-15 Entered ity of ORAL TAB 14:54: [place] [address] Medical Branch CALCITRIOL Yes None Univers 0.5 MCG 12-15 Entered ity of ORAL CAP 14:54: [place] [address] Medical Branch FOLTRIN Yes None Univers ORAL 12-15 Entered ity of 14:54: [place] [address] Medical Branch AMLODIPINE Yes None Univers BESYLATE 12-15 Entered ity of ORAL 14:54: [place] [address] Medical Branch dapaglifloz Yes 10mg Take 10 mg Univers in 12-15 by mouth ity of (FARXIGA) 14:54: daily. [place] 10 mg 28 Medical tablet Branch dulaglutide Yes inject Univ ers (TRULICITY) 12-15 under the ity of 0.75 mg/0.5 14:54: [...] Yes 1{capsu Take 1 Uni vers acid - le} capsule by ity of (CHOLEBRINE 14:54: [...] 7- Entered ity of ORAL TAB 14:54: Medical Branch CALCITRIOL Yes None Univers 0.5 MCG 7- Entered ity of ORAL CAP 14:54: [place] [facility] FOLTRIN Yes None Univers ORAL 7- Entered ity of 14:54: [place] [address] Medical Branch AMLODIPINE Yes None Univers BESYLATE 7-06 Entered ity of ORAL 14:54: 28 Medical Branch dapaglifloz Yes 10mg Take [...] Yes 1{tbl} Take 1 Un shayna in 7-06 tablet by ity of (JARDIANCE) 14:54: mouth [place] 25 mg Tab 28 daily. Medical Branch LEVOTHYROXI Yes None Univer s NE 200 MCG 7-06 Entered ity of ORAL TAB 14:54: Medical Branch CALCITRIOL Yes None Univers 0.5 MCG 7-06 Entered ity of ORAL CAP 14:54: Medical Branch FOLTRIN 0 Yes None Univers ORAL 7-06 Entered ity of 14:54: Medical Branch AMLODIPINE 0 Yes None Univers BESYLATE 7-06 Entered ity of ORAL 14:54: Medical Branch LEVOTHYROXI Yes None Univer s NE 200 MCG 7-06 Entered ity of ORAL TAB 14:54: Medical Branch CALCITRIOL Yes None Univers 0.5 MCG 12-15 Entered ity of ORAL CAP 14:54: [address] FOLTRIN Yes None Univers ORAL 12-15 Entered ity of 14:54: [address] AMLODIPINE Yes None Univers BESYLATE 12-15 Entered ity of ORAL 14:54: [address] LEVOTHYROXI Yes None Univer s NE 200 MCG 12-15 Entered ity of ORAL TAB 14:54: [address] CALCITRIOL Yes None Univers 0.5 MCG 12-15 Entered ity of ORAL CAP 14:54: [address] FOLTRIN Yes None Univers ORAL 12-15 Entered ity of 14:54: [address] AMLODIPINE Yes None Univers BESYLATE 12-15 Entered ity of ORAL 14:54: [address] pantoprazol Yes 40mg 40 mg, Univ ers e 12-15 Oral, ity of (PROTONIX) 14:45: DAILY, [place] EC tablet 00 First dose Medi abdon 40 mg on Mon12/15/21 at 0945, Until Discontinu ed, Routine insulin Yes 5U 5 Units, Univer s lispro 12-15 Subcutaneo ity of (human) 13:00: us, TID [place] (HumaLOG 00 MEALS, Medical U-100) First dose Branch injection 5 (after Units last modificati on) on Mon12/15/21 at 0800, Until Discontinu ed, Routine PREDNISONE 2021- No None Univer s 10 MG ORAL 12-15 Entered ity o f TAB 11:40: 00:00 [place] 13 :00 [facility] Branch HYDROCHLORO 2021- No None Unive rs THIAZIDE 25 12-15 Entered ity of MG ORAL TAB 11:40: 00:00 [place] 13 :00 [facility] Branch METHOTREXAT 2021- No None Unive rs E SODIUM 12-15 Entered ity of 2.5 MG ORAL 11:40: 00:00 [place] TAB 13 :00 [facility] Branch FOLIC ACID 2021- No None Univer s 1 MG ORAL 12-15 Entered ity of TAB 11:40: 00:00 [place] 13 :00 [facility] METFORMIN 2021- No None Univers 500 MG ORAL 12-15 Entered ity of TAB 11:40: 00:00 [place] 13 :00 Medical Branch ENALAPRIL 2021- No None Univers MALEATE 20 12-15 Entered ity o f MG ORAL TAB 11:40: 00:00 [place] 13 :00 Medical Branch HYDROXYCHLO 2021- No None Unive rs ROQUINE 200 12-15 Entered ity of MG ORAL TAB 11:40: 00:00 [place] 13 :00 Medical Branch losartan-hy 2021- No 1{tbl} Take 1 [...] at 1999, Until Discontinu ed, Routine pantoprazol 2021- No 40mg 40 mg, Uni vers e [...] metoprolol Yes 12.5mg Take 12.5 UT tartrate -06 mg by Health (Lopressor) 00:00: mouth. 25 MG 00 tablet metoprolol 2022-0 Yes 12.5mg Take 12.5 UT tartrate 7-06 mg by Health (Lopressor) 00:00: mouth. 25 MG 00 tablet metoprolol 2021-0 Yes 12.5mg Take 12.5 UT tartrate 7-06 mg by Health (Lopressor) 00:00: mouth. 25 MG 00 tablet metoprolol 2021-0 Yes 25mg Q.5D Take 25 mg U T tartrate 7-06 by mouth Health (Lopressor) 00:00: in the 25 MG 00 morning tablet and 25 mg in the evening. metoprolol 2021-0 Yes 25mg Q.5D Take 25 mg U T tartrate 7-06 by mouth Health (Lopressor) 00:00: in the 25 MG 00 morning tablet and 25 mg in the evening. Levemir 2021- No 40U QD Inject 40 UT FlexTouch 12-15 08-16 Units [facility] 100 UNIT/ML 00:00: 00:00 under the injection 00 :00 skin 1 (one) time each day. metoprolol 2021- No 12.5mg Take 12.5 UT tartrate 12-15 08-06 mg by Health (Lopressor) 00:00: 04:59 mouth. 25 MG 00 :00 tablet pantoprazol 2021- No 1{tbl} QD Take 1 U T e 12-15- tablet by [facility] (ProtoNix) 00:00: 04:59 mouth 1 40 MG EC 00 :00 (one) time tablet each day. pantoprazol 2021- No [id number] 40mg Take 1 Univers e 40 mg EC 12-15- tablet by ity of tablet 00:00: 04:59 mouth [place] 00 :00 daily for Medical 30 days. Dori metoprolol 2021- No [id number] 12.5mg Take 0.5 Univers tartrate 25 12-15-06 tablets by i ty of mg tablet 00:00: 04:59 mouth 2 [place] 00 :00 (two) Medical times Dori daily for 30 days. pantoprazol 2021-2021- No [id number] 40mg Take 1 Univers e 40 mg EC 12-15- tablet by ity of tablet 00:00: 04:59 mouth [place] 00 :00 daily for Medical 30 days. Dori metoprolol 2021- No [id number] 12.5mg Take 0.5 Univers tartrate 25 12-15- tablets by i ty of mg tablet 00:00: 04:59 mouth 2 [place] 00 :00 (two) Medical times Branch daily for 30 days. Insulin 2021- No [id number] 12U inject 12 Univers Detemir 12-15-06 Units ity of (LEVEMIR 00:00: 04:59 under the [place]in as FLEXTOUCH 00 :00 skin 2 Medical U-100 (two) Branch INSULN) 100 times unit/mL (3 daily for mL) 30 days. injection pantoprazol 2021- No [id number] 40mg Take 1 Univers e 40 mg EC 12-15- tablet by ity of tablet 00:00: 04:59 mouth [place] 00 :00 daily for Medical 30 days. Branch metoprolol 2021- No [id number] 12.5mg Take 0.5 [facility] tartrate 25 12-15- tablets by i ty of mg tablet 00:00: 04:59 [place] 2 [place] 00 :[place] (two) Medical times [place] daily for 30 days. Insulin 2021- No [id number] 12U inject 12 [facility] Detemir 12-15- Units ity of (LEVEMIR 00:00: 04:59 under the [place] FLEXTOUCH 00 :00 skin 2 Medical U-100 (two) Branch INSULN) 100 times unit/mL (3 daily for mL) 30 days. injection pantoprazol 2021- No [id number] 40mg Take 1 Univers e 40 mg EC 12-15- tablet by ity of tablet 00:00: 04:59 mouth [place] 00 :00 daily for Medical 30 days. Branch metoprolol 2021- No [id number] 12.5mg Take 0.5 [facility] tartrate 25 12-15- tablets by i ty of mg tablet 00:00: 04:59 [place] 2 [place] 00 :[place] (two) Medical times Branch daily for 30 days. Insulin 2021- No [id number] 12U inject 12 [facility] Detemir 12-15-06 Units ity of (LEVEMIR 00:00: 04:59 under the [place] FLEXTOUCH 00 :00 skin 2 Medical U-100 (two) Branch INSULN) 100 times unit/mL (3 daily for mL) 30 days. injection pantoprazol No [id number] 40mg Take 1 Univers e 40 mg EC 12-15 tablet by ity of tablet 00:00: 04:59 mouth [place] 00 :00 daily for Medical 30 days. Branch metoprolol 2021- No [id number] 12.5mg Take 0.5 [facility] tartrate 25 12-15 tablets by i ty of mg tablet 00:00: 04:59 mouth 2 [place] 00 :[place] (two) Medical times Branch daily for 30 days. Insulin 2021- No [id number] 12U inject 12 [facility] Detemir 12-15 Units ity of (LEVEMIR 00:00: 04:59 under the [place] FLEXTOUCH 00 :00 skin 2 Medical U-100 (two) Branch INSULN) 100 times unit/mL (3 daily for mL) 30 days. injection lidocaine No [id number] 10mL Take 10 mL Univers 2% viscous 12-15 by mouth ity of 2 % 00:00: 04:59 every 6 [place] solution 00 :00 (six) Medical hours as Branch needed for Oral mucosal pain for up to 7 days. maalox:diph No [id number] 15mL Swish and Univers enhydrAMINE 12-15 spit out ity of :lidocaine 00:00: 04:59 15 mL 4 [place] 2 % viscous 00 :00 (four) Medica l 1:1:1 times Branch daily for 7 days. lidocaine 2021- No [id number] 10mL Take 10 mL Univers 2% viscous 12-15 by mouth ity of 2 % 00:00: 04:59 every 6 [place] solution 00 :00 (six) Medical hours as Branch needed for Oral mucosal pain for up to 7 days. maalox:diph No [id number] 15mL Swish and Univers enhydrAMINE 12-15 spit out ity of :lidocaine 00:00: 04:59 15 mL 4 [place] 2 % viscous 00 :00 (four) Medica l 1:1:1 times Branch daily for 7 days. lidocaine 2021- No [id number] 10mL Take 10 mL Univers 2% viscous 12-15 by mouth ity of 2 % 00:00: 04:59 every 6 [place] solution 00 :00 (six) Medical hours as Branch needed for Oral mucosal pain for up to 7 days. maalox:diph 2021- No [id number] 15mL Swish and Univers enhydrAMINE 12-15 spit out ity of :lidocaine 00:00: 04:59 15 mL 4 [place] 2 % viscous 00 :00 (four) Medica l 1:1:1 times Branch daily for 7 days. calcium 2g 2 g, IV Univer s gluconate 2 12-14 Infusion, it y of g in NaCl 19:45: 22:36 Administer [place] 100 mL 00 :00 over 2 Medical (ISO-OSM) Hours, Branch RTU IV ONCE, 1 infusion 2 dose, On g Mon12/14/21 at 1445, Routine furosemide No 40mg 40 mg, Univ ers (LASIX) 12-14 Slow IV ity of injection 04:15: 03:49 [place], [place] 40 mg 00 :00 ONCE, 1 Medical dose, On Branch Mon12/13/21 at 2315, Routine insulin 2021- No 10U 10 Units, Univ ers glargine 12-14 Subcutaneo ity of (LANTUS 01:00: 22:45 us, BID, [place] U-100) 00 :25 First dose Medical injection (after Branch 10 Units last modificati on) on Mon12/13/21 at 2000, Until Discontinu ed, Routine insulin 2021- No 4U 4 Units, [facility] 12-13 Subcutaneo ity of (human) 22:00: 22:45 us, TID [place] (HumaLOG 00 :25 MEALS, Medical U-100) First dose Branch injection 4 (after Units last modificati on) on Mon12/13/21 at 1700, Until Discontinu ed, Routine insulin No 15U 15 Units, Univ ers glargine 12-13 Subcutaneo ity of (LANTUS 14:00: 16:27 us, DAILY, [place] U-100) 00 :22 First dose Medical injection (after Branch 15 Units last modificati on) on 12/13/21 at 0900, Until Discontinu ed, Routine calcium [...] Branch 18 Units last modificati on) on [place] 12/12/21 at 0900, Until Discontinu ed, Routine insulin 15U 15 Units, Univ ers glargine 12-12 Subcutaneo ity of (LANTUS 01:00: 16:27 [place], Q24H, [place] U-100) 00 :22 First dose Medical injection (after Branch 15 Units last modificati on) on [facility] 12/11/21 at 2000, Until Discontinu ed, Routine morpHINE [...] 2021- No 1000mg 1,000 mg, Univers (VANCOCIN) 12-11 IV ity of 1,000 mg in 00:30: 02:54 Piggyback, [place] NaCl 0.9% 00 :00 ONCE, 1 Medical (NS) 250 mL dose, On Bran ch VIAL-MATE Mon12/10/21 IV at 1930, piggyback Administer over 60 Minutes, 250 mL
Reas on for Anti-Infec tive: Empiric Therapy for Suspected Infection< br>Empiric Therapy Site: Blood
D uration of therapy: 7 days Sliding Yes Subcutaneo [facility] ers Scale 12-10 us, TID ity of Insulin - 22:00: MEALS+HS, [place] Lispro 00 First dose Medical (HumaLOG) + (after Branch Fsbg last Testing modificati on) on Mon12/10/21 at 1700, Until Discontinu ed, Routine insulin 2021- No 8U 8 Units, [facility] rs lispro 12-10 Subcutaneo ity of (human) 22:00: 16:27 us, TID [place] (HumaLOG 00 :22 MEALS, Medical U-100) First dose Branch injection 8 (after Units last modificati on) on Mon12/10/21 at 1700, Until Discontinu ed, Routine sulfur 2021- No [id number] 5mL 5 mL, [facility] rs hexafluorid 12-10 Intravenou i ty of e microsphr 17:00: 17:00 s, ONCE, 1 [place] (LUMASON) 00 :00 dose, On Medica l injection 5 Mon12/10/21 Br anch mL at 1200, Routine
clergy member approving Restricted medication : MARTHA INGRAM insulin 2021- No 20U 20 Units, [facility] ers glargine 12-10 Subcutaneo ity of (LANTUS 14:00: 19:29 us, DAILY, [place] U-100) 00 :04 First dose Medical injection (after Branch 20 Units last modificati on) on Mon12/10/21 at 0900, Until Discontinu ed, Routine D5W 0.9% No 1000mL at 60 Unive rs NaCl (NS) 12-10 0703 mL/hr, ity of IV infusion 09:30: 13:34 [...] ity of 1,000 mg in 21:15: 18:10 Piggyback, [place] NaCl 0.9% 00 :47 Q24H ABX, Medic al (NS) 250 mL First dose Br anch VIAL-MATE on Ana IV 12/09/21 at piggyback 1615, Until Discontinu ed, Administer over 60 Minutes, 250 mL
Reas on for Anti-Infec tive: Empiric Therapy for Suspected Infection& lt;br>Empi jack Therapy Site: Blood
D uration of therapy: 7 days digoxin 2021- No 500ug 500 mcg, Univ ers (LANOXIN) [...] 1 Medical 1,000 mg in dose, On [facility] NaCl 0.9% [place] (NS) 150 mL 12/09/21 at piggyback 0630, Administer over 60 Minutes, 150 mL traMADoL No 50mg 50 mg, Univer s (ULTRAM) 12-09 Oral, ity of tablet 50 07:45: 08:47 ONCE, 1 [place] mg 00 :00 dose, On Medical [place] Branch 12/09/21 at 0245, Routine insulin 2021- No 9U 9 Units, Unive rs lispro 12-08 Subcutaneo ity of (human) 22:00: 19:29 , TID [place] (HumaLOG 00 :04 MEALS, Medical U-100) First dose Branch injection 9 (after Units last modificati on) on Mon12/08/21 at 1700, Until Discontinu ed, Routine meropenem 2021- No 1000mg 1,000 mg, Univers (MERREM) 12-0804 IV ity of 1,000 mg in 21:00: 13:42 [facility], [place] NaCl 0.9% 00 :20 Q12H ABX, Medic al (NS) 50 mL First dose [facility] MINI-BAG on 12/08/21 at 1600, Until Discontinu ed, Administer over [...] 00 :00 dose, On Medica l mg Mon Branch 12/08/21 at 1300, Routine insulin 2021- [...] ity of 1,000 mg in 20:30: 22:54 [place], [place] NaCl 0.9% 00 :00 ONCE, 1 [...] ity of (human) 17:00: 18:05 us, TID [place] (HumaLOG 00 :09 MEALS, Medical U-100) First [...] 00 :00 1 dose, On Medical injection [facility] Branch 15 Units 12/07/21 at 0900, Routine insulin 2021- No 2U 2 Units, Unive rs lispro 12-07 Subcutaneo ity of (human) 13:00: 15:18 us, TID [place] (HumaLOG 00 :44 MEALS, Medical U-100) First dose Branch injection 2 (after Units last modificati on) on [facility] 12/07/21 at 0800, Until Discontinu ed, Routine KCL No 20meq 20 mEq, Univers (KLOR-CON 12-07 Oral, ity of M20) tablet 07:30: 06:40 ONCE, 1 [place] 20 mEq 00 :00 dose, On Medical [facility] 12/07/21 at 0230, Routine calcium No 2g 2 g, IV Univer s gluconate 2 12-07 Infusion, it y of g in NaCl 06:30: 08:50 ONCE, 1 [place] 100 mL 00 :00 dose, On Medical (ISO-OSM) [facility] RTU IV 12/07/21 at infusion 2 0130, g Routine acetaminoph No 650mg 650 mg, U nivers en 12-07 Oral, ity of (TYLENOL) 05:30: 06:38 ONCE, 1 [place] tablet 650 00 :00 dose, On Medic al mg [facility] 12/07/21 at 0030, Routine traMADoL Yes 50mg 50 mg, Univers (ULTRAM) 12-07 Oral, ity of tablet 50 02:58: Q6HPRN, [place] mg 00 Starting Medical on Mon [place] 12/06/21 at 2158, Until Discontinu ed, Routine, Pain (scale 4-6) calcium 2021- No 1g 1 g, IV Univer s gluconate 1 12-07 Infusion, it y of g in NaCl 00:30: 01:37 Administer [place] 50 mL 00 :00 over 60 Medical (ISO-OSM) Minutes, Branch RTU IV ONCE, 1 infusion 1 dose, On g [facility] 12/06/21 at 1930, Routine insulin 2021- No 15U 15 Units, Univ ers glargine 12-06 Subcutaneo ity of (LANTUS 23:26: 23:41 us, ONCE, [place] U-100) 00 :00 1 dose, On Medical injection Mon Branch 15 Units 12/06/21 at 1830, ALEXYS vancomycin No 1000mg 1,000 mg, Univers (VANCOCIN) 12-06 IV ity of 1,000 mg in 22:30: 00:02 [place], [place] NaCl 0.9% 00 :00 ONCE, 1 [...] ONCE, 1 infusion 1 dose, On g 12/06/21 at 1145, Routine potassium No 20meq 20 mEq, IV Univers chloride 20 12-06 Piggyback, i ty of mEq/100 mL 15:45: 21:09 Q2H ES, 2 [place] (KCL) 20 00 :00 doses, Medical mEq/100 mL First dose [facility] RTU IVPB 20 on [facility] mEq 12/06/21 at 1045, Last dose on Mon12/06/21 at 1245, 100 mL pantoprazol No 40mg 40 mg, Uni vers e 12-06 07-05 Slow IV ity of (PROTONIX) 13:00: 14:59 Push, [place] injection 00 :57 Q12H, Medical 40 mg First dose Branch on [facility] 12/06/21 at 0800, Until Discontinu ed calcium No 2g 2 g, IV Univer s gluconate 2 12-06 Infusion, it y of g in NaCl 09:00: 08:39 ONCE, 1 [place] 100 mL 00 :00 dose, On Medical (ISO-OSM) [facility] Branch RTU IV 12/06/21 at infusion 2 0400, g Routine ceFEPIme 2021- No 1000mg 1,000 mg, U nivers (MAXIPIME) 12-06 IV ity of 1,000 mg in 06:30: 20:[facility] [place] NaCl 0.9% 00 :12 Q12H ABX, Medic al (NS) 50 mL First dose [facility] MINI-BAG on 12/06/21 at 0130, Until Discontinu ed, Administer over 4 Hours, 50 mL
Reas on for Anti-Infec tive: Empiric Therapy for Suspected Infection< br>Empi jack Therapy Site: Blood
D uration of therapy: 7 days hydrocortis 2021- No 100mg 100 mg, U nivers one sod 12-06 Intravenou ity o f succ 03:06: 03:28 s, ONCE, 1 [place] (CORTEF) 00 :00 dose, On Medical injection [place] Branch 100 mg 12/05/21 at 2215, 2 mL maalox:diph Yes 15mL 15 mL, Univ ers enhydrAMINE 12-06 Oral ity of :lidocaine 01:15: ([place] And [place] 2 % viscous 00 Spit Out), Me dical 1:1:1 QID, First Branch (FIRST-MOUT dose HWASH BLM) (after oral last suspension modificati 15 mL on) on [place] 12/05/21 at 2015, Until Discontinu ed, Routine acetaminoph 2021- No 975mg 975 mg, U nivers en 12-06 Oral, ONCE ity of (TYLENOL) 00:48: 01:21 NOW, 1 [place] tablet 975 00 :00 dose, On Medic al mg [place] Branch 12/05/21 at 2000, Routine vancomycin 2021- No 1250mg 1,250 mg, Univers 1250 mg in 12-05 IV ity of NS 250 mL 19:45: 17:54 [place]gyback, [place] RTU IV 00 :52 Q24H, Medical Piggyback First dose Bran ch 1,250 mg on [place] 12/05/21 at 1445, Until Discontinu ed, Administer over 90 Minutes, 250 mL
Reas on for Anti-Infec tive: Empiric Therapy for Suspected Infection< br>Empi jack Therapy Site: Blood
D uration of therapy: 7 days ceFEPIme 2021- No 1000mg 1,000 mg, U nivers (MAXIPIME) 12-05 IV ity of 1,000 mg in 19:30: 20:59 [facility] [place] NaCl 0.9% 00 :00 ONCE, 1 Medical (NS) 50 mL dose, On Branc h MINI-BAG [place] 12/05/21 at 1430, Administer over 30 Minutes, 50 mL
Reas on for Anti-Infec tive: Empiric Therapy for Suspected Infection< br>Empiric Therapy Site: Blood
D uration of therapy: 7 days insulin 2021- No 4U 4 Units, Unive rs lispro 12-05 Subcutaneo ity of (human) 14:15: 23:28 us, TID [place] (HumaLOG 00 :50 MEALS, Medical U-100) First dose Branch injection 4 (after Units last modificati on) on [place] 12/05/21 at 0915, Until Discontinu ed, Routine [...] Last dose on 12/06/21 at 0900, Routine
clergy member approving Restricted medication : NORM ABAD Sliding 2021- No Subcutaneo Uni vers Scale 12-03 us, Q4H, ity of Insulin - 01:00: 15:03 First dose [place] Lispro 00 :01 on Ana Medical (HumaLOG) + 12/02/21 at Br anch Fsbg 1999, Testing Until Discontinu ed, Routine cefTRIAXone 2021- No 1000mg 1,000 mg, Univers (ROCEPHIN) 12-02 IV ity of 1,000 mg in 20:00: 18:18 Piggyback, [place] NaCl 0.9% 00 :20 Q24H ABX, Medic al (NS) 50 mL First dose [facility] MINI-BAG on Ana 12/02/21 at 1500, Until [...] KIT) 19 Starting Medical injection 1 on Mon Branch mg 12/02/21 at 1122, Until Discontinu [...] 00 First dose Med ical mcg (after [place] last modificati on) on [place] 12/02/21 at [...] 1000mL at 250 Uni vers (NS) IV 12-01 mL/hr, ity of infusion 19:45: 18:41 1,000 [...] ity of infusion 19:39: 20:28 1,000 mL, [place] 1,000 mL 00 :00 IV Medical Piggyback, Branch ONCE, 1 dose, On Mon12/01/21 at 1445, STAT insulin 2021- No 10U 10 Units, Univ ers lispro 12-01 Subcutaneo ity of (human) 17:00: 00:09 us, TID [place] (HumaLOG 00 :36 MEALS, Medical U-100) First dose Branch injection on Mon 10 Units 12/01/21 at 1200, Until Discontinu ed, Routine insulin 2021- No 35U 35 Units, Univ ers glargine 12-01 Subcutaneo ity of (LANTUS 16:30: 00:09 us, Q24H, [place] U-100) 00 :36 First dose Medical injection on Mon Branch 35 Units 12/01/21 at 1130, Until Discontinu ed, Routine NaCl 0.9% No 1000mL at 100 Uni vers (NS) IV 12-01 mL/hr, IV ity of infusion 16:15: 18:41 Infusion, [place] 1,000 mL 00 :41 CONTINUOUS Medic al , Starting Branch on Mon12/01/21 at 1115, Until [place] 12/02/21 at 1341, Routine insulin No 10U 10 Units, Univ ers regular 12-01 Subcutaneo ity o f human 16:15: 15:14 , ONCE, [place] (HUMULIN R) 00 :00 1 dose, On Me dical injection Wed Branch 10 Units 12/01/21 at 1115, Routine NaCl 0.9% 2021- No 1000mL at 999 Uni vers (NS) bolus 12-01 mL/hr, ity of infusion 16:15: 15:25 1,000 mL, [place] 1,000 mL 00 :00 IV Medical Piggyback, Branch ONCE, 1 dose, On Mon12/01/21 at 1115, STAT levothyroxi No 200ug 200 mcg, Univers ne 12-01 Oral, ity of (SYNTHROID) 15:00: 23:14 QA-0600, [place] tablet 200 00 :47 First dose Med ical mcg (after Branch last modificati on) on Mon12/01/21 at 1000, Until Discontinu ed, Routine foLIC acid 2021- No 1mg 1 mg, Unive rs (FOLATE) 12-01 Oral, ity of tablet 1 mg 14:00: 18:20 DAILY, [place] 00 :28 First dose Medical on Wed Branch 12/01/21 at 0900, Until Discontinu ed, [...] 12-01 IV Push, ity of (PF)) 10:14: Q6F[place], [place] injection 4 46 Starting Medi abdon mg on Wed Branch 12/01/21 at 0514, Until Discontinu ed, Routine, Nausea and Vomiting (N/V) acetaminoph Yes 650mg 650 mg, Un shayna en 12-01 Oral, ity of (TYLENOL) 10:14: Q6RNAvoca, [place] tablet 650 36 Starting Medic al [...] 500 MG 00:00: tablet 00 naproxen 2021-0 202- No [facility] (Naprosyn) 11-27 11-03 Health 500 MG 00:00: 00:00 tablet 00 [...] Health 10 MG 00:00: capsule 00 naproxen 2021-0 202- No 500mg 500 mg, Univ ers (NAPROSYN) 11-10 0601 Oral, ity of tablet 500 08:00: 07:02 ONCE, 1 [place] mg 00 :00 dose, On Medical Mon11/10/21 Branch at 0300, Routine amoxicillin 2021- No 500mg 500 mg, U nivers (TRIMOX) 11-10- Oral, ity of capsule 500 08:00: 07:02 ONCE, 1 [place] mg 00 :00 dose, On Medical Mon11/10/21 Branch at 0300, ALEXYS
Re ason for Anti-Infec tive: Documented Infection< br>Documen allison Infection Site: HEENT
D uration of Therapy: 10 days naproxen Yes [id number] 500mg Take 1 Un shayna (NAPROSYN) 11-10 tablet by ity of 500 mg 00:00: mouth 2 [place] tablet 00 (two) Medical times Branch daily with meals. naproxen Yes [id number] 500mg Take 1 Un shayna (NAPROSYN) 11-10 tablet by ity of 500 mg 00:00: mouth 2 [place] tablet 00 (two) Medical times Branch daily with meals. naproxen 2021- No [id number] 500mg Take 1 U nivers (NAPROSYN) 11-10- tablet by ity of 500 mg 00:00: 00:00 mouth 2 [place] tablet 00 :00 (two) Medical times Branch daily with meals. amoxicillin 2021- No [id number] 500mg Take 1 Univers 500 mg 11-10 capsule by ity of capsule 00:00: 04:59 mouth 3 [place] 00 :00 (three) Medical times Branch daily for 10 days. losartan 2021-0 Yes 100mg QD Take 100 [facility] (Cozaar) 5-20 mg by Health 100 MG 00:00: mouth 1 tablet 00 (one) time each day. losartan 2022-0 Yes 100mg QD Take 100 [facility] (Cozaar) 5-20 mg by Health 100 MG 00:00: mouth 1 tablet 00 (one) time each day. losartan 2022-0 Yes 100mg QD Take 100 [facility] (Cozaar) 5-20 mg by Health 100 MG 00:00: mouth 1 tablet 00 (one) time each day. losartan 2022-0 Yes 100mg QD Take 100 [place] (Cozaar) 5-20 mg by Health 100 MG 00:00: mouth 1 tablet 00 (one) time each day. losartan 2022-0 Yes 100mg QD Take 100 [facility] (Cozaar) 5-20 mg by Health 100 MG 00:00: mouth 1 tablet 00 (one) time each day. losartan Yes 100mg QD Take 100 [facility] (Cozaar) 5-20 mg by Health 100 MG 00:00: mouth 1 tablet 00 (one) time each day. methotrexat 2021- No [id number] PO, take UT e 2.5 MG 09-09 five Health tablet 00:00: 00:00 tablets 00 :00 Qweek, folic acid 2021- No [id number] 1mg QD Take 1 UT (Folvite) 1 07-12 tablet (1 He alth MG tablet 00:00: 04:59 mg total) 00 :00 by mouth 1 (one) time each day. calcitriol 2022- No [id number] .5ug QD Take 1 U T (Rocaltrol) 06-16- capsule Heal th 0.5 MCG 00:00: 05:59 (0.5 mcg capsule 00 :00 total) by mouth 1 (one) time each day. calcitriol 2022- No [id number] .5ug QD Take 1 U T (Rocaltrol) 06-16- capsule Heal th 0.5 MCG 00:00: 05:59 (0.5 mcg capsule 00 :00 total) by mouth 1 (one) time each day. calcitriol 2022- No [id number] .5ug QD Take 1 U T (Rocaltrol) 06-16- capsule Heal th 0.5 MCG 00:00: 05:59 (0.5 mcg capsule 00 :00 total) by mouth 1 (one) time each day. calcitriol 2022- No [id number] .5ug QD Take 1 U T (Rocaltrol) 06-16- capsule Heal th 0.5 MCG 00:00: 05:59 (0.5 mcg capsule 00 :00 total) by mouth 1 (one) time each day. calcitriol 2022- No [id number] .5ug QD Take 1 U T (Rocaltrol) 06-16- capsule Heal th 0.5 MCG 00:00: 05:59 (0.5 mcg capsule 00 :00 total) by mouth 1 (one) time each day. calcitriol 2022- No [id number] .5ug QD Take 1 U T (Rocaltrol) [...] Entered ity of ORAL TAB 07:44: 00:00 [place] 52 :00 [facility] PREDNISONE 0 Yes None Univers 10 MG ORAL 06-12 Entered ity of TAB 07:31: [address] METHOTREXAT Yes None Univer s E SODIUM 06-12 Entered ity of 2.5 MG ORAL 07:31: [address] PREDNISONE 0 Yes None Univers 10 MG ORAL 06-12 Entered ity of TAB 07:31: [address] METHOTREXAT 0 Yes None Univer s E SODIUM 06-12 Entered ity of 2.5 MG ORAL 07:31: [address] PREDNISONE 0 Yes None Univers 10 MG ORAL 06-12 Entered ity of TAB 07:31: [address] METHOTREXAT 0 Yes None Univer s E SODIUM 06-12 Entered ity of 2.5 MG ORAL 07:31: [address] PREDNISONE 0 Yes None Univers 10 MG ORAL - Entered ity of TAB 07:31: [address] METHOTREXAT 0 Yes None Univer s E SODIUM 1- Entered ity of 2.5 MG ORAL 07:31: [address] PREDNISONE 2021-0 Yes None Univers 10 MG ORAL - Entered ity of TAB 07:31: [address] METHOTREXAT 0 Yes None Univer s E SODIUM 1- Entered ity of 2.5 MG ORAL 07:31: [place] TAB 09 Medical Branch traMADoL 50 2021-0 Yes [id number] 50mg Take 1 Univ ers mg tablet 1-01 tablet by ity o f 00:00: mouth [place] 00 every 4 Medical (four) Branch hours as needed for Pain (scale 1-3). Indication s: acute pain methocarbam 2022-0 Yes [id number] 750mg Take 1 Univers oL 750 mg 1-01 tablet by ity o f tablet 00:00: mouth 4 (four) Medical times Branch daily. traMADoL 50 2021-0 Yes [id number] 50mg Take 1 Univ ers mg tablet 1-01 tablet by ity o f 00:00: mouth [place] 00 every 4 Medical (four) Branch hours as needed for Pain (scale 1-3). Indication s: acute pain methocarbam 2-0 Yes [id number] 750mg Take 1 Univers oL 750 mg 1-01 tablet by ity o f tablet 00:00: mouth (four) Medical times Branch daily. traMADoL 50 2021-0 Yes [id number] 50mg Take 1 Univ ers mg tablet 1-01 tablet by ity o f 00:00: mouth [place] 00 every 4 Medical (four) Branch hours as needed for Pain (scale 1-3). Indication s: acute pain methocarbam 2021-0 Yes [id number] 750mg Take 1 Univers oL 750 mg 1-01 tablet by ity o f tablet 00:00: mouth (four) Medical times Branch daily. traMADoL 50 2021-0 Yes [id number] 50mg Take 1 Univ ers mg tablet 1-01 tablet by ity o f 00:00: mouth [place] 00 every 4 Medical (four) Branch hours as needed for Pain (scale 1-3). Indication s: acute pain methocarbam 2-0 Yes [id number] 750mg Take 1 Univers oL 750 mg 1-01 tablet by ity o f tablet 00:00: mouth (four) Medical times Branch daily. traMADoL 50 2-0 Yes [id number] 50mg Take 1 Univ ers mg tablet 1-01 tablet by ity o f 00:00: mouth [place] 00 every 4 Medical (four) Branch hours as needed for Pain (scale 1-3). Indication s: acute pain methocarbam 2022-0 Yes [id number] 750mg Take 1 Univers oL 750 mg 1-01 tablet by ity o f tablet 00:00: mouth (four) Medical times Branch daily. traMADoL 50 2-0 Yes [id number] 50mg Take 1 Univ ers mg tablet 1-01 tablet by ity o f 00:00: mouth [place] 00 every 4 Medical (four) Branch hours as needed for Pain (scale 1-3). Indication s: acute pain methocarbam 2022-0 Yes [id number] 750mg Take 1 Univers oL 750 mg 1-01 tablet by ity o f tablet 00:00: mouth (four) Medical times Branch daily. traMADoL 50 2-0 Yes [id number] 50mg Take 1 Univ ers mg tablet 1-01 tablet by ity o f 00:00: mouth 00 every 4 Medical (four) Branch hours as needed for Pain (scale 1-3). Indication s: acute pain methocarbam 2022-0 Yes [id number] 750mg Take 1 Univers oL 750 mg 1-01 tablet by ity o f tablet 00:00: mouth (four) Medical times Branch daily. traMADoL 50 2-0 Yes [id number] 50mg Take 1 Univ ers mg tablet 1-01 tablet by ity o f 00:00: mouth [place] 00 every 4 Medical (four) Branch hours as needed for Pain (scale 1-3). Indication s: acute pain methocarbam 2022-0 Yes [id number] 750mg Take 1 Univers oL 750 mg 1-01 tablet by ity o f tablet 00:00: mouth (four) Medical times Branch daily. traMADoL 50 2-0 Yes [id number] 50mg Take 1 Univ ers mg tablet 1-01 tablet by ity o f 00:00: mouth [place] 00 every 4 Medical (four) Branch hours as needed for Pain (scale 1-3). Indication s: acute pain methocarbam 2022-0 Yes [id number] 750mg Take 1 Univers oL 750 mg 1-01 tablet by ity o f tablet 00:00: mouth (four) Medical times Branch daily. traMADoL 50 2-0 Yes [id number] 50mg Take 1 Univ ers mg tablet 1-01 tablet by ity o f 00:00: mouth [place] 00 every 4 Medical (four) Branch hours as needed for Pain (scale 1-3). Indication s: acute pain methocarbam 2022-0 Yes [id number] 750mg Take 1 Univers oL 750 mg 1-01 tablet by ity o f tablet 00:00: mouth 4 [place] 00 (four) Medical times Branch daily. Blood 2020-06 Yes [id number] CHECK [facility] Glucose 2-27 BLOOD Health Monitoring 00:00: SUGAR Suppl (ONE 00 THREE TOUCH ULTRA TIMES A 2) w/Device DAY kit Blood 2020-06 Yes [id number] CHECK [facility] Glucose 2-27 BLOOD Health Monitoring 00:00: SUGAR Suppl (ONE 00 THREE TOUCH ULTRA TIMES A 2) w/Device DAY kit Blood 2020-06 Yes [id number] CHECK [facility] Glucose 2-27 BLOOD Health Monitoring 00:00: SUGAR Suppl (ONE 00 THREE TOUCH ULTRA TIMES A 2) w/Device DAY kit Blood 2020-06 Yes [id number] CHECK [facility] Glucose 2-27 BLOOD Health Monitoring 00:00: SUGAR Suppl (ONE 00 THREE TOUCH ULTRA TIMES A 2) w/Device DAY kit Blood 2020-06 Yes [id number] CHECK [facility] Glucose 2-27 BLOOD Health Monitoring 00:00: SUGAR Suppl (ONE 00 THREE TOUCH ULTRA TIMES A 2) w/Device DAY kit Blood 2020-06 Yes [id number] CHECK [facility] Glucose 2-27 BLOOD Health Monitoring 00:00: [place] Suppl (ONE 00 THREE TOUCH ULTRA TIMES A 2) w/Device DAY kit ezetimibe 2020-06 Yes [id number] 10mg Take 1 [facility] (Zetia) 10 2-16 tablet (10 Hea lth MG tablet 00:00: mg total) 00 by mouth every night. ezetimibe 2020-06 Yes [id number] 10mg Take 1 [facility] (Zetia) 10 2-16 tablet (10 Hea lth MG tablet 00:00: mg total) 00 by mouth every night. ezetimibe 2020-06 Yes [id number] 10mg Take 1 [facility] (Zetia) 10 2-16 tablet (10 Hea lth MG tablet 00:00: mg total) 00 by mouth every night. ezetimibe 2020-06 Yes [id number] 10mg Take 1 [facility] (Zetia) 10 2-16 tablet (10 Hea lth MG tablet 00:00: mg total) 00 by mouth every night. dapaglifloz 2020-06- No [id number] 10mg QD Take 1 UT in 2-16 12-17 tablet (10 [facility] ([facility]) 00:00: 05:59 mg total) 10 MG 00 :00 by mouth 1 (one) time each day. dapaglifloz 2020-06- No [id number] 10mg QD Take 1 UT in 2-16 12-17 tablet (10 [facility]) 00:00: 05:59 mg total) 10 MG 00 :00 by mouth 1 (one) time each day. dapaglifloz 2020-06- No [id number] 10mg QD Take 1 UT in -16 12-17 tablet (10 [facility]) 00:00: 05:59 mg total) 10 MG 00 :00 by mouth 1 (one) time each day. dapaglifloz 2020-06- No [id number] 10mg QD Take 1 UT in -16 -17 tablet (10 [facility]) 00:00: 05:59 mg total) 10 MG 00 :00 by mouth 1 (one) time each day. dapaglifloz 2020-06- No [id number] 10mg QD Take 1 UT in -16 -03 tablet (10 [facility]) 00:00: 00:00 mg total) 10 MG 00 :00 by mouth 1 (one) time each day. ezetimibe 2020-06- No [id number] 10mg Take 1 U T (Zetia) 10 07-28-03 tablet (10 He alth MG tablet 00:00: 00:00 mg total) 00 :00 by mouth every night. hydrOXYzine 2020-0 Yes [id number] 10mg Q6H Take 1 UT HCl 9-20 tablet (10 Health (Atarax) 10 00:00: mg total) MG tablet 00 by mouth every 6 (six) hours if needed for itching for up to 10 days. hydrOXYzine 2020-0 Yes [id number] 10mg Q6H Take 1 UT HCl 9-20 tablet (10 Health (Atarax) 10 00:00: mg total) MG tablet 00 by mouth every 6 (six) hours if needed for itching for up to 10 days. hydrOXYzine 2020-0 Yes [id number] 10mg Q6H Take 1 UT HCl 9-20 tablet (10 Health (Atarax) 10 00:00: mg total) MG tablet 00 by mouth every 6 (six) hours if needed for itching for up to 10 days. hydrOXYzine Yes [id number] 10mg Q6H Take 1 UT HCl 9-20 tablet (10 Health (Atarax) 10 00:00: mg total) MG tablet 00 by mouth every 6 (six) hours if needed for itching for up to 10 days. hydrOXYzine Yes [id number] 10mg Q6H Take 1 UT HCl 9-20 tablet (10 Health (Atarax) 10 00:00: mg total) MG tablet 00 by mouth every 6 (six) hours if needed for itching for up to 10 days. Insulin Pen Yes [id number] USE UP TO UT Needle (BD 8-12 5 NEEDLES Heal th Pen Needle 00:00: DAILY Makeda 2nd Gen) 32G X 4 MM misc insulin Yes [id number] Inject 44 UT glargine 8-12 Units Health (Basaglar 00:00: under the KwikPen) 00 skin 1 100 UNIT/ML (one) time injection each day in the morning. insulin Yes [id number] Inject 20 UT aspart 8-12 Units Health (NovoLOG 00:00: under the FLEXPEN) 00 skin 1 100 UNIT/ML (one) time injection each day with breakfast AND 28 Units 1 (one) time each day with dinner. Insulin Pen Yes [id number] USE UP TO UT Needle (BD 8-12 5 NEEDLES Heal th Pen Needle 00:00: DAILY Maekda 2nd Gen) 32G X 4 MM misc fluvastatin Yes [id number] 20mg Take 1 UT (Lescol) 20 8-12 capsule Healt h MG capsule 00:00: (20 mg 00 total) by mouth every night. Victoza 18 Yes [id number] 1.2mg QD Inject 1.2 UT MG/3ML 8-12 mg under Health injection 00:00: the skin 1 00 (one) time each day. Insulin Pen Yes [id number] USE UP TO UT Needle (BD 8-12 5 NEEDLES Heal th Pen Needle 00:00: DAILY Makeda 2nd Gen) 32G X 4 MM misc fluvastatin 2021-0 Yes [id number] 20mg Take 1 UT (Lescol) 20 8-12 capsule Healt h MG capsule 00:00: (20 mg 00 total) by mouth every night. Insulin Pen Yes [id number] USE UP TO UT Needle (BD 8-12 5 NEEDLES Heal th Pen Needle 00:00: DAILY Makeda 2nd 00 Gen) 32G X 4 MM misc fluvastatin 0 Yes [id number] 20mg Take 1 UT (Lescol) 20 8-12 capsule Healt h MG capsule 00:00: (20 mg 00 total) by mouth every night. Insulin Pen Yes [id number] USE UP TO UT Needle (BD 8-12 5 NEEDLES Heal th Pen Needle 00:00: DAILY Makeda 2nd 00 Gen) 32G X 4 MM misc Insulin Pen Yes [id number] USE UP TO UT Needle (BD 8-12 5 NEEDLES Heal th Pen Needle 00:00: DAILY Makeda 2nd 00 Gen) 32G X 4 MM misc fluvastatin 2021- No [id number] 20mg Take 1 UT (Lescol) 20 01-21-03 capsule Heal th MG capsule 00:00: 00:00 (20 mg 00 :00 total) by mouth every night. insulin 2021- No [id number] Inject 44 UT glargine 01-21-16 Units Health (Basaglar 00:00: 00:00 under the KwikPen) 00 :00 skin 1 100 UNIT/ML (one) time injection each day in the morning. insulin 2021- No [id number] Inject 20 UT aspart 01-21-16 Units Health (NovoLOG 00:00: 00:00 under the FLEXPEN) 00 :00 skin 1 100 UNIT/ML (one) time injection each day with breakfast AND 28 Units 1 (one) time each day with dinner. Victoza 18 2021- No [id number] 1.2mg QD Inject 1.2 UT MG/3ML 01-21-16 mg under Health injection 00:00: 00:00 the skin 1 00 :00 (one) time each day. insulin 2021- No [id number] Inject 44 UT glargine 01-21 08-13 Units Health (Basaglar 00:00: 04:59 under the KwikPen) 00 :00 skin 1 100 UNIT/ML (one) time injection each day in the morning. insulin 2021- No [id number] Inject 20 UT aspart 01-21 Units Health (NovoLOG 00:00: 04:59 under the FLEXPEN) 00 :00 skin 1 100 UNIT/ML (one) time injection each day with breakfast AND 28 Units 1 (one) time each day with dinner. fluvastatin 2021- No [id number] 20mg Take 1 UT (Lescol) 20 01-21 capsule Heal th MG capsule 00:00: 04:59 (20 mg 00 :00 total) by mouth every night. Victoza 18 2021- No [id number] 1.2mg QD Inject 1.2 UT MG/3ML 01-21 mg under Health injection 00:00: 04:59 the skin 1 00 :00 (one) time each day. levothyroxi Yes [id number] Take U T ne 12-31 levothyrox Health (Synthroid, 00:00: ine 150 Levoxyl) 00 mcg 6.5 150 MCG tablets tablet per week (one tablet Monday through Monday and 1/2 tablet on Monday) levothyroxi Yes [id number] Take U T ne 12-31 levothyrox Health (Synthroid, 00:00: ine 150 Levoxyl) 00 mcg 6.5 150 MCG tablets tablet per week (one tablet Monday through Monday and 1/2 tablet on Monday) levothyroxi Yes [id number] Take U T ne 12-31 levothyrox Health (Synthroid, 00:00: ine 150 Levoxyl) 00 mcg 6.5 150 MCG tablets tablet per week (one tablet Monday through Monday and 1/2 tablet on Monday) levothyroxi Yes [id number] Take U T ne 12-31 levothyrox Health (Synthroid, 00:00: ine 150 Levoxyl) 00 mcg 6.5 150 MCG tablets tablet per week (one tablet Monday through Monday and 1/2 tablet on Monday) levothyroxi Yes [id number] Take U T ne 7 levothyrox Health (Synthroid, 00:00: ine 150 Levoxyl) 00 mcg 6.5 150 MCG tablets tablet per week (one tablet Monday through Monday and 1/2 tablet on Monday) levothyroxi 0 Yes [id number] Take U T ne 7-22 levothyrox Health (Synthroid, 00:00: ine 150 Levoxyl) 00 mcg 6.5 150 MCG tablets tablet per week (one tablet Monday through Monday and 1/2 tablet on Monday) OneTouch 0 Yes [id number] Test 3 UT Delica 7-15 times Health Lancets 33G 00:00: daily misc 00 OneTouch 2020-0 Yes [id number] Test 3 UT Delica 7-15 times Health Lancets 33G 00:00: daily misc 00 OneTouch 2020-0 Yes [id number] Test 3 UT Delica 7-15 times Health Lancets 33G 00:00: daily misc 00 OneTouch 2020-0 Yes [id number] Test 3 UT Delica 7-15 times Health Lancets 33G 00:00: daily misc 00 OneTouch 2020-0 Yes [id number] Test 3 UT Delica 7-15 times Health Lancets 33G 00:00: daily misc 00 OneTouch 2020-0 Yes [id number] Test 3 UT Delica 7-15 times Health Lancets 33G 00:00: daily misc 00 Blood 2020-0 Yes [id number] TEST 3 UT Glucose 7-13 TIMES A Health Monitoring 00:00: DAY Suppl 00 (Blood Glucose Monitor System) w/Device kit Glucose 2020-0 Yes [id number] TEST 3 UT Blood 7-13 TIMES A Health (Blood 00:00: DAY Glucose 00 Test) strip Lancets 2020-0 Yes [id number] TEST 3 UT misc 7-13 TIMES A Health 00:00: DAY 00 Blood 2020-0 Yes [id number] TEST 3 UT Glucose 7-13 TIMES A Health Monitoring 00:00: DAY Suppl 00 (Blood Glucose Monitor System) w/Device kit Glucose 2020-0 Yes [id number] TEST 3 UT Blood 7-13 TIMES A Health (Blood 00:00: DAY Glucose 00 Test) strip Lancets 2020-0 Yes [id number] TEST 3 UT misc 7-13 TIMES A Health 00:00: DAY 00 Blood 1-0 Yes [id number] TEST 3 UT Glucose 7-13 TIMES A Health Monitoring 00:00: DAY Suppl 00 (Blood Glucose Monitor System) w/Device kit Glucose 2020-0 Yes [id number] TEST 3 UT Blood 7-13 TIMES A Health (Blood 00:00: DAY Glucose 00 Test) strip Lancets 2020-0 Yes [id number] TEST 3 UT misc 7-13 TIMES A Health 00:00: DAY 00 Blood 2020-0 Yes [id number] TEST 3 UT Glucose 7-13 TIMES A Health Monitoring 00:00: DAY Suppl 00 (Blood Glucose Monitor System) w/Device kit Glucose 2020-0 Yes [id number] TEST 3 UT Blood 7-13 TIMES A Health (Blood 00:00: DAY Glucose 00 Test) strip Lancets 2020-0 Yes [id number] TEST 3 UT misc 7-13 TIMES A Health 00:00: DAY 00 Blood 2020-0 Yes [id number] TEST 3 UT Glucose 7-13 TIMES A Health Monitoring 00:00: DAY Suppl 00 (Blood Glucose Monitor System) w/Device kit Glucose 2020-0 Yes [id number] TEST 3 UT Blood 7-13 TIMES A Health (Blood 00:00: DAY Glucose 00 Test) strip Lancets 2020-0 Yes [id number] TEST 3 UT misc 7-13 TIMES A Health 00:00: DAY 00 Blood 2020-0 Yes [id number] TEST 3 UT Glucose 7-13 TIMES A Health Monitoring 00:00: DAY Suppl 00 (Blood Glucose Monitor System) w/Device kit Glucose 2020-0 Yes [id number] TEST 3 UT Blood 7-13 TIMES A Health (Blood 00:00: DAY Glucose 00 Test) strip Lancets 2020-0 Yes [id number] TEST 3 UT misc 7-13 TIMES A Health 00:00: DAY 00 Continuous 2020-0 Yes [id number] Use as UT Blood Gluc 5-18 instructed Hea lth Sensor 00:00: (FreeStyle 00 [facility] sensor system) misc Continuous 2020-0 Yes [id number] Use as UT Blood Gluc 5-18 instructed Hea lth Sensor 00:00: (FreeStyle 00 [facility] sensor system) misc Continuous 2020-0 Yes [id number] Use as UT Blood Gluc 5-18 instructed Hea lth Sensor 00:00: (FreeStyle 00 [facility] sensor system) misc Continuous 2020-0 Yes [id number] Use as UT Blood Gluc 5-18 instructed Hea lth Sensor 00:00: (FreeStyle 00 [facility] sensor system) misc Continuous 2020-0 Yes [id number] Use as UT Blood Gluc 5-18 instructed Hea lth Sensor 00:00: (FreeStyle 00 [facility] sensor system) misc Continuous 2020-0 Yes [id number] Use as UT Blood Gluc 5-18 instructed [...] 5-17 Health MG tablet 00:00: 00 doxazosin 2021-0 2022- No UT (Cardura) 2 5-17 11-03 Health MG tablet 00:00: 00:00 00 :00 travoprost 2020-0 Yes UT (Travatan 5-01 Health [...] MG DR 00:00: capsule 00 DULoxetine 2020-0 2- No UT (Cymbalta) 2-24 11-[address] 00:00: 00:00 capsule 00 :00 OneTouch 2020-1 Yes UT Verio test 2-03 [...] 8-15 Health ophthalmic 00:00: emulsion 00 Restasis 0 Yes UT 0.05 % 8-15 Health ophthalmic 00:00: emulsion 00 METHOTREXAT Yes None Univer s E SODIUM 1- Entered ity of 2.5 MG ORAL 04:11: [address] FOLIC ACID Yes None Univers 1 MG ORAL - Entered ity of TAB 04:11: [address] LEVOTHYROXI Yes None Univer s NE 200 MCG 1- Entered ity of ORAL TAB 04:11: [address] METFORMIN Yes None Univers 500 MG ORAL - Entered ity o f TAB 04:11: [address] CALCITRIOL Yes None Univers 0.5 MCG - Entered ity of ORAL CAP 04:11: [address] FOLTRIN Yes None Univers ORAL - Entered ity of 04:11: [address] ENALAPRIL Yes None Univers MALEATE 20 - Entered ity of MG ORAL TAB 04:11: [address] HYDROXYCHLO Yes None Univer s ROQUINE 200 1- Entered ity o f MG ORAL TAB 04:11: [address] AMLODIPINE Yes None Univers BESYLATE - Entered ity of ORAL 04:11: [address] PREDNISONE Yes None Univers 10 MG ORAL - Entered ity of TAB 04:11: [address] METHOCARBAM Yes None Univer s OL 750 MG - Entered ity of ORAL TAB 04:11: [address] HYDROCHLORO Yes None Univer s THIAZIDE 25 - Entered ity o f MG ORAL TAB 04:11: [address] TRAMADOL 50 Yes 2 tabs q 6 Univers MG ORAL TAB 1- hours prn ity of 00:00: pain [address] folic acid Yes Take by UT (Folvite) 1 - mouth. Health MG tablet 00:00: 00 folic acid Yes Take by UT (Folvite) 1 07-12 mouth. Health MG tablet 00:00: 00 TRAMADOL 50 2021- No 2 tabs q 6 Univers MG ORAL TAB 1-31 01-01 hours prn it y of 00:00: 00:00 pain [place] 00 :00 [facility] FOLIC ACID Yes None Univers 1 MG ORAL 1-30 Entered ity of TAB 22:11: [address] LEVOTHYROXI Yes None Univer s NE 200 MCG 1-30 Entered ity of ORAL TAB 22:11: [address] METFORMIN Yes None Univers 500 MG ORAL 1-30 Entered ity o f TAB 22:11: [address] CALCITRIOL Yes None Univers 0.5 MCG 1-30 Entered ity of ORAL CAP 22:11: [address] FOLTRIN Yes None Univers ORAL 1-30 Entered ity of 22:11: [address] ENALAPRIL Yes None Univers MALEATE 20 1-30 Entered ity of MG ORAL TAB 22:11: [address] HYDROXYCHLO Yes None Univer s ROQUINE 200 1-30 Entered ity o f MG ORAL TAB 22:11: [address] AMLODIPINE Yes None Univers BESYLATE 1-30 Entered ity of ORAL 22:11: [address] FOLIC ACID Yes None Univers 1 MG ORAL 1-30 Entered ity of TAB 22:11: [address] LEVOTHYROXI Yes None Univer s NE 200 MCG 1-30 Entered ity of ORAL TAB 22:11: [address] METFORMIN Yes None Univers 500 MG ORAL 1-30 Entered ity o f TAB 22:11: [address] CALCITRIOL Yes None Univers 0.5 MCG 1-30 Entered ity of ORAL CAP 22:11: [address] FOLTRIN Yes None Univers ORAL 1-30 Entered ity of 22:11: [address] ENALAPRIL Yes None Univers MALEATE 20 1-30 Entered ity of MG ORAL TAB 22:11: [address] HYDROXYCHLO Yes None Univer s ROQUINE 200 1-30 Entered ity o f MG ORAL TAB 22:11: [address] AMLODIPINE Yes None Univers BESYLATE 1-30 Entered ity of ORAL 22:11: [address] FOLIC ACID Yes None Univers 1 MG ORAL 1-30 Entered ity of TAB 22:11: [address] LEVOTHYROXI Yes None Univer s NE 200 MCG 1-30 Entered ity of ORAL TAB 22:11: [address] METFORMIN Yes None Univers 500 MG ORAL 1-30 Entered ity o f TAB 22:11: [address] CALCITRIOL Yes None Univers 0.5 MCG 1-30 Entered ity of ORAL CAP 22:11: [address] FOLTRIN Yes None Univers ORAL 1-30 Entered ity of 22:11: [address] ENALAPRIL Yes None Univers MALEATE 20 1-30 Entered ity of MG ORAL TAB 22:11: [address] HYDROXYCHLO Yes None Univer s ROQUINE 200 1-30 Entered ity o f MG ORAL TAB 22:11: [address] AMLODIPINE Yes None Univers BESYLATE 1-30 Entered ity of ORAL 22:11: [address] FOLIC ACID Yes None Univers 1 MG ORAL 1-30 Entered ity of TAB 22:11: [address] LEVOTHYROXI Yes None Univer s NE 200 MCG 1-30 Entered ity of ORAL TAB 22:11: [address] METFORMIN Yes None Univers 500 MG ORAL 1-30 Entered ity o f TAB 22:11: [address] CALCITRIOL Yes None Univers 0.5 MCG 1-30 Entered ity of ORAL CAP 22:11: [address] FOLTRIN Yes None Univers ORAL 1-30 Entered ity of 22:11: [address] ENALAPRIL Yes None Univers MALEATE 20 1-30 Entered ity of MG ORAL TAB 22:11: [address] HYDROXYCHLO Yes None Univer s ROQUINE 200 1-30 Entered ity o f MG ORAL TAB 22:11: [address] AMLODIPINE Yes None Univers BESYLATE 1-30 Entered ity of ORAL 22:11: [address] FOLIC ACID Yes None Univers 1 MG ORAL 1-30 Entered ity of TAB 22:11: [address] LEVOTHYROXI Yes None Univer s NE 200 MCG 1-30 Entered ity of ORAL TAB 22:11: [address] METFORMIN Yes None Univers 500 MG ORAL 1-30 Entered ity o f TAB 22:11: [address] CALCITRIOL Yes None Univers 0.5 MCG 1-30 Entered ity of ORAL CAP 22:11: [address] FOLTRIN Yes None Univers ORAL 1-30 Entered ity of 22:11: [address] ENALAPRIL Yes None Univers MALEATE 20 1-30 Entered ity of MG ORAL TAB 22:11: [address] HYDROXYCHLO Yes None Univer s ROQUINE 200 1-30 Entered ity o f MG ORAL TAB 22:11: [address] AMLODIPINE Yes None Univers BESYLATE 1-30 Entered ity of ORAL 22:11: [address] HYDROCHLORO Yes None Univer s THIAZIDE 25 1-30 Entered ity o f MG ORAL TAB 22:11: [address] HYDROCHLORO Yes None Univer s THIAZIDE 25 1-30 Entered ity o f MG ORAL TAB 22:11: [address] HYDROCHLORO Yes None Univer s THIAZIDE 25 1-30 Entered ity o f MG ORAL TAB 22:11: [address] HYDROCHLORO Yes None Univer s THIAZIDE 25 1-30 Entered ity o f MG ORAL TAB 22:11: [address] HYDROCHLORO Yes None Univer s THIAZIDE 25 1-30 Entered ity o f MG ORAL TAB 22:11: [address] Vital Signs Vital Name Observation Time Observation Value Comments Source Systolic blood 2022-06-07 16:08:00 127 mm[Hg] [facility] Hea lth pressure Diastolic blood 2022-06-07 16:08:00 64 mm[Hg] UT He alth pressure Heart rate 2022-06-07 16:08:00 59 /min UT Healt h Systolic blood 2022-04-14 19:11:00 140 mm[Hg] UT [...] 16:37:00 126 mm[Hg] Univer sity of pressure [facility] Diastolic blood 2021-12-15 16:37:00 56 mm[Hg] Unive rsity of pressure [facility] Heart rate 2021-12-15 16:37:00 63 /min Universi ty of [facility] Body temperature 2021-12-15 16:37:00 36.39 Josette Univ ersity of [facility] Respiratory rate 2021-12-15 16:37:00 18 [facility] 2021-12-15 16:37:00 99 /min University of Arterial blood by [facility] Pulse oximetry Branch Body weight 2021-12-15 09:13:00 110.995 kg [facility] [place] [facility] BMI 2021-12-15 09:13:00 44.76 kg/m2 [facility] [place] [facility] Body height 2021-12-03 11:19:00 157.5 cm [facility] [place] [facility] Systolic blood 2021-11-29 14:17:00 124 mm[Hg] Univer sity of pressure [place] [facility] Diastolic blood 2021-11-29 14:17:00 62 mm[Hg] Unive rsity of pressure [place] [facility] Heart rate 2021-11-29 14:17:00 82 /min [facility] [place] [facility] Body temperature 2021-11-29 14:17:00 36.94 Josette Univ [facility] [place] [facility] Respiratory rate 2021-11-29 14:17:00 18 /min [facility] [place] [facility] Body height 2021-11-29 14:17:00 157.5 cm [facility] [place] [facility] Body weight 2021-11-29 14:17:00 92.534 kg [facility] [place] [facility] BMI 2021-11-29 14:17:00 37.31 kg/m2 [facility] [place] [facility] Oxygen saturation in 2021-11-29 14:17:00 97 /min University of Arterial blood by [facility] Pulse oximetry Branch Systolic blood 2021-11-10 07:07:54 223 mm[Hg] Univer sity of pressure [place] [facility] Diastolic blood 2021-11-10 07:07:54 93 mm[Hg] Unive rsity of pressure [place] [facility] Heart rate 2021-11-10 07:07:54 66 /min [facility] [place] [facility] Body temperature 2021-11-10 07:07:54 36.5 Josette [facility] [place] [facility] Respiratory rate 2021-11-10 07:07:54 17 /min Univ [facility] [place] [facility] Body height 2021-11-10 05:54:00 157.5 cm [facility] [place] [facility] Body weight 2021-11-10 05:54:00 92.534 kg [facility] [place] [facility] BMI 2021-11-10 05:54:00 37.31 kg/m2 [facility] Oxygen saturation in 2021-11-10 05:49:00 96 /min University of Arterial blood by [facility] Pulse oximetry Branch Body temperature 2021-06-12 13:32:00 37.72 [facility] Syst[facility] blood 2021-06-12 13:29:00 125 mm[Hg] Univer sity of pressure [facility] Diastolic blood 2021-06-12 13:29:00 64 mm[Hg] Unive rsity of pressure [facility] Heart rate 2021-06-12 13:29:00 82 /min [facility] Respiratory rate 2021-06-12 13:29:00 18 /min [facility] Body weight 2021-06-12 13:29:00 101.606 kg [facility] Oxygen saturation in 2021-06-12 13:29:00 97 /min [facility] Arterial blood by [facility] Pulse oximetry Pe Ell Procedures Procedure Date / Time Performing Clinician Source Performed POCT GLUCOSE 2022-06-07 16:27:00 [place], [facility] POCT GLYCOSYLATED 2022-06-07 16:27:00 [place], [facility] HEMOGLOBIN (HGB A1C) POCT GLUCOSE 2022-03-08 13:43:00 [place], [facility] COMPREHENSIVE METABOLIC 2022-01-25 16:11:00 [place], [facility] ealt PANEL CALCIUM, IONIZED 2022-01-25 16:11:00 [place], [facility] MAGNESIUM 2022-01-25 16:11:00 Yodit Cisse [facility] PHOSPHORUS 2022-01-25 16:11:00 [place], [facility] HEPATITIS A ANTIBODY, IGM 2022-01-03 02:51:00 CH I [facility] HEPATITIS B CORE ANTIBODY, 2022-01-03 02:51:00 C HI [facility] HEPATITIS C ANTIBODY 2022-01-03 02:51:00 [facility] HEPATITIS B SURFACE 2022-01-03 02:51:00 [facility] EXTERNAL PROVIDER RECORDS 2021-12-31 05:01:00 Doctor Unassigned, [facility] [place] [facility] COMPREHENSIVE METABOLIC 2021-12-30 16:26:00 [facility] PANEL HEMOGLOBIN A1C 2021-12-30 16:26:00 [facility] C-REACTIVE PROTEIN 2021-12-30 16:26:00 [facility] CBC AND DIFFERENTIAL 2021-12-30 16:26:00 [facility] Hea lth URINALYSIS WITH REFLEX 2021-12-30 16:26:00 [facility] ealth MICROSCOPIC PROTEIN / CREATININE 2021-12-30 16:26:00 [facility] lt RATIO, URINE ALBUMIN, RANDOM URINE W/CR 2021-12-30 16:26:00 [facility] (MICROALBUMIN) NULL 2021-12-30 16:26:00 [facility] PREPARE PACKED RBC 2021-12-15 19:54:34 Harjeet [facility] POCT GLUCOSE (AUTOMATED) 2021-12-15 16:38:00 Benjy [facility] POCT GLUCOSE (AUTOMATED) 2021-12-15 12:52:00 Benjy [facility] COMP. METABOLIC PANEL 2021-12-15 09:34:00 Otto Sanchez [facility] ([id number]) [facility] POCT GLUCOSE (AUTOMATED) 2021-12-15 01:30:00 [facility]ATED) 2021-12-14 22:05:00 [facility] DUPLEX VENOUS LEGS 2021-12-14 21:55:00 Otto Sanchez [facility] BILATERAL - BY VASCULAR Medical Branch LAB POCT GLUCOSE (AUTOMATED) 2021-12-14 17:09:00 [facility]ST 1 VW 2021-12-14 13:35:[facility] 2021-12-14 12:31:00 [facility] COMP. METABOLIC PANEL 2021-12-14 08:30:00 Otto Sanchez [facility] ([id number]) Medical Branch CBC WITH DIFF 2021-12-14 04:27:00 Otto Sanchez [facility] PANEL IDENTIFICATION 2021-12-14 03:37:00 Ayesha Bateman [facility] ELUTION IDENTIFICATION 2021-12-14 03:37:00 Ayesha [facility]eman [facility] HB ABO GROUPING 2021-12-14 03:37:00 [facility] ZACHARY POLYSPECIFIC RESULT 2021-12-14 03:37:00 [facility] Z[facility] MONOSPECIFIC IGG 2021-12-14 03:37:00 [facility] ZACHARY MONOSPECIFIC C3 RESULT 2021-12-14 03:37:00 Ayesha Bateman [facility] POCT GLUCOSE (AUTOMATED) 2021-12-14 01:35:00 Benjy [facility] POCT GLUCOSE (AUTOMATED) 2021-12-13 21:59:00 Benjy [facility] POCT GLUCOSE (AUTOMATED) 2021-12-13 17:12:00 Benjy [facility] POCT GLUCOSE (AUTOMATED) 2021-12-13 12:37:00 [facility] BASIC METABOLIC PANEL (NA, 2021-12-13 09:19:00 Darío Rinaldi [facility] K, CL, CO2, GLUCOSE, BUN, Medica l Branch CREATININE, CA) CBC WITH DIFF 2021-12-13 09:19:00 Darío Rinaldi [facility] N-TERMINAL PRO-BNP 2021-12-13 09:19:00 Otto Sanchez [facility] POCT GLUCOSE (AUTOMATED) 2021-12-13 01:37:00 Harjeet Burleson [facility] VANCOMYCIN RANDOM LEVEL 2021-12-12 23:06:00 [place], [facility] POCT GLUCOSE (AUTOMATED) 2021-12-12 21:48:00 Benjy [facility] POCT GLUCOSE (AUTOMATED) 2021-12-12 16:45:00 Benjy [facility] IONIZED CALCIUM 2021-12-12 15:19:00 [facility] POCT GLUCOSE (AUTOMATED) 2021-12-12 12:17:00 Benjy [facility] PHOSPHORUS 2021-12-12 09:31:00 Terminangy [facility] MAGNESIUM 2021-12-12 09:31[facility] BASIC METABOLIC PANEL (NA, 2021-12-12 09:31:[address] [facility], CL, CO2, GLUCOSE, BUN, Medica l Branch CREATININE, CA) CBC WITH DIFF 2021-12-12 09:31:00 [facility] POCT GLUCOSE (AUTOMATED) 2021-12-12 02:16:00 Benjy [facility] VANCOMYCIN RANDOM LEVEL 2021-12-11 23:26:00 Vivienne Gallo [facility] CBC WITHOUT DIFF 2021-12-11 23:26:00 Benjy [facility] POCT GLUCOSE (AUTOMATED) 2021-12-11 21:50:00 Benjy [facility] PREPARE PACKED RBC 2021-12-11 17:50:14 Joe [facility] POCT GLUCOSE (AUTOMATED) 2021-12-11 16:18:00 Colt Astorga [facility] TRANSFUSION RXN 2021-12-11 09:35:28 Joe [facility] TRXN WORKUP-ABBREVIATED 2021-12-11 09:26:48 Joe [facility] MAGNESIUM 2021-12-11 09:21:00 Jaylin Camargo [facility] BASIC METABOLIC PANEL (NA, 2021-12-11 09:21:00 Camargo, Jaylin U [facility] K, CL, CO2, GLUCOSE, BUN, Medica l Branch CREATININE, CA) CBC WITH DIFF 2021-12-11 09:21:00 [facility]SE (AUTOMATED) 2021-12-11 01:43:00 Colt Astorga [facility] PANEL IDENTIFICATION 2021-12-10 23:32:00 Jaylin Camargo [facility] ELUTION IDENTIFICATION 2021-12-10 23:32:00 Jaylin Camargo [facility] POCT GLUCOSE (AUTOMATED) 2021-12-10 22:33:00 Colt Asotrga [facility] HB ABO GROUPING 2021-12-10 20:25:00 [facility] PO[facility] GLU[facility]SE (AUTOMATED) 2021-12-10 19:31:00 Colt Astorga [facility] THYROID STIMULATING 2021-12-10 19:23:00 Aidee Harvey [facility] HORMONE [facility] VANCOMYCIN RANDOM LEVEL 2021-12-10 19:23:00 Nirmala Vasquez [facility] TRANSTHORACIC ECHO (TTE) 2021-12-10 16:57:00 Suresh Bentley [facility] COMPLETE W/ CONTRAST Medical [facility] POCT GLUCOSE (AUTOMATED) 2021-12-10 16:44:00 Colt Astorga [facility] CBC WITH DIFF 2021-12-10 14:20:00 Jaylin Camargo [facility] POCT GLUCOSE (AUTOMATED) 2021-12-10 14:19:00 Colt Astorg[facility] POCT GLUCOSE (AUTOMATED) 2021-12-10 12:54:00 Colt Astorga [facility] LACTIC ACID WHOLE BLOOD 2021-12-10 09:18:00 Suresh Bentley [facility] MAGNESIUM 2021-12-10 09:17:00 Jaylin Camargo [facility] IONIZED CALCIUM 2021-12-10 09:17:00 Mc Suresh [facility] HEPATIC FUNCTION PANEL 2021-12-10 09:17:00 BentleyZoilaSuresh [facility] ([id number]) (ALB,T.PRO,BILI Medical Branch T,BU/BC,ALT,AST,ALK PHOS) BASIC METABOLIC PANEL (NA, 2021-12-10 09:17:00 Jaylin Camargo [facility] K, CL, CO2, GLUCOSE, BUN, Medica l Branch CREATININE, CA) CBC WITH DIFF 2021-12-10 09:17:00 Raman [facility] EKG-12 LEAD 2021-12-10 07:12:46 Doctor Unassigned, [facility] [place] [facility] POCT GLUCOSE (AUTOMATED) 2021-12-10 06:17:00 Colt Astorga [facility] POCT GLUCOSE (AUTOMATED) 2021-12-10 04:16:00 Colt Astorga [facility] POCT GLUCOSE (AUTOMATED) 2021-12-10 02:03:00 Colt Astorga [facility] CT HEAD WO CONTRAST 2021-12-10 00:39:00 Lauro Pino [facility] AC PANEL 20 + LACTIC ACID 2021-12-09 23:38:00 [facility] POCT GLUCOSE (AUTOMATED) 2021-12-09 23:28:00 Colt Astorga [facility] MISCELLANEOUS SEND OUT 2021-12-09 21:48:00 Nirmala Vasquez [facility] COVID-19 (MOLECULAR 2021-12-09 21:22:00 Nirmala Vasquez [facility] TESTING [facility] NUCLEIC ACID AMPLIFICATION) LAB ONLY COVID 2021-12-09 21:22:00 Pedro [facility] INTERPRETATION [facility] HISTOPLASMA GALACTOMANNAN 2021-12-09 21:21:00 Nirmala Vasquez [facility] ANTIGEN QUANTITATIVE BY [facility] EIA, URINE POCT GLUCOSE (AUTOMATED) 2021-12-09 21:08:00 Colt Astorga [facility] POCT GLUCOSE (AUTOMATED) 2021-12-09 18:59:00 Colt Astorga [facility] HB HLA I TYPING COMPLETE 2021-12-09 17:56:00 Nicho Upton [facility] LR DNA [facility] HB HLA CLASS I AB HIGH 2021-12-09 17:56:00 [facility]AL [facility] EKG-12 LEAD 2021-12-09 16:48:51 Doctor Unassigned, [facility] [place] [facility] POCT GLUCOSE (AUTOMATED) 2021-12-09 16:29:00 Colt Astorga [facility] POCT GLUCOSE (AUTOMATED) 2021-12-09 13:10:00 Colt Astorga [facility] POCT GLUCOSE (AUTOMATED) 2021-12-09 10:26:00 Colt Astorga [facility] MAGNESIUM 2021-12-09 09:19:00 Raman [facility] BASIC METABOLIC PANEL (NA, 2021-12-09 09:19:00 Jaylin Camargo [facility] K, CL, CO2, GLUCOSE, BUN, Medica l Branch CREATININE, CA) CBC WITH DIFF 2021-12-09 09:19:00 [facility] POCT GLUCOSE (AUTOMATED) 2021-12-09 06:58:00 Colt Astorga [facility] POCT GLUCOSE (AUTOMATED) 2021-12-09 04:00:00 Colt Astorga [facility] POCT GLUCOSE (AUTOMATED) 2021-12-09 00:50:00 Colt Astorga [facility] BLOOD CULTURE SCREEN 2021-12-08 22:18:00 Jaylin Camargo [facility] CBC WITH DIFF 2021-12-08 21:31:00 Pino Restrepo [facility] POCT GLUCOSE (AUTOMATED) 2021-12-08 21:14:00 Colt Astorga [facility] TRANSFUSE PLATELETS 2021-12-08 19:15:00 Jaylin Camargo [facility] PREPARE PLATELETS 2021-12-08 19:08:27 Raman [facility] POCT GLUCOSE (AUTOMATED) 2021-12-08 19:08:00 Colt Astorga [facility] POCT GLUCOSE (AUTOMATED) 2021-12-08 17:10:00 Colt Astorga [facility] POCT GLUCOSE (AUTOMATED) 2021-12-08 13:45:00 Colt Astorga [facility] POCT GLUCOSE (AUTOMATED) 2021-12-08 11:31:00 Colt Astorga [facility] MAGNESIUM 2021-12-08 11:22:00 Raman [facility] BASIC METABOLIC PANEL (NA, 2021-12-08 11:22:00 Jaylin Camargo [facility] K, CL, CO2, GLUCOSE, BUN, Medica l Branch CREATININE, CA) CBC WITH DIFF 2021-12-08 11:22:00 Raman [facility] TRANSFUSE PLATELETS 2021-12-08 08:37:00 Suresh Bentley [facility] PREPARE PLATELETS 2021-12-08 08:28:56 [facility] PO[facility]SE (AUTOMATED) 2021-12-08 08:24:00 Clot [facility] BASIC METABOLIC PANEL (NA, 2021-12-08 04:46:00 Ai Bentley [facility] K, CL, CO2, GLUCOSE, BUN, Medica l Branch CREATININE, CA) CBC WITH DIFF 2021-12-08 04:46:00 Lauro [facility] POCT GLUCOSE (AUTOMATED) 2021-12-08 03:52:00 Colt Astorga [facility] POCT GLUCOSE (AUTOMATED) 2021-12-08 01:24:00 Colt Astorga [facility] POCT GLUCOSE (AUTOMATED) 2021-12-07 21:54:00 Colt Astorga [facility] CBC WITH DIFF 2021-12-07 19:41:00 Lauro [facility] POCT GLUCOSE (AUTOMATED) 2021-12-07 19:14:00 Colt Astorga [facility] VANCOMYCIN TROUGH 2021-12-07 17:47:00 [facility] (AUTOMATED) 2021-12-07 15:56:00 Colt Astorga [facility] MAGNESIUM 2021-12-07 14:16:00 Raman [facility] BASIC METABOLIC PANEL (NA, 2021-12-07 14:16:00 Jaylin Camargo [facility] K, CL, CO2, GLUCOSE, BUN, Medica l Branch CREATININE, CA) CBC WITH DIFF 2021-12-07 14:15:00 [facility] FIBRINOGEN 2021-12-07 13:18:00 Raman [facility] POCT GLUCOSE (AUTOMATED) 2021-12-07 12:33:00 Colt Astorga [facility] TRANSFUSE PLATELETS 2021-12-07 11:40:00 Suresh Bentley [facility] PREPARE PLATELETS 2021-12-07 11:30:59 Mc Suresh [facility] TRANSFUSE PACKED RBC 2021-12-07 07:32:00 Suresh Bentley [facility] PREPARE PACKED RBC 2021-12-07 07:24:01 Mc Suresh [facility] IONIZED CALCIUM 2021-12-07 03:27:00 Suresh Bentley [facility] BASIC METABOLIC PANEL (NA, 2021-12-07 03:27:00 Lauro [facility] K, CL, CO2, GLUCOSE, BUN, Medica l Branch CREATININE, CA) CBC WITHOUT DIFF 2021-12-07 03:27:00 Lauro Pino [facility] POCT GLUCOSE (AUTOMATED) 2021-12-07 01:18:00 Colt Astorga [facility] IONIZED CALCIUM 2021-12-06 22:01:00 Suresh Bentley [facility] POCT GLUCOSE (AUTOMATED) 2021-12-06 21:33:00 Colt Astorga [facility] WOUND/ASPIRATE OR ABSCESS 2021-12-06 21:20:00 Lauro [facility] CULTURE [facility] WOUND CULTURE 2021-12-06 21:20:00 Lauro [facility] CBC WITHOUT DIFF 2021-12-06 20:29:00 Lauro [facility] VANCOMYCIN TROUGH 2021-12-06 19:24:00 [facility] OCCULT (GUAIAC) BLOOD 2021-12-06 19:20:00 Suresh Bentley [facility] POCT GLUCOSE (AUTOMATED) 2021-12-06 16:00:00 Colt Astorga [facility] CBC WITH DIFF 2021-12-06 15:45:00 Suresh Bentley [facility] BASIC METABOLIC PANEL (NA, 2021-12-06 12:50:00 Colt Astorga [facility] K, CL, CO2, GLUCOSE, BUN, Medica l Branch CREATININE, CA) CBC WITH DIFF 2021-12-06 12:50:00 Joe [facility] POCT GLUCOSE (AUTOMATED) 2021-12-06 12:41:00 Colt Astorga [facility] TRANSFUSE PACKED RBC 2021-12-06 11:30:00 Suresh Bentley [facility] XR CHEST 1 VW 2021-12-06 11:00:31 Joe [facility] PREPARE PACKED RBC 2021-12-06 10:14:34 Suresh Bent[facility] HSV 1&2, VZV NAAT 2021-12-06 05:51:00 Suresh Bentley [facility] sity [facility] MAGNESIUM 2021-12-06 05:49:00 Suresh Bentley [facility] COMP. METABOLIC PANEL 2021-12-06 05:49:00 Suresh Bentley [facility] ([id number]) [facility] CBC WITH DIFF 2021-12-06 05:49:00 Suresh Bentley [facility] TRANSFUSE PLATELETS 2021-12-06 02:50:00 Colt Astorga [facility] PREPARE PLATELETS 2021-12-06 02:21:17 Joe [facility] POCT GLUCOSE (AUTOMATED) 2021-12-06 01:47:00 Joe [facility] URINALYSIS 2021-12-05 22:54:00 Joe [facility] URINE CULTURE 2021-12-05 22:54:00 Joe [facility] POCT GLUCOSE (AUTOMATED) 2021-12-05 22:01:00 Terminella, Pino U [facility] BLOOD CULTURE SCREEN 2021-12-05 18:47:00 [facility] PROCALCITONIN 2021-12-05 18:47[facility]00 [facility] 2021-12-05 18:36:[address] [facility] [place] POCT GLUCOSE (AUTOMATED) 2021-12-05 17:40:00 Terminella, Pino U [facility] HB ABO GROUPING 2021-12-05 15:45:00 Joe [facility] POCT GLUCOSE (AUTOMATED) 2021-12-05 12:44:00 Terminella, Pino U [facility] CBC WITH DIFF 2021-12-05 11:03:00 Joe [facility] POCT GLUCOSE (AUTOMATED) 2021-12-05 10:05:00 [facility]ella[facility] ([facility]) 2021-12-05 05:47:00 Terminella, [facility] PO[facility]SE (AUTOMATED) 2021-12-05 01:15:00 Terminella, [facility] PO[facility]SE (AUTOMATED) 2021-12-04 21:31:00 Terminella, Pnio U niversity [facility] POCT GLUCOSE (AUTOMATED) 2021-12-04 16:17:00 Terminella, [facility] PO[facility]SE (AUTOMATED) 2021-12-04 12:31:00 Terminella, [facility] BASIC METABOLIC PANEL (NA, 2021-12-04 10:25:00 Colt Astorga [facility] K, CL, CO2, GLUCOSE, BUN, Medica l Branch CREATININE, CA) METHOTREXATE 2021-12-04 10:25:00 Faisal Hebert [facility] CBC WITH DIFF 2021-12-04 10:25:00 Faisal Hebert [facility] POCT GLUCOSE (AUTOMATED) 2021-12-04 09:37:00 Terminella[facility] (AUTOMATED) 2021-12-04 09:08:00 [facility]ella, [facility] PO[facility]SE (AUTOMATED) 2021-12-04 06:24:00 Terminella, [facility] PO[facility] GLU[facility]SE (AUTOMATED) 2021-12-04 02:56:00 Terminella, [facility] PO[facility] GLU[facility]SE (AUTOMATED) 2021-12-03 22:00:00 Terminella, [facility] PO[facility] GLU[facility]SE (AUTOMATED) 2021-12-03 17:11:00 Terminella, [facility] POCT GLU[facility]SE (AUTOMATED) 2021-12-03 15:31:00 Terminella, Pino U [facility] TRANSFUSE PACKED RBC 2021-12-03 14:37:00 Colt Astorga [facility] PREPARE PACKED RBC 2021-12-03 14:24:52 Colt Astorga [facility] POCT GLUCOSE (AUTOMATED) 2021-12-03 13:12:00 Terminella, Pino U niversity [facility] MAGNESIUM 2021-12-03 10:30:[address] [facility] BASIC METABOLIC PANEL (NA, 2021-12-03 10:30:00 Jaylin Camargo [facility] K, CL, CO2, GLUCOSE, BUN, Medica l Branch CREATININE, CA) CBC WITH DIFF 2021-12-03 10:30:[address] [facility] POCT GLUCOSE (AUTOMATED) 2021-12-03 10:29:00 Terminella, Pino U niversity [facility] POCT GLUCOSE (AUTOMATED) 2021-12-03 06:53:00 Terminella, Pino U niversity [facility] POCT GLUCOSE (AUTOMATED) 2021-12-03 04:52:00 Terminella, Pino U niversity [facility] POCT GLUCOSE (AUTOMATED) 2021-12-03 04:04:00 Terminella, Pino U niversity [facility] POCT GLUCOSE (AUTOMATED) 2021-12-03 03:00:00 Terminella, Pino U niversity [facility] POCT GLUCOSE (AUTOMATED) 2021-12-03 02:13:00 Terminella, [facility] BASIC METABOLIC PANEL (NA, 2021-12-02 23:02:00 Jaylin Camargo U [facility] K, CL, CO2, GLUCOSE, BUN, Medica l Branch CREATININE, CA) POCT GLUCOSE (AUTOMATED) 2021-12-02 23:01:00 Terminella, Pino U niversity [facility] POCT GLUCOSE (AUTOMATED) 2021-12-02 19:53:00 Terminella, Pino U niversity [facility] POCT GLUCOSE (AUTOMATED) 2021-12-02 18:27:00 Terminella, Pino U niversity [facility] POCT GLUCOSE (AUTOMATED) 2021-12-02 16:55:00 Terminella, Pino U niversity [facility] POCT GLUCOSE (AUTOMATED) 2021-12-02 16:13:00 Terminella, Pino U niversity [facility] POCT GLUCOSE (AUTOMATED) 2021-12-02 15:22:00 Terminella, Pino U niversity [facility] POCT GLUCOSE (AUTOMATED) 2021-12-02 14:08:00 Terminella, Pino U niversity [facility] METHOTREXATE 2021-12-02 14:06:00 Norm Abad [facility] BASIC METABOLIC PANEL (NA, 2021-12-02 14:05:00 [facility]Vanessa [facility] K, CL, CO2, GLUCOSE, BUN, Medica l Branch CREATININE, CA) POCT GLUCOSE (AUTOMATED) 2021-12-02 13:05:00 Terminella, Pino [facility] POCT GLUCOSE (AUTOMATED) 2021-12-02 12:13:00 Terminella, Pino [facility] BASIC METABOLIC PANEL (NA, 2021-12-02 11:26:00 Albustami, Leonard U [facility] K, CL, CO2, GLUCOSE, BUN, Medica l Branch CREATININE, CA) POCT GLUCOSE (AUTOMATED) 2021-12-02 11:08:00 Terminella, Pino U [facility] POCT GLUCOSE (AUTOMATED) 2021-12-02 10:13:00 Terminella, Pino [facility] POCT GLUCOSE (AUTOMATED) 2021-12-02 09:12:00 Terminella, Pino U [facility] PHOSPHORUS 2021-12-02 08:05:00 Coco, Mnuriel [facility] ALBUMIN 2021-12-02 08:05:00 [facility] MAGNESIUM 2021-12-02 08:05:00 [facility] BASIC METABOLIC PANEL (NA, 2021-12-02 08:05:00 [facility], CL, CO2, GLUCOSE, BUN, Medica l Branch CREATININE, CA) INTACT PTH CALCIUM GROUP 2021-12-02 08:05:00 Twyla Sepulveda [facility] CBC WITH DIFF 2021-12-02 08:05:00 [facility] ([facility]OMATED) 2021-12-02 08:05:00 Terminella, Pino U [facility] POCT GLUCOSE (AUTOMATED) 2021-12-02 07:10:00 Terminella, Pino U [facility] POCT GLUCOSE (AUTOMATED) 2021-12-02 05:54:00 Terminella, Pino [facility] TRANSFUSE PLATELETS 2021-12-02 05:31:00 Norm Abad [facility] BASIC METABOLIC PANEL (NA, 2021-12-02 05:15:00 Terminangy, [facility] K, CL, CO2, GLUCOSE, BUN, Medica l Branch CREATININE, CA) POCT GLUCOSE (AUTOMATED) 2021-12-02 05:13:00 Terminella, Pino U [facility] PREPARE PLATELETS 2021-12-02 04:51:39 [facility] PO[facility] (AUTOMATED) 2021-12-02 03:57:00 Terminella, Pino U [facility] POCT GLUCOSE (AUTOMATED) 2021-12-02 03:07:00 Terminella, Pino U [facility] BASIC METABOLIC PANEL (NA, 2021-12-02 02:23:00 Terminella, [facility] K, CL, CO2, GLUCOSE, BUN, Medica l Branch CREATININE, CA) POCT GLUCOSE (AUTOMATED) 2021-12-02 02:16:00 Terminella, Pino U [facility] POCT GLUCOSE (AUTOMATED) 2021-12-02 01:04:00 Terminella, Pino U [facility] ABORH CONFIRMATION (LAB 2021-12-02 00:40:00 Norm Abad [facility] ONLY) [facility] POCT GLUCOSE (AUTOMATED) 2021-12-02 00:04:00 Terminella, Pino [facility] BASIC METABOLIC PANEL (NA, 2021-12-01 23:41:00 Terminangy, [facility] K, CL, CO2, GLUCOSE, BUN, Medica l Branch CREATININE, CA) ANTIGEN TYPING PATIENT 2021-12-01 23:40:00 [facility]BO [facility]ING 2021-12-01 23:40:00 Norm Abad андрей [facility] POCT GLUCOSE (AUTOMATED) 2021-12-01 23:01:00 Terminella, Pino U [facility] POCT GLUCOSE (AUTOMATED) 2021-12-01 22:05:00 [facility] PROTEIN CREAT RATIO URINE 2021-12-01 21:18:00 Twyla Sepulveda [facility] TOTAL PROTEIN, URINE 2021-12-01 21:18:00 Twyla Sepulveda [facility] UREA NITROGEN, URINE 2021-12-01 21:18:00 Twyla Sepulveda [facility] SODIUM, URINE RANDOM 2021-12-01 21:18:00 Twyla Sepulveda [facility] URINALYSIS 2021-12-01 20:22:00 Lauro [facility] MRSA / MSSA SCREEN BY PCR, 2021-12-01 20:13:00 Lauro Pino [facility] NARES [facility] PHOSPHORUS 2021-12-01 20:12:00 Lauro [facility] MAGNESIUM 2021-12-01 20:12:00 Lauro [facility] OSMOLALITY, SERUM OR 2021-12-01 20:12:00 Pino Restrepo [facility] PLASMA [facility] BETA HYDROXY-BUTYRATE 2021-12-01 20:12:00 [facility] GLYCOS[facility] HEMOGLOBIN 2021-12-01 20:12:00 Pino Restrepo [facility] (A1C) [facility] HEPATITIS B SURFACE 2021-12-01 20:12:00 Norm Abad [facility] HIV 1/2 AG-AB WITH REFLEX 2021-12-01 20:12:00 Norm Abad [facility] POCT GLUCOSE (AUTOMATED) 2021-12-01 19:28:00 Pino Restrepo [facility] LACTATE DEHYDROGENASE 2021-12-01 18:43:00 Norm Abad [facility] HAPTOGLOBIN, SERUM 2021-12-01 18:43:00 Norm Abad [facility] C-REACTIVE PROTEIN 2021-12-01 18:43:00 Pino Restrepo [facility] TOTAL IRON BINDING 2021-12-01 18:43:00 Malone Anup, [facility] CAPACITY [facility] BASIC METABOLIC PANEL (NA, 2021-12-01 18:43:00 Colt Astorga [facility] K, CL, CO2, GLUCOSE, BUN, Medica l Branch CREATININE, CA) IRON PANEL 2021-12-01 18:43:00 Coco, [facility] HEPATITIS B SURFACE 2021-12-01 18:43:00 [facility] ANTIBODY [facility] HCV ANTIBODY 2021-12-01 18:43:00 [facility] (IGM & IGG) 2021-12-01 18:43:00 [facility] ARTERIAL BLOOD 2021-12-01 17:31:00 Colt Astorga [facility] GAS [facility] POCT GLUCOSE (AUTOMATED) 2021-12-01 16:33:00 Ayesha Bateman [facility] XR CHEST 1 VW 2021-12-01 16:07:03 Colt Astorga [facility] URIC ACID 2021-12-01 15:25:00 [facility] FERRITIN SERUM 2021-12-01 15:25:00 [facility] VITAMIN B12, LEVEL 2021-12-01 15:25:00 [facility] BETA HYDROXY-BUTYRATE 2021-12-01 15:25:00 Colt Astorga [facility] HEPATIC FUNCTION PANEL 2021-12-01 15:25:00 Faisal Hebert [facility] ([id number]) (ALB,T.PRO,BILI Medical Branch T,BU/BC,ALT,AST,ALK PHOS) BASIC METABOLIC PANEL (NA, 2021-12-01 14:19:00 Colt Astorga [facility] K, CL, CO2, GLUCOSE, BUN, Medica l Branch CREATININE, CA) POCT GLUCOSE (AUTOMATED) 2021-12-01 12:57:00 Ayesha Bateman [facility] URINALYSIS 2021-12-01 11:17:00 Ayesha Bateman [facility] BLOOD CULTURE SCREEN 2021-12-01 11:07:00 Ayesha Bateman [facility] BLOOD CULTURE SCREEN 2021-12-01 11:00:00 Ayesha Bateman [facility] CBC WITHOUT DIFF 2021-12-01 10:59:00 Ayesha [facility] GLYCOSYLATED HEMOGLOBIN 2021-12-01 10:59:00 Colt Astorga [facility] (A1C[facility] PROTHROMBIN TIME / INR 2021-12-01 10:59:00 [facility] ACTIVATED PARTIAL THRMPLAS 2021-12-01 10:59:00 Keli Dickerson [facility] RETICULOCYTES AUTOMATED 2021-12-01 10:59:00 Norm Abad [facility] RAPID STREP SCREEN FOR 2021-11-29 15:00:00 Catarina Marcus [facility] GROUP A Medical Branch CONSENT/REFUSAL FOR 2021-11-29 14:13:09 Doctor Plunkett [facility] DIAGNOSIS AND TREATMENT [facility] NOTICE OF PRIVACY 2021-11-10 05:41:29 Doctor Plunkett [facility] PRACTICES [facility] CONSENT/REFUSAL FOR 2021-11-10 05:35:53 Doctor Plunkett [facility] DIAGNOSIS AND TREATMENT [facility] CONSENT/REFUSAL FOR 2021-09-03 18:13:12 [facility] DIAGNOSIS AND TREATMENT [facility] ASSIGNMENT OF BENEFITS 2021-09-03 18:12:54 Doctor Plunkett [facility] [place] EXTERNAL PROVIDER RECORDS 2021-07-29 06:01:00 Doctor Plunkett [facility] [place] [facility] CONSENT/REFUSAL FOR 2021-06-12 13:16:46 [facility] DIAGNOSIS AND TREATMENT [facility] PATIENT FINANCIAL 2021-02-05 16:00:55 Doctor Unassigned, [facility] POLICY [facility] NO SHOW OR MISSED 2021-02-05 16:00:22 Doctor Unassigned, [facility] APPOINTMENT POLICY [place] [facility] ACKNOWLEDGEMENT NOTICE OF PRIVACY 2021-02-05 15:59:57 Doctor Unassigned, [facility] PRACTICES [facility] CONSENT/REFUSAL FOR 2021-02-05 15:59:37 Doctor Unassigned, [facility] DIAGNOSIS AND TREATMENT [facility] ASSIGNMENT OF BENEFITS 2021-02-05 15:59:15 Doctor Unassigned, [facility] Arthroscopy of knee with Jose Rodriguez meniscus repair Laminectomy and discectomy Landon Rodriguez [facility] Plan of Care Planned Activity Planned Date Details Comments Source Future Scheduled 2022-06-[address] [facility] Test 00:00:00 (12+) [code = Medical Center DEPRESSION SCREENING (12+)] Future Scheduled 2022-06-[address] [facility] Test 00:00:00 (12+) [code = [facility] DEPRESSION SCREENING (12+)] Future Scheduled 2022-06-[address] [facility] 00:00:00 (12+) [code = Medical Center DEPRESSION SCREENING (12+)] Future Scheduled 2022-06-[address] [facility] 00:00:00 (12+) [code = Medical Center DEPRESSION SCREENING (12+)] Future Scheduled 2022-02-10 INFLUENZA VACCINE (#1) [facility] [code = INFLUENZA Medical Ce nter VACCINE (#1)] Future Scheduled 2022-02-10 INFLUENZA VACCINE (#1) [facility] 00:00:00 [code = INFLUENZA Medical Ce nter VACCINE (#1)] Future Scheduled 2022-02-10 INFLUENZA VACCINE (#1) [facility] 00:00:00 [code = INFLUENZA Medical Ce nter VACCINE (#1)] Future Scheduled 2022-02-10 INFLUENZA VACCINE (#1) [facility] 00:00:00 [code = INFLUENZA Medical Ce nter VACCINE (#1)] Future Scheduled 2008 SHINGLES VACCINES ([address] [facility] 00:00:00 2) [code = SHINGLES [facility] VACCINES (1 of 2)] Future Scheduled 2008 SHINGLES VACCINES ([address] [facility] 00:00:00 2) [code = SHINGLES [facility] VACCINES (1 of 2)] Future Scheduled 2008 SHINGLES VACCINES ([address] [facility] 00:00[facility]00 [facility] Future Scheduled 2008 SHINGLES VACCINES ([address] [facility] 00:00:00 2) [code = SHINGLES [facility] VACCINES (1 of 2)] Future Scheduled 2003 Lipid panel (procedure) [facility] 00:00:00 [code = 39644171] Medical Ce nter Future Scheduled 2003 Lipid panel (procedure) [facility] 00:00:00 [code = 87740309] Medical Ce nter Future Scheduled 2003 Lipid panel (procedure) [facility] 00:00:00 [code = 33737070] Medical Ce nter Future Scheduled 2003 Lipid panel (procedure) [facility] 00:00:00 [code = 70518553] Medical Ce nter Future Scheduled 1979 Screening for malignant [facility] 00:00:00 neoplasm of cervix Medical C enter (procedure) [code = 835979689] Future Scheduled 1979 Screening for malignant [facility] 00:00:00 neoplasm of cervix Medical C enter (procedure) [code = 335743049] Future Scheduled 1979 Screening for malignant [facility] 00:00:00 neoplasm of cervix Medical C enter (procedure) [code = 817970577] Future Scheduled 1979 Screening for malignant [facility] 00:00:00 neoplasm of cervix Medical C enter (procedure) [code = 559622643] Future Scheduled 1977 DTAP/TDAP/TD [facility]ACCINES [facility] 00[facility]00:00 (1 - Tdap) [code = Medical C enter DTAP/TDAP/TD VACCINES (1 - Tdap)] Future Scheduled 1977 DTAP/TDAP/TD VACCINES [facility] 00:00:00 (1 - Tdap) [code = Medical C enter DTAP/TDAP/TD VACCINES (1 - Tdap)] Future Scheduled 1977 DTAP/TDAP/TD [facility]ACCINES [facility] 00:00:00 (1 - Tdap) [code = Medical C enter DTAP/TDAP/TD VACCINES (1 - Tdap)] Future Scheduled 1977 DTAP/TDAP/TD [facility]ACCINES [facility] 00:00:00 (1 - Tdap) [code = Medical C enter DTAP/TDAP/TD VACCINES (1 - Tdap)] Future Scheduled [address] [facility] 00:00:00 Counseling and Medical Cente r Screening (12+) [code = Tobacco Cessation Counseling and Screening (12+)] Future Scheduled [address] [facility] 00:00:00 Counseling and Medical Cente r Screening (12+) [code = Tobacco Cessation Counseling and Screening (12+)] Future Scheduled [address] [facility] 00:00:00 Counseling and Medical Cente r Screening (12+) [code = Tobacco Cessation Counseling and Screening (12+)] Future Scheduled [address] [facility] 00:00:00 Counseling and Medical Cente r Screening (12+) [code = Tobacco Cessation Counseling and Screening (12+)] Future Scheduled 1958 COVID-19 VACCINE (#1) [facility] 00:00:00 [code = COVID-[address] VACCINE (#1)] Future Scheduled 1958 COVID-19 VACCINE (#1) [facility] 00:00:00 [code = COVID-[address] VACCINE (#1)] Future Scheduled 1958 COVID-19 VACCINE (#1) [facility] 00:00:00 [code = COVID-[address] VACCINE (#1)] Future Scheduled 1958 COVID-19 VACCINE (#1) [facility] 00:00:00 [code = COVID-[address] VACCINE (#1)] Future Scheduled 1958 Screening for malignant [facility] 00:00:00 neoplasm of breast Medical C enter (procedure) [code = 070193740] Future Scheduled 1958 CT Colonography (combo) [facility] 00:00:00 [code = CT [facility] ([facility])] Future Scheduled 1958 Screening for malignant [facility] 00:00:00 neoplasm of colon Medical Ce nter (procedure) [code = 155950819] Future Scheduled 1958 Screening for malignant [facility] 00:00:00 neoplasm of colon Medical Ce nter (procedure) [code = 272670165] Future Scheduled 1958 Screening for malignant [facility] 00:00:00 neoplasm of colon Medical Ce nter (procedure) [code = 636736420] Future Scheduled 1958 Screening for malignant [facility] 00:00:00 neoplasm of colon Medical Ce nter (procedure) [code = 385130656] Future Scheduled 1958 Sigmoidoscopy [code = [facility] Sigmoidoscopy] Medical Cente r Future Scheduled 1958 Screening for malignant [facility] 00:00:00 neoplasm of breast Medical C enter (procedure) [code = 883069948] Future Scheduled 1958 CT Colonography (combo) [facility] 00:00:00 [code = CT Colonography [facility] (combo)] Future Scheduled 1958 Screening for malignant [facility] 00:00:00 neoplasm of colon Medical Ce nter (procedure) [code = 691303932] Future Scheduled 1958 Screening for malignant [facility] 00:00:00 neoplasm of colon Medical Ce nter (procedure) [code = 250914935] Future Scheduled 1958 Screening for malignant [facility] 00:00:00 neoplasm of colon Medical Ce nter (procedure) [code = 755899438] Future Scheduled 1958 Screening for malignant [facility] 00:00:00 neoplasm of colon Medical Ce nter (procedure) [code = 155965502] Future Scheduled 1958 Sigmoidoscopy [code = [facility] Sigmoidoscopy] Medical Jeffreye r Future Scheduled 1958 Screening for malignant [facility] 00:00:00 neoplasm of breast Medical C enter (procedure) [code = 639376894] Future Scheduled 1958 CT Colonography (combo) [facility] 00:00:00 [code = CT Colonography [facility] (combo)] Future Scheduled 1958 Screening for malignant [facility] 00:00:00 neoplasm of colon Medical Ce nter (procedure) [code = 506407809] Future Scheduled 1958 Screening for malignant [facility] 00:00:00 neoplasm of colon Medical Ce nter (procedure) [code = 573498933] Future Scheduled 1958 Screening for malignant [facility] 00:00:00 neoplasm of colon Medical Ce nter (procedure) [code = 573946454] Future Scheduled 1958 Screening for malignant [facility] 00:00:00 neoplasm of colon Medical Ce nter (procedure) [code = 968995688] Future Scheduled 1958 Sigmoidoscopy [code [facility] Sigmoidoscopy] Medical Jeffreye r Future Scheduled 1958 Screening for malignant [facility] 00:00:00 neoplasm of breast Medical C enter (procedure) [code = 000721786] Future Scheduled 1958 CT Colonography (combo) [facility] 00:00:00 [code = CT Colonography [facility] (combo)] Future Scheduled 1958 Screening for malignant [facility] 00:00:00 neoplasm of colon Medical Ce nter (procedure) [code = 908791492] Future Scheduled 1958 Screening for malignant [facility] 00:00:00 neoplasm of colon Medical Ce nter (procedure) [code = 656062332] Future Scheduled 1958 Screening for malignant [facility] 00:00:00 neoplasm of colon Medical Ce nter (procedure) [code = 635727933] Future Scheduled 1958 Screening for malignant [facility] 00:00:00 neoplasm of colon Medical Ce nter (procedure) [code = 284581623] Future Scheduled 1958 Sigmoidoscopy [facility]code [facility] Sigmoidoscopy] Medical Cente r Encounters Start End Encounter Admission Attending Care Care Encounter Source Date/Time Date/Time Type Type Clinicians Facility Department ID 2022-06-07 Outpatient [facility] [id number] [place] 11:31:16 [facility] 2022-04-15 Outpatient [facility] [id number] [place] 13:30:23 [facility] 2022-02-09 Outpatient SYSTEM, BRIANA WARREN [id number] 17:32:57 PROVIDER Yariel france 2021-07-07 Outpatient ASSASSI, [facility] [id number] [place] 13:17:48 [facility] 2021-05-27 Outpatient CHAUDHRI, [facility] [id number] [place] 11:53:21 [facility] 2021-01-21 Outpatient CHAUDHRI, [facility] [id number] [place] 11:08:40 [facility] 2020-11-04 Outpatient CHAUDHRI, [facility] [id number] [place] 12:32:24 [facility] 2020-10-27 Outpatient CHAUDHRI, [facility] [id number] [place] 09:13:17 [facility] 2020-10-17 Outpatient CHAUDHRI, [facility] [id number] [place] 04:20:12 [facility] 2022-10-20 2022-10-20 Outpatient ASSASSI, [facility] [id number] [place] 11:00:00 11:00:00 [facility] 2022-07-19 2022-07-19 Outpatient AUSTIN, [facility] [id number] [place] 10:15:00 10:15:00 [facility] 2022-06-07 2022-06-07 Office [place], UTP 6410 [id number] [place] 10:00:00 11:34:27 Visit FABIO OREILLY 350.1.13.58 [facility] 9.2.7.2.686 [id number] 3 2022-04-14 2022-04-14 Office Assassi, [facility] 6410 1.2.310.880 [id number] [place] 14:30:00 15:04:[address] 350.1.13.58 Health 9.2.7.2.686 [id number] 9 2022-04-04 2022-04-04 Outpatient Rosaura [facility] [id number] Univers 00:00:00 00:00:00 kirill WEINBERG [facility] 2022-03-08 2022-03-08 Office [place], UTP 6410 1.2.196.660 [id number] [place] 08:20:00 09:18:[address] 350.1.13.58 Health 9.2.7.2.686 [id number] 3 2022-01-25 2022-01-25 Office [place], [facility] 6410 1.2.974.545 [id number] [place] 09:20:00 10:46:[address] 350.1.13.58 Health 9.2.7.2.686 [id number] 3 2022-01-05 2022-01-05 Telephone No, Pcp UTP 6410 1.2.840.114 [id number] [place] 00:00:00 00:00:00 No, Pcp FABIO ST 350.1.13.58 Health 9.2.7.2.686 [id number] 3 2022-01-03 2022-01-03 Lab [facility] [id number] [facility]22-[facility]-03 [facility] [id number] 00:00:00 00:00:00 Requisitio [facility] 2022-01-03 2022-01-03 Lab [facility] [id number] 00:[facility]00 [facility] 2022-01-03 2022-01-03 Lab [facility] [id number] 00:00:00 00:00:00 Requitio [facility] 2022-01-02 2022-01-02 Telephone José [facility] 6410 1.2.840.114 [id number] [place] 00:00:00 00:00:[address] 350.1.13.58 Health 9.2.7.2.686 [id number] 9 2021-12-31 2021-12-31 Telephone Tito [facility] 6410 1.2.840.114 [id number] [place] 00:00:00 00:00:[address] 350.1.13.58 Health 9.2.7.2.686 [id number] 9 2021-12-31 2021-12-31 Orders Doctor KEKE 1.2.840.[id number] [place] [address] 00:00:00 00:00:00 Only Unassigned, JOE 350.1.13.10 ity of [place] [facility] 4.2.7.2.686 Armin as [id number] [facility] [address] 2021-12-30 2021-12-30 Office RICHMOND Gomez [id number] 10:00:00 11:04:[address] 350.1.13.58 Health 9.2.7.2.686 [id number] 9 2021-12-16 2021-12-16 [facility] 1.2.840.114 [id number] Univers 00:00:00 00:00:00 Otto MULTISPEC 350.1.13.10 [place] [id number] [facility] [place] [place] [address] [facility] 2021-12-16 2021-12-16 Transition HARMONY Madden 1.2.840.114 [id number] Univers 00:00:00 00:00:00 of Care Oksana VELASQUEZ 350.1.13.10 i [place] [id number] [facility] [address] 2021-12-16 2021-12-16 Tele[facility] 1.2.840.114 [id number] Univers 00:00:00 00:00:00 [facility] MULTISPEC 350.1.13.10 ity of [place] 4.2.7.2.686 [facility] [id number] [address] [facility] 2021-12-01 2021-12-15 Inpatient U DANIEL [facility] OPAL [id number] Univers 04:26:00 14:53:00 OTTO ity of [facility] 2021-12-01 2021-12-15 Hospital Ayesha ScottErika taylor [facility] 1.2 .840.114 [id number] Univers 04:26:00 14:53:00 Encounter Joe [facility] 350.1.13.10 ity of [place] 4.2.7.2.686 [facility] [id number] [address] ([facility]) 2021-11-29 2021-11-29 Emergency [facility] ERT [id number] Univers 09:18:00 10:44:00 CATARINA ity of [facility] 2021-11-29 2021-11-29 Emergency [facility] 1.2.840.114 [id number] Univers 09:18:00 10:44:00 Catarina BLACKMAN 350.1.13.10 ity of [place] 4.2.7.2.[address] [place] [id number] 2021-11-10 2021-11-10 Emergency X Lexy BUTLER [facility] ERT [id number] Univers 01:12:00 02:40:00 ity of [facility] 2021-11-10 2021-11-10 Emergency Lexy Butler [facility] 1.2.840.114 [id number] Univers 01:12:00 02:40:00 Rhiannon BLACKMAN 350.1.13.10 i ty of [place] 4.2.7.2.[address] [place] [id number] 2021-09-09 2021-09-09 Office RICMHOND Gomez 6410 1.2.764.160 [id number] [place] 11:00:00 11:50:14 Visit Bhanu OREILLY 350.1.13.58 Health 9.2.7.2.686 [id number] 9 2021-09-03 2021-09-03 Outpatient R [facility] RAD [id number] Univers 13:13:04 23:59:00 DACA, ity of [facility] 2021-09-03 2021-09-03 [facility] 1.2.840.114 [id number] Univers 13:00:00 23:59:00 Encounter Beverlyalexey HIRAL 350.1.13.10 ity of [facility] 4.2.7.2.686 [facility] [id number] [facility] [address] 2021-07-29 2021-07-29 Orders Doctor KEKE 1.2.840.[id number] [place] [address] 00:00:00 00:00:00 Only Unassigned, JOE 350.1.13.10 ity of [place] [facility] 4.2.7.2.686 Armin as [id number] [facility] [address] 2021-07-15 2021-07-15 Telephone RICHMOND Cross 6410 1.2.840.114 1 [id number] [place] 00:00:00 00:00:00 Marii OREILLY 350.1.13.58 Health 9.2.7.2.686 [id number] 3 2021-07-12 2021-07-12 Office RICHMOND Gomez 6410 1.2.832.195 [id number] [place] 13:00:00 13:46:19 Visit Bhanu OREILLY 350.1.13.58 Health 9.2.7.2.686 [id number] 9 2021-06-30 2021-06-30 Telephone RICHMOND Cross 6410 1.2.840.114 1 [id number] [place] 00:00:00 00:00:00 Marii OREILLY 350.1.13.58 Health 9.2.7.2.686 [id number] 3 2021-06-30 2021-06-30 Telephone Suze Cramer 6410 1.2.840. 114 [id number] [place] 00:00:00 00:00:[address] 350.1.13.58 Health 9.2.7.2.686 [id number] 9 2021-06-28 2021-06-28 Telephone Richa Galeano [facility] 6410 1.2.840.1 14 [id number] [place] 00:00:00 00:00:[address] 350.1.13.58 Health 9.2.7.2.686 [id number] 3 2021-06-16 2021-06-16 Telephone Jazmine Vásquez [facility] 6410 1.2.840 .114 [id number] UT 00:00:00 00:00:[address] 350.1.13.58 Health 9.2.7.2.686 [id number] 3 2021-06-12 2021-06-12 Emergency X [facility] E[facility] [id number] Univers 07:31:00 08:02:00 KIM roy [facility] 2021-06-12 2021-06-12 Emergency [facility] 1.2.128.728 [id number] [facility] 07:31:00 08:02:00 Kim BLACKMAN [facility].1.13.10 [facility] 4.2.7.2.686 [facility] [id number] [address] 2021-05-27 2021-05-27 Office RICHMOND Cross [id number] 11:00:00 11:53:[address] 350.1.13.58 Health 9.2.7.2.686 [id number] 3 2021-05-25 2021-05-25 Telephone Stephany Reynoso [facility] [id number] 00:00:00 00:00:[address] 350.1 .13.58 Health 9.2.7.2.686 [id number] 9 2021-04-22 2021-04-22 Office RICHMOND Gomez [id number] 10:16:15 11:51:41 Visit Bhanu OREILLY 350.1.13.58 Health 9.2.7.2.686 [id number] 9 2021-02-28 2021-02-28 Michelle Davila [facility] 6410 1.2.840.114 1 [id number] [place] 00:00:00 00:00:00 Roxann OREILLY 350.1.13.58 Health 9.2.7.2.686 [id number] 3 2021-02-18 2021-02-18 Office Kodi [facility] [id number] 09:28:53 09:58:53 Visit Bhanu OREILLY 350.1.13.58 Health 9.2.7.2.686 [id number] 9 2021-02-05 2021-02-05 [facility] 1.2.840.114 [id number] [facility] 11:00:00 23:59:00 Encounter [facility] Black[facility]13.10 [facility] 4.2.7.2.686 [facility] [id number] [address] 2021-02-05 2021-02-05 Outpatient R THIAGO [facility] RAD [id number] Univers 00:00:00 00:00:00 TIANA roy [facility] 2021-01-21 2021-01-21 Office RICHMOND Cross [id number] 09:51:53 11:08:37 Visit Marii OREILLY 350.1.13.58 Health 9.2.7.2.686 [id number] 3 2021-01-18 2021-01-18 Telephone RICHMOND Cross [id number] 00:00:00 00:00:[address] 350.1.13.58 Health 9.2.7.2.686 [id number] 3 2020-12-30 2020-12-30 Telephone Jazmine Vásquez [facility] 6410 1.2.840 .114 [id number] [place] 00:00:00 00:00:[address] 350.1.13.58 Health 9.2.7.2.686 [id number] 3 2020-12-28 2020-12-28 Richa Escobedo [facility] 6410 1.2.840.114 [id number] UT 00:00:00 00:00:[address] 350.1.13.58 Health 9.2.7.2.686 [id number] 3 2020-12-28 2020-12-28 Telephone Richa Galeano [facility] 6410 1.2.840.1 14 [id number] [place] 00:00:00 00:00:[address] 350.1.13.58 Health 9.2.7.2.686 [id number] 3 2020-12-24 2020-12-24 Refill Jazmine Vásquez [facility]TP [address]840.[id number] 00:00:00 00:00:[address] 350.1.13.58 Health 9.2.7.2.686 [id number] 3 2020-12-24 2020-12-24 Refill Jazmine Vásquez UTP 64[address]2.840.[id number] 00:00:00 00:00:[address] 350.1.13.58 Health 9.2.7.2.686 [id number] 3 2020-12-23 2020-12-23 Orders Richa Galeano [facility] 6410 1.2.840.114 [id number] UT 00:00:00 00:00:[address] 350.1.13.58 Health 9.2.7.2.686 [id number] 3 2020-12-22 2020-12-22 Refill Jazmine Vásquez [facility] [address]840.[id number] 00:00:00 00:00:[address] 350.1.13.58 Health 9.2.7.2.686 [id number] 3 2020-12-21 2020-12-21 Refill Jazmine Vásquez [facility] [address]2.840.[id number] 00:00:00 00:00:[address] 350.1.13.58 Health 9.2.7.2.686 [id number] 3 2020-12-08 2020-12-08 Telephone Shalonda Rojo [facility] [id number] 00:00:00 00:00:[address] 350.1. 13.58 Health 9.2.7.2.686 [id number] 3 2020-11-30 2020-11-30 Orders Richa Galeano [facility] [id number] 00:00:00 00:00:[address] 350.1.13.58 Health 9.2.7.2.686 [id number] 3 2020-10-27 2020-10-27 Office [facility] 64[address] 1.2.840.[id number] 09:13:12 11:15:[address] 350.1.13.58 Health 9.2.7.2.686 [id number] 3 2020-10-20 2020-10-20 Refill Shalonda Rjoo [facility] [id number] 00:00:00 00:00:[address] 350.1. 13.58 Health 9.2.7.2.686 [id number] 3 2018-03-01 2018-03-01 Outpatient MHIE MHIE [id number] [facility] 14:15:00 14:15:00 04 thalia Rodriguez 2018-03-01 2018-03-01 Outpatient MHIE MHIE [id number] [facility] 14:15:00 14:15:00 04 thalia Rodriguez 2018-02-27 2018-02-28 Outpt Diag nullFlavo [facility] [id number] Memoria 14:49:00 04:59:00 Services r Outpatient 02 l Imaging Michael [place] 2018-02-27 2018-02-28 Outpt Diag nullFlavo [facility] [id number] Memoria 14:49:00 04:59:00 Services r Outpatient 02 l Naga Rodriguez [place] 2018-02-27 2018-02-27 [facility] [id number] 09:49:00 23:59:00 Gloria Jessica Torre 2018-01-18 2018-01-18 Outpatient MHIE MHIE [id number] [facility] 14:15:00 14:15:00 03 thalia Rodriguez 2018-01-18 2018-01-18 Outpatient MHIE MHIE [id number] [facility] 14:15:00 14:15:00 03 [place] 2017-12-05 2017-12-05 Outpatient MHIE MHIE [id number] [facility] 16:00:00 16:00:00 02 thalia Rodriguez 2017-12-05 2017-12-05 Outpatient MHIE MHIE [id number] [facility] 16:00:00 16:00:00 02 thalia [place] 2017-11-29 2017-11-29 Outpatient MHIE MHIE [id number] [facility] 11:00:00 11:00:00 01 thalia Rodriguez 2017-11-29 2017-11-29 Outpatient MHIE MHIE [id number] [facility] 11:00:00 11:00:00 01 thalia [place] 2017-11-10 2017-11-10 Outpatient MHIE MHIE [id number] [facility] 09:45:00 09:45:00 00 l [place] 2017-11-10 2017-11-10 Outpatient MHIE MHIE [id number] [facility] 09:45:00 09:45:00 00 thalia Michael Results Test Description Test Time Test Comments Results Result Comments Source POCT glucose manually resulted 2022-06-07 16:27:00 Test Item Value Reference Range Interpretation Comme nts Glucose Blood, POC (test code = 3512989) 158 mg/dL 70-180 [facility] glycosylated hemoglobin (Hb A1C) docked [id number] 16:27:00 Test Item Value Reference Range Interpretation Comments Hemoglobin A1C (test code = 4548-4) 6.8 % 4.0-6.0 A Lab Interpretation (test code = Abnormal 71745-4) [facility] glucose manually [id number] 13:43:00 Test Item Value Reference Range Interpretation Comments Glucose Blood, POC (test code = 254 mg/dL 70-180 A 8260929) Lab Interpretation (test code = Abnormal 48630-0) [facility] [id number] 21:00:00 Test Item Value Reference Range Interpretation [...] See_Comment L The eGFR i s based 051707287) on the CKD-EPI 2020 equation. To calculate the n ew eGFR from a previous Creatinine or Cystatin Cresul t, go to [email or web address]://www.kid ne y.org/professio na carol/kdoqi/gfr%5F ca lculator [Automated message] The system which [...] (test code 89 mmol/L 98-110 L = 2075-0) CARBON DIOXIDE (test 30 mmol/L 20-32 code = 2027-9) CALCIUM (test code = 9.5 mg/dL 8.6-10.4 45956-7) PROTEIN, TOTAL (test 8.3 g/dL 6.1-8.1 H code = 2885-2) ALBUMIN (test code = 3.4 g/dL 3.6-5.1 L 1751-7) GLOBULIN (test code See_Comment H [Automa allison = 83701-1) message] The system which generated this result [...] Information: ? ?Site ID: RGA ? ?Name: [facility] [place] ? ?Address: [address] [place] [address] ? ?Director: COLT FIERRO MD Lab Interpretation Abnormal (test code = 00882-2) CT [id number] 21:00:00 Test Item Value Reference Range Interpretation Comments PHOSPHATE ( 5.3 mg/dL 2.5-4.5 H PHOSPHORUS) (test code = 2777-1) RAC (test code = RAC) Performing Organization Information: ? ?Site ID: [facility] ? ?Name: [facility] ? ?Address: [address] [place] [phone] ? ?Director: COLT FIERRO MD Lab Interpretation (test Abnormal code = 46711-2) [facility], [id number] 21:00:00 Test Item Value Reference Range Interpretation Comments CALCIUM, IONIZED 4.9 mg/dL 4.8-5.6 REPORT (test code = COMMENT:FASTING :Y 13100-5) ES RAC (test code = Performing RAC) Organization Information: ? ?Site ID: [facility] ? ?Name: [facility] ? ?Address: [address] [place], [place] [id number] ? ?Director: COLT FIERRO MD CT [id number] 21:00:00 Test Item Value Reference Range Interpretation Comments MAGNESIUM (test code 2.4 mg/dL 1.5-2.5 = 85443-1) RAC (test code = RAC) Performing Organization Information: ? ?Site ID: [facility] ? ?Name: [facility] ? ?Address: [address] [place] [phone] ? ?Director: COLT FIERRO MD [facility], [id number] 14:33:56 Test Item Value Reference Range Interpretation Comments Hep B C IgM (test code = Nonreactive Nonreactive 61056-9) FINA (test code = FINA) Bee Rancher ID - PIAYA L Lab Interpretation (test Normal code = 34608-6) [facility] A antibody, [id number] 14:33:56 Test Item Value Reference Range Interpretation Comments Hep A IgM (test code = Nonreactive Nonreactive 45813-1) FINA (test code = FINA) Bee Rancher ID - PIAYA L Lab Interpretation (test Normal code = 87067-2) [facility] C [id number] 14:33:56 Test Item Value Reference Range Interpretation Comments Hepatitis C Ab (test Nonreactive Nonreactive code = 33996-5) FINA (test code = FINA) Bee Rancher ID - PIAYA L Lab Interpretation (test Normal code = 84951-5) [facility] B surface [id number] 14:33:56 Test Item Value Reference Range Interpretation Comments Hepatitis B surface Nonreactive Nonreactive antigen (test code = 5195-3) FINA (test code = FINA) Specimen is considered negative for HBsAg. Lab Interpretation (test Normal code = 82378-5) [facility] B surface [id number] 14:33:56 Test Item Value Reference Range Interpretation Comments Hepatitis B surface Nonreactive Nonreactive antigen (test code = 5195-3) FINA (test code = FINA) Specimen is considered negative for HBsAg. Lab Interpretation (test Normal code = 74352-3) [facility] B core antibody, [id number] 14:33:56 Test Item Value Reference Range Interpretation Comments Hep B C IgM (test code = Nonreactive Nonreactive 06128-1) FINA (test code = FINA) Bee Rancher ID - PIAYA L Lab Interpretation (test Normal code = 94021-7) [facility] [id number] 14:33:56 Test Item Value Reference Range Interpretation Comments Hep A IgM (test code = Nonreactive Nonreactive 07831-4) FINA (test code = FINA) Bee Rancher ID - PIAYA L Lab Interpretation (test Normal code = 92459-8) [facility] C [id number] 14:33:56 Test Item Value Reference Range Interpretation Comments Hepatitis C Ab (test Nonreactive Nonreactive code = 25728-4) FINA (test code = FINA) Bee Rancher ID - PIAYA L Lab Interpretation (test Normal code = 97715-3) [facility] B surface [id number] 14:33:56 Test Item Value Reference Range Interpretation Comments Hepatitis B surface Nonreactive Nonreactive antigen (test code = 5195-3) FINA (test code = FINA) Specimen is considered negative for HBsAg. Lab Interpretation (test Normal code = 15797-1) [facility] B core antibody, [id number] 14:33:56 Test Item Value Reference Range Interpretation Comments Hep B C IgM (test code = Nonreactive Nonreactive 85937-8) FINA (test code = FINA) Bee Rancher ID - PIAYA L Lab Interpretation (test Normal code = 63701-8) [facility], [id number] 14:33:56 Test Item Value Reference Range Interpretation Comments Hep A IgM (test code = Nonreactive Nonreactive 57354-3) FINA (test code = FINA) Bee Rancher ID - PIAYA L Lab Interpretation (test Normal code = 32787-7) [facility] [id number] 14:33:56 Test Item Value Reference Range Interpretation Comments Hepatitis C Ab (test Nonreactive Nonreactive code = 87748-1) FINA (test code = FINA) Bee Rancher ID - LISA L Lab Interpretation (test Normal code = 51960-4) [facility] B surface [id number] 14:33:56 Test Item Value Reference Range Interpretation Comments Hepatitis B surface Nonreactive Nonreactive antigen (test code = 5195-3) FINA (test code = FINA) Specimen is considered negative for HBsAg. Lab Interpretation (test Normal code = 94708-2) [facility] B core antibody, [id number] 14:33:56 Test Item Value Reference Range Interpretation Comments Hep B C IgM (test code = Nonreactive Nonreactive 69715-3) FINA (test code = FINA) Bee Rancher ID - LISA L Lab Interpretation (test Normal code = 92518-0) [facility], [id number] 14:33:56 Test Item Value Reference Range Interpretation Comments Hep A IgM (test code = Nonreactive Nonreactive 20067-9) FINA (test code = FINA) Bee Rancher ID - LISA L Lab Interpretation (test Normal code = 73567-1) [facility] [id number] 14:33:56 Test Item Value Reference Range Interpretation Comments Hepatitis C Ab (test Nonreactive Nonreactive code = 59449-8) FINA (test code = FINA) Bee Rancher ID - LISA L Lab Interpretation (test Normal code = 70723-7) [facility] B SURFACE [id number] 14:33:56 Test Item Value Reference Range Interpretation Comments HEPATITIS B SURFACE ANTIGEN (2) Nonreactive Nonreactive (BEAKER) (test code = 2585) Specimen is considered negative for HBsAg.HEPATITIS B CORE ANTIBODY, IGM 2022-01-03 14:33:56 Test Item Value Reference Range Interpretation Comments HEPATITIS B CORE IGM ANTIBODY Nonreactive Nonreactive (BEAKER) (test code = 645) Bee Rancher ID - DOROTHYAVELINO LHEPATITIS C [id number] 14:33:56 Test Item Value Reference Range Interpretation Comments HEPATITIS C ANTIBODY (BEAKER) Nonreactive Nonreactive (test code = 367) Bee Rancher ID - LISA LHEPATITIS A ANTIBODY, [id number] 14:33:56 Test Item Value Reference Range Interpretation Comments HEPATITIS A IGM ANTIBODY (BEAKER) Nonreactive Nonreactive (test code = 498) Bee Rancher ID - PIAYA LCBC and [id number] 19:00:00 Test Item Value Reference Range Interpretation [...] Information: ? ?Site ID: RGA ? ?Name: [facility] [place] ? ?Address: [address] [place], [place] [id number] ? ?Director: COLT FIERRO MD Lab Interpretation Abnormal (test code = 49934-5) [facility] Ohioprehensive metabolic [id number] 19:00:00 Test Item Value Reference Range Interpretation Comments GLUCOSE (test code = 72 mg/dL 65-139 ? ? ? 2345-7) Non-fasting reference interval UREA NITROGEN (BUN) 67 mg/dL 7-25 H (test code = 3094-0) CREATININE (test 3.08 mg/dL 0.5-1.05 H code = 2160-0) EGFR (test code = See_Comment L The eGFR i s based 284455076) on the CKD-EPI 2020 equation. To calculate [...] . SODIUM (test code = 140 mmol/L 893-564 1696-2) POTASSIUM (test code 4.8 mmol/L 3.5-5.3 = 2823-3) CHLORIDE (test code 108 mmol/L 98-110 = 2075-0) CARBON DIOXIDE (test 24 mmol/L 20-32 code = 8-9) CALCIUM (test code = 5.2 mg/dL 8.6-10.4 [place] [address]-1) repeat analysis . PROTEIN, TOTAL (test 7.4 g/dL 6.1-8.1 code = 2885-2) ALBUMIN (test code = 2.4 g/dL 3.6-5.1 L 175-7) GLOBULIN (test code See_Comment H [Automa allison = 64405-9) message] The system which generated this result transmitted reference range : 1.9 - 3.7 g/dL (calc). The reference range was not used to interpret this result as normal/abnormal . ALBUMIN/GLOBULIN See_Comment L [Automated RATIO (test code = message] The 0) system which generated this result transmitted reference range : 1.0 - 2.5 (calc ). The reference range was not used to interpr et this result as normal/abnormal . BILIRUBIN, TOTAL 0.3 mg/dL 0.2-1.2 (test code = 1974-) ALKALINE PHOSPHATASE 113 U/L 37-153 (test code = 6768-6) AST (test code = 11 U/L 10-35 1919-8) ALT (test code = 7 U/L 6-1741-6) RAC (test code = Performing RAC) Organization Information: ? ?Site ID: RGA ? ?Name: [facility] [place] ? ?Address: [address] [place] [phone] ? ?Director: COLT FIERRO MD Lab Interpretation Abnormal (test code = 09732-9) [facility] [id number] 19:00:00 Test Item Value Reference Range Interpretation Comments C-REACTIVE PROTEIN 36.3 mg/L See_Comment H [Automat ed (test code = 1987-10) message ] The system which generated this result transmitted reference range : <=8.0. The reference range was not used to interpret this result as normal/abnormal . RAC (test code = Performing RAC) Organization Information: ? ?Site ID: RGA ? ?Name: [facility] [place] ? ?Address: [address] [place] [phone] ? ?Director: COLT FIERRO MD Lab Interpretation Abnormal (test code = 33381-6) [facility] HealthUrinalysis with reflex [id number] 19:00:00 Test Item Value Reference Range Interpretation Comments COLOR (test code = YELLOW YELLOW 5778-6) APPEARANCE (test CLEAR CLEAR code = 5767-9) SPECIFIC GRAVITY 1.001-1.035 (test code = 5811-5) PH (test code = 5-8 5803-2) GLUCOSE (test code = NEGATIVE NEGATIVE 30700-5) BILIRUBIN (test code NEGATIVE NEGATIVE = 5770-3) KETONES (test code = NEGATIVE NEGATIVE 2514-8) BLOOD, UA (test code NEGATIVE NEGATIVE = 5794-3) PROTEIN (test code = TRACE NEGATIVE A 21190-4) NITRITE (test code = NEGATIVE NEGATIVE 5802-4) LEUKOCYTE ESTERASE NEGATIVE NEGATIVE (test code = 5799-2) WBC (test code = NONE SEEN See_Comment [Automated 5821-4) message] The system which generated this result transmitted reference range : < OR = 5 /HPF. The reference range was not used to interpr et this result as normal/abnormal . RBC (test code = NONE SEEN See_Comment [Automated 74520-5) message] The system which generated this result transmitted reference range : < OR = 2 /HPF. The reference range was not used to interpr et this result as normal/abnormal . SQUAMOUS EPITHELIAL NONE SEEN See_Comment [Automa allison CELLS (test code = message] The 25609-6) system which generated this result transmitted reference range : < OR = 5 /HPF. The reference range was not used to interpr et this result as normal/abnormal . BACTERIA (test code NONE SEEN NONE SEEN /HPF = 5769-5) HYALINE CAST (test NONE SEEN NONE SEEN /LPF code = 5796-8) RAC (test code = Performing RAC) Organization Information: ? ?Site ID: RGA ? ?Name: [facility] [place] ? ?Address: [address] [place] [phone] ? ?Director: COLT FIERRO MD Lab Interpretation Abnormal (test code = 16110-9) CT HealthALBUMIN, RANDOM URINE W/CR (MICROALBUMIN)2021-12-31 19:00:00 Test Item Value Reference Interpretation Comments Range CREATININE, RANDOM 14 mg/dL 20-275 L URINE (test code = 2161-8) ALBUMIN, URINE 7.8 mg/dL Reference Ran geNot (test code = established 69448-7) MICROALBUMIN/CREATI See_Comment H The ADA defines NINE [...] Information: ? ?Site ID: RGA ? ?Name: [facility] [place] ? ?Address: [address] [place] [address] ? ?Director: COLT FIERRO MD Lab Interpretation Abnormal (test code = 44142-9) CT HealthProtein / creatinine ratio, [id number] 19:00:00 Test Item Value Reference Range Interpretation [...] Information: ? ?Site ID: RGA ? ?Name: [facility] [place] ? ?Address: [address] [place] [phone] ? ?Director: COLT FIERRO MD Lab Interpretation Abnormal (test code = 59462-6) CT HealthHemoglobin [id number] 19:00:00 Test Item Value Reference Interpretation Comments [...] children. ? [Automated mess age] The system [employer] h generated this result transmit allison reference range : <5.7 % of total Hgb. The refere nce range was not u sed to interpret th is result as normal/abnormal . RAC (test code = Performing RAC) Organization Information: ? ?Site ID: RGA ? ?Name: [facility] [place] ? ?Address: [address] [place] [address] ? ?Director: COLT FIERRO MD Lab Interpretation Abnormal (test code = 78470-3) CT [id number] 19:00:00 Test Item Value Reference Range Interpretation Comments NOTE (test See Below This urine was code = 8251-1) analyzed for the presence of WBC , RBC, bacteria, casts, and othe r formed elements . Only those elements seen w ere reported. REPOR T COMMENT:FASTING :NO RAC (test code Performing = RAC) Organization Information: ? ?Site ID: RGA ? ?Name: [facility] [place] ? ?Address: [address] [place] [address] ? ?Director: COLT FIERRO MD CT HealthPOCT GLUCOSE (AUTOMATED)2021-12-15 16:49:50 Test Item Value Reference Range Interpretation Comments POCT GLU (test code = 1222923252) 134 mg/dL 70-110 H Lab Interpretation (test code = Abnormal 83995-4) [facility] 13:01:11 Test Item Value Reference Range Interpretation Comments POCT GLU (test code = 0528724465) 172 mg/dL 70-110 H Lab Interpretation (test code = Abnormal 73200-4) [facility]. METABOLIC PANEL (10687)2021-12-15 10:13:04 Test Item Value Reference Range Interpretation Comments NA (test code = 134 mmol/L 135-145 L 5318147720) K (test code = 3.5 mmol/L 3.5-5.0 0330884681) CL (test code = 109 mmol/L 98-108 H 0188822174) CO2 TOTAL (test code = 18 mmol/L 23-31 L 6685520710) AGAP (test code = 2-16 9108143520) BUN (test code = 48 mg/dL 7-23 H 0845774763) GLUCOSE (test code = 183 mg/dL 70-110 H 2057270562) CREATININE (test code = 1.95 mg/dL 0.50-1.04 H 7562702950) TOTAL BILI (test code = 0.5 mg/dL 0.1-1.6 2814124334) CALCIUM (test code = 5.8 mg/dL 8.6-10.6 LL 4737952795) T PROTEIN (test code = 6.0 g/dL 6.3-8.2 L 7841936586) ALBUMIN (test code = 2.0 g/dL 3.5-5.0 L 4397738352) ALK PHOS (test code = 263 U/L 34-122 H 6362731361) ALTv (test code = 18 U/L 5-35 1742-6) AST(SGOT) (test code = 20 U/L 13-40 8834891011) eGFR (test code = mL/min/1.73m2 8727467937) FINA (test code = FINA) Association of [...] tests). Lab Interpretation Abnormal (test code = 04113-9) [facility] GLUCOSE (AUTOMATED)2021-12-15 01:37:21 Test Item Value Reference Range Interpretation Comments POCT GLU (test code = 8264898673) 255 mg/dL 70-110 H Lab Interpretation (test code = Abnormal 14282-8) [facility] GLUCOSE (AUTOMATED)2021-12-14 22:08:00 Test Item Value Reference Range Interpretation Comments POCT GLU (test code = 3946968804) 225 mg/dL 70-110 H Lab Interpretation (test code = Abnormal 38280-1) [facility] GLUCOSE (AUTOMATED)2021-12-14 17:14:50 Test Item Value Reference Range Interpretation Comments POCT GLU (test code = 5904864324) 209 mg/dL 70-110 H Lab Interpretation (test code = Abnormal 41124-0) [facility] [id number] 14:42:37 Test Item Value Reference Range Interpretation Comments ELUTION ID (test code Anti-Jka Perfor med at [facility] = 5160) Laboratory Serv [facility] Blood Bank[address] [place] [address] s [address] Free: [phone] A No. [id number] [facility] MONOSPECIFIC C3 [id number] 14:03:32 Test Item Value Reference Range Interpretation Comments ZACHARY C3 (test code Weak Positive Performed at [facility] = 1421) Laboratory Serv [facility] Blood [facility]3 [address] [facility] [address]Kpcr Free: [phone] A No. [id number] [facility] MONOSPECIFIC IGG [id number] 13:47:45 Test Item Value Reference Range Interpretation Comments ZACHARY IGG (test code Positive 2+ Performed at [facility] = 1422) Laboratory [facility] Blood [facility] [address] [facility] [address]Qmbf Free: [phone] A No. [id number] [facility] POLYSPECIFIC [id number] 13:47:15 Test Item Value Reference Range Interpretation Comments ZACHARY POLY (test Weak Positive Performed at [facility] code = 1610) Laboratory [facility] Blood [facility] [address] [facility] [address]Jwpw Free: [phone] A No. [id number] [facility]ANEL [id number] 13:19:38 ANTIBODY IDAnti-JkaUndetermined Spec Comment: Performed at [facility] Laboratory [facility] Blood [address] [place], [place] [address]Xuls Free: [phone] No. [id number] [facility])2021-12-14 12:43:10 Test Item Value Reference Range Interpretation Comments POCT GLU (test code = 4132720262) 185 mg/dL 70-110 H Lab Interpretation (test code = Abnormal 68694-5) [facility]. METABOLIC PANEL (56548)2021-12-14 09:53:35 Test Item Value Reference Range Interpretation Comments NA (test code = 132 mmol/L 135-145 L 6134841233) K (test code = 3.8 mmol/L 3.5-5.0 5486005628) CL (test code = 110 mmol/L 98-108 H 1828947259) CO2 TOTAL (test code = 16 mmol/L 23-31 L 6188226765) AGAP (test code = 2-16 2282323165) BUN (test code = 50 mg/dL 7-23 H 7681185704) GLUCOSE (test code = 210 mg/dL 70-110 H 8839874043) CREATININE (test code = 2.17 mg/dL 0.50-1.04 H 2467657961) TOTAL BILI (test code = 0.7 mg/dL 0.1-1.6 1369207003) CALCIUM (test code = 5.7 mg/dL 8.6-10.6 LL 2466511740) T PROTEIN (test code = 5.7 g/dL 6.3-8.2 L 8159146501) ALBUMIN (test code = 1.9 g/dL 3.5-5.0 L 4266078883) ALK PHOS (test code = 315 U/L 34-122 H 2550490263) ALTv (test code = 22 U/L 5-35 1742-6) AST(SGOT) (test code = 38 U/L 13-40 9099071401) eGFR (test code = mL/min/1.73m2 8295225070) FINA (test code = FINA) Association of [...] tests). Lab Interpretation Abnormal (test code = 41408-8) [facility] WITH [id number] 05:21:58 Test Item Value Reference Range Interpretation [...] RDW-SD (test code = 48.4 fL 39.0-49.9 58160-6) RDW-CV (test code = 15.1 % 12.0-15.5 788-0) PLT (test code = See_Comment L [Automated 777-3) message] The sy stem which generated this result transmitted reference range : 166 - 358 10*3/ ?L. The reference r willem was not used to interpret this result as normal/abnormal . MPV (test code = 14.0 fL 9.5-12.9 H 71592-6) IPF % (test code = 13.3 % 1.3-7.7 H Platelet count 4232424496) measured by fluorescence method. NRBC/100 WBC (test See_Comment [Automat ed code = 0295503136) message] The system which generated this result transmitted reference range : 0.0 - 10.0 /100 WBCs. The refer ence range was not u sed to interpret th is result as normal/abnormal . NRBC x10^3 (test code See_Comment [Auto mated = 4748594010) message] The s ystem which generated this result transmitted reference range : 10*3/?L. The reference range was not used to interpret this result as normal/abnormal . GRAN MAT (NEUT) % 61.2 % (test code = 770-8) IMM GRAN % (test code 19.10 % = 9200470815) LYMPH % (test code = 9.4 % 736-9) MONO % (test code = 9.9 % 5905-5) EOS % (test code = 0.3 % 713-8) BASO % (test code = 0.1 % 706-2) GRAN MAT x10^3(ANC) 4.75 10*3/uL 1.88-7.09 (test code = 6393673988) IMM GRAN x10^3 (test 1.48 10*3/uL 0.00-0.06 H code = 2685155854) LYMPH x10^3 (test code 0.73 10*3/uL 1.32-3.29 L = 731-0) MONO x10^3 (test code 0.77 10*3/uL 0.33-0.92 = 742-7) EOS x10^3 (test code = <0.03 0.03-0.39 L 711-2) BASO x10^3 (test code <0.03 0.01-0.07 = 704-7) BANDS (test code = Increased A 5548587973) TOXIC CHANGES (test Present A code = 803-7) Lab Interpretation Abnormal (test code = 96873-4) [facility] - ONCE [id number] 05:06:37 Test Item Value Reference Range Interpretation Comments ABO & RH (test O Positive Performed at [facility] code = 20) Laboratory Serv [facility] Blood [address] [facility] [place] [address]Qjrl Free: [phone] A No. [id number] IAT (test code = Positive Pos AbScree n previously 1185) called to Ki chawla this admit. JCPerfor med at [facility] Laboratory Services - [facility] Blood Ban k[address] [facility] [place], [place] [address]Ycpg Free: [phone] A No. [id number] [facility] GLUCOSE (AUTOMATED)2021-12-14 01:36:17 Test Item Value Reference Range Interpretation Comments POCT GLU (test code = 4423235457) 182 mg/dL 70-110 H Lab Interpretation (test code = Abnormal 27874-6) [facility] [place] [facility] CULTURE [id number] 23:01:25 Test Item Value Reference Range Interpretation Comments Blood Culture-Aerobic No organisms No growth Previo us (test code = 23024-6) isolated prelim inary verified result was Culture [...] Culture-Anaerobic isolated preliminar y (test code = 34259-6) verifi ed result was Culture In Progress [...] CDT Lab Interpretation Normal (test code = 13982-9) [facility] [place] [facility] CULTURE [id number] 23:01:25 Test Item Value Reference Range Interpretation Comments Blood Culture-Aerobic No organisms No growth Previo us (test code = 91613-6) isolated prelim inary verified result was Culture [...] Culture-Anaerobic isolated preliminar y (test code = 37404-9) verifi ed result was Culture In Progress [...] CDT Lab Interpretation Normal (test code = 47335-9) [facility] GLUCOSE (AUTOMATED)2021-12-13 22:01:38 Test Item Value Reference Range Interpretation Comments POCT GLU (test code = 2127184054) 231 mg/dL 70-110 H Lab Interpretation (test code = Abnormal 38805-0) [facility] ROC-[id number] 19:25:08 Test Item Value Reference Range Interpretation Comments NT-proBNP (test code 50240 pg/mL See_Comment H [Autom ated = 7840198681) message] The system which generated this result transmitted reference range : <=125. The reference range was not used to interpret this result as normal/abnormal . FINA (test code = FINA) Biotin has been reported to cause a negative bias, interpret results relative to patient's use of biotin. Lab Interpretation Abnormal (test code = 56371-6) [facility] GLUCOSE (AUTOMATED)2021-12-13 17:23:38 Test Item Value Reference Range Interpretation Comments POCT GLU (test code = 8962672092) 168 mg/dL 70-110 H Lab Interpretation (test code = Abnormal 43808-5) [facility] Hospital[facility] TYPING [id number] 14:23:12 Test Item Value Reference Range Interpretation Comments ANTIGEN ID (test Jka Antigen Pre-Sample drawn code = 5072) Negative 2Perfor med at [facility] Blood [address] [address]Aipq Free: [phone] A No. [id number] [facility]2021-12-13 12:48:49 Test Item Value Reference Range Interpretation Comments POCT GLU (test code = 1636547825) 116 mg/dL 70-110 H Lab Interpretation (test code = Abnormal 02789-3) [facility] WITH [id number] 10:28:40 Test Item Value Reference Range Interpretation [...] RDW-SD (test code = 48.9 fL 39.0-49.9 02547-1) RDW-CV (test code = 15.1 % 12.0-15.5 788-0) PLT (test code = See_Comment L [Automated 777-3) message] The sy stem which generated this result transmitted reference range : 166 - 358 10*3/ ?L. The reference r willem was not used to interpret this result as normal/abnormal . MPV (test code = 13.5 fL 9.5-12.9 H 13602-7) IPF % (test code = 10.4 % 1.3-7.7 H Platelet count 2220503185) measured by fluorescence method. NRBC/100 WBC (test See_Comment [Automat ed code = 6291830259) message] The system which generated this result transmitted reference range : 0.0 - 10.0 /100 WBCs. The refer ence range was not u sed to interpret th is result as normal/abnormal . NRBC x10^3 (test code See_Comment [Auto mated = 4977034907) message] The s ystem which generated this result transmitted reference range : 10*3/?L. The reference range was not used to interpret this result as normal/abnormal . SEG % (test code = 70 % 33-76 52444-6) BAND % (test code = 11 % 0-1 H 40576-8) META % (test code = 6 % See_Comment H [Automa allison 63466-3) message] The sy stem which generated this result transmitted reference range : <=0. The refere nce range was not u sed to interpret th is result as normal/abnormal . MYELO % (test code = 4 % See_Comment H [Autom ated 92811-2) message] The sy stem which generated this result transmitted reference range : <=0. The refere nce range was not u sed to interpret th is result as normal/abnormal . PROMYELO % (test code 2 % See_Comment H [Auto mated = 95549-2) message] The sy stem which generated this result transmitted reference range : <=0. The refere nce range was not u sed to interpret th is result as normal/abnormal . LYMPH % (test code = 2 % 14-54 L 45964-0) MONO % (test code = 3 % 0-4 28752-7) EOS % (test code = 2 % 0-3 67232-7) ANC (test code = 6.16 10*3/uL 1.88-7.09 753-4) Lab Interpretation Abnormal (test code = 73034-3) [facility] METABOLIC PANEL (NA, K, CL, CO2, GLUCOSE, BUN, CREATININE, CA)2021-12-13 09:46:38 Test Item Value Reference Range Interpretation Comments NA (test code = 132 mmol/L 135-145 L 2115274430) K (test code = 3.7 mmol/L 3.5-5.0 3904692887) CL (test code = 110 mmol/L 98-108 H 3080863742) CO2 TOTAL (test code = 15 mmol/L 23-31 L 9863336047) AGAP (test code = 2-16 3920632488) BUN (test code = 51 mg/dL 7-23 H 4430270685) GLUCOSE (test code = 104 mg/dL 70-110 7825851277) CREATININE (test code = 2.48 mg/dL 0.50-1.04 H 9540487837) CALCIUM (test code = 6.0 mg/dL 8.6-10.6 L 6034591704) eGFR (test code = mL/min/1.73m2 6864210894) FINA (test code = FINA) Association of [...] tests). Lab Interpretation Abnormal (test code = 62318-6) [facility] GLUCOSE (AUTOMATED)2021-12-13 01:38:50 Test Item Value Reference Range Interpretation Comments POCT GLU (test code = 7750114897) 97 mg/dL 70-110 Lab Interpretation (test code = Normal 28485-1) [facility] [id number] 23:53:29 Test Item Value Reference Range Interpretation Comments VANCO RANDOM (test code = 16.5 ug/mL 7784358341) [facility] GLUCOSE (AUTOMATED)2021-12-12 21:59:51 Test Item Value Reference Range Interpretation Comments POCT GLU (test code = 3673040472) 144 mg/dL 70-110 H Lab Interpretation (test code = Abnormal 13864-0) [facility] GLUCOSE (AUTOMATED)2021-12-12 16:47:00 Test Item Value Reference Range Interpretation Comments POCT GLU (test code = 8830661026) 180 mg/dL 70-110 H Lab Interpretation (test code = Abnormal 73990-4) [facility]. Sendout- (1,3)-Iutt-Q-Wftnvp (Fungitell) 2021-12-12 16:35:51 Test Item Value Reference Range Interpretation Comments Miscellaneous Test (test See scanned report code = 8517353783) Performing Lab (test code ARUP = 3910812868) [facility] HospitalION[facility]ED [id number] 15:58:58 Test Item Value Reference Range Interpretation Comments IONIZED CA (test code = 3.40 mg/dL 4.50-5.30 L 8499736904) PH SERUM (test code = 4989455838) 7.35-7.45 Lab Interpretation (test code = Abnormal 35007-2) [facility] GLUCOSE (AUTOMATED)2021-12-12 12:19:37 Test Item Value Reference Range Interpretation Comments POCT GLU (test code = 9056670719) 180 mg/dL 70-110 H Lab Interpretation (test code = Abnormal 74834-6) [facility] HospitalCB WITH [id number] 11:15:19 Test Item Value Reference Range Interpretation [...] RDW-SD (test code = 47.0 fL 39.0-49.9 77044-6) RDW-CV (test code = 14.8 % 12.0-15.5 788-0) PLT (test code = See_Comment L [Automated 777-3) message] The sy stem which generated this result transmitted reference range : 166 - 358 10*3/ ?L. The reference r willem was not used to interpret this result as normal/abnormal . MPV (test code = 13.0 fL 9.5-12.9 H 35758-0) IPF % (test code = 11.3 % 1.3-7.7 H Platelet count 0010277574) measured by fluorescence method. NRBC/100 WBC (test See_Comment [Automat ed code = 4502568346) message] The system which generated this result transmitted reference range : 0.0 - 10.0 /100 WBCs. The refer ence range was not u sed to interpret th is result as normal/abnormal . NRBC x10^3 (test code See_Comment [Auto mated = 9842834583) message] The s ystem which generated this result transmitted reference range : 10*3/?L. The reference range was not used to interpret this result as normal/abnormal . SEG % (test code = 44 % 33-76 31102-2) BAND % (test code = 32 % 0-1 H 46966-7) META % (test code = 5 % See_Comment H [Automa allison 91377-2) message] The sy stem which generated this result transmitted reference range : <=0. The refere nce range was not u sed to interpret th is result as normal/abnormal . MYELO % (test code = 4 % See_Comment H [Autom ated 06481-4) message] The sy stem which generated this result transmitted reference range : <=0. The refere nce range was not u sed to interpret th is result as normal/abnormal . PROMYELO % (test code 2 % See_Comment H [Auto mated = 92404-8) message] The sy stem which generated this result transmitted reference range : <=0. The refere nce range was not u sed to interpret th is result as normal/abnormal . LYMPH % (test code = 6 % 14-54 L 84725-0) MONO % (test code = 6 % 0-4 H 27950-3) EOS % (test code = 1 % 0-3 84243-3) ANC (test code = 5.73 10*3/uL 1.88-7.09 753-4) Lab Interpretation Abnormal (test code = 68219-0) [facility] METABOLIC PANEL (NA, K, CL, CO2, GLUCOSE, BUN, CREATININE, CA)2021-12-12 10:17:58 Test Item Value Reference Range Interpretation Comments NA (test code = 130 mmol/L 135-145 L 4074687168) K (test code = 3.6 mmol/L 3.5-5.0 7200710649) CL (test code = 109 mmol/L 98-108 H 8319526547) CO2 TOTAL (test code = 15 mmol/L 23-31 L 3923839872) AGAP (test code = 2-16 1310362579) BUN (test code = 52 mg/dL 7-23 H 3661489431) GLUCOSE (test code = 173 mg/dL 70-110 H 4410313305) CREATININE (test code = 2.58 mg/dL 0.50-1.04 H 6389639117) CALCIUM (test code = 5.3 mg/dL 8.6-10.6 LL 5656326670) eGFR (test code = mL/min/1.73m2 1179878581) FINA (test code = FINA) Association of [...] tests). Lab Interpretation Abnormal (test code = 53920-0) [facility]2022-07-03 10:08:53 Test Item Value Reference Range Interpretation Comments MAGNESIUM (test code = 2520917627) 2.2 mg/dL 1.7-2.4 Lab Interpretation (test code = Normal 10221-1) [facility]PHOSPHORUS2022-07-03 10:08:53 Test Item Value Reference Range Interpretation Comments PHOSPHORUS (test code = 4451073237) 2.6 mg/dL 2.5-5.0 Lab Interpretation (test code = Normal 76711-8) [facility]PO[facility])2021-12-12 02:17:16 Test Item Value Reference Range Interpretation Comments POCT GLU (test code = 2365762591) 115 mg/dL 70-110 H Lab Interpretation (test code = Abnormal 64597-6) [facility] WITHOUT [id number] 00:08:55 Test Item Value Reference Range Interpretation Comments WBC (test code = See_Comment [Automated message] 6690-2) The system [employer] generated this result transmitted ref erence range: 4.30 - 1 1.10 10*3/?L. The reference range was not used to int erpret this result as normal/abnormal . RBC (test code = 789-8) See_Comment L [Au tomated message] The system [employer] generated this result transmitted ref erence range: [...] See_Comment L [Au tomated message] The system [employer] generated this result transmitted ref erence range: 166 - 35 8 10*3/?L. The reference range was not used to int erpret this result as normal/abnormal . MPV (test code = 12.9 fL 9.5-12.9 77988-2) RDW-CV (test code = 14.6 % 12.0-15.5 788-0) RDW-SD (test code = 47.0 fL 39.0-49.9 79372-3) NRBC x10^3 (test code = See_Comment [Au tomated message] 1833210337) The system [employer] generated this result transmitted ref erence range: 10*3/?L. The reference range was not used to int erpret this result as normal/abnormal . NRBC/100 WBC (test code See_Comment [Au tomated message] = 5307846595) The system [employer] generated this result transmitted ref erence range: 0.0 - 10 .0 /100 WBCs. The reference range was not used to int erpret this result as normal/abnormal . IPF % (test code = 12.2 % 1.3-7.7 H Platelet count 1214972889) measured by fluorescence me thod. Lab Interpretation Abnormal (test code = 85424-6) [facility] HospitalVancomycin Random Dnscr0595-95-07 00:07:15 Test Item Value Reference Range Interpretation Comments VANCO RANDOM (test code = 21.2 ug/mL 0758650743) [facility] GLUCOSE (AUTOMATED)2021-12-11 21:57:08 Test Item Value Reference Range Interpretation Comments POCT GLU (test code = 6196983258) 132 mg/dL 70-110 H Lab Interpretation (test code = Abnormal 61654-1) [facility] HospitalPrepare Packed RBC (in units)2021-12-11 17:50:14 Test Item Value Reference Range Interpretation Comments Unit Blood Type (test O Pos code = 4410) ISBT Blood Type Code (test code = 181717) Unit Number (test [id number] code = 4411) Blood Expiration Date & Time (test code = 236870) Status Information Issued (test code = 4412) Product Red Blood Cells Identification (test code = 4413) Product Code (test [id number] Performed at [facility] code = 4414) Laboratory Services - [facility] Blood [address] [place] [address]Urvp Free: [phone] A No. [id number] Cross Match Result Compatible (test code = 4409) [facility] GLUCOSE (AUTOMATED)2021-12-11 16:30:47 Test Item Value Reference Range Interpretation Comments POCT GLU (test code = 9280655069) 127 mg/dL 70-110 H Lab Interpretation (test code = Abnormal 38586-6) [facility] WITH [id number] 10:39:55 Test Item Value Reference Range Interpretation [...] RDW-SD (test code = 45.8 fL 39.0-49.9 81011-8) RDW-CV (test code = 14.3 % 12.0-15.5 788-0) PLT (test code = See_Comment L [Automated 777-3) message] The sy stem which generated this result transmitted reference range : 166 - 358 10*3/ ?L. The reference r willem was not used to interpret this result as normal/abnormal . MPV (test code = 13.5 fL 9.5-12.9 H 42155-7) IPF % (test code = 14.6 % 1.3-7.7 H Platelet count 6746293187) measured by fluorescence method. NRBC/100 WBC (test See_Comment [Automat ed code = 6902433784) message] The system which generated this result transmitted reference range : 0.0 - 10.0 /100 WBCs. The refer ence range was not u sed to interpret th is result as normal/abnormal . NRBC x10^3 (test code See_Comment [Auto mated = 5867848168) message] The s ystem which generated this result transmitted reference range : 10*3/?L. The reference range was not used to interpret this result as normal/abnormal . SEG % (test code = 61 % 33-76 97146-4) BAND % (test code = 22 % 0-1 H 67282-1) META % (test code = 5 % See_Comment H [Automa allison 55163-9) message] The sy stem which generated this result transmitted reference range : <=0. The refere nce range was not u sed to interpret th is result as normal/abnormal . MYELO % (test code = 3 % See_Comment H [Autom ated 28166-7) message] The sy stem which generated this result transmitted reference range : <=0. The refere nce range was not u sed to interpret th is result as normal/abnormal . PROMYELO % (test code 1 % See_Comment H [Auto mated = 92272-2) message] The sy stem which generated this result transmitted reference range : <=0. The refere nce range was not u sed to interpret th is result as normal/abnormal . LYMPH % (test code = 4 % 14-54 L 30350-8) MONO % (test code = 4 % 0-4 81528-1) ANC (test code = 7.46 10*3/uL 1.88-7.09 H 753-4) DOHLE BODIES (test Present A code = 7792-5) TOXIC CHANGES (test Present A code = 803-7) Lab Interpretation Abnormal (test code = 57236-7) [facility] (NA, K, CL, CO2, GLUCOSE, BUN, CREATININE, CA)2021-12-11 10:04:43 Test Item Value Reference Range Interpretation Comments NA (test code = 132 mmol/L 135-145 L 5008963303) K (test code = 3.8 mmol/L 3.5-5.0 7735986089) CL (test code = 109 mmol/L 98-108 H 0434051447) CO2 TOTAL (test code = 16 mmol/L 23-31 L 0246846264) AGAP (test code = 2-16 7245929017) BUN (test code = 53 mg/dL 7-23 H 0344269276) GLUCOSE (test code = 103 mg/dL 70-110 4702842451) CREATININE (test code = 2.63 mg/dL 0.50-1.04 H 4572558675) CALCIUM (test code = 5.7 mg/dL 8.6-10.6 LL 5692607998) eGFR (test code = mL/min/1.73m2 5414794794) FINA (test code = FINA) Association of [...] tests). Lab Interpretation Abnormal (test code = 58526-2) [facility]2022-07-02 09:57:48 Test Item Value Reference Range Interpretation Comments MAGNESIUM (test code = 7616845299) 2.3 mg/dL 1.7-2.4 Lab Interpretation (test code = Normal 69651-8) [facility] HospitalTransfusion Reaction Ujvdiwwpwmlci5372-80-11 09:35:28 Test Item Value Reference Range Interpretation Comments POST IAT (test Positive Performed at [facility] code = 2111) Laboratory Serv [facility] Blood Bank[address] [place] [address]Liii Free: [phone] A No. [id number] PRE IAT (test Negative Performed at U [facility]MB code = 2112) Laboratory [facility] Blood [facility]3 [address] [facility] [address]Vkqz Free: [phone] A No. [id number] PRE ABO & RH O Positive Performed at [facility] (test code = Laboratory [facility] 1633) [facility] Blood [facility] [address] [facility] [address]Mgzf Free: [phone] A No. [id number] PRE XM INT (test Incompatible [id number] 13 code = 1632) R0325Doymbjfch at [facility] Laboratory [facility] Blood [facility]3 [address] [facility] [address]Uuui Free: [phone] A No. [id number] POST IGG (test Weak Positive Performed at [facility] code = 1618) Laboratory [facility] Blood [facility]3 [address] [facility] [address]Swry Free: [phone] A No. [id number] POST C3 (test Negative Performed at TMB code = 1617) Laboratory [facility] Blood [facility] [address] [facility] [address]Bmmn Free: [phone] A No. [id number] POST XM INT (test Incompatible [id number] 913 code = 1596) U2519Hllbzddne at [facility] Laboratory [facility] Blood [facility]3 [address] [facility] [address]Wunl Free: [phone] A No. [id number] [facility] HospitalTRXN HHGNUU-RBHRAISLANY1118-63-02 09:26:48 Test Item Value Reference Range Interpretation Comments CLERICAL CK AcceptableSee Units transfus ed and (test code = Comment unavailable.Per forme 542) d at [facility] Blood [address] [place], [place] [address]Khwy Free: [phone] A No. [id number] PRE SERUM (test No Hemolysis NotedNo Perf ormed at [facility] code = 1637) I[facility]erus Noted Laboratory Ser [facility] Blood [address] [address]Wdbd Free: [phone] A No. [id number] PRE ZACHARY (test Negative Performed at [facility] code = 1636) Laboratory Serv ices - [address] [address]Bfsx Free: [phone] A No. [id number] POST ABO & RH O Positive Performed at [facility] (test code = Laboratory Serv ice 1616) [facility] Blood [address] [address]Gjkp Free: [phone] A No. [id number] POST ZACHARY (test Weak Positive Performed at [facility] code = 1619) Laboratory Serv [address] [address]Hjfb Free: [phone] A No. [id number] POST SERUM No Hemolysis NotedNo Perform ed at [facility] (test code = Icterus Noted Laboratory Ser vice 1620) [address] [address]Zmbu Free: [phone] A No. [id number] PRELIM RESULT Positive TxRxn Positive: Ex tended (test code = investigation i n 3962) process; Blood Bank physician interpretation to follow.Performe d at [facility] Laboratory Services - [place] [address]Toll Free: [phone] A No. [id number] PRODUCT (test RBC- See comment [id number] 077 E0332, code = 2110) [id number] E 0332, [id number] G4782Ikuoljojj at [facility] Laboratory Services - [place] [address]Toll Free: [phone] A No. [id number] [facility] HospitalPANEL KLGKWQAATOTOFV1106-86-25 07:40:49 ANTIBODY IDAnti-JkaUndetermined Spec Comment: Performed at [facility] Laboratory Services [address], [place] [address]Qdit Free: [phone] No. [id number] LABUnMemorial Hermann Northeast HospitalELUTION [id number] 07:40:47 Test Item Value Reference Range Interpretation Comments ELUTION ID (test code Negative Eluate nonreactive with = 5160) all cells tested.Performe d at [facility] Laboratory [facility] Blood [facility]3 01 [facility] s [address]Ywfr Free: [phone] A No. [id number] [facility] GLUCOSE (AUTOMATED)2021-12-11 01:44:40 Test Item Value Reference Range Interpretation Comments POCT GLU (test code = 6546256834) 165 mg/dL 70-110 H Lab Interpretation (test code = Abnormal 20399-6) [facility] GLUCOSE (AUTOMATED)2021-12-10 23:49:31 Test Item Value Reference Range Interpretation Comments POCT GLU (test code = 1407023643) 221 mg/dL 70-110 H Lab Interpretation (test code = Abnormal 39517-0) [facility] HospitalType and Screen - ONCE Keueggo4747-09-82 22:55:36 Test Item Value Reference Range Interpretation Comments ABO & RH (test code O Positive Performe d at [facility] = 20) Laboratory [facility] Blood Bank[address] [place] [address]Zckp Free: [phone] A No. [id number] IAT (test code = Positive Performed a t [facility] 1185) Laboratory [facility] Blood [address] [address]Knqx Free: [phone] A No. [id number] [facility] HospitalTHYROID STIMULATING [id number] 21:54:55 Test Item Value Reference Range Interpretation Comments TSH (test code = See_Comment [Automated message] 5895184077) The system [employer] generated this result transmitted ref erence range: 0.45 - 4 .70 mIU/L. The refe rence range was not u sed to interpret this result as normal/abnor mal. Lab Interpretation (test Normal code = 68819-5) [facility] WITH [id number] 21:31:03 Test Item Value Reference Range Interpretation [...] RDW-SD (test code = 45.0 fL 39.0-49.9 05772-6) RDW-CV (test code = 14.4 % 12.0-15.5 788-0) PLT (test code = See_Comment L [Automated 777-3) message] The system which generated this result transmit allison reference range : 166 - 358 10*3/ ?L. The reference range was not u sed to interpret th is result as normal/abnormal . MPV (test code = 14.5 fL 9.5-12.9 H 37723-3) IPF % (test code = 14.1 % 1.3-7.7 H Platelet count 4561100489) measured by fluorescence method. NRBC/100 WBC (test See_Comment [Automat ed code = 2306293322) message] The system which generated this result transmit allison reference range : 0.0 - 10.0 /100 WBCs. The reference range was not used to interpret this result as normal/abnormal . NRBC x10^3 (test code See_Comment [Auto mated = 7433029106) message] The system which generated this result transmit allison reference range : 10*3/?L. The reference range was not used to interpret this result as normal/abnormal . SEG % (test code = 50 % 33-76 34692-2) BAND % (test code = 26 % 0-1 H 11583-2) META % (test code = 4 % See_Comment H [Automa allison 29184-0) message] The system which generated this result transmit allison reference range : <=0. The refere nce range was not u sed to interpret th is result as normal/abnormal . MYELO % (test code = 4 % See_Comment H [Autom ated 15225-2) message] The system which generated this result transmit allison reference range : <=0. The refere nce range was not u sed to interpret th is result as normal/abnormal . PROMYELO % (test code 2 % See_Comment H [Auto mated = 78666-0) message] The system which generated this result transmit allison reference range : <=0. The refere nce range was not u sed to interpret th is result as normal/abnormal . LYMPH % (test code = 10 % 14-54 L 08372-4) MONO % (test code = 4 % 0-4 67443-8) EOS % (test code = 2 % 0-3 86622-3) ANC (test code = 3.86 10*3/uL 1.88-7.09 753-4) DOHLE BODIES (test Present A code = 7792-5) TOXIC CHANGES (test Present A code = 803-7) FINA (test code = FINA) Reviewed by Leonardo Costello M.D., Director of HEMATOPATHOLOGY . Lab Interpretation Abnormal (test code = 89743-9) [facility] HospitalVancomycin Random Wxbql1964-26-89 21:27:29 Test Item Value Reference Range Interpretation Comments VANCO RANDOM (test code = 14.9 ug/mL 6647013765) [facility])2021-12-10 19:33:49 Test Item Value Reference Range Interpretation Comments POCT GLU (test code = 4865836549) 204 mg/dL 70-110 H Lab Interpretation (test code = Abnormal 45267-5) [facility] HospitalBLOOD CULTURE [id number] 19:01:23 Test Item Value Reference Range Interpretation Comments Blood Culture-Aerobic No organisms No growth Previo us (test code = 50815-8) isolated prelim inary verified result was Culture [...] Culture-Anaerobic isolated preliminar y (test code = 56987-6) verifi ed result was Culture In Progress on 12/05/2021 at 17 CDTPrevious preliminary verified result was No growth a t 24 hours on 12/06/2021 at 14 CDTPrevious preliminary verified result was No growth a t 48 hours on 12/07/2021 at 14 CDTPrevious preliminary verified result was No growth a t 72 hours on 12/08/2021 at 14 01 CDT Lab Interpretation Normal (test code = 53552-8) [facility] HospitalBL[facility] CULTURE [id number] 19:01:23 Test Item Value Reference Range Interpretation Comments Blood Culture-Aerobic No organisms No growth Previo us (test code = 22314-2) isolated prelim inary verified result was Culture In Progress on 12/05/2021 at 17 01 CDTPrevious preliminary verified result was No growth a t 24 hours on 12/06/2021 at 14 CDTPrevious preliminary verified result was No growth a t 48 hours on 12/07/2021 at 14 CDTPrevious preliminary verified result was No growth a t 72 hours on 12/08/2021 at 14 01 CDT Blood No organisms No growth Previous Culture-Anaerobic isolated preliminar y (test code = 13343-7) verifi ed result was Culture In Progress [...] CDT Lab Interpretation Normal (test code = 47529-3) [facility] HospitalHLA-ABC-DR TYPING [id number] 19:01:00 Test Item Value Reference Range Interpretation [...] additional antigen not yet identified. Performed at [facility] Pathology Clinical Services Laboratories - Tissue AntigenDIRECTOR: ?MISA MARY MD, [address] [place] [address] ?[address]Eijvp: [phone] No. [id number] ANALYTE SPECIFIC REAGENT STATEMENT: ?This test was developed and its performance characteristics determined by the [facility] Tissue Antigen Laboratory. ?The test has not been cleared or approved by the [place] [employer] (USFDA). ?The USFDA does not require licensing of reagents used in these tests. VERIFIED BY: ?Osmany Pinedo (electronic signature) 12/10/2021 REPORT DTE (test 12/10/2021 code = 3094) TECH (test code = SM/CA 3095) [facility] HospitalANTIBODY SCREEN [id number] 18:59:00 Test Item Value Reference Range Interpretation [...] Luminex 3209) COMMENTS (test code Performed at [facility] = 3210) Pathology Clinical Services Laboratories - Tissue AntigenDIRECTOR: ?MISA MARY MD, PFQ[address] [place] [address] ?[address]Zhebh: [phone] No. [id number] ANALYTE SPECIFIC REAGENT STATEMENT: ?This test was developed and its performance characteristics determined by the [facility] Tissue Antigen Laboratory. ?The test has not been cleared or approved by the [place] [employer] and [employer] (USFDA). ?The USFDA does not require licensing of reagents used in these tests. VERIFIED BY: ?Osmany Pinedo (electronic signature) 12/10/2021 REPORT DTE (test 12/10/2021 code = 3211) TECH (test code = RR 3212) [facility] HospitalTransthoracic echo (TTE)2021-12-10 18:42:37 Test Item Value Reference Range Interpretation Comments Height (test code = in 5614038365) Weight (test code = lbs 9204563812) Systolic BP (test code = mmHg 4696189774) Diastolic BP (test code = mmHg 8599551820) Heart Rate (test code = bpm 5146324896) LVOT stroke volume (test 63.10 cm3 code = 5108267815) EF(Teich) (test code = 76.50 % 9780805621) LVIDD (test code = 4.60 cm 9292748861) LVIDS (test code = 2.50 cm 6441519730) IVS (test code = 0.86 cm 0962959077) LVPWD (test code = 0.86 cm 5089145266) LVOT diameter (test code = 2.01 cm 0409685099) FS (test code = 45 % 0804899013) MV Peak E Cathryn (test code = 126.4 cm/s 9623253446) MV Peak A Cathryn (test code = 105.6 cm/s 0643694592) E/A ratio (test code = ratio 4984861750) E wave decelartion time 0.24 s (test code = 2498601057) MV E/e' septal (test code 7.1 cm/s = 9966967574) LA Volume Index (BP) (test 40.5 mL/m2 code = 2115918520) LA volume (BP) (test code 81.8 mL = 8752187003) LVOT peak cathryn (test code = 106.1 cm/s 9158516230) LVOT mn grad (test code = mmHg 1083156203) BSA (test code = 2.02 m2 4867134069) LA size (test code = 4.2 cm 1679521594) LAV(MOD-sp2) (test code = 76.30 mL 1658275920) LAV(MOD-sp4) (test code = 77.30 mL 5465926459) Tapse (test code = 2.31 cm 6782975725) Aortic valve mean velocity 167.9 cm/s (test code = 3802695603) Ao peak cathryn (test code = 255.3 cm/s 7477375606) Ao VTI (test code = 44.3 cm 0172105217) AV LVOT peak gradient mmHg (test code = 0920264472) LVOT peak VTI (test code = 19.9 cm 1691653232) AV area by cont VTI (test 1.4 cm2 code = 3684668468) AV area peak cathryn (test 1.3 cm2 code = 6030155011) LV V1 mean (test code = 70.80 cm/s 2606287845) Ao max PG (test code = 26.10 mm[Hg] 0911692535) MV Prop V (test code = 59.80 cm/s 6458086514) Ao root annulus (test code 3.3 cm = 9443943108) Ao root diam (test code = 3.30 cm 5234388521) AV peak gradient (test mmHg code = 4872239991) AV valve area (test code = 1.42 cm2 5588743864) AV mean gradient (test mmHg code = 6539417518) Aortic root (test code = 3.3 cm 7979786815) PW (test code = 0.86 cm 0.6-1.2 6456476547) EF - 2D (test code = 76.50 % 68941181) Interventricular Septum 0.86 cm Diastolic Thickness by 2D (test code = 1251349) Radiology Study observation (narrative) (test code = 84003-9) FINA (test code = FINA) ?Left?Ventricle: No regional wall motion abnormalities. Normal systolic function with a visually estimated EF of 65 - 70%. There is impaired relaxation. ?Right?Ventricle: Right ventricle is normal in size and function. ?Left?Atrium: Left atrium is moderately dilated. [facility] GLUCOSE (AUTOMATED)2021-12-10 16:49:01 Test Item Value Reference Range Interpretation Comments POCT GLU (test code = 1968617334) 173 mg/dL 70-110 H Lab Interpretation (test code = Abnormal 53507-9) [facility] GLUCOSE (AUTOMATED)2021-12-10 14:20:52 Test Item Value Reference Range Interpretation Comments POCT GLU (test code = 7002141725) 147 mg/dL 70-110 H Lab Interpretation (test code = Abnormal 89975-7) [facility] GLUCOSE (AUTOMATED)2021-12-10 12:57:11 Test Item Value Reference Range Interpretation Comments POCT GLU (test code = 2126222897) 123 mg/dL 70-110 H Lab Interpretation (test code = Abnormal 49772-4) [facility] WITH [id number] 10:54:10 Test Item Value Reference Range Interpretation [...] RDW-SD (test code = 45.3 fL 39.0-49.9 54981-0) RDW-CV (test code = 14.1 % 12.0-15.5 788-0) PLT (test code = See_Comment L [Automated 777-3) message] The sy stem which generated this result transmitted reference range : 166 - 358 10*3/ ?L. The reference r willem was not used to interpret this result as normal/abnormal . MPV (test code = Not Measure d 89773-4) IPF % (test code = 18.6 % 1.3-7.7 H Platelet count 2728481665) measured by fluorescence method. NRBC/100 WBC (test See_Comment [Automat ed code = 0311411748) message] The system which generated this result transmitted reference range : 0.0 - 10.0 /100 WBCs. The refer ence range was not u sed to interpret th is result as normal/abnormal . NRBC x10^3 (test code See_Comment [Auto mated = 8471515422) message] The s ystem which generated this result transmitted reference range : 10*3/?L. The reference range was not used to interpret this result as normal/abnormal . SEG % (test code = 30 % 33-76 L 33195-4) BAND % (test code = 47 % 0-1 H 69912-4) META % (test code = 4 % See_Comment H [Automa allison 16784-2) message] The sy stem which generated this result transmitted reference range : <=0. The refere nce range was not u sed to interpret th is result as normal/abnormal . MYELO % (test code = 4 % See_Comment H [Autom ated 24217-1) message] The sy stem which generated this result transmitted reference range : <=0. The refere nce range was not u sed to interpret th is result as normal/abnormal . LYMPH % (test code = 7 % 14-54 L 14573-6) REACT LYMPH % (test 2 % code = 9523298989) MONO % (test code = 4 % 0-4 46381-9) EOS % (test code = 2 % 0-3 05233-0) ANC (test code = 3.34 10*3/uL 1.88-7.09 753-4) DOHLE BODIES (test Present A code = 7792-5) TOXIC CHANGES (test Present A code = 803-7) Lab Interpretation Abnormal (test code = 55779-1) [facility] (ALB,T.PRO,BILI T,BU/BC,ALT,AST,ALK PHOS)2021-12-10 10:18:06 Test Item Value Reference Range Interpretation Comments TOTAL BILI (test code = 5908642398) 0.5 mg/dL 0.1-1.1 BILI UNCON (test code = 8370968981) 0.2 mg/dL 0.1-1.1 BILI CONJ (test code = 5022714606) 0.0 mg/dL 0.0-0.3 T PROTEIN (test code = 5439678207) 5.2 g/dL 6.3-8.2 L ALBUMIN (test code = 9690195077) 2.1 g/dL 3.5-5.0 L ALK PHOS (test code = 8389375657) 114 U/L 34-122 ALTv (test code = 1742-6) 22 U/L 5-35 AST(SGOT) (test code = 2681470431) 56 U/L 13-40 H Lab Interpretation (test code = Abnormal 14391-1) [facility] (NA, K, CL, CO2, GLUCOSE, BUN, CREATININE, CA)2021-12-10 10:17:46 Test Item Value Reference Range Interpretation Comments NA (test code = 132 mmol/L 135-145 L 2064558615) K (test code = 4.2 mmol/L 3.5-5.0 7267906816) CL (test code = 106 mmol/L 98-108 5958334623) CO2 TOTAL (test code = 19 mmol/L 23-31 L 1259884678) AGAP (test code = 2-16 4910096160) BUN (test code = 48 mg/dL 7-23 H 6980583983) GLUCOSE (test code = 102 mg/dL 70-110 4133206440) CREATININE (test code = 2.53 mg/dL 0.50-1.04 H 5701498721) CALCIUM (test code = 6.2 mg/dL 8.6-10.6 L 8906884419) eGFR (test code = mL/min/1.73m2 5228672251) FINA (test code = FINA) Association of [...] tests). Lab Interpretation Abnormal (test code = 50899-1) [facility] 10:17:46 Test Item Value Reference Range Interpretation Comments MAGNESIUM (test code = 2145954920) 2.2 mg/dL 1.7-2.4 Lab Interpretation (test code = Normal 38768-3) [facility] [id number] 10:08:44 Test Item Value Reference Range Interpretation Comments IONIZED CA (test code = 3.90 mg/dL 4.50-5.30 L 5447099551) PH SERUM (test code = 5232101652) 7.35-7.45 L Lab Interpretation (test code = Abnormal 06651-3) [facility] Whole [id number] 09:34:40 Test Item Value Reference Range Interpretation Comments LACTIC ACID (test code = 2.00 mmol/L 0.50-2.20 8670904265) Lab Interpretation (test code = Normal 06679-9) [facility] GLUCOSE (AUTOMATED)2021-12-10 06:46:49 Test Item Value Reference Range Interpretation Comments POCT GLU (test code = 3485239404) 89 mg/dL 70-110 Lab Interpretation (test code = Normal 76514-3) [facility] GLUCOSE (AUTOMATED)2021-12-10 04:17:39 Test Item Value Reference Range Interpretation Comments POCT GLU (test code = 5511016629) 73 mg/dL 70-110 Lab Interpretation (test code = Normal 04858-6) [facility] GLUCOSE (AUTOMATED)2021-12-10 02:04:59 Test Item Value Reference Range Interpretation Comments POCT GLU (test code = 2310768351) 92 mg/dL 70-110 Lab Interpretation (test code = Normal 36882-9) [facility] + Lactic [id number] 23:44:18 Test Item Value Reference Range Interpretation Comments PH (test code = 2) 7.35-7.45 PCO2 (test code = See_Comment L [Automate d 9237964648) message] The sy stem which generated this result transmitted reference range : 35 - 45 mmHg. The reference range was not used to interpret this result as normal/abnormal . PO2 (test code = See_Comment L [Automated 9445311769) message] The sy stem which generated this result transmitted reference range : 80 - 100 mmHg. The reference range was not used to interpret this result as normal/abnormal . HCO3 (test code = See_Comment L [Automate d 7243214656) message] The sy stem which generated this result transmitted reference range : 22 - 26 mEq/L. The reference range was not used to interpret this result as normal/abnormal . BE (test code = See_Comment L [Automated 7733795028) message] The sy stem which generated this result transmitted reference range : -3.0 - 3.0 mEq/ L. The reference r willem was not used to interpret this result as normal/abnormal . THB (test code = 8.5 g/dL 12.0-16.0 L 0003629131) %O2HB (test code = 91.2 % 94.0-99.0 L 2480365543) %COHB ART (test code = 0.0 % 0.0-1.5 4164857998) %METHB ART (test code = 0.4 % 0.4-1.5 5146519047) VOL%O2 ART (test code = 11.0 % 15.0-23.0 L 6640970190) NA (test code = 131 mmol/L 135-145 L 4562298023) K+ (test code = 4.0 mmol/L 3.5-5.0 8780345101) AC CA IONZ (test code = 3.80 mg/dL 4.50-5.30 L 9146693154) GLUCOSE (test code = 128 mg/dL 70-110 H 2080894187) LACTIC ACID (test code 2.20 mmol/L 0.50-2.20 = 1422878875) Lab Interpretation Abnormal (test code = 81582-9) [facility] GLUCOSE (AUTOMATED)2021-12-09 23:39:26 Test Item Value Reference Range Interpretation Comments POCT GLU (test code = 4832278117) 141 mg/dL 70-110 H Lab Interpretation (test code = Abnormal 70927-5) [facility] GLUCOSE (AUTOMATED)2021-12-09 21:17:09 Test Item Value Reference Range Interpretation Comments POCT GLU (test code = 4131408487) 160 mg/dL 70-110 H Lab Interpretation (test code = Abnormal 64331-9) [facility] GLUCOSE (AUTOMATED)2021-12-09 19:01:44 Test Item Value Reference Range Interpretation Comments POCT GLU (test code = 9192505786) 169 mg/dL 70-110 H Lab Interpretation (test code = Abnormal 32256-8) [facility] GLUCOSE (AUTOMATED)2021-12-09 16:53:55 Test Item Value Reference Range Interpretation Comments POCT GLU (test code = 1887995571) 171 mg/dL 70-110 H Lab Interpretation (test code = Abnormal 77034-2) [facility] GLUCOSE (AUTOMATED)2021-12-09 13:21:51 Test Item Value Reference Range Interpretation Comments POCT GLU (test code = 7446954498) 178 mg/dL 70-110 H Lab Interpretation (test code = Abnormal 53443-4) [facility] GLUCOSE (AUTOMATED)2021-12-09 10:42:59 Test Item Value Reference Range Interpretation Comments POCT GLU (test code = 1419777398) 177 mg/dL 70-110 H Lab Interpretation (test code = Abnormal 37331-2) [facility] WITH [id number] 10:41:39 Test Item Value Reference Range Interpretation [...] RDW-SD (test code = 44.7 fL 39.0-49.9 47240-8) RDW-CV (test code = 13.7 % 12.0-15.5 788-0) PLT (test code = See_Comment LL [Automated 777-3) message] The sy stem which generated this result transmitted reference range : 166 - 358 10*3/ ?L. The reference r willem was not used to interpret this result as normal/abnormal . MPV (test code = Not Measure d 78727-0) IPF % (test code = 23.6 % 1.3-7.7 H Platelet count 7256339234) measured by fluorescence method. NRBC/100 WBC (test See_Comment [Automat ed code = 3430761437) message] The system which generated this result transmitted reference range : 0.0 - 10.0 /100 WBCs. The refer ence range was not u sed to interpret th is result as normal/abnormal . NRBC x10^3 (test code See_Comment [Auto mated = 4199088962) message] The s ystem which generated this result transmitted reference range : 10*3/?L. The reference range was not used to interpret this result as normal/abnormal . SEG % (test code = 16 % 33-76 L 80419-4) BAND % (test code = 14 % 0-1 H 59937-5) META % (test code = 2 % See_Comment H [Automa allison 97997-6) message] The sy stem which generated this result transmitted reference range : <=0. The refere nce range was not u sed to interpret th is result as normal/abnormal . MYELO % (test code = 2 % See_Comment H [Autom ated 17388-9) message] The sy stem which generated this result transmitted reference range : <=0. The refere nce range was not u sed to interpret th is result as normal/abnormal . LYMPH % (test code = 47 % 14-54 73722-2) MONO % (test code = 12 % 0-4 H 37207-9) EOS % (test code = 6 % 0-3 H 16080-4) ANC (test code = 0.38 10*3/uL 1.88-7.09 L 753-4) TOXIC CHANGES (test Present A code = 803-7) Lab Interpretation Abnormal (test code = 34660-0) [facility] METABOLIC PANEL (NA, K, CL, CO2, GLUCOSE, BUN, CREATININE, CA)2021-12-09 10:03:04 Test Item Value Reference Range Interpretation Comments NA (test code = 134 mmol/L 135-145 L 7837658895) K (test code = 4.0 mmol/L 3.5-5.0 7946483495) CL (test code = 108 mmol/L 98-108 5401804947) CO2 TOTAL (test code = 20 mmol/L 23-31 L 1369060803) AGAP (test code = 2-16 6098920967) BUN (test code = 41 mg/dL 7-23 H 5576721148) GLUCOSE (test code = 170 mg/dL 70-110 H 9166467085) CREATININE (test code = 2.07 mg/dL 0.50-1.04 H 6097286242) CALCIUM (test code = 5.9 mg/dL 8.6-10.6 LL 4853670667) eGFR (test code = mL/min/1.73m2 2901572474) FINA (test code = FINA) Association of [...] tests). Lab Interpretation Abnormal (test code = 92846-8) [facility] Test Item Value Reference Range Interpretation Comments MAGNESIUM (test code = 3501634652) 2.0 mg/dL 1.7-2.4 Lab Interpretation (test code = Normal 10664-7) [facility] GLUCOSE (AUTOMATED)2021-12-09 06:58:38 Test Item Value Reference Range Interpretation Comments POCT GLU (test code = 2836114238) 170 mg/dL 70-110 H Lab Interpretation (test code = Abnormal 57288-1) [facility] GLUCOSE (AUTOMATED)2021-12-09 04:01:33 Test Item Value Reference Range Interpretation Comments POCT GLU (test code = 5542933162) 178 mg/dL 70-110 H Lab Interpretation (test code = Abnormal 01084-7) [facility] GLUCOSE (AUTOMATED)2021-12-09 00:51:45 Test Item Value Reference Range Interpretation Comments POCT GLU (test code = 2829615942) 146 mg/dL 70-110 H Lab Interpretation (test code = Abnormal 75945-1) [facility] WITH [id number] 22:08:54 Test Item Value Reference Range Interpretation [...] RDW-SD (test code = 43.0 fL 39.0-49.9 94003-2) RDW-CV (test code = 13.6 % 12.0-15.5 788-0) PLT (test code = See_Comment LL [Automated 777-3) message] The sy stem which generated this result transmitted reference range : 166 - 358 10*3/ ?L. The reference r willem was not used to interpret this result as normal/abnormal . MPV (test code = Not Measure d 89009-6) IPF % (test code = 28.6 % 1.3-7.7 H The IPF v alue may 2439208882) not be reliable when the patien t's platelet count is less than 10 x 10*3/uL due to the higher imprecis ion of the IPF at l ow counts. Platele t count measured by fluorescence method. NRBC/100 WBC (test See_Comment [Automat ed code = 8691068604) message] The system which generated this result transmitted reference range : 0.0 - 10.0 /100 WBCs. The refer ence range was not u sed to interpret th is result as normal/abnormal . NRBC x10^3 (test code See_Comment [Auto mated = 7129485972) message] The s ystem which generated this result transmitted reference range : 10*3/?L. The reference range was not used to interpret this result as normal/abnormal . GRAN MAT (NEUT) % 32.5 % (test code = 770-8) IMM GRAN % (test code 2.50 % = 2473590063) LYMPH % (test code = 32.5 % 736-9) MONO % (test code = 20.0 % 5905-5) EOS % (test code = 12.5 % 713-8) BASO % (test code = 0.0 % 706-2) GRAN MAT x10^3(ANC) 0.13 10*3/uL 1.88-7.09 L (test code = 5354263538) IMM GRAN x10^3 (test <0.03 0.00-0.06 code = 2618756047) LYMPH x10^3 (test code 0.13 10*3/uL 1.32-3.29 L = 731-0) MONO x10^3 (test code 0.08 10*3/uL 0.33-0.92 L = 742-7) EOS x10^3 (test code = 0.05 10*3/uL 0.03-0.39 711-2) BASO x10^3 (test code <0.03 0.01-0.07 = 704-7) Lab Interpretation Abnormal (test code = 76438-8) [facility] GLUCOSE (AUTOMATED)2021-12-08 21:28:54 Test Item Value Reference Range Interpretation Comments POCT GLU (test code = 1435458070) 293 mg/dL 70-110 H Lab Interpretation (test code = Abnormal 67736-2) [facility] GLUCOSE (AUTOMATED)2021-12-08 19:09:43 Test Item Value Reference Range Interpretation Comments POCT GLU (test code = 6234398604) 306 mg/dL 70-110 H Lab Interpretation (test code = Abnormal 84622-2) [facility] 1 Units~Indication: 1) Platelets < 10,000 for bleeding prophylaxis (per hematology); Special Requirements: Leukoreduced (HLA matched)2021-12-08 19:08:27 Test Item Value Reference Range Interpretation Comments Unit Blood Type (test A Pos code = 4410) ISBT Blood Type Code (test code = 722857) Unit Number (test code [id number] = 4411) Blood Expiration Date & Time (test code = 383889) Status Information Issued (test code = 4412) Product Identification Platelets (test code = 4413) Product Code (test [id number] Performed at [facility] code = 4414) Laboratory Services - [facility] Blood [id number] [place] [address] [id number] Free: [phone] A No. [id number] [facility] GLUCOSE (AUTOMATED)2021-12-08 17:21:14 Test Item Value Reference Range Interpretation Comments POCT GLU (test code = 8429271591) 328 mg/dL 70-110 H Lab Interpretation (test code = Abnormal 17555-7) [facility] WITH [id number] 14:17:38 Test Item Value Reference Range Interpretation [...] RDW-SD (test code = 45.2 fL 39.0-49.9 37269-2) RDW-CV (test code = 13.8 % 12.0-15.5 788-0) PLT (test code = See_Comment LL [Automated 777-3) message] The sy stem which generated this result transmitted reference range : 166 - 358 10*3/ ?L. The reference r willem was not used to interpret this result as normal/abnormal . MPV (test code = Not Measure d 57649-0) IPF % (test code = 22.1 % 1.3-7.7 H The IPF v alue may 1971001806) not be reliable when the patien t's platelet count is less than 10 x 10*3/uL due to the higher imprecis ion of the IPF at l ow counts. Platele t count measured by fluorescence method. NRBC/100 WBC (test See_Comment [Automat ed code = 6095404331) message] The system which generated this result transmitted reference range : 0.0 - 10.0 /100 WBCs. The refer ence range was not u sed to interpret th is result as normal/abnormal . NRBC x10^3 (test code See_Comment [Auto mated = 1029125824) message] The s ystem which generated this result transmitted reference range : 10*3/?L. The reference range was not used to interpret this result as normal/abnormal . SEG % (test code = 2 % 33-76 L 55333-8) BAND % (test code = 2 % 0-1 H 44268-5) META % (test code = 1 % See_Comment H [Automa allison 07095-6) message] The sy stem which generated this result transmitted reference range : <=0. The refere nce range was not u sed to interpret th is result as normal/abnormal . MYELO % (test code = 2 % See_Comment H [Autom ated 37747-9) message] The sy stem which generated this result transmitted reference range : <=0. The refere nce range was not u sed to interpret th is result as normal/abnormal . LYMPH % (test code = 64 % 14-54 H 83564-1) REACT LYMPH % (test 3 % code = 1246772727) MONO % (test code = 14 % 0-4 H 97784-0) EOS % (test code = 12 % 0-3 H 31732-4) ANC (test code = 0.02 10*3/uL 1.88-7.09 L 753-4) Lab Interpretation Abnormal (test code = 58985-7) [facility]-08 14:07:32 Test Item Value Reference Range Interpretation Comments POCT GLU (test code = 6938712915) 323 mg/dL 70-110 H Lab Interpretation (test code = Abnormal 26166-2) [facility] METABOLIC PANEL (NA, K, CL, CO2, GLUCOSE, BUN, CREATININE, CA)2021-12-08 12:17:24 Test Item Value Reference Range Interpretation Comments NA (test code = 138 mmol/L 135-145 8490485197) K (test code = 4.4 mmol/L 3.5-5.0 7836310056) CL (test code = 111 mmol/L 98-108 H 3252515311) CO2 TOTAL (test code = 20 mmol/L 23-31 L 0641288300) AGAP (test code = 2-16 8724016711) BUN (test code = 41 mg/dL 7-23 H 2275818749) GLUCOSE (test code = 265 mg/dL 70-110 H 5163916807) CREATININE (test code = 1.96 mg/dL 0.50-1.04 H 3805457198) CALCIUM (test code = 6.0 mg/dL 8.6-10.6 L 5635638502) eGFR (test code = mL/min/1.73m2 4579902784) FINA (test code = FINA) Association of [...] tests). Lab Interpretation Abnormal (test code = 60244-2) [facility] 12:17:24 Test Item Value Reference Range Interpretation Comments MAGNESIUM (test code = 3020209085) 2.0 mg/dL 1.7-2.4 Lab Interpretation (test code = Normal 37275-0) [facility]2021-12-08 11:33:36 Test Item Value Reference Range Interpretation Comments POCT GLU (test code = 4228416549) 300 mg/dL 70-110 H Lab Interpretation (test code = Abnormal 70921-2) [facility] (in units)~2021-12-08 08:28:56 Test Item Value Reference Range Interpretation Comments Unit Blood Type (test B Neg code = 4410) ISBT Blood Type Code (test code = 589888) Unit Number (test code [id number] = 4411) Blood Expiration Date & Time (test code = 955224) Status Information Issued (test code = 4412) Product Identification Platelets (test code = 4413) Product Code (test [id number] Performed at [facility] code = 4414) Laboratory Services - [facility] Blood [id number] [place] [address] 486[address]Ncku Free: [phone] A No. [id number] [facility]2021-12-08 08:24:56 Test Item Value Reference Range Interpretation Comments POCT GLU (test code = 0261918181) 238 mg/dL 70-110 H Lab Interpretation (test code = Abnormal 27623-0) [facility] WITH [id number] 05:54:34 Test Item Value Reference Range Interpretation Comments WBC (test code = See_Comment LL [Automated 6690-2) message] The system which generated this result transmit allison reference range : 4.30 - 11.10 10*3/?L. The reference range was not used to interpret this result as normal/abnormal . RBC (test code = See_Comment L [Automated 949-8) message] The system which generated this result [...] RDW-SD (test code = 43.7 fL 39.0-49.9 96175-7) RDW-CV (test code = 13.6 % 12.0-15.5 788-0) PLT (test code = See_Comment LL [Automated 777-3) message] The system which generated this result transmit allison reference range : 166 - 358 10*3/ ?L. The reference range was not u sed to interpret th is result as normal/abnormal . MPV (test code = Not Measure d 46961-4) IPF % (test code = 17.6 % 1.3-7.7 H The IPF v alue may 7679745806) not be reliable when the patien t's platelet count is less than 10 x 10*3/uL due to the higher imprecis ion of the IPF at l ow counts. Platele t count measured by fluorescence method. NRBC/100 WBC (test See_Comment [Automat ed code = 2767966837) message] The system which generated this result transmit allison reference range : 0.0 - 10.0 /100 WBCs. The reference range was not used to interpret this result as normal/abnormal . NRBC x10^3 (test code <0.01 See_Comment [Auto mated = 0014260197) message] The system which generated this result transmit allison reference range : 10*3/?L. The reference range was not used to interpret this result as normal/abnormal . GRAN MAT (NEUT) % 0.0 % (test code = 770-8) IMM GRAN % (test code 7.20 % = 1445910596) LYMPH % (test code = 46.4 % 736-9) MONO % (test code = 32.1 % 5905-5) EOS % (test code = 14.3 % 713-8) BASO % (test code = 0.0 % 706-2) GRAN MAT x10^3(ANC) <0.03 1.88-7.09 L (test code = 7253892999) IMM GRAN x10^3 (test <0.03 0.00-0.06 code = 0195683139) LYMPH x10^3 (test 0.13 10*3/uL 1.32-3.29 L code = 731-0) MONO x10^3 (test code 0.09 10*3/uL 0.33-0.92 L = 742-7) EOS x10^3 (test code 0.04 10*3/uL 0.03-0.39 = 711-2) BASO x10^3 (test code <0.03 0.01-0.07 = 704-7) FINA (test code = FINA) Qns for manual diff/only 1 lymphyces on the smear/wrm Lab Interpretation Abnormal (test code = 88348-7) [facility] METABOLIC PANEL (NA, K, CL, CO2, GLUCOSE, BUN, CREATININE, CA)2021-12-08 05:16:37 Test Item Value Reference Range Interpretation Comments NA (test code = 138 mmol/L 135-145 4930364124) K (test code = 4.1 mmol/L 3.5-5.0 1524865077) CL (test code = 112 mmol/L 98-108 H 1567967318) CO2 TOTAL (test code = 19 mmol/L 23-31 L 8031289595) AGAP (test code = 2-16 1740415105) BUN (test code = 41 mg/dL 7-23 H 3998026720) GLUCOSE (test code = 209 mg/dL 70-110 H 2047564439) CREATININE (test code = 1.89 mg/dL 0.50-1.04 H 4235372755) CALCIUM (test code = 6.0 mg/dL 8.6-10.6 L 7951034169) eGFR (test code = mL/min/1.73m2 3645405364) FINA (test code = FINA) Association of [...] tests). Lab Interpretation Abnormal (test code = 68227-4) [facility] GLUCOSE (AUTOMATED)2021-12-08 03:56:37 Test Item Value Reference Range Interpretation Comments POCT GLU (test code = 0326152412) 213 mg/dL 70-110 H Lab Interpretation (test code = Abnormal 95280-2) [facility] GLUCOSE (AUTOMATED)2021-12-08 01:26:12 Test Item Value Reference Range Interpretation Comments POCT GLU (test code = 0172649050) 222 mg/dL 70-110 H Lab Interpretation (test code = Abnormal 63692-3) [facility] GLUCOSE (AUTOMATED)2021-12-07 21:55:43 Test Item Value Reference Range Interpretation Comments POCT GLU (test code = 2725547953) 187 mg/dL 70-110 H Lab Interpretation (test code = Abnormal 11496-0) [facility] WITH [id number] 20:52:51 Test Item Value Reference Range Interpretation [...] RDW-SD (test code = 43.2 fL 39.0-49.9 18324-3) RDW-CV (test code = 13.6 % 12.0-15.5 788-0) PLT (test code = See_Comment LL [Automated 777-3) message] The sy stem which generated this result transmitted reference range : 166 - 358 10*3/ ?L. The reference r willem was not used to interpret this result as normal/abnormal . MPV (test code = Not Measure d 40940-5) IPF % (test code = 8.1 % 1.3-7.7 H The IPF v alue may 5457251913) not be reliable when the patien t's platelet count is less than 10 x 10*3/uL due to the higher imprecis ion of the IPF at l ow counts. Platele t count measured by fluorescence method. NRBC/100 WBC (test See_Comment [Automat ed code = 0034293684) message] The system which generated this result transmitted reference range : 0.0 - 10.0 /100 WBCs. The refer ence range was not u sed to interpret th is result as normal/abnormal . NRBC x10^3 (test code <0.01 See_Comment [Auto mated = 3519825363) message] The s ystem which generated this result transmitted reference range : 10*3/?L. The reference range was not used to interpret this result as normal/abnormal . GRAN MAT (NEUT) % 8.0 % (test code = 770-8) IMM GRAN % (test code 0.00 % = 4836912937) LYMPH % (test code = 48.0 % 736-9) MONO % (test code = 12.0 % 5905-5) EOS % (test code = 32.0 % 713-8) BASO % (test code = 0.0 % 706-2) GRAN MAT x10^3(ANC) <0.03 1.88-7.09 L (test code = 3199007976) IMM GRAN x10^3 (test <0.03 0.00-0.06 code = 9670216019) LYMPH x10^3 (test code 0.12 10*3/uL 1.32-3.29 L = 731-0) MONO x10^3 (test code 0.03 10*3/uL 0.33-0.92 L = 742-7) EOS x10^3 (test code = 0.08 10*3/uL 0.03-0.39 711-2) BASO x10^3 (test code <0.03 0.01-0.07 = 704-7) Lab Interpretation Abnormal (test code = 54043-1) [facility] vanc level 23 hours post [id number] 19:36:49 Test Item Value Reference Range Interpretation Comments VANCO TROUGH (test code 11.2 ug/mL 10.0-20.0 = 0449608314) FINA (test code = FINA) Toxic Range: ?>20 ug/mL 15-20 ug/mL is recommended for severe infection or when Vancomycin WILSON is greater than or equal to 2. Lab Interpretation (test Normal code = 75955-4) [facility]21-[facility]-07 19:19:35 Test Item Value Reference Range Interpretation Comments POCT GLU (test code = 0700862713) 238 mg/dL 70-110 H Lab Interpretation (test code = Abnormal 60091-0) [facility] [id number] 16:56:47 Test Item Value Reference Range Interpretation Comments WBC (test code = See_Comment LL [Automated 0790-2) message] The sy stem which generated this result transmitted reference range : 4.30 - 11.10 10*3/?L. The reference range was not used to interpret this result as normal/abnormal . RBC (test code = See_Comment L [Automated 199-8) message] The sy stem which generated this [...] RDW-SD (test code = 44.3 fL 39.0-49.9 26859-7) RDW-CV (test code = 13.5 % 12.0-15.5 788-0) PLT (test code = See_Comment LL [Automated 777-3) message] The sy stem which generated this result transmitted reference range : 166 - 358 10*3/ ?L. The reference r willem was not used to interpret this result as normal/abnormal . MPV (test code = 12.1 fL 9.5-12.9 69641-7) IPF % (test code = 2.3 % 1.3-7.7 Platelet count 7243475126) measured by fluorescence method. NRBC/100 WBC (test See_Comment [Automat ed code = 2079176144) message] The system which generated this result transmitted reference range : 0.0 - 10.0 /100 WBCs. The refer ence range was not u sed to interpret th is result as normal/abnormal . NRBC x10^3 (test code <0.01 See_Comment [Auto mated = 6351530623) message] The s ystem which generated this result transmitted reference range : 10*3/?L. The reference range was not used to interpret this result as normal/abnormal . SEG % (test code = 1 % 33-76 L 01911-0) LYMPH % (test code = 49 % 14-54 74649-5) REACT LYMPH % (test 2 % code = 0410977270) MONO % (test code = 4 % 0-4 84402-0) EOS % (test code = 44 % 0-3 H 25779-2) ANC (test code = 0.00 10*3/uL 1.88-7.09 L 753-4) Lab Interpretation Abnormal (test code = 17457-4) [facility]2021-12-07 15:58:35 Test Item Value Reference Range Interpretation Comments POCT GLU (test code = 0078851854) 257 mg/dL 70-110 H Lab Interpretation (test code = Abnormal 23440-2) [facility] METABOLIC PANEL (NA, K, CL, CO2, GLUCOSE, BUN, CREATININE, CA)2021-12-07 14:49:33 Test Item Value Reference Range Interpretation Comments NA (test code = 135 mmol/L 135-145 6792365211) K (test code = 3.6 mmol/L 3.5-5.0 1448172621) CL (test code = 111 mmol/L 98-108 H 0606464612) CO2 TOTAL (test code = 16 mmol/L 23-31 L 6497877287) AGAP (test code = 2-16 6242101146) BUN (test code = 49 mg/dL 7-23 H 2142739312) GLUCOSE (test code = 242 mg/dL 70-110 H 0352065906) CREATININE (test code = 1.82 mg/dL 0.50-1.04 H 3469866934) CALCIUM (test code = 6.0 mg/dL 8.6-10.6 L 1380722251) eGFR (test code = mL/min/1.73m2 6154460598) FINA (test code = FINA) Association of [...] tests). Lab Interpretation Abnormal (test code = 06970-5) [facility] 14:49:33 Test Item Value Reference Range Interpretation Comments MAGNESIUM (test code = 8090913712) 2.0 mg/dL 1.7-2.4 Lab Interpretation (test code = Normal 77866-0) [facility]2022-06-28 13:35:43 Test Item Value Reference Range Interpretation Comments Fibrinogen (test code = 1053796501) 646 mg/dL 167-453 H Lab Interpretation (test code = Abnormal 25021-7) [facility]2021-12-07 12:44:58 Test Item Value Reference Range Interpretation Comments POCT GLU (test code = 0660766101) 231 mg/dL 70-110 H Lab Interpretation (test code = Abnormal 52760-6) [facility] Hospital[facility]are Platelets (in units): 1 Units~Indication: 1) Platelets < 10,000 for bleeding vmixtgttits5783-60-09 11:30:59 Test Item Value Reference Range Interpretation Comments Unit Blood Type (test O Pos code = 4410) ISBT Blood Type Code (test code = 705399) Unit Number (test code [id number] = 4411) Blood Expiration Date & Time (test code = 828038) Status Information Issued (test code = 4412) Product Identification Platelets (test code = 4413) Product Code (test [id number] Performed at [facility] code = 4414) Laboratory Services - [facility] Blood [address] [place] [address] 45140Fqnb Free: [phone] A No. [id number] [facility] HospitalPrep[facility] Packed RBC (in units), 1 Units 2021-12-07 07:24:01 Test Item Value Reference Range Interpretation Comments Cross Match Result Compatible (test code = 4409) ISBT Blood Type Code (test code = 033889) Unit Blood Type (test O Pos code = 4410) Unit Number (test [id number] code = 4411) Blood Expiration Date & Time (test code = 297881) Status Information Issued (test code = 4412) Product Red Blood Cells Identification (test code = 4413) Product Code (test [id number] Performed at [facility] code = 4414) Laboratory Services - [facility] Blood [address] [place] [address]Hemu Free: [phone] A No. [id number] [facility]CBC WITHOUT [id number] 04:58:12 Test Item Value Reference Range Interpretation Comments WBC (test code = See_Comment LL [Automated message] 6690-2) The system [employer] generated this result transmitted ref erence range: 4.30 - 1 1.10 10*3/?L. The reference range was not used to int erpret this result as normal/abnormal . RBC (test code = 789-8) See_Comment L [Au tomated message] The system [employer] generated this result transmitted ref erence range: [...] See_Comment LL [Au tomated message] The system [employer] generated this result transmitted ref erence range: 166 - 35 8 10*3/?L. The reference range was not used to int erpret this result as normal/abnormal . MPV (test code = 11.1 fL 9.5-12.9 39063-2) RDW-CV (test code = 13.6 % 12.0-15.5 788-0) RDW-SD (test code = 43.3 fL 39.0-49.9 05938-2) NRBC x10^3 (test code = <0.01 See_Comment [Au tomated message] 2073130549) The system [employer] generated this result transmitted ref erence range: 10*3/?L. The reference range was not used to int erpret this result as normal/abnormal . NRBC/100 WBC (test code See_Comment [Au tomated message] = 8883320604) The system [employer] generated this result transmitted ref erence range: 0.0 - 10 .0 /100 WBCs. The reference range was not used to int erpret this result as normal/abnormal . IPF % (test code = 4.9 % 1.3-7.7 The IPF v alue may not 9840743671) be reliable whe n the patient's plate let count is less t ley 10 x 10*3/uL due t o the higher imprecis ion of the IPF at low counts. Platele t count measured by fluorescence me thod. Lab Interpretation Abnormal (test code = 34346-7) [facility] HospitalIONIZED [id number] 04:52:10 Test Item Value Reference Range Interpretation Comments IONIZED CA (test code = 3.30 mg/dL 4.50-5.30 L 7548351065) PH SERUM (test code = 7126978754) 7.35-7.45 Lab Interpretation (test code = Abnormal 27377-8) [facility] METABOLIC PANEL (NA, K, CL, CO2, GLUCOSE, BUN, CREATININE, CA)2021-12-07 04:31:21 Test Item Value Reference Range Interpretation Comments NA (test code = 136 mmol/L 135-145 7823526548) K (test code = 3.1 mmol/L 3.5-5.0 L 1806975762) CL (test code = 110 mmol/L 98-108 H 1832359752) CO2 TOTAL (test code = 19 mmol/L 23-31 L 9643638729) AGAP (test code = 2-16 2941530040) BUN (test code = 57 mg/dL 7-23 H 3997019554) GLUCOSE (test code = 234 mg/dL 70-110 H 3931319532) CREATININE (test code = 1.78 mg/dL 0.50-1.04 H 3250555398) CALCIUM (test code = 5.4 mg/dL 8.6-10.6 LL 8030109279) eGFR (test code = mL/min/1.73m2 8041077728) FINA (test code = FINA) Association of [...] tests). Lab Interpretation Abnormal (test code = 84104-7) [facility]2021-12-07 01:21:49 Test Item Value Reference Range Interpretation Comments POCT GLU (test code = 4618071291) 277 mg/dL 70-110 H Lab Interpretation (test code = Abnormal 07145-6) [facility] [id number] 22:51:07 Test Item Value Reference Range Interpretation Comments IONIZED CA (test code = 3.20 mg/dL 4.50-5.30 L 3270637442) PH SERUM (test code = 0356393333) 7.35-7.45 Lab Interpretation (test code = Abnormal 92397-2) [facility]2021-12-06 21:34:52 Test Item Value Reference Range Interpretation Comments POCT GLU (test code = 5351714415) 270 mg/dL 70-110 H Lab Interpretation (test code = Abnormal 33325-7) [facility] [id number] 20:54:41 Test Item Value Reference Range Interpretation Comments WBC (test code = 6690-2) See_Comment LL [A utomated message] The system [employer] generated this result transmit allison reference range : 4.30 - 11.10 10*3/?L. The reference range was not used to interpret this result as normal/abnormal . RBC (test code = 789-8) See_Comment L [Au tomated message] The system [employer] generated this result transmit allison reference range [...] See_Comment LL [Au tomated message] The system [employer] generated this result transmit lalison reference range : 166 - 358 10*3/?L. The reference range was not used to interpret this result as normal/abnormal . MPV (test code = 11.9 fL 9.5-12.9 66745-9) RDW-CV (test code = 13.4 % 12.0-15.5 788-0) RDW-SD (test code = 42.0 fL 39.0-49.9 77779-2) NRBC x10^3 (test code = <0.01 See_Comment [Au tomated message] 7348307043) The system [employer] h generated this result transmit allison reference range : 10*3/?L. The reference range was not used to interpret this result as normal/abnormal . NRBC/100 WBC (test code See_Comment [Au tomated message] = 5221993672) The system [employer] generated this result transmit allison reference range : 0.0 - 10.0 /100 WBC s. The reference r willem was not used to interpret this result as normal/abnormal . IPF % (test code = 5729687050) Lab Interpretation (test Abnormal code = 38993-2) [facility] - Draw level 24 hours post [id number] 20:50:18 Test Item Value Reference Range Interpretation Comments VANCO TROUGH (test code 8.3 ug/mL 10.0-20.0 L = 5521911287) FINA (test code = FINA) Toxic Range: ?>20 ug/mL 15-20 ug/mL is recommended for severe infection or when Vancomycin WILSON is greater than or equal to 2. Lab Interpretation (test Abnormal code = 60291-1) [facility] WITH [id number] 17:57:45 Test Item Value Reference Range Interpretation Comments WBC (test code = See_Comment LL [Automated 9907-2) message] The sy stem which generated this result transmitted reference range : 4.30 - 11.10 10*3/?L. The reference range was not used to interpret this result as normal/abnormal . RBC (test code = See_Comment L [Automated 651-8) message] The sy stem which generated this [...] RDW-SD (test code = 43.4 fL 39.0-49.9 36852-5) RDW-CV (test code = 13.2 % 12.0-15.5 788-0) PLT (test code = See_Comment LL [Automated 777-3) message] The sy stem which generated this result transmitted reference range : 166 - 358 10*3/ ?L. The reference r willem was not used to interpret this result as normal/abnormal . MPV (test code = 12.5 fL 9.5-12.9 20221-1) IPF % (test code = 1.2 % 1.3-7.7 L Platelet count 2846154833) measured by fluorescence method. NRBC/100 WBC (test See_Comment [Automat ed code = 0458755435) message] The system which generated this result transmitted reference range : 0.0 - 10.0 /100 WBCs. The refer ence range was not u sed to interpret th is result as normal/abnormal . NRBC x10^3 (test code <0.01 See_Comment [Auto mated = 5130183737) message] The s ystem which generated this result transmitted reference range : 10*3/?L. The reference range was not used to interpret this result as normal/abnormal . LYMPH % (test code = 86 % 14-54 H 25699-2) MONO % (test code = 3 % 0-4 70515-9) EOS % (test code = 11 % 0-3 H 90265-8) ANC (test code = 0.00 10*3/uL 1.88-7.09 L 753-4) Lab Interpretation Abnormal (test code = 21322-6) [facility] GLUCOSE (AUTOMATED)2021-12-06 16:07:01 Test Item Value Reference Range Interpretation Comments POCT GLU (test code = 7383282727) 281 mg/dL 70-110 H Lab Interpretation (test code = Abnormal 08467-1) [facility] WITH [id number] 14:39:43 Test Item Value Reference Range Interpretation [...] RDW-SD (test code = 42.9 fL 39.0-49.9 36460-0) RDW-CV (test code = 13.2 % 12.0-15.5 788-0) PLT (test code = See_Comment LL [Automated 777-3) message] The sy stem which generated this result transmitted reference range : 166 - 358 10*3/ ?L. The reference r willem was not used to interpret this result as normal/abnormal . MPV (test code = 12.4 fL 9.5-12.9 13059-7) IPF % (test code = 0.9 % 1.3-7.7 L The IPF v alue may 7042196310) not be reliable when the patien t's platelet count is less than 10 x 10*3/uL due to the higher imprecis ion of the IPF at l ow counts. Platele t count measured by fluorescence method. NRBC/100 WBC (test See_Comment [Automat ed code = 1214130300) message] The system which generated this result transmitted reference range : 0.0 - 10.0 /100 WBCs. The refer ence range was not u sed to interpret th is result as normal/abnormal . NRBC x10^3 (test code See_Comment [Auto mated = 1841847902) message] The s ystem which generated this result transmitted reference range : 10*3/?L. The reference range was not used to interpret this result as normal/abnormal . LYMPH % (test code = 86 % 14-54 H 44963-5) MONO % (test code = 6 % 0-4 H 79568-8) EOS % (test code = 8 % 0-3 H 22337-3) ANC (test code = 0.00 10*3/uL 1.88-7.09 L 753-4) Lab Interpretation Abnormal (test code = 61138-0) [facility] METABOLIC PANEL (NA, K, CL, CO2, GLUCOSE, BUN, CREATININE, CA)2021-12-06 13:30:44 Test Item Value Reference Range Interpretation Comments NA (test code = 133 mmol/L 135-145 L 2402826623) K (test code = 3.3 mmol/L 3.5-5.0 L 7703409026) CL (test code = 109 mmol/L 98-108 H 1193377627) CO2 TOTAL (test code = 17 mmol/L 23-31 L 4383623234) AGAP (test code = 2-16 9940597106) BUN (test code = 62 mg/dL 7-23 H 1177017073) GLUCOSE (test code = 302 mg/dL 70-110 H 5212848139) CREATININE (test code = 1.77 mg/dL 0.50-1.04 H 4189318813) CALCIUM (test code = 5.0 mg/dL 8.6-10.6 LL 7149561167) eGFR (test code = mL/min/1.73m2 1083178497) FINA (test code = FINA) Association of [...] tests). Lab Interpretation Abnormal (test code = 45160-2) [facility]2021-12-06 12:43:19 Test Item Value Reference Range Interpretation Comments POCT GLU (test code = 8970972588) 342 mg/dL 70-110 H Lab Interpretation (test code = Abnormal 34299-1) [facility] Peripheral Vein # 12:01:19 Test Item Value Reference Range Interpretation Comments Blood Culture-Aerobic No organisms No growth Previo us (test code = 16172-1) isolated prelim inary verified result was Culture [...] Culture-Anaerobic isolated preliminar y (test code = 39046-9) verifi ed result was Culture In Progress [...] CDT Lab Interpretation Normal (test code = 25399-9) [facility] Peripheral Gzzq3983-81-35 12:01:19 Test Item Value Reference Range Interpretation Comments Blood Culture-Aerobic No organisms No growth Previo us (test code = 42007-2) isolated prelim inary verified result was Culture [...] Culture-Anaerobic isolated preliminar y (test code = 11307-1) verifi ed result was Culture In Progress [...] CDT Lab Interpretation Normal (test code = 95853-7) [facility] Packed RBC (in units), 1 Units 2021-12-06 10:14:34 Test Item Value Reference Range Interpretation Comments Cross Match Result Compatible (test code = 4409) ISBT Blood Type Code (test code = 058130) Unit Blood Type (test O Pos code = 4410) Unit Number (test [id number] code = 4411) Blood Expiration Date & Time (test code = 668750) Status Information Issued (test code = 4412) Product Red Blood Cells Identification (test code = 4413) Product Code (test T1569G71 Performed at [facility] code = 4414) Laboratory Services - [facility] Blood [address] [place] [address]7730Jyqt Free: [phone] A No. [id number] [facility] WITH [id number] 07:37:57 Test Item Value Reference Range Interpretation Comments WBC (test code = See_Comment LL [Automated message] 6690-2) The system [employer] generated this result transmitted ref erence range: 4.30 - 1 1.10 10*3/?L. The reference range was not used to int erpret this result as normal/abnormal . RBC (test code = 789-8) See_Comment L [Au tomated message] The system [employer] generated this result transmitted ref erence range: [...] RDW-SD (test code = 43.8 fL 39.0-49.9 82681-5) RDW-CV (test code = 13.6 % 12.0-15.5 788-0) PLT (test code = 777-3) See_Comment LL [Au tomated message] The system [employer] generated this result transmitted ref erence range: 166 - 35 8 10*3/?L. The reference range was not used to int erpret this result as normal/abnormal . MPV (test code = Not Measure d 48496-9) IPF % (test code = 0.8 % 1.3-7.7 L Platelet count 3172185097) measured by fluorescence me thod. NRBC/100 WBC (test code See_Comment [Au tomated message] = 0868537332) The system [employer] generated this result transmitted ref erence range: 0.0 - 10 .0 /100 WBCs. The reference range was not used to int erpret this result as normal/abnormal . NRBC x10^3 (test code = <0.01 See_Comment [Au tomated message] 7366378807) The system [employer] generated this result transmitted ref erence range: 10*3/?L. The reference range was not used to int erpret this result as normal/abnormal . SEG % (test code = 1 % 33-76 L 17189-1) LYMPH % (test code = 82 % 14-54 H 62593-6) MONO % (test code = 2 % 0-4 65890-0) EOS % (test code = 15 % 0-3 H 36217-2) ANC (test code = 753-4) Unab le to calculate due to low whit e count Lab Interpretation Abnormal (test code = 72462-1) [facility]. METABOLIC PANEL (78589)2021-12-06 06:20:44 Test Item Value Reference Range Interpretation Comments NA (test code = 134 mmol/L 135-145 L 8779837336) K (test code = 3.8 mmol/L 3.5-5.0 Slight 6925406909) hemolysis CL (test code = 109 mmol/L 98-108 H 7558195785) CO2 TOTAL (test code 20 mmol/L 23-31 L = 4060531545) AGAP (test code = 2-16 0115081142) BUN (test code = 54 mg/dL 7-23 H Slight 0067690465) hemolysis GLUCOSE (test code = 186 mg/dL 70-110 H 8684952141) CREATININE (test code 1.55 mg/dL 0.50-1.04 H = 7432906155) TOTAL BILI (test code 0.9 mg/dL 0.1-1.1 = 2260249040) CALCIUM (test code = 4.6 mg/dL 8.6-10.6 LL 4130669465) T PROTEIN (test code 4.9 g/dL 6.3-8.2 L = 3045361001) ALBUMIN (test code = 2.1 g/dL 3.5-5.0 L 5659854643) ALK PHOS (test code = 35 U/L 34-122 Slight 2071189294) hemolysis ALTv (test code = 11 U/L 5-35 1742-6) AST(SGOT) (test code 32 U/L 13-40 Slight = 5885864922) hemolysis eGFR (test code = mL/min/1.73m2 0135028122) FINA (test code = FINA) Association of [...] tests). Lab Interpretation Abnormal (test code = 16739-9) [facility]2022-[facility]-27 06:17:34 Test Item Value Reference Range Interpretation Comments MAGNESIUM (test code = 3097836512) 1.9 mg/dL 1.7-2.4 Lab Interpretation (test code = Normal 88403-5) [facility] HospitalPROCALCITONIN2022-06-27 04:12:45 Test Item Value Reference Range Interpretation Comments Procalcitonin (test 1.10 ng/mL <0.07 H code = 1618378510) FINA (test code = FINA) INTERPRETATION OF [...] lung abscess/empyema. For further information please refer to:[email or web address] Lab Interpretation Abnormal (test code = 66596-1) [facility] HospitalPrepare Platelets (in units): 1 Units~Indication: 1) Platelets < 10,000 for bleeding kzlkufzwqys6254-56-54 02:21:17 Test Item Value Reference Range Interpretation Comments Unit Blood Type (test O Pos code = 4410) ISBT Blood Type Code (test code = 426555) Unit Number (test code [id number] = 4411) Blood Expiration Date & Time (test code = 620051) Status Information Issued (test code = 4412) Product Identification Platelets (test code = 4413) Product Code (test R1614DZ5 Performed at [facility] code = 4414) Laboratory Services - [facility] Blood [address] [place] [address] 16[address]Itzm Free: [phone] A No. [id number] [facility] GLUCOSE (AUTOMATED)2021-12-06 01:51:04 Test Item Value Reference Range Interpretation Comments POCT GLU (test code = 3598510363) 176 mg/dL 70-110 H Lab Interpretation (test code = Abnormal 76052-3) [facility] GLUCOSE (AUTOMATED)2021-12-05 22:02:21 Test Item Value Reference Range Interpretation Comments POCT GLU (test code = 7652568633) 130 mg/dL 70-110 H Lab Interpretation (test code = Abnormal 21169-9) [facility] GLUCOSE (AUTOMATED)2021-12-05 17:41:32 Test Item Value Reference Range Interpretation Comments POCT GLU (test code = 5585483150) 178 mg/dL 70-110 H Lab Interpretation (test code = Abnormal 30214-6) [facility] HospitalType [facility] Screen - ONCE Wvmjurq3967-36-05 16:45:28 Test Item Value Reference Range Interpretation Comments ABO & RH (test code O Positive Performe d at [facility] = 20) Laboratory Serv [facility] Blood Bank[address], [place] [address]Qbfy Free: [phone] A No. [id number] IAT (test code = Negative Performed a t [facility] 1185) Laboratory Serv [facility] Blood [address], [place] [address]Lwcu Free: [phone] A No. [id number] [facility]2021-12-05 12:44:52 Test Item Value Reference Range Interpretation Comments POCT GLU (test code = 2736102033) 156 mg/dL 70-110 H Lab Interpretation (test code = Abnormal 22589-1) [facility] WITH [id number] 11:46:34 Test Item Value Reference Range Interpretation [...] RDW-SD (test code = 42.5 fL 39.0-49.9 54677-3) RDW-CV (test code = 13.1 % 12.0-15.5 788-0) PLT (test code = See_Comment LL [Automated 777-3) message] The sy stem which generated this result transmitted reference range : 166 - 358 10*3/ ?L. The reference r willem was not used to interpret this result as normal/abnormal . MPV (test code = 9.9 fL 9.5-12.9 15533-2) IPF % (test code = 0.8 % 1.3-7.7 L The IPF v alue may 4115676685) not be reliable when the patien t's platelet count is less than 10 x 10*3/uL due to the higher imprecis ion of the IPF at l ow counts. Platele t count measured by fluorescence method. NRBC/100 WBC (test See_Comment [Automat ed code = 4308478797) message] The system which generated this result transmitted reference range : 0.0 - 10.0 /100 WBCs. The refer ence range was not u sed to interpret th is result as normal/abnormal . NRBC x10^3 (test code <0.01 See_Comment [Auto mated = 6704090303) message] The s ystem which generated this result transmitted reference range : 10*3/?L. The reference range was not used to interpret this result as normal/abnormal . GRAN MAT (NEUT) % 2.8 % (test code = 770-8) IMM GRAN % (test code 0.00 % = 9430885291) LYMPH % (test code = 88.9 % 736-9) MONO % (test code = 0.0 % 5905-5) EOS % (test code = 8.3 % 713-8) BASO % (test code = 0.0 % 706-2) GRAN MAT x10^3(ANC) <0.03 1.88-7.09 L (test code = 9691388083) IMM GRAN x10^3 (test <0.03 0.00-0.06 code = 9447448872) LYMPH x10^3 (test code 0.32 10*3/uL 1.32-3.29 L = 731-0) MONO x10^3 (test code <0.03 0.33-0.92 L = 742-7) EOS x10^3 (test code = 0.03 10*3/uL 0.03-0.39 711-2) BASO x10^3 (test code <0.03 0.01-0.07 = 704-7) Lab Interpretation Abnormal (test code = 25165-2) [facility] GLUCOSE (AUTOMATED)2021-12-05 10:17:45 Test Item Value Reference Range Interpretation Comments POCT GLU (test code = 7617291331) 158 mg/dL 70-110 H Lab Interpretation (test code = Abnormal 81715-8) [facility] GLUCOSE (AUTOMATED)2021-12-05 05:48:51 Test Item Value Reference Range Interpretation Comments POCT GLU (test code = 2636282867) 154 mg/dL 70-110 H Lab Interpretation (test code = Abnormal 04089-0) [facility] GLUCOSE (AUTOMATED)2021-12-05 01:17:12 Test Item Value Reference Range Interpretation Comments POCT GLU (test code = 6432537447) 171 mg/dL 70-110 H Lab Interpretation (test code = Abnormal 17862-2) [facility] GLUCOSE (AUTOMATED)2021-12-04 21:33:40 Test Item Value Reference Range Interpretation Comments POCT GLU (test code = 9861580003) 175 mg/dL 70-110 H Lab Interpretation (test code = Abnormal 82637-0) [facility] Test Item Value Reference Range Interpretation Comments METHOTREX (test code <0.050 umol/L = 7595022751) FINA (test code = THERAPEUTIC RANGE = FINA) VARIABLE (DEPENDS ON TREATMENT PROTOCOL)TOXIC RANGE = GREATER THAN 10.00 UMOL/L @ 24 HRS ?GREATER THAN ?1.00 UMOL/L @ 48 HRS ?GREATER THAN ?0.10 UMOL/L @ 72 HRS Test developed and characteristics determined by [facility] Laboratory Services. [facility] GLUCOSE (AUTOMATED)2021-12-04 16:28:19 Test Item Value Reference Range Interpretation Comments POCT GLU (test code = 8928998112) 190 mg/dL 70-110 H Lab Interpretation (test code = Abnormal 72366-4) [facility] GLUCOSE (AUTOMATED)2021-12-04 12:43:03 Test Item Value Reference Range Interpretation Comments POCT GLU (test code = 1820080012) 202 mg/dL 70-110 H Lab Interpretation (test code = Abnormal 11364-4) [facility] WITH [id number] 11:43:45 Test Item Value Reference Range Interpretation [...] RDW-SD (test code = 45.6 fL 39.0-49.9 99236-5) RDW-CV (test code = 13.6 % 12.0-15.5 788-0) PLT (test code = See_Comment LL [Automated 777-3) message] The sy stem which generated this result transmitted reference range : 166 - 358 10*3/ ?L. The reference r willem was not used to interpret this result as normal/abnormal . MPV (test code = 10.8 fL 9.5-12.9 97854-2) IPF % (test code = 2.1 % 1.3-7.7 Platelet count 6742710602) measured by fluorescence method. NRBC/100 WBC (test See_Comment [Automat ed code = 8104488503) message] The system which generated this result transmitted reference range : 0.0 - 10.0 /100 WBCs. The refer ence range was not u sed to interpret th is result as normal/abnormal . NRBC x10^3 (test code <0.01 See_Comment [Auto mated = 7777737974) message] The s ODECtem which generated this result transmitted reference range : 10*3/?L. The reference range was not used to interpret this result as normal/abnormal . SEG % (test code = 4 % 33-76 L 45432-0) LYMPH % (test code = 83 % 14-54 H 77642-2) MONO % (test code = 6 % 0-4 H 17695-3) EOS % (test code = 7 % 0-3 H 10172-1) ANC (test code = 0.01 10*3/uL 1.88-7.09 L 753-4) Lab Interpretation Abnormal (test code = 76982-6) [facility] METABOLIC PANEL (NA, K, CL, CO2, GLUCOSE, BUN, CREATININE, CA)2021-12-04 11:33:23 Test Item Value Reference Range Interpretation Comments NA (test code = 140 mmol/L 135-145 7533159613) K (test code = 3.3 mmol/L 3.5-5.0 L 1771850475) CL (test code = 112 mmol/L 98-108 H 3790351705) CO2 TOTAL (test code = 21 mmol/L 23-31 L 7950081376) AGAP (test code = 2-16 5161345417) BUN (test code = 45 mg/dL 7-23 H 1379538012) GLUCOSE (test code = 176 mg/dL 70-110 H 0155489052) CREATININE (test code = 1.48 mg/dL 0.50-1.04 H 1565121197) CALCIUM (test code = 5.1 mg/dL 8.6-10.6 LL 0493581991) eGFR (test code = mL/min/1.73m2 2239774541) FINA (test code = FINA) Association of [...] tests). Lab Interpretation Abnormal (test code = 31823-3) [facility] GLUCOSE (AUTOMATED)2021-12-04 09:39:15 Test Item Value Reference Range Interpretation Comments POCT GLU (test code = 0693926784) 175 mg/dL 70-110 H Lab Interpretation (test code = Abnormal 77298-1) [facility] GLUCOSE (AUTOMATED)2021-12-04 09:14:38 Test Item Value Reference Range Interpretation Comments POCT GLU (test code = 4859184940) 177 mg/dL 70-110 H Lab Interpretation (test code = Abnormal 91328-6) [facility] GLUCOSE (AUTOMATED)2021-12-04 06:26:04 Test Item Value Reference Range Interpretation Comments POCT GLU (test code = 3576119286) 214 mg/dL 70-110 H Lab Interpretation (test code = Abnormal 78923-0) [facility] GLUCOSE (AUTOMATED)2021-12-04 03:09:21 Test Item Value Reference Range Interpretation Comments POCT GLU (test code = 2216292319) 210 mg/dL 70-110 H Lab Interpretation (test code = Abnormal 58224-8) [facility] GLUCOSE (AUTOMATED)2021-12-03 22:02:35 Test Item Value Reference Range Interpretation Comments POCT GLU (test code = 2936177318) 222 mg/dL 70-110 H Lab Interpretation (test code = Abnormal 62556-3) [facility] GLUCOSE (AUTOMATED)2021-12-03 17:13:52 Test Item Value Reference Range Interpretation Comments POCT GLU (test code = 2754959175) 185 mg/dL 70-110 H Lab Interpretation (test code = Abnormal 88997-0) [facility] GLUCOSE (AUTOMATED)2021-12-03 15:33:09 Test Item Value Reference Range Interpretation Comments POCT GLU (test code = 2609395140) 187 mg/dL 70-110 H Lab Interpretation (test code = Abnormal 48914-7) [facility] (in units), 1 Units 2021-12-03 14:24:52 Test Item Value Reference Range Interpretation Comments Cross Match Result Compatible (test code = 4409) ISBT Blood Type Code (test code = 283449) Unit Blood Type (test O Pos code = 4410) Unit Number (test [id number] code = 4411) Blood Expiration Date & Time (test code = 433434) Status Information Issued (test code = 4412) Product Red Blood Cells Identification (test code = 4413) Product Code (test W9882S31 Performed at [facility] code = 4414) Laboratory Services - [facility] Blood [address] [place] [address]Klch Free: [phone] A No. [id number] [facility] GLUCOSE (AUTOMATED)2021-12-03 13:14:18 Test Item Value Reference Range Interpretation Comments POCT GLU (test code = 8379692798) 196 mg/dL 70-110 H Lab Interpretation (test code = Abnormal 12792-7) [facility] WITH [id number] 11:40:17 Test Item Value Reference Range Interpretation Comments WBC (test code = See_Comment LL [Automated 9690-2) message] The sy stem which generated this result transmitted reference range : 4.30 - 11.10 10*3/?L. The reference range was not used to interpret this result as normal/abnormal . RBC (test code = See_Comment L [Automated 999-8) message] The sy stem which generated this [...] RDW-SD (test code = 44.3 fL 39.0-49.9 79244-3) RDW-CV (test code = 13.2 % 12.0-15.5 788-0) PLT (test code = See_Comment LL [Automated 777-3) message] The sy stem which generated this result transmitted reference range : 166 - 358 10*3/ ?L. The reference r willem was not used to interpret this result as normal/abnormal . MPV (test code = 11.0 fL 9.5-12.9 41958-9) IPF % (test code = 2.5 % 1.3-7.7 Platelet count 0543415660) measured by fluorescence method. NRBC/100 WBC (test See_Comment [Automat ed code = 3101639041) message] The system which generated this result transmitted reference range : 0.0 - 10.0 /100 WBCs. The refer ence range was not u sed to interpret th is result as normal/abnormal . NRBC x10^3 (test code <0.01 See_Comment [Auto mated = 8085657319) message] The s ystem which generated this result transmitted reference range : 10*3/?L. The reference range was not used to interpret this result as normal/abnormal . SEG % (test code = 5 % 33-76 L 91615-9) LYMPH % (test code = 78 % 14-54 H 75268-8) EOS % (test code = 17 % 0-3 H 71260-1) ANC (test code = 0.03 10*3/uL 1.88-7.09 L 753-4) DOHLE BODIES (test Present A code = 7792-5) Lab Interpretation Abnormal (test code = 09052-9) [facility] METABOLIC PANEL (NA, K, CL, CO2, GLUCOSE, BUN, CREATININE, CA)2021-12-03 11:18:49 Test Item Value Reference Range Interpretation Comments NA (test code = 144 mmol/L 135-145 7141003094) K (test code = 3.5 mmol/L 3.5-5.0 1155737487) CL (test code = 116 mmol/L 98-108 H 5484861922) CO2 TOTAL (test code = 22 mmol/L 23-31 L 8111046848) AGAP (test code = 2-16 1057786559) BUN (test code = 54 mg/dL 7-23 H 0757919585) GLUCOSE (test code = 158 mg/dL 70-110 H 2655283098) CREATININE (test code = 1.60 mg/dL 0.50-1.04 H 6994706081) CALCIUM (test code = 6.1 mg/dL 8.6-10.6 L 3977564506) eGFR (test code = mL/min/1.73m2 4090252431) FINA (test code = FINA) Association of [...] tests). Lab Interpretation Abnormal (test code = 38108-7) [facility] Test Item Value Reference Range Interpretation Comments MAGNESIUM (test code = 1321627732) 2.3 mg/dL 1.7-2.4 Lab Interpretation (test code = Normal 12994-2) [facility] GLUCOSE (AUTOMATED)2021-12-03 10:31:14 Test Item Value Reference Range Interpretation Comments POCT GLU (test code = 6233083181) 167 mg/dL 70-110 H Lab Interpretation (test code = Abnormal 60245-1) [facility] GLUCOSE (AUTOMATED)2021-12-03 06:54:17 Test Item Value Reference Range Interpretation Comments POCT GLU (test code = 9419654647) 177 mg/dL 70-110 H Lab Interpretation (test code = Abnormal 41191-0) [facility] GLUCOSE (AUTOMATED)2021-12-03 04:53:06 Test Item Value Reference Range Interpretation Comments POCT GLU (test code = 4291126745) 182 mg/dL 70-110 H Lab Interpretation (test code = Abnormal 35442-1) [facility] GLUCOSE (AUTOMATED)2021-12-03 04:05:43 Test Item Value Reference Range Interpretation Comments POCT GLU (test code = 4858012664) 191 mg/dL 70-110 H Lab Interpretation (test code = Abnormal 72032-2) [facility] GLUCOSE (AUTOMATED)2021-12-03 03:01:07 Test Item Value Reference Range Interpretation Comments POCT GLU (test code = 6009214843) 209 mg/dL 70-110 H Lab Interpretation (test code = Abnormal 86087-1) [facility] GLUCOSE (AUTOMATED)2021-12-03 02:14:25 Test Item Value Reference Range Interpretation Comments POCT GLU (test code = 2170806407) 226 mg/dL 70-110 H Lab Interpretation (test code = Abnormal 99699-6) [facility] Metabolc Panel (Na, K, Cl, CO2, Glucose, BUN, Creatinine, Ca)2021-12-02 23:28:32 Test Item Value Reference Range Interpretation Comments NA (test code = 144 mmol/L 135-145 8748492037) K (test code = 3.8 mmol/L 3.5-5.0 9399123575) CL (test code = 114 mmol/L 98-108 H 4551288686) CO2 TOTAL (test code = 23 mmol/L 23-31 8955166699) AGAP (test code = 2-16 1233150439) BUN (test code = 66 mg/dL 7-23 H 5516771217) GLUCOSE (test code = 232 mg/dL 70-110 H 5436351813) CREATININE (test code = 1.77 mg/dL 0.50-1.04 H 7813746273) CALCIUM (test code = 6.1 mg/dL 8.6-10.6 L 1915840469) eGFR (test code = mL/min/1.73m2 1819296496) FINA (test code = FINA) Association of [...] tests). Lab Interpretation Abnormal (test code = 20890-3) [facility] GLUCOSE (AUTOMATED)2021-12-02 23:02:42 Test Item Value Reference Range Interpretation Comments POCT GLU (test code = 9221394981) 244 mg/dL 70-110 H Lab Interpretation (test code = Abnormal 81994-4) [facility] 22:40:23 Test Item Value Reference Range Interpretation Comments METHOTREX (test code 0.050 umol/L = 5449629606) FINA (test code = THERAPEUTIC RANGE = FINA) VARIABLE (DEPENDS ON TREATMENT PROTOCOL)TOXIC RANGE = GREATER THAN 10.00 UMOL/L @ 24 HRS ?GREATER THAN ?1.00 UMOL/L @ 48 HRS ?GREATER THAN ?0.10 UMOL/L @ 72 HRS Test developed and characteristics determined by [facility] Laboratory Services. [facility] GLUCOSE (AUTOMATED)2021-12-02 19:55:08 Test Item Value Reference Range Interpretation Comments POCT GLU (test code = 6806378375) 160 mg/dL 70-110 H Lab Interpretation (test code = Abnormal 82758-7) [facility] GLUCOSE (AUTOMATED)2021-12-02 19:08:13 Test Item Value Reference Range Interpretation Comments POCT GLU (test code = 6253847578) >600 70-110 HH Lab Interpretation (test code = Abnormal 16996-8) [facility] GLUCOSE (AUTOMATED)2021-12-02 19:08:13 Test Item Value Reference Range Interpretation Comments POCT GLU (test code = 4854805016) >600 70-110 HH Lab Interpretation (test code = Abnormal 43701-0) [facility] GLUCOSE (AUTOMATED)2021-12-02 19:08:08 Test Item Value Reference Range Interpretation Comments POCT GLU (test code = 1364323562) >600 70-110 HH Lab Interpretation (test code = Abnormal 14839-4) [facility] [id number] 18:54:48 Test Item Value Reference Range Interpretation Comments PTH-INTACT (test code = 30.2 pg/mL 12.0-88.0 8345486033) PTH-CA Interpretation Furthe r clinical (test code = 3824217642) zachary a needed for interpretation. CALCIUM (test code = 6.2 mg/dL 8.6-10.6 L 5479150027) Lab Interpretation (test Abnormal code = 77645-4) [facility] GLUCOSE (AUTOMATED)2021-12-02 18:28:22 Test Item Value Reference Range Interpretation Comments POCT GLU (test code = 4649280454) 176 mg/dL 70-110 H Lab Interpretation (test code = Abnormal 31747-5) [facility] GLUCOSE (AUTOMATED)2021-12-02 16:59:34 Test Item Value Reference Range Interpretation Comments POCT GLU (test code = 8111447181) 214 mg/dL 70-110 H Lab Interpretation (test code = Abnormal 70500-1) [facility]-REACTIVE [id number] 16:19:10 Test Item Value Reference Range Interpretation Comments CRP (test code = 6515237396) 17.1 mg/dL <0.8 H Lab Interpretation (test code = Abnormal 44452-6) [facility] GLUCOSE (AUTOMATED)2021-12-02 16:14:05 Test Item Value Reference Range Interpretation Comments POCT GLU (test code = 5841253099) 221 mg/dL 70-110 H Lab Interpretation (test code = Abnormal 51563-6) [facility] GLUCOSE (AUTOMATED)2021-12-02 15:23:01 Test Item Value Reference Range Interpretation Comments POCT GLU (test code = 5504223038) 209 mg/dL 70-110 H Lab Interpretation (test code = Abnormal 69593-6) [facility] Metabolic Panel (Na, K, Cl, CO2, Glucose, BUN, Creatinine, Ca)2021-12-02 14:42:22 Test Item Value Reference Range Interpretation Comments NA (test code = 144 mmol/L 135-145 4963627163) K (test code = 4.0 mmol/L 3.5-5.0 Slight 1094984278) hemolysis CL (test code = 115 mmol/L 98-108 H 5309475639) CO2 TOTAL (test code 25 mmol/L 23-31 = 5327574750) AGAP (test code = 2-16 5771036329) BUN (test code = 76 mg/dL 7-23 H Slight 0438407618) hemolysis GLUCOSE (test code = 225 mg/dL 70-110 H 4762189406) CREATININE (test code 1.96 mg/dL 0.50-1.04 H = 6808673612) CALCIUM (test code = 6.2 mg/dL 8.6-10.6 L 2759389703) eGFR (test code = mL/min/1.73m2 1426503815) FINA (test code = FINA) Association of [...] tests). Lab Interpretation Abnormal (test code = 11920-3) [facility] GLUCOSE (AUTOMATED)2021-12-02 14:10:31 Test Item Value Reference Range Interpretation Comments POCT GLU (test code = 8607034872) 239 mg/dL 70-110 H Lab Interpretation (test code = Abnormal 16804-7) [facility] [id number] 13:57:00 Test Item Value Reference Range Interpretation Comments HAPTOGLOB (test code = 0474254904) 219 mg/dL 16-200 H Lab Interpretation (test code = Abnormal 88074-3) [facility] GLUCOSE (AUTOMATED)2021-12-02 13:06:29 Test Item Value Reference Range Interpretation Comments POCT GLU (test code = 3948303688) 237 mg/dL 70-110 H Lab Interpretation (test code = Abnormal 68976-4) [facility] GLUCOSE (AUTOMATED)2021-12-02 12:14:49 Test Item Value Reference Range Interpretation Comments POCT GLU (test code = 3645079614) 235 mg/dL 70-110 H Lab Interpretation (test code = Abnormal 53460-7) [facility] METABOLIC PANEL (NA, K, CL, CO2, GLUCOSE, BUN, CREATININE, CA)2021-12-02 11:59:53 Test Item Value Reference Range Interpretation Comments NA (test code = 140 mmol/L 135-145 8879426159) K (test code = 3.7 mmol/L 3.5-5.0 7325476049) CL (test code = 113 mmol/L 98-108 H 7127386406) CO2 TOTAL (test code = 24 mmol/L 23-31 7333457809) AGAP (test code = 2-16 0070102496) BUN (test code = 79 mg/dL 7-23 H 4203809085) GLUCOSE (test code = 206 mg/dL 70-110 H 7062770305) CREATININE (test code = 2.02 mg/dL 0.50-1.04 H 8978172815) CALCIUM (test code = 6.0 mg/dL 8.6-10.6 L 2502490879) eGFR (test code = mL/min/1.73m2 5026109526) FINA (test code = FINA) Association of [...] tests). Lab Interpretation Abnormal (test code = 24028-2) [facility]21-[facility]-02 11:09:28 Test Item Value Reference Range Interpretation Comments POCT GLU (test code = 7980684710) 217 mg/dL 70-110 H Lab Interpretation (test code = Abnormal 74096-7) [facility] with [id number] 11:07:37 Test Item Value Reference Range Interpretation Comments WBC (test code = See_Comment LL [Automated 6790-2) message] The sy stem which generated this result transmitted reference range : 4.30 - 11.10 10*3/?L. The reference range was not used to interpret this result as normal/abnormal . RBC (test code = See_Comment L [Automated 009-8) message] The sy stem which generated this [...] RDW-SD (test code = 43.1 fL 39.0-49.9 16912-5) RDW-CV (test code = 13.0 % 12.0-15.5 788-0) PLT (test code = See_Comment LL [Automated 777-3) message] The sy stem which generated this result transmitted reference range : 166 - 358 10*3/ ?L. The reference r willem was not used to interpret this result as normal/abnormal . MPV (test code = 11.6 fL 9.5-12.9 84352-3) IPF % (test code = 3.8 % 1.3-7.7 Platelet count 5255296519) measured by fluorescence method. NRBC/100 WBC (test See_Comment [Automat ed code = 7806274349) message] The system which generated this result transmitted reference range : 0.0 - 10.0 /100 WBCs. The refer ence range was not u sed to interpret th is result as normal/abnormal . NRBC x10^3 (test code <0.01 See_Comment [Auto mated = 0745142601) message] The s ystem which generated this result transmitted reference range : 10*3/?L. The reference range was not used to interpret this result as normal/abnormal . SEG % (test code = 20 % 33-76 L 84044-8) LYMPH % (test code = 73 % 14-54 H 52094-0) MONO % (test code = 7 % 0-4 H 20325-2) ANC (test code = 0.07 10*3/uL 1.88-7.09 L 753-4) Lab Interpretation Abnormal (test code = 41432-9) [facility] GLUCOSE (AUTOMATED)2021-12-02 10:14:19 Test Item Value Reference Range Interpretation Comments POCT GLU (test code = 4340177306) 191 mg/dL 70-110 H Lab Interpretation (test code = Abnormal 12742-5) [facility]21-[facility]-02 09:13:29 Test Item Value Reference Range Interpretation Comments POCT GLU (test code = 2203792344) 165 mg/dL 70-110 H Lab Interpretation (test code = Abnormal 26244-9) [facility] Metabolic Panel (Na, K, Cl, CO2, Glucose, BUN, Creatinine, Ca)2021-12-02 09:04:15 Test Item Value Reference Range Interpretation Comments NA (test code = 143 mmol/L 135-145 7081497415) K (test code = 3.7 mmol/L 3.5-5.0 6301357595) CL (test code = 113 mmol/L 98-108 H 3909208518) CO2 TOTAL (test code = 24 mmol/L 23-31 1313448134) AGAP (test code = 2-16 4080079127) BUN (test code = 83 mg/dL 7-23 H 1186497945) GLUCOSE (test code = 121 mg/dL 70-110 H 1157800505) CREATININE (test code = 2.12 mg/dL 0.50-1.04 H 7056238011) CALCIUM (test code = 6.2 mg/dL 8.6-10.6 L 2524929591) eGFR (test code = mL/min/1.73m2 2817649444) FINA (test code = FINA) Association of [...] tests). Lab Interpretation Abnormal (test code = 20625-9) [facility] 09:04:15 Test Item Value Reference Range Interpretation Comments ALBUMIN (test code = 8954017919) 2.6 g/dL 3.5-5.0 L Lab Interpretation (test code = Abnormal 58512-1) [facility] 09:04:15 Test Item Value Reference Range Interpretation Comments MAGNESIUM (test code = 7261045938) 2.6 mg/dL 1.7-2.4 H Lab Interpretation (test code = Abnormal 86475-5) [facility] 09:04:15 Test Item Value Reference Range Interpretation Comments PHOSPHORUS (test code = 2546401722) 4.6 mg/dL 2.5-5.0 Lab Interpretation (test code = Normal 06646-7) [facility] (Na, K, Cl, CO2, Glucose, BUN, Creatinine, Ca)2021-12-02 08:25:17 Test Item Value Reference Range Interpretation Comments NA (test code = 143 mmol/L 135-145 7910100228) K (test code = 3.2 mmol/L 3.5-5.0 L 7793919351) CL (test code = 112 mmol/L 98-108 H 3211500351) CO2 TOTAL (test code = 22 mmol/L 23-31 L 4663056584) AGAP (test code = 2-16 3061672229) BUN (test code = 85 mg/dL 7-23 H 6634298157) GLUCOSE (test code = 113 mg/dL 70-110 H 0626122207) CREATININE (test code = 2.23 mg/dL 0.50-1.04 H 6620206508) CALCIUM (test code = 6.3 mg/dL 8.6-10.6 L 3037611014) eGFR (test code = mL/min/1.73m2 9006973692) FINA (test code = FINA) Association of [...] tests). Lab Interpretation Abnormal (test code = 54980-1) [facility] GLUCOSE (AUTOMATED)2021-12-02 08:06:22 Test Item Value Reference Range Interpretation Comments POCT GLU (test code = 9490113710) 125 mg/dL 70-110 H Lab Interpretation (test code = Abnormal 87918-7) [facility] GLUCOSE (AUTOMATED)2021-12-02 07:11:48 Test Item Value Reference Range Interpretation Comments POCT GLU (test code = 4614164977) 88 mg/dL 70-110 Lab Interpretation (test code = Normal 61936-4) [facility] GLUCOSE (AUTOMATED)2021-12-02 05:55:50 Test Item Value Reference Range Interpretation Comments POCT GLU (test code = 2087592971) 104 mg/dL 70-110 Lab Interpretation (test code = Normal 73894-7) [facility] GLUCOSE (AUTOMATED)2021-12-02 05:14:40 Test Item Value Reference Range Interpretation Comments POCT GLU (test code = 0400151433) 120 mg/dL 70-110 H Lab Interpretation (test code = Abnormal 43926-9) [facility] Plate[facility] (in units): 1 Units~Indication: 6) Other - (specify in comments); Special Requirements: Leukoreduced, Gnntteebxc5726-90-33 04:51:39 Test Item Value Reference Range Interpretation Comments Unit Blood Type (test A Pos code = 4410) ISBT Blood Type Code (test code = 162920) Unit Number (test code [id number] = 4411) Blood Expiration Date & Time (test code = 067551) Status Information Issued (test code = 4412) Product Identification Platelets (test code = 4413) Product Code (test L3661U00 Performed at [facility] code = 4414) Laboratory Services - [facility] Blood [address] [place] [address] [id number] Free: [phone] A No. [id number] [facility] GLUCOSE (AUTOMATED)2021-12-02 03:58:37 Test Item Value Reference Range Interpretation Comments POCT GLU (test code = 2588245470) 140 mg/dL 70-110 H Lab Interpretation (test code = Abnormal 33205-4) [facility] GLUCOSE (AUTOMATED)2021-12-02 03:08:37 Test Item Value Reference Range Interpretation Comments POCT GLU (test code = 7136907232) 178 mg/dL 70-110 H Lab Interpretation (test code = Abnormal 08121-0) [facility]ahydroxy-Ahhnkifd5112-02-32 02:57:55 Test Item Value Reference Range Interpretation Comments BOH (test code = 0.4 mmol/L 4333564910) FINA (test code = Normal Ranges: ? ? FINA) Nonfasting ? Less than 0.1 mmol/L ? ? Overnight Fast ? ? ? Less than 0.4 mmol/L ? ? Fasting (1-2 weeks) ?6-8 mmol/L Test developed and characteristics determined by [facility] Laboratory Services. [facility] Metabolic Panel (Na, K, Cl, CO2, Glucose, BUN, Creatinine, Ca)2021-12-02 02:48:36 Test Item Value Reference Range Interpretation Comments NA (test code = 140 mmol/L 135-145 6856753311) K (test code = 3.3 mmol/L 3.5-5.0 L 4858457032) CL (test code = 106 mmol/L 98-108 3768698021) CO2 TOTAL (test code = 24 mmol/L 23-31 0709062255) AGAP (test code = 2-16 7409812168) BUN (test code = 91 mg/dL 7-23 H 8326529644) GLUCOSE (test code = 185 mg/dL 70-110 H 0480627349) CREATININE (test code = 2.37 mg/dL 0.50-1.04 H 5848744301) CALCIUM (test code = 6.5 mg/dL 8.6-10.6 L 0154661610) eGFR (test code = mL/min/1.73m2 2892129026) FINA (test code = FINA) Association of [...] tests). Lab Interpretation Abnormal (test code = 61461-5) [facility] HospitalVITAMIN B12, [id number] 02:27:52 Test Item Value Reference Range Interpretation Comments VIT B12 (test code = 490 pg/mL 240-930 7525084995) FINA (test code = FINA) Biotin has been reported to cause a positive bias, interpret results relative to patient's use of biotin. Lab Interpretation (test Normal code = 85652-9) [facility]2021-12-02 02:17:56 Test Item Value Reference Range Interpretation Comments POCT GLU (test code = 5124582099) 211 mg/dL 70-110 H Lab Interpretation (test code = Abnormal 05506-1) [facility] HospitalHEPATITIS B SURFACE [id number] 01:27:48 Test Item Value Reference Range Interpretation Comments HBsAB (test code = Negative 9027630196) HBsAb mIU/mL Semi-Quantitative (test code = 2155949221) FINA (test code = Interpretation: FINA) ?Hepatitis B Surface Antibody ? Negative - Patient is considered to be not immune to infection with HBV. ? ? Positive - Anti-HBs detected at greater than or equal to 12 mIU/mL. ?Patient is considered to be immune to infection with HBV. ? [facility] HospitalHBC ANTIBODY (IGM & IGG)2021-12-02 01:27:48 Test Item Value Reference Range Interpretation Comments HBC (test code = 6259002217) Negative HBC Semi-Quantitative (test code = 0912062956) [facility] HospitalHCV [id number] 01:27:48 Test Item Value Reference Range Interpretation Comments HCV Ab (test code = 15604-5) Negative HCV Semi-Quantitative (test code = 40950-1) [facility] HospitalABORH Confirmation (Lab Only)2021-12-02 01:06:47 Test Item Value Reference Range Interpretation Comments ABO & RH (test code O Positive Performe d at [facility] = 20) Laboratory Serv [facility] Blood Bank[address] [place] [address] [id number] Free: [phone] A No. [id number] [facility])2021-12-02 01:05:22 Test Item Value Reference Range Interpretation Comments POCT GLU (test code = 9476667746) 269 mg/dL 70-110 H Lab Interpretation (test code = Abnormal 34744-1) [facility] HospitalHIV 1/2 AG-AB WITH [id number] 00:39:06 Test Item Value Reference Range Interpretation Comments HIV Negative Negative Semi-quantitative (test code = 69349-0) FINA (test code = Non-reactive for HIV-1 FINA) antigen and HIV-1/HIV-2 antibodies. ?No laboratory evidence of HIV infection. ?Repeat in 2-4 weeks if acute HIV infection is suspected. [facility] HospitalHEPATITIS B SURFACE [id number] 00:29:45 Test Item Value Reference Range Interpretation Comments HBsAg Semi-Quantitative (test code = Negative Negative 5195-3) [facility] HospitalType and Screen - ONCE [id number] 00:19:48 Test Item Value Reference Range Interpretation Comments ABO & RH (test code O Positive Performe d at [facility] = 20) Laboratory [facility] Blood Bank[address] [place] [address] [id number] Free: [phone] A No. [id number] IAT (test code = Negative Performed a t [facility] 1185) Laboratory [facility] Blood Bank[address] [place] [address] 61494Whfn Free: [phone] A No. [id number] [facility] (Na, K, Cl, CO2, Glucose, BUN, Creatinine, Ca)2021-12-02 00:10:04 Test Item Value Reference Range Interpretation Comments NA (test code = 138 mmol/L 135-145 9324949678) K (test code = 3.2 mmol/L 3.5-5.0 L 2499945849) CL (test code = 103 mmol/L 98-108 2270896228) CO2 TOTAL (test code = 24 mmol/L 23-31 9447640220) AGAP (test code = 2-16 0533293246) BUN (test code = 93 mg/dL 7-23 H 4312323414) GLUCOSE (test code = 355 mg/dL 70-110 H 8237286577) CREATININE (test code = 2.56 mg/dL 0.50-1.04 H 0802797244) CALCIUM (test code = 6.6 mg/dL 8.6-10.6 L 1265214644) eGFR (test code = mL/min/1.73m2 2479945672) FINA (test code = FINA) Association of [...] tests). Lab Interpretation Abnormal (test code = 15368-9) [facility] GLUCOSE (AUTOMATED)2021-12-02 00:05:47 Test Item Value Reference Range Interpretation Comments POCT GLU (test code = 5901273102) 357 mg/dL 70-110 H Lab Interpretation (test code = Abnormal 53850-2) [facility] GLUCOSE (AUTOMATED)2021-12-01 23:03:55 Test Item Value Reference Range Interpretation Comments POCT GLU (test code = 4454008092) 435 mg/dL 70-110 H Lab Interpretation (test code = Abnormal 88444-8) [facility] GLUCOSE (AUTOMATED)2021-12-01 22:11:05 Test Item Value Reference Range Interpretation Comments POCT GLU (test code = 5464359952) 500 mg/dL 70-110 HH Lab Interpretation (test code = Abnormal 06503-4) [facility] HospitalFERRITIN [id number] 21:57:21 Test Item Value Reference Range Interpretation Comments FERRITIN (test code = 460.0 ng/mL 11.0-264.0 H 8086100032) FINA (test code = FINA) Biotin has been reported to cause a negative bias, interpret results relative to patient's use of biotin. Lab Interpretation (test Abnormal code = 05611-7) [facility] HospitalIRON [id number] 21:47:56 Test Item Value Reference Range Interpretation Comments IRON (test code = 157 ug/dL 50-160 Slight hem olysis 2629371470) TIBC (test code = 249 ug/dL 250-410 L 7995608139) % FE SAT (test code = 63 % 20-50 H 2629367426) Lab Interpretation (test Abnormal code = 66430-1) [facility] HospitalHEPATIC FUNCTION PANEL (55577) (ALB,T.PRO,BILI T,BU/BC,ALT,AST,ALK PHOS)2021-12-01 21:18:48 Test Item Value Reference Range Interpretation Comments TOTAL BILI (test code = 3053316027) 1.0 mg/dL 0.1-1.1 BILI UNCON (test code = 2222467313) 0.3 mg/dL 0.1-1.1 BILI CONJ (test code = 6364483423) 0.0 mg/dL 0.0-0.3 T PROTEIN (test code = 0246484394) 6.1 g/dL 6.3-8.2 L ALBUMIN (test code = 4294989520) 3.1 g/dL 3.5-5.0 L ALK PHOS (test code = 7183507959) 82 U/L 34-122 ALTv (test code = 1742-6) 20 U/L 5-35 AST(SGOT) (test code = 0371237970) 29 U/L 13-40 Lab Interpretation (test code = Abnormal 88138-6) [facility] HospitalURIC [id number] 21:18:48 Test Item Value Reference Range Interpretation Comments URIC ACID (test code = 6109805675) 9.9 mg/dL 2.9-6.0 H Lab Interpretation (test code = Abnormal 50648-7) [facility] HospitalOsmolality [id number] 21:11:01 Test Item Value Reference Range Interpretation Comments OSMOLALITY (test code = See_Comment HH [Au tomated message] 2692-2) The system [employer] generated this result transmitted ref erence range: 278 - 30 5 mOsm/kg. The reference range was not used to int erpret this result as normal/abnormal . Lab Interpretation (test Abnormal code = 00243-5) [facility] METABOLIC PANEL (NA, K, CL, CO2, GLUCOSE, BUN, CREATININE, CA)2021-12-01 21:10:25 Test Item Value Reference Range Interpretation Comments NA (test code = 132 mmol/L 135-145 L 7025973519) K (test code = 3.9 mmol/L 3.5-5.0 2492971930) CL (test code = 97 mmol/L 98-108 L 5405021661) CO2 TOTAL (test code = 21 mmol/L 23-31 L 9467400464) AGAP (test code = 2-16 1374646085) BUN (test code = 101 mg/dL 7-23 H 1753854068) GLUCOSE (test code = 726 mg/dL 70-110 7282219310) CREATININE (test code = 2.70 mg/dL 0.50-1.04 H 5835267188) CALCIUM (test code = 6.6 mg/dL 8.6-10.6 L 8398075005) eGFR (test code = mL/min/1.73m2 3898173928) FINA (test code = FINA) Association of [...] tests). Lab Interpretation Abnormal (test code = 02586-4) [facility] HospitalIRON [id number] 20:59:43 Test Item Value Reference Range Interpretation Comments IRON (test code = 0300449944) 143 ug/dL 50-160 TIBC (test code = 3776479687) 251 ug/dL 250-410 % FE SAT (test code = 7688406227) 57 % 20-50 H Lab Interpretation (test code = Abnormal 65092-1) [facility] HospitalTOTAL IRON BINDING [id number] 20:59:43 Test Item Value Reference Range Interpretation Comments TIBC (test code = 2877690356) 251 ug/dL 250-410 Lab Interpretation (test code = Normal 44869-2) [facility] HospitalGlycosylated Hemoglobin (A1C)2021-12-01 20:56:03 Test Item Value Reference Range Interpretation Comments HGB A1C (test code = 11.4 % 4.0-5.7 H 4548-4) FINA (test code = FINA) Reference RangesNormal: <5.7%Prediabetes: 5.7 - 6.4%Diabetes: > 6.5% Lab Interpretation (test Abnormal code = 10806-4) [facility] HospitalMagnesium [id number] 20:47:01 Test Item Value Reference Range Interpretation Comments MAGNESIUM (test code = 3255723922) 2.5 mg/dL 1.7-2.4 H Lab Interpretation (test code = Abnormal 64456-9) [facility] HospitalPhosphorus [id number] 20:47:01 Test Item Value Reference Range Interpretation Comments PHOSPHORUS (test code = 3523348621) 7.4 mg/dL 2.5-5.0 H Lab Interpretation (test code = Abnormal 42878-4) [facility] HospitalLACTATE [id number] 20:24:15 Test Item Value Reference Range Interpretation Comments LDH (test code = 5440085339) 440 U/L 300-600 Lab Interpretation (test code = Normal 35364-2) [facility] HospitalBETA [id number] 20:23:15 Test Item Value Reference Range Interpretation Comments BOH (test code = 2.4 mmol/L 8890738562) FINA (test code = Normal Ranges: ? ? FINA) Nonfasting ? Less than 0.1 mmol/L ? ? Overnight Fast ? ? ? Less than 0.4 mmol/L ? ? Fasting (1-2 weeks) ?6-8 mmol/L Test developed and characteristics determined by [facility] Laboratory Services. [facility] HospitalRETICULOCYTES [id number] 19:22:07 Test Item Value Reference Range Interpretation Comments RETIC Count Automated 0.39 % 0.51-1.90 L (test code = 6110573407) RETIC Absolute Count <0.0100 See_Comment L [Autom ated message] (test code = 3297283773) The system which generated this result transmitted ref erence range: 0.0230 - 0.0950 10*6/?L. The reference range was not used to int erpret this result as normal/abnormal . IRF % (test code = 4.90 % 2.10-12.60 3259706479) RETIC-HE (test code = 42.9 pg 28.1-35.8 H 9050889246) Lab Interpretation (test Abnormal code = 55802-9) [facility] Arterial Blood Gas.2021-12-01 17:37:26 Test Item Value Reference Range Interpretation Comments PH (test code = 2) 7.35-7.45 PCO2 (test code = See_Comment [Automate d message] 2314600401) The system [employer] generated this result transmitted ref erence range: 35 - 45 mmHg. The reference r willem was not used to interpret this result as normal/abnor mal. PO2 (test code = See_Comment L [Automated message] 7561003127) The system [employer] generated this result transmitted ref erence range: 80 - 100 mmHg. The reference r willem was not used to interpret this result as normal/abnor mal. HCO3 (test code = See_Comment L [Automate d message] 2458916397) The system [employer] generated this result transmitted ref erence range: 22 - 26 mEq/L. The reference r willem was not used to interpret this result as normal/abnor mal. BE (test code = See_Comment L [Automated message] 0793200410) The system [employer] generated this result transmitted ref erence range: -3.0 - 3 .0 mEq/L. The refe rence range was not u sed to interpret this result as normal/abnor mal. Lab Interpretation (test Abnormal code = 45178-6) [facility] HospitalBASIC METABOLIC PANEL (NA, K, CL, CO2, GLUCOSE, BUN, CREATININE, CA)2021-12-01 15:00:17 Test Item Value Reference Range Interpretation Comments NA (test code = 132 mmol/L 135-145 L 9392758867) K (test code = 4.5 mmol/L 3.5-5.0 8118025419) CL (test code = 94 mmol/L 98-108 L 6487407408) CO2 TOTAL (test code = 20 mmol/L 23-31 L 6339875774) AGAP (test code = 2-16 H 0992697650) BUN (test code = 101 mg/dL 7-23 H 6861809496) GLUCOSE (test code = 671 mg/dL 70-110 HH 9276809602) CREATININE (test code = 2.83 mg/dL 0.50-1.04 H 0607852304) CALCIUM (test code = 6.9 mg/dL 8.6-10.6 L 7619864405) eGFR (test code = mL/min/1.73m2 7615908148) FINA (test code = FINA) Association of [...] tests). Lab Interpretation Abnormal (test code = 94855-7) [facility] HospitalGlycosylated Hemoglobin (A1C)2021-12-01 13:48:59 Test Item Value Reference Range Interpretation Comments HGB A1C (test code = 11.8 % 4.0-5.7 H 4548-4) FINA (test code = FINA) Reference RangesNormal: <5.7%Prediabetes: 5.7 - 6.4%Diabetes: > 6.5% Lab Interpretation (test Abnormal code = 49551-2) [facility] WITHOUT [id number] 11:58:50 Test Item Value Reference Range Interpretation Comments WBC (test code = See_Comment LL [Automated message] 6690-2) The system [employer] generated this result transmitted ref erence range: 4.30 - 1 1.10 10*3/?L. The reference range was not used to int erpret this result as normal/abnormal . RBC (test code = 789-8) See_Comment L [Au tomated message] The system [employer] generated this result transmitted ref erence range: [...] See_Comment LL [Au tomated message] The system [employer] generated this result transmitted ref erence range: 166 - 35 8 10*3/?L. The reference range was not used to int erpret this result as normal/abnormal . MPV (test code = Not Measure d 08668-8) RDW-CV (test code = 13.3 % 12.0-15.5 788-0) RDW-SD (test code = 45.8 fL 39.0-49.9 91038-9) NRBC x10^3 (test code = <0.01 See_Comment [Au tomated message] 0054060935) The system [employer] generated this result transmitted ref erence range: 10*3/?L. The reference range was not used to int erpret this result as normal/abnormal . NRBC/100 WBC (test code See_Comment [Au tomated message] = 8938675997) The system [facility] generated this result transmitted ref erence range: 0.0 - 10 .0 /100 WBCs. The reference range was not used to int erpret this result as normal/abnormal . IPF % (test code = 8.9 % 1.3-7.7 H Platelet count 3564307700) measured by fluorescence me thod. Lab Interpretation Abnormal (test code = 59284-7) [facility] HospitalProthrombin Time / [id number] 11:29:17 Test Item Value Reference Range Interpretation Comments PROTIME PATIENT (test See_Comment [Auto mated message] code = 5964-2) The system [facility] generated this result transmitted ref erence range: 10.1 - 1 2.6 Seconds. The re ference range was not u sed to interpret this result as normal/abnor mal. INR (test code = 6301-6) Nor mal INR <1.1; Warfarin Therap eutic range 2.0 to 3. 0 or 2.5 to 3.5, dep ending upon the indica tions. Lab Interpretation (test Normal code = 24771-6) [facility] HospitalaPTT2022-06-22 11:29:17 Test Item Value Reference Range Interpretation Comments APTT Patient (test code = See_Comment [ Automated message] 3173-2) The system [facility] generated this result transmitted ref erence range: 26 - 36 Seconds. The re ference range was not u sed to interpret this result as normal/abnor mal. Lab Interpretation (test Normal code = 49741-3) [facility]"
[2022-07-21 16:39] LABS: Absolute Lymphocytes (CBC) 0.5 K/uL (0.7-4.9); Hematocrit 30.8 % (36.0-45.0); Lymphocytes % 7.6 % (15.3-44.8); MPV 8.9 fL (7.6-11.3); RBC Red Blood Cell Count 3.08 M/uL (3.86-4.86)
--- NOTE | 2022-07-21 16:51 | RAD REPORT ---
EXAM DESCRIPTION: RAD - Chest Single View - 07/21/2022 4:44 pm CLINICAL HISTORY: edema Chest pain. COMPARISON: Chest Single View dated 06/25/2022; Chest Single View dated 01/02/2022; Chest Pa And Lat ( 2 Views) dated 10/13/2020; Abdomen Pelvis Scan US dated 05/31/2022 FINDINGS: Portable technique limits examination quality. Mild interstitial pulmonary edema. The heart is mildly enlarged in size. No displaced fractures. IMPRESSION: Mild CHF.
[2022-07-21 16:58] LABS: Albumin 2.9 g/dL (3.4-5.0); Bilirubin Total 0.3 mg/dL (0.2-1.0); Potassium 4.1 mmol/L (3.5-5.1); Protein, Total 6.3 g/dL (6.4-8.2); Troponin High Sensitivity 21.9 pg/mL (<58.9)
[2022-07-21 17:19] LABS: SARS-COV-2 RT PCR NEGATIVE (NEGATIVE)
[2022-07-21] MEDS ORDERED: FUROSEMIDE 40 MG/4 ML VIAL ONE (17:32)
--- NOTE | 2022-07-21 18:29 | EDPHYS ---
Physician Documentation [facility] Name: Gena Feng Age: 62 yrs Sex: Female : 1960 Arrival Date: 07/21/2022 Time: 15:09 Bed 5 Private MD: Nic Burnett ED Physician Andrea Sanders HPI: 07/21 17:36 This 62 yrs old Female presents to ER via Wheelchair with complaints of rt swelling all over. 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 She currently takes 40 mg of Lasix 3 times a day. She was sent to the ED from her tissue recovery technician for edema that has been progressively worsening over the past week. The patient does report shortness of breath, worse with exertion. She denies chest pain, acute complaints. She was sent to the ED by her tissue recovery technician for diuresis, admission to the hospital. Symptoms are moderate in severity, no other aggravating or alleviating factors.. Historical: - Allergies: 15:30 Codeine; mb9 15:30 Sulfa (Sulfonamide Antibiotics); mb9 - Home Meds: 15:30 amlodipine 2.5 mg tab 1 tab once daily [Active]; calcitriol Oral MWF [Active]; mb9 calcitriol 0.5 mcg Oral cap 1 cap once daily [Active]; Detrol LA 4 mg Oral cp24 1 cap once daily [Active]; doxazosin 1 mg Oral tab 1 tab twice a day [Active]; doxepin 10 mg Oral cap nightly [Active]; enalapril maleate 20 mg Oral tab 1 tab once daily [Active]; fenofibrate 54 mg Oral tab 1 tab once daily [Active]; Fish Oil Oral daily [Active]; folic acid 1 mg Oral tab 1 tab once daily [Active]; furosemide 40 mg Oral tab MWF only [Active]; hydralazine 50 mg Oral tab 1 tab three times a day [Active]; hydrochlorothiazide 25 mg Oral tab 1 tab once daily [Active]; hydroxychloroquine 200 mg Oral tab 1 tab once daily [Active]; Levemir U-100 Insulin 100 unit/mL subcutaneous soln 40 unit daily [Active]; levothyroxine 150 mcg tab 1 tab once daily [Active]; Nuretin 500-100 mg Oral cap daily [Active]; methotrexate sodium 2.5 mg Oral tab 1 tab every 12 hours [Active]; magnesium oxide 400 mg magnesium Oral tab daily [Active]; - PMHx: 15:30 Hypothyroidism; Hypertensive disorder; Rheumatoid Arthritis; diabetes mellitus; mb9 - Immunization history:: Adult Immunizations up to date. - Social history:: Smoking status: Patient denies any tobacco usage or history of. - Family history:: not pertinent. ROS: 17:36 Constitutional: Negative for fever, chills, and weight loss, Eyes: Negative for injury, rt pain, redness, and discharge, Abdomen/GI: Negative for abdominal pain, nausea, vomiting, diarrhea, and constipation, MS/Extremity: Negative for injury and deformity, Skin: Negative for injury, rash, and discoloration, Neuro: Negative for headache, weakness, numbness, tingling, and seizure, Psych: Negative for depression, anxiety, suicide ideation, homicidal ideation, and hallucinations. 17:36 Cardiovascular: Positive for edema, Negative for chest pain. 17:36 Respiratory: Positive for cough, shortness of breath, wheezing. Exam: 17:36 Constitutional: This is a well developed, well nourished patient who is awake, alert, rt and in no acute distress. Head/Face: Normocephalic, atraumatic. Chest/axilla: Normal chest wall appearance and motion. Nontender with no deformity. No lesions are appreciated. Cardiovascular: Regular rate and rhythm with a normal S1 and S2. No gallops, murmurs, or rubs. Normal PMI, no JVD. No pulse deficits. Skin: Warm, dry with normal turgor. Normal color with no rashes, no lesions, and no evidence of cellulitis. Neuro: Awake and alert, GCS 15, oriented to person, place, time, and situation. Cranial nerves II-XII grossly intact. Motor strength 5/5 in all extremities. Sensory grossly intact. Cerebellar exam normal. Normal gait. Psych: Awake, alert, with orientation to person, place and time. Behavior, mood, and affect are within normal limits. 17:36 ECG was reviewed by the Attending Physician. 17:36 Respiratory: Wheezes heard on all lung bradshaw, no respiratory distress. 17:36 Abdomen/GI: Edema to the abdominal wall, no tenderness. 17:36 Musculoskeletal/extremity: 4+ pitting bilateral lower extremity edema. Vital Signs: 15:24 BP 132 / 62; Pulse 69; Resp 22; Temp 98.2; Pulse Ox 99% on R/A; Weight 111.13 kg (R); mb9 Height 5 ft. 2 in. (157.48 cm) (R); Pain 5/10; 17:37 BP 162 / 58; Pulse 65; Pulse Ox 96% on R/A; ap3 19:00 BP 158 / 52; Pulse 70; Resp 16; Pulse Ox 99% on R/A; jb4 20:38 BP 145 / 96; Pulse 73; Resp 17; Pulse Ox 96% on R/A; jb4 15:24 Body Mass Index 44.81 (111.13 kg, 157.48 cm) mb9 MDM: 16:06 Patient medically screened. rt 18:28 Differential Diagnosis CHF, renal failure, pulmonary edema, anasarca. Data reviewed: rt vital signs, nurses notes, lab test result(s), EKG, radiologic studies. Consideration of Admission/Observation Patient was admitted/placed on observation. Management of patient was discussed with the following: Hospitalist: Agrees to admit. Education Officer: Discussed with the patient's tissue recovery technician who recommends admission, diuresis. I considered the following discharge prescriptions or medication management in the emergency department Medications were administered in the Emergency Department. See MAR. Independent interpretation of the following test(s) in the Emergency Department EKG: See my EKG interpretation above X-Ray: My interpretation is Pulmonary edema seen on chest x-ray. Test considered but Not performed: CT: Known CKD, imaging not indicated. Care significantly affected by the following chronic conditions: Diabetes, Chronic Kidney Disease. Counseling: I had a detailed discussion with the patient and/or guardian regarding: the historical points, exam findings, and any diagnostic results supporting the discharge/admit diagnosis, lab results, radiology results, the need for further work-up and treatment in the hospital. Response to treatment: There is no appreciated change of the patient's symptoms at this time. 07/21 15:58 Order name: CBC with Diff; Complete Time: 16:58 rt 07/21 15:58 Order name: CMP; Complete Time: 17:20 rt 07/21 15:58 Order name: Troponin High Sensitivity; Complete Time: 17:20 rt 07/21 15:58 Order name: BNP; Complete Time: 17:20 rt 07/21 15:58 Order name: Chest Single View XRAY; Complete Time: 16:58 rt 07/21 16:11 Order name: COVID-19/FLU A+B; Complete Time: 17:20 iw 07/21 15:58 Order name: EKG; Complete Time: 16:00 rt 07/21 15:58 Order name: EKG - Nurse/Tech; Complete Time: 16:00 rt EC:36 Rate is 68 beats/min. Rhythm is regular, Normal Sinus Rhythm with No ectopy. QRS [place] rt is Normal. MS interval is normal. QRS interval is normal. QT interval is normal at 495 msec. No Q waves. T waves are Normal. No ST changes noted. Interpreted by me. Administered Medications: 17:36 Drug: Lasix (furosemide) 40 mg Route: IVP; Site: right antecubital; ap3 Disposition Summary: 07/21/22 18:28 Hospitalization Ordered Hospitalization Status: Observation rt Provider: Nicho Macias rt Location: Telemetry/MedSurg (observation) rt Condition: Stable rt Problem: an acute exacerbation rt Symptoms: are unchanged rt Bed/Room Type: Standard rt Room Assignment: 414(07/21/22 20:17) mw Diagnosis - Anasarca rt Forms: - Medication Reconciliation Form rt - SBAR form rt Signatures: Dispatcher [employer] EDMS Maxine Anaya RN RN mw Prokisch, Amanda, RN RN ap3 Halle Irwin RN RN [email or web address] Andrea Sanders MD MD rt Corrections: (The following items were deleted from the chart) 20:17 18:28 rt mw
--- NOTE | 2022-07-21 18:29 | ER ---
Nurse's Notes [facility] Name: Gena Feng Age: 62 yrs Sex: Female : 1960 Arrival Date: 07/21/2022 Time: 15:09 Bed 5 Private MD: Nic Burnett Diagnosis: Anasarca Presentation: 07/21 15:24 Chief complaint: Patient states: "My whole body started swelling on June 02 and mb9 ever since it's getting worse. I have trouble breathing when I walk short distance. My praimary care Dr. Loaiza told me that I need to be admitted for fluid overload". Coronavirus screen: Vaccine status: Patient reports receiving the 2nd dose of the covid vaccine. Ebola Screen: No symptoms or risks identified at this time. Initial Sepsis Screen: Does the patient meet any 2 criteria? No. Patient's initial sepsis screen is negative. Does the patient have a suspected source of infection? No. Patient's initial sepsis screen is negative. Risk Assessment: Do you want to hurt yourself or someone else? Patient reports no desire to harm self or others. Onset of symptoms was June 02, 2022. 15:24 Method Of Arrival: Wheelchair mb9 15:24 Acuity: AMAYA 3 mb9 Triage Assessment: 17:36 General: Appears in no apparent distress. comfortable, Behavior is calm, cooperative. ap3 Pain: Denies pain. Neuro: Level of Consciousness is awake, alert, obeys commands, Oriented to person, place, time, situation. Cardiovascular: Patient's skin is warm and dry. Respiratory: Reports shortness of breath on exertion Airway is patent Respiratory effort is even, unlabored, Respiratory pattern is regular, symmetrical. Historical: - Allergies: 15:30 Codeine; mb9 15:30 Sulfa (Sulfonamide Antibiotics); mb9 - Home Meds: 15:30 amlodipine 2.5 mg tab 1 tab once daily [Active]; calcitriol Oral MWF [Active]; mb9 calcitriol 0.5 mcg Oral cap 1 cap once daily [Active]; Detrol LA 4 mg Oral cp24 1 cap once daily [Active]; doxazosin 1 mg Oral tab 1 tab twice a day [Active]; doxepin 10 mg Oral cap nightly [Active]; enalapril maleate 20 mg Oral tab 1 tab once daily [Active]; fenofibrate 54 mg Oral tab 1 tab once daily [Active]; Fish Oil Oral daily [Active]; folic acid 1 mg Oral tab 1 tab once daily [Active]; furosemide 40 mg Oral tab MWF only [Active]; hydralazine 50 mg Oral tab 1 tab three times a day [Active]; hydrochlorothiazide 25 mg Oral tab 1 tab once daily [Active]; hydroxychloroquine 200 mg Oral tab 1 tab once daily [Active]; Levemir U-100 Insulin 100 unit/mL subcutaneous soln 40 unit daily [Active]; levothyroxine 150 mcg tab 1 tab once daily [Active]; Nuretin 500-100 mg Oral cap daily [Active]; methotrexate sodium 2.5 mg Oral tab 1 tab every 12 hours [Active]; magnesium oxide 400 mg magnesium Oral tab daily [Active]; - PMHx: 15:30 Hypothyroidism; Hypertensive disorder; Rheumatoid Arthritis; diabetes mellitus; mb9 - Immunization history:: Adult Immunizations up to date. - Social history:: Smoking status: Patient denies any tobacco usage or history of. - Family history:: not pertinent. Screenin:43 [facility] ED Fall Risk Assessment (Adult) History of falling in the last 3 months, mb9 including since admission No falls in past 3 months (0 pts) Confusion or Disorientation No (0 pts) Intoxicated or Sedated No (0 pts) Impaired Gait Yes (1 pt) Mobility Assist Device Used Yes (1 pt) Altered Elimination No (0 pt) Score/Fall Risk Level 0 - 2 = Low Risk Oriented to surroundings, Maintained a safe environment, Educated pt \\T\\ family on fall prevention, incl call for assistance when getting out of bed. Abuse screen: Denies threats or abuse. Nutritional screening: No deficits noted. Tuberculosis screening: No symptoms or risk factors identified. Assessment: 15:25 Reassessment: pt updated about wait time. Warm blanket given to pt. mb9 18:34 Reassessment: Assisted pt to bedside commode; pt stated seat of bedside commode pinched vg1 back of thighs. Pt appears to have redness to back of thighs. Asked pt if was ok, pt stated "im fine it just hurts" Provider notified. 19:30 Reassessment: Patient appears in no apparent distress at this time. Patient and/or jb4 family updated on plan of care and expected duration. Pain level reassessed. Patient is alert, oriented x 3, equal unlabored respirations, skin warm/dry/pink. 20:27 Reassessment: Patient appears in no apparent distress at this time. Patient and/or jb4 family updated on plan of care and expected duration. Pain level reassessed. Patient is alert, oriented x 3, equal unlabored respirations, skin warm/dry/pink. Vital Signs: 15:24 BP 132 / 62; Pulse 69; Resp 22; Temp 98.2; Pulse Ox 99% on R/A; Weight 111.13 kg (R); mb9 Height 5 ft. 2 in. (157.48 cm) (R); Pain 5/10; 17:37 BP 162 / 58; Pulse 65; Pulse Ox 96% on R/A; ap3 19:00 BP 158 / 52; Pulse 70; Resp 16; Pulse Ox 99% on R/A; jb4 20:38 BP 145 / 96; Pulse 73; Resp 17; Pulse Ox 96% on R/A; jb4 15:24 Body Mass Index 44.81 (111.13 kg, 157.48 cm) mb9 ED Course: 15:09 Patient arrived in ED. am2 15:09 Nic Burnett MD is Private Physician. am2 15:24 Arm band placed on. mb9 15:30 Triage completed. mb9 15:33 Andrea Sanders MD is Attending Physician. rt 15:36 Denise Walters, YANI is Primary Nurse. ap3 15:43 Placed in gown. Bed in low position. Call light in reach. Side rails up X 1. Client mb9 placed on continuous cardiac and pulse oximetry monitoring. NIBP monitoring applied. proj engineer on. Door closed. Noise minimized. Warm blanket given. 16:00 Initial lab(s) drawn, by me, sent to lab. Inserted saline lock: 20 gauge in right kj1 antecubital area, using aseptic technique. Blood collected. 16:05 ED physician to see patient. ap3 16:34 COVID-19/FLU A+B Sent. iw 16:46 Chest Single View XRAY In Process Unspecified. EDMS 18:27 Nicho Macias is Hospitalizing Provider. rt 20:58 No provider procedures requiring assistance completed. Patient admitted, IV remains in vc1 place. Administered Medications: 17:36 Drug: Lasix (furosemide) 40 mg Route: IVP; Site: right antecubital; ap3 Medication: 15:44 VIS not applicable for this client. mb9 Outcome: 18:28 Decision to Hospitalize by Provider. rt 20:59 Admitted to Med/surg via wheelchair, room 414. vc1 20:59 Condition: good 20:59 Instructed on the need for admit. 20:59 Patient left the ED. vc1 Signatures: Dispatcher [employer] EDMS Trena Ferreira, RN RN iw Jordy Cutler RN RN jb4 Denise Barth amDenise Murillo RN RN ap3 Ally Montanez kj1 Arti Pinedo RN RN [email or web address] Angelica Hart RN RN vc1 Halle Irwin RN RN mb9 Andrea Sanders MD MD rt Corrections: (The following items were deleted from the chart) 15:30 15:24 Chief complaint: Patient states: "My whole body started swelling on June 02 mb9 and ever since it's getting worse. I have trouble breathing when I walk short distance" mb9
--- NOTE | 2022-07-21 19:07 | P.HP ---
Certification for Inpatient Patient admitted to: Inpatient With expected LOS: <2 Midnights Patient will require the following post-hospital care: None Practitioner: I am a practitioner with admitting privileges, knowledge of patient current condition, hospital course, and medical plan of care. Services: Services provided to patient in accordance with Admission requirements found in Title 42 Section 412.3 of the Code of Federal Regulations Patient History Date of Service: 07/21/22 Primary Care Provider: Fadia Reason for admission: Anasarca History of Present Illness: Patient is a 62 year old female with past medical history of hypertension, insulin dependent type 2 diabetes, hypothyroidism, RA, and focal segmental glomerulosclerosis who presented to the emergency department with complaints of swelling all over. Patient reports that she has had increasing swelling since the end of May. She is currently prescribed 40 mg PO lasix twice a week. She saw her PCP today who sent her to the ED for further evaluation. She was noted to have 4+ pitting edema to bilateral lower extremities. Her labs are significant for hgb 10.5, hematocrit 30.8, BUN 58, Cr 2.39, BNP 1161. Chest xray showed mild CHF. She received 40 mg IV lasix in the ED. Patient is admitted for further management. Allergies codeine Allergy (Verified 07/21/22 22:24) Shortness of breath, tongue swelling Sulfa (Sulfonamide Antibiotics) Allergy (Verified 07/21/22 22:24) Itching/Hives/Rash Home medications list reviewed: Yes Home Medications: Fenofibrate,Micronized [Fenofibrate] 54 mg PO DAILY 01/03/22 Folic Acid 1 mg PO DAILY 01/03/22 Metoprolol Tartrate 25 mg PO BID 01/03/22 Mv-Mn/Iron/Folic Acid/Herb 190 [Vitamin D3 Complete Caplet] 50,000 unit PO SEECOM 01/03/22 [place]-3/Dha/Epa/Fish Oil [Nuretin Softgel] 1 cap PO DAILY 01/03/22 Pantoprazole [Protonix Tab*] 1 tab PO DAILY 01/03/22 Insulin Aspart [Novolog Flexpen] 22 units SQ SEECOM 01/04/22 Insulin Detemir [Levemir] 45 units SQ SEECOM 01/04/22 Magnesium Oxide [Mag 0X*] 400 mg PO BID #60 tab 01/05/22 Levothyroxine Sodium [Levothyroxine] 150 mcg PO DAILY 05/09/22 Amlodipine [Norvasc*] 2.5 mg PO DAILY 30 Days #30 tab 06/02/22 Hydralazine HCl [Apresoline] 50 mg PO TID 30 Days #90 tab 06/02/22 Calcitrol [Rocaltrol*] 0.5 mcg PO M,W,F 07/21/22 Doxazosin [Cardura] 1 mg PO BID 07/21/22 Dulaglutide [Trulicity] 1.5 mg SQ MO 07/21/22 Furosemide 40 mg PO MO,FR 07/21/22 Hydroxychloroquine [Plaquenil] 200 mg PO DAILY 07/21/22 predniSONE [Deltasone] 50 mg PO DAILY 07/21/22 - Past Medical/Surgical History Diabetic: Yes -: IDDM -: HTN -: Hypothyroid -: Morbid obesity -: Rheumatoid arthritis -: FSGS -: thyroidectomy -: Back surgery on the sciatic nerve Psychosocial/ Personal History: Patient is . - Family History Mother -: Diabetes, Cancer, Kidney disease - Social History Smoking Status: Never smoker Alcohol use: No CD- Drugs: No Caffeine use: No Place of Residence: Home Review of Systems Cardiovascular: Edema Physical Examination - Vital Signs Temperature: 98.2 F Blood Pressure: 162/58 Pulse: 65 Respirations: 22 Pulse Ox (%): 96 - Physical Exam General: Alert, In no apparent distress, Obese HEENT: Atraumatic, EOMI, Sclerae nonicteric Neck: Supple, 2+ carotid pulse no bruit Respiratory: Expiratory wheezes Cardiovascular: Regular rate/rhythm, Normal S1 S2, Edema (4+ pitting edema BLE) Gastrointestinal: Normal bowel sounds, No tenderness Musculoskeletal: No tenderness Integumentary: No rashes Neurological: Normal speech, Normal affect - Studies Laboratory Data (last 24 hrs) 07/21/22 16:12: Sodium 143, Potassium 4.1, BUN 58 H, Creatinine 2.39 H, Glucose 127 H, Total Bilirubin 0.3, AST 25, ALT 42, Alkaline Phosphatase 105 07/21/22 16:12: WBC 6.70, Hgb 10.5 L, Hct 30.8 L, Plt Count 140 L Assessment and Plan - Problems (Diagnosis) (1) CKD (chronic kidney disease) Current Visit: Yes Status: Chronic Qualifiers: Chronic kidney disease stage: stage 4 (severe) Qualified Code(s): N18.4 - Chronic kidney disease, stage 4 (severe) (2) Anasarca Current Visit: Yes Status: Acute (3) Congestive heart failure Current Visit: Yes Status: Acute Qualifiers: Heart failure type: unspecified Heart failure chronicity: acute Qualified Code(s): I50.9 - Heart failure, unspecified (4) Hypothyroidism Current Visit: Yes Status: Chronic Qualifiers: Hypothyroidism type: postoperative Qualified Code(s): E89.0 - Postprocedural hypothyroidism (5) Morbid obesity Current Visit: Yes Status: Chronic (6) Focal segmental glomerulosclerosis Current Visit: Yes Status: Chronic (7) Hypertension Current Visit: Yes Status: Chronic Qualifiers: Hypertension type: primary hypertension Qualified Code(s): I10 - Essential (primary) hypertension (8) Type 2 diabetes mellitus Current Visit: Yes Status: Chronic Qualifiers: Diabetes mellitus long-term insulin use: with adjunct faculty for medical terminology use Diabetes mellitus complication status: with hyperglycemia Qualified Code(s): E11.65 - Type 2 diabetes mellitus with hyperglycemia; Z79.4 - terminal manager (current) use of insulin - Plan Patient is admitted for further management of anasarca/new onset CHF. Continue diuresis with IV lasix. Monitor intake and output. 1200 cc/day fluid restriction. Daily weights. Cardiology and nephrology consult. Echo ordered. [facility] accu checks with mild sliding scale and diabetic diet. Monitor and replete electrolytes per protocol. Reconcile and continue home medications. Lovenox for VTE prophylaxis. Full code. Discharge Plan: Home Plan to discharge in: 48 Hours - Advance Directives Does patient have a Living Will: No Does patient have a Durable POA for Healthcare: Yes - Code Status/Comfort Care Code Status Assessed: Yes Code Status: Full Code Physician Review: Patient Assessed, Agree with Above Assessment and Plan Critical Care: No Time Spent Managing Pts Care (In Minutes): 50
[2022-07-21] MEDS ORDERED: ACETAMINOPHEN 500 MG TAB PO PRN (22:16)
[2022-07-21] MEDS ORDERED: ALBUTEROL 2.5 MG/3 ML NEB SOL NEB PRN (22:16)
[2022-07-21] MEDS: INSULIN -REGULAR HUMAN 50 UNIT/0.5 ML ML SQ SCH (23:15)
[2022-07-22 04:40] LABS: Hematocrit 28.3 % (36.0-45.0); Lymphocytes % 15.9 % (15.3-44.8); MCV 99.1 fL (80-100); MPV 8.6 fL (7.6-11.3); RBC Red Blood Cell Count 2.86 M/uL (3.86-4.86)
[2022-07-22 05:11] LABS: Magnesium 2.5 mg/dL (1.6-2.4); Phosphorus 5.2 mg/dL (2.5-4.9); Potassium 3.6 mmol/L (3.5-5.1)
[2022-07-22 05:12] LABS: Thyroid Stimulating Hormone 13.2 uIU/mL (0.358-3.740)
[2022-07-22 06:28] LABS: Blood Morphology Comment NOT SEEN (NOT SEEN); Platelet Estimate ADEQ
[2022-07-22] MEDS: INSULIN -REGULAR HUMAN 50 UNIT/0.5 ML ML SQ SCH ×4 (07:30→20:32)
[2022-07-22] MEDS ORDERED: ENOXAPARIN 40 MG/0.4 ML SQ SCH (09:00)
[2022-07-22] MEDS ORDERED: FUROSEMIDE 40 MG/4 ML VIAL IV SCH (09:00)
[2022-07-22] MEDS ORDERED: POTASSIUM CL SA 10 MEQ TAB PO ONE (09:00)
--- NOTE | 2022-07-22 14:02 | P.CNS ---
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 GFR at baseline. BNP sig elevated. Chest xray showed mild CHF. She received 40 mg IV lasix in the ED. Was started on Prednisone taper recently. Allergies codeine Allergy (Verified 07/21/22 22:24) Shortness of breath, tongue swelling Sulfa (Sulfonamide Antibiotics) Allergy (Verified 07/21/22 22:24) Itching/Hives/Rash Home Medications: Fenofibrate,Micronized [Fenofibrate] 54 mg PO DAILY 01/03/22 Folic Acid 1 mg PO DAILY 01/03/22 Metoprolol Tartrate 25 mg PO BID 01/03/22 Mv-Mn/Iron/Folic Acid/Herb 190 [Vitamin D3 Complete Caplet] 50,000 unit PO SEECOM 01/03/22 [place]-3/Dha/Epa/Fish Oil [Nuretin Softgel] 1 cap PO DAILY 01/03/22 Pantoprazole [Protonix Tab*] 1 tab PO DAILY 01/03/22 Insulin Aspart [Novolog Flexpen] 22 units SQ SEECOM 01/04/22 Insulin Detemir [Levemir] 40 units SQ DAILY WITH BREAKFAST 01/04/22 Magnesium Oxide [Mag 0X*] 400 mg PO BID #60 tab 01/05/22 Levothyroxine Sodium [Levothyroxine] 150 mcg PO DAILY 05/09/22 Amlodipine [Norvasc*] 2.5 mg PO DAILY 30 Days #30 tab 06/02/22 Hydralazine HCl [Apresoline] 50 mg PO TID 30 Days #90 tab 06/02/22 Calcitrol [Rocaltrol*] 0.5 mcg PO M,W,F 07/21/22 Doxazosin [Cardura] 1 mg PO BID 07/21/22 Dulaglutide [Trulicity] 1.5 mg SQ MO 07/21/22 Furosemide 40 mg PO MO,07/21/22 Hydroxychloroquine [Plaquenil] 200 mg PO DAILY 07/21/22 predniSONE [Deltasone] 50 mg PO DAILY 07/21/22 - Past Medical/Surgical History Diabetic: Yes -: IDDM -: HTN -: Hypothyroid -: Morbid obesity -: Rheumatoid arthritis -: FSGS -: thyroidectomy -: Back surgery on the sciatic nerve Psychosocial/ Personal History: Patient is . - Family History Mother Medical History: Diabetes, Cancer, Kidney disease - Social History Alcohol use: No CD- Drugs: No Caffeine use: No Place of Residence: Home Review of Systems General: Unremarkable Eyes: Unremarkable ENT: Unremarkable Respiratory: SOB with Excertion Cardiovascular: Unremarkable Gastrointestinal: Unremarkable Genitourinary: Unremarkable Musculoskeletal: Pedal edema Integumentary: Unremarkable Neurological: Unremarkable Lymphatics: Unremarkable Physical Examination Temp Pulse Resp BP Pulse Ox 98.1 F 73 16 158/79 H 91 07/22/22 12:00 07/22/22 12:00 07/22/22 12:00 07/22/22 12:00 07/22/22 12:00 General: Other (appears as her stated age) HEENT: Atraumatic Neck: Supple Respiratory: Other (symmetric chest expansion) Cardiovascular: No rubs, No murmurs Gastrointestinal: Soft and benign, No guarding Musculoskeletal: No clubbing, Swelling Integumentary: No warmth Neurological: Normal speech, Normal tone Lymphatics: No axilla or inguinal lymphadenopathy Urinary: Other (no bladder distention) External genitalia: Deferred Rectal: Deferred Laboratory Data (last 24 hrs) 07/21/22 16:12: Sodium 143, Potassium 4.1, BUN 58 H, Creatinine 2.39 H, Glucose 127 H, Total Bilirubin 0.3, AST 25, ALT 42, Alkaline Phosphatase 105 07/21/22 16:12: WBC 6.70, Hgb 10.5 L, Hct 30.8 L, Plt Count 140 L Conclusions/Impression: # Anasarca Start high dose lasix 80 mg IV q6h Urine chem on 07/22 showed adeq natriuresis Strictly low Na diet Do not restrict po fluid intake to avoid DEANNA on diuretics, unless serum Na drops below 130 # 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 Has many chronic changes Including severe intimal fibrosis and moderate tubular atrophy. She may still benefit from immunosuppressive therapy to delay onset of dialysis. She is currently on oral high-dose prednisone taper. She will be better off on nonsteroid approach long-term due to her type 2 diabetes. Reasonable nonsteroid approach include CellCept and rituximab. Would avoid calcineurin inhibitor due to her low GFR. Final immunosuppressive medication plan per primary associate professor of music Dr. Loaiza. High dose lasix & low Na diet as above Cont anti-hyperlipidemic tx F/u 25OHD, replete if low # Prophylaxis while on high dose steroid GI ppx - cont protonix Osteoporosis ppx - cont calcitriol; f/u PTH + 25OHD Thrush ppx - start clotrimazole marysol bid PJP ppx. Not indicated at this time. 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
[2022-07-22] MEDS: FUROSEMIDE 40 MG/4 ML VIAL IV SCH ×2 (15:15→20:36)
[2022-07-22] MEDS ORDERED: HERB PO SCH (15:45)
[2022-07-22] MEDS ORDERED: IRON PO SCH (15:45)
[2022-07-22] MEDS ORDERED: HOME MED 1 EA UNK (Insulin Detemir [Levemir] 100 UNIT/ML Vial) SQ SCH (15:45)
[2022-07-22] MEDS ORDERED: FOLIC ACID PO SCH (15:45)
[2022-07-22] MEDS ORDERED: MV MN PO SCH (15:45)
--- NOTE | 2022-07-22 16:00 | P.PN ---
Subjective Date of Service: 07/22/22 Primary Care Provider: Fadia Chief Complaint: Anasarca Patient states her lower extremity swelling improved. She has no other complaints. Physical Examination - Vital Signs Temperature: 98.1 F Blood Pressure: 158/79 Pulse: 73 Respirations: 16 Pulse Ox (%): 91 - Studies Laboratory Data (last 24 hrs) 07/21/22 16:12: Sodium 143, Potassium 4.1, BUN 58 H, Creatinine 2.39 H, Glucose 127 H, Total Bilirubin 0.3, AST 25, ALT 42, Alkaline Phosphatase 105 07/21/22 16:12: WBC 6.70, Hgb 10.5 L, Hct 30.8 L, Plt Count 140 L Assessment And Plan - Current Problems (Diagnosis) (1) Nephrotic syndrome Current Visit: Yes Status: Acute (2) Anasarca Current Visit: Yes Status: Acute (3) Focal segmental glomerulosclerosis Current Visit: Yes Status: Chronic (4) Hypertension Current Visit: Yes Status: Chronic Qualifiers: Hypertension type: primary hypertension Qualified Code(s): I10 - Essential (primary) hypertension (5) Hypothyroidism Current Visit: Yes Status: Chronic Qualifiers: Hypothyroidism type: postoperative Qualified Code(s): E89.0 - Postprocedural hypothyroidism (6) Morbid obesity Current Visit: Yes Status: Chronic (7) Type 2 diabetes mellitus Current Visit: Yes Status: Chronic Qualifiers: Diabetes mellitus barrel header insulin use: with barrel header use Diabetes mellitus complication status: with hyperglycemia Qualified Code(s): E11.65 - Type 2 diabetes mellitus with hyperglycemia; Z79.4 - credit representative (current) use of insulin - Plan Physical Exam General: Alert, In no apparent distress, Obese HEENT: Sclerae nonicteric Neck: Supple, 2+ carotid pulse no bruit Respiratory: Diminished breath sounds bilaterally Cardiovascular: Regular rate/rhythm, Normal S1 S2, pitting edema BLE) Gastrointestinal: Normal bowel sounds, No tenderness Musculoskeletal: No tenderness Integumentary: No rashes Neurological: No focal motor deficit. Plan: Patient seen by nephrology. Lasix dose increased to 80 mg q6H. Monitor intake and output. Diet as tolerated Increase activity as tolerated. Resume home dose steroid. Insulin sliding scale for glucose management. Long-acting insulin. Resume home antihypertensives. Check TSH. Nephrology to follow.
[2022-07-22] MEDS: CALCITROL 0.25 MCG CAP PO SCH (16:20)
[2022-07-22 18:46] LABS: UR PROTEIN 16.5 mg/dL (<11.9)
[2022-07-22 18:49] LABS: UR CREAT < 13.0 mg/dL (20-320)
[2022-07-22] MEDS: HYDRALAZINE HCL 25 MG TABLET PO SCH (20:36)
[2022-07-22] MEDS: DOXAZOSIN 2 MG TAB PO SCH (20:37)
[2022-07-22] MEDS: METOPROLOL TAR 25 MG TAB PO SCH (20:37)
[2022-07-22] MEDS: MAGNESIUM OXIDE 400 MG TAB PO SCH (20:38)
[2022-07-22] MEDS ORDERED: HOME MED 1 EA UNK (Hydralazine Hcl [Apresoline] 50 MG Tablet) PO SCH (21:00)
[2022-07-22] MEDS ORDERED: DOXAZOSIN 1 MG TAB PO SCH (21:00)
[2022-07-22] MEDS: BENZONATATE 100 MG CAP PO PRN (21:51)
[2022-07-23] MEDS: FUROSEMIDE 40 MG/4 ML VIAL IV SCH ×4 (02:43→20:17)
[2022-07-23 05:37] LABS: Potassium 3.3 mmol/L (3.5-5.1)
[2022-07-23 05:39] LABS: Thyroid Stimulating Hormone 28.5 uIU/mL (0.358-3.740)
[2022-07-23] MEDS ORDERED: POTASSIUM CL SA 10 MEQ TAB PO ONE (06:00)
[2022-07-23] MEDS: BENZONATATE 100 MG CAP PO PRN ×2 (06:29→20:17)
[2022-07-23] MEDS ORDERED: LEVOTHYROXINE SOD 0.075 MG TAB PO SCH (06:30)
[2022-07-23] MEDS ORDERED: HOME MED 1 EA UNK (Insulin Detemir [Levemir] 100 UNIT/ML Vial) SQ SCH (08:00)
[2022-07-23] MEDS: INSULIN -REGULAR HUMAN 50 UNIT/0.5 ML ML SQ SCH ×4 (08:41→20:34)
[2022-07-23] MEDS: FOLIC ACID 1 MG TABLET PO SCH (08:42)
[2022-07-23] MEDS: INSULIN GLARGINE 100 UNIT/ML SQ SCH (08:42)
[2022-07-23] MEDS: ENOXAPARIN 30 MG/0.3 ML SQ SCH (08:42)
[2022-07-23] MEDS: predniSONE 20 MG TAB PO SCH (08:43)
[2022-07-23] MEDS: MAGNESIUM OXIDE 400 MG TAB PO SCH ×2 (08:43→20:15)
[2022-07-23] MEDS: HYDRALAZINE HCL 25 MG TABLET PO SCH ×3 (08:43→20:15)
[2022-07-23] MEDS: AMLODIPINE 2.5 MG TAB PO SCH (08:45)
[2022-07-23] MEDS: METOPROLOL TAR 25 MG TAB PO SCH ×2 (08:46→20:16)
[2022-07-23] MEDS: HYDROXYCHLOROQUINE 200MG TAB PO SCH (08:46)
[2022-07-23] MEDS: PANTOPRAZOLE 40MG TABLET PO SCH (08:47)
[2022-07-23] MEDS: FENOFIBRATE MICRONIZED PO SCH (08:57)
[2022-07-23] MEDS: DOXAZOSIN 2 MG TAB PO SCH ×2 (08:57→20:15)
[2022-07-23] MEDS: EPA PO SCH (08:58)
[2022-07-23] MEDS: FISH OIL PO SCH (08:58)
[2022-07-23] MEDS: OMEGA PO SCH (08:58)
[2022-07-23] MEDS: DHA PO SCH (08:58)
[2022-07-23] MEDS ORDERED: HOME MED 1 EA UNK (Levothyroxine Sodium [Levothyroxine] 150 MCG Capsule) PO SCH (09:00)
[2022-07-23] MEDS: CLOTRIMAZOLE 10 MG TROCHE PO SCH ×2 (09:35→20:16)
--- NOTE | 2022-07-23 15:07 | P.PN ---
Subjective Date of Service: 07/23/22 Primary Care Provider: Fadia Chief Complaint: Anasarca Patient's lower extremity swelling have significantly improved. She has no other complaints. Physical Examination - Vital Signs Temperature: 97.1 F Blood Pressure: 146/63 Pulse: 97 Respirations: 17 Pulse Ox (%): 99 Assessment And Plan - Current Problems (Diagnosis) (1) Nephrotic syndrome Current Visit: Yes Status: Acute (2) Anasarca Current Visit: Yes Status: Acute (3) Focal segmental glomerulosclerosis Current Visit: Yes Status: Chronic (4) Hypertension Current Visit: Yes Status: Chronic Qualifiers: Hypertension type: primary hypertension Qualified Code(s): I10 - Essential (primary) hypertension (5) Hypothyroidism Current Visit: Yes Status: Chronic Qualifiers: Hypothyroidism type: postoperative Qualified Code(s): E89.0 - Postpro cedural hypothyroidism (6) Morbid obesity Current Visit: Yes Status: Chronic (7) Type 2 diabetes mellitus Current Visit: Yes Status: Chronic Qualifiers: Diabetes mellitus penitentiary insulin use: with joint terminal attack controller use Diabetes mellitus complication status: with hyperglycemia Qualified Code(s): E11.65 - Type 2 diabetes mellitus with hyperglycemia; Z79.4 - intermodal truck driver (current) use of insulin - Plan Physical Exam General: Alert, In no apparent distress, Obese Neck: Supple, no elevated JVD. Respiratory: Diminished breath sounds bilaterally Cardiovascular: Regular rate/rhythm, Normal S1 S2, bilateral lower extremity edema almost resolved. Gastrointestinal: Normal bowel sounds, No tenderness Integumentary: No rashes Neurological: No focal motor deficit. Plan: Nephrology is following. Patient is on high-dose Lasix-80 mg IV every 6 hours. Renal function has been stable Continue to monitor intake and output. Diet as tolerated Activity as tolerated. Patient states she has been ambulatory. Insulin sliding scale for glucose management. Current home antihypertensives. TSH is elevated. Increase Synthroid dose from 150 mcg to 175 mcg daily. Nephrology to follow.
[2022-07-23] MEDS ORDERED: INSULIN GLARGINE 100 UNIT/ML SQ ONE (16:01)
--- NOTE | 2022-07-23 18:06 | P.PN ---
Subjective Date of Service: 07/23/22 Primary Care Provider: Fadia Chief Complaint: Anasarca Today Pt with HX of FSGD and CKD , admitted for fluid overload Today complaining of leg pain, trace edema on exam cont lasix Physical exam General: AAOx3, in mild distress , obese HEENT PERRLA, moist mucose membrane neck: supple, no elevated JVD CHEST; CTAB, mild wheezes HEART : RRR. 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 Has many chronic changes Including severe intimal fibrosis and moderate tubular atrophy. She may still benefit from immunosuppressive therapy to delay onset of dialysis. She is currently on oral high-dose prednisone taper. She will be better off on nonsteroid approach long-term due to her type 2 diabetes. High dose lasix & low Na diet as above Cont anti-hyperlipidemic tx F/u 25OHD, replete if low # Prophylaxis while on high dose steroid GI ppx - cont protonix Osteoporosis ppx - cont calcitriol; f/u PTH + 25OHD PJP ppx. Not indicated at this time. 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
[2022-07-23] MEDS ORDERED: INSULIN -REGULAR HUMAN 50 UNIT/0.5 ML ML IV ONE (20:09)
[2022-07-23] MEDS ORDERED: CLOTRIMAZOLE 10 MG TROCHE PO SCH (21:00)
[2022-07-24] MEDS: FUROSEMIDE 40 MG/4 ML VIAL IV SCH ×2 (02:43→08:58)
[2022-07-24 04:35] LABS: Phosphorus 5.5 mg/dL (2.5-4.9); Potassium 3.3 mmol/L (3.5-5.1)
[2022-07-24] MEDS: LEVOTHYROXINE SOD 0.05 MG TABLET PO SCH (05:16)
[2022-07-24] MEDS ORDERED: POTASSIUM CL SA 10 MEQ TAB PO ONE (06:00)
[2022-07-24] MEDS: BENZONATATE 100 MG CAP PO PRN ×2 (08:56→17:03)
[2022-07-24] MEDS: INSULIN GLARGINE 100 UNIT/ML SQ SCH (08:57)
[2022-07-24] MEDS: INSULIN -REGULAR HUMAN 50 UNIT/0.5 ML ML SQ SCH ×4 (08:57→21:09)
[2022-07-24] MEDS: ENOXAPARIN 30 MG/0.3 ML SQ SCH (08:57)
[2022-07-24] MEDS: PANTOPRAZOLE 40MG TABLET PO SCH (08:58)
[2022-07-24] MEDS: MAGNESIUM OXIDE 400 MG TAB PO SCH ×2 (08:58→21:07)
[2022-07-24] MEDS: FOLIC ACID 1 MG TABLET PO SCH (08:58)
[2022-07-24] MEDS: HYDRALAZINE HCL 25 MG TABLET PO SCH ×3 (08:58→21:08)
[2022-07-24] MEDS: predniSONE 20 MG TAB PO SCH (08:58)
[2022-07-24] MEDS: METOPROLOL TAR 25 MG TAB PO SCH ×2 (08:59→21:07)
[2022-07-24] MEDS: CLOTRIMAZOLE 10 MG TROCHE PO SCH ×2 (08:59→21:07)
[2022-07-24] MEDS: HYDROXYCHLOROQUINE 200MG TAB PO SCH (08:59)
[2022-07-24] MEDS: FENOFIBRATE MICRONIZED PO SCH (08:59)
[2022-07-24] MEDS: OMEGA PO SCH (09:00)
[2022-07-24] MEDS: FISH OIL PO SCH (09:00)
[2022-07-24] MEDS: AMLODIPINE 2.5 MG TAB PO SCH (09:00)
[2022-07-24] MEDS: EPA PO SCH (09:00)
[2022-07-24] MEDS: DHA PO SCH (09:00)
[2022-07-24] MEDS: DOXAZOSIN 2 MG TAB PO SCH ×2 (09:43→21:07)
--- NOTE | 2022-07-24 13:11 | P.PN ---
Subjective Date of Service: 07/24/22 Primary Care Provider: Fadia Chief Complaint: Anasarca Today Pt with HX of FSGD and CKD , admitted for fluid overload Today leg pain improved cr up to 3.0 will stop lasix for today and give albumin will reduce prednsione to 40mg daily Physical exam General: AAOx3, in mild distress , obese HEENT PERRLA, moist mucose membrane neck: supple, no elevated JVD CHEST; CTAB, mild wheezes HEART : RRR. 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 Has many chronic changes Including severe intimal fibrosis and moderate tubular atrophy. She may still benefit from immunosuppressive therapy to delay onset of dialysis. She is currently on oral high-dose prednisone taper. She will be better off on nonsteroid approach long-term due to her type 2 diabetes. High dose lasix & low Na diet as above Cont anti-hyperlipidemic tx F/u 25OHD, replete if low # Prophylaxis while on high dose steroid GI ppx - cont protonix Osteoporosis ppx - cont calcitriol; f/u PTH + 25OHD PJP ppx. Not indicated at this time. 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
--- NOTE | 2022-07-24 14:27 | P.PN ---
Subjective Date of Service: 07/24/22 Primary Care Provider: Fadia Chief Complaint: Anasarca Patient's has no new complain. She denies shortness of breath. Physical Examination - Vital Signs Temperature: 97.2 F Blood Pressure: 128/60 Pulse: 64 Respirations: 19 Pulse Ox (%): 95 Assessment And Plan - Current Problems (Diagnosis) (1) Nephrotic syndrome Current Visit: Yes Status: Acute (2) Anasarca Current Visit: Yes Status: Acute (3) Focal segmental glomerulosclerosis Current Visit: Yes Status: Chronic (4) Hypertension Current Visit: Yes Status: Chronic Qualifiers: Hypertension type: primary hypertension Qualified Code(s): I10 - Essential (primary) hypertension (5) Hypothyroidism Current Visit: Yes Status: Chronic Qualifiers: Hypothyroidism type: postoperative Qualified Code(s): E89.0 - Postprocedural hypothyroidism (6) Morbid obesity Current Visit: Yes Status: Chronic (7) Type 2 diabetes mellitus Current Visit: Yes Status: Chronic Qualifiers: Diabetes mellitus pallet stone positioner insulin use: with pallet stone positioner use Diabetes mellitus complication status: with hyperglycemia Qualified Code(s): E11.65 - Type 2 diabetes mellitus with hyperglycemia; Z79.4 - form setter helper (current) use of insulin - Plan Physical Exam General: Alert, In no apparent distress, Obese Neck: Supple, no elevated JVD. Respiratory: Diminished breath sounds bilaterally Cardiovascular: Regular rate/rhythm, Normal S1 S2, bilateral lower extremity edema almost resolved. Gastrointestinal: Normal bowel sounds, No tenderness Integumentary: No rashes Neurological: No focal motor deficit. Plan: Nephrology is following. Lasix held today due to rising creatinine. Nephrology recommended albumin infusion Continue to monitor intake and output. Diet as tolerated Activity as tolerated. Patient states she has been ambulatory. Insulin sliding scale for glucose management. Titrate Lantus insulin for hyperglycemia. Current home antihypertensives. TSH is elevated. Synthroid dose increased from 150 mcg to 175 mcg daily. Planning to discharge when renal function stabilize. Physician Review: Patient Assessed, Agree with Above Assessment and Plan
[2022-07-24] MEDS ORDERED: INSULIN GLARGINE 100 UNIT/ML SQ ONE (16:16)
[2022-07-24] MEDS: ALBUMIN HUMAN 25% 100 ML IV SCH (16:51)
[2022-07-24] MEDS: ALBUTEROL 2.5 MG/3 ML NEB SOL NEB PRN (17:35)
[2022-07-24] MEDS ORDERED: GABAPENTIN 100 MG CAP PO ONE (21:16)
[2022-07-24] MEDS ORDERED: INSULIN -REGULAR HUMAN 50 UNIT/0.5 ML ML IV ONE (21:22)
[2022-07-25] MEDS: ALBUMIN HUMAN 25% 100 ML IV SCH ×2 (00:47→08:27)
[2022-07-25 04:54] LABS: Albumin 3.2 g/dL (3.4-5.0); Phosphorus 5.6 mg/dL (2.5-4.9); Potassium 3.8 mmol/L (3.5-5.1)
[2022-07-25] MEDS: LEVOTHYROXINE SOD 0.05 MG TABLET PO SCH (05:38)
--- NOTE | 2022-07-25 06:46 | ECHO ---
HEIGHT: 5 ft 2 in WEIGHT: 249 lb 0.8 oz DATE OF STUDY: 07/22/[address]: Marilyn Sharma 2-DIMENSIONAL: YES M.MODE: YES DOPPLER: YES COLOR FLOW: YES TDS: YES PORTABLE: YES DEFINITY: BUBBLE STUDY: DIAGNOSIS: NEW ONSET ATRIAL FIBRILLATION CARDIAC HISTORY: CATHERIZATION: SURGERY: PROSTHETIC VALVE: PACEMAKER: MEASUREMENTS (cm) DIASTOLIC (NORMALS) SYSTOLIC (NORMALS) IVSd 1.0 (0.6-1.2) LA Diam 3.6 (1.9-4.0) LVEF 77% LVIDd 4.2 (3.5-5.7) LVIDs 2.3 (2.0-3.5) %FS 46% LVPWd 1.1 (0.6-1.2) Ao Diam 2.5 (2.0-3.7) 2 DIMENSIONAL ASSESSMENT: RIGHT ATRIUM: NORMAL LEFT ATRIUM: NORMAL RIGHT VENTRICLE: NORMAL LEFT VENTRICLE: NORMAL TRICUSPID VALVE: NORMAL MITRAL VALVE: MITRAL ANNULAR CALCIFICATION WITH MILD MITRAL REGURGITATION PULMONIC VALVE: NORMAL AORTIC VALVE: MODERATE AORTIC STENOSIS, MILD AORTIC INSUFFICIENCY PERICARDIAL EFFUSION: NONE AORTIC ROOT: NORMAL LEFT VENTRICULAR WALL MOTION: NORMAL DOPPLER/COLOR FLOW: SEE BELOW COMMENTS: 1. NORMAL LEFT VENTRICULAR EJECTION FRACTION 60-65% 2. NORMAL WALL MOTION 3. CALCIFIED AORTIC VALVE WITH MODERATE AORTIC STENOSIS, MILD AORTIC INSUFFICIENCY LIKELY BICUSPID AORTIC VALVE 4. MITRAL ANNULAR CALCIFICATION WITH MILD MITRAL REGURGITATION 5. MODERATE DIASTOLIC DYSFUNCTION TECHNOLOGIST: ASHUTOSH SWEET
[2022-07-25] MEDS: INSULIN -REGULAR HUMAN 50 UNIT/0.5 ML ML SQ SCH ×4 (07:30→20:40)
[2022-07-25] MEDS: INSULIN GLARGINE 100 UNIT/ML SQ SCH ×2 (08:22→16:34)
[2022-07-25] MEDS: CLOTRIMAZOLE 10 MG TROCHE PO SCH ×2 (08:23→20:39)
[2022-07-25] MEDS: METOPROLOL TAR 25 MG TAB PO SCH ×2 (08:23→20:39)
[2022-07-25] MEDS: BENZONATATE 100 MG CAP PO PRN ×2 (08:23→16:33)
[2022-07-25] MEDS: PANTOPRAZOLE 40MG TABLET PO SCH (08:24)
[2022-07-25] MEDS: HYDRALAZINE HCL 25 MG TABLET PO SCH ×3 (08:24→20:38)
[2022-07-25] MEDS: DOXAZOSIN 2 MG TAB PO SCH ×2 (08:24→20:38)
[2022-07-25] MEDS: HYDROXYCHLOROQUINE 200MG TAB PO SCH (08:25)
[2022-07-25] MEDS: FOLIC ACID 1 MG TABLET PO SCH (08:25)
[2022-07-25] MEDS: ENOXAPARIN 30 MG/0.3 ML SQ SCH (08:25)
[2022-07-25] MEDS: FENOFIBRATE MICRONIZED PO SCH (08:25)
[2022-07-25] MEDS: MAGNESIUM OXIDE 400 MG TAB PO SCH ×2 (08:25→20:39)
[2022-07-25] MEDS: OMEGA PO SCH (08:26)
[2022-07-25] MEDS: DHA PO SCH (08:26)
[2022-07-25] MEDS: EPA PO SCH (08:26)
[2022-07-25] MEDS: AMLODIPINE 2.5 MG TAB PO SCH (08:26)
[2022-07-25] MEDS: FISH OIL PO SCH (08:26)
[2022-07-25] MEDS ORDERED: predniSONE 20 MG TAB PO SCH (09:00)
[2022-07-25] MEDS ORDERED: POTASSIUM CL SA 10 MEQ TAB PO ONE (09:00)
[2022-07-25] MEDS: ALBUTEROL 2.5 MG/3 ML NEB SOL NEB PRN ×2 (11:16→15:59)
--- NOTE | 2022-07-25 16:02 | P.PN ---
Subjective Date of Service: 07/25/22 Primary Care Provider: Fadia Chief Complaint: Anasarca Patient's has no new complain. She denies shortness of breath. Blood sugar is intermittently elevated. Serum creatinine trended up. Physical Examination - Vital Signs Temperature: 96.6 F Blood Pressure: 126/62 Pulse: 69 Respirations: 17 Pulse Ox (%): 95 Assessment And Plan - Current Problems (Diagnosis) (1) Nephrotic syndrome Current Visit: Yes Status: Acute (2) Anasarca Current Visit: Yes Status: Acute (3) Focal segmental glomerulosclerosis Current Visit: Yes Status: Chronic (4) Hypertension Current Visit: Yes Status: Chronic Qualifiers: Hypertension type: primary hypertension Qualified Code(s): I10 - Essential (primary) hypertension (5) Hypothyroidism Current Visit: Yes Status: Chronic Qualifiers: Hypothyroidism type: postoperative Qualified Code(s): E89.0 - Postprocedural hypothyroidism (6) Morbid obesity Current Visit: Yes Status: Chronic (7) Type 2 diabetes mellitus Current Visit: Yes Status: Chronic Qualifiers: Diabetes mellitus terminologist insulin use: with retirement use Diabetes mellitus complication status: with hyperglycemia Qualified Code(s): E11.65 - Type 2 diabetes mellitus with hyperglycemia; Z79.4 - terminal gauger supervisor (current) use of insulin - Plan Physical Exam General: Alert, In no apparent distress, Obese Neck: Supple, no elevated JVD. Respiratory: Diminished breath sounds bilaterally Cardiovascular: Regular rate/rhythm, Normal S1 S2, bilateral lower extremity edema almost resolved. Gastrointestinal: Normal bowel sounds, No tenderness Integumentary: No rashes Neurological: No focal motor deficit. Plan: Nephrology is following. Lasix held yesterday due to rising creatinine. Creatinine continues to trend up. Status post albumin infusion per nephrology. Lasix is still on hold Continue to monitor intake and output. Diet as tolerated Insulin sliding scale for glucose management. Titrate Lantus insulin for hyperglycemia. Patient currently getting Lantus insulin 45 units in the morning and 20 units in the evening. Current home antihypertensives. TSH is elevated. Synthroid dose increased from 150 mcg to 175 mcg daily. Planning to discharge to home once renal function has stabilized.
[2022-07-25] MEDS: CALCITROL 0.25 MCG CAP PO SCH (16:33)
[2022-07-25] MEDS ORDERED: INSULIN -REGULAR HUMAN 50 UNIT/0.5 ML ML IV ONE (22:31)
[2022-07-26] MEDS: ALBUTEROL 2.5 MG/3 ML NEB SOL NEB PRN ×4 (01:15→21:26)
[2022-07-26 05:54] LABS: Absolute Lymphocytes (CBC) 0.8 K/uL (0.7-4.9); Hematocrit 25.8 % (36.0-45.0); Lymphocytes % 11.9 % (15.3-44.8); MCV 98.4 fL (80-100); RBC Red Blood Cell Count 2.62 M/uL (3.86-4.86)
[2022-07-26 05:59] LABS: Albumin 3.2 g/dL (3.4-5.0); Phosphorus 3.8 mg/dL (2.5-4.9); Potassium 3.7 mmol/L (3.5-5.1)
--- NOTE | 2022-07-26 06:29 | PN ---
Date of Progress Note: 07/25/2022 Chief Complaint: Acute kidney injury, chronic kidney disease stage 4; focal segmental glomeruloscler osis; diabetic kidney disease; proteinuria. The patient was started on prednisone for FSGS, although she developed fluid overload despite diuretic. She remained fluid overloaded, and she came to the ospital because of progressively worsening lower extremity edema. During this admission, the patient was found to have acute kidney injury. Serum creatinine level has risen to 3.0. Lasix was stopped. The patient is on albumin. Prednisone was reduced to 40 mg. Review of Systems: The patient denies fever, chills, although she has cough. Denies nausea, vomiting. Physical Examination: Lungs: Few rhonchi. Heart: S1, S2. Abdomen: Soft. Extremities: Trace edema. Impression And Plan: 1.Anasarca, edema has improved. Although Lasix was stopped, creatinine level has not improved signi ficantly. The patient will continue IV albumin. Lasix is on hold. 2.Continue to avoid diuretics due to acute kidney injury. 3.Primary collapsing variant of focal segmental glomerulosclerosis. Has secondary focal segmental g lomerulosclerosis from diabetes mellitus. The patient had previous renal biopsy, which showed collap sing features with superimposed diabetic glomerulosclerosis versus primary focal segmental glomerulos clerosis, and the patient was started on prednisone. The patient has advanced chronic kidney disease . Interstitial fibrosis was of moderate degree. There was moderate tubular atrophy as well consiste nt with advanced chronic kidney disease. The patient may still benefit from immunosuppressive medica tion, although prednisone at this point will be weaned off gradually. 4.Hypothyroid, has increased Synthroid. TSH is elevated. 5.Hypocalcemia, 25-hydroxy vitamin D level is within normal limits and intact PTH is opti mal and controlled. The patient was taking calcitriol dose, will be increased to control hypocalcemi a. EB/MODL Voice ID: [id number] Report ID: [id number]
[2022-07-26] MEDS: LEVOTHYROXINE SOD 0.1 MG TAB PO SCH (07:03)
[2022-07-26] MEDS: INSULIN -REGULAR HUMAN 50 UNIT/0.5 ML ML SQ SCH ×5 (07:30→21:04)
[2022-07-26] MEDS: DHA PO SCH (09:00)
[2022-07-26] MEDS: EPA PO SCH (09:00)
[2022-07-26] MEDS: FISH OIL PO SCH (09:00)
[2022-07-26] MEDS: OMEGA PO SCH (09:00)
--- NOTE | 2022-07-26 09:21 | RAD REPORT ---
EXAM DESCRIPTION: RAD - Chest Pa And Lat (2 Views) - 07/26/2022 9:15 am CLINICAL HISTORY: cough COMPARISON: Chest Single View dated 07/21/2022; Chest Single View dated 06/25/2022; Chest Single View d ated 01/02/2022; Chest Pa And Lat (2 Views) dated 10/13/2020 FINDINGS: Lines: None. Lungs: No evidence of edema or pneumonia. Pleural: No significant pleural effusions or pneumothorax. Cardiac: Similar cardiomegaly. Mediastinum: Within normal limits. Bones: No acute fractures. Other: None IMPRESSION: No acute cardiopulmonary disease.
[2022-07-26] MEDS: INSULIN GLARGINE 100 UNIT/ML SQ SCH ×2 (09:42→17:10)
[2022-07-26] MEDS: CALCIUM ACETATE 667 MG TAB PO SCH ×3 (09:42→17:09)
[2022-07-26] MEDS: HYDRALAZINE HCL 25 MG TABLET PO SCH ×3 (09:43→20:48)
[2022-07-26] MEDS: DOXAZOSIN 2 MG TAB PO SCH ×2 (09:44→20:49)
[2022-07-26] MEDS: predniSONE 20 MG TAB PO SCH (09:44)
[2022-07-26] MEDS: METOPROLOL TAR 25 MG TAB PO SCH ×2 (09:45→20:49)
[2022-07-26] MEDS: FOLIC ACID 1 MG TABLET PO SCH (09:45)
[2022-07-26] MEDS: AMLODIPINE 2.5 MG TAB PO SCH (09:46)
[2022-07-26] MEDS: ENOXAPARIN 30 MG/0.3 ML SQ SCH (09:46)
[2022-07-26] MEDS: HYDROXYCHLOROQUINE 200MG TAB PO SCH (09:48)
[2022-07-26] MEDS: CALCITROL 0.25 MCG CAP PO SCH (09:48)
[2022-07-26] MEDS: BENZONATATE 100 MG CAP PO PRN ×3 (09:48→22:40)
[2022-07-26] MEDS: PANTOPRAZOLE 40MG TABLET PO SCH (09:48)
[2022-07-26] MEDS: CLOTRIMAZOLE 10 MG TROCHE PO SCH ×2 (09:48→20:50)
[2022-07-26] MEDS ORDERED: EPOETIN ALFA-EPBX 10,000 UNIT/ML VIAL SQ SCH (14:00)
--- NOTE | 2022-07-26 15:14 | PN ---
Date of Progress Note: 07/26/2022 Subjective: Patient was admitted to the hospital with acute kidney injury secondary to FSGS. Patient also has respiratory distress secondary to COPD exacerbation. Physical Examination: Vital Signs: Blood pressure 135/63, pulse of 68, afebrile. Patient had good urine output of 2800, negative of 2 L. Chest: Wheezing bilateral. Heart: S1, S2 regular. Abdomen: Soft, nontender. Extremities: Plus edema. Neuro: Alert. No focality. Laboratory Data: Hemoglobin 8.7. Sodium 142, potassium 3.7, bicarb 32, BUN 79, creatinine 2.5. Continue to improve today compared to yesterday. Calcium 7.2. Phos 3.8. Albumin 3.2. Current Medications: The patient on include: 1. Plaquenil. 2. Lovenox. 3. Amlodipine 2.5. 4. Cardura 1 mg b.i.d. 5. Zetia. 6. Hydralazine 75 t.i.d. 7. Metoprolol. 8. PhosLo. 9. Folic acid. 10. Pantoprazole. 11. Levothyroxine. 12. Prednisone 30 daily. 13. KCl. Assessment And Plan: 1. Acute kidney injury/progression of disease secondary to cardiorenal. Patient looked to me still on the overvolume side. Kidney function continued to improve. Going toward her baseline, I am going to continue to monitor the patient. I will give the patient a single dose of Lasix. Patient is not going to need diuresis as patient is negative without diuresing. We will monitor. 2. Hypertension, controlled, optimal. Continue current treatment. 3. Anemia of chronic kidney disease, stable. I am going to give the patient BECKY. 4. Chronic obstructive pulmonary disease exacerbation as by primary. 5. Focal segmental glomerulosclerosis. Continue prednisone. We will follow up outpatient. 6. Nephrotic range of proteinuria secondary to focal segmental glomerulosclerosis as above. time spend exam the patient face to face , reviewing data lab and radiology placing order , discussing with iván member nursing and hospitalist >35 min ISA Voice ID: [id number] Report ID: [id number] [facility]
--- NOTE | 2022-07-26 17:32 | EKG ---
Test Date: 2022-07-21 Test Time: 16:09:41 Venetian Blind Mechanic: LEXIS MEASUREMENT RESULTS: Intervals: Rate: 68 [place]: 158 QRSD: 78 QT: 466 QTc: 495 [place]: P: 63 [place]: 158 QRS: 59 T: 58 INTERPRETIVE STATEMENTS: Normal sinus rhythm Prolonged QT Abnormal ECG Compared to ECG 06/25/2022 10:32:16 Prolonged QT interval now present Electronically Signed On 07-26-22 17:19:33 EDGE STITCHER by Archie Bhardwaj
[2022-07-26] MEDS ORDERED: EZETIMIBE 10 MG TAB PO SCH (21:00)
[2022-07-26] MEDS ORDERED: D50W 25 GM/50 ML SYRINGE IV PRN (21:53)
[2022-07-26] MEDS ORDERED: GLUCAGON 1 MG/VIAL IM PRN (21:53)
[2022-07-26] MEDS ORDERED: D10W 125 ML IV PRN (21:59)
--- NOTE | 2022-07-26 22:01 | P.PN ---
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 DEANNA on CKD3, secondary to FSGS, cardiorenal syndrome moderate aortic stenosis acute on chronic diastolic CHF HTN Hypothyroidism Anemia of chronic disease Insulin-dependent DM2 with steroid induce hyperglycemia Rheumatoid arthritis diuresed well renal function worsened lasix held improving nephrology following monitor I/Os DEANNA improved on 07/26 edema secondary steroid use, diastolic-CHF echo with moderate aortic stenosis cardiology consulted TSH elevated synthroid increased IDDM2, with steroid induced hyperglycemia titrate insulin restart home mealtime novolog Code: full Dispo: home, ~1-2 days
[2022-07-26 23:03] VITALS: BMI 45.7
[2022-07-27] MEDS: INSULIN -REGULAR HUMAN 50 UNIT/0.5 ML ML SQ SCH ×3 (00:58→11:30)
[2022-07-27 04:45] VITALS: O2SAT 97
[2022-07-27] MEDS: LEVOTHYROXINE SOD 0.1 MG TAB PO SCH (05:34)
[2022-07-27 06:10] LABS: Albumin 3.1 g/dL (3.4-5.0); Magnesium 2.7 mg/dL (1.6-2.4); Phosphorus 3.7 mg/dL (2.5-4.9); Potassium 3.7 mmol/L (3.5-5.1)
[2022-07-27 06:11] LABS: Hematocrit 26.1 % (36.0-45.0); MCV 98.4 fL (80-100); RBC Red Blood Cell Count 2.65 M/uL (3.86-4.86)
[2022-07-27] MEDS: OMEGA PO SCH (09:00)
[2022-07-27] MEDS: FISH OIL PO SCH (09:00)
[2022-07-27] MEDS: DHA PO SCH (09:00)
[2022-07-27] MEDS ORDERED: POTASSIUM CL SA 10 MEQ TAB PO ONE (09:00)
[2022-07-27] MEDS: EPA PO SCH (09:00)
[2022-07-27] MEDS: ALBUTEROL 2.5 MG/3 ML NEB SOL NEB PRN ×2 (09:16→13:45)
[2022-07-27] MEDS: HYDROXYCHLOROQUINE 200MG TAB PO SCH (10:19)
[2022-07-27] MEDS: CLOTRIMAZOLE 10 MG TROCHE PO SCH (10:19)
[2022-07-27] MEDS: predniSONE 20 MG TAB PO SCH (10:19)
[2022-07-27] MEDS: CALCIUM ACETATE 667 MG TAB PO SCH ×2 (10:19→13:11)
[2022-07-27] MEDS: METOPROLOL TAR 25 MG TAB PO SCH (10:20)
[2022-07-27] MEDS: HYDRALAZINE HCL 25 MG TABLET PO SCH ×2 (10:20→15:40)
[2022-07-27] MEDS: ENOXAPARIN 30 MG/0.3 ML SQ SCH (10:20)
[2022-07-27] MEDS: PANTOPRAZOLE 40MG TABLET PO SCH (10:21)
[2022-07-27] MEDS: AMLODIPINE 2.5 MG TAB PO SCH (10:21)
[2022-07-27] MEDS: DOXAZOSIN 2 MG TAB PO SCH (10:21)
[2022-07-27] MEDS: CALCITROL 0.25 MCG CAP PO SCH (10:22)
[2022-07-27] MEDS: INSULIN GLARGINE 100 UNIT/ML SQ SCH (10:22)
[2022-07-27] MEDS: FOLIC ACID 1 MG TABLET PO SCH (10:22)
[2022-07-27] MEDS: INSULIN LISPRO 100 UNIT/1 ML SQ SCH ×2 (10:27→13:12)
[2022-07-27 12:36] VITALS: BP 144/62; TEMP 97.6
--- NOTE | 2022-07-27 13:16 | PN ---
Date of Progress Note: 07/27/2022 Subjective: The patient doing well. No shortness of breath. Still wheezing. Physical Examination: Vital Signs: Blood pressure 168/72, pulse of 76. Chest: Wheezing bilateral. Heart: S1, S2. Regular. Abdomen: Soft, nontender. Extremities: Plus edema. Neurologic: Alert. No focality. Laboratory Data: Hemoglobin 8.8. Sodium 141, potassium 3.7, bicarb 33, BUN 67, creatinine 2.4, calcium 7.4, phosphorus 3.7, magnesium 2.7. Current Medications: The patient on include Lovenox, albuterol, Zetia, doxazosin, metoprolol, calcium acetate, Tylenol, folic acid, pantoprazole. Assessment And Plan: 1. Acute kidney injury secondary to cardiorenal. I am going to go ahead and resume Lasix orally 40 mg and we will follow up. 2. Respiratory failure secondary to over volume/obstructive sleep apnea as above. 3. FSGS. Continue prednisone. Follow up with Dr. Loaiza. 4. Hypokalemia. We will supplement. 5. Over volume. We will resume Lasix. 6. Hypertension, controlled, not optimal. We will resume Lasix. We will follow up the response. time spend exam the patient face to face , reviewing data lab and radiology placing order , discussing with iván member nursing and hospitalist >35 min ISA Voice ID: [id number] Report ID: [id number] MTDD
--- NOTE | 2022-07-27 15:46 | P.DS ---
Admission Date: 07/21/22 Discharge Date: 07/27/22 Primary Care Provider: Fadia Disposition: DC HOME/HOME HEALTH CARE Reason for Admission: Anasarca Consultations: Nephrology -Dr. Calix / [facility] Cardiology -Dr. Bhardwaj Brief History of Present Illness: 62yo F, PMH: HTN, IDDM2, hypothyroidism, RA, focal segmental glomera sclerosis Presented to the ED due to worsening swelling all over (anasarca). Patient was found to be significantly volume overloaded with 4+ pitting edema. 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 As outpatient, her lasix was being weaned down due to conc ping for impact on renal function / steroids. Nephrology and Cardiology were consulted. She was treated with IV lasix and diuresed well with improvement of her symptoms. She had brief worsening of renal function which lead to decreasing lasix dose. Her renal function improved and remained stable. Echocardiogram noted moderate aortic stenosis and moderate diastolic dysfunction. Reviewed with patient and her son. To continue with 40mg daily lasix - confirmed with Dr. Calix. TSH was noted to be higher than previous testing. Her levothyroxine was increased to 200mcg from 150mcg. To continue with 200mcg daily dosing. Prednisone titrated down to 30mg per nephrology as well. Otherwise, to continue home medications as prescribed. Follow up with Nephrology as scheduled in 2 weeks, with labs prior to appointment. Follow up with Cardiology in a few weeks. Vital Signs/Physical Exam: Temp Pulse Resp BP Pulse Ox 97.6 F 66 17 144/62 H 92 07/27/22 12:00 07/27/22 12:00 07/27/22 12:00 07/27/22 12:07/27/22 12:00 General: Alert, In no apparent distress, Oriented x3 HEENT: EOMI, Sclerae nonicteric Respiratory: Diminished, Expiratory wheezes, Other (Nonlabored respirations at rest /on room air) Cardiovascular: No edema, Regular rate/rhythm, Systolic murmur (3/6, systolic) Gastrointestinal: Soft and benign, Non-distended, No tenderness Musculoskeletal: No contractures, No tenderness Integumentary: No rashes, No significant lesion Neurological: Normal speech, Normal strength at 5/5 x4 extr, Normal affect Laboratory Data at Discharge: WBC 5.60 K/uL (4.3-10.9) 07/27/22 05:27 Hgb 8.8 g/dL (12.0-15.0) L 07/27/22 05:27 Hct 26.1 % (36.0-45.0) L 07/27/22 05:27 Plt Count 114 K/uL (152-406) L 07/27/22 05:27 Sodium 141 mmol/L (136-145) 07/27/22 05:27 Potassium 3.7 mmol/L (3.5-5.1) 07/27/22 05:27 BUN 67 mg/dL (7-18) H 07/27/22 05:27 Creatinine 2.45 mg/dL (0.55-1.02) H 07/27/22 05:27 Glucose 102 mg/dL (74-106) 07/27/22 05:27 Phosphorus 3.7 mg/dL (2.5-4.9) 07/27/22 05:27 Magnesium 2.7 mg/dL (1.6-2.4) H 07/27/22 05:27 Total Bilirubin 0.3 mg/dL (0.2-1.0) 07/21/22 16:12 AST 25 U/L (15-37) 07/21/22 16:12 ALT 42 U/L (13-56) 07/21/22 16:12 Alkaline Phosphatase 105 U/L (45-117) 07/21/22 16:12 Triglycerides 84 mg/dL (<150) 07/22/22 04:11 Cholesterol 185 mg/dL (<200) 07/22/22 04:11 HDL Cholesterol 82 mg/dL (40-60) H 07/22/22 04:11 Cholesterol/HDL Ratio 2.26 07/22/22 04:11 Home Medications: Fenofibrate,Micronized [Fenofibrate] 54 mg PO DAILY 01/03/22 Folic Acid 1 mg PO DAILY 01/03/22 Metoprolol Tartrate 25 mg PO BID 01/03/22 Mv-Mn/Iron/Folic Acid/Herb 190 [Vitamin D3 Complete Caplet] 50,000 unit PO SEECOM 01/03/22 [place]-3/Dha/Epa/Fish Oil [Nuretin Softgel] 1 cap PO DAILY 01/03/22 Pantoprazole [Protonix Tab*] 1 tab PO DAILY 01/03/22 Insulin Aspart [Novolog Flexpen] 22 units SQ SEECOM 01/04/22 Insulin Detemir [Levemir] 40 units SQ DAILY WITH BREAKFAST 01/04/22 Magnesium Oxide [Mag 0X*] 400 mg PO BID #60 tab 01/05/22 Amlodipine [Norvasc*] 2.5 mg PO DAILY 30 Days #30 tab 06/02/22 Hydralazine HCl [Apresoline] 50 mg PO TID 30 Days #90 tab 06/02/22 Calcitrol [Rocaltrol*] 0.5 mcg PO M,W,F 07/21/22 Doxazosin [Cardura*] 1 mg PO BID 07/21/22 Dulaglutide [Trulicity] 1.5 mg SQ MO 07/21/22 Hydroxychloroquine [Plaquenil*] 200 mg PO DAILY 07/21/22 Furosemide [Lasix*] 40 mg PO DAILY tab 07/27/22 Levothyroxine [Synthroid*] 0.2 mg PO DAILYAC 30 Days #60 tab 07/27/22 predniSONE [Prednisone*] 30 mg PO DAILY 30 Days #45 tab 07/27/22 New Medications: predniSONE [Prednisone*] 30 mg PO DAILY 30 Days #45 tab Levothyroxine [Synthroid*] 0.2 mg PO DAILYAC 30 Days #60 tab Physician Discharge Instructions: Problem List 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 As outpatient, her lasix was being weaned down due to concern for impact on renal function / steroids. Nephrology and Cardiology were consulted. She was treated with IV lasix and diuresed well with improvement of her symptoms. She had brief worsening of renal function which lead to decreasing lasix dose. Her renal function improved and remained stable. Echocardiogram noted moderate aortic stenosis and moderate diastolic dysfunction. Reviewed with patient and her son. To continue with 40mg daily lasix - confirmed with Dr. Calix. TSH was noted to be higher than previous testing. Her levothyroxine was inc reased to 200mcg from 150mcg. To continue with 200mcg daily dosing. Prednisone titrated down to 30mg per nephrology as well. Otherwise, to continue home medications as prescribed. Follow up with Nephrology as scheduled in 2 weeks, with labs prior to appointment. Follow up with Cardiology in a few weeks. Diet: ADA Followup: Nicolette Burnett MD [Primary Care Provider] - (Please follow up with primary care provider in 1-2 weeks, please call to schedule an appointment) Time spent managing pt's care (in minutes): 45
[2022-07-28] MEDS ORDERED: FUROSEMIDE 40 MG TABLET PO SCH (09:00)
== END 2022-07-27 15:54 | disposition home health service (06) | DRG 291 ==
LOC: ER 15:03 → ERHOLD 19:01 → 4TH 20:40
PROVIDERS: ADMIT Internal Medicine; ATTEND Hospitalist
DX: I13.0 Hypertensive heart and chronic kidney disease with heart failure and stage 1 through stage 4 chronic kidney disease, or unspecified chronic kidney disease (principal); I50.33 Acute on chronic diastolic (congestive) heart failure; J96.90 Respiratory failure, unspecified, unspecified whether with hypoxia or hypercapnia; J44.1 Chronic obstructive pulmonary disease with (acute) exacerbation; N17.9 Acute kidney failure, unspecified; N18.4 Chronic kidney disease, stage 4 (severe); Z68.41 Body mass index [BMI] 40.0-44.9, adult; E66.01 Morbid (severe) obesity due to excess calories; E11.22 Type 2 diabetes mellitus with diabetic chronic kidney disease; E11.65 Type 2 diabetes mellitus with hyperglycemia; E11.21 Type 2 diabetes mellitus with diabetic nephropathy; D63.1 Anemia in chronic kidney disease; N26.9 Renal sclerosis, unspecified; M81.0 Age-related osteoporosis without current pathological fracture; E83.51 Hypocalcemia; I35.0 Nonrheumatic aortic (valve) stenosis; M06.9 Rheumatoid arthritis, unspecified; E87.6 Hypokalemia; E89.0 Postprocedural hypothyroidism; G47.33 Obstructive sleep apnea (adult) (pediatric); E83.39 Other disorders of phosphorus metabolism; Z88.5 Allergy status to narcotic agent; Z88.1 Allergy status to other antibiotic agents; Z79.4 Long term (current) use of insulin; Z79.52 Long term (current) use of systemic steroids; Z79.890 Hormone replacement therapy; Z79.899 Other long term (current) drug therapy; Z20.822 Contact with and (suspected) exposure to COVID-19
CPT/HCPCS: 0240U; 36415; 71045; 71046; 80048; 80053; 80061; 80069; 82306; 82550; 82570; 82947; 83036; 83540; 83735; 83880; 83935; 83970; 84100; 84132; 84156; 84300; 84439; 84443; 84466; 84484; 85025; 85027; 86038; 86160; 86225; 93005; 93306; 94640; 94760; 96374; 99285; J1650; J1815; J1940; J7512; J7613; P9047; Q5106

== ENCOUNTER 2022-07-31 23:22 | Inpatient (IN) | payer OTHER ==
--- OUTSIDE RECORDS SUMMARY | 2022-07-31 23:41 | XMS REPORT | Continuity of Care Document ---
:1960 Author Organization [facility] [facility] t Address [address] [place] [place] [address] Care Team Providers Name Role Phone Ede Stack Primary Care Physician SYSTEM, PROVIDER NOT IN Attending Clinician Unavailable BHANU GOMEZ Attending Clinician Unavailable MARII CROSS Attending Clinician Unavailable Doctor Unassigned, [place] Attending Clinician Unavailable [place], Attending Clinician Unavailable NOELLE BURNETT Attending Clinician Unavailable TIANA BARTHOLOMEW Attending Clinician Unavailable Sophia SAUER, Pcp Attending Clinician Unavailable Roxane Kumar MD Attending [...] Attending Clinician Noelle Burnett MD Attending Clinician [phone] Shoaib LOMELI, Suze Attending Clinician Unavailable Waleska GOULD, Richa Attending Clinician Unavailable Thalia LOMELI, Jazmine Attending Clinician Unavailable KIM RAND Attending Clinician Unavailable Keyona SAUER, Kim Camacho Attending Clinician Angeles THOMPSON, Stephany Attending Clinician Unavailable Lola SAUER, Roxann Attending Clinician Thiago SAUER, Tiana Attending Clinician Shalonda Rojo LVN Attending Clinician Unavailable Gloria Chamberlain Attending Clinician COLT ASTORGA Admitting Clinician Unavailable Harjeet Burleson MD Admitting Clinician NOELLE BURNETT Admitting Clinician Unavailable Payers Payer Name Policy Type Policy Number Effective Date Expiration Date Tc byers CIGNA OPEN [id number] 2015 2021 ACCESS/OPEN 00:00:00 00:00:00 ACCESS PLUS NENO SUPERIOR [id number] 2021 HEALTH PLAN 00:00:00 CIGNA II [id number] 2020 00:00:00 Problems Condition Condition Condition Status [...] ia ia 6-22 ity of 00:00: [address] Obesity Obesity Disease Active Univers (BMI (BMI 6-22 ity of 30-39.9) 30-39.9) 00:00: [address] M65.9 - M65.9 - Diagnosis Active 2018-02-27 Memoria SYNOVITIS SYNOVITIS 02-21 09:58:00 l AND AND 00:01: [place] [address] TENOSYNOVI TENOSYNOVI 00 TIS, U TIS, U Active 02/21/2018 LOVELY Briggs Generalize Generaliz Problem Active 2018-09-16 Memoria d aches ed aches 02-07 12:47:59 l and pains and pains 00:00: Jyoti anthony (finding) (finding) 00 Active 02/07/2011 Problem 09/16/2018 LOVELY Briggs Diabetes Diabetes Problem Active 2018-09-16 Memoria mellitus mellitus 02-04 12:47:59 l (disorder) (disorder) 00:00: Bao lala Active 00 02/04/2011 Problem 09/16/2018 LOVELY Briggs Hyperlipid Problem Active 2018-09-16 M emoria emia(Confi Hyperlipid 02-04 12:47:59 l rmed) emia(Confi 00:00: [place] n rmed) 00 Active 02/04/2011 Problem 09/16/2018 LOVELY Briggs Hypertensi Problem Active 2018-09-16 M emoria ve Hypertensi 02-04 12:47:59 l disorder, ve 00:00: Michael systemic disorder, 00 arterial systemic (disorder) arterial (disorder) Active 02/04/2011 Problem 09/16/2018 LOVELY Briggs No known No known Disease Unive rs active active ity of problems problems [facility] Arthritis Arthritis Problem Active 2018-09-16 Memoria (disorder) (disorder) 12:47:59 l Active [place] Problem 09/16/2018 LOVELY Briggs Diabetes Diabetes Problem Active 2018-09-16 Memoria mellitus mellitus 12:47:59 l type 2 type 2 [place] (disorder) (disorder) Active Problem 09/16/2018 Automatic ally added by Discern Expert with order of Add Problem Diabetes Type II on November 10, 2017 10:20:40 CDT with order ID: [id number] 7.0 entered by Ramon Grayson. LOVELY Briggs Morbid Morbid Problem Active 2018-09-16 Parag clovis obesity obesity 12:47:59 l (disorder) (disorder) He rmann Active Problem 09/16/2018 LOVELY Briggs Pain in Pain in Problem Active 2018-09-16 Me moria lower limb lower limb 12:47:59 l (finding) (finding) Herm anthony Active Problem 09/16/2018 LOVELY Briggs Paresthesi Paresthes Problem Active 2018-09-16 Memoria a of hand ia of hand 12:47:59 l (finding) (finding) Herm anthony Active Problem 09/16/2018 LOVELY Briggs Posterior Problem Active 2018-09-16 Me moria interosseo Posterior 12:47:59 l us nerve interosseo Herm anthony lesion us nerve (disorder) lesion (disorder) Active [facility] 09/16/[facility] 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 Health Alcohol Comment History [facility] Alcohol Std Drinks History [facility] Alcohol Binge Exposure to 2022-05-28 2022-06-07 Not sure [facility] SARS-CoV-2 00:00:00 09:50:00 (event) Alcohol intake 2022-06-07 2022-06-07 0 [facility]d [facility] 00:[facility]:00 00:00:00 Tobacco use and 2021-12-06 2021-12-06 Smokeless tobacco Un iversity of exposure 00:00:00 00:00:00 non-user [place] [facility] History SDMD 2021-01-21 2021-01-21 1 [facility] Alcohol Frequency 00:00:00 00:00:00 Sex [birth year] At [birth year] [facility] Smoking Status Start Date Stop Date Source Tobacco smoking consumption [facility] [place] [facility] Social History [facility] Medications Ordered Filled Start Stop Current Ordering Indication Dosage Frequency Signature Comments Components Source Medication Medication Date Date Medication? Clinician (SIG) Name Name Taco 2021-06 Yes [id number] 40U QD Inject 40 UT FlexTouch 2-27 Units Health 100 UNIT/ML 00:00: under the injection 00 skin 1 (one) time each day. Semaglutide 2021-06 Yes [id number] 1mg Inject 1 UT , 1 2-27 mg under Health MG/DOSE, 00:00: the skin 1 (Ozempic, 1 00 (one) time MG/DOSE,) 4 per week. MG/3ML solution pen-injecto r insulin 2021-06- Yes [id number] 22U Inject 22 UT aspart 2-27 12-28 Units Health (NovoLOG) 00:00: 05:59 under the 100 UNIT/ML 00 :00 skin in injection the morning and 22 Units at noon and 22 Units in the evening. Inject with meals. OneTouch 2021-06 Yes [id number] TESTING 3 UT Verio test 2-23 TIMES Health strip 00:00: DOLLY;Y 00 Carboxymeth 2021-06 No Administer UT ylcellulose 06-14 into Health [...] SOFTENER/LA XATIVE PO) traMADol 2021-06 Yes 50mg Q.[id number] Take 50 mg UT (Ultram) 50 06-14 [id number] by mouth 3 Health MG tablet 14:33: 3D (three) 14 times a day. valsartan 2021-06 Yes 320mg QD Take 320 UT (Diovan) 03 mg by Health 160 MG 14:33: mouth 1 tablet 14 (one) time each day. tiZANidine 2021-06 Yes 4mg Q.5D Take 4 mg UT (Zanaflex) 03 by mouth 2 Hea lth 4 MG 14:33: (two) capsule 14 times a day. furosemide 2021-06 Yes 40mg QD Take 40 mg U T (Lasix) 40 06-14 by mouth 1 Hea lth MG tablet [...] SOFTENER/LA XATIVE PO) traMADol 2021-06 Yes 50mg Q.[id number] Take 50 mg UT (Ultram) 50 -03 [id number] by mouth 3 Health MG tablet 14:33: [...] Take 40 mg U T (Lasix) 40 -03 by mouth 1 Hea lth MG tablet 14:33: (one) time 14 each day. bimatoprost 2021-06 Yes 1[drp] 1 drop UT (Lumigan) 1-03 every Health 0.01 % 14:33: night. ophthalmic 14 solution gabapentin 2021-06 Yes 300mg Take 300 UT (Neurontin) 1-03 mg by Health 300 MG 14:33: mouth. capsule 14 UNABLE TO 2021-06 Yes Med Name: UT FIND 1- Nuretin Health 14:33: Eye GTTS 14 hydroxychlo 2021-063- No [id number] 200mg QD Take 1 UT roquine 03 01-03 tablet Health (Plaquenil) 00:00: 05:59 (200 mg 200 MG 00 :00 total) by tablet mouth 1 (one) time each day. hydroxychlo 2021-06- No [id number] 200mg QD Take 1 UT roquine 06-14 tablet Health (Plaquenil) 00:00: 05:59 (200 mg 200 MG 00 :00 total) by tablet mouth 1 (one) time each day. Levemir Yes [id number] 45U QD Inject 45 UT FlexTouch 9-27 Units Health 100 UNIT/ML 00:00: under the injection 00 skin 1 (one) time each day. semaglutide Yes [id number] .5mg Inject 0.5 UT (Ozempic) 2 9-27 mg under Heal th MG/1.5ML 00:00: the skin 1 solution 00 (one) time pen-injecto per week. r Levemir Yes [id number] 45U QD Inject 45 UT FlexTouch 9-27 Units Health 100 UNIT/ML 00:00: under the injection 00 skin 1 (one) time each day. semaglutide Yes [id number] .5mg Inject 0.5 UT (Ozempic) 2 9-27 mg under Heal th MG/1.5ML 00:00: the skin 1 solution 00 (one) time pen-injecto per week. r insulin 2022- No [id number] 15U Inject 15 UT aspart 9-27 09-28 Units Health (NovoLOG) 00:00: 04:59 under the 100 UNIT/ML 00 :00 skin in injection the morning and 15 Units at noon and 15 Units in the evening. Inject with meals. insulin 2022- No [id number] 15U Inject 15 UT aspart 9-27 09-28 Units Health (NovoLOG) 00:00: 04:59 under the 100 UNIT/ML 00 :00 skin in injection the morning and 15 Units at noon and 15 Units in the evening. Inject with meals. insulin 2021- No [id number] 15U Inject 15 UT aspart 9-27 12-27 Units Health (NovoLOG) 00:00: 00:00 under the 100 UNIT/ML 00 :00 skin in injection the morning and 15 Units at noon and 15 Units in the evening. Inject with meals. Levemir 2021- No [id number] 45U QD Inject 45 UT FlexTouch 9-27 12-27 Units Health 100 UNIT/ML 00:00: 00:00 under the injection 00 :00 skin 1 (one) time each day. semaglutide 2021- No [id number] .5mg Inject 0.5 UT (Ozempic) 2 9-27 12-27 mg under Hea lth MG/1.5ML 00:00: 00:00 the skin 1 solution 00 :00 (one) time pen-injecto per week. r hydroCHLORO Yes UT thiazide 8-30 Health (Microzide) 00:00: 12.5 MG 00 capsule hydroCHLORO Yes UT thiazide 8-30 Health (Microzide) 00:00: 12.5 MG 00 capsule Levemir Yes [id number] 40U QD Inject 40 UT FlexTouch 8-16 Units Health 100 UNIT/ML 00:00: under the injection 00 skin 1 (one) time each day. insulin 2022- No [id number] 12U Inject 12 UT aspart 8-16 08-17 Units Health (NovoLOG) 00:00: 04:59 under the 100 UNIT/ML 00 :00 skin in injection the morning and 12 Units at noon and 12 Units in the evening. Inject with meals. Levemir 2021- No [id number] 40U QD Inject 40 UT FlexTouch 8-16 09-27 Units Health 100 UNIT/ML 00:00: 00:00 under the injection 00 :00 skin 1 (one) time each day. insulin 2021- No [id number] 12U Inject 12 UT aspart 8-16 09-27 Units Health (NovoLOG) 00:00: 00:00 under the 100 UNIT/ML 00 :00 skin in injection the morning and 12 Units at noon and 12 Units in the evening. Inject with meals. pantoprazol Yes 1{tbl} 1 tablet. UT e 7 Health (ProtoNix) 00:00: 40 MG EC 00 [...] SOFTENER/LA XATIVE PO) traMADol 0 Yes 50mg Q.[id number] Take 50 mg UT (Ultram) 50 12-30 [id number] by mouth 3 Health MG tablet 10:15: [...] 2022-0 Yes 1[drp] 1 drop UT (Lumigan) 12-30 every Health 0.01 % 10:15: night. ophthalmic 23 solution tolterodine 2-0 Yes TAKE 1 UT LA (Detrol 12-30 CAPSULE Health LA) 4 MG 24 10:15: DAILY hr capsule 23 Sennosides- 2-0 Yes QD Take by UT Docusate 12-30 mouth 1 Health Sodium 10:15: (one) time (STOOL 23 each day. SOFTENER/LA XATIVE PO) traMADol 2022-0 Yes 50mg Q.[id number] Take 50 mg UT (Ultram) 50 - [id number] by mouth 3 Health MG tablet 10:15: [...] Take 40 mg U T (Lasix) 40 -21 by mouth 1 Hea lth MG tablet [...] SOFTENER/LA XATIVE PO) traMADol 2021-0 Yes 50mg Q.[id number] Take 50 mg UT (Ultram) 50 - [id number] by mouth 3 Health MG tablet 10:15: [...] 2021-0 Yes QD Take by UT Carbonate - [...] SOFTENER/LA XATIVE PO) traMADol 2-0 Yes 50mg Q.[id number] Take 50 mg UT (Ultram) 50 12-30 [id number] by mouth 3 Health MG tablet 10:15: 3D (three) 23 times a day. valsartan 2-0 Yes 320mg QD Take 320 UT (Diovan) [...] Health (Vitamin 00:00: D3) 1.25 MG 00 (71740 UT) capsule hydrALAZINE 2021-0 Yes UT (Apresoline 12-27 Health ) 25 MG 00:00: tablet 00 Cholecalcif 2021-0 Yes UT maya 12-27 Health (Vitamin 00:00: D3) 1.25 MG 00 (15164 UT) capsule hydrALAZINE 2021-0 Yes UT (Apresoline 12-27 Health ) 25 MG 00:00: tablet 00 Cholecalcif 202-0 Yes UT maya 18 Health (Vitamin 00:00: D3) 1.25 MG 00 (71929 UT) capsule hydrALAZINE 2022-0 Yes UT (Apresoline 718 Health ) 25 MG 00:00: tablet 00 Cholecalcif 202-0 Yes UT maya 18 Health (Vitamin 00:00: D3) 1.25 MG 00 (35038 UT) capsule hydrALAZINE 2022-0 Yes UT (Apresoline 718 Health ) 25 MG 00:00: tablet 00 Cholecalcif 202-0 Yes UT maya 7-18 Health (Vitamin 00:00: D3) 1.25 MG 00 (23899 UT) capsule hydrALAZINE 2021-0 Yes UT (Apresoline 7-18 Health ) 25 MG 00:00: tablet 00 Cholecalcif 2021-0 Yes UT maya 7-18 Health (Vitamin 00:00: D3) 1.25 MG 00 (12361 UT) capsule hydrALAZINE 0 Yes UT (Apresoline 7-18 Health ) 25 MG 00:00: tablet 00 glucose 2021-0 Yes [id number] TEST THREE UT blood 7-15 TIMES A Health (OneTouch 00:00: DAY Verio) test 00 strip glucose 2021-0 Yes [id number] TEST THREE UT blood 7-15 TIMES A Health (OneTouch 00:00: DAY Verio) test 00 strip glucose 2021-0 Yes [id number] TEST THREE UT blood 7-15 TIMES A Health (OneTouch 00:00: DAY Verio) test 00 strip glucose 2021-0 Yes [id number] TEST THREE UT blood 7-15 TIMES A Health (OneTouch 00:00: DAY Verio) test 00 strip glucose 2021-0 Yes [id number] TEST THREE UT blood 7-15 TIMES A Health (OneTouch 00:00: DAY Verio) test 00 strip glucose 2021-0 Yes [id number] TEST THREE UT blood 7-15 TIMES A [...] Yes 1{tbl} Take 1 Un shayna in -08 tablet by ity of (JARDIANCE) 02:53: mouth [...] 7 le} capsule by ity of (CHOLEBRINE 02:53: mouth [place] ORAL) 01 daily. Medical Branch doxepin 10 Yes 10mg Take 10 mg U nivers mg capsule 08 by mouth ity o f 02:53: every [place] 01 evening as Medical needed for Branch Insomnia. gabapentin Yes 300mg Take 300 Un shayna 300 mg 7-08 mg by ity of capsule 02:53: mouth 2 [place] 01 (two) Medical times Branch daily. empaglifloz Yes 1{tbl} Take 1 Un shayna in -08 tablet by ity of (JARDIANCE) 02:53: mouth [place] 25 mg Tab 01 daily. Medical Branch foLIC acid 2022- No [id number] 4mg Take 4 Univers 1 mg tablet 12-16 08- tablets by i ty of 00:00: 04:59 mouth [place] 00 :00 daily for Medical 30 days. Branch foLIC acid 2021- No [id number] 4mg Take 4 Univers 1 mg tablet 12-16 tablets by i ty of 00:00: 04:59 mouth [place] 00 :00 daily for Medical 30 days. Branch foLIC acid 2021- No [id number] 4mg Take 4 Univers 1 mg tablet 12-16 tablets by i ty of 00:00: 04:59 mouth [place] 00 :00 daily for Medical 30 days. Branch foLIC acid 2021- No [id number] 4mg Take 4 Univers 1 mg tablet 12-16 tablets by i ty of 00:00: 04:59 mouth [place] 00 :00 daily for Medical 30 days. Branch foLIC acid 2021- No [id number] 4mg Take 4 Univers 1 mg tablet 12-16 tablets by i ty of 00:00: 04:59 mouth [place] 00 :00 daily for Medical 30 days. Branch LEVOTHYROXI Yes None Univer s NE 200 MCG 7- Entered ity of ORAL TAB 14:54: [address] CALCITRIOL Yes None Univers 0.5 MCG 12-15 Entered ity of ORAL CAP 14:54: [address] FOLTRIN Yes None Univers ORAL - Entered ity of 14:54: [address] AMLODIPINE Yes None Univers BESYLATE - Entered ity of ORAL 14:54: [address] dapaglifloz Yes 10mg Take 10 mg Univers in 12-15 by mouth ity of (FARXIGA) 14:54: daily. [place] 10 mg 28 Medical tablet Branch dulaglutide [...] 7- Entered ity of ORAL TAB 14:54: [place] [address] Medical Branch CALCITRIOL Yes None Univers 0.5 MCG 7 Entered ity of ORAL CAP 14:54: [place] [address] Medical Branch FOLTRIN Yes None Univers ORAL 7 Entered ity of 14:54: [place] [address] Medical Branch AMLODIPINE Yes None Univers BESYLATE 7 Entered ity of ORAL 14:54: [place] [address] Medical Branch dapaglifloz Yes 10mg Take 10 [...] hydralazine Yes Take by Uni vers HCl 7- mouth. ity of (HYDRALAZIN 14:54: [place] E [...] 7-06 Entered ity of ORAL TAB 14:54: [address] CALCITRIOL Yes None Univers 0.5 MCG 7-06 Entered ity of ORAL CAP 14:54: [address] FOLTRIN Yes None Univers ORAL 7-06 Entered ity of 14:54: [address] AMLODIPINE Yes None Univers BESYLATE 7-06 Entered ity of ORAL 14:54: [address] LEVOTHYROXI Yes None Univer s [place] 200 MCG 7-06 Entered ity of ORAL TAB 14:54: [address] CALCITRIOL Yes None Univers 0.5 MCG 7-06 Entered ity of ORAL CAP 14:54: [address] FOLTRIN Yes None Univers ORAL 7-06 Entered ity of 14:54: [address] AMLODIPINE Yes None Univers BESYLATE 7-06 Entered ity of ORAL 14:54: [address] LEVOTHYROXI Yes None Univer s [place] 200 MCG 7 Entered ity of ORAL TAB 14:54: [address] CALCITRIOL Yes None Univers 0.5 MCG 12-15 Entered ity of ORAL CAP 14:54: [address] FOLTRIN Yes None Univers ORAL 7- Entered ity of 14:54: [address] AMLODIPINE Yes None Univers BESYLATE 12-15 Entered ity of ORAL 14:54: [address] LEVOTHYROXI Yes None Univer s [place] 200 MCG 7- Entered ity of ORAL TAB 14:54: [address] CALCITRIOL Yes None Univers 0.5 MCG 7- Entered ity of ORAL CAP 14:54: [address] FOLTRIN Yes None Univers ORAL - Entered ity of 14:54: [address] AMLODIPINE Yes None Univers BESYLATE 12-15 Entered ity of ORAL 14:54: [address] pantoprazol Yes 40mg 40 mg, Univ ers e 12-15 Oral, ity of (PROTONIX) 14:45: DAILY, [place] EC tablet 00 First dose Medi abdon 40 mg on Mon Branch 12/15/21 at 0945, Until Discontinu ed, Routine insulin Yes 5U 5 Units, Univer s lispro 12-15 Subcutaneo ity of (human) 13:00: us, TID [place] (HumaLOG 00 MEALS, Medical U-100) First dose Branch injection 5 (after Units last modificati on) on [facility] 12/15/21 at 0800, Until Discontinu ed, Routine PREDNISONE 2021- No None Univer s 10 MG ORAL 12-15 Entered ity o f TAB 11:40: 00:00 [place] 13 :00 [facility] HYDROCHLORO 2021- No None Unive rs THIAZIDE 25 12-15 Entered ity of MG ORAL TAB 11:40: 00:00 [place] 13 :00 [facility] METHOTREXAT 2021- No None Unive rs E SODIUM 12-15 Entered ity of 2.5 MG ORAL 11:40: 00:00 [place] TAB 13 :00 [facility] FOLIC ACID 2021- No None Univer [...] 00:00 [place] 13 :00 Medical Branch losartan-hy No 1{tbl} Take 1 U nivers drochloroth 12-15 tablet by it y of iazide 11:40: 00:00 mouth [place] 100-12.5 mg 13 :00 daily. Medica l per tablet Branch hydrALAZINE 25mg Take 25 mg Univers 25 mg [...] Discontinu ed, Routine Levemir Yes UT FlexTouch 12-15 Health 100 UNIT/ML 00:00: injection 00 Levemir [...] skin 1 (one) time each day. metoprolol 2021-2021- No 12.5mg Take 12.5 UT tartrate 12-15 08-06 mg by Health (Lopressor) 00:00: 04:59 mouth. 25 MG 00 :00 tablet pantoprazol 2021- No 1{tbl} QD Take 1 U T e 12-15- tablet by [place] [facility] (ProtoNix) 00:00: 04:59 mouth 1 40 MG EC 00 :00 (one) time tablet each day. pantoprazol 2021- No [id number] 40mg Take 1 Univers e 40 mg EC 12-15- tablet by ity of tablet 00:00: 04:59 mouth [place] 00 :00 daily for Medical 30 days. Branch metoprolol 2021-2021- No [id number] 12.5mg Take 0.5 Univers tartrate 25 12-15-06 tablets by i ty of mg tablet 00:00: 04:59 mouth 2 [place] 00 :00 (two) Medical times Branch daily for 30 days. pantoprazol 2021- No [id number] 40mg Take 1 Univers e 40 mg EC 12-15- tablet by ity of tablet 00:00: 04:59 mouth [place] 00 :00 daily for Medical 30 days. Branch metoprolol 2021- No [id number] 12.5mg Take 0.5 Univers tartrate 25 12-15- tablets by i ty of mg tablet 00:00: 04:59 mouth 2 [place] 00 :00 (two) Medical times Branch daily for 30 days. Insulin 2021- No [id number] 12U inject 12 Univers Detemir 12-15-06 Units ity of (LEVEMIR 00:00: 04:59 under the [place] as FLEXTOUCH 00 :00 skin 2 Medical U-100 (two) Branch INSULN) 100 times unit/mL (3 daily for mL) 30 days. injection pantoprazol 2021- No [id number] 40mg Take 1 Univers e 40 mg EC 12-15 tablet by ity of tablet 00:00: 04:59 mouth [place] 00 :00 daily for Medical 30 days. Branch metoprolol 2021- No [id number] 12.5mg Take 0.5 Univers tartrate 25 12-15- tablets by i ty of mg tablet 00:00: 04:59 mouth 2 [place] 00 :00 (two) Medical times Branch daily for 30 days. Insulin 2021- No [id number] 12U inject 12 Univers Detemir 12-15-06 Units ity of (LEVEMIR 00:00: 04:59 under the [place] as FLEXTOUCH 00 :00 skin 2 Medical U-100 (two) Branch INSULN) 100 times unit/mL (3 daily for mL) 30 days. injection pantoprazol 2021- No [id number] 40mg Take 1 Univers e 40 mg EC 12-15 tablet by ity of tablet 00:00: 04:59 mouth [place] 00 :00 daily for Medical 30 days. Branch metoprolol 2021- No [id number] 12.5mg Take 0.5 Univers tartrate 25 12-15-06 tablets by i ty of mg tablet 00:00: 04:59 mouth 2 [place] 00 :00 (two) Medical times Branch daily for 30 days. Insulin 2021- No [id number] 12U inject 12 Univers Detemir 12-15- Units ity of (LEVEMIR 00:00: 04:59 under the [place] as FLEXTOUCH 00 :00 skin 2 Medical U-100 (two) Branch INSULN) 100 times unit/mL (3 daily for mL) 30 days. injection pantoprazol No [id number] 40mg Take 1 Univers e 40 mg EC 12-15 tablet by ity of tablet 00:00: 04:59 mouth [place] 00 :00 daily for Medical 30 days. Branch metoprolol No [id number] 12.5mg Take 0.5 Univers tartrate 25 12-15 tablets by i ty of mg tablet 00:00: 04:59 mouth 2 [place] 00 :00 (two) Medical times Branch daily for 30 days. Insulin No [id number] 12U inject 12 Univers Detemir 12-15 Units ity of (LEVEMIR 00:00: 04:59 under the [place] as FLEXTOUCH 00 :00 skin 2 Medical U-100 (two) Branch INSULN) 100 times unit/mL (3 daily for mL) 30 days. injection lidocaine No [id number] 10mL Take 10 mL Univers 2% viscous 12-15 by mouth ity of 2 % 00:00: 04:59 every 6 [place] solution 00 :00 (six) Medical hours as Branch needed for Oral mucosal pain for up to 7 days. maalox:diph No [id number] 15mL Swish and Univers enhydrAMINE 12-15 spit out ity of :lidocaine 00:00: 04:59 15 mL 4 [place] as 2 % viscous 00 :00 (four) Medica l 1:1:1 times Branch daily for 7 days. lidocaine No [id number] 10mL Take 10 mL Univers 2% viscous 12-15 by mouth ity of 2 % 00:00: 04:59 every 6 [place] solution 00 :00 (six) Medical hours as Branch needed for Oral mucosal pain for up to 7 days. maalox:diph No [id number] 15mL Swish and Univers enhydrAMINE 12-15 spit out ity of :lidocaine 00:00: 04:59 15 mL 4 [place] as 2 % viscous 00 :00 (four) Medica l 1:1:1 times Branch daily for 7 days. lidocaine 2021- No [id number] 10mL Take 10 mL Univers 2% viscous 12-15 by mouth ity of 2 % 00:00: 04:59 every 6 [place] solution 00 :00 (six) Medical hours as Branch needed for Oral mucosal pain for up to 7 days. maalox:diph 2021- No [id number] 15mL Swish and Univers enhydrAMINE 12-15 spit out ity of :lidocaine 00:00: 04:59 15 mL 4 [place] as 2 % viscous 00 :00 (four) Medica l 1:1:1 times Branch daily for 7 days. calcium No 2g 2 g, IV Univer s gluconate 2 12-14 Infusion, it y of g in NaCl 19:45: 22:36 Administer [place] 100 mL 00 :00 over 2 Medical (ISO-OSM) Hours, Branch RTU IV ONCE, 1 infusion 2 dose, On g Mon12/14/21 at 1445, Routine furosemide 40mg 40 mg, Univ ers (LASIX) 12-14 Slow IV ity of injection 04:15: 03:49 Push, [place] 40 mg 00 :00 ONCE, 1 Medical dose, On Branch Mon12/13/21 at 2315, Routine insulin No 10U 10 Units, [facility] ers glargine 12-14 Subcutaneo ity of (LANTUS 01:00: 22:45 us, BID, [place] U-100) 00 :25 First dose Medical injection (after Branch 10 Units last modificati on) on Mon12/13/21 at 2000, Until Discontinu ed, Routine insulin 2021- No [facility]U [facility] 12-13 Subcutaneo ity of (human) [...] at 0900, Until Discontinu ed, Routine calcium No 2g 2 g, IV Univer s gluconate 2 12-13 Infusion, it y of g in NaCl 01:00: 05:37 Q4H, 2 [place] 100 mL 00 :00 doses, Medical (ISO-OSM) First dose Bran ch RTU IV on Sun infusion 2 12/12/21 at g 2000, Last dose on Mon12/13/21 at 0000, Routine insulin No 18U 18 Units, Univ ers glargine 12-12 Subcutaneo ity of (LANTUS 14:00: 03:29 us, DAILY, [place] U-100) 00 :02 First dose Medical injection (after Branch 18 Units last modificati on) on Mon12/12/21 at 0900, Until Discontinu ed, Routine insulin No 15U 15 Units, Univ ers glargine 12-12 Subcutaneo ity of (LANTUS 01:00: 16:27 us, Q24H, [place] U-100) 00 :22 First dose Medical injection (after Branch 15 Units last modificati on) on 12/11/21 at 2000, Until Discontinu ed, Routine morpHINE (4 Yes 4mg 4 mg, Slow Univers mg/mL) 12-11 IV Push, ity of injection 4 04:27: Q4HPRN, [place] as mg 01 Starting Medical on Mon Branch 12/10/21 at 2327, Until Discontinu ed, Routine, Pain [...] of 1,000 mg in 00:30: 02:54 Piggyback, [place] NaCl 0.9% 00 :00 ONCE, 1 Medical [...] Routine insulin 2021- No 8U 8 Units, [facility] rs lispro 12-10 Subcutaneo ity of (human) 22:00: 16:27 us, TID [place] (HumaLOG 00 :22 MEALS, Medical U-100) First dose Branch injection 8 (after Units last modificati on) on Mon12/10/21 at 1700, Until Discontinu ed, Routine sulfur 2021- No [id number] 5mL 5 [facility], [facility] hexa[facility] 12-10 Intravenou i ty of e microsphr 17:00: 17:00 s, ONCE, 1 [place] (LUMASON) 00 :00 dose, On Medica l injection 5 Mon12/10/21 Br anch mL at 1200, Routine
political science faculty member approving Restricted medication : MARTHA INGRAM insulin 2021- No 20U 20 Units, [facility] ers glargine 12-10 Subcutaneo ity of (LANTUS 14:00: 19:29 us, DAILY, [place] U-100) 00 :04 First dose Medical injection (after Branch 20 Units last modificati on) on Mon12/10/21 at 0900, Until Discontinu ed, Routine D5W 0.9% No 1000mL at 60 Unive rs NaCl (NS) 12-10 07-03 mL/hr, ity [...] No 1000mg 1,000 mg, Univers en ADULT 12-0930 IV ity of (OFIRMEV) 23:00: 23:42 [place]fusion, [place] injection 00 :00 at 400 Medical 1,000 mg mL/hr Branch Administer over 15 Minutes, ONCE, 1 dose, On [place] 12/09/21 at 1800, Routine
Indicatio n: Non-periop erative Patient
Approved by: Per Policy (NPO Status) vancomycin No 1000mg 1,000 mg, Univers (VANCOCIN) 12-09 IV ity of 1,000 mg in 21:15: 18:10 Piggyback, [place] NaCl 0.9% 00 :47 Q24H ABX, Medic [...] ity of (human) 22:00: 19:29 us, TID [place] (HumaLOG 00 :04 MEALS, Medical U-100) First dose Branch injection 9 (after Units last modificati on) on Mon12/08/21 at 1700, Until Discontinu ed, Routine meropenem No 1000mg 1,000 mg, Univers (MERREM) 12-08 IV ity of 1,000 mg in 21:00: 13:42 [place], [place] NaCl 0.9% 00 :20 Q12H ABX, Medic al (NS) 50 mL First dose [facility] MINI-BAG on 12/08/21 at 1600, Until Discontinu ed, Administer over 3 Hours, 50 mL
Rest ricted use approved by: LCCIODETTE
Reason for Anti-Infec tive: Empiric Therapy for [...] ity of 1,000 mg in 20:30: 22:54 [place], [place] NaCl 0.9% 00 :00 ONCE, 1 [...] ity of (human) 17:00: 18:05 us, TID [place] (HumaLOG 00 :09 MEALS, Medical U-100) First [...] 2021- No Subcutaneo Uni vers Scale 12-07 0701 us, Q3H, ity of Insulin - 16:00: 19:29 First dose [place] Lispro 00 :04 (after Medical (HumaLOG) + last Branch Fsbg modificati Testing on) on Mon12/07/21 at 1100, Until Discontinu ed, Routine insulin 2021- No 15U 15 Units, Univ ers glargine 12-07 Subcutaneo ity of (LANTUS 14:00: 12:36 [place], ONCE, [place] U-100) 00 :00 1 dose, On Medical injection [facility] Branch 15 Units 12/07/21 at 0900, Routine insulin 2021- No 2U 2 Units, Unive rs lispro 12-07 Subcutaneo ity of (human) 13:00: 15:18 us, TID [place] (HumaLOG 00 :44 MEALS, Medical U-100) First dose Branch injection 2 (after Units last modificati on) on [facility] 12/07/21 at 0800, Until Discontinu ed, Routine KCL 2021- No 20meq 20 mEq, Univers (KLOR-CON 12-07 Oral, ity of M20) tablet 07:30: 06:40 ONCE, 1 [place] 20 mEq 00 :00 dose, On Medical [facility] 12/07/21 at 0230, Routine calcium 2021- No 2g 2 g, IV Univer s gluconate 2 12-07 Infusion, it y of g in NaCl 06:30: 08:50 ONCE, 1 [place] 100 mL 00 :00 dose, On Medical (ISO-OSM) [facility] RTU IV 12/07/21 at infusion 2 0130, g Routine acetaminoph No 650mg 650 mg, U nivers en 12-07 Oral, ity of (TYLENOL) 05:30: 06:38 ONCE, 1 [place] tablet 650 00 :00 dose, On Medic al mg [facility] 12/07/21 at 0030, Routine traMADoL Yes 50mg 50 mg, Univers (ULTRAM) 12-07 Oral, ity of tablet 50 02:58: Q6HPRN, [place] mg 00 Starting Medical on Mon [place] 12/06/21 at 2158, Until Discontinu ed, Routine, Pain (scale 4-6) calcium 2021- No 1g 1 g, IV Univer s gluconate 1 12-07 Infusion, it y of g in NaCl 00:30: 01:37 Administer [place] 50 mL 00 :00 over 60 Medical (ISO-OSM) Minutes, Branch RTU IV ONCE, 1 infusion 1 dose, On g [facility] 12/06/21 at 1930, Routine insulin 2021- No 15U 15 Units, Univ ers glargine 12-06 Subcutaneo ity of (LANTUS 23:26: 23:41 us, ONCE, [place] U-100) 00 :00 1 dose, On Medical injection Mon Branch 15 Units 12/06/21 at 1830, ALEXYS vancomycin 2021- No 1000mg 1,000 mg, Univers (VANCOCIN) 12-06 IV ity of 1,000 mg in 22:30: 00:02 [place], [place] NaCl 0.9% 00 :00 ONCE, 1 Medical (NS) 250 mL dose, On Bran ch VIAL-MATE Mon IV 12/06/21 at piggyback 1730, Administer over 60 Minutes, 250 mL
Reas on for Anti-Infec tive: Empiric Therapy for Suspected Infection< br>Empiric Therapy Site: Blood
D uration of therapy: 7 days calcium 2021- No 1g 1 g, IV Univer s gluconate 1 12-06 Infusion, it y of g in NaCl 16:45: 16:59 Administer [place] 50 mL 00 :00 over 60 Medical (ISO-OSM) Minutes, Branch RTU IV ONCE, 1 infusion 1 dose, On g Mon12/06/21 at 1145, Routine potassium 2021- No 20meq 20 mEq, IV Univers chloride 20 12-06 [facility], i ty of mEq/100 mL 15:45: 21:09 Q2H ES, 2 [place] (KCL) 20 00 :00 doses, Medical mEq/100 mL First dose [facility] RTU IVPB 20 on Mon mEq 12/06/21 at 1045, Last dose on Mon12/06/21 at 1245, 100 mL pantoprazol 2021- No 40mg 40 mg, Uni vers e 12-06 07-05 Slow IV ity of (PROTONIX) 13:00: 14:59 Push, [place] injection 00 :57 Q12H, Medical 40 mg First dose Branch on Mon12/06/21 at 0800, Until Discontinu ed calcium 2021- No 2g 2 g, IV Univer s gluconate 2 12-06 Infusion, it y of g in NaCl 09:00: 08:39 ONCE, 1 [place] 100 mL 00 :00 dose, On Medical (ISO-OSM) Mon Branch RTU IV 12/06/21 at infusion 2 0400, g Routine ceFEPIme No 1000mg 1,000 mg, U nivers (MAXIPIME) 12-06 IV ity of 1,000 mg in 06:30: 20:34 [facility] [place] NaCl 0.9% 00 :12 Q12H ABX, Medic al (NS) 50 mL First dose Bra nch MINI-BAG on Mon12/06/21 at 0130, Until Discontinu ed, Administer over 4 Hours, 50 mL
Reas on for Anti-Infec tive: Empiric Therapy for Suspected Infection< br>Empi jack Therapy Site: Blood
D uration of therapy: 7 days hydrocortis No 100mg 100 mg, U nivers one sod 12-06 Intravenou ity o f succ 03:06: 03:28 s, ONCE, 1 [place] (CORTEF) 00 :00 dose, On Medical injection [place] Branch 100 mg 12/05/21 at 2215, 2 mL maalox:diph Yes 15mL 15 mL, Univ ers enhydrAMINE 12-06 Oral ity of :lidocaine 01:15: ([place] 2 % viscous 00 Spit Out), Me dical 1:1:1 QID, First Branch (FIRST-MOUT dose HWASH BLM) (after oral last suspension modificati 15 mL on) on [place] 12/05/21 at 2015, Until Discontinu ed, Routine acetaminoph No 975mg 975 mg, U nivers en 12-06 Oral, ONCE ity of (TYLENOL) 00:48: 01:21 NOW, 1 [place] tablet 975 00 :00 dose, On Medic al mg [place] Branch 12/05/21 at 2000, Routine vancomycin No 1250mg 1,250 mg, Univers 1250 mg in 12-05 IV ity of NS 250 mL 19:45: 17:54 [place], [place] RTU IV 00 :52 Q24H, Medical Piggyback First dose Bran ch 1,250 mg on [place] 12/05/21 at 1445, Until Discontinu ed, Administer over 90 Minutes, 250 mL
Reas on for Anti-Infec tive: Empiric Therapy for Suspected Infection< br>Empi jack Therapy Site: Blood
D uration of therapy: 7 days ceFEPIme 2021- No 1000mg 1,000 mg, U nivers (MAXIPIME) 12-05 IV ity of 1,000 mg in 19:30: 20:59 [place], [place] NaCl 0.9% 00 :00 ONCE, 1 Medical (NS) 50 mL dose, On Branc h MINI-BAG [place] 12/05/21 at 1430, Administer over 30 Minutes, 50 mL
Reas on for Anti-Infec tive: Empiric Therapy for Suspected Infection< br>Empiric Therapy Site: Blood
D uration of therapy: 7 days insulin 2021- No 4U 4 Units, Unive rs lispro 12-05 Subcutaneo ity of (human) 14:15: 23:28 us, TID [place] (HumaLOG 00 :50 MEALS, Medical U-100) First dose Branch injection 4 (after Units last modificati on) on [place] 12/05/21 at 0915, Until Discontinu ed, Routine lisinopriL 2021- No 10mg 10 mg, Univ ers (PRINIVIL,Z 12-05 Oral, ity of ESTRIL) 14:00: 02:10 DAILY, [place] tablet 10 00 :28 First dose Medi abdon mg on [place] Branch 12/05/21 at 0900, Until Discontinu ed, Routine Sliding 2021- No Subcutaneo Uni vers Scale 12-04 us, [...] Last dose on 12/06/21 at 0900, Routine
political science faculty member approving Restricted medication : NORM ABAD [...] of 1,000 mg in 20:00: 18:18 [place], [place] NaCl 0.9% 00 :20 Q24H ABX, Medic [...] Medical (after Branch last modificati on) on Mon12/02/21 at 0900, Until Discontinu ed, Routine levothyroxi Yes 150ug 150 mcg, U nivers ne 12-02 Oral, ity of (SYNTHROID) 11:00: QAM-0600, [place] tablet 150 00 First dose Med ical mcg (after Branch last modificati on) on Mon12/02/21 at 0600, Until Discontinu ed, Routine KCL 2021- No 40meq 40 mEq, Univers (KLOR-CON 12-02 Oral, ity of M20) tablet 02:15: 01:22 ONCE, 1 [place] 40 mEq 00 :00 dose, On Mon12/01/21 at 2115, Routine maalox:diph 2021- No 15mL [...] 15mg 15 mg, Univ ers tablet 15 12-01-25 Oral, Q6H, ity of mg 23:00: 22:59 [...] 00 :36 First dose Medical injection on Wed Branch 35 Units 12/01/21 at 1130, Until [...] o f human 16:15: 15:14 , ONCE, [place] (HUMULIN R) 00 :00 1 dose, On [...] Oral, ity of (SYNTHROID) 15:00: 23:14 QA-0600, [place] tablet 200 00 :47 First dose Med ical mcg (after Branch last modificati on) on Mon12/01/21 at 1000, Until Discontinu ed, Routine foLIC acid No 1mg 1 mg, Unive rs (FOLATE) 12-01 Oral, ity of tablet 1 mg 14:00: 18:20 DAILY, [place] 00 :28 First dose Medical on Wed Branch 12/01/21 at 0900, Until Discontinu ed, Routine Sliding No Subcutaneo Uni vers Scale 12-01 , TID ity of Insulin - 13:30: 00:10 MEALS+HS, [place] Lispro 00 :45 First dose Medical (HumaLOG) + (after Branch Fsbg last Testing modificati on) on Mon12/01/21 at 0830, Until Discontinu ed, Routine ondansetron 0 Yes 4mg 4 mg, Slow Univers (ZOFRAN 12-01 IV Push, ity of (PF)) 10:14: Q6RNAlgodones, [place] injection 4 46 Starting Medi abdon mg on Mon Branch 12/01/21 at 0514, Until Discontinu ed, Routine, Nausea and Vomiting (N/V) acetaminoph Yes 650mg 650 mg, Un shayna en 12-01 Oral, ity of (TYLENOL) 10:14: Q6HPRNAlgodones, [place] tablet 650 36 Starting Medic al [...] 500 MG 00:00: tablet 00 naproxen 2021-0 2021- No [facility] (Naprosyn) 11-2703 Health 500 [...] Health 10 MG 00:00: capsule 00 doxepin 2-0 Yes UT (SINEquan) 11-16 Health 10 MG 00:00: capsule 00 naproxen 2021-0 2022- No 500mg 500 mg, Univ ers (NAPROSYN) [...]
D uration of Therapy: 10 days naproxen 2021- Yes [id number] 500mg Take 1 Un shayna (NAPROSYN) 11-10 tablet by ity of 500 mg 00:00: mouth 2 [place] tablet 00 (two) Medical times Branch daily with meals. naproxen 2021-0 Yes [id number] 500mg Take 1 Un shayna (NAPROSYN) 11-10 tablet by ity of 500 mg 00:00: mouth 2 [place] tablet 00 (two) Medical times Branch daily with meals. naproxen 2021-0 2021- No [id number] 500mg Take 1 U nivers (NAPROSYN) 11-10 tablet by ity of 500 mg 00:00: 00:00 mouth 2 [place] tablet 00 :00 (two) Medical times Branch daily with meals. amoxicillin 2021-0 2021- No [id number] 500mg Take 1 Univers 500 mg 11-10- capsule by ity of capsule 00:00: 04:59 mouth 3 [place] 00 :00 (three) Medical times Branch daily for 10 days. losartan 2022-0 Yes 100mg QD Take 100 [...] (one) time each day. methotrexat 2021- No [id number] PO, take UT e 2.5 MG 09-09 five Health tablet 00:00: 00:00 tablets 00 :00 Qweek, folic acid 2021- No [id number] 1mg QD Take 1 UT (Folvite) 1 07-12 tablet (1 He alth MG tablet 00:00: 04:59 mg total) 00 :00 by mouth 1 (one) time each day. calcitriol 2022- No [id number] .5ug QD Take 1 U T (Rocaltrol) 06-16 capsule Heal th 0.5 MCG 00:00: 05:59 (0.5 mcg capsule 00 :00 total) by mouth 1 (one) time each day. calcitriol 2022- No [id number] .5ug QD Take 1 U T (Rocaltrol) 06-16- capsule Heal th 0.5 MCG 00:00: 05:59 (0.5 mcg capsule 00 :00 total) by mouth 1 (one) time each day. calcitriol 2022- No [id number] .5ug QD Take 1 U T (Rocaltrol) 06-16- capsule Heal th 0.5 MCG 00:00: 05:59 (0.5 mcg capsule 00 :00 total) by mouth 1 (one) time each day. calcitriol 2022- No [id number] .5ug QD Take 1 U T (Rocaltrol) 06-16- capsule Heal th 0.5 MCG 00:00: 05:59 (0.5 mcg capsule 00 :00 total) by mouth 1 (one) time each day. calcitriol 2022- No [id number] .5ug QD Take 1 U T (Rocaltrol) 06-16 capsule Heal th 0.5 MCG 00:00: 05:59 (0.5 mcg capsule 00 :00 total) by mouth 1 (one) time each day. calcitriol No [id number] .5ug QD Take 1 U T (Rocaltrol) 06-16 capsule Heal th 0.5 MCG 00:00: 05:59 (0.5 mcg capsule 00 :00 total) by mouth 1 (one) time each day. traMADoL 100mg 100 mg, Univ ers (ULTRAM) 06-12 Oral, ity of tablet 100 14:45: 13:45 ONCE, 1 [place] mg 00 :00 dose, On Medical 06/12/21 Branch at 0845, Routine METHOCARBAM 2021- No None Unive rs OL 750 MG 06-12 Entered ity of ORAL TAB 07:44: 00:00 [place] 52 :00 [facility] PREDNISONE 0 Yes None Univers 10 MG ORAL 06-12 Entered ity of TAB 07:31: [address] METHOTREXAT Yes None Univer s E SODIUM 06-12 Entered ity of 2.5 MG ORAL 07:31: [address] PREDNISONE Yes None Univers 10 MG ORAL - Entered ity of TAB 07:31: [address] METHOTREXAT Yes None Univer s E SODIUM 06-12 Entered ity of 2.5 MG ORAL 07:31: [address] PREDNISONE 0 Yes None Univers 10 MG ORAL 06-12 Entered ity of TAB 07:31: [address] METHOTREXAT Yes None Univer s E SODIUM - Entered ity of 2.5 MG ORAL 07:31: [address] PREDNISONE 0 Yes None Univers 10 MG ORAL - Entered ity of TAB 07:31: [address] METHOTREXAT Yes None Univer s E SODIUM - Entered ity of 2.5 MG ORAL 07:31: [address] PREDNISONE 0 Yes None Univers 10 MG ORAL 1- Entered ity of TAB 07:31: [address] METHOTREXAT 2022-0 Yes None Univer s E SODIUM 1-01 Entered ity of 2.5 MG ORAL 07:31: [place] TAB 09 Medical Branch traMADoL 50 2021-0 Yes [id number] 50mg Take 1 Univ ers mg tablet 1-01 tablet by ity o f 00:00: mouth [place] 00 every 4 Medical (four) Branch hours as needed for Pain (scale 1-3). Indication s: acute pain methocarbam 2021-0 Yes [id number] 750mg Take 1 Univers oL 750 mg [...] Indication s: acute pain methocarbam 2021-0 Yes [id number] 750mg Take 1 Univers oL 750 mg 1-01 tablet by ity o f tablet 00:00: mouth (four) Medical times Branch daily. traMADoL 50 2021-0 Yes [id number] 50mg Take 1 Univ ers mg tablet 1-01 tablet by ity o f 00:00: mouth [place] 00 every 4 Medical (four) Branch hours as needed for Pain (scale 1-3). Indication s: acute pain methocarbam 2021-0 Yes [id number] 750mg Take 1 Univers oL 750 mg 1-01 tablet by ity o f tablet 00:00: mouth 00 (four) Medical times Branch daily. traMADoL 50 2021-0 Yes [id number] 50mg Take 1 Univ ers mg tablet 1-01 tablet by ity o f 00:00: mouth [place] 00 every 4 Medical (four) Branch hours as needed for Pain (scale 1-3). Indication s: acute pain methocarbam 2021-0 Yes [id number] 750mg Take 1 Univers oL 750 mg [...] Indication s: acute pain methocarbam 2022-0 Yes [id number] 750mg Take 1 Univers oL 750 mg 1-01 tablet by ity o f tablet 00:00: mouth (four) Medical times Branch daily. traMADoL 50 2-0 Yes [id number] 50mg Take 1 Univ ers mg tablet 1-01 tablet by ity o f 00:00: mouth [place] 00 every 4 Medical (four) Branch hours as needed for Pain (scale 1-3). Indication s: acute pain methocarbam 2-0 Yes [id number] 750mg Take 1 Univers oL 750 mg 1-01 tablet by ity o f tablet 00:00: mouth (four) Medical times Branch daily. traMADoL 50 2021-0 Yes [id number] 50mg Take 1 Univ ers mg tablet 1-01 tablet by ity o f 00:00: mouth [place] 00 every 4 Medical (four) Branch hours as needed for Pain (scale 1-3). Indication s: acute pain methocarbam 2021-0 Yes [id number] 750mg Take 1 Univers oL 750 mg 1-01 tablet by ity o f tablet 00:00: mouth (four) Medical times Branch daily. traMADoL 50 2021-0 Yes [id number] 50mg Take 1 Univ ers mg tablet 1-01 tablet by ity o f 00:00: mouth [place] 00 every 4 Medical (four) Branch hours as needed for Pain (scale 1-3). Indication s: acute pain methocarbam 2-0 Yes [id number] 750mg Take 1 Univers oL 750 mg 1-01 tablet by ity o f tablet 00:00: mouth (four) Medical times Branch daily. traMADoL 50 2-0 Yes [id number] 50mg Take 1 Univ ers mg tablet 1-01 tablet by ity o f 00:00: mouth [place] 00 every 4 Medical (four) Branch hours as needed for Pain (scale 1-3). Indication s: acute pain methocarbam 2-0 Yes [id number] 750mg Take 1 Univers oL 750 mg 1-01 tablet by ity o f tablet 00:00: mouth 4 (four) Medical times Branch daily. traMADoL 50 2-0 Yes [id number] 50mg Take 1 Univ ers mg tablet 1-01 tablet by ity o f 00:00: mouth [place] 00 every 4 Medical (four) Branch hours as needed for Pain (scale 1-3). Indication s: acute pain methocarbam Yes [id number] 750mg Take 1 Univers oL 750 mg 1-01 tablet by ity o f tablet 00:00: mouth 4 00 (four) Medical times Branch daily. traMADoL 50 Yes [id number] 50mg Take 1 Univ ers mg tablet 1-01 tablet by ity o f 00:00: mouth [place] 00 every 4 Medical (four) Branch hours as needed for Pain (scale 1-3). Indication s: acute pain methocarbam Yes [id number] 750mg Take 1 Univers oL 750 mg 1-01 tablet by ity o f tablet 00:00: mouth 4 00 (four) Medical times Branch daily. Blood 2020-06 Yes [id number] CHECK UT Glucose 2-27 BLOOD Health Monitoring 00:00: SUGAR Suppl (ONE 00 THREE TOUCH ULTRA TIMES A 2) w/Device DAY kit Blood 2020-06 Yes [id number] CHECK UT Glucose 2-27 BLOOD Health Monitoring 00:00: [place] Suppl (ONE 00 THREE TOUCH ULTRA TIMES A 2) w/Device DAY kit Blood 2020-06 Yes [id number] CHECK UT Glucose 2-27 BLOOD Health Monitoring 00:00: [place] Suppl (ONE 00 THREE TOUCH ULTRA TIMES A 2) w/Device DAY kit Blood 2020-06 Yes [id number] CHECK UT Glucose 2-27 BLOOD Health Monitoring 00:00: [place] Suppl (ONE 00 THREE TOUCH ULTRA TIMES A 2) w/Device DAY kit Blood 2020-06 Yes [id number] CHECK UT Glucose 2-27 BLOOD Health Monitoring 00:00: [place] Suppl (ONE 00 THREE TOUCH ULTRA TIMES A 2) w/Device DAY kit Blood 2020-06 Yes [id number] CHECK UT Glucose 2-27 BLOOD Health Monitoring 00:00: [place] Suppl (ONE 00 THREE TOUCH ULTRA TIMES A 2) w/Device DAY kit ezetimibe 2020-06 Yes [id number] 10mg Take 1 UT (Zetia) 10 2-16 tablet (10 Hea lth MG tablet 00:00: mg total) 00 by mouth every night. ezetimibe 2020-06 Yes [id number] 10mg Take 1 UT (Zetia) 10 2-16 tablet (10 Hea lth MG tablet 00:00: mg total) 00 by mouth every night. ezetimibe 2020-06 Yes [id number] 10mg Take 1 UT (Zetia) 10 2-16 tablet (10 Hea lth MG tablet 00:00: mg total) 00 by mouth every night. ezetimibe 2020-06 Yes [id number] 10mg Take 1 UT (Zetia) 10 2-16 tablet (10 Hea lth MG tablet 00:00: mg total) 00 by mouth every night. dapaglifloz 2020-06- No [id number] 10mg QD Take 1 UT in -16 12-17 tablet (10 [place] ([facility]) 00:00: 05:59 mg total) 10 MG 00 :00 by mouth 1 (one) time each day. dapaglifloz 2020-06- No [id number] 10mg QD Take 1 UT in -16 12-17 tablet ([address] [place] [address] ([facility]) 00:00: 05:59 mg total) 10 MG 00 :00 by mouth 1 (one) time each day. dapaglifloz 2020-06- No [id number] 10mg QD Take 1 UT in -16 -17 tablet (10 [place] ([facility]) 00:00: 05:59 mg total) 10 MG 00 :00 by mouth 1 (one) time each day. dapaglifloz 2020-06- No [id number] 10mg QD Take 1 UT in -16 -17 tablet (10 [place] ([facility]) 00:00: 05:59 mg total) 10 MG 00 :00 by mouth 1 (one) time each day. dapaglifloz 2020-06- No [id number] 10mg QD Take 1 UT in -16 -03 tablet (10 [place] ([facility]) 00:00: 00:00 mg total) 10 MG 00 :00 by mouth 1 (one) time each day. ezetimibe 2020-06- No [id number] 10mg Take 1 U T (Zetia) 10 -16 11-03 tablet (10 He alth MG tablet 00:00: 00:00 mg total) 00 :00 by mouth every night. hydrOXYzine Yes [id number] 10mg Q6H Take 1 UT HCl 9-20 tablet (10 Health (Atarax) 10 00:00: mg total) MG tablet 00 by mouth every 6 (six) hours if needed for itching for up to 10 days. hydrOXYzine 2020-0 Yes [id number] 10mg Q6H Take 1 UT HCl 9-20 tablet (10 Health (Atarax) 10 00:00: mg total) MG tablet 00 by mouth every 6 (six) hours if needed for itching for up to 10 days. hydrOXYzine 2020-0 Yes [id number] 10mg Q6H Take 1 UT HCl 9-20 tablet (10 Health (Atarax) 10 00:00: mg total) MG tablet 00 by mouth every 6 (six) hours if needed for itching for up to 10 days. hydrOXYzine 2020-0 Yes [id number] 10mg Q6H Take 1 UT HCl 9-20 tablet (10 Health (Atarax) 10 00:00: mg total) MG tablet 00 by mouth every 6 (six) hours if needed for itching for up to 10 days. hydrOXYzine 2020-0 Yes [id number] 10mg Q6H Take 1 UT HCl 9-20 tablet (10 Health (Atarax) 10 00:00: mg total) MG tablet 00 by mouth every 6 (six) hours if needed for itching for up to 10 days. Insulin Pen 0 Yes [id number] USE UP TO UT Needle (BD 8-12 5 NEEDLES Heal th Pen Needle 00:00: DAILY Makeda 2nd 00 Gen) 32G X 4 MM misc insulin 0 Yes [id number] Inject 44 UT glargine 8-12 Units Health (Basaglar 00:00: under the KwikPen) 00 skin 1 100 UNIT/ML (one) time injection each day in the morning. insulin 2020-0 Yes [id number] Inject 20 UT aspart 8-12 Units Health (NovoLOG 00:00: under the FLEXPEN) 00 skin 1 100 UNIT/ML (one) time injection each day with breakfast AND 28 Units 1 (one) time each day with dinner. Insulin Pen 0 Yes [id number] USE UP TO UT Needle (BD 8-12 5 NEEDLES Heal th Pen Needle 00:00: DAILY Makeda 2nd 00 Gen) 32G X 4 MM misc fluvastatin 2020-0 Yes [id number] 20mg Take 1 UT (Lescol) 20 8-12 capsule Healt h MG capsule 00:00: (20 mg 00 total) by mouth every night. Victoza 18 Yes [id number] 1.2mg QD Inject 1.2 UT MG/3ML 8-12 mg under Health injection 00:00: the skin 1 00 (one) time each day. Insulin Pen Yes [id number] USE UP TO UT Needle (BD 8-12 5 NEEDLES Heal th Pen Needle 00:00: DAILY Makeda 2nd 00 Gen) 32G X 4 MM misc fluvastatin Yes [id number] 20mg Take 1 UT (Lescol) 20 8-12 capsule Healt h MG capsule 00:00: (20 mg 00 total) by mouth every night. Insulin Pen Yes [id number] USE UP TO UT Needle (BD 8-12 5 NEEDLES Heal th Pen Needle 00:00: DAILY Makeda 2nd 00 Gen) 32G X 4 MM misc fluvastatin Yes [id number] 20mg Take 1 UT (Lescol) 20 8-12 capsule Healt h MG capsule 00:00: (20 mg 00 total) by mouth every night. Insulin Pen Yes [id number] USE UP TO UT Needle (BD 8-12 5 NEEDLES Heal th Pen Needle 00:00: DAILY Makeda 2nd 00 Gen) 32G X 4 MM misc Insulin Pen Yes [id number] USE UP TO UT Needle (BD 8-12 5 NEEDLES Heal th Pen Needle 00:00: DAILY Makeda 2nd 00 Gen) 32G X 4 MM misc fluvastatin 2021- No [id number] 20mg Take 1 UT (Lescol) 20 -04-14 capsule Heal th MG capsule 00:00: 00:00 (20 mg 00 :00 total) by mouth every night. insulin 2021- No [id number] Inject 44 UT glargine 01-21 Units Health (Basaglar 00:00: 00:00 under the KwikPen) 00 :00 skin 1 100 UNIT/ML (one) time injection each day in the morning. insulin 2021- No [id number] Inject 20 UT aspart 01-21 Units Health (NovoLOG 00:00: 00:00 under the FLEXPEN) 00 :00 skin 1 100 UNIT/ML (one) time injection each day with breakfast AND 28 Units 1 (one) time each day with dinner. Victoza 18 2021- No [id number] 1.2mg QD Inject 1.2 UT MG/3ML 01-21 08-16 mg under Health injection 00:00: 00:00 the skin 1 00 :00 (one) time each day. insulin 2021- No [id number] Inject 44 UT glargine 01-21-13 Units Health (Basaglar 00:00: 04:59 under the KwikPen) 00 :00 skin 1 100 UNIT/ML (one) time injection each day in the morning. insulin 2021- No [id number] Inject 20 UT aspart 01-21- Units Health (NovoLOG 00:00: 04:59 under the FLEXPEN) 00 :00 skin 1 100 UNIT/ML (one) time injection each day with breakfast AND 28 Units 1 (one) time each day with dinner. fluvastatin 2021- No [id number] 20mg Take 1 UT (Lescol) 20 01-21- capsule Heal th MG capsule 00:00: 04:59 (20 mg 00 :00 total) by mouth every night. Victoza 18 2021- No [id number] 1.2mg QD Inject 1.2 UT MG/3ML 01-21-13 mg under Health injection 00:00: 04:59 the skin 1 00 :00 (one) time each day. levothyroxi Yes [id number] Take U T ne 12-31 levothyrox Health (Synthroid, 00:00: ine 150 Levoxyl) 00 mcg 6.5 150 MCG tablets tablet per week (one tablet Monday through Monday and 1/2 tablet on Monday) levothyroxi Yes [id number] Take U T ne 12-31 levothyrox Health (Synthroid, 00:00: ine 150 Levoxyl) 00 mcg 6.5 150 MCG tablets tablet per week (one tablet Monday through Monday and 1/2 tablet on Monday) levothyroxi Yes [id number] Take U T ne 12-31 levothyrox Health (Synthroid, 00:00: ine 150 Levoxyl) 00 mcg 6.5 150 MCG tablets tablet per week (one tablet Monday through Monday and 1/2 tablet on Monday) levothyroxi Yes [id number] Take U T ne 12-31 levothyrox Health (Synthroid, 00:00: ine 150 Levoxyl) 00 mcg 6.5 150 MCG tablets tablet per week (one tablet Monday through Monday and 1/2 tablet on Monday) levothyroxi Yes [id number] Take U T ne 12-31 levothyrox Health (Synthroid, 00:00: ine 150 Levoxyl) 00 mcg 6.5 150 MCG tablets tablet per week (one tablet Monday through Monday and 1/2 tablet on Monday) levothyroxi Yes [id number] Take U T ne 12-31 levothyrox Health (Synthroid, 00:00: ine 150 Levoxyl) 00 mcg 6.5 150 MCG tablets tablet per week (one tablet Monday through Monday and 1/2 tablet on Monday) OneTouch Yes [id number] Test 3 UT Delica 7-15 times Health Lancets 33G 00:00: daily misc 00 OneTouch 0 Yes [id number] Test 3 UT Delica 7-15 times Health Lancets 33G 00:00: daily misc 00 OneTouch 0 Yes [id number] Test 3 UT [place]ica 7-15 times Health Lancets 33G 00:00: daily misc 00 OneTouch 2020-0 Yes [id number] Test 3 UT [place] 7-15 times Health Lancets 33G 00:00: daily misc 00 OneTouch 0 Yes [id number] Test 3 UT [place]ica 7-15 times Health Lancets 33G 00:00: daily misc 00 OneTouch 0 Yes [id number] Test 3 UT [place] 7-15 times Health Lancets 33G 00:00: daily misc 00 Blood 2020-0 Yes [id number] TEST 3 UT Glucose 7-13 TIMES A Health Monitoring 00:00: DAY Suppl 00 (Blood Glucose Monitor System) w/Device kit Glucose Yes [id number] TEST 3 UT Blood 7-13 TIMES A Health (Blood 00:00: DAY Glucose 00 Test) strip Lancets 2020-0 Yes [id number] TEST 3 UT misc 7-13 TIMES A Health 00:00: DAY 00 Blood 2020-0 Yes [id number] TEST 3 UT Glucose 7-13 TIMES A Health Monitoring 00:00: DAY Suppl 00 (Blood Glucose Monitor System) w/Device kit Glucose 2020-0 Yes [id number] TEST 3 UT Blood 7-13 TIMES A Health (Blood 00:00: DAY Glucose 00 Test) strip Lancets 2020-0 Yes [id number] TEST 3 UT misc 7-13 TIMES A Health 00:00: DAY 00 Blood 2020-0 Yes [id number] TEST 3 UT Glucose 7-13 TIMES A Health Monitoring 00:00: DAY Suppl 00 (Blood Glucose Monitor System) w/Device kit Glucose 2020-0 Yes [id number] TEST 3 UT Blood 7-13 TIMES A Health (Blood 00:00: DAY Glucose 00 Test) strip Lancets 2020-0 Yes [id number] TEST 3 UT misc 7-13 TIMES A Health 00:00: DAY 00 Blood 2020-0 Yes [id number] TEST 3 UT Glucose 7-13 TIMES A Health Monitoring 00:00: DAY Suppl 00 (Blood Glucose Monitor System) w/Device kit Glucose 2020-0 Yes [id number] TEST 3 UT Blood 7-13 TIMES A Health (Blood 00:00: DAY Glucose 00 Test) strip Lancets 2020-0 Yes [id number] TEST 3 UT misc 7-13 TIMES A Health 00:00: DAY 00 Blood 2020-0 Yes [id number] TEST 3 UT Glucose 7-13 TIMES A Health Monitoring 00:00: DAY Suppl 00 (Blood Glucose Monitor System) w/Device kit Glucose 2020-0 Yes [id number] TEST 3 UT Blood 7-13 TIMES A Health (Blood 00:00: DAY Glucose 00 Test) strip Lancets 2020-0 Yes [id number] TEST 3 UT misc 7-13 TIMES A Health 00:00: DAY 00 Blood 2020-0 Yes [id number] TEST 3 UT Glucose 7-13 TIMES A Health Monitoring 00:00: DAY Suppl 00 (Blood Glucose Monitor System) w/Device kit Glucose 2020-0 Yes [id number] TEST 3 UT Blood 7-13 TIMES A Health (Blood 00:00: DAY Glucose 00 Test) strip Lancets 0 Yes [id number] TEST 3 UT misc 7-13 TIMES A Health 00:00: DAY 00 Continuous 2020-0 Yes [id number] Use as UT Blood Gluc 5-18 instructed Hea lth Sensor 00:00: (FreeStyle 00 [facility] sensor system) misc Continuous 0 Yes [id number] Use as UT Blood Gluc 5-18 instructed Hea lth Sensor 00:00: (FreeStyle 00 [facility] sensor system) misc Continuous Yes [id number] Use as UT Blood Gluc 5-18 instructed Hea lth Sensor 00:00: (FreeStyle 00 [facility] sensor system) misc Continuous Yes [id number] Use as UT Blood Gluc 5-18 instructed Hea lth Sensor 00:00: (FreeStyle 00 [facility] sensor system) misc Continuous Yes [id number] Use as UT Blood Gluc 5-18 instructed Hea lth Sensor 00:00: (FreeStyle 00 [facility] sensor system) misc Continuous Yes [id number] Use as UT Blood Gluc 5-18 instructed Hea lth Sensor 00:00: (FreeStyle 00 [facility] sensor system) misc doxazosin 0 Yes UT (Cardura) 2 5-17 Health MG [...] MG DR 00:00: capsule 00 DULoxetine 2020-0 2022- No UT (Cymbalta) 2-24 11-[address] 00:00: 00:00 capsule 00 :00 OneTouch 2019-1 Yes UT Verio test 2-03 [...] test 2-03 Health strip 00:00: 00 Restasis 2019-0 Yes UT 0.05 % 8-15 Health ophthalmic 00:00: emulsion 00 Restasis 2019-0 Yes UT 0.05 % 8-15 Health ophthalmic 00:00: emulsion 00 Restasis 2019-0 Yes UT 0.05 % 8-15 Health ophthalmic 00:00: emulsion 00 Restasis 2019-0 Yes UT 0.05 % 8-15 Health ophthalmic 00:00: emulsion 00 Restasis 2019-0 Yes UT 0.05 % 8-15 Health ophthalmic 00:00: emulsion 00 Restasis 2019-0 Yes UT 0.05 % 8-15 Health ophthalmic 00:00: emulsion 00 METHOTREXAT Yes None Univer s E SODIUM - Entered ity of 2.5 MG ORAL 04:11: [address] FOLIC ACID Yes None Univers 1 MG ORAL - Entered ity of TAB 04:11: [address] LEVOTHYROXI Yes None Univer s NE 200 MCG - Entered ity of ORAL TAB 04:11: [address] METFORMIN Yes None Univers 500 MG ORAL - Entered ity o f TAB 04:11: [address] CALCITRIOL Yes None Univers 0.5 MCG -31 Entered ity of ORAL CAP 04:11: [address] FOLTRIN Yes None Univers ORAL - Entered ity of 04:11: [address] ENALAPRIL Yes None Univers MALEATE 20 - Entered ity of MG ORAL TAB 04:11: [address] HYDROXYCHLO Yes None Univer s ROQUINE 200 1-31 Entered ity o f MG ORAL TAB 04:11: [address] AMLODIPINE Yes None Univers BESYLATE - Entered ity of ORAL 04:11: [address] PREDNISONE Yes None Univers 10 MG ORAL -31 Entered ity of TAB 04:11: [address] METHOCARBAM Yes None Univer s OL 750 MG -31 Entered ity of ORAL TAB 04:11: [address] HYDROCHLORO Yes None Univer s THIAZIDE 25 -31 Entered ity o f MG ORAL TAB 04:11: [address] TRAMADOL 50 Yes 2 tabs q 6 Univers MG ORAL TAB 07-12 hours prn ity of 00:00: pain [place] 00 [facility] folic acid Yes Take by UT (Folvite) 1 - mouth. Health MG tablet 00:00: 00 folic acid Yes Take by UT (Folvite) 1 07-12 mouth. Health MG tablet 00:00: 00 TRAMADOL 50 2- No 2 tabs q 6 Univers MG ORAL TAB 07-12 01-01 hours prn it y of 00:00: 00:00 pain [place] 00 :00 [facility] FOLIC ACID Yes None Univers 1 MG ORAL 1-30 Entered ity of TAB 22:11: [address] LEVOTHYROXI Yes None Univer s NE 200 MCG 1-30 Entered ity of ORAL TAB 22:11: [address] METFORMIN Yes None Univers 500 MG ORAL 1-30 Entered ity o f TAB 22:11: [address] CALCITRIOL Yes None Univers 0.5 MCG 1-30 Entered ity of ORAL CAP 22:11: [address] FOLTRIN Yes None Univers ORAL 1-30 Entered ity of 22:11: [address] ENALAPRIL Yes None Univers MALEATE 20 1-30 Entered ity of MG ORAL TAB 22:11: [address] HYDROXYCHLO Yes None Univer s ROQUINE 200 1-30 Entered ity o f MG ORAL TAB 22:11: [address] AMLODIPINE Yes None Univers BESYLATE 1-30 Entered ity of ORAL 22:11: [address] FOLIC ACID Yes None Univers 1 MG ORAL 1-30 Entered ity of TAB 22:11: [address] LEVOTHYROXI Yes None Univer s NE 200 MCG 1-30 Entered ity of ORAL TAB 22:11: [address] METFORMIN Yes None Univers 500 MG ORAL 1-30 Entered ity o f TAB 22:11: [address] CALCITRIOL Yes None Univers 0.5 MCG 1-30 Entered ity of ORAL CAP 22:11: [address] FOLTRIN Yes None Univers ORAL 1-30 Entered ity of 22:11: [address] ENALAPRIL Yes None Univers MALEATE 20 1-30 Entered ity of MG ORAL TAB 22:11: [address] HYDROXYCHLO Yes None Univer s ROQUINE 200 1-30 Entered ity o f MG ORAL TAB 22:11: [address] AMLODIPINE Yes None Univers BESYLATE 1-30 Entered ity of ORAL 22:11: [address] FOLIC ACID Yes None Univers 1 MG ORAL 1-30 Entered ity of TAB 22:11: [address] LEVOTHYROXI Yes None Univer s NE 200 MCG 1-30 Entered ity of ORAL TAB 22:11: [address] METFORMIN Yes None Univers 500 MG ORAL 1-30 Entered ity o f TAB 22:11: [address] CALCITRIOL Yes None Univers 0.5 MCG 1-30 Entered ity of ORAL CAP 22:11: [address] FOLTRIN Yes None Univers ORAL 1-30 Entered ity of 22:11: [address] ENALAPRIL Yes None Univers MALEATE 20 1-30 Entered ity of MG ORAL TAB 22:11: [address] HYDROXYCHLO Yes None Univer s ROQUINE 200 1-30 Entered ity o f MG ORAL TAB 22:11: [address] AMLODIPINE Yes None Univers BESYLATE 1-30 Entered ity of ORAL 22:11: [address] FOLIC ACID Yes None Univers 1 MG ORAL 1-30 Entered ity of TAB 22:11: [address] LEVOTHYROXI Yes None Univer s NE 200 MCG 1-30 Entered ity of ORAL TAB 22:11: [address] METFORMIN 2007- Yes None Univers 500 MG ORAL 1-30 Entered ity o f TAB 22:11: [address] CALCITRIOL Yes None Univers 0.5 MCG 1-30 Entered ity of ORAL CAP 22:11: [address] FOLTRIN Yes None Univers ORAL 1-30 Entered ity of 22:11: [address] ENALAPRIL Yes None Univers MALEATE 20 1-30 Entered ity of MG ORAL TAB 22:11: [address] HYDROXYCHLO Yes None Univer s ROQUINE 200 1-30 Entered ity o f MG ORAL TAB 22:11: [address] AMLODIPINE Yes None Univers BESYLATE 1-30 Entered ity of ORAL 22:11: [address] FOLIC ACID Yes None Univers 1 MG ORAL 1-30 Entered ity of TAB 22:11: [address] LEVOTHYROXI Yes None Univer s NE 200 MCG 1-30 Entered ity of ORAL TAB 22:11: [address] METFORMIN Yes None Univers 500 MG ORAL 1-30 Entered ity o f TAB 22:11: [address] CALCITRIOL Yes None Univers 0.5 MCG 1-30 Entered ity of ORAL CAP 22:11: [address] FOLTRIN Yes None Univers ORAL 1-30 Entered ity of 22:11: [address] ENALAPRIL Yes None Univers MALEATE 20 1-30 Entered ity of MG ORAL TAB 22:11: [address] HYDROXYCHLO Yes None Univer s ROQUINE 200 1-30 Entered ity o f MG ORAL TAB 22:11: [address] AMLODIPINE Yes None Univers BESYLATE 1-30 Entered ity of ORAL 22:11: [address] HYDROCHLORO Yes None Univer s THIAZIDE 25 1-30 Entered ity o f MG ORAL TAB 22:11: [address] HYDROCHLORO Yes None Univer s THIAZIDE 25 1-30 Entered ity o f MG ORAL TAB 22:11: [address] HYDROCHLORO Yes None Univer s THIAZIDE 25 1-30 Entered ity o f MG ORAL TAB 22:11: [address] HYDROCHLORO Yes None Univer s THIAZIDE 25 1-30 Entered ity o f MG ORAL TAB 22:11: [address] HYDROCHLORO Yes None Univer s THIAZIDE 25 1-30 Entered ity o f MG ORAL TAB 22:11: [address] Vital Signs Vital Name Observation Time [...] 16:37:00 126 mm[Hg] Univer sity of pressure [place] [facility] Diastolic blood 2021-12-15 16:37:00 56 mm[Hg] Unive rsity of pressure [place] [facility] Heart rate 2021-12-15 16:37:00 63 /min [facility] [place] [facility] Body temperature 2021-12-15 16:37:00 36.39 Josette Univ ersity [facility] [place] [facility] Respiratory rate 2021-12-15 16:37:00 18 /min Univ ersity [facility] [place] [facility] Oxygen saturation in 2021-12-15 16:37:00 99 /min University of Arterial blood by [place] [facility] Pulse oximetry Branch Body weight 2021-12-15 09:13:00 110.995 kg [facility] [place] [facility] BMI 2021-12-15 09:13:00 44.76 kg/m2 [facility] [place] [facility] Body height 2021-12-03 11:19:00 157.5 cm [facility] [place] [facility] Systolic blood 2021-11-29 14:17:00 124 mm[Hg] Univer sity of pressure [place] [facility] Diastolic blood 2021-11-29 14:17:00 62 mm[Hg] Unive rsity of pressure [place] [facility] Heart rate 2021-11-29 14:17:00 82 /min [facility] [place] [facility] Body temperature 2021-11-29 14:17:00 36.94 Josette Univ [facility] [place] [facility] Respiratory rate 2021-11-29 14:17:00 18 /min Univ [facility] [place] [facility] Body height 2021-11-29 14:17:00 157.5 cm [facility] [place] [facility] Body weight 2021-11-29 14:17:00 92.534 kg [facility] [place] [facility] BMI 2021-11-29 14:17:00 37.31 kg/m2 [facility] [place] [facility] Oxygen saturation in 2021-11-29 14:17:00 97 /min University of Arterial blood by [place] [facility] Pulse oximetry Branch Systolic blood 2021-11-10 07:07:54 223 mm[Hg] Univer sity of pressure [place] [facility] Diastolic blood 2021-11-10 07:07:54 93 mm[Hg] Unive rsity of pressure [facility] Heart rate 2021-11-10 07:07:54 66 /min Universi ty [facility] Body temperature 2021-11-10 07:07:54 36.5 Josette [facility] Respiratory rate 2021-11-10 07:07:54 17 /min Univ [facility] Body height 2021-11-10 05:54:00 157.5 cm Universi ty [facility] Body weight 2021-11-10 05:54:00 92.534 kg Universi ty [facility] BMI 2021-11-10 05:54:00 37.31 kg/m2 Universi ty [facility] Oxygen saturation in 2021-11-10 05:49:00 96 /min University of Arterial blood by [facility] Pulse oximetry [place] Body temperature 2021-06-12 13:32:00 37.72 Josette [facility] Systolic blood 2021-06-12 13:29:00 125 mm[Hg] Univer sity of [facility] Diastolic blood 2021-06-12 13:29:00 64 mm[Hg] [facility]ive [facility] Heart rate 2021-06-12 13:29:00 82 /min [facility] Respiratory rate 2021-06-12 13:29:00 18 /min [facility] 2021-06-12 13:29:00 101.606 kg Universi ty [facility] Oxygen saturation in 2021-06-12 13:29:00 97 /min [facility] Arterial blood by [facility] Pulse oximetry [place] Procedures Procedure Date / Time Performing Clinician Source Performed EXTERNAL PROVIDER RECORDS 2022-07-21 06:01:00 Doctor Unassigned, [facility] [place] [facility] POCT GLUCOSE 2022-06-07 16:27:00 [place], [facility] Health POCT GLYCOSYLATED 2022-06-07 16:27:00 [place], [facility] HEMOGLOBIN (HGB A1C) POCT GLUCOSE 2022-03-08 13:43:00 [place], [facility] Health COMPREHENSIVE METABOLIC 2022-01-25 16:11:00 [place], [facility] H ealth PANEL CALCIUM, IONIZED 2022-01-25 16:11:00 [place], [facility] Health MAGNESIUM 2022-01-25 16:11:00 Mo-Yodit Jewell [facility] PHOSPHORUS 2022-01-25 16:11:00 AustinGEORGE [facility] HEPATITIS A ANTIBODY, IGM 2022-01-03 02:51:00 CH I [facility] HEPATITIS B CORE ANTIBODY, 2022-01-03 02:51:00 C HI [facility] HEPATITIS C ANTIBODY 2022-01-03 02:51:00 [facility] HEPATITIS B SURFACE 2022-01-03 02:51:00 [facility] EXTERNAL PROVIDER RECORDS 2021-12-31 05:01:00 Doctor Unassigned, [facility] [place] [facility] COMPREHENSIVE METABOLIC 2021-12-30 16:26:00 [facility] PANEL HEMOGLOBIN A1C 2021-12-30 16:26:00 [facility] C-REACTIVE PROTEIN 2021-12-30 16:26:00 [facility] AND DIFFERENTIAL 2021-12-30 16:26:00 [facility] URINALYSIS WITH REFLEX 2021-12-30 16:26:00 [facility] ealth MICROSCOPIC PROTEIN / CREATININE 2021-12-30 16:26:00 [facility] RATIO, URINE ALBUMIN, RANDOM URINE W/CR 2021-12-30 16:26:00 [facility] (MICROALBUMIN) NULL 2021-12-30 16:26:00 [facility] PREPARE PACKED RBC 2021-12-15 19:54:34 Harjeet Burleson [facility] POCT GLUCOSE (AUTOMATED) 2021-12-15 16:38:00 Harjeet Burleson [facility] POCT GLUCOSE (AUTOMATED) 2021-12-15 12:52:00 Harjeet Burleson [facility] COMP. METABOLIC PANEL 2021-12-15 09:34:00 Otto Sanchez [facility] ([id number]) Medical Branch POCT GLUCOSE (AUTOMATED) 2021-12-15 01:30:00 [facility] 2021-12-14 22:05:00 Harjeet Burleson [facility] DUPLEX VENOUS LEGS 2021-12-14 21:55:00 Otto Sanchez [facility] BILATERAL - BY VASCULAR [facility] LAB POCT GLUCOSE (AUTOMATED) 2021-12-14 17:09:00 Harjeet Burleson [facility] XR CHEST 1 VW 2021-12-14 13:35:00 [facility] PO[facility]SE (AUTOMATED) 2021-12-14 12:31:00 Harjeet Burleson [facility] COMP. METABOLIC PANEL 2021-12-14 08:30:00 Otto Sanchez [facility] ([id number]) [facility] CBC WITH DIFF 2021-12-14 04:27:00 Otto Sanchez [facility] PANEL IDENTIFICATION 2021-12-14 03:37:00 [facility] ELUTION IDENTIFICATION 2021-12-14 03:37:00 Ayesha Bateman [facility] HB ABO GROUPING 2021-12-14 03:37:00 [facility] ZACHARY POLYSPECIFIC RESULT 2021-12-14 03:37:00 [facility] Z[facility]ARY MONOSPECIFIC IGG 2021-12-14 03:37:00 Ayesha Bateman [facility] RESULT [facility] ZACHARY MONOSPECIFIC C3 RESULT 2021-12-14 03:37:00 Ayesha Bateman [facility] POCT GLUCOSE (AUTOMATED) 2021-12-14 01:35:00 Harjeet Burleson [facility] POCT GLUCOSE (AUTOMATED) 2021-12-13 21:59:00 Harjeet Burleson [facility] POCT GLUCOSE (AUTOMATED) 2021-12-13 17:12:00 Harjeet Burleson [facility] POCT GLUCOSE (AUTOMATED) 2021-12-13 12:37:00 Benjy, [facility] BASIC METABOLIC PANEL (NA, 2021-12-13 09:19:00 Darío Rinaldi [facility] K, CL, CO2, GLUCOSE, BUN, Medica l Branch CREATININE, CA) CBC WITH DIFF 2021-12-13 09:19:00 Gentry [facility] N-TERMINAL PRO-BNP 2021-12-13 09:19:00 Otto Sanchez [facility] POCT GLUCOSE (AUTOMATED) 2021-12-13 01:37:00 Benjy [facility] VANCOMYCIN RANDOM LEVEL 2021-12-12 23:06:00 Gentry [facility] POCT GLUCOSE (AUTOMATED) 2021-12-12 21:48:00 Benjy [facility] POCT GLUCOSE (AUTOMATED) 2021-12-12 16:45:00 Benjy [facility] IONIZED CALCIUM 2021-12-12 15:19:00 [facility] POCT GLUCOSE (AUTOMATED) 2021-12-12 12:17:00 Benjy [facility] PHOSPHORUS 2021-12-12 09:31:00 [facility]NESI[facility] 2021-12-12 09:31:00 [facility] BASIC METABOLIC PANEL (NA, 2021-12-12 09:31:[address] [facility] K, CL, CO2, GLUCOSE, BUN, Medica l Branch CREATININE, CA) CBC WITH DIFF 2021-12-12 09:31:00 [facility] PO[facility] GLUCOSE (AUTOMATED) 2021-12-12 02:16:00 Benjy [facility] VANCOMYCIN RANDOM LEVEL 2021-12-11 23:26:00 Vivienne Gallo [facility] CBC WITHOUT DIFF 2021-12-11 23:26:00 Harjeet Burleson [facility] POCT GLUCOSE (AUTOMATED) 2021-12-11 21:50:00 Harjeet Burleson [facility] PREPARE PACKED RBC 2021-12-11 17:50:14 Joe [facility] POCT GLUCOSE (AUTOMATED) 2021-12-11 16:18:00 Colt Astorga [facility] TRANSFUSION RXN 2021-12-11 09:35:28 Joe [facility] TRXN WORKUP-ABBREVIATED 2021-12-11 09:26:48 Colt Astorga [facility] MAGNESIUM 2021-12-11 09:21:00 Raman [facility] BASIC METABOLIC PANEL (NA, 2021-12-11 09:21:00 Jaylin Camargo [facility] K, CL, CO2, GLUCOSE, BUN, Medica l Branch CREATININE, CA) CBC WITH DIFF 2021-12-11 09:21:00 Raman [facility] POCT GLUCOSE (AUTOMATED) 2021-12-11 01:43:00 Colt Astorga [facility] PANEL IDENTIFICATION 2021-12-10 23:32:00 Jaylin Camargo [facility] ELUTION IDENTIFICATION 2021-12-10 23:32:00 Raman [facility] POCT GLUCOSE (AUTOMATED) 2021-12-10 22:33:00 Joe [facility] HB ABO GROUPING 2021-12-10 20:25:00 Raman [facility] POCT GLUCOSE (AUTOMATED) 2021-12-10 19:31:00 Colt Astorga [facility] THYROID STIMULATING 2021-12-10 19:23:00 Aidee Harvey [facility] HORMONE [facility] VANCOMYCIN RANDOM LEVEL 2021-12-10 19:23:00 Nirmala Vasquez [facility] TRANSTHORACIC ECHO (TTE) 2021-12-10 16:57:00 Suresh Bentley [facility] COMPLETE W/ CONTRAST Medical [facility] POCT GLUCOSE (AUTOMATED) 2021-12-10 16:44:00 Cotl Astorga [facility] CBC WITH DIFF 2021-12-10 14:20:00 Raman [facility] POCT GLUCOSE (AUTOMATED) 2021-12-10 14:19:00 Colt Astorga [facility] POCT GLUCOSE (AUTOMATED) 2021-12-10 12:54:00 Colt Astorga [facility] LACTIC ACID WHOLE BLOOD 2021-12-10 09:18:00 Mc [facility] MAGNESIUM 2021-12-10 09:17:00 Raman [facility] IONIZED CALCIUM 2021-12-10 09:17:00 [facility] HEPATIC FUNCTION PANEL 2021-12-10 09:17:00 [facility] ([id number]) (ALB,T.PRO,[facility] T,BU/BC,ALT,AST,ALK PHOS) BASIC METABOLIC PANEL (NA, 2021-12-10 09:17:00 [facility] K, CL, CO2, GLUCOSE, BUN, Medica l Branch CREATININE, CA) CBC WITH DIFF 2021-12-10 09:17:00 Camargo, [facility] EKG-12 LEAD 2021-12-10 07:12:46 Doctor Unassigned, [facility] [place] [facility] POCT GLUCOSE (AUTOMATED) 2021-12-10 06:17:00 Colt Astorga [facility] POCT GLUCOSE (AUTOMATED) 2021-12-10 04:16:00 Colt Atsorga [facility] POCT GLUCOSE (AUTOMATED) 2021-12-10 02:03:00 Colt Astorga [facility] CT HEAD WO CONTRAST 2021-12-10 00:39:00 Lauro [facility] AC PANEL 20 + LACTIC ACID 2021-12-09 23:38:00 [facility] POCT GLUCOSE (AUTOMATED) 2021-12-09 23:28:00 Colt Astorga [facility] MISCELLANEOUS SEND OUT 2021-12-09 21:48:00 Nirmala Vasquez [facility] COVID-19 (MOLECULAR 2021-12-09 21:22:00 Nirmala Vasquez [facility] TESTING [facility] NUCLEIC ACID AMPLIFICATION) LAB ONLY COVID 2021-12-09 21:22:00 Pedro Nirmala [facility] INTERPRETATION [facility] HISTOPLASMA GALACTOMANNAN 2021-12-09 21:21:00 Nirmala Vasquez [facility] ANTIGEN QUANTITATIVE BY Medical Branch EIA, URINE POCT GLUCOSE (AUTOMATED) 2021-12-09 21:08:00 Colt Astorga [facility] POCT GLUCOSE (AUTOMATED) 2021-12-09 18:59:00 Colt Astorga [facility] HB HLA I TYPING COMPLETE 2021-12-09 17:56:00 Nicho Upton [facility] LR DNA [facility] HB HLA CLASS I AB HIGH 2021-12-09 17:56:00 Nicho Upton [facility] QUAL [facility] EKG-12 LEAD 2021-12-09 16:48:51 Doctor Unassigned, [facility] [place] [facility] POCT GLUCOSE (AUTOMATED) 2021-12-09 16:29:00 Colt Astorga [facility] POCT GLUCOSE (AUTOMATED) 2021-12-09 13:10:00 Colt Astorga [facility] POCT GLUCOSE (AUTOMATED) 2021-12-09 10:26:00 Colt Astorga [facility] MAGNESIUM 2021-12-09 09:19:00 Jaylin Camargo [facility] BASIC METABOLIC PANEL (NA, 2021-12-09 09:19:00 Jaylin Camargo [facility] K, CL, CO2, GLUCOSE, BUN, Medica l Branch CREATININE, CA) CBC WITH DIFF 2021-12-09 09:19:00 Raman Jaylin [facility] POCT GLUCOSE (AUTOMATED) 2021-12-09 06:58:00 Colt Astorga [facility] POCT GLUCOSE (AUTOMATED) 2021-12-09 04:00:00 Colt Astorga [facility] POCT GLUCOSE (AUTOMATED) 2021-12-09 00:50:00 Colt Astorga [facility] BLOOD CULTURE SCREEN 2021-12-08 22:18:00 Jaylin Camargo [facility] CBC WITH DIFF 2021-12-08 21:31:00 [facility] (AUTOMATED) 2021-12-08 21:14:00 Colt Astorga [facility] TRANSFUSE PLATELETS 2021-12-08 19:15:00 Jaylin Camargo [facility] PREPARE PLATELETS 2021-12-08 19:08:27 Raman [facility] POCT GLUCOSE (AUTOMATED) 2021-12-08 19:08:00 Joe [facility] POCT GLUCOSE (AUTOMATED) 2021-12-08 17:10:00 Colt Astorga [facility] POCT GLUCOSE (AUTOMATED) 2021-12-08 13:45:00 Colt Astorga [facility] POCT GLUCOSE (AUTOMATED) 2021-12-08 11:31:00 Colt Astorga [facility] MAGNESIUM 2021-12-08 11:22:00 [facility]ABOLIC PANEL (NA, 2021-12-08 11:22:00 Jaylin Camargo [facility] K, CL, CO2, GLUCOSE, BUN, Medica [facility] Branch CREATININE, CA) CBC WITH DIFF 2021-12-08 11:22:00 Raman [facility] TRANSFUSE PLATELETS 2021-12-08 08:37:00 Suresh Bentley [facility] PREPARE PLATELETS 2021-12-08 08:28:56 [facility]ATED) 2021-12-08 08:24:00 Colt Astorga [facility] BASIC METABOLIC PANEL (NA, 2021-12-08 04:46:00 Ai Bentley [facility] K, CL, CO2, GLUCOSE, BUN, Medica l Branch CREATININE, CA) CBC WITH DIFF 2021-12-08 04:46:00 Pino Restrepo [facility] POCT GLUCOSE (AUTOMATED) 2021-12-08 03:52:00 Colt Astorga [facility] POCT GLUCOSE (AUTOMATED) 2021-12-08 01:24:00 Colt Astorga [facility] POCT GLUCOSE (AUTOMATED) 2021-12-07 21:54:00 Colt Astorga [facility] CBC WITH DIFF 2021-12-07 19:41:00 Lauro [facility] POCT GLUCOSE (AUTOMATED) 2021-12-07 19:14:00 Colt Astorga [facility] VANCOMYCIN TROUGH 2021-12-07 17:47:00 [facility] ([facility]OMATED) 2021-12-07 15:56:00 Colt Astorga [facility] MAGNESIUM 2021-12-07 14:16:00 Raman [facility] BASIC METABOLIC PANEL (NA, 2021-12-07 14:16:00 Jaylin Camargo [facility] K, CL, CO2, GLUCOSE, BUN, Medica l Branch CREATININE, CA) CBC WITH DIFF 2021-12-07 14:15:00 Raman [facility] FIBRINOGEN 2021-12-07 13:18:00 [facility] POCT GLUCOSE (AUTOMATED) 2021-12-07 12:33:00 Colt Astorga [facility] TRANSFUSE PLATELETS 2021-12-07 11:40:00 Suresh Bentley [facility] PREPARE PLATELETS 2021-12-07 11:30:59 Suresh Bentley [facility] TRANSFUSE PACKED RBC 2021-12-07 07:32:00 Suresh Bentley [facility] PREPARE PACKED RBC 2021-12-07 07:24:01 Suresh Bentley [facility] IONIZED CALCIUM 2021-12-07 03:27:00 Suresh Bentley [facility] BASIC METABOLIC PANEL (NA, 2021-12-07 03:27[facility], CO2, GLUCOSE, BUN, Medica l Branch CREATININE, CA) CBC WITHOUT DIFF 2021-12-07 03:27:00 [facility] POCT GLUCOSE (AUTOMATED) 2021-12-07 01:18:00 Colt Astorga [facility] IONIZED CALCIUM 2021-12-06 22:01:00 Mc Suresh [facility] POCT GLUCOSE (AUTOMATED) 2021-12-06 21:33:00 Colt Astorga [facility] WOUND/ASPIRATE OR ABSCESS 2021-12-06 21:20:00 [facility] CULTURE [facility] WOUND CULTURE 2021-12-06 21:20:00 [facility] CBC WITHOUT DIFF 2021-12-06 20:29:00 [facility] VANCOMYCIN TROUGH 2021-12-06 19:24:00 Vivienne Gallo [facility] OCCULT (GUAIAC) BLOOD 2021-12-06 19:20:00 Suresh Bentley [facility] POCT GLUCOSE (AUTOMATED) 2021-12-06 16:00:00 Colt Astorga [facility] CBC WITH DIFF 2021-12-06 15:45:00 Suresh Bentley [facility] BASIC METABOLIC PANEL (NA, 2021-12-06 12:50:00 Colt Astorga [facility] K, CL, CO2, GLUCOSE, BUN, Medica [facility] Branch CREATININE, CA) CBC WITH DIFF 2021-12-06 12:50:00 Colt Astorga [facility] POCT GLUCOSE (AUTOMATED) 2021-12-06 12:41:00 Colt Astorga [facility] TRANSFUSE PACKED RBC 2021-12-06 11:30:00 Suresh Bentley [facility] XR CHEST 1 VW 2021-12-06 11:00:31 Colt Astorga [facility] PREPARE PACKED RBC 2021-12-06 10:14:34 Suresh Bentley [facility] HSV 1&2, VZV NAAT 2021-12-06 05:51:00 Suresh Bentley [facility] sity [facility] MAGNESIUM 2021-12-06 05:49:00 Mc Suresh [facility] COMP. METABOLIC PANEL 2021-12-06 05:49:00 Suresh Bentley [facility] ([id number]) [facility] CBC WITH DIFF 2021-12-06 05:49:00 Mc Suresh [facility] TRANSFUSE PLATELETS 2021-12-06 02:50:00 Joe [facility] PREPARE PLATELETS 2021-12-06 02:21:17 Joe [facility] POCT GLUCOSE (AUTOMATED) 2021-12-06 01:47:00 Joe [facility] URINALYSIS 2021-12-05 22:54:00 Joe [facility] URINE CULTURE 2021-12-05 22:54:00 Joe [facility] POCT GLUCOSE (AUTOMATED) 2021-12-05 22:01:00 Lauro, Pino U [facility] BLOOD CULTURE SCREEN 2021-12-05 18:47:00 Colt Astorga [facility] PROCALCITONIN 2021-12-05 18:47:00 Joe [facility] BLOOD CULTURE SCREEN 2021-12-05 18:36:00 Colt Astorga [facility] POCT GLUCOSE (AUTOMATED) 2021-12-05 17:40:00 Lauro, Pino U [facility] HB ABO GROUPING 2021-12-05 15:45:00 Joe [facility] POCT GLUCOSE (AUTOMATED) 2021-12-05 12:44:00 Terminella, Pino U [facility] CBC WITH DIFF 2021-12-05 11:03:00 Joe [facility] POCT GLUCOSE (AUTOMATED) 2021-12-05 10:05:00 Terminella, Pino U [facility] POCT GLUCOSE (AUTOMATED) 2021-12-05 05:47:00 Terminella, Pino U niversity [facility] POCT GLUCOSE (AUTOMATED) 2021-12-05 01:15:00 Terminella, Pino U niversity [facility] POCT GLUCOSE (AUTOMATED) 2021-12-04 21:31:00 [facility]inella[facility] ([facility]OMATED) 2021-12-04 16:17:00 Terminella, Pino U niversity [facility] POCT GLUCOSE (AUTOMATED) 2021-12-04 12:31:00 Terminella, Pino U [facility] BASIC METABOLIC PANEL (NA, 2021-12-04 10:25:00 Colt Astorga [facility] K, CL, CO2, GLUCOSE, BUN, Medica [facility] Branch CREATININE, CA) METHOTREXATE 2021-12-04 10:25:[address] [facility] CBC WITH DIFF 2021-12-04 10:25:[address] [facility] POCT GLUCOSE (AUTOMATED) 2021-12-04 09:37:00 Terminella, [facility]ino [facility]SE (AUTOMATED) 2021-12-04 09:08:00 Terminella, [facility]SE (AUTOMATED) 2021-12-04 06:24:00 Terminella, Pino U niversity [facility] POCT GLUCOSE (AUTOMATED) 2021-12-04 02:56:00 Terminella, Pino U niversity [facility] POCT GLUCOSE (AUTOMATED) 2021-12-03 22:00:00 Terminella, Pino U niversity [facility] POCT GLUCOSE (AUTOMATED) 2021-12-03 17:11:00 Terminella, Pino U niversity [facility] POCT GLUCOSE (AUTOMATED) 2021-12-03 15:31:00 Terminella, [facility]ino [facility]SF[facility] PACKED RBC 2021-12-03 14:37:00 Colt Astorga [facility] PREPARE PACKED RBC 2021-12-03 14:24:52 Colt Astorga [facility] POCT GLUCOSE (AUTOMATED) 2021-12-03 13:12:00 Terminella, Pino U niversity [facility] MAGNESIUM 2021-12-03 10:30:00 [facility] BASIC METABOLIC PANEL (NA, 2021-12-03 10:30:00 CamargoJaylin hogue U niversity [facility] K, CL, CO2, GLUCOSE, BUN, Medica [facility] Branch CREATININE, CA) CBC WITH DIFF 2021-12-03 10:30:00 Raman [facility] o [facility] POCT GLUCOSE (AUTOMATED) 2021-12-03 10:29:00 Terminella, Pino U niversity [facility] POCT GLUCOSE (AUTOMATED) 2021-12-03 06:53:00 Terminella, Pino U niversity [facility] POCT GLUCOSE (AUTOMATED) 2021-12-03 04:52:00 Terminella, Pino U niversity [facility] POCT GLUCOSE (AUTOMATED) 2021-12-03 04:04:00 Terminella, Pino U [facility]iversity [facility] POCT GLUCOSE (AUTOMATED) 2021-12-03 03:00:00 Terminella, Pino U niversity [facility] POCT GLUCOSE (AUTOMATED) 2021-12-03 02:13:00 Terminella, Pino U niversity [facility] BASIC METABOLIC PANEL (NA, 2021-12-02 23:02:00 CamargoRosalio hogueal [facility] [place] K, CL, CO2, GLUCOSE, BUN, [facility]ica [facility] Branch CREATININE, CA) POCT GLUCOSE (AUTOMATED) 2021-12-02 23:01:00 Terminella, Pino U [facility] POCT GLUCOSE (AUTOMATED) 2021-12-02 19:53:00 Terminella, Pino U [facility] POCT GLUCOSE (AUTOMATED) 2021-12-02 18:27:00 Terminella, Pino U niversity [facility] POCT GLUCOSE (AUTOMATED) 2021-12-02 16:55:00 Terminella, Pino U [facility] POCT GLUCOSE (AUTOMATED) 2021-12-02 16:13:00 Terminella, [facility]ino [facility] (AUTOMATED) 2021-12-02 15:22:00 Terminella, Pino [facility] PO[facility]UCOSE (AUTOMATED) 2021-12-02 14:08:00 Terminella, Pino [facility] METHOTREXATE 2021-12-02 14:06:00 [facility] BASIC METABOLIC PANEL (NA, 2021-12-02 14:05:00 Terminella, [facility] K, CL, CO2, GLUCOSE, BUN, Medica l Branch CREATININE, CA) POCT GLUCOSE (AUTOMATED) 2021-12-02 13:05:00 Terminella, Pino U [facility] POCT GLUCOSE (AUTOMATED) 2021-12-02 12:13:00 Terminella, Pino U [facility] BASIC METABOLIC PANEL (NA, 2021-12-02 11:26:00 Albustami, Leonard U [facility] K, CL, CO2, GLUCOSE, BUN, Medica [facility] Branch CREATININE, CA) POCT GLUCOSE (AUTOMATED) 2021-12-02 11:08:00 Terminella, Pino U [facility] POCT GLUCOSE (AUTOMATED) 2021-12-02 10:13:00 Terminella, Pino U [facility] POCT GLUCOSE (AUTOMATED) 2021-12-02 09:12:00 Terminella, [facility]ino [facility] PHOSPHORUS 2021-12-02 08:05:00 Twyla Sepulveda [facility] ALBUMIN 2021-12-02 08:05:00 Twyla Sepulveda [facility] MAGNESIUM 2021-12-02 08:05:00 Coco Vturiel [facility] BASIC METABOLIC PANEL (NA, 2021-12-02 08:05:00 [facility] CL, CO2, GLUCOSE, BUN, Medica [facility] Branch CREATININE, CA) INTACT PTH CALCIUM GROUP 2021-12-02 08:05:00 Twyla Sepulveda [facility] CBC WITH DIFF 2021-12-02 08:05:00 [facility] PO[facility]SE (AUTOMATED) 2021-12-02 08:05:00 Terminella, Pino U [facility] POCT GLUCOSE (AUTOMATED) 2021-12-02 07:10:00 Terminella, Pino U [facility] POCT GLUCOSE (AUTOMATED) 2021-12-02 05:54:00 Terminella, Pino U [facility] TRANSFUSE PLATELETS 2021-12-02 05:31:00 Norm Abad [facility] BASIC METABOLIC PANEL (NA, 2021-12-02 05:15:00 Lauren [facility] K, CL, CO2, GLUCOSE, BUN, [facility] Branch CREATININE, CA) POCT GLUCOSE (AUTOMATED) 2021-12-02 05:13:00 Terminella, Pino U [facility] PREPARE PLATELETS 2021-12-02 04:51:39 Norm Abad [facility] POCT GLUCOSE (AUTOMATED) 2021-12-02 03:57:00 Terminella, Pino U [facility] POCT GLUCOSE (AUTOMATED) 2021-12-02 03:07:00 Terminella, Pino U [facility] BASIC METABOLIC PANEL (NA, 2021-12-02 02:23:00 Terminangy [facility] K, CL, CO2, GLUCOSE, BUN, Medica l Branch CREATININE, CA) POCT GLUCOSE (AUTOMATED) 2021-12-02 02:16:00 Terminella, Pino U [facility] POCT GLUCOSE (AUTOMATED) 2021-12-02 01:04:00 Terminella, Pino U [facility] ABORH CONFIRMATION (LAB 2021-12-02 00:40:00 Norm Abad [facility]) [facility] POCT GLUCOSE (AUTOMATED) 2021-12-02 00:04:00 Terminella, Pino U [facility] BASIC METABOLIC PANEL (NA, 2021-12-01 23:41:00 Lauro [facility] K, CL, CO2, GLUCOSE, BUN, Medica [facility] Branch CREATININE, CA) ANTIGEN TYPING PATIENT 2021-12-01 23:40:00 Benjy Harjeet [facility] HB ABO GROUPING 2021-12-01 23:40:00 Norm Abad [facility] POCT GLUCOSE (AUTOMATED) 2021-12-01 23:01:00 Pino Restrepo [facility] POCT GLUCOSE (AUTOMATED) 2021-12-01 22:05:[address] [facility] PROTEIN CREAT RATIO URINE 2021-12-01 21:18:00 Twyla Sepulveda [facility] TOTAL PROTEIN, URINE 2021-12-01 21:18:00 Twyla Sepulveda [facility] UREA NITROGEN, URINE 2021-12-01 21:18:00 Twyla Sepulveda [facility] SODIUM, URINE RANDOM 2021-12-01 21:18:00 Twyla Sepulveda [facility] URINALYSIS 2021-12-01 20:22:00 [facility] MSSA SCREEN BY PCR, 2021-12-01 20:13:00 [facility] NARES [facility] PHOSPHORUS 2021-12-01 20:12:00 Lauro [facility] MAGNESIUM 2021-12-01 20:12:00 [facility] OSMOLALITY, SERUM OR 2021-12-01 20:12:00 [facility] PLASMA [facility] BETA HYDROXY-BUTYRATE 2021-12-01 20:12:00 Lauro [facility] GLYCOSYLATED HEMOGLOBIN 2021-12-01 20:12:00 Pino Restrepo [facility] (A1C) [facility] HEPATITIS B SURFACE 2021-12-01 20:12:00 [facility] HIV 1/2 AG-AB WITH REFLEX 2021-12-01 20:12:00 Faisal Hebert [facility] POCT GLUCOSE (AUTOMATED) 2021-12-01 19:28:00 Pino Restrepo [facility] LACTATE DEHYDROGENASE 2021-12-01 18:43:00 Norm Abad [facility] HAPTOGLOBIN, SERUM 2021-12-01 18:43:00 [facility] C-REACTIVE PROTEIN 2021-12-01 18:43:00 Pino Restrepo [facility] TOTAL IRON BINDING 2021-12-01 18:43:[address] [facility] BASIC METABOLIC PANEL (NA, 2021-12-01 18:43:00 Colt Astorga [facility] K, CL, CO2, GLUCOSE, BUN, Medica [facility] Branch CREATININE, CA) IRON PANEL 2021-12-01 18:43:00 Twyla Sepulveda [facility] HEPATITIS B SURFACE 2021-12-01 18:43:00 [facility] ANTIBODY [facility] HCV ANTIBODY 2021-12-01 18:43:[address] [facility] HBC ANTIBODY (IGM & IGG) 2021-12-01 18:43:00 Faisal Hebert [facility] ACUTE CARE ARTERIAL BLOOD 2021-12-01 17:31:00 Colt Astorga [facility] GAS [facility] POCT GLUCOSE (AUTOMATED) 2021-12-01 16:33:00 Ayesha Bateman [facility] XR CHEST 1 VW 2021-12-01 16:07:03 Joe [facility] URIC ACID 2021-12-01 15:25:[address] [facility] FERRITIN SERUM 2021-12-01 15:25:[address] [facility] VITAMIN B12, LEVEL 2021-12-01 15:25:00 Faisal Hebert [facility] BETA HYDROXY-BUTYRATE 2021-12-01 15:25:00 [facility]EL 2021-12-01 15:25:00 Norm Abad [facility] ([id number]) (ALB,T.PRO,BILI Medical Branch T,BU/BC,ALT,AST,ALK PHOS) BASIC METABOLIC PANEL (NA, 2021-12-01 14:19:00 Colt Astorga [facility] K, CL, CO2, GLUCOSE, BUN, Medica [facility] Branch CREATININE, CA) POCT GLUCOSE (AUTOMATED) 2021-12-01 12:57:00 [facility]IS 2021-12-01 11:17:00 [facility] BLOOD CULTURE SCREEN 2021-12-01 11:07:00 [facility] 2021-12-01 11:00:00 [facility]ha [facility] CBC WITHOUT DIFF 2021-12-01 10:59:00 [facility] GLYCOSYLATED HEMOGLOBIN 2021-12-01 10:59:00 Colt Astorga [facility] (A1C) [facility] PROTHROMBIN TIME / INR 2021-12-01 10:59:00 Ayesha Bateman [facility] ACTIVATED PARTIAL THRMPLAS 2021-12-01 10:59:00 Ayesha Bateman [facility] RETICULOCYTES AUTOMATED 2021-12-01 10:59:[address] [facility] RAPID STREP SCREEN FOR 2021-11-29 15:00:00 Catarina Marcus [facility] GROUP A [facility] [place] CONSENT/REFUSAL FOR 2021-11-29 14:13:09 [facility] DIAGNOSIS AND TREATMENT [place] [facility] [place] NOTICE OF PRIVACY 2021-11-10 05:41:29 Doctor Dimitrios, [facility] PRACTICES [facility] CONSENT/REFUSAL FOR 2021-11-10 05:35:53 Doctor Unassigned, [facility] DIAGNOSIS AND TREATMENT [facility] CONSENT/REFUSAL FOR 2021-09-03 18:13:12 Doctor Unassigned [facility] DIAGNOSIS AND TREATMENT [facility] ASSIGNMENT OF BENEFITS 2021-09-03 18:12:54 Doctor Unassigned, [facility] EXTERNAL PROVIDER RECORDS 2021-07-29 06:01:00 Doctor Dimitrios, [facility] CONSENT/REFUSAL FOR 2021-06-12 13:16:46 Doctor Unassigned, [facility] DIAGNOSIS AND TREATMENT [facility] PATIENT FINANCIAL 2021-02-05 16:00:55 Doctor Unassigned, [facility] POLICY [facility] NO SHOW OR MISSED 2021-02-05 16:00:22 Doctor Dimitrios, [facility] APPOINTMENT POLICY [facility] [place] [facility] ACKNOWLEDGEMENT NOTICE OF PRIVACY 2021-02-05 15:59:57 Doctor Dimitrios, [facility] PRACTICES [facility] CONSENT/REFUSAL FOR 2021-02-05 15:59:37 Doctor Unachloé [facility] DIAGNOSIS AND TREATMENT [facility] ASSIGNMENT OF BENEFITS 2021-02-05 15:59:15 Doctor Dimitrios, [facility] Arthroscopy of knee with Jose Rodriguez meniscus repair Laminectomy and discectomy Landon Mazariegos [facility] Plan of Care Planned Activity Planned Date [facility]00 (12+) [code = [facility] DEPRESSION SCREENING (12+)] Future Scheduled 2022-02-10 [...] [facility]00 [facility] Future Scheduled 2008 SHINGLES VACCINES ([address] [facility] 00:00:00 2) [facility] ([facility] of 2)] Future Scheduled 2008 SHINGLES VACCINES ([address] [facility] 00:00:00 2) [facility] (1 of 2)] Future Scheduled 2008 SHINGLES VACCINES ([address] [facility] 00:00:00 2) [facility] (1 of 2)] Future Scheduled 2008 SHINGLES VACCINES ([address] [facility] 00:00:00 2) [facility] (1 of 2)] Future Scheduled 2003 Lipid panel (procedure) [facility] 00:00:00 [code = 38489066] Medical Ce nter Future Scheduled 2003 Lipid panel (procedure) [facility] 00:00:00 [code = 58325961] Medical Ce nter Future Scheduled 2003 Lipid panel (procedure) [facility] 00:00:00 [code = 61593615] Medical Ce nter Future Scheduled 2003 Lipid panel (procedure) [facility] 00:00:00 [code = 41534591] Medical Ce nter Future Scheduled 2003 Lipid panel (procedure) [facility] 00:00:00 [code = 76492510] Medical Ce nter Future Scheduled 1979 Screening for malignant [facility] 00:00:00 neoplasm of cervix Medical C enter (procedure) [code = 815793381] Future Scheduled 1979 Screening for malignant [facility] 00:00:00 neoplasm of cervix Medical C enter (procedure) [code = 263496812] Future Scheduled 1979 Screening for malignant [facility] 00:00:00 neoplasm of cervix Medical C enter (procedure) [code = 018881685] Future Scheduled 1979 Screening for malignant [facility] 00:00:00 neoplasm of cervix Medical C enter (procedure) [code = 963439383] Future Scheduled 1979 Screening for malignant [facility] 00:00:00 neoplasm of cervix Medical C enter (procedure) [code = 458831079] Future Scheduled 1977 DTAP/TDAP/TD VACCINES CH I [...] colon Medical Ce nter (procedure) [code = 444666434] Future Scheduled 1958 Screening for malignant [facility] 00:00:00 neoplasm of colon Medical Ce nter (procedure) [code = 309907465] Future Scheduled 1958 Sigmoidoscopy [code = [facility] S[facility]oscopy] Medical Cent[facility] r Future Scheduled 1958 Screening for malignant [facility] 00:00:00 neoplasm of breast Medical C enter (procedure) [code = 620938384] Future Scheduled 1958 CT Colonography (combo) [facility] 00:00:00 [code = CT Colonography [facility] (combo)] Future Scheduled 1958 Screening for malignant [facility] 00:00:00 neoplasm of colon Medical Ce nter (procedure) [code = 691582568] Future Scheduled 1958 Screening for malignant [facility] 00:00:00 neoplasm of colon Medical Ce nter (procedure) [code = 637081803] Future Scheduled 1958 Screening for malignant [facility] 00:00:00 neoplasm of colon Medical Ce nter (procedure) [code = 212489135] Future Scheduled 1958 Screening for malignant [facility] 00:00:00 neoplasm of colon Medical Ce nter (procedure) [code = 156098991] Future Scheduled 1958 Sigmoidoscopy [code = [facility] S[facility]oidoscopy] Medical Cente r Future Scheduled 1958 Screening for malignant [facility] 00:00:00 neoplasm of breast Medical C enter (procedure) [code = 567853776] Future Scheduled 1958 CT Colonography (combo) [facility] 00:00:00 [code = CT Colonography [facility] (combo)] Future Scheduled 1958 Screening for malignant [facility] 00:00:00 neoplasm of colon Medical Ce nter (procedure) [code = 909581262] Future Scheduled 1958 Screening for malignant [facility] 00:00:00 neoplasm of colon Medical Ce nter (procedure) [code = 870011693] Future Scheduled 1958 Screening for malignant [facility] 00:00:00 neoplasm of colon Medical Ce nter (procedure) [code = 825856673] Future Scheduled 1958 Screening for malignant [facility] 00:00:00 neoplasm of colon Medical Ce nter (procedure) [code = 902657658] Future Scheduled 1958 Sigmoidoscopy [code = [facility] S[facility]oscopy] Medical Cente r Future Scheduled 1958 Screening for malignant [facility] 00:00:00 neoplasm of breast Medical C enter (procedure) [code = 591531609] Future Scheduled 1958 CT Colonography (combo) [facility] 00:00:00 [code = CT Colonography [facility] (combo)] Future Scheduled 1958 Screening for malignant [facility] 00:00:00 neoplasm of colon Medical Ce nter (procedure) [code = 481798281] Future Scheduled 1958 Screening for malignant [facility] 00:00:00 neoplasm of colon Medical Ce nter (procedure) [code = 402688832] Future Scheduled 1958 Screening for malignant [facility] 00:00:00 neoplasm of colon Medical Ce nter (procedure) [code = 999739822] Future Scheduled 1958 Screening for malignant [facility] 00:00:00 neoplasm of colon Medical Ce nter (procedure) [code = 826432739] Future Scheduled 1958 Sigmoidoscopy [code = [facility] S[facility]oscopy] Medical Cente r Future Scheduled 1958 Screening for malignant [facility] 00:00:00 neoplasm of breast Medical C enter (procedure) [code = [id number]] Future Scheduled 1958 CT Colonography (combo) [facility] 00:00:00 [code = CT Colonography [facility] (combo)] Future Scheduled 1958 Screening for malignant [facility] 00:00:00 neoplasm of colon Medical Ce nter (procedure) [code = 213629263] Future Scheduled 1958 Screening for malignant [facility] 00:00:00 neoplasm of colon Medical Ce nter (procedure) [code = 478865545] Future Scheduled 1958 Screening for malignant [facility] 00:00:00 neoplasm of colon Medical Ce nter (procedure) [code = 915326027] Future Scheduled 1958 Screening for malignant [facility] 00:00:00 neoplasm of colon Medical Ce nter (procedure) [code = 147061924] Future Scheduled 1958 Sigmoidoscopy [code = [facility]] [facility] Cent[facility] Future Scheduled 1958 Screening for malignant [facility] 00:00:00 neoplasm of breast Medical C enter (procedure) [code = 529093249] Future Scheduled 1958 CT Colonography (combo) [facility] 00:00:00 [code = CT Colonography [facility] (combo)] Future Scheduled 1958 Screening for malignant [facility] 00:00:00 neoplasm of colon Medical Ce nter (procedure) [code = 933534357] Future Scheduled 1958 Screening for malignant [facility] 00:00:00 neoplasm of colon Medical Ce nter (procedure) [code = 301352896] Encounters Start End Encounter Admission Attending Care Care Encounter Source Date/Time Date/Time Type Type Clinicians Facility Department ID 2022-06-07 Outpatient [facility] [id number] [place] 11:31:[address] [place] [address] 2022-04-15 Outpatient [facility] [id number] [place] 13:30:[address] [place] [address] 2022-02-09 Outpatient SYSTEM, BRIANA WARREN [id number] 17:32:57 PROVIDER Yariel o n 2021-07-07 Outpatient PATRICIA [facility] [id number] [place] 13:17:48 [facility] 2021-05-27 [facility] [id number] [place] 11:53:21 [facility] 2021-01-21 Outpatient [facility] [id number] [place] 11:08:40 [facility] 2020-11-04 Outpatient [facility] [id number] [place] 12:32:24 [facility] 2020-10-27 Outpatient CHAUDHRI, [facility] [id number] [place] 09:13:17 [facility] 2020-10-17 Outpatient CHAUDHRI, [facility] [id number] [place] 04:20:12 [facility] 2022-10-20 2022-10-20 Outpatient PATRICIA, [facility] [id number] [place] 11:00:00 11:00:00 [facility] 2022-07-21 2022-07-21 Orders Doctor KEKE 1.2.840.114 [id number] Univers 00:00:00 00:00:00 Only Unassigned, JOE 350.1.13.10 [facility] 4.2.7.2.686 Armin as [id number] [address] 2022-07-19 2022-07-19 Outpatient AUSTIN, [facility] [id number] [place] 10:15:00 10:15:00 [facility] 2022-06-07 2022-06-07 Office [place], UTP 6410 1.2.912.679 [id number] [place] 10:00:00 11:34:[address] 350.1.13.58 Health 9.2.7.2.686 [id number] 3 2022-04-14 2022-04-14 Office Patricia, UTP 6410 1.2.117.212 [id number] [place] 14:30:00 15:04:[address] 350.1.13.58 Health 9.2.7.2.686 [id number] 9 2022-04-04 2022-04-04 [id number] [facility] 00:00:00 00:00:00 kirill LOAIZA [facility] 2022-03-08 2022-03-08 Office [place], UTP 6410 1.2.237.498 [id number] [place] 08:20:00 09:18:[address] 350.1.13.58 Health 9.2.7.2.686 [id number] 3 2022-01-25 2022-01-25 Office [place], UTP 6410 1.2.234.990 [id number] [place] 09:20:00 10:46:[address] 350.1.13.58 Health 9.2.7.2.686 [id number] 3 2022-01-05 2022-01-05 Telephone No, Pcp UTP 6410 1.2.840.114 [id number] [place] 00:00:00 00:00:00 No, Pcp FABIO ST 350.1.13.58 Health 9.2.7.2.686 [id number] 3 2022-01-03 2022-01-03 [facility] [id number] 00:00:00 00:00:00 [facility] 2022-01-03 2022-01-03 [facility] [id number] 00:00:00 00:00:00 [facility] 2022-01-03 2022-01-03 [facility] [id number] 00:00:00 00:00:00 [facility] 2022-01-03 2022-01-03 [facility] [id number] 00:00:00 00:00:00 [facility] 2022-01-02 2022-01-02 Telephone José, RICHMOND 6410 1.2.840.114 [id number] NE 00:00:00 00:00:[address] 350.1.13.58 Health 9.2.7.2.686 [id number] 9 2021-12-31 2021-12-31 Telephone Tito, UTP 6410 1.2.840.114 [id number] [place] 00:00:00 00:00:[address] 350.1.13.58 Health 9.2.7.2.686 [id number] 9 2021-12-31 2021-12-31 Orders Doctor KEKE 1.2.840.[id number] [place] [address] 00:00:00 00:00:00 Only Unassigned, JOE 350.1.13.10 [place] [facility] 4.2.7.2.686 Armin as [id number] [facility] [address] 2021-12-30 2021-12-30 Office RICHMOND Gomez 6410 1.2.141.191 [id number] NE 10:00:00 11:04:36 Visit Bhanu MCCARTHY 350.1.13.58 Health 9.2.7.2.686 [id number] 9 2021-12-16 2021-12-16 Telephone [facility] 1.2.840.114 [id number] Univers 00:00:00 00:00:00 Otto MULTISPEC 350.1.13.10 [place] [id number] [address] [facility] 2021-12-16 2021-12-16 Transition HARMONY Madden 1.2.840.114 [id number] Univers 00:00:00 00:00:00 of Care Oksana VELASQUEZ 350.1.13.10 i [place] [id number] [facility] [address] 2021-12-16 2021-12-16 Telephone [facility] 1.2.840.114 [id number] Univers 00:00:00 00:00:00 Otto MULTISPEC 350.1.13.10 [place] [id number] [address] [facility] 2021-12-01 2021-12-15 Inpatient U [facility] [id number] Univers 04:26:00 14:53:00 OTTO ity of [facility] 2021-12-01 2021-12-15 Hospital Erika Dickerson [facility] 1.2 .840.114 [id number] Univers 04:26:00 14:53:00 Encounter Colt Astorga [facility] 350.1.13.10 ity of [place] Rest[place] 4.2.7.2.686 [facility] [id number] [address] ([facility]) 2021-11-29 2021-11-29 Emergency X ANGELINE [facility] ERT [id number] Univers 09:18:00 10:44:00 CATARINA ity of [facility] 2021-11-29 2021-11-29 [facility] 1.2.840.114 [id number] Univers 09:18:00 10:44:00 Catarina BLACKMAN 350.1.13.[address] [facility] 4.2.7.2.686 [facility] [id number] [facility] 084 [address] 2021-11-10 2021-11-10 Emergency X Lexy BUTLER [facility] ERT [id number] Univers 01:12:00 02:40:00 ity of [facility] 2021-11-10 2021-11-10 Emergency Lexy Butler [facility] 1.2.840.114 [id number] Univers 01:12:00 02:40:00 Rhiannon BLACKMAN 350.1.13.10 i ty of [place] 4.2.7.2.686 [facility] [id number] [facility] 084 Branch 2021-09-09 2021-09-09 Office RICHMOND Gomez 6410 1.2.753.081 [id number] NE 11:00:00 11:50:14 Visit Bhanu MCCARTHY 350.1.13.58 [facility] 9.2.7.2.686 [id number] 9 2021-09-03 2021-09-03 Outpatient R [facility] [id number] Univers 13:13:04 23:59:00 kirill LOAIZA [facility] 2021-09-03 2021-09-03 [facility] 1.2.840.114 [id number] Univers 13:00:00 23:59:00 Encounter HIRAL Loaiza 350.1.13.10 ity [facility] Irene FELDER 4.2.7.2.686 [facility] [id number] [facility] 806 Branch 2021-07-29 2021-07-29 Orders Doctor KEKE 1.2.840.114 [id number] Univers 00:00:00 00:00:00 Only Unassigned, JOE 350.1.13.10 ity [place] [facility] 4.2.7.2.686 Armin as [id number] [address] 2021-07-15 2021-07-15 Telephone JoanRICHMOND riley 6410 1.2.840.114 1 [id number] [place] 00:00:00 00:00:[address] 350.1.13.58 Health 9.2.7.2.686 [id number] 3 2021-07-12 2021-07-12 Office ThomasRICHMOND caldwell 6410 1.2.135.373 [id number] [place] 13:00:00 13:46:[address] 350.1.13.58 Health 9.2.7.2.686 [id number] 9 2021-06-30 2021-06-30 Telephone Joantarynmc UTP 6410 1.2.840.114 1 [id number] [place] 00:00:00 00:00:[address] 350.1.13.58 Health 9.2.7.2.686 [id number] 3 2021-06-30 2021-06-30 Telephone Shoaib Suze U[facility] 6410 1.2.840. 114 [id number] [place] 00:00:00 00:00:[address] 350.1.13.58 Health 9.2.7.2.686 [id number] 9 2021-06-28 2021-06-28 Telephone Richa Galeano [facility] 6410 1.2.840.1 14 [id number] [place] 00:00:00 00:00:[address] 350.1.13.58 Health 9.2.7.2.686 [id number] 3 2021-06-16 2021-06-16 Telephone Jazmine Vásquez UTP 6410 1.2.840 .114 [id number] [place] 00:00:00 00:00:[address] 350.1.13.58 Health 9.2.7.2.686 [id number] 3 2021-06-12 2021-06-12 Emergency [facility] [id number] Univers 07:31:00 08:02:00 KIM ity [facility] 2021-06-12 2021-06-12 Emergency [facility] 1.2.469.235 [id number] Univers 07:31:00 08:02:00 Kim BLACKMAN 350.1.13.10 ity [facility] 4.2.7.2.686 [facility] [id number] [address] 2021-05-27 2021-05-27 Office RICHMOND Cross 6410 1.2.840.114 [id number] NE 11:00:00 11:53:[address] 350.1.13.58 Health 9.2.7.2.686 [id number] 3 2021-05-25 2021-05-25 Telephone Reynoso, Shakimberly UTP 6410 1.2.840.114 [id number] [place] 00:00:00 00:00:[address] 350.1 .13.58 Health 9.2.7.2.686 [id number] 9 2021-04-22 2021-04-22 Office RICHMOND Gomez 6410 1.2.992.911 [id number] NE 10:16:15 11:51:[address] 350.1.13.58 Health 9.2.7.2.686 [id number] 9 2021-02-28 2021-02-28 Michelle Davila [facility] 6410 1.2.840.114 1 [id number] [place] 00:00:00 00:00:[address] 350.1.13.58 Health 9.2.7.2.686 [id number] 3 2021-02-18 2021-02-18 Office RICHMOND Gomez 6410 1.2.096.813 [id number] [place] 09:28:53 09:58:53 Visit Bhanu OREILLY 350.1.13.58 Health 9.2.7.2.686 [id number] 9 2021-02-05 2021-02-05 [facility] 1.2.840.114 [id number] [facility] 11:00:00 23:59:00 Encounter [facility]13.10 [facility] 4.2.7.2.686 [facility] [id number] [address] 2021-02-05 2021-02-05 Outpatient [facility] [id number] [facility] 00:00:00 00:00:00 TIANA [facility] 2021-01-21 2021-01-21 Office RICHMOND Cross 6410 1.2.840.114 [id number] NE 09:51:53 11:08:37 Visit Marii OREILLY 350.1.13.58 Health 9.2.7.2.686 [id number] 3 2021-01-18 2021-01-18 Telephone RICHMOND Cross 6410 1.2.840.114 1 [id number] NE 00:00:00 00:00:00 Marii OREILLY 350.1.13.58 Health 9.2.7.2.686 [id number] 3 2020-12-30 2020-12-30 Telephone Thalia Jazmineuche FRAGOSO 6410 1.2.840 .114 [id number] [place] 00:00:00 00:00:[address] ST 350.1.13.58 Health 9.2.7.2.686 [id number] 3 2020-12-28 2020-12-28 Orders Richa Galeano UTP 6410 1.2.840.114 [id number] NE 00:00:00 00:00:[address] 350.1.13.58 Health 9.2.7.2.686 [id number] 3 2020-12-28 2020-12-28 Telephone Richa Galeano UTP 6410 1.2.840.1 14 [id number] UT 00:00:00 00:00:[address] 350.1.13.58 Health 9.2.7.2.686 [id number] 3 2020-12-24 2020-12-24 Refill Jazmine Vásquez UTP 6410 1.2.840.1 14 [id number] UT 00:00:00 00:00:[address] 350.1.13.58 Health 9.2.7.2.686 [id number] 3 2020-12-24 2020-12-24 Refill Thalia, Jazmine UTP 6410 1.2.840.1 14 [id number] UT 00:00:00 00:00:[address] 350.1.13.58 Health 9.2.7.2.686 [id number] 3 2020-12-23 2020-12-23 Orders Richa Galeano U[facility] 6410 1.2.840.114 [id number] UT 00:00:00 00:00:[address] 350.1.13.58 Health 9.2.7.2.686 [id number] 3 2020-12-22 2020-12-22 Refill Jazmine Vásquez UTP 6410 1.2.840.1 14 [id number] UT 00:00:00 00:00:[address] 350.1.13.58 Health 9.2.7.2.686 [id number] 3 2020-12-21 2020-12-21 Refill VásquezJazmine mabry UTP 6410 1.2.840.1 14 [id number] UT 00:00:00 00:00:[address] 350.1.13.58 Health 9.2.7.2.686 [id number] 3 2020-12-08 2020-12-08 Telephone Shalonda Rojo [facility] 6410 1 .2.840.114 [id number] [place] 00:00:00 00:00:[address] 350.1. 13.58 Health 9.2.7.2.686 [id number] 3 2020-11-30 2020-11-30 Orders Richa Galeano UTP 6410 1.2.840.114 [id number] NE 00:00:00 00:00:[address] 350.1.13.58 Health 9.2.7.2.686 [id number] 3 2020-10-27 2020-10-27 Office [facility] 6410 1.2.840.114 [id number] NE 09:13:12 11:15:[address] 350.1.13.58 Health 9.2.7.2.686 [id number] 3 2020-10-20 2020-10-20 Refill Shalonda Rojo U[facility] 6410 1.2 .840.114 [id number] NE 00:00:00 00:00:[address] 350.1. 13.58 Health 9.2.7.2.686 [id number] 3 2018-03-01 2018-03-01 Outpatient MHIE MHIE [id number] Memoria 14:15:00 14:15:00 04 thalia [place] 2018-03-01 2018-03-01 Outpatient MHIE MHIE [id number] Memoria 14:15:00 14:15:00 04 [facility] 2018-02-27 2018-02-28 [place] [id number] Memoria 14:49:00 04:59:00 Services r Outpatient 02 [facility] 2018-02-27 2018-02-28 Outpt Diag nullFlavo MHHS [id number] Memoria 14:49:00 04:59:00 Services r Outpatient 02 [facility] 2018-02-27 2018-02-27 Outpatient Bulmaro, MHOIP MHOIP [id number] 09:49:00 23:59:00 Gloria Torre 2018-01-18 2018-01-18 Outpatient MHIE MHIE [id number] Memoria 14:15:00 14:15:00 03 thalia [place] 2018-01-18 2018-01-18 Outpatient KENYETTA KUMARI [id number] Memoria 14:15:00 14:15:00 03 thalia [place] 2017-12-05 2017-12-05 Outpatient KENYETTA KUMARI [id number] Memoria 16:00:00 16:00:00 02 thalia Rodriguez 2017-12-05 2017-12-05 Outpatient KENYETTA KUMARI [id number] Memoria 16:00:00 16:00:00 02 thalia Rodriguez 2017-11-29 2017-11-29 Outpatient KENYETTA KUMARI [id number] Memoria 11:00:00 11:00:00 01 thalia Rodriguez 2017-11-29 2017-11-29 Outpatient KENYETTA KUMARI [id number] Memoria 11:00:00 11:00:00 01 thalia Rodriguez 2017-11-10 2017-11-10 Outpatient KENYETTA KUMARI [id number] Memoria 09:45:00 09:45:00 00 thalia [place] 2017-11-10 2017-11-10 Outpatient KENYETTA KUMARI [id number] Memoria 09:45:00 09:45:00 00 [facility] Results Test Description Test Time Test Comments Results Result Comments Source POCT glucose manually resulted 2022-06-07 16:27:00 Test Item Value Reference Range Interpretation Comme nts Glucose Blood, POC (test code = 5327165) 158 mg/dL 70-180 [facility] glycosylated hemoglobin (Hb A1C) docked [id number] 16:27:00 Test Item Value Reference Range Interpretation Comments Hemoglobin A1C (test code = 4548-4) 6.8 % 4.0-6.0 A Lab Interpretation (test code = Abnormal 57360-1) [facility] glucose manually [id number] 13:43:00 Test Item Value Reference Range Interpretation Comments Glucose Blood, POC (test code = 254 mg/dL 70-180 A 0666329) Lab Interpretation (test code = Abnormal 05946-4) [facility] [id number] 21:00:00 Test Item Value Reference Range Interpretation [...] See_Comment L The eGFR i s based 695196460) on the CKD-EPI 2020 equation. To calculate the n ew eGFR from a previous Creatinine or Cystatin Cresul t, go to https://www.kid ne y.org/professio na ls/kdoqi/gfr%5F ca lculator [Automated message] The [...] CALCIUM (test code = 9.5 mg/dL 8.6-10.4 48821-2) PROTEIN, TOTAL (test 8.3 g/dL 6.1-8.1 H code = 2885-2) ALBUMIN (test code = 3.4 g/dL 3.6-5.1 L 1751-7) GLOBULIN (test code See_Comment H [Automa allison = 04758-3) message] The system which generated this result [...] Performing RAC) Organization Information: ? ?Site ID: [facility] ? ?Name: [facility] ? ?Address: [address] [place], [place] [address] ? ?Director: COLT FIERRO MD Lab Interpretation Abnormal (test code = 42340-9) NE RomideBggtmpojrc4521-42-43 21:00:00 Test Item Value Reference Range Interpretation Comments PHOSPHATE ( 5.3 mg/dL 2.5-4.5 H PHOSPHORUS) (test code = 2777-1) RAC (test code = RAC) Performing Organization Information: ? ?Site ID: [facility] [place] ? ?Name: [facility] ? ?Address: [address] [place], [place] [address] ? ?Director: COLT FIERRO MD Lab Interpretation (test Abnormal code = 70514-2) [place] HealthCalcium, [id number] 21:00:00 Test Item Value Reference Range Interpretation Comments CALCIUM, IONIZED 4.9 mg/dL 4.8-5.6 REPORT (test code = COMMENT:FASTING :Y 53563-7) ES RAC (test code = Performing RAC) Organization Information: ? ?Site ID: A ? ?Name: [facility] ? ?Address: [address] [place] [phone] ? ?Director: COLT FIERRO MD NE ClenweHtkjzezti9192-15-98 21:00:00 Test Item Value Reference Range Interpretation Comments MAGNESIUM (test code 2.4 mg/dL 1.5-2.5 = 67516-6) RAC (test code = RAC) Performing Organization Information: ? ?Site ID: RGA ? ?Name: [facility] ? ?Address: [address] [place] [address] ? ?Director: COLT FIERRO MD [facility] core antibody, [id number] 14:33:56 Test Item Value Reference Range Interpretation Comments Hep B C IgM (test code = Nonreactive Nonreactive 88997-1) FINA (test code = FINA) Equine Internship ID - PIAYA L Lab Interpretation (test Normal code = 19846-5) [facility] cent[facility] A antibody, [id number] 14:33:56 Test Item Value Reference Range Interpretation Comments Hep A IgM (test code = Nonreactive Nonreactive 78514-9) FINA (test code = FINA) Equine Internship ID - PIAYA L Lab Interpretation (test Normal code = 13779-8) [facility] astwpuhm6929-72-28 14:33:56 Test Item Value Reference Range Interpretation Comments Hepatitis C Ab (test Nonreactive Nonreactive code = 17872-9) FINA (test code = FINA) Equine Internship ID - PIAYA L Lab Interpretation (test Normal code = 59088-5) [facility] B surface jrqwedj8910-01-23 14:33:56 Test Item Value Reference Range Interpretation Comments Hepatitis B surface Nonreactive Nonreactive antigen (test code = 5195-3) FINA (test code = FINA) Specimen is considered negative for HBsAg. Lab Interpretation (test Normal code = 05912-2) [facility] B surface [id number] 14:33:56 Test Item Value Reference Range Interpretation Comments Hepatitis B surface Nonreactive Nonreactive antigen (test code = 5195-3) FINA (test code = FINA) Specimen is considered negative for HBsAg. Lab Interpretation (test Normal code = 91843-9) [facility] B core antibody, [id number] 14:33:56 Test Item Value Reference Range Interpretation Comments Hep B C IgM (test code = Nonreactive Nonreactive 81586-9) FINA (test code = FINA) Equine Internship ID - PIAYA L Lab Interpretation (test Normal code = 25700-3) [facility] antibody, [id number] 14:33:56 Test Item Value Reference Range Interpretation Comments Hep A IgM (test code = Nonreactive Nonreactive 08773-6) FINA (test code = FINA) Equine Internship ID - PIAYA L Lab Interpretation (test Normal code = 92989-5) [facility] C [id number] 14:33:56 Test Item Value Reference Range Interpretation Comments Hepatitis C Ab (test Nonreactive Nonreactive code = 96031-2) FINA (test code = FINA) Equine Internship ID - PIAYA L Lab Interpretation (test Normal code = 13360-0) [facility] B surface [id number] 14:33:56 Test Item Value Reference Range Interpretation Comments Hepatitis B surface Nonreactive Nonreactive antigen (test code = 5195-3) FINA (test code = FINA) Specimen is considered negative for HBsAg. Lab Interpretation (test Normal code = 35106-8) [facility] B core antibody, [id number] 14:33:56 Test Item Value Reference Range Interpretation Comments Hep B C IgM (test code = Nonreactive Nonreactive 82951-3) FINA (test code = FINA) Equine Internship ID - PIAYA L Lab Interpretation (test Normal code = 45956-9) [facility] A antibody, [id number] 14:33:56 Test Item Value Reference Range Interpretation Comments Hep A IgM (test code = Nonreactive Nonreactive 00523-4) FINA (test code = FINA) Equine Internship ID - PIAYA L Lab Interpretation (test Normal code = 55974-2) [facility] C kqtdckgf8133-11-75 14:33:56 Test Item Value Reference Range Interpretation Comments Hepatitis C Ab (test Nonreactive Nonreactive code = 61683-9) FINA (test code = FINA) Equine Internship ID - PIAYA L Lab Interpretation (test Normal code = 59707-0) [facility] B surface [id number] 14:33:56 Test Item Value Reference Range Interpretation Comments Hepatitis B surface Nonreactive Nonreactive antigen (test code = 5195-3) FINA (test code = FINA) Specimen is considered negative for HBsAg. Lab Interpretation (test Normal code = 41196-1) [facility] B core antibody, [id number] 14:33:56 Test Item Value Reference Range Interpretation Comments Hep B C IgM (test code = Nonreactive Nonreactive 31602-3) FINA (test code = FINA) Equine Internship ID - PIAYA L Lab Interpretation (test Normal code = 03930-4) [facility] antibody, [id number] 14:33:56 Test Item Value Reference Range Interpretation Comments Hep A IgM (test code = Nonreactive Nonreactive 11112-2) FINA (test code = FINA) Equine Internship ID - PIAYA L Lab Interpretation (test Normal code = 33028-4) [facility] C [id number] 14:33:56 Test Item Value Reference Range Interpretation Comments Hepatitis C Ab (test Nonreactive Nonreactive code = 65238-3) FINA (test code = FINA) Equine Internship ID - PIAYA L Lab Interpretation (test Normal code = 02806-1) [facility] B surface [id number] 14:33:56 Test Item Value Reference Range Interpretation Comments Hepatitis B surface Nonreactive Nonreactive antigen (test code = 5195-3) FINA (test code = FINA) Specimen is considered negative for HBsAg. Lab Interpretation (test Normal code = 75918-1) [facility] B core antibody, [id number] 14:33:56 Test Item Value Reference Range Interpretation Comments Hep B C IgM (test code = Nonreactive Nonreactive 31825-5) FINA (test code = FINA) Equine Internship ID - PIAYA L Lab Interpretation (test Normal code = 02209-8) [facility] antibody, [id number] 14:33:56 Test Item Value Reference Range Interpretation Comments Hep A IgM (test code = Nonreactive Nonreactive 11383-3) FINA (test code = FINA) [facility] - PIAYA L Lab Interpretation (test Normal code = 94651-2) [facility] [id number] 14:33:56 Test Item Value Reference Range Interpretation Comments Hepatitis C Ab (test Nonreactive Nonreactive code = 23643-2) FINA (test code = FINA) [facility] - PIAYA L Lab Interpretation (test Normal code = 64600-9) [facility] B SURFACE [id number] 14:33:56 Test Item Value Reference Range Interpretation Comments HEPATITIS B SURFACE ANTIGEN (2) Nonreactive Nonreactive (BEAKER) (test code = 2585) Specimen is considered negative for HBsAg.HEPATITIS B CORE ANTIBODY, IGM 2022-01-03 14:33:56 Test Item Value Reference Range Interpretation Comments HEPATITIS B CORE IGM ANTIBODY Nonreactive Nonreactive (BEAKER) (test code = 645) [facility] - LISA LHEPATITIS C [id number] 14:33:56 Test Item Value Reference Range Interpretation Comments HEPATITIS C ANTIBODY (BEAKER) Nonreactive Nonreactive (test code = 367) [facility] ID - LISA LHEPATITIS A ANTIBODY, [id number] 14:33:56 Test Item Value Reference Range Interpretation Comments HEPATITIS A IGM ANTIBODY (BEAKER) Nonreactive Nonreactive (test code = 498) [facility] ID - LISA LCBC and migiyfbureiq5132-69-45 19:00:00 Test Item Value Reference Range Interpretation [...] Information: ? ?Site ID: RGA ? ?Name: [facility] ? ?Address: [address] [place] [phone] ? ?Director: COLT FIERRO MD Lab Interpretation Abnormal (test code = 31443-7) [facility] [id number] 19:00:00 Test Item Value Reference Range Interpretation Comments GLUCOSE (test code = 72 mg/dL 65-139 ? ? ? 2345-7) Non-fasting reference interval UREA NITROGEN (BUN) 67 mg/dL 7-25 H (test code = 3094-0) CREATININE (test 3.08 mg/dL 0.5-1.05 H code = 2160-0) EGFR (test code = See_Comment L The eGFR i s based 137745572) on the CKD-EPI 2020 equation. To calculate the n ew eGFR from a previous Creatinine or Cystatin Cresul t, go to [email or web address] ne y.org/profmartin [email or web address] ls/kdoqi/[email or web address] ca lculator [Automated message] The [...] . SODIUM (test code = 140 mmol/L 566-623 6620-2) POTASSIUM (test code 4.8 mmol/L 3.5-5.3 = 2823-3) CHLORIDE (test code 108 mmol/L 98-110 = 2075-0) CARBON DIOXIDE (test 24 mmol/L 20-32 code = 8-9) CALCIUM (test code = 5.2 mg/dL 8.6-10.4 [place] [address]-9) repeat analysis . PROTEIN, TOTAL (test 7.4 g/dL 6.1-8.1 code = 2885-2) ALBUMIN (test code = 2.4 g/dL 3.6-5.1 L 1751-7) GLOBULIN (test code See_Comment H [Automa allison = 05949-9) message] The system which generated this result transmitted reference range : 1.9 - 3.7 g/dL (calc). The reference range was not used to interpret this result as normal/abnormal . ALBUMIN/GLOBULIN See_Comment L [Automated RATIO (test code = message] The 175-0) system which generated this result transmitted reference range : 1.0 - 2.5 (calc ). The reference range was not used to interpr et this result as normal/abnormal . BILIRUBIN, TOTAL 0.3 mg/dL 0.2-1.2 (test code = 1974-2) ALKALINE PHOSPHATASE 113 U/L 37-153 (test code = 6768-6) AST (test code = 11 U/L 10-35 1920-8) ALT (test code = 7 U/L 6-29 174-6) RAC (test code = Performing RAC) Organization Information: ? ?Site ID: RGA ? ?Name: [facility] ? ?Address: [address] [place] [phone] ? ?Director: COLT FIERRO MD Lab Interpretation Abnormal (test code = 34509-6) [facility] [id number] 19:00:00 Test Item Value Reference Range Interpretation Comments C-REACTIVE PROTEIN 36.3 mg/L See_Comment H [Automat ed (test code = 1987-10) message ] The system which generated this result transmitted reference range : <=8.0. The reference range was not used to interpret this result as normal/abnormal . RAC (test code = Performing RAC) Organization Information: ? ?Site ID: RGA ? ?Name: [facility] ? ?Address: [address] [place] [phone] ? ?Director: COLT FIERRO MD Lab Interpretation Abnormal (test code = 80560-5) [facility]inal[facility] with reflex [id number] 19:00:00 Test Item Value Reference Range Interpretation Comments COLOR (test code = YELLOW YELLOW 5778-6) APPEARANCE (test CLEAR CLEAR code = 5767-9) SPECIFIC GRAVITY 1.001-1.035 (test code = 5811-5) PH (test code = 5-8 5803-2) GLUCOSE (test code = NEGATIVE NEGATIVE 81320-3) BILIRUBIN (test code NEGATIVE NEGATIVE = 5770-3) KETONES (test code = NEGATIVE NEGATIVE 2514-8) BLOOD, UA (test code NEGATIVE NEGATIVE = 5794-3) PROTEIN (test code = TRACE NEGATIVE A 83540-5) NITRITE (test code = NEGATIVE NEGATIVE 5802-4) LEUKOCYTE ESTERASE NEGATIVE NEGATIVE (test code = 5799-2) WBC (test code = NONE SEEN See_Comment [Automated 5821-4) message] The system which generated this result transmitted reference range : < OR = 5 /HPF. The reference range was not used to interpr et this result as normal/abnormal . RBC (test code = NONE SEEN See_Comment [Automated 19521-3) message] The system which generated this result transmitted reference range : < OR = 2 /HPF. The reference range was not used to interpr et this result as normal/abnormal . SQUAMOUS EPITHELIAL NONE SEEN See_Comment [Automa allison CELLS (test code = message] The 41807-9) system which generated this result transmitted reference range : < OR = 5 /HPF. The reference range was not used to interpr et this result as normal/abnormal . BACTERIA (test code NONE SEEN NONE SEEN /HPF = 5769-5) HYALINE CAST (test NONE SEEN NONE SEEN /LPF code = 5796-8) RAC (test code = Performing RAC) Organization Information: ? ?Site ID: RGA ? ?Name: [facility] ? ?Address: [address] [place] [phone] ? ?Director: COLT FIERRO MD Lab Interpretation Abnormal (test code = 33936-8) [facility] URINE W/CR (MICROALBUMIN)2021-12-31 19:00:00 Test Item Value Reference Interpretation Comments Range CREATININE, RANDOM 14 mg/dL 20-275 L URINE (test code = 2161-8) ALBUMIN, URINE 7.8 mg/dL Reference Ran geNot (test code = established 42653-8) MICROALBUMIN/CREATI See_Comment H The ADA defines NINE [...] Information: ? ?Site ID: RGA ? ?Name: [facility] ? ?Address: [address] [place] [phone] ? ?Director: COLT FIERRO MD Lab Interpretation Abnormal (test code = 19805-8) [facility] HealthProtein / creatinine ratio, [id number] 19:00:00 Test Item Value Reference Range Interpretation [...] Information: ? ?Site ID: RGA ? ?Name: [facility] ? ?Address: [address] [place] [address] ? ?Director: COLT FIERRO MD Lab Interpretation Abnormal (test code = 36154-6) [facility] HealthHemoglobin [id number] 19:00:00 Test Item Value Reference Interpretation Comments [...] 7% indicates suboptimal cont rol. A1c targets catilyn uld be individualiz ed based on durati on of diabetes, ag e, comorbid conditions, and other considerations. Currently, no consensus exist s regarding use ofhemoglobin A1 c for diagnosis o f diabetes for children. ? [Automated mess age] The system whic h generated this result transmit allison reference range : <5.7 % of total Hgb. The refere nce range was not u sed to interpret th is result as normal/abnormal . RAC (test code = Performing RAC) Organization Information: ? ?Site ID: RGA ? ?Name: [facility] ? ?Address: [address] [place] [address] ? ?Director: COLT FIERRO MD Lab Interpretation Abnormal (test code = 78926-2) NE [id number] 19:00:00 Test Item Value Reference Range Interpretation Comments NOTE (test See Below This urine was code = 8251-1) analyzed for the presence of WBC , RBC, bacteria, casts, and othe r formed elements . Only those elements seen w ere reported. REPOR T COMMENT:FASTING :NO RAC (test code Performing = RAC) Organization Information: ? ?Site ID: RGA ? ?Name: [facility] ? ?Address: [address] [place] [phone] ? ?Director: COLT FIERRO MD [facility] GLUCOSE (AUTOMATED)2021-12-15 16:49:50 Test Item Value Reference Range Interpretation Comments POCT GLU (test code = 4743134155) 134 mg/dL 70-110 H Lab Interpretation (test code = Abnormal 21770-2) [facility] GLUCOSE (AUTOMATED)2021-12-15 13:01:11 Test Item Value Reference Range Interpretation Comments POCT GLU (test code = 3387519429) 172 mg/dL 70-110 H Lab Interpretation (test code = Abnormal 04655-1) [facility]. METABOLIC PANEL (08891)2021-12-15 10:13:04 Test Item Value Reference Range Interpretation Comments NA (test code = 134 mmol/L 135-145 L 8170705144) K (test code = 3.5 mmol/L 3.5-5.0 3688474488) CL (test code = 109 mmol/L 98-108 H 4597434323) CO2 TOTAL (test code = 18 mmol/L 23-31 L 7233838677) AGAP (test code = 2-16 5962571021) BUN (test code = 48 mg/dL 7-23 H 8730667962) GLUCOSE (test code = 183 mg/dL 70-110 H 5874075807) CREATININE (test code = 1.95 mg/dL 0.50-1.04 H 4345433384) TOTAL BILI (test code = 0.5 mg/dL 0.1-1.0 9850747045) CALCIUM (test code = 5.8 mg/dL 8.6-10.6 LL 2712489734) T PROTEIN (test code = 6.0 g/dL 6.3-8.2 L 0798662896) ALBUMIN (test code = 2.0 g/dL 3.5-5.0 L 2421703114) ALK PHOS (test code = 263 U/L 34-122 H 2162420618) ALTv (test code = 18 U/L 1742-6) AST(SGOT) (test code = 20 U/L 1340 8822358549) eGFR (test code = mL/min/1.73m2 7877621957) FINA (test code = FINA) Association of [...] tests). Lab Interpretation Abnormal (test code = 03967-9) [facility] GLUCOSE (AUTOMATED)2021-12-15 01:37:21 Test Item Value Reference Range Interpretation Comments POCT GLU (test code = 4055710884) 255 mg/dL 70-110 H Lab Interpretation (test code = Abnormal 73876-9) [facility] GLUCOSE (AUTOMATED)2021-12-14 22:08:00 Test Item Value Reference Range Interpretation Comments POCT GLU (test code = 2415481142) 225 mg/dL 70-110 H Lab Interpretation (test code = Abnormal 99316-0) [facility] GLUCOSE (AUTOMATED)2021-12-14 17:14:50 Test Item Value Reference Range Interpretation Comments POCT GLU (test code = 4276165688) 209 mg/dL 70-110 H Lab Interpretation (test code = Abnormal 16699-9) [facility] [id number] 14:42:37 Test Item Value Reference Range Interpretation Comments ELUTION ID (test code Anti-Jka Perfor med at [facility] = 5160) Laboratory [facility] Blood Bank3 [address] [facility] s [address]Wwrz Free: [phone] A No. [id number] [facility] MONOSPECIFIC C3 [id number] 14:03:32 Test Item Value Reference Range Interpretation Comments ZACHARY C3 (test code Weak Positive Performed at [facility] = 1421) Laboratory [facility] Blood [facility]3 [address] [facility] s [address]Qrgu Free: [phone] A No. [id number] [facility] MONOSPECIFIC IGG [id number] 13:47:45 Test Item Value Reference Range Interpretation Comments ZACHARY IGG (test code Positive 2+ Performed at [facility] = 1422) Laboratory [facility] Blood [facility] [address] [facility] s [address]Agec Free: [phone] A No. [id number] [facility] POLYSPECIFIC [id number] 13:47:15 Test Item Value Reference Range Interpretation Comments ZACHARY POLY (test Weak Positive Performed at [facility] code = 1610) Laboratory [facility] Blood Bank3 [address] [facility] s [address]Psgx Free: [phone] A No. [id number] [facility] [id number] 13:19:38 ANTIBODY IDAnti-JkaUndetermined Spec Comment: Performed at [facility] Laboratory Services [facility] Blood [address] [place], [place] [address]Ahoh Free: [phone] No. [id number] [facility]2021-12-14 12:43:10 Test Item Value Reference Range Interpretation Comments POCT GLU (test code = 7906859162) 185 mg/dL 70-110 H Lab Interpretation (test code = Abnormal 93645-5) [facility]. METABOLIC PANEL (26814)2021-12-14 09:53:35 Test Item Value Reference Range Interpretation Comments NA (test code = 132 mmol/L 135-145 L 4750083390) K (test code = 3.8 mmol/L 3.5-5.0 2822139382) CL (test code = 110 mmol/L 98-108 H 8514879259) CO2 TOTAL (test code = 16 mmol/L 23-31 L 3308721362) AGAP (test code = 2-16 4364567317) BUN (test code = 50 mg/dL 7-23 H 1490383424) GLUCOSE (test code = 210 mg/dL 70-110 H 2904801087) CREATININE (test code = 2.17 mg/dL 0.50-1.04 H 0832635950) TOTAL BILI (test code = 0.7 mg/dL 0.1-1.4 3939137743) CALCIUM (test code = 5.7 mg/dL 8.6-10.6 LL 9782808202) T PROTEIN (test code = 5.7 g/dL 6.3-8.2 L 0866460134) ALBUMIN (test code = 1.9 g/dL 3.5-5.0 L 6436854908) ALK PHOS (test code = 315 U/L 34-122 H 8856568547) ALTv (test code = 22 U/L 5-35 1742-6) AST(SGOT) (test code = 38 U/L 13-40 9275764466) eGFR (test code = mL/min/1.73m2 6832830917) FINA (test code = FINA) Association of [...] tests). Lab Interpretation Abnormal (test code = 28119-3) [facility] WITH [id number] 05:21:58 Test Item Value Reference Range Interpretation Comments WBC (test code = See_Comment [Automated 6190-2) message] The sy stem which generated this result transmitted reference range : 4.30 - 11.10 10*3/?L. The reference range was not used to interpret this result as normal/abnormal . RBC (test code = See_Comment L [Automated 419-8) message] The sy stem which generated this [...] RDW-SD (test code = 48.4 fL 39.0-49.9 08654-7) RDW-CV (test code = 15.1 % 12.0-15.5 788-0) PLT (test code = See_Comment L [Automated 777-3) message] The sy stem which generated this result transmitted reference range : 166 - 358 10*3/ ?L. The reference r willem was not used to interpret this result as normal/abnormal . MPV (test code = 14.0 fL 9.5-12.9 H 94519-5) IPF % (test code = 13.3 % 1.3-7.7 H Platelet count 4837909119) measured by fluorescence method. NRBC/100 WBC (test See_Comment [Automat ed code = 2456795621) message] The system which generated this result transmitted reference range : 0.0 - 10.0 /100 WBCs. The refer ence range was not u sed to interpret th is result as normal/abnormal . NRBC x10^3 (test code See_Comment [Auto mated = 2458417965) message] The s ystem which generated this result transmitted reference range : 10*3/?L. The reference range was not used to interpret this result as normal/abnormal . GRAN MAT (NEUT) % 61.2 % (test code = 770-8) IMM GRAN % (test code 19.10 % = 9060580902) LYMPH % (test code = 9.4 % 736-9) MONO % (test code = 9.9 % 5905-5) EOS % (test code = 0.3 % 713-8) BASO % (test code = 0.1 % 706-2) GRAN MAT x10^3(ANC) 4.75 10*3/uL 1.88-7.09 (test code = 2462677219) IMM GRAN x10^3 (test 1.48 10*3/uL 0.00-0.06 H code = 6715418001) LYMPH x10^3 (test code 0.73 10*3/uL 1.32-3.29 L = 731-0) MONO x10^3 (test code 0.77 10*3/uL 0.33-0.92 = 742-7) EOS x10^3 (test code = <0.03 0.03-0.39 L 711-2) BASO x10^3 (test code <0.03 0.01-0.07 = 704-7) BANDS (test code = Increased A 2207032210) TOXIC CHANGES (test Present A code = 803-7) Lab Interpretation Abnormal (test code = 08036-6) [facility]CE Srvcngp7964-99-54 05:06:37 Test Item Value Reference Range Interpretation Comments ABO & RH (test O Positive Performed at [facility] code = 20) Laboratory Serv ices - [facility] Blood [address] [place] [address]Toll Free: [phone] A No. [id number] IAT (test code = Positive Pos AbScree n previously 1185) called to Ki chawla this admit. JCPerfor med at [facility] Laboratory Services - [facility] Blood [address] [place], [place] [address]Xxfs Free: [phone] A No. [id number] [facility]2021-12-14 01:36:17 Test Item Value Reference Range Interpretation Comments POCT GLU (test code = 0576624241) 182 mg/dL 70-110 H Lab Interpretation (test code = Abnormal 32126-6) [facility] [id number] 23:01:25 Test Item Value Reference Range Interpretation Comments Blood Culture-Aerobic No organisms No growth Previo us (test code = 93794-7) isolated prelim inary verified result was Culture [...] Culture-Anaerobic isolated preliminar y (test code = 40729-2) verifi ed result was Culture In Progress [...] CDT Lab Interpretation Normal (test code = 89097-3) [facility] [id number] 23:01:25 Test Item Value Reference Range Interpretation Comments Blood Culture-Aerobic No organisms No growth Previo us (test code = 55506-6) isolated prelim inary verified result was Culture [...] Culture-Anaerobic isolated preliminar y (test code = 08256-5) verifi ed result was Culture In Progress [...] CDT Lab Interpretation Normal (test code = 03033-8) [facility]2021-12-13 22:01:38 Test Item Value Reference Range Interpretation Comments POCT GLU (test code = 0120085133) 231 mg/dL 70-110 H Lab Interpretation (test code = Abnormal 97638-1) [facility]-TERMINAL DLN-[id number] 19:25:08 Test Item Value Reference Range Interpretation Comments NT-proBNP (test code 51706 pg/mL See_Comment H [Autom ated = 6063791515) message] The system which generated this result transmitted reference range : <=125. The reference range was not used to interpret this result as normal/abnormal . FINA (test code = FINA) Biotin has been reported to cause a negative bias, interpret results relative to patient's use of biotin. Lab Interpretation Abnormal (test code = 19906-4) [facility] GLUCOSE (AUTOMATED)2021-12-13 17:23:38 Test Item Value Reference Range Interpretation Comments POCT GLU (test code = 0314030408) 168 mg/dL 70-110 H Lab Interpretation (test code = Abnormal 93972-1) [facility] HospitalANTIGEN TYPING [id number] 14:23:12 Test Item Value Reference Range Interpretation Comments ANTIGEN ID (test Jka Antigen Pre-Sample drawn code = 5072) [facility] Blood [address] [place] [address]Mcml Free: [phone] A No. [id number] [facility] GLUCOSE (AUTOMATED)2021-12-13 12:48:49 Test Item Value Reference Range Interpretation Comments POCT GLU (test code = 3522974395) 116 mg/dL 70-110 H Lab Interpretation (test code = Abnormal 76720-4) [facility] WITH [id number] 10:28:40 Test Item Value Reference Range Interpretation [...] RDW-SD (test code = 48.9 fL 39.0-49.9 51622-8) RDW-CV (test code = 15.1 % 12.0-15.5 788-0) PLT (test code = See_Comment L [Automated 777-3) message] The sy stem which generated this result transmitted reference range : 166 - 358 10*3/ ?L. The reference r willem was not used to interpret this result as normal/abnormal . MPV (test code = 13.5 fL 9.5-12.9 H 12082-8) IPF % (test code = 10.4 % 1.3-7.7 H Platelet count 5718048345) measured by fluorescence method. NRBC/100 WBC (test See_Comment [Automat ed code = 1864430102) message] The system which generated this result transmitted reference range : 0.0 - 10.0 /100 WBCs. The refer ence range was not u sed to interpret th is result as normal/abnormal . NRBC x10^3 (test code See_Comment [Auto mated = 8643032001) message] The s ystem which generated this result transmitted reference range : 10*3/?L. The reference range was not used to interpret this result as normal/abnormal . SEG % (test code = 70 % 33-76 82867-4) BAND % (test code = 11 % 0-1 H 54617-8) META % (test code = 6 % See_Comment H [Automa allison 37026-0) message] The sy stem which generated this result transmitted reference range : <=0. The refere nce range was not u sed to interpret th is result as normal/abnormal . MYELO % (test code = 4 % See_Comment H [Autom ated 58841-0) message] The sy stem which generated this result transmitted reference range : <=0. The refere nce range was not u sed to interpret th is result as normal/abnormal . PROMYELO % (test code 2 % See_Comment H [Auto mated = 08764-4) message] The sy stem which generated this result transmitted reference range : <=0. The refere nce range was not u sed to interpret th is result as normal/abnormal . LYMPH % (test code = 2 % 14-54 L 07012-0) MONO % (test code = 3 % 0-4 73173-1) EOS % (test code = 2 % 0-3 91770-8) ANC (test code = 6.16 10*3/uL 1.88-7.09 753-4) Lab Interpretation Abnormal (test code = 47178-7) [facility] METABOLIC PANEL (NA, K, CL, CO2, GLUCOSE, BUN, CREATININE, CA)2021-12-13 09:46:38 Test Item Value Reference Range Interpretation Comments NA (test code = 132 mmol/L 135-145 L 4810743589) K (test code = 3.7 mmol/L 3.5-5.0 6455248120) CL (test code = 110 mmol/L 98-108 H 7036113158) CO2 TOTAL (test code = 15 mmol/L 23-31 L 6167160099) AGAP (test code = 2-16 8978091039) BUN (test code = 51 mg/dL 7-23 H 0852202395) GLUCOSE (test code = 104 mg/dL 70-110 6066031137) CREATININE (test code = 2.48 mg/dL 0.50-1.04 H 4816314728) CALCIUM (test code = 6.0 mg/dL 8.6-10.6 L 6107737336) eGFR (test code = mL/min/1.73m2 4489179753) FINA (test code = FINA) Association of [...] tests). Lab Interpretation Abnormal (test code = 69616-8) [facility] GLUCOSE (AUTOMATED)2021-12-13 01:38:50 Test Item Value Reference Range Interpretation Comments POCT GLU (test code = 0230373008) 97 mg/dL 70-110 Lab Interpretation (test code = Normal 04940-0) [facility] HospitalVancomycin Random [id number] 23:53:29 Test Item Value Reference Range Interpretation Comments VANCO RANDOM (test code = 16.5 ug/mL 9049156304) [facility] GLUCOSE (AUTOMATED)2021-12-12 21:59:51 Test Item Value Reference Range Interpretation Comments POCT GLU (test code = 3966267602) 144 mg/dL 70-110 H Lab Interpretation (test code = Abnormal 92886-6) [facility] GLUCOSE (AUTOMATED)2021-12-12 16:47:00 Test Item Value Reference Range Interpretation Comments POCT GLU (test code = 4884633290) 180 mg/dL 70-110 H Lab Interpretation (test code = Abnormal 00932-1) [facility] HospitalMisc. Sendout- (1,3)-Hktt-N-Anvlqc (Fungitell) 2021-12-12 16:35:51 Test Item Value Reference Range Interpretation Comments Miscellaneous Test (test See scanned report code = 6527767347) Performing Lab (test code ARUP = 9689371632) [facility] HospitalIONIZED [id number] 15:58:58 Test Item Value Reference Range Interpretation Comments IONIZED CA (test code = 3.40 mg/dL 4.50-5.30 L 4992322387) PH SERUM (test code = 6700749769) 7.35-7.45 Lab Interpretation (test code = Abnormal 96748-5) [facility]2021-12-12 12:19:37 Test Item Value Reference Range Interpretation Comments POCT GLU (test code = 3228974138) 180 mg/dL 70-110 H Lab Interpretation (test code = Abnormal 61796-6) [facility] WITH [id number] 11:15:19 Test Item Value Reference Range Interpretation [...] RDW-SD (test code = 47.0 fL 39.0-49.9 09952-6) RDW-CV (test code = 14.8 % 12.0-15.5 788-0) PLT (test code = See_Comment L [Automated 777-3) message] The sy stem which generated this result transmitted reference range : 166 - 358 10*3/ ?L. The reference r willem was not used to interpret this result as normal/abnormal . MPV (test code = 13.0 fL 9.5-12.9 H 30582-2) IPF % (test code = 11.3 % 1.3-7.7 H Platelet count 5125907738) measured by fluorescence method. NRBC/100 WBC (test See_Comment [Automat ed code = 6714194416) message] The system which generated this result transmitted reference range : 0.0 - 10.0 /100 WBCs. The refer ence range was not u sed to interpret th is result as normal/abnormal . NRBC x10^3 (test code See_Comment [Auto mated = 9198577172) message] The s ystem which generated this result transmitted reference range : 10*3/?L. The reference range was not used to interpret this result as normal/abnormal . SEG % (test code = 44 % 33-76 63715-7) BAND % (test code = 32 % 0-1 H 26452-0) META % (test code = 5 % See_Comment H [Automa allison 10730-6) message] The sy stem which generated this result transmitted reference range : <=0. The refere nce range was not u sed to interpret th is result as normal/abnormal . MYELO % (test code = 4 % See_Comment H [Autom ated 47391-3) message] The sy stem which generated this result transmitted reference range : <=0. The refere nce range was not u sed to interpret th is result as normal/abnormal . PROMYELO % (test code 2 % See_Comment H [Auto mated = 70409-8) message] The sy stem which generated this result transmitted reference range : <=0. The refere nce range was not u sed to interpret th is result as normal/abnormal . LYMPH % (test code = 6 % 14-54 L 88530-4) MONO % (test code = 6 % 0-4 H 77497-0) EOS % (test code = 1 % 0-3 77751-7) ANC (test code = 5.73 10*3/uL 1.88-7.09 753-4) Lab Interpretation Abnormal (test code = 86521-9) [facility] (NA, K, CL, CO2, GLUCOSE, BUN, CREATININE, CA)2021-12-12 10:17:58 Test Item Value Reference Range Interpretation Comments NA (test code = 130 mmol/L 135-145 L 3725259718) K (test code = 3.6 mmol/L 3.5-5.0 8674199267) CL (test code = 109 mmol/L 98-108 H 5741057601) CO2 TOTAL (test code = 15 mmol/L 23-31 L 4230017574) AGAP (test code = 2-16 9110532520) BUN (test code = 52 mg/dL 7-23 H 7016928003) GLUCOSE (test code = 173 mg/dL 70-110 H 3791460732) CREATININE (test code = 2.58 mg/dL 0.50-1.04 H 6009319646) CALCIUM (test code = 5.3 mg/dL 8.6-10.6 LL 0225264398) eGFR (test code = mL/min/1.73m2 7024431552) FINA (test code = FINA) Association of [...] tests). Lab Interpretation Abnormal (test code = 74417-4) [facility]08:53 Test Item Value Reference Range Interpretation Comments MAGNESIUM (test code = 4350129998) 2.2 mg/dL 1.7-2.4 Lab Interpretation (test code = Normal 06515-7) [facility] 10:08:53 Test Item Value Reference Range Interpretation Comments PHOSPHORUS (test code = 8690829058) 2.6 mg/dL 2.5-5.0 Lab Interpretation (test code = Normal 13354-8) [facility]ATED)2021-12-12 02:17:16 Test Item Value Reference Range Interpretation Comments POCT GLU (test code = 1875741647) 115 mg/dL 70-110 H Lab Interpretation (test code = Abnormal 31818-2) [facility]CBC WITHOUT [id number] 00:08:55 Test Item Value Reference Range Interpretation Comments WBC (test code = See_Comment [Automated message] 6690-2) The system [employer] generated this result transmitted ref erence range: 4.30 - 1 1.10 10*3/?L. The reference range was not used to int erpret this result as normal/abnormal . RBC (test code = 789-8) See_Comment L [Au tomated message] The system [employer] generated this result transmitted ref erence range: [...] See_Comment L [Au tomated message] The system [employer] generated this result transmitted ref erence range: 166 - 35 8 10*3/?L. The reference range was not used to int erpret this result as normal/abnormal . MPV (test code = 12.9 fL 9.5-12.9 68541-5) RDW-CV (test code = 14.6 % 12.0-15.5 788-0) RDW-SD (test code = 47.0 fL 39.0-49.9 85315-6) NRBC x10^3 (test code = See_Comment [Au tomated message] 7653454243) The system [employer] generated this result transmitted ref erence range: 10*3/?L. The reference range was not used to int erpret this result as normal/abnormal . NRBC/100 WBC (test code See_Comment [Au tomated message] = 7099622934) The system [employer] generated this result transmitted ref erence range: 0.0 - 10 .0 /100 WBCs. The reference range was not used to int erpret this result as normal/abnormal . IPF % (test code = 12.2 % 1.3-7.7 H Platelet count 4377005274) measured by fluorescence me thod. Lab Interpretation Abnormal (test code = 80144-0) [facility]com[facility] Random [id number] 00:07:15 Test Item Value Reference Range Interpretation Comments VANCO RANDOM (test code = 21.2 ug/mL 9085899170) [facility] GLUCOSE (AUTOMATED)2021-12-11 21:57:08 Test Item Value Reference Range Interpretation Comments POCT GLU (test code = 0960607838) 132 mg/dL 70-110 H Lab Interpretation (test code = Abnormal 05109-0) [facility] Hospital[facility]are Packed RBC (in units)2021-12-11 17:50:14 Test Item Value Reference Range Interpretation Comments Unit Blood Type (test O Pos code = 4410) ISBT Blood Type Code (test code = 813621) Unit Number (test [id number] code = 4411) Blood Expiration Date & Time (test code = 119043) Status Information Issued (test code = 4412) Product Red Blood Cells Identification (test code = 4413) Product Code (test Y2660C54 Performed at [facility] code = 4414) Laboratory Services - [facility] [address] [place] [address]Kkhb Free: [phone] A No. [id number] Cross Match Result Compatible (test code = 4409) [facility] GLUCOSE (AUTOMATED)2021-12-11 16:30:47 Test Item Value Reference Range Interpretation Comments POCT GLU (test code = 1050552747) 127 mg/dL 70-110 H Lab Interpretation (test code = Abnormal 28622-1) [facility] WITH [id number] 10:39:55 Test Item Value Reference Range Interpretation [...] RDW-SD (test code = 45.8 fL 39.0-49.9 36941-3) RDW-CV (test code = 14.3 % 12.0-15.5 788-0) PLT (test code = See_Comment L [Automated 777-3) message] The sy stem which generated this result transmitted reference range : 166 - 358 10*3/ ?L. The reference r willem was not used to interpret this result as normal/abnormal . MPV (test code = 13.5 fL 9.5-12.9 H 83910-8) IPF % (test code = 14.6 % 1.3-7.7 H Platelet count 1851461324) measured by fluorescence method. NRBC/100 WBC (test See_Comment [Automat ed code = 8569098435) message] The system which generated this result transmitted reference range : 0.0 - 10.0 /100 WBCs. The refer ence range was not u sed to interpret th is result as normal/abnormal . NRBC x10^3 (test code See_Comment [Auto mated = 5309739891) message] The s ystem which generated this result transmitted reference range : 10*3/?L. The reference range was not used to interpret this result as normal/abnormal . SEG % (test code = 61 % 33-76 88803-1) BAND % (test code = 22 % 0-1 H 64973-9) META % (test code = 5 % See_Comment H [Automa allison 24528-3) message] The sy stem which generated this result transmitted reference range : <=0. The refere nce range was not u sed to interpret th is result as normal/abnormal . MYELO % (test code = 3 % See_Comment H [Autom ated 81185-5) message] The sy stem which generated this result transmitted reference range : <=0. The refere nce range was not u sed to interpret th is result as normal/abnormal . PROMYELO % (test code 1 % See_Comment H [Auto mated = 67837-7) message] The sy stem which generated this result transmitted reference range : <=0. The refere nce range was not u sed to interpret th is result as normal/abnormal . LYMPH % (test code = 4 % 14-54 L 05293-5) MONO % (test code = 4 % 0-4 80748-1) ANC (test code = 7.46 10*3/uL 1.88-7.09 H 753-4) DOHLE BODIES (test Present A code = 7792-5) TOXIC CHANGES (test Present A code = 803-7) Lab Interpretation Abnormal (test code = 88390-4) [facility] METABOLIC PANEL (NA, K, CL, CO2, GLUCOSE, BUN, CREATININE, CA)2021-12-11 10:04:43 Test Item Value Reference Range Interpretation Comments NA (test code = 132 mmol/L 135-145 L 1297489036) K (test code = 3.8 mmol/L 3.5-5.0 1146099693) CL (test code = 109 mmol/L 98-108 H 1699449885) CO2 TOTAL (test code = 16 mmol/L 23-31 L 3258525151) AGAP (test code = 2-16 9328772667) BUN (test code = 53 mg/dL 7-23 H 6381519416) GLUCOSE (test code = 103 mg/dL 70-110 6425936786) CREATININE (test code = 2.63 mg/dL 0.50-1.04 H 5635636841) CALCIUM (test code = 5.7 mg/dL 8.6-10.6 LL 1046095714) eGFR (test code = mL/min/1.73m2 8085614328) FINA (test code = FINA) Association of [...] tests). Lab Interpretation Abnormal (test code = 58851-2) [facility] 09:57:48 Test Item Value Reference Range Interpretation Comments MAGNESIUM (test code = 0389358737) 2.3 mg/dL 1.7-2.4 Lab Interpretation (test code = Normal 02924-4) [facility] HospitalTransfusion Reaction Rpdtojtgwoyzj7323-81-12 09:35:28 Test Item Value Reference Range Interpretation Comments POST IAT (test Positive Performed at [facility] code = 2111) Laboratory [facility] Blood [address] [address]Ykdq Free: [phone] A No. [id number] PRE IAT (test Negative Performed at [facility] code = 2112) Laboratory [facility] Blood [address] [address]Nqwe Free: [phone] A No. [id number] PRE ABO & RH O Positive Performed at [facility] (test code = Laboratory [place] [address] Blood [address] [address]Ystm Free: [phone] A No. [id number] PRE XM INT (test Incompatible [id number] 13 code = 1632) Z8260Lsbhuivxh at [facility] Laboratory [facility] Blood [address] [address]Lbii Free: [phone] A No. [id number] POST IGG (test Weak Positive Performed at [facility] code = 1618) Laboratory [facility] Blood [address] [address]Vwmn Free: [phone] A No. [id number] POST C3 (test Negative Performed at [facility] code = 1617) Laboratory [facility] Blood [address] [address]Asyc Free: [phone] A No. [id number] POST XM INT (test Incompatible E041242066 913 code = 1596) I6873Jdisxtngt at [facility] Laboratory [facility] Blood [address] [address]Keeg Free: [phone] A No. [id number] [facility] HospitalTRXN OJDJEY-[id number] 09:26:48 Test Item Value Reference Range Interpretation Comments CLERICAL CK AcceptableSee Units transfus ed and (test code = Comment unavailable.Per forme 542) d at [facility] Labor atory Services - [facility] Blood [place] [address]Toll Free: [phone] A No. [id number] PRE SERUM (test No Hemolysis NotedNo Perf ormed at [facility] code = 1637) Icterus Noted Laboratory Ser [place] [address]Toll Free: [phone] A No. [id number] PRE ZACHARY (test Negative Performed at [facility] code = 1636) Laboratory Serv [place] [address]Toll Free: [phone] A No. [id number] POST ABO & RH O Positive Performed at [facility] (test code = Laboratory Serv ice 1616) [place] [address]Toll Free: [phone] A No. [id number] POST ZACHARY (test Weak Positive Performed at [facility] code = 1619) Laboratory Serv [place] [address]Toll Free: [phone] A No. [id number] POST SERUM No Hemolysis NotedNo Perform ed at [facility] (test code = Icterus Noted Laboratory Ser vices 1620) [place] [address]Toll Free: [phone] A No. [id number] PRELIM RESULT Positive TxRxn Positive: Ex tended (test code = investigation i n 3962) process; Blood Bank physician interpretation to follow.Performe d at [facility] Laboratory Services - [facility] Blood [place] [address]Toll Free: [phone] A No. [id number] PRODUCT (test RBC- See comment [id number] 077 E0332, code = 2110) [id number] E 0332, [id number] F9131Sjbfbhpdq at [facility] Laboratory Services [facility] Blood [address] [place], [place] [address]Xnlr Free: [phone] A No. [id number] [facility] [id number] 07:40:49 ANTIBODY IDAnti-JkaUndetermined Spec Comment: Performed at [facility] Laboratory Services [facility] Blood [address] [address]Ifdv Free: [phone] No. [id number] [facility] NUPAUEUBOCLZAT0630-83-97 07:40:47 Test Item Value Reference Range Interpretation Comments ELUTION ID (test code Negative Eluate nonreactive with = 5160) all cells tested.Performe d at [facility] Laboratory [facility] Blood [facility]3 [address] [facility] [address]Gezu Free: [phone] A No. [id number] [facility] GLUCOSE (AUTOMATED)2021-12-11 01:44:40 Test Item Value Reference Range Interpretation Comments POCT GLU (test code = 1001030001) 165 mg/dL 70-110 H Lab Interpretation (test code = Abnormal 63803-0) [facility] GLUCOSE (AUTOMATED)2021-12-10 23:49:31 Test Item Value Reference Range Interpretation Comments POCT GLU (test code = 0493127735) 221 mg/dL 70-110 H Lab Interpretation (test code = Abnormal 30169-5) [facility] HospitalType and Screen - ONCE Dllwykr5155-94-82 22:55:36 Test Item Value Reference Range Interpretation Comments ABO & RH (test code O Positive Performe d at [facility] = 20) Laboratory [facility] Blood Bank[address] [place], [place] [address]Lzll Free: [phone] A No. [id number] IAT (test code = Positive Performed a t [facility] 1185) Laboratory [facility] Blood [facility] [address] [place], [place] [address]Syke Free: [phone] A No. [id number] [facility] HospitalTHYROID STIMULATING [id number] 21:54:55 Test Item Value Reference Range Interpretation Comments TSH (test code = See_Comment [Automated message] 8985910110) The system whic h generated this result transmitted ref erence range: 0.45 - 4 .70 mIU/L. The refe rence range was not u sed to interpret this result as normal/abnor mal. Lab Interpretation (test Normal code = 06980-8) [facility]CB WITH [id number] 21:31:03 Test Item Value Reference Range Interpretation Comments WBC (test code = See_Comment [Automated 3190-2) message] The system which generated this result [...] RDW-SD (test code = 45.0 fL 39.0-49.9 48759-4) RDW-CV (test code = 14.4 % 12.0-15.5 788-0) PLT (test code = See_Comment L [Automated 777-3) message] The system which generated this result transmit allison reference range : 166 - 358 10*3/ ?L. The reference range was not u sed to interpret th is result as normal/abnormal . MPV (test code = 14.5 fL 9.5-12.9 H 70617-3) IPF % (test code = 14.1 % 1.3-7.7 H Platelet count 8090549108) measured by fluorescence method. NRBC/100 WBC (test See_Comment [Automat ed code = 9528285839) message] The system which generated this result transmit allison reference range : 0.0 - 10.0 /100 WBCs. The reference range was not used to interpret this result as normal/abnormal . NRBC x10^3 (test code See_Comment [Auto mated = 4380427287) message] The system which generated this result transmit allison reference range : 10*3/?L. The reference range was not used to interpret this result as normal/abnormal . SEG % (test code = 50 % 33-76 52153-9) BAND % (test code = 26 % 0-1 H 44877-5) META % (test code = 4 % See_Comment H [Automa allison 29426-2) message] The system which generated this result transmit allison reference range : <=0. The refere nce range was not u sed to interpret th is result as normal/abnormal . MYELO % (test code = 4 % See_Comment H [Autom ated 32210-0) message] The system which generated this result transmit allison reference range : <=0. The refere nce range was not u sed to interpret th is result as normal/abnormal . PROMYELO % (test code 2 % See_Comment H [Auto mated = 12135-1) message] The system which generated this result transmit allison reference range : <=0. The refere nce range was not u sed to interpret th is result as normal/abnormal . LYMPH % (test code = 10 % 14-54 L 40933-1) MONO % (test code = 4 % 0-4 05086-0) EOS % (test code = 2 % 0-3 75059-3) ANC (test code = 3.86 10*3/uL 1.88-7.09 753-4) DOHLE BODIES (test Present A code = 7792-5) TOXIC CHANGES (test Present A code = 803-7) FINA (test code = FINA) Reviewed by Leonardo Costello M.D., Director of HEMATOPATHOLOGY . Lab Interpretation Abnormal (test code = 27187-6) [facility] HospitalVancomycin Random [id number] 21:27:29 Test Item Value Reference Range Interpretation Comments VANCO RANDOM (test code = 14.9 ug/mL 2407413684) [facility] HospitalPOMI GLUCOSE (AUTOMATED)2021-12-10 19:33:49 Test Item Value Reference Range Interpretation Comments POCT GLU (test code = 1659519657) 204 mg/dL 70-110 H Lab Interpretation (test code = Abnormal 29234-0) [facility] CULTURE [id number] 19:01:23 Test Item Value Reference Range Interpretation Comments Blood Culture-Aerobic No organisms No growth Previo us (test code = 18546-0) isolated prelim inary verified result was Culture [...] Culture-Anaerobic isolated preliminar y (test code = 45036-4) verifi ed result was Culture In Progress [...] CDT Lab Interpretation Normal (test code = 95783-8) [facility] CULTURE [id number] 19:01:23 Test Item Value Reference Range Interpretation Comments Blood Culture-Aerobic No organisms No growth Previo us (test code = 30914-5) isolated prelim inary verified result was Culture [...] Culture-Anaerobic isolated preliminar y (test code = 00550-7) verifi ed result was Culture In Progress [...] CDT Lab Interpretation Normal (test code = 36976-1) [facility] HospitalHLA-ABC-DR TYPING [id number] 19:01:00 Test Item Value Reference Range Interpretation [...] additional antigen not yet identified. Performed at [facility] Pathology Clinical Services Laboratories - Tissue AntigenDIRECTOR: ?MISA MARY MD, DRL[address] [place] [address] ?[address]Yknsq: [phone] No. [id number] ANALYTE SPECIFIC REAGENT STATEMENT: ?This test was developed and its performance characteristics determined by the [facility] Tissue Antigen Laboratory. ?The test has not been cleared or approved by the [place] [employer] (USFDA). ?The USFDA does not require licensing of reagents used in these tests. VERIFIED BY: ?Osmany Pinedo (electronic signature) 12/10/2021 REPORT DTE (test 12/10/2021 code = 3094) TECH (test code = SM/CA 3095) [facility] HospitalANTIBODY SCREEN [id number] 18:59:00 Test Item Value Reference Range Interpretation [...] Luminex 3209) COMMENTS (test code Performed at [facility] = 3210) Pathology Clinical Services Laboratories - Tissue AntigenDIRECTOR: ?MISA MARY MD, CFA[address] [place] [address] ?[address]Xrcui: [phone] No. [id number] ANALYTE SPECIFIC REAGENT STATEMENT: ?This test was developed and its performance characteristics determined by the [facility] Tissue Antigen Laboratory. ?The test has not been cleared or approved by the [place] [employer] (USFDA). ?The USFDA does not require licensing of reagents used in these tests. VERIFIED BY: ?Osmany Pinedo (electronic signature) 12/10/2021 REPORT DTE (test 12/10/2021 code = 3211) TECH (test code = RR 3212) [facility] HospitalTransthoracic echo (TTE)2021-12-10 18:42:37 Test Item Value Reference Range Interpretation Comments Height (test code = in 7416132877) Weight (test code = lbs 4813303133) Systolic BP (test code = mmHg 8308996741) Diastolic BP (test code = mmHg 6384429974) Heart Rate (test code = bpm 6105751194) LVOT stroke volume (test 63.10 cm3 code = 9660015842) EF(Teich) (test code = 76.50 % 4122551872) LVIDD (test code = 4.60 cm 7354651432) LVIDS (test code = 2.50 cm 5926343569) IVS (test code = 0.86 cm 5999403397) LVPWD (test code = 0.86 cm 8253550739) LVOT diameter (test code = 2.01 cm 8172833224) FS (test code = 45 % 5617294285) MV Peak E Cathryn (test code = 126.4 cm/s 2034390462) MV Peak A Cathryn (test code = 105.6 cm/s 7014694545) E/A ratio (test code = ratio 7101210532) E wave decelartion time 0.24 s (test code = 1773025948) MV E/e' septal (test code 7.1 cm/s = 8270061970) LA Volume Index (BP) (test 40.5 mL/m2 code = 8046822978) LA volume (BP) (test code 81.8 mL = 0901041906) LVOT peak cathryn (test code = 106.1 cm/s 6332782542) LVOT mn grad (test code = mmHg 0182494691) BSA (test code = 2.02 m2 9057114133) LA size (test code = 4.2 cm 8649438228) LAV(MOD-sp2) (test code = 76.30 mL 5753595716) LAV(MOD-sp4) (test code = 77.30 mL 6675624253) Tapse (test code = 2.31 cm 2552312810) Aortic valve mean velocity 167.9 cm/s (test code = 7575404049) Ao peak cathryn (test code = 255.3 cm/s 3436637365) Ao VTI (test code = 44.3 cm 5093512864) AV LVOT peak gradient mmHg (test code = 3786250544) LVOT peak VTI (test code = 19.9 cm 7883707368) AV area by cont VTI (test 1.4 cm2 code = 3137615195) AV area peak cathryn (test 1.3 cm2 code = 6282016665) LV V1 mean (test code = 70.80 cm/s 4892499040) Ao max PG (test code = 26.10 mm[Hg] 1923555313) MV Prop V (test code = 59.80 cm/s 9446393068) Ao root annulus (test code 3.3 cm = 1740715781) Ao root diam (test code = 3.30 cm 0356885115) AV peak gradient (test mmHg code = 0375530312) AV valve area (test code = 1.42 cm2 7421078943) AV mean gradient (test mmHg code = 6010719527) Aortic root (test code = 3.3 cm 6713359142) PW (test code = 0.86 cm 0.6-1.4 1811996483) EF - 2D (test code = 76.50 % 63578208) Interventricular Septum 0.86 cm Diastolic Thickness by 2D (test code = 2283279) Radiology Study observation (narrative) (test code = 34124-8) FINA (test code = FINA) ?Left?Ventricle: No regional wall motion abnormalities. Normal systolic function with a visually estimated EF of 65 - 70%. There is impaired relaxation. ?Right?Ventricle: Right ventricle is normal in size and function. ?Left?Atrium: Left atrium is moderately dilated. [facility] GLUCOSE (AUTOMATED)2021-12-10 16:49:01 Test Item Value Reference Range Interpretation Comments POCT GLU (test code = 4255209990) 173 mg/dL 70-110 H Lab Interpretation (test code = Abnormal 55259-0) [facility] GLUCOSE (AUTOMATED)2021-12-10 14:20:52 Test Item Value Reference Range Interpretation Comments POCT GLU (test code = 5874134175) 147 mg/dL 70-110 H Lab Interpretation (test code = Abnormal 38891-7) [facility] GLUCOSE (AUTOMATED)2021-12-10 12:57:11 Test Item Value Reference Range Interpretation Comments POCT GLU (test code = 4404556705) 123 mg/dL 70-110 H Lab Interpretation (test code = Abnormal 70303-3) [facility] WITH [id number] 10:54:10 Test Item Value Reference Range Interpretation [...] RDW-SD (test code = 45.3 fL 39.0-49.9 16947-4) RDW-CV (test code = 14.1 % 12.0-15.5 788-0) PLT (test code = See_Comment L [Automated 777-3) message] The sy stem which generated this result transmitted reference range : 166 - 358 10*3/ ?L. The reference r willem was not used to interpret this result as normal/abnormal . MPV (test code = Not Measure d 62365-5) IPF % (test code = 18.6 % 1.3-7.7 H Platelet count 8922112483) measured by fluorescence method. NRBC/100 WBC (test See_Comment [Automat ed code = 7696932128) message] The system which generated this result transmitted reference range : 0.0 - 10.0 /100 WBCs. The refer ence range was not u sed to interpret th is result as normal/abnormal . NRBC x10^3 (test code See_Comment [Auto mated = 9537081812) message] The s ystem which generated this result transmitted reference range : 10*3/?L. The reference range was not used to interpret this result as normal/abnormal . SEG % (test code = 30 % 33-76 L 59859-4) BAND % (test code = 47 % 0-1 H 73041-8) META % (test code = 4 % See_Comment H [Automa allison 19666-9) message] The sy stem which generated this result transmitted reference range : <=0. The refere nce range was not u sed to interpret th is result as normal/abnormal . MYELO % (test code = 4 % See_Comment H [Autom ated 83389-3) message] The sy stem which generated this result transmitted reference range : <=0. The refere nce range was not u sed to interpret th is result as normal/abnormal . LYMPH % (test code = 7 % 14-54 L 35462-8) REACT LYMPH % (test 2 % code = 3849730595) MONO % (test code = 4 % 0-4 29043-7) EOS % (test code = 2 % 0-3 42932-1) ANC (test code = 3.34 10*3/uL 1.88-7.09 753-4) DOHLE BODIES (test Present A code = 7792-5) TOXIC CHANGES (test Present A code = 803-7) Lab Interpretation Abnormal (test code = 25984-5) [facility] HospitalHEPATIC FUN[facility] PAN[facility] (50[address]) (ALB,T.PRO,BILI T,BU/BC,ALT,AST,ALK PHOS)2021-12-10 10:18:06 Test Item Value Reference Range Interpretation Comments TOTAL BILI (test code = 0795916930) 0.5 mg/dL 0.1-1.1 BILI UNCON (test code = 1370276812) 0.2 mg/dL 0.1-1.1 BILI CONJ (test code = 6554345766) 0.0 mg/dL 0.0-0.3 T PROTEIN (test code = 0634551810) 5.2 g/dL 6.3-8.2 L ALBUMIN (test code = 8005058807) 2.1 g/dL 3.5-5.0 L ALK PHOS (test code = 9326625091) 114 U/L 34-122 ALTv (test code = 1742-6) 22 U/L 5-35 AST(SGOT) (test code = 0949106538) 56 U/L 13-40 H Lab Interpretation (test code = Abnormal 84521-5) [facility]BAS[facility] METABOLIC PANEL (NA, K, CL, CO2, GLUCOSE, BUN, CREATININE, CA)2021-12-10 10:17:46 Test Item Value Reference Range Interpretation Comments NA (test code = 132 mmol/L 135-145 L 9252703350) K (test code = 4.2 mmol/L 3.5-5.0 5602527517) CL (test code = 106 mmol/L 98-108 6615326717) CO2 TOTAL (test code = 19 mmol/L 23-31 L 2024993644) AGAP (test code = 2-16 0594809366) BUN (test code = 48 mg/dL 7-23 H 2134340644) GLUCOSE (test code = 102 mg/dL 70-110 3136123566) CREATININE (test code = 2.53 mg/dL 0.50-1.04 H 8627338139) CALCIUM (test code = 6.2 mg/dL 8.6-10.6 L 6143794718) eGFR (test code = mL/min/1.73m2 6934511390) FINA (test code = FINA) Association of [...] tests). Lab Interpretation Abnormal (test code = 31784-5) [facility]46 Test Item Value Reference Range Interpretation Comments MAGNESIUM (test code = 1151020109) 2.2 mg/dL 1.7-2.4 Lab Interpretation (test code = Normal 23486-0) [facility] [id number] 10:08:44 Test Item Value Reference Range Interpretation Comments IONIZED CA (test code = 3.90 mg/dL 4.50-5.30 L 4852904546) PH SERUM (test code = 5728180817) 7.35-7.45 L Lab Interpretation (test code = Abnormal 28112-5) [facility] Whole [id number] 09:34:40 Test Item Value Reference Range Interpretation Comments LACTIC ACID (test code = 2.00 mmol/L 0.50-2.20 7183874014) Lab Interpretation (test code = Normal 85303-0) [facility] GLUCOSE (AUTOMATED)2021-12-10 06:46:49 Test Item Value Reference Range Interpretation Comments POCT GLU (test code = 1667560718) 89 mg/dL 70-110 Lab Interpretation (test code = Normal 94246-9) [facility] GLUCOSE (AUTOMATED)2021-12-10 04:17:39 Test Item Value Reference Range Interpretation Comments POCT GLU (test code = 6304150908) 73 mg/dL 70-110 Lab Interpretation (test code = Normal 62195-5) [facility] GLUCOSE (AUTOMATED)2021-12-10 02:04:59 Test Item Value Reference Range Interpretation Comments POCT GLU (test code = 1847326160) 92 mg/dL 70-110 Lab Interpretation (test code = Normal 59808-6) [facility] + Lactic [id number] 23:44:18 Test Item Value Reference Range Interpretation Comments PH (test code = 2) 7.35-7.45 PCO2 (test code = See_Comment L [Automate d 6357675146) message] The sy stem which generated this result transmitted reference range : 35 - 45 mmHg. The reference range was not used to interpret this result as normal/abnormal . PO2 (test code = See_Comment L [Automated 6937780632) message] The sy stem which generated this result transmitted reference range : 80 - 100 mmHg. The reference range was not used to interpret this result as normal/abnormal . HCO3 (test code = See_Comment L [Automate d 9410165936) message] The sy stem which generated this result transmitted reference range : 22 - 26 mEq/L. The reference range was not used to interpret this result as normal/abnormal . BE (test code = See_Comment L [Automated 0347325249) message] The sy stem which generated this result transmitted reference range : -3.0 - 3.0 mEq/ L. The reference r willem was not used to interpret this result as normal/abnormal . THB (test code = 8.5 g/dL 12.0-16.0 L 3406722056) %O2HB (test code = 91.2 % 94.0-99.0 L 6877893375) %COHB ART (test code = 0.0 % 0.0-1.5 1276362340) %METHB ART (test code = 0.4 % 0.4-1.5 8141036210) VOL%O2 ART (test code = 11.0 % 15.0-23.0 L 7163952007) NA (test code = 131 mmol/L 135-145 L 5104008246) K+ (test code = 4.0 mmol/L 3.5-5.0 9182055856) AC CA IONZ (test code = 3.80 mg/dL 4.50-5.30 L 1193376058) GLUCOSE (test code = 128 mg/dL 70-110 H 9596724407) LACTIC ACID (test code 2.20 mmol/L 0.50-2.20 = 5152689976) Lab Interpretation Abnormal (test code = 72376-6) [facility] GLUCOSE (AUTOMATED)2021-12-09 23:39:26 Test Item Value Reference Range Interpretation Comments POCT GLU (test code = 1240734234) 141 mg/dL 70-110 H Lab Interpretation (test code = Abnormal 23655-7) [facility] GLUCOSE (AUTOMATED)2021-12-09 21:17:09 Test Item Value Reference Range Interpretation Comments POCT GLU (test code = 4660053371) 160 mg/dL 70-110 H Lab Interpretation (test code = Abnormal 55565-4) [facility] GLUCOSE (AUTOMATED)2021-12-09 19:01:44 Test Item Value Reference Range Interpretation Comments POCT GLU (test code = 2954968862) 169 mg/dL 70-110 H Lab Interpretation (test code = Abnormal 94459-9) [facility] GLUCOSE (AUTOMATED)2021-12-09 16:53:55 Test Item Value Reference Range Interpretation Comments POCT GLU (test code = 7413324642) 171 mg/dL 70-110 H Lab Interpretation (test code = Abnormal 86976-5) [facility] GLUCOSE (AUTOMATED)2021-12-09 13:21:51 Test Item Value Reference Range Interpretation Comments POCT GLU (test code = 7466437888) 178 mg/dL 70-110 H Lab Interpretation (test code = Abnormal 36839-5) [facility] GLUCOSE (AUTOMATED)2021-12-09 10:42:59 Test Item Value Reference Range Interpretation Comments POCT GLU (test code = 8711695942) 177 mg/dL 70-110 H Lab Interpretation (test code = Abnormal 10909-8) [facility] WITH [id number] 10:41:39 Test Item Value Reference Range Interpretation Comments WBC (test code = See_Comment LL [Automated 6690-2) message] The sy stem which generated this result transmitted reference range : 4.30 - 11.10 10*3/?L. The reference range was not used to interpret this result as normal/abnormal . RBC (test code = See_Comment L [Automated 709-8) message] The sy stem which generated this [...] RDW-SD (test code = 44.7 fL 39.0-49.9 10865-0) RDW-CV (test code = 13.7 % 12.0-15.5 788-0) PLT (test code = See_Comment LL [Automated 777-3) message] The sy stem which generated this result transmitted reference range : 166 - 358 10*3/ ?L. The reference r willem was not used to interpret this result as normal/abnormal . MPV (test code = Not Measure d 60924-6) IPF % (test code = 23.6 % 1.3-7.7 H Platelet count 0190336324) measured by fluorescence method. NRBC/100 WBC (test See_Comment [Automat ed code = 9457964752) message] The system which generated this result transmitted reference range : 0.0 - 10.0 /100 WBCs. The refer ence range was not u sed to interpret th is result as normal/abnormal . NRBC x10^3 (test code See_Comment [Auto mated = 6760469520) message] The s ystem which generated this result transmitted reference range : 10*3/?L. The reference range was not used to interpret this result as normal/abnormal . SEG % (test code = 16 % 33-76 L 43320-8) BAND % (test code = 14 % 0-1 H 93165-1) META % (test code = 2 % See_Comment H [Automa allison 92533-1) message] The sy stem which generated this result transmitted reference range : <=0. The refere nce range was not u sed to interpret th is result as normal/abnormal . MYELO % (test code = 2 % See_Comment H [Autom ated 31139-5) message] The sy stem which generated this result transmitted reference range : <=0. The refere nce range was not u sed to interpret th is result as normal/abnormal . LYMPH % (test code = 47 % 14-54 24580-8) MONO % (test code = 12 % 0-4 H 13655-6) EOS % (test code = 6 % 0-3 H 75848-7) ANC (test code = 0.38 10*3/uL 1.88-7.09 L 753-4) TOXIC CHANGES (test Present A code = 803-7) Lab Interpretation Abnormal (test code = 77101-6) [facility] METABOLIC PANEL (NA, K, CL, CO2, GLUCOSE, BUN, CREATININE, CA)2021-12-09 10:03:04 Test Item Value Reference Range Interpretation Comments NA (test code = 134 mmol/L 135-145 L 0902337155) K (test code = 4.0 mmol/L 3.5-5.0 7650684540) CL (test code = 108 mmol/L 98-108 0530409139) CO2 TOTAL (test code = 20 mmol/L 23-31 L 6854145726) AGAP (test code = 2-16 9081299640) BUN (test code = 41 mg/dL 7-23 H 3604453015) GLUCOSE (test code = 170 mg/dL 70-110 H 9136569014) CREATININE (test code = 2.07 mg/dL 0.50-1.04 H 9855502205) CALCIUM (test code = 5.9 mg/dL 8.6-10.6 LL 5147345537) eGFR (test code = mL/min/1.73m2 9762381592) FINA (test code = FINA) Association of [...] tests). Lab Interpretation Abnormal (test code = 22738-9) [facility] Test Item Value Reference Range Interpretation Comments MAGNESIUM (test code = 1955309600) 2.0 mg/dL 1.7-2.4 Lab Interpretation (test code = Normal 47144-7) [facility] GLUCOSE (AUTOMATED)2021-12-09 06:58:38 Test Item Value Reference Range Interpretation Comments POCT GLU (test code = 6750624362) 170 mg/dL 70-110 H Lab Interpretation (test code = Abnormal 87047-0) [facility] GLUCOSE (AUTOMATED)2021-12-09 04:01:33 Test Item Value Reference Range Interpretation Comments POCT GLU (test code = 4838796876) 178 mg/dL 70-110 H Lab Interpretation (test code = Abnormal 17833-5) [facility] GLUCOSE (AUTOMATED)2021-12-09 00:51:45 Test Item Value Reference Range Interpretation Comments POCT GLU (test code = 1264047839) 146 mg/dL 70-110 H Lab Interpretation (test code = Abnormal 03554-4) [facility] WITH [id number] 22:08:54 Test Item Value Reference Range Interpretation Comments WBC (test code = See_Comment LL [Automated 8290-2) message] The sy stem which generated this [...] RDW-SD (test code = 43.0 fL 39.0-49.9 59373-4) RDW-CV (test code = 13.6 % 12.0-15.5 788-0) PLT (test code = See_Comment LL [Automated 777-3) message] The sy stem which generated this result transmitted reference range : 166 - 358 10*3/ ?L. The reference r willem was not used to interpret this result as normal/abnormal . MPV (test code = Not Measure d 46420-6) IPF % (test code = 28.6 % 1.3-7.7 H The IPF v alue may 9887600043) not be reliable when the patien t's platelet count is less than 10 x 10*3/uL due to the higher imprecis ion of the IPF at l ow counts. Platele t count measured by fluorescence method. NRBC/100 WBC (test See_Comment [Automat ed code = 6603455527) message] The system which generated this result transmitted reference range : 0.0 - 10.0 /100 WBCs. The refer ence range was not u sed to interpret th is result as normal/abnormal . NRBC x10^3 (test code See_Comment [Auto mated = 2814740041) message] The s ystem which generated this result transmitted reference range : 10*3/?L. The reference range was not used to interpret this result as normal/abnormal . GRAN MAT (NEUT) % 32.5 % (test code = 770-8) IMM GRAN % (test code 2.50 % = 1910993722) LYMPH % (test code = 32.5 % 736-9) MONO % (test code = 20.0 % 5905-5) EOS % (test code = 12.5 % 713-8) BASO % (test code = 0.0 % 706-2) GRAN MAT x10^3(ANC) 0.13 10*3/uL 1.88-7.09 L (test code = 1481982344) IMM GRAN x10^3 (test <0.03 0.00-0.06 code = 6237236371) LYMPH x10^3 (test code 0.13 10*3/uL 1.32-3.29 L = 731-0) MONO x10^3 (test code 0.08 10*3/uL 0.33-0.92 L = 742-7) EOS x10^3 (test code = 0.05 10*3/uL 0.03-0.39 711-2) BASO x10^3 (test code <0.03 0.01-0.07 = 704-7) Lab Interpretation Abnormal (test code = 47636-9) [facility] GLUCOSE (AUTOMATED)2021-12-08 21:28:54 Test Item Value Reference Range Interpretation Comments POCT GLU (test code = 0509791268) 293 mg/dL 70-110 H Lab Interpretation (test code = Abnormal 01975-3) [facility] GLUCOSE (AUTOMATED)2021-12-08 19:09:43 Test Item Value Reference Range Interpretation Comments POCT GLU (test code = 0280098288) 306 mg/dL 70-110 H Lab Interpretation (test code = Abnormal 73204-8) [facility] ([facility]): 1 Units~Indication: 1) Platelets < 10,000 for bleeding prophylaxis (per hematology); Special Requirements: Leukoreduced (HLA matched)2021-12-08 19:08:27 Test Item Value Reference Range Interpretation Comments Unit Blood Type (test A Pos code = 4410) ISBT Blood Type Code (test code = 555542) Unit Number (test code [id number] = 4411) Blood Expiration Date & Time (test code = 653254) Status Information Issued (test code = 4412) Product Identification Platelets (test code = 4413) Product Code (test [id number] Performed at [facility] code = 4414) Laboratory Services - [facility] [address] [place] [address] [id number] Free: [phone] A No. [id number] [facility]2021-12-08 17:21:14 Test Item Value Reference Range Interpretation Comments POCT GLU (test code = 6881626761) 328 mg/dL 70-110 H Lab Interpretation (test code = Abnormal 77048-2) [facility] WITH [id number] 14:17:38 Test Item Value Reference Range Interpretation [...] RDW-SD (test code = 45.2 fL 39.0-49.9 75366-5) RDW-CV (test code = 13.8 % 12.0-15.5 788-0) PLT (test code = See_Comment LL [Automated 777-3) message] The sy stem which generated this result transmitted reference range : 166 - 358 10*3/ ?L. The reference r willem was not used to interpret this result as normal/abnormal . MPV (test code = Not Measure d 60225-7) IPF % (test code = 22.1 % 1.3-7.7 H The IPF v alue may 4192779442) not be reliable when the patien t's platelet count is less than 10 x 10*3/uL due to the higher imprecis ion of the IPF at l ow counts. Platele t count measured by fluorescence method. NRBC/100 WBC (test See_Comment [Automat ed code = 8053844098) message] The system which generated this result transmitted reference range : 0.0 - 10.0 /100 WBCs. The refer ence range was not u sed to interpret th is result as normal/abnormal . NRBC x10^3 (test code See_Comment [Auto mated = 2171002574) message] The s ystem which generated this result transmitted reference range : 10*3/?L. The reference range was not used to interpret this result as normal/abnormal . SEG % (test code = 2 % 33-76 L 89331-1) BAND % (test code = 2 % 0-1 H 37703-9) META % (test code = 1 % See_Comment H [Automa allison 60519-2) message] The sy stem which generated this result transmitted reference range : <=0. The refere nce range was not u sed to interpret th is result as normal/abnormal . MYELO % (test code = 2 % See_Comment H [Autom ated 21361-9) message] The sy stem which generated this result transmitted reference range : <=0. The refere nce range was not u sed to interpret th is result as normal/abnormal . LYMPH % (test code = 64 % 14-54 H 27418-4) REACT LYMPH % (test 3 % code = 2261199440) MONO % (test code = 14 % 0-4 H 95285-9) EOS % (test code = 12 % 0-3 H 07648-0) ANC (test code = 0.02 10*3/uL 1.88-7.09 L 753-4) Lab Interpretation Abnormal (test code = 11619-4) [facility]21-12-08 14:07:32 Test Item Value Reference Range Interpretation Comments POCT GLU (test code = 6332085612) 323 mg/dL 70-110 H Lab Interpretation (test code = Abnormal 51043-7) [facility] METABOLIC PANEL (NA, K, CL, CO2, GLUCOSE, BUN, CREATININE, CA)2021-12-08 12:17:24 Test Item Value Reference Range Interpretation Comments NA (test code = 138 mmol/L 135-145 4598669496) K (test code = 4.4 mmol/L 3.5-5.0 7434433811) CL (test code = 111 mmol/L 98-108 H 7757637651) CO2 TOTAL (test code = 20 mmol/L 23-31 L 6519895932) AGAP (test code = 2-16 0911379803) BUN (test code = 41 mg/dL 7-23 H 3246756109) GLUCOSE (test code = 265 mg/dL 70-110 H 7038266923) CREATININE (test code = 1.96 mg/dL 0.50-1.04 H 1254609053) CALCIUM (test code = 6.0 mg/dL 8.6-10.6 L 9156002981) eGFR (test code = mL/min/1.73m2 6742758513) FINA (test code = FINA) Association of [...] tests). Lab Interpretation Abnormal (test code = 35176-3) [facility] 12:17:24 Test Item Value Reference Range Interpretation Comments MAGNESIUM (test code = 3578936472) 2.0 mg/dL 1.7-2.4 Lab Interpretation (test code = Normal 43986-8) [facility] GLUCOSE (AUTOMATED)2021-12-08 11:33:36 Test Item Value Reference Range Interpretation Comments POCT GLU (test code = 2623713409) 300 mg/dL 70-110 H Lab Interpretation (test code = Abnormal 06425-8) [facility] (in units)~2021-12-08 08:28:56 Test Item Value Reference Range Interpretation Comments Unit Blood Type (test B Neg code = 4410) ISBT Blood Type Code (test code = 748118) Unit Number (test code [id number] = 4411) Blood Expiration Date & Time (test code = 459148) Status Information Issued (test code = 4412) Product Identification Platelets (test code = 4413) Product Code (test [id number] Performed at [facility] code = 4414) Laboratory Services - [facility] Blood [address] [place] [address] 57478Lklo Free: [phone] A No. [id number] [facility] GLUCOSE (AUTOMATED)2021-12-08 08:24:56 Test Item Value Reference Range Interpretation Comments POCT GLU (test code = 1588612474) 238 mg/dL 70-110 H Lab Interpretation (test code = Abnormal 31083-7) [facility] WITH [id number] 05:54:34 Test Item Value Reference Range Interpretation Comments WBC (test code = See_Comment LL [Automated 3390-2) message] The system which generated this result transmit allison reference range : 4.30 - 11.10 10*3/?L. The reference range was not used to interpret this result as normal/abnormal . RBC (test code = See_Comment L [Automated 689-8) message] The system which generated this result [...] RDW-SD (test code = 43.7 fL 39.0-49.9 61511-8) RDW-CV (test code = 13.6 % 12.0-15.5 788-0) PLT (test code = See_Comment LL [Automated 777-3) message] The system which generated this result transmit allison reference range : 166 - 358 10*3/ ?L. The reference range was not u sed to interpret th is result as normal/abnormal . MPV (test code = Not Measure d 75954-6) IPF % (test code = 17.6 % 1.3-7.7 H The IPF v alue may 5820946509) not be reliable when the patien t's platelet count is less than 10 x 10*3/uL due to the higher imprecis ion of the IPF at l ow counts. Platele t count measured by fluorescence method. NRBC/100 WBC (test See_Comment [Automat ed code = 7266747577) message] The system which generated this result transmit allison reference range : 0.0 - 10.0 /100 WBCs. The reference range was not used to interpret this result as normal/abnormal . NRBC x10^3 (test code <0.01 See_Comment [Auto mated = 7729956349) message] The system which generated this result transmit allison reference range : 10*3/?L. The reference range was not used to interpret this result as normal/abnormal . GRAN MAT (NEUT) % 0.0 % (test code = 770-8) IMM GRAN % (test code 7.20 % = 8963669281) LYMPH % (test code = 46.4 % 736-9) MONO % (test code = 32.1 % 5905-5) EOS % (test code = 14.3 % 713-8) BASO % (test code = 0.0 % 706-2) GRAN MAT x10^3(ANC) <0.03 1.88-7.09 L (test code = 3959615830) IMM GRAN x10^3 (test <0.03 0.00-0.06 code = 7302706959) LYMPH x10^3 (test 0.13 10*3/uL 1.32-3.29 L code = 731-0) MONO x10^3 (test code 0.09 10*3/uL 0.33-0.92 L = 742-7) EOS x10^3 (test code 0.04 10*3/uL 0.03-0.39 = 711-2) BASO x10^3 (test code <0.03 0.01-0.07 = 704-7) FINA (test code = FINA) Qns for manual diff/only 1 lymphyces on the smear/wrm Lab Interpretation Abnormal (test code = 82399-9) [facility] METABOLIC PANEL (NA, K, CL, CO2, GLUCOSE, BUN, CREATININE, CA)2021-12-08 05:16:37 Test Item Value Reference Range Interpretation Comments NA (test code = 138 mmol/L 135-145 1187864917) K (test code = 4.1 mmol/L 3.5-5.0 3054989982) CL (test code = 112 mmol/L 98-108 H 2197870668) CO2 TOTAL (test code = 19 mmol/L 23-31 L 5663834442) AGAP (test code = 2-16 8611085496) BUN (test code = 41 mg/dL 7-23 H 3164157609) GLUCOSE (test code = 209 mg/dL 70-110 H 8578407173) CREATININE (test code = 1.89 mg/dL 0.50-1.04 H 0630975200) CALCIUM (test code = 6.0 mg/dL 8.6-10.6 L 9238506349) eGFR (test code = mL/min/1.73m2 6900027481) FINA (test code = FINA) Association of [...] tests). Lab Interpretation Abnormal (test code = 61122-4) [facility] GLUCOSE (AUTOMATED)2021-12-08 03:56:37 Test Item Value Reference Range Interpretation Comments POCT GLU (test code = 9271510731) 213 mg/dL 70-110 H Lab Interpretation (test code = Abnormal 21516-6) [facility] GLUCOSE (AUTOMATED)2021-12-08 01:26:12 Test Item Value Reference Range Interpretation Comments POCT GLU (test code = 4743737470) 222 mg/dL 70-110 H Lab Interpretation (test code = Abnormal 66900-2) [facility] GLUCOSE (AUTOMATED)2021-12-07 21:55:43 Test Item Value Reference Range Interpretation Comments POCT GLU (test code = 5201805063) 187 mg/dL 70-110 H Lab Interpretation (test code = Abnormal 23626-7) [facility] WITH [id number] 20:52:51 Test Item Value Reference Range Interpretation [...] RDW-SD (test code = 43.2 fL 39.0-49.9 26901-3) RDW-CV (test code = 13.6 % 12.0-15.5 788-0) PLT (test code = See_Comment LL [Automated 777-3) message] The sy stem which generated this result transmitted reference range : 166 - 358 10*3/ ?L. The reference r willem was not used to interpret this result as normal/abnormal . MPV (test code = Not Measure d 54856-2) IPF % (test code = 8.1 % 1.3-7.7 H The IPF v alue may 4867966941) not be reliable when the patien t's platelet count is less than 10 x 10*3/uL due to the higher imprecis ion of the IPF at l ow counts. Platele t count measured by fluorescence method. NRBC/100 WBC (test See_Comment [Automat ed code = 3176251902) message] The system which generated this result transmitted reference range : 0.0 - 10.0 /100 WBCs. The refer ence range was not u sed to interpret th is result as normal/abnormal . NRBC x10^3 (test code <0.01 See_Comment [Auto mated = 6471739733) message] The s ystem which generated this result transmitted reference range : 10*3/?L. The reference range was not used to interpret this result as normal/abnormal . GRAN MAT (NEUT) % 8.0 % (test code = 770-8) IMM GRAN % (test code 0.00 % = 7240505589) LYMPH % (test code = 48.0 % 736-9) MONO % (test code = 12.0 % 5905-5) EOS % (test code = 32.0 % 713-8) BASO % (test code = 0.0 % 706-2) GRAN MAT x10^3(ANC) <0.03 1.88-7.09 L (test code = 5309107324) IMM GRAN x10^3 (test <0.03 0.00-0.06 code = 3329413678) LYMPH x10^3 (test code 0.12 10*3/uL 1.32-3.29 L = 731-0) MONO x10^3 (test code 0.03 10*3/uL 0.33-0.92 L = 742-7) EOS x10^3 (test code = 0.08 10*3/uL 0.03-0.39 711-2) BASO x10^3 (test code <0.03 0.01-0.07 = 704-7) Lab Interpretation Abnormal (test code = 12091-6) [facility] Draw vanc level 23 hours post [id number] 19:36:49 Test Item Value Reference Range Interpretation Comments VANCO TROUGH (test code 11.2 ug/mL 10.0-20.0 = 2510773200) FINA (test code = FINA) Toxic Range: ?>20 ug/mL 15-20 ug/mL is recommended for severe infection or when Vancomycin WILSON is greater than or equal to 2. Lab Interpretation (test Normal code = 33700-1) [facility]2021-12-07 19:19:35 Test Item Value Reference Range Interpretation Comments POCT GLU (test code = 1780205062) 238 mg/dL 70-110 H Lab Interpretation (test code = Abnormal 08207-9) [facility] WITH [id number] 16:56:47 Test Item Value Reference Range Interpretation [...] RDW-SD (test code = 44.3 fL 39.0-49.9 61677-1) RDW-CV (test code = 13.5 % 12.0-15.5 788-0) PLT (test code = See_Comment LL [Automated 777-3) message] The sy stem which generated this result transmitted reference range : 166 - 358 10*3/ ?L. The reference r willem was not used to interpret this result as normal/abnormal . MPV (test code = 12.1 fL 9.5-12.9 08333-8) IPF % (test code = 2.3 % 1.3-7.7 Platelet count 3514886874) measured by fluorescence method. NRBC/100 WBC (test See_Comment [Automat ed code = 6667271724) message] The system which generated this result transmitted reference range : 0.0 - 10.0 /100 WBCs. The refer ence range was not u sed to interpret th is result as normal/abnormal . NRBC x10^3 (test code <0.01 See_Comment [Auto mated = 4689084584) message] The s ystem which generated this result transmitted reference range : 10*3/?L. The reference range was not used to interpret this result as normal/abnormal . SEG % (test code = 1 % 33-76 L 57262-9) LYMPH % (test code = 49 % 14-54 21789-1) REACT LYMPH % (test 2 % code = 3092893135) MONO % (test code = 4 % 0-4 62657-8) EOS % (test code = 44 % 0-3 H 69054-3) ANC (test code = 0.00 10*3/uL 1.88-7.09 L 753-4) Lab Interpretation Abnormal (test code = 00458-0) [facility]21-[facility]-07 15:58:35 Test Item Value Reference Range Interpretation Comments POCT GLU (test code = 3175092925) 257 mg/dL 70-110 H Lab Interpretation (test code = Abnormal 98924-2) [facility] METABOLIC PANEL (NA, K, CL, CO2, GLUCOSE, BUN, CREATININE, CA)2021-12-07 14:49:33 Test Item Value Reference Range Interpretation Comments NA (test code = 135 mmol/L 135-145 8579218442) K (test code = 3.6 mmol/L 3.5-5.0 6392614462) CL (test code = 111 mmol/L 98-108 H 7942690807) CO2 TOTAL (test code = 16 mmol/L 23-31 L 0697661807) AGAP (test code = 2-16 6036117126) BUN (test code = 49 mg/dL 7-23 H 5570918454) GLUCOSE (test code = 242 mg/dL 70-110 H 3896427551) CREATININE (test code = 1.82 mg/dL 0.50-1.04 H 2011949265) CALCIUM (test code = 6.0 mg/dL 8.6-10.6 L 6220537849) eGFR (test code = mL/min/1.73m2 6471364894) FINA (test code = FINA) Association of [...] tests). Lab Interpretation Abnormal (test code = 83054-7) [facility] 14:49:33 Test Item Value Reference Range Interpretation Comments MAGNESIUM (test code = 4503914117) 2.0 mg/dL 1.7-2.4 Lab Interpretation (test code = Normal 73233-0) [facility] 13:35:43 Test Item Value Reference Range Interpretation Comments Fibrinogen (test code = 5472801283) 646 mg/dL 167-453 H Lab Interpretation (test code = Abnormal 13279-7) [facility]2021-12-07 12:44:58 Test Item Value Reference Range Interpretation Comments POCT GLU (test code = 1129825062) 231 mg/dL 70-110 H Lab Interpretation (test code = Abnormal 41819-4) [facility] Platelets (in units): 1 Units~Indication: 1) Platelets < 10,000 for bleeding dxaslffktrj4943-68-29 11:30:59 Test Item Value Reference Range Interpretation Comments Unit Blood Type (test O Pos code = 4410) ISBT Blood Type Code (test code = 728297) Unit Number (test code [id number] = 4411) Blood Expiration Date & Time (test code = 185827) Status Information Issued (test code = 4412) Product Identification Platelets (test code = 4413) Product Code (test [id number] Performed at [facility] code = 4414) Laboratory Services - [facility] Blood [address] [place] [address] 929[address]Ougo Free: [phone] A No. [id number] [facility] Packed RBC (in units), 1 Units 2021-12-07 07:24:01 Test Item Value Reference Range Interpretation Comments Cross Match Result Compatible (test code = 4409) ISBT Blood Type Code (test code = 218073) Unit Blood Type (test O Pos code = 4410) Unit Number (test [id number] code = 4411) Blood Expiration Date & Time (test code = 737687) Status Information Issued (test code = 4412) Product Red Blood Cells Identification (test code = 4413) Product Code (test W4920E98 Performed at [facility] code = 4414) Laboratory Services - [facility] Blood [address] [place] [address] 489[address]Moso Free: [phone] A No. [id number] [facility] WITHOUT [id number] 04:58:12 Test Item Value Reference Range Interpretation Comments WBC (test code = See_Comment LL [Automated message] 6690-2) The system Lab21 generated this result transmitted ref erence range: 4.30 - 1 1.10 10*3/?L. The reference range was not used to int erpret this result as normal/abnormal . RBC (test code = 789-8) See_Comment L [Au tomated message] The system [facility]21 generated this result transmitted ref erence range: [...] See_Comment LL [Au tomated message] The system [facility]21 generated this result transmitted ref erence range: 166 - 35 8 10*3/?L. The reference range was not used to int erpret this result as normal/abnormal . MPV (test code = 11.1 fL 9.5-12.9 79258-1) RDW-CV (test code = 13.6 % 12.0-15.5 788-0) RDW-SD (test code = 43.3 fL 39.0-49.9 74323-3) NRBC x10^3 (test code = <0.01 See_Comment [Au tomated message] 3697665141) The system [facility]21 generated this result transmitted ref erence range: 10*3/?L. The reference range was not used to int erpret this result as normal/abnormal . NRBC/100 WBC (test code See_Comment [Au tomated message] = 2164983050) The system Jack Erwin generated this result transmitted ref erence range: 0.0 - 10 .0 /100 WBCs. The reference range was not used to int erpret this result as normal/abnormal . IPF % (test code = 4.9 % 1.3-7.7 The IPF v alue may not 1924794303) be reliable whe n the patient's plate let count is less t ley 10 x 10*3/uL due t o the higher imprecis ion of the IPF at low counts. Platele t count measured by fluorescence me thod. Lab Interpretation Abnormal (test code = 64538-4) [facility] [id number] 04:52:10 Test Item Value Reference Range Interpretation Comments IONIZED CA (test code = 3.30 mg/dL 4.50-5.30 L 4983587744) PH SERUM (test code = 8336957355) 7.35-7.45 Lab Interpretation (test code = Abnormal 70271-6) [facility] METABOLIC PANEL (NA, K, CL, CO2, GLUCOSE, BUN, CREATININE, CA)2021-12-07 04:31:21 Test Item Value Reference Range Interpretation Comments NA (test code = 136 mmol/L 135-145 7885782094) K (test code = 3.1 mmol/L 3.5-5.0 L 2204552007) CL (test code = 110 mmol/L 98-108 H 1594311642) CO2 TOTAL (test code = 19 mmol/L 23-31 L 9957227024) AGAP (test code = 2-16 7858119712) BUN (test code = 57 mg/dL 7-23 H 0217536167) GLUCOSE (test code = 234 mg/dL 70-110 H 0879106656) CREATININE (test code = 1.78 mg/dL 0.50-1.04 H 5223436147) CALCIUM (test code = 5.4 mg/dL 8.6-10.6 LL 7208560819) eGFR (test code = mL/min/1.73m2 1912921598) FINA (test code = FINA) Association of [...] tests). Lab Interpretation Abnormal (test code = 24030-7) [facility] GLUCOSE (AUTOMATED)2021-12-07 01:21:49 Test Item Value Reference Range Interpretation Comments POCT GLU (test code = 1030623654) 277 mg/dL 70-110 H Lab Interpretation (test code = Abnormal 97150-9) [facility] [id number] 22:51:07 Test Item Value Reference Range Interpretation Comments IONIZED CA (test code = 3.20 mg/dL 4.50-5.30 L 2292297522) PH SERUM (test code = 6397163120) 7.35-7.45 Lab Interpretation (test code = Abnormal 05960-4) [facility] GLUCOSE (AUTOMATED)2021-12-06 21:34:52 Test Item Value Reference Range Interpretation Comments POCT GLU (test code = 2725830177) 270 mg/dL 70-110 H Lab Interpretation (test code = Abnormal 75916-9) [facility] WITHOUT [id number] 20:54:41 Test Item Value Reference Range Interpretation Comments WBC (test code = 6690-2) See_Comment LL [A utomated message] The system Lab21 generated this result transmit allison reference range : 4.30 - 11.10 10*3/?L. The reference range was not used to interpret this result as normal/abnormal . RBC (test code = 789-8) See_Comment L [Au tomated message] The system Lab21 generated this result transmit allison reference range [...] See_Comment LL [Au tomated message] The system Lab21 generated this result transmit allison reference range : 166 - 358 10*3/?L. The reference range was not used to interpret this result as normal/abnormal . MPV (test code = 11.9 fL 9.5-12.9 59767-2) RDW-CV (test code = 13.4 % 12.0-15.5 788-0) RDW-SD (test code = 42.0 fL 39.0-49.9 36458-3) NRBC x10^3 (test code = <0.01 See_Comment [Au tomated message] 9093478237) The system Lab21 generated this result transmit allison reference range : 10*3/?L. The reference range was not used to interpret this result as normal/abnormal . NRBC/100 WBC (test code See_Comment [Au tomated message] = 6067105248) The system [employer] generated this result transmit allison reference range : 0.0 - 10.0 /100 WBC s. The reference r willem was not used to interpret this result as normal/abnormal . IPF % (test code = 8245522859) Lab Interpretation (test Abnormal code = 80962-1) [facility] T[facility] - Draw level 24 hours post [id number] 20:50:18 Test Item Value Reference Range Interpretation Comments VANCO TROUGH (test code 8.3 ug/mL 10.0-20.0 L = 6551479595) FINA (test code = FINA) Toxic Range: ?>20 ug/mL 15-20 ug/mL is recommended for severe infection or when Vancomycin WILSON is greater than or equal to 2. Lab Interpretation (test Abnormal code = 58487-8) [facility] WITH [id number] 17:57:45 Test Item Value Reference Range Interpretation [...] RDW-SD (test code = 43.4 fL 39.0-49.9 36586-6) RDW-CV (test code = 13.2 % 12.0-15.5 788-0) PLT (test code = See_Comment LL [Automated 777-3) message] The sy stem which generated this result transmitted reference range : 166 - 358 10*3/ ?L. The reference r willem was not used to interpret this result as normal/abnormal . MPV (test code = 12.5 fL 9.5-12.9 10122-4) IPF % (test code = 1.2 % 1.3-7.7 L Platelet count 4834052100) measured by fluorescence method. NRBC/100 WBC (test See_Comment [Automat ed code = 8019521644) message] The system which generated this result transmitted reference range : 0.0 - 10.0 /100 WBCs. The refer ence range was not u sed to interpret th is result as normal/abnormal . NRBC x10^3 (test code <0.01 See_Comment [Auto mated = 3937472160) message] The s ystem which generated this result transmitted reference range : 10*3/?L. The reference range was not used to interpret this result as normal/abnormal . LYMPH % (test code = 86 % 14-54 H 91169-7) MONO % (test code = 3 % 0-4 09685-5) EOS % (test code = 11 % 0-3 H 08638-7) ANC (test code = 0.00 10*3/uL 1.88-7.09 L 753-4) Lab Interpretation Abnormal (test code = 48539-9) [facility]2021-12-06 16:07:01 Test Item Value Reference Range Interpretation Comments POCT GLU (test code = 9614988741) 281 mg/dL 70-110 H Lab Interpretation (test code = Abnormal 78156-4) [facility] WITH [id number] 14:39:43 Test Item Value Reference Range Interpretation [...] RDW-SD (test code = 42.9 fL 39.0-49.9 75306-9) RDW-CV (test code = 13.2 % 12.0-15.5 788-0) PLT (test code = See_Comment LL [Automated 777-3) message] The sy stem which generated this result transmitted reference range : 166 - 358 10*3/ ?L. The reference r willem was not used to interpret this result as normal/abnormal . MPV (test code = 12.4 fL 9.5-12.9 32414-1) IPF % (test code = 0.9 % 1.3-7.7 L The IPF v alue may 8671948483) not be reliable when the patien t's platelet count is less than 10 x 10*3/uL due to the higher imprecis ion of the IPF at l ow counts. Platele t count measured by fluorescence method. NRBC/100 WBC (test See_Comment [Automat ed code = 6889428304) message] The system which generated this result transmitted reference range : 0.0 - 10.0 /100 WBCs. The refer ence range was not u sed to interpret th is result as normal/abnormal . NRBC x10^3 (test code See_Comment [Auto mated = 1417769706) message] The s ystem which generated this result transmitted reference range : 10*3/?L. The reference range was not used to interpret this result as normal/abnormal . LYMPH % (test code = 86 % 14-54 H 33056-1) MONO % (test code = 6 % 0-4 H 23562-4) EOS % (test code = 8 % 0-3 H 76544-6) ANC (test code = 0.00 10*3/uL 1.88-7.09 L 753-4) Lab Interpretation Abnormal (test code = 31664-4) [facility] METABOLIC PANEL (NA, K, CL, CO2, GLUCOSE, BUN, CREATININE, CA)2021-12-06 13:30:44 Test Item Value Reference Range Interpretation Comments NA (test code = 133 mmol/L 135-145 L 4501187669) K (test code = 3.3 mmol/L 3.5-5.0 L 3876351875) CL (test code = 109 mmol/L 98-108 H 2692919317) CO2 TOTAL (test code = 17 mmol/L 23-31 L 8438562070) AGAP (test code = 2-16 8687350612) BUN (test code = 62 mg/dL 7-23 H 7464382585) GLUCOSE (test code = 302 mg/dL 70-110 H 1740203346) CREATININE (test code = 1.77 mg/dL 0.50-1.04 H 1723160829) CALCIUM (test code = 5.0 mg/dL 8.6-10.6 2656079470) eGFR (test code = mL/min/1.73m2 4219108254) FINA (test code = FINA) Association of [...] tests). Lab Interpretation Abnormal (test code = 86267-1) [facility]2021-12-06 12:43:19 Test Item Value Reference Range Interpretation Comments POCT GLU (test code = 3739839448) 342 mg/dL 70-110 H Lab Interpretation (test code = Abnormal 17441-6) [facility] - Peripheral Vein # 12:01:19 Test Item Value Reference Range Interpretation Comments Blood Culture-Aerobic No organisms No growth Previo us (test code = 11469-0) isolated prelim inary verified result was Culture [...] Culture-Anaerobic isolated preliminar y (test code = 14606-5) verifi ed result was Culture In Progress on 12/01/2021 at 10 CDTPrevious preliminary verified result was No growth a t 24 hours on 12/02/2021 at 07 CDTPrevious preliminary verified result was No growth a t 48 hours on 12/03/2021 at 07 CDTPrevious preliminary verified result was No growth a t 72 hours on 12/04/2021 at 12 10 CDT Lab Interpretation Normal (test code = 66269-6) [facility] Culture - Peripheral [id number] 12:01:19 Test Item Value Reference Range Interpretation Comments Blood Culture-Aerobic No organisms No growth Previo us (test code = 49330-7) isolated prelim inary verified result was Culture [...] Culture-Anaerobic isolated preliminar y (test code = 56231-1) verifi ed result was Culture In Progress [...] CDT Lab Interpretation Normal (test code = 74622-6) [facility] Packed RBC (in units), 1 Units 2021-12-06 10:14:34 Test Item Value Reference Range Interpretation Comments Cross Match Result Compatible (test code = 4409) ISBT Blood Type Code (test code = 763003) Unit Blood Type (test O Pos code = 4410) Unit Number (test [id number] code = 4411) Blood Expiration Date & Time (test code = 931321) Status Information Issued (test code = 4412) Product Red Blood Cells Identification (test code = 4413) Product Code (test [id number] Performed at [facility] code = 4414) Laboratory Services - [facility] Blood [address] [address]Bwtw Free: [phone] A No. [id number] [facility] WITH [id number] 07:37:57 Test Item Value Reference Range Interpretation Comments WBC (test code = See_Comment LL [Automated message] 6690-2) The system Lab21 generated this result transmitted ref erence range: 4.30 - 1 1.10 10*3/?L. The reference range was not used to int erpret this result as normal/abnormal . RBC (test code = 789-8) See_Comment L [Au tomated message] The system Lab21 generated this result transmitted ref erence range: [...] RDW-SD (test code = 43.8 fL 39.0-49.9 45762-2) RDW-CV (test code = 13.6 % 12.0-15.5 788-0) PLT (test code = 777-3) See_Comment LL [Au tomated message] The system Lab21 generated this result transmitted ref erence range: 166 - 35 8 10*3/?L. The reference range was not used to int erpret this result as normal/abnormal . MPV (test code = Not Measure d 76522-3) IPF % (test code = 0.8 % 1.3-7.7 L Platelet count 3195319555) measured by fluorescence me thod. NRBC/100 WBC (test code See_Comment [Au tomated message] = 4685483938) The system Jack Erwin ch generated this result transmitted ref erence range: 0.0 - 10 .0 /100 WBCs. The reference range was not used to int erpret this result as normal/abnormal . NRBC x10^3 (test code = <0.01 See_Comment [Au tomated message] 5178366157) The system [employer] h generated this result transmitted ref erence range: 10*3/?L. The reference range was not used to int erpret this result as normal/abnormal . SEG % (test code = 1 % 33-76 L 06384-1) LYMPH % (test code = 82 % 14-54 H 69795-8) MONO % (test code = 2 % 0-4 61374-3) EOS % (test code = 15 % 0-3 H 86074-4) ANC (test code = 753-4) Unab le to calculate due to low whit e count Lab Interpretation Abnormal (test code = 71931-4) [facility]OLIC PAN[facility] (15025)2021-12-06 06:20:44 Test Item Value Reference Range Interpretation Comments NA (test code = 134 mmol/L 135-145 L 7180928038) K (test code = 3.8 mmol/L 3.5-5.0 Slight 5453436067) hemolysis CL (test code = 109 mmol/L 98-108 H 4532499167) CO2 TOTAL (test code 20 mmol/L 23-31 L = 7343963605) AGAP (test code = 2-16 4141564100) BUN (test code = 54 mg/dL 7-23 H Slight 9010788700) hemolysis GLUCOSE (test code = 186 mg/dL 70-110 H 7451034135) CREATININE (test code 1.55 mg/dL 0.50-1.04 H = 6942726503) TOTAL BILI (test code 0.9 mg/dL 0.1-1.1 = 2329957962) CALCIUM (test code = 4.6 mg/dL 8.6-10.6 LL 4819571582) T PROTEIN (test code 4.9 g/dL 6.3-8.2 L = 8352236111) ALBUMIN (test code = 2.1 g/dL 3.5-5.0 L 1741819266) ALK PHOS (test code = 35 U/L 34-122 Slight 8237002687) hemolysis ALTv (test code = 11 U/L 5-35 1742-6) AST(SGOT) (test code 32 U/L 13-40 Slight = 3767327799) hemolysis eGFR (test code = mL/min/1.73m2 4831879817) FINA (test code = FINA) Association of [...] tests). Lab Interpretation Abnormal (test code = 54828-5) [facility] Test Item Value Reference Range Interpretation Comments MAGNESIUM (test code = 0519262618) 1.9 mg/dL 1.7-2.4 Lab Interpretation (test code = Normal 11090-4) [facility]PROCALCITONIN2022-[facility]-27 04:12:45 Test Item Value Reference Range Interpretation Comments Procalcitonin (test 1.10 ng/mL <0.07 H code = 6951009155) FINA (test code = FINA) INTERPRETATION OF [...] lung abscess/empyema. For further information please refer to:[email or web address] Lab Interpretation Abnormal (test code = 13384-7) [facility] HospitalPrepar Platelets (in units): 1 Units~Indication: 1) Platelets < 10,000 for bleeding scaqjrepjfs8080-07-22 02:21:17 Test Item Value Reference Range Interpretation Comments Unit Blood Type (test O Pos code = 4410) ISBT Blood Type Code (test code = 829809) Unit Number (test code [id number] = 4411) Blood Expiration Date & Time (test code = 456999) Status Information Issued (test code = 4412) Product Identification Platelets (test code = 4413) Product Code (test E0709TT7 Performed at [facility] code = 4414) Laboratory Services - [facility] Blood [address] [place] [address]Trdd Free: [phone] A No. [id number] [facility] GLUCOSE (AUTOMATED)2021-12-06 01:51:04 Test Item Value Reference Range Interpretation Comments POCT GLU (test code = 9811025885) 176 mg/dL 70-110 H Lab Interpretation (test code = Abnormal 02059-9) [facility] GLUCOSE (AUTOMATED)2021-12-05 22:02:21 Test Item Value Reference Range Interpretation Comments POCT GLU (test code = 6273038960) 130 mg/dL 70-110 H Lab Interpretation (test code = Abnormal 19042-1) [facility] GLUCOSE (AUTOMATED)2021-12-05 17:41:32 Test Item Value Reference Range Interpretation Comments POCT GLU (test code = 2576094760) 178 mg/dL 70-110 H Lab Interpretation (test code = Abnormal 75993-7) [facility] HospitalType [facility] Screen - ONCE [id number] 16:45:28 Test Item Value Reference Range Interpretation Comments ABO & RH (test code O Positive Performe d at [facility] = 20) Laboratory Serv [facility] [address] [place] [address]Bsmr Free: [phone] A No. [id number] IAT (test code = Negative Performed a t [facility] 1185) Laboratory Serv [facility] [address] [place] [address]Spil Free: [phone] A No. [id number] [facility] GLUCOSE (AUTOMATED)2021-12-05 12:44:52 Test Item Value Reference Range Interpretation Comments POCT GLU (test code = 6526406040) 156 mg/dL 70-110 H Lab Interpretation (test code = Abnormal 35848-4) [facility] WITH [id number] 11:46:34 Test Item Value Reference Range Interpretation [...] RDW-SD (test code = 42.5 fL 39.0-49.9 07924-1) RDW-CV (test code = 13.1 % 12.0-15.5 788-0) PLT (test code = See_Comment LL [Automated 777-3) message] The sy stem which generated this result transmitted reference range : 166 - 358 10*3/ ?L. The reference r willem was not used to interpret this result as normal/abnormal . MPV (test code = 9.9 fL 9.5-12.9 53716-5) IPF % (test code = 0.8 % 1.3-7.7 L The IPF v alue may 4462105277) not be reliable when the patien t's platelet count is less than 10 x 10*3/uL due to the higher imprecis ion of the IPF at l ow counts. Platele t count measured by fluorescence method. NRBC/100 WBC (test See_Comment [Automat ed code = 4499789426) message] The system which generated this result transmitted reference range : 0.0 - 10.0 /100 WBCs. The refer ence range was not u sed to interpret th is result as normal/abnormal . NRBC x10^3 (test code <0.01 See_Comment [Auto mated = 6431719329) message] The s ystem which generated this result transmitted reference range : 10*3/?L. The reference range was not used to interpret this result as normal/abnormal . GRAN MAT (NEUT) % 2.8 % (test code = 770-8) IMM GRAN % (test code 0.00 % = 7498658031) LYMPH % (test code = 88.9 % 736-9) MONO % (test code = 0.0 % 5905-5) EOS % (test code = 8.3 % 713-8) BASO % (test code = 0.0 % 706-2) GRAN MAT x10^3(ANC) <0.03 1.88-7.09 L (test code = 0621950060) IMM GRAN x10^3 (test <0.03 0.00-0.06 code = 5428168520) LYMPH x10^3 (test code 0.32 10*3/uL 1.32-3.29 L = 731-0) MONO x10^3 (test code <0.03 0.33-0.92 L = 742-7) EOS x10^3 (test code = 0.03 10*3/uL 0.03-0.39 711-2) BASO x10^3 (test code <0.03 0.01-0.07 = 704-7) Lab Interpretation Abnormal (test code = 81671-3) [facility] GLUCOSE (AUTOMATED)2021-12-05 10:17:45 Test Item Value Reference Range Interpretation Comments POCT GLU (test code = 6268082176) 158 mg/dL 70-110 H Lab Interpretation (test code = Abnormal 49774-0) [facility] GLUCOSE (AUTOMATED)2021-12-05 05:48:51 Test Item Value Reference Range Interpretation Comments POCT GLU (test code = 2536361966) 154 mg/dL 70-110 H Lab Interpretation (test code = Abnormal 33836-8) [facility] GLUCOSE (AUTOMATED)2021-12-05 01:17:12 Test Item Value Reference Range Interpretation Comments POCT GLU (test code = 2943314742) 171 mg/dL 70-110 H Lab Interpretation (test code = Abnormal 20746-7) [facility] GLUCOSE (AUTOMATED)2021-12-04 21:33:40 Test Item Value Reference Range Interpretation Comments POCT GLU (test code = 5585066917) 175 mg/dL 70-110 H Lab Interpretation (test code = Abnormal 05816-4) [facility]XATE20[facility] 16:55:04 Test Item Value Reference Range Interpretation Comments METHOTREX (test code <0.050 umol/L = 4254597615) FINA (test code = THERAPEUTIC RANGE = FINA) VARIABLE (DEPENDS ON TREATMENT PROTOCOL)TOXIC RANGE = GREATER THAN 10.00 UMOL/L @ 24 HRS ?GREATER THAN ?1.00 UMOL/L @ 48 HRS ?GREATER THAN ?0.10 UMOL/L @ 72 HRS Test developed and characteristics determined by [facility] Laboratory Services. [facility] GLUCOSE (AUTOMATED)2021-12-04 16:28:19 Test Item Value Reference Range Interpretation Comments POCT GLU (test code = 0544017665) 190 mg/dL 70-110 H Lab Interpretation (test code = Abnormal 60884-0) [facility] GLUCOSE (AUTOMATED)2021-12-04 12:43:03 Test Item Value Reference Range Interpretation Comments POCT GLU (test code = 8911864450) 202 mg/dL 70-110 H Lab Interpretation (test code = Abnormal 57021-8) [facility] WITH [id number] 11:43:45 Test Item Value Reference Range Interpretation [...] RDW-SD (test code = 45.6 fL 39.0-49.9 35432-8) RDW-CV (test code = 13.6 % 12.0-15.5 788-0) PLT (test code = See_Comment LL [Automated 777-3) message] The sy stem which generated this result transmitted reference range : 166 - 358 10*3/ ?L. The reference r willem was not used to interpret this result as normal/abnormal . MPV (test code = 10.8 fL 9.5-12.9 86724-4) IPF % (test code = 2.1 % 1.3-7.7 Platelet count 3365511298) measured by fluorescence method. NRBC/100 WBC (test See_Comment [Automat ed code = 9959473676) message] The system which generated this result transmitted reference range : 0.0 - 10.0 /100 WBCs. The refer ence range was not u sed to interpret th is result as normal/abnormal . NRBC x10^3 (test code <0.01 See_Comment [Auto mated = [id number]) message] The s ystem which generated this result transmitted reference range : 10*3/?L. The reference range was not used to interpret this result as normal/abnormal . SEG % (test code = 4 % 33-76 L 65845-2) LYMPH % (test code = 83 % 14-54 H 07788-6) MONO % (test code = 6 % 0-4 H 85713-6) EOS % (test code = 7 % 0-3 H 52993-0) ANC (test code = 0.01 10*3/uL 1.88-7.09 L 753-4) Lab Interpretation Abnormal (test code = 53404-4) [facility] METABOLIC PANEL (NA, K, CL, CO2, GLUCOSE, BUN, CREATININE, CA)2021-12-04 11:33:23 Test Item Value Reference Range Interpretation Comments NA (test code = 140 mmol/L 135-145 7245089757) K (test code = 3.3 mmol/L 3.5-5.0 L 4549197257) CL (test code = 112 mmol/L 98-108 H 3648732995) CO2 TOTAL (test code = 21 mmol/L 23-31 L 1209094558) AGAP (test code = 2-16 0135020438) BUN (test code = 45 mg/dL 7-23 H 7649830539) GLUCOSE (test code = 176 mg/dL 70-110 H 0722554060) CREATININE (test code = 1.48 mg/dL 0.50-1.04 H 3381315528) CALCIUM (test code = 5.1 mg/dL 8.6-10.6 LL 3899902591) eGFR (test code = mL/min/1.73m2 0362928158) FINA (test code = FINA) Association of [...] tests). Lab Interpretation Abnormal (test code = 65518-5) [facility] GLUCOSE (AUTOMATED)2021-12-04 09:39:15 Test Item Value Reference Range Interpretation Comments POCT GLU (test code = 8164002136) 175 mg/dL 70-110 H Lab Interpretation (test code = Abnormal 54803-0) [facility] GLUCOSE (AUTOMATED)2021-12-04 09:14:38 Test Item Value Reference Range Interpretation Comments POCT GLU (test code = 5642472261) 177 mg/dL 70-110 H Lab Interpretation (test code = Abnormal 77421-4) [facility] GLUCOSE (AUTOMATED)2021-12-04 06:26:04 Test Item Value Reference Range Interpretation Comments POCT GLU (test code = 7013838724) 214 mg/dL 70-110 H Lab Interpretation (test code = Abnormal 99185-5) [facility] GLUCOSE (AUTOMATED)2021-12-04 03:09:21 Test Item Value Reference Range Interpretation Comments POCT GLU (test code = 5877200868) 210 mg/dL 70-110 H Lab Interpretation (test code = Abnormal 20021-0) [facility] GLUCOSE (AUTOMATED)2021-12-03 22:02:35 Test Item Value Reference Range Interpretation Comments POCT GLU (test code = 3071163358) 222 mg/dL 70-110 H Lab Interpretation (test code = Abnormal 43468-7) [facility] GLUCOSE (AUTOMATED)2021-12-03 17:13:52 Test Item Value Reference Range Interpretation Comments POCT GLU (test code = 7093297416) 185 mg/dL 70-110 H Lab Interpretation (test code = Abnormal 20060-0) [facility] GLUCOSE (AUTOMATED)2021-12-03 15:33:09 Test Item Value Reference Range Interpretation Comments POCT GLU (test code = 0733183573) 187 mg/dL 70-110 H Lab Interpretation (test code = Abnormal 34761-8) [facility] (in units), 1 Units 2021-12-03 14:24:52 Test Item Value Reference Range Interpretation Comments Cross Match Result Compatible (test code = 4409) ISBT Blood Type Code (test code = 729905) Unit Blood Type (test O Pos code = 4410) Unit Number (test [id number] code = 4411) Blood Expiration Date & Time (test code = 845151) Status Information Issued (test code = 4412) Product Red Blood Cells Identification (test code = 4413) Product Code (test [id number] Performed at [facility] code = 4414) Laboratory Services - [facility] [address] [place] [address] 47612Rdyi Free: [phone] A No. [id number] [facility] GLUCOSE (AUTOMATED)2021-12-03 13:14:18 Test Item Value Reference Range Interpretation Comments POCT GLU (test code = 8162421288) 196 mg/dL 70-110 H Lab Interpretation (test code = Abnormal 96043-1) [facility] WITH [id number] 11:40:17 Test Item Value Reference Range Interpretation [...] RDW-SD (test code = 44.3 fL 39.0-49.9 65855-0) RDW-CV (test code = 13.2 % 12.0-15.5 788-0) PLT (test code = See_Comment LL [Automated 777-3) message] The sy stem which generated this result transmitted reference range : 166 - 358 10*3/ ?L. The reference r willem was not used to interpret this result as normal/abnormal . MPV (test code = 11.0 fL 9.5-12.9 61549-3) IPF % (test code = 2.5 % 1.3-7.7 Platelet count 0413201684) measured by fluorescence method. NRBC/100 WBC (test See_Comment [Automat ed code = 3408135370) message] The system which generated this result transmitted reference range : 0.0 - 10.0 /100 WBCs. The refer ence range was not u sed to interpret th is result as normal/abnormal . NRBC x10^3 (test code <0.01 See_Comment [Auto mated = 4102702211) message] The s [employer] which generated this result transmitted reference range : 10*3/?L. The reference range was not used to interpret this result as normal/abnormal . SEG % (test code = 5 % 33-76 L 78563-1) LYMPH % (test code = 78 % 14-54 H 59613-1) EOS % (test code = 17 % 0-3 H 06482-4) ANC (test code = 0.03 10*3/uL 1.88-7.09 L 753-4) DOHLE BODIES (test Present A code = 7792-5) Lab Interpretation Abnormal (test code = 12552-6) [facility] METABOLIC PANEL (NA, K, CL, CO2, GLUCOSE, BUN, CREATININE, CA)2021-12-03 11:18:49 Test Item Value Reference Range Interpretation Comments NA (test code = 144 mmol/L 135-145 0153162834) K (test code = 3.5 mmol/L 3.5-5.0 5611368544) CL (test code = 116 mmol/L 98-108 H 5382467146) CO2 TOTAL (test code = 22 mmol/L 23-31 L 6240244240) AGAP (test code = 2-16 4615913935) BUN (test code = 54 mg/dL 7-23 H 1031476399) GLUCOSE (test code = 158 mg/dL 70-110 H 4827881167) CREATININE (test code = 1.60 mg/dL 0.50-1.04 H 8960728003) CALCIUM (test code = 6.1 mg/dL 8.6-10.6 L 1440173873) eGFR (test code = mL/min/1.73m2 1964682158) FINA (test code = FINA) Association of [...] tests). Lab Interpretation Abnormal (test code = 91837-3) [facility] Test Item Value Reference Range Interpretation Comments MAGNESIUM (test code = 3293447964) 2.3 mg/dL 1.7-2.4 Lab Interpretation (test code = Normal 02509-8) [facility] GLUCOSE (AUTOMATED)2021-12-03 10:31:14 Test Item Value Reference Range Interpretation Comments POCT GLU (test code = 8359031308) 167 mg/dL 70-110 H Lab Interpretation (test code = Abnormal 12064-3) [facility] GLUCOSE (AUTOMATED)2021-12-03 06:54:17 Test Item Value Reference Range Interpretation Comments POCT GLU (test code = 8963601281) 177 mg/dL 70-110 H Lab Interpretation (test code = Abnormal 07255-1) [facility] GLUCOSE (AUTOMATED)2021-12-03 04:53:06 Test Item Value Reference Range Interpretation Comments POCT GLU (test code = 6330653673) 182 mg/dL 70-110 H Lab Interpretation (test code = Abnormal 94340-1) [facility] GLUCOSE (AUTOMATED)2021-12-03 04:05:43 Test Item Value Reference Range Interpretation Comments POCT GLU (test code = 7113884985) 191 mg/dL 70-110 H Lab Interpretation (test code = Abnormal 70243-0) [facility] GLUCOSE (AUTOMATED)2021-12-03 03:01:07 Test Item Value Reference Range Interpretation Comments POCT GLU (test code = 8462992971) 209 mg/dL 70-110 H Lab Interpretation (test code = Abnormal 12693-3) [facility] GLUCOSE (AUTOMATED)2021-12-03 02:14:25 Test Item Value Reference Range Interpretation Comments POCT GLU (test code = 1686976272) 226 mg/dL 70-110 H Lab Interpretation (test code = Abnormal 90854-0) [facility] Metabolc Panel (Na, K, Cl, CO2, Glucose, BUN, Creatinine, Ca)2021-12-02 23:28:32 Test Item Value Reference Range Interpretation Comments NA (test code = 144 mmol/L 135-145 9082227403) K (test code = 3.8 mmol/L 3.5-5.0 9372623383) CL (test code = 114 mmol/L 98-108 H 4901052275) CO2 TOTAL (test code = 23 mmol/L 23-31 1033544312) AGAP (test code = 2-16 7324204818) BUN (test code = 66 mg/dL 7-23 H 0162211894) GLUCOSE (test code = 232 mg/dL 70-110 H 8280023449) CREATININE (test code = 1.77 mg/dL 0.50-1.04 H 1208855921) CALCIUM (test code = 6.1 mg/dL 8.6-10.6 L 3345333846) eGFR (test code = mL/min/1.73m2 4990974324) FINA (test code = FINA) Association of [...] tests). Lab Interpretation Abnormal (test code = 55130-9) [facility] GLUCOSE (AUTOMATED)2021-12-02 23:02:42 Test Item Value Reference Range Interpretation Comments POCT GLU (test code = 0374157718) 244 mg/dL 70-110 H Lab Interpretation (test code = Abnormal 28929-1) [facility] 22:40:23 Test Item Value Reference Range Interpretation Comments METHOTREX (test code 0.050 umol/L = 7368027925) FINA (test code = THERAPEUTIC RANGE = FINA) VARIABLE (DEPENDS ON TREATMENT PROTOCOL)TOXIC RANGE = GREATER THAN 10.00 UMOL/L @ 24 HRS ?GREATER THAN ?1.00 UMOL/L @ 48 HRS ?GREATER THAN ?0.10 UMOL/L @ 72 HRS Test developed and characteristics determined by [facility] Laboratory Services. [facility] GLUCOSE (AUTOMATED)2021-12-02 19:55:08 Test Item Value Reference Range Interpretation Comments POCT GLU (test code = 1608679426) 160 mg/dL 70-110 H Lab Interpretation (test code = Abnormal 52708-1) [facility] GLUCOSE (AUTOMATED)2021-12-02 19:08:13 Test Item Value Reference Range Interpretation Comments POCT GLU (test code = 3290960629) >600 70-110 HH Lab Interpretation (test code = Abnormal 90933-7) [facility] GLUCOSE (AUTOMATED)2021-12-02 19:08:13 Test Item Value Reference Range Interpretation Comments POCT GLU (test code = 5979754927) >600 70-110 HH Lab Interpretation (test code = Abnormal 97676-2) [facility] GLUCOSE (AUTOMATED)2021-12-02 19:08:08 Test Item Value Reference Range Interpretation Comments POCT GLU (test code = 4870631557) >600 70-110 HH Lab Interpretation (test code = Abnormal 55251-2) [facility] CALCIUM [id number] 18:54:48 Test Item Value Reference Range Interpretation Comments PTH-INTACT (test code = 30.2 pg/mL 12.0-88.0 9614318630) PTH-CA Interpretation Furthe r clinical (test code = 3085520580) zachary a needed for interpretation. CALCIUM (test code = 6.2 mg/dL 8.6-10.6 L 1292054965) Lab Interpretation (test Abnormal code = 67750-0) [facility] GLUCOSE (AUTOMATED)2021-12-02 18:28:22 Test Item Value Reference Range Interpretation Comments POCT GLU (test code = 8033195779) 176 mg/dL 70-110 H Lab Interpretation (test code = Abnormal 29116-8) [facility] GLUCOSE (AUTOMATED)2021-12-02 16:59:34 Test Item Value Reference Range Interpretation Comments POCT GLU (test code = 7034725596) 214 mg/dL 70-110 H Lab Interpretation (test code = Abnormal 51313-6) [facility]-REACTIVE [id number] 16:19:10 Test Item Value Reference Range Interpretation Comments CRP (test code = 3974830157) 17.1 mg/dL <0.8 H Lab Interpretation (test code = Abnormal 22253-4) [facility] GLUCOSE (AUTOMATED)2021-12-02 16:14:05 Test Item Value Reference Range Interpretation Comments POCT GLU (test code = 2432908119) 221 mg/dL 70-110 H Lab Interpretation (test code = Abnormal 85523-3) [facility] GLUCOSE (AUTOMATED)2021-12-02 15:23:01 Test Item Value Reference Range Interpretation Comments POCT GLU (test code = 9477420892) 209 mg/dL 70-110 H Lab Interpretation (test code = Abnormal 46176-3) [facility] Metabolic Panel (Na, K, Cl, CO2, Glucose, BUN, Creatinine, Ca)2021-12-02 14:42:22 Test Item Value Reference Range Interpretation Comments NA (test code = 144 mmol/L 135-145 3861340141) K (test code = 4.0 mmol/L 3.5-5.0 Slight 4424037976) hemolysis CL (test code = 115 mmol/L 98-108 H 3664885505) CO2 TOTAL (test code 25 mmol/L 23-31 = 8271992302) AGAP (test code = 2-16 0708716402) BUN (test code = 76 mg/dL 7-23 H Slight 7543495688) hemolysis GLUCOSE (test code = 225 mg/dL 70-110 H 4096547422) CREATININE (test code 1.96 mg/dL 0.50-1.04 H = 2800420941) CALCIUM (test code = 6.2 mg/dL 8.6-10.6 L 8417757043) eGFR (test code = mL/min/1.73m2 9428818021) FINA (test code = FINA) Association of [...] tests). Lab Interpretation Abnormal (test code = 75489-6) [facility] GLUCOSE (AUTOMATED)2021-12-02 14:10:31 Test Item Value Reference Range Interpretation Comments POCT GLU (test code = 4943441146) 239 mg/dL 70-110 H Lab Interpretation (test code = Abnormal 09307-9) [facility] HospitalHAPTOGLOBIN, [id number] 13:57:00 Test Item Value Reference Range Interpretation Comments HAPTOGLOB (test code = 1956066663) 219 mg/dL 16-200 H Lab Interpretation (test code = Abnormal 80783-0) [facility] GLUCOSE (AUTOMATED)2021-12-02 13:06:29 Test Item Value Reference Range Interpretation Comments POCT GLU (test code = 0119465412) 237 mg/dL 70-110 H Lab Interpretation (test code = Abnormal 52304-7) [facility] GLUCOSE (AUTOMATED)2021-12-02 12:14:49 Test Item Value Reference Range Interpretation Comments POCT GLU (test code = 0790499041) 235 mg/dL 70-110 H Lab Interpretation (test code = Abnormal 13787-9) [facility] (NA, K, CL, CO2, GLUCOSE, BUN, CREATININE, CA)2021-12-02 11:59:53 Test Item Value Reference Range Interpretation Comments NA (test code = 140 mmol/L 135-145 7807068238) K (test code = 3.7 mmol/L 3.5-5.0 1030290177) CL (test code = 113 mmol/L 98-108 H 1136616039) CO2 TOTAL (test code = 24 mmol/L 23-31 8569506829) AGAP (test code = 2-16 3122166622) BUN (test code = 79 mg/dL 7-23 H 0936969115) GLUCOSE (test code = 206 mg/dL 70-110 H 9590527394) CREATININE (test code = 2.02 mg/dL 0.50-1.04 H 3990504493) CALCIUM (test code = 6.0 mg/dL 8.6-10.6 L 7616688004) eGFR (test code = mL/min/1.73m2 6730744605) FINA (test code = FINA) Association of [...] tests). Lab Interpretation Abnormal (test code = 11449-7) [facility]2021-12-02 11:09:28 Test Item Value Reference Range Interpretation Comments POCT GLU (test code = 4309477071) 217 mg/dL 70-110 H Lab Interpretation (test code = Abnormal 68116-5) [facility] with [id number] 11:07:37 Test Item Value Reference Range Interpretation [...] RDW-SD (test code = 43.1 fL 39.0-49.9 97514-3) RDW-CV (test code = 13.0 % 12.0-15.5 788-0) PLT (test code = See_Comment LL [Automated 777-3) message] The sy stem which generated this result transmitted reference range : 166 - 358 10*3/ ?L. The reference r willem was not used to interpret this result as normal/abnormal . MPV (test code = 11.6 fL 9.5-12.9 89678-1) IPF % (test code = 3.8 % 1.3-7.7 Platelet count 6077163563) measured by fluorescence method. NRBC/100 WBC (test See_Comment [Automat ed code = 2064474245) message] The system which generated this result transmitted reference range : 0.0 - 10.0 /100 WBCs. The refer ence range was not u sed to interpret th is result as normal/abnormal . NRBC x10^3 (test code <0.01 See_Comment [Auto mated = 5546488246) message] The s ystem which generated this result transmitted reference range : 10*3/?L. The reference range was not used to interpret this result as normal/abnormal . SEG % (test code = 20 % 33-76 L 02547-9) LYMPH % (test code = 73 % 14-54 H 22324-8) MONO % (test code = 7 % 0-4 H 72038-3) ANC (test code = 0.07 10*3/uL 1.88-7.09 L 753-4) Lab Interpretation Abnormal (test code = 80838-7) [facility] GLUCOSE (AUTOMATED)2021-12-02 10:14:19 Test Item Value Reference Range Interpretation Comments POCT GLU (test code = 4973156063) 191 mg/dL 70-110 H Lab Interpretation (test code = Abnormal 11205-6) [facility] GLUCOSE (AUTOMATED)2021-12-02 09:13:29 Test Item Value Reference Range Interpretation Comments POCT GLU (test code = 0076442052) 165 mg/dL 70-110 H Lab Interpretation (test code = Abnormal 96915-4) [facility] Metabolic Panel (Na, K, Cl, CO2, Glucose, BUN, Creatinine, Ca)2021-12-02 09:04:15 Test Item Value Reference Range Interpretation Comments NA (test code = 143 mmol/L 135-145 0874779106) K (test code = 3.7 mmol/L 3.5-5.0 9323071419) CL (test code = 113 mmol/L 98-108 H 6618227373) CO2 TOTAL (test code = 24 mmol/L 23-31 6878175146) AGAP (test code = 2-16 8698684101) BUN (test code = 83 mg/dL 7-23 H 3645395311) GLUCOSE (test code = 121 mg/dL 70-110 H 2861512387) CREATININE (test code = 2.12 mg/dL 0.50-1.04 H 9654552875) CALCIUM (test code = 6.2 mg/dL 8.6-10.6 L 1244380159) eGFR (test code = mL/min/1.73m2 9081284414) FINA (test code = FINA) Association of [...] tests). Lab Interpretation Abnormal (test code = 42378-9) [facility] 09:04:15 Test Item Value Reference Range Interpretation Comments ALBUMIN (test code = 7247925047) 2.6 g/dL 3.5-5.0 L Lab Interpretation (test code = Abnormal 17555-6) [facility] 09:04:15 Test Item Value Reference Range Interpretation Comments MAGNESIUM (test code = 8364626560) 2.6 mg/dL 1.7-2.4 H Lab Interpretation (test code = Abnormal 36372-9) [facility]2022-[facility]-23 09:04:15 Test Item Value Reference Range Interpretation Comments PHOSPHORUS (test code = 2464358173) 4.6 mg/dL 2.5-5.0 Lab Interpretation (test code = Normal 26882-5) [facility] (Na, K, Cl, CO2, Glucose, BUN, Creatinine, Ca)2021-12-02 08:25:17 Test Item Value Reference Range Interpretation Comments NA (test code = 143 mmol/L 135-145 3023649464) K (test code = 3.2 mmol/L 3.5-5.0 L 5280968416) CL (test code = 112 mmol/L 98-108 H 1549313048) CO2 TOTAL (test code = 22 mmol/L 23-31 L 4331047263) AGAP (test code = 2-16 1514251109) BUN (test code = 85 mg/dL 7-23 H 9417946722) GLUCOSE (test code = 113 mg/dL 70-110 H 7602286287) CREATININE (test code = 2.23 mg/dL 0.50-1.04 H 9665190279) CALCIUM (test code = 6.3 mg/dL 8.6-10.6 L 7815378136) eGFR (test code = mL/min/1.73m2 6344696295) FINA (test code = FINA) Association of [...] tests). Lab Interpretation Abnormal (test code = 91421-1) [facility] GLUCOSE (AUTOMATED)2021-12-02 08:06:22 Test Item Value Reference Range Interpretation Comments POCT GLU (test code = 5897246517) 125 mg/dL 70-110 H Lab Interpretation (test code = Abnormal 90171-2) [facility] GLUCOSE (AUTOMATED)2021-12-02 07:11:48 Test Item Value Reference Range Interpretation Comments POCT GLU (test code = 8391711527) 88 mg/dL 70-110 Lab Interpretation (test code = Normal 53957-5) [facility] GLUCOSE (AUTOMATED)2021-12-02 05:55:50 Test Item Value Reference Range Interpretation Comments POCT GLU (test code = 9602132563) 104 mg/dL 70-110 Lab Interpretation (test code = Normal 20931-9) [facility] GLUCOSE (AUTOMATED)2021-12-02 05:14:40 Test Item Value Reference Range Interpretation Comments POCT GLU (test code = 3287138376) 120 mg/dL 70-110 H Lab Interpretation (test code = Abnormal 21224-9) [facility] Hospital[facility]par Platelets (in units): 1 Units~Indication: 6) Other - (specify in comments); Special Requirements: Leukoreduced, Puwvuowxvo4771-03-59 04:51:39 Test Item Value Reference Range Interpretation Comments Unit Blood Type (test A Pos code = 4410) ISBT Blood Type Code (test code = 970372) Unit Number (test code [id number] = 4411) Blood Expiration Date & Time (test code = 879808) Status Information Issued (test code = 4412) Product Identification Platelets (test code = 4413) Product Code (test [id number] Performed at [facility] code = 4414) Laboratory Services - [facility] [address] [place] [address] 462[address]Umqt Free: [phone] A No. [id number] [facility] GLUCOSE (AUTOMATED)2021-12-02 03:58:37 Test Item Value Reference Range Interpretation Comments POCT GLU (test code = 2045710578) 140 mg/dL 70-110 H Lab Interpretation (test code = Abnormal 96009-0) [facility] GLUCOSE (AUTOMATED)2021-12-02 03:08:37 Test Item Value Reference Range Interpretation Comments POCT GLU (test code = 0202948295) 178 mg/dL 70-110 H Lab Interpretation (test code = Abnormal 03362-1) [facility] HospitalBetahydroxy-Igpitmvc2880-95-09 02:57:55 Test Item Value Reference Range Interpretation Comments BOH (test code = 0.4 mmol/L 7870146246) FINA (test code = Normal Ranges: ? ? FINA) Nonfasting ? Less than 0.1 mmol/L ? ? Overnight Fast ? ? ? Less than 0.4 mmol/L ? ? Fasting (1-2 weeks) ?6-8 mmol/L Test developed and characteristics determined by [facility] Laboratory Services. [facility] (Na, K, Cl, CO2, Glucose, BUN, Creatinine, Ca)2021-12-02 02:48:36 Test Item Value Reference Range Interpretation Comments NA (test code = 140 mmol/L 135-145 2540087894) K (test code = 3.3 mmol/L 3.5-5.0 L 1011857900) CL (test code = 106 mmol/L 98-108 9164554562) CO2 TOTAL (test code = 24 mmol/L 23-31 3143762692) AGAP (test code = 2-16 5325035005) BUN (test code = 91 mg/dL 7-23 H 8521741689) GLUCOSE (test code = 185 mg/dL 70-110 H 5012294967) CREATININE (test code = 2.37 mg/dL 0.50-1.04 H 0645621275) CALCIUM (test code = 6.5 mg/dL 8.6-10.6 L 7020791882) eGFR (test code = mL/min/1.73m2 5787819817) FINA (test code = FINA) Association of [...] tests). Lab Interpretation Abnormal (test code = 42316-1) [facility] HospitalVITAMIN B12, [id number] 02:27:52 Test Item Value Reference Range Interpretation Comments VIT B12 (test code = 490 pg/mL 240-930 7651731021) FINA (test code = FINA) Biotin has been reported to cause a positive bias, interpret results relative to patient's use of biotin. Lab Interpretation (test Normal code = 45156-8) [facility] ([facility]ATED)2021-12-02 02:17:56 Test Item Value Reference Range Interpretation Comments POCT GLU (test code = 3133631696) 211 mg/dL 70-110 H Lab Interpretation (test code = Abnormal 50630-9) [facility] HospitalHEPATITIS B SURFACE [id number] 01:27:48 Test Item Value Reference Range Interpretation Comments HBsAB (test code = Negative 3410751033) HBsAb mIU/mL Semi-Quantitative (test code = 5963091609) FINA (test code = Interpretation: FINA) ?Hepatitis B Surface Antibody ? Negative - Patient is considered to be not immune to infection with HBV. ? ? Positive - Anti-HBs detected at greater than or equal to 12 mIU/mL. ?Patient is considered to be immune to infection with HBV. ? [facility] HospitalHB ANTIBODY (IGM & IGG)2021-12-02 01:27:48 Test Item Value Reference Range Interpretation Comments HBC (test code = 7050744830) Negative HBC Semi-Quantitative (test code = 6059232758) [facility] HospitalHCV [id number] 01:27:48 Test Item Value Reference Range Interpretation Comments HCV Ab (test code = 66811-0) Negative HCV Semi-Quantitative (test code = 28531-5) [facility] HospitalABORH Confirmation (Lab Only)2021-12-02 01:06:47 Test Item Value Reference Range Interpretation Comments ABO & RH (test code O Positive Performe d at UT = 20) Laboratory Serv [facility] [place] [address] 88427Owxp Free: [phone] A No. [id number] [facility])2021-12-02 01:05:22 Test Item Value Reference Range Interpretation Comments POCT GLU (test code = 5539609362) 269 mg/dL 70-110 H Lab Interpretation (test code = Abnormal 86072-7) [facility] HospitalHIV 1/2 AG-AB WITH [id number] 00:39:06 Test Item Value Reference Range Interpretation Comments HIV Negative Negative Semi-quantitative (test code = 40017-4) FINA (test code = Non-reactive for HIV-1 FINA) antigen and HIV-1/HIV-2 antibodies. ?No laboratory evidence of HIV infection. ?Repeat in 2-4 weeks if acute HIV infection is suspected. [facility]HEPATITIS B SURFACE [id number] 00:29:45 Test Item Value Reference Range Interpretation Comments HBsAg Semi-Quantitative (test code = Negative Negative 5195-3) [facility] HospitalType and Screen - ONCE [id number] 00:19:48 Test Item Value Reference Range Interpretation Comments ABO & RH (test code O Positive Performe d at [facility] = 20) Laboratory [facility] [place] [address]Inao Free: [phone] A No. [id number] IAT (test code = Negative [place]formed [place] 1185) Laboratory [facility] Blood [facility]2 [address] [place], [place] [address], [place] [address]Ofgc Free: [phone] A No. [id number] [facility] Metabolic Panel (Na, K, Cl, CO2, Glucose, BUN, Creatinine, Ca)2021-12-02 00:10:04 Test Item Value Reference Range Interpretation Comments NA (test code = 138 mmol/L 135-145 4001990525) K (test code = 3.2 mmol/L 3.5-5.0 L 9211319292) CL (test code = 103 mmol/L 98-108 3406098857) CO2 TOTAL (test code = 24 mmol/L 23-31 8313535567) AGAP (test code = 2-16 9408640911) BUN (test code = 93 mg/dL 7-23 H 5357533301) GLUCOSE (test code = 355 mg/dL 70-110 H 3918924138) CREATININE (test code = 2.56 mg/dL 0.50-1.04 H 3734331395) CALCIUM (test code = 6.6 mg/dL 8.6-10.6 L 4699242524) eGFR (test code = mL/min/1.73m2 5100092744) FINA (test code = FINA) Association of [...] tests). Lab Interpretation Abnormal (test code = 44347-6) [facility] GLUCOSE (AUTOMATED)2021-12-02 00:05:47 Test Item Value Reference Range Interpretation Comments POCT GLU (test code = 9510533337) 357 mg/dL 70-110 H Lab Interpretation (test code = Abnormal 03808-7) [facility] GLUCOSE (AUTOMATED)2021-12-01 23:03:55 Test Item Value Reference Range Interpretation Comments POCT GLU (test code = 9901559241) 435 mg/dL 70-110 H Lab Interpretation (test code = Abnormal 50528-8) [facility] GLUCOSE (AUTOMATED)2021-12-01 22:11:05 Test Item Value Reference Range Interpretation Comments POCT GLU (test code = 3817576012) 500 mg/dL 70-110 HH Lab Interpretation (test code = Abnormal 17750-7) [facility] HospitalFERRITIN [id number] 21:57:21 Test Item Value Reference Range Interpretation Comments FERRITIN (test code = 460.0 ng/mL 11.0-264.0 H 4137666377) FINA (test code = FINA) Biotin has been reported to cause a negative bias, interpret results relative to patient's use of biotin. Lab Interpretation (test Abnormal code = 57207-7) [facility] HospitalIRON [id number] 21:47:56 Test Item Value Reference Range Interpretation Comments IRON (test code = 157 ug/dL 50-160 Slight hem olysis 4542037699) TIBC (test code = 249 ug/dL 250-410 L 1297927509) % FE SAT (test code = 63 % 20-50 H 6501062455) Lab Interpretation (test Abnormal code = 66238-5) [facility] HospitalHEPATIC FUNCTION PANEL (94490) (ALB,T.PRO,BILI T,BU/BC,ALT,AST,ALK PHOS)2021-12-01 21:18:48 Test Item Value Reference Range Interpretation Comments TOTAL BILI (test code = 8355023417) 1.0 mg/dL 0.1-1.1 BILI UNCON (test code = 5561846790) 0.3 mg/dL 0.1-1.1 BILI CONJ (test code = 2449359442) 0.0 mg/dL 0.0-0.3 T PROTEIN (test code = 3341398041) 6.1 g/dL 6.3-8.2 L ALBUMIN (test code = 0683808104) 3.1 g/dL 3.5-5.0 L ALK PHOS (test code = 7188949265) 82 U/L 34-122 ALTv (test code = 1742-6) 20 U/L 5-35 AST(SGOT) (test code = 2651381191) 29 U/L 13-40 Lab Interpretation (test code = Abnormal 81260-4) [facility] HospitalURIC [id number] 21:18:48 Test Item Value Reference Range Interpretation Comments URIC ACID (test code = 0029662732) 9.9 mg/dL 2.9-6.0 H Lab Interpretation (test code = Abnormal 16154-2) [facility] HospitalOsmolality [id number] 21:11:01 Test Item Value Reference Range Interpretation Comments OSMOLALITY (test code = See_Comment HH [Au tomated message] 2692-2) The system [facility] generated this result transmitted ref erence range: 278 - 30 5 mOsm/kg. The reference range was not used to int erpret this result as normal/abnormal . Lab Interpretation (test Abnormal code = 23661-9) [facility] HospitalBASI METABOLIC PANEL (NA, K, CL, CO2, GLUCOSE, BUN, CREATININE, CA)2021-12-01 21:10:25 Test Item Value Reference Range Interpretation Comments NA (test code = 132 mmol/L 135-145 L 1477304478) K (test code = 3.9 mmol/L 3.5-5.0 5377788600) CL (test code = 97 mmol/L 98-108 L 2742197679) CO2 TOTAL (test code = 21 mmol/L 23-31 L 8167084384) AGAP (test code = 2-16 4320046679) BUN (test code = 101 mg/dL 7-23 H 6593408112) GLUCOSE (test code = 726 mg/dL 70-110 HH 6568801850) CREATININE (test code = 2.70 mg/dL 0.50-1.04 H 0222479068) CALCIUM (test code = 6.6 mg/dL 8.6-10.6 L 5162519130) eGFR (test code = mL/min/1.73m2 3032689969) FINA (test code = FINA) Association of [...] tests). Lab Interpretation Abnormal (test code = 38870-9) [facility] [id number] 20:59:43 Test Item Value Reference Range Interpretation Comments IRON (test code = 7825708104) 143 ug/dL 50-160 TIBC (test code = 6445116643) 251 ug/dL 250-410 % FE SAT (test code = 4155896904) 57 % 20-50 H Lab Interpretation (test code = Abnormal 28260-5) [facility] HospitalTOTAL IRON BINDING [id number] 20:59:43 Test Item Value Reference Range Interpretation Comments TIBC (test code = 5439693574) 251 ug/dL 250-410 Lab Interpretation (test code = Normal 83641-6) [facility] HospitalGlycosylated Hemoglobin (A1C)2021-12-01 20:56:03 Test Item Value Reference Range Interpretation Comments HGB A1C (test code = 11.4 % 4.0-5.7 H 4548-4) FINA (test code = FINA) Reference RangesNormal: <5.7%Prediabetes: 5.7 - 6.4%Diabetes: > 6.5% Lab Interpretation (test Abnormal code = 55066-0) [facility] HospitalMagnesium [id number] 20:47:01 Test Item Value Reference Range Interpretation Comments MAGNESIUM (test code = 2329308847) 2.5 mg/dL 1.7-2.4 H Lab Interpretation (test code = Abnormal 05176-8) [facility] HospitalPhosphorus [id number] 20:47:01 Test Item Value Reference Range Interpretation Comments PHOSPHORUS (test code = 0414260094) 7.4 mg/dL 2.5-5.0 H Lab Interpretation (test code = Abnormal 20909-8) [facility] HospitalLACTATE [id number] 20:24:15 Test Item Value Reference Range Interpretation Comments LDH (test code = 5720139772) 440 U/L 300-600 Lab Interpretation (test code = Normal 44778-8) [facility] HospitalBETA [id number] 20:23:15 Test Item Value Reference Range Interpretation Comments BOH (test code = 2.4 mmol/L 3334928454) FINA (test code = Normal Ranges: ? ? FINA) Nonfasting ? Less than 0.1 mmol/L ? ? Overnight Fast ? ? ? Less than 0.4 mmol/L ? ? Fasting (1-2 weeks) ?6-8 mmol/L Test developed and characteristics determined by [facility] Laboratory Services. [facility] HospitalRETICULOCYTES [id number] 19:22:07 Test Item Value Reference Range Interpretation Comments RETIC Count Automated 0.39 % 0.51-1.90 L (test code = 5158091621) RETIC Absolute Count <0.0100 See_Comment L [Autom ated message] (test code = 2961562848) The system which generated this result transmitted ref erence range: 0.0230 - 0.0950 10*6/?L. The reference range was not used to int erpret this result as normal/abnormal . IRF % (test code = 4.90 % 2.10-12.60 8614171208) RETIC-HE (test code = 42.9 pg 28.1-35.8 H 1443971048) Lab Interpretation (test Abnormal code = 80156-3) [facility] Arterial Blood Gas.2021-12-01 17:37:26 Test Item Value Reference Range Interpretation Comments PH (test code = 2) 7.35-7.45 PCO2 (test code = See_Comment [Automate d message] 1611498847) The system [facility] generated this result transmitted ref erence range: 35 - 45 mmHg. The reference r willem was not used to interpret this result as normal/abnor mal. PO2 (test code = See_Comment L [Automated message] 8122545318) The system [facility]21 generated this result transmitted ref erence range: 80 - 100 mmHg. The reference r willem was not used to interpret this result as normal/abnor mal. HCO3 (test code = See_Comment L [Automate d message] 6971454254) The system [facility]21 generated this result transmitted ref erence range: 22 - 26 mEq/L. The reference r willem was not used to interpret this result as normal/abnor mal. BE (test code = See_Comment L [Automated message] 2585471939) The system [facility]21 generated this result transmitted ref erence range: -3.0 - 3 .0 mEq/L. The refe rence range was not u sed to interpret this result as normal/abnor mal. Lab Interpretation (test Abnormal code = 86655-8) [facility] HospitalBASI METABOLIC PANEL (NA, K, CL, CO2, GLUCOSE, BUN, CREATININE, CA)2021-12-01 15:00:17 Test Item Value Reference Range Interpretation Comments NA (test code = 132 mmol/L 135-145 L 4140575467) K (test code = 4.5 mmol/L 3.5-5.0 4165907420) CL (test code = 94 mmol/L 98-108 L 3453273166) CO2 TOTAL (test code = 20 mmol/L 23-31 L 9415437993) AGAP (test code = 2-16 H 2706750131) BUN (test code = 101 mg/dL 7-23 H 8548306695) GLUCOSE (test code = 671 mg/dL 70-110 HH 9799545111) CREATININE (test code = 2.83 mg/dL 0.50-1.04 H 8814469591) CALCIUM (test code = 6.9 mg/dL 8.6-10.6 L 3687898658) eGFR (test code = mL/min/1.73m2 8072347618) FINA (test code = FINA) Association of [...] tests). Lab Interpretation Abnormal (test code = 73912-2) [facility] HospitalGlycosylated Hemoglobin (A1C)2021-12-01 13:48:59 Test Item Value Reference Range Interpretation Comments HGB A1C (test code = 11.8 % 4.0-5.7 H 4548-4) FINA (test code = FINA) Reference RangesNormal: <5.7%Prediabetes: 5.7 - 6.4%Diabetes: > 6.5% Lab Interpretation (test Abnormal code = 12526-4) [facility] HospitalCBC WITHOUT [id number] 11:58:50 Test Item Value Reference Range Interpretation Comments WBC (test code = See_Comment LL [Automated message] 6690-2) The system [facility]21 generated this result transmitted ref erence range: 4.30 - 1 1.10 10*3/?L. The reference range was not used to int erpret this result as normal/abnormal . RBC (test code = 789-8) See_Comment L [Au tomated message] The system Lab21 generated this result transmitted ref erence range: [...] See_Comment LL [Au tomated message] The system Lab21 generated this result transmitted ref erence range: 166 - 35 8 10*3/?L. The reference range was not used to int erpret this result as normal/abnormal . MPV (test code = Not Measure d 64839-3) RDW-CV (test code = 13.3 % 12.0-15.5 788-0) RDW-SD (test code = 45.8 fL 39.0-49.9 51618-6) NRBC x10^3 (test code = <0.01 See_Comment [Au tomated message] 1111630837) The system Lab21 generated this result transmitted ref erence range: 10*3/?L. The reference range was not used to int erpret this result as normal/abnormal . NRBC/100 WBC (test code See_Comment [Au tomated message] = 5980889276) The system [employer] [facility] generated this result transmitted ref erence range: 0.0 - 10 .0 /100 WBCs. The reference range was not used to int erpret this result as normal/abnormal . IPF % (test code = 8.9 % 1.3-7.7 H Platelet count 2078338926) measured by fluorescence me thod. Lab Interpretation Abnormal (test code = 97972-3) [facility] HospitalProthrombin Time / [id number] 11:29:17 Test Item Value Reference Range Interpretation Comments PROTIME PATIENT (test See_Comment [Auto mated message] code = 5964-2) The system [employer] [facility] generated this result transmitted ref erence range: 10.1 - 1 2.6 Seconds. The re ference range was not u sed to interpret this result as normal/abnor mal. INR (test code = 6301-6) Nor mal INR <1.1; Warfarin Therap eutic range 2.0 to 3. 0 or 2.5 to 3.5, dep ending upon the indica tions. Lab Interpretation (test Normal code = 21456-0) [facility] HospitalaPTT2022-06-22 11:29:17 Test Item Value Reference Range Interpretation Comments APTT Patient (test code = See_Comment [ Automated message] 3173-2) The system [employer] [facility] generated this result transmitted ref erence range: 26 - 36 Seconds. The re ference range was not u sed to interpret this result as normal/abnor mal. Lab Interpretation (test Normal code = 16935-0) [facility]"
[2022-08-01] MEDS ORDERED: IBUPROFEN 200 MG TAB PO ONE (00:02)
[2022-08-01] MEDS ORDERED: IBUPROFEN 400 MG TAB ONE (00:02)
[2022-08-01 00:53] LABS: SARS-COV-2 RT PCR NEGATIVE (NEGATIVE)
[2022-08-01 01:32] LABS: Absolute Lymphocytes (CBC) 0.3 K/uL (0.7-4.9); Hematocrit 26.2 % (36.0-45.0); Lymphocytes % 3.1 % (15.3-44.8); MCV 99.4 fL (80-100); MPV 9.2 fL (7.6-11.3); RBC Red Blood Cell Count 2.64 M/uL (3.86-4.86)
[2022-08-01 01:33] LABS: Protime INR 1.19
[2022-08-01 02:02] LABS: Albumin 2.6 g/dL (3.4-5.0); Bilirubin Total 0.4 mg/dL (0.2-1.0); Potassium 3.6 mmol/L (3.5-5.1); Protein, Total 5.9 g/dL (6.4-8.2); Troponin High Sensitivity 31.6 pg/mL (<58.9)
[2022-08-01 02:42] LABS: Blood Morphology Comment NOT SEEN (NOT SEEN); Platelet Estimate ADEQ
[2022-08-01] MEDS ORDERED: CEFEPIME 2 GM VIAL ONE (03:35)
[2022-08-01] MEDS ORDERED: NA CHLORIDE 0.9% 100 ML ONE (03:35)
[2022-08-01] MEDS ORDERED: CALCIUM GLUCONATE 1 GM IVPB 1 GM/50 ML BAG IV ONE (03:35)
[2022-08-01 03:37] LABS: Urine Blood Trace-lysed (Negative); Urine Glucose Negative (Negative); Urine Protein 3+ (Negative); Urine pH 5.5 (5.0-7.0)
--- NOTE | 2022-08-01 03:48 | ER ---
Nurse's Notes [facility] Name: Gena Feng Age: 62 yrs Sex: Female : 1960 Arrival Date: 07/31/2022 Time: 23:23 Bed 4 Private MD: Diagnosis: Bandemia Presentation: 07/31 23:29 Chief complaint: Patient states: C/o cough, body aches, and chills all day today since bb this morning. Coronavirus screen: Vaccine status: Patient reports receiving the 2nd dose of the covid vaccine. cough unrelated to allergies, fever. Ebola Screen: No symptoms or risks identified at this time. Initial Sepsis Screen: Does the patient meet any 2 criteria? HR > 90 bpm. Does the patient have a suspected source of infection? No. Patient's initial sepsis screen is negative. Risk Assessment: Do you want to hurt yourself or someone else? Patient reports no desire to harm self or others. Onset of symptoms was July 31, 2022. Care prior to arrival: Medication(s) given: Tylenol, 1000 mg, 30 mins NUTRIENT MANAGEMENT SPECIALIST. 23:29 Method Of Arrival: Wheelchair bb 23:29 Acuity: AMAYA 3 bb Historical: - Allergies: 23:32 Codeine; bb 23:32 Sulfa (Sulfonamide Antibiotics); bb - Home Meds: 23:32 amlodipine 2.5 mg tab 1 tab once daily [Active]; calcitriol 0.5 mcg Oral cap 1 cap once bb daily [Active]; doxazosin 1 mg Oral tab 1 tab twice a day [Active]; doxepin 10 mg Oral cap nightly [Active]; furosemide 40 mg Oral tab MWF only [Active]; hydralazine 50 mg Oral tab 1 tab three times a day [Active]; levothyroxine 150 mcg tab 1 tab once daily [Active]; magnesium oxide 400 mg magnesium Oral tab daily [Active]; pantoprazole 40 mg Oral TbEC once daily [Active]; Levemir U-100 Insulin 100 unit/mL subcutaneous soln 40 unit daily [Active]; Novolog U-100 Insulin aspart 100 unit/mL Sub-Q soln 22 unit three times a day [Active]; Trulicity 1.5 mg/0.5 mL subcutaneous pnij once wkly [Active]; fenofibrate 54 mg Oral tab 1 tab once daily [Active]; folic acid 1 mg Oral tab 1 tab once daily [Active]; metoprolol tartrate 25 mg Oral tab 1 tab 2 times per day [Active]; prednisone 50 mg oral tab [Active]; Fish Oil Oral daily [Active]; Nuretin 500-100 mg Oral cap daily [Active]; calcitriol Oral MWF [Active]; hydroxychloroquine 200 mg Oral tab 1 tab once daily [Active]; - PMHx: 23:32 diabetes mellitus; Hypertensive disorder; Hypothyroidism; Rheumatoid Arthritis; bb - PSHx: 23:32 None; bb - Immunization history:: Client reports receiving the 2nd dose of the Covid vaccine. - Social history:: Smoking status: Patient denies any tobacco usage or history of. Screenin/20 01:52 [facility] ED Fall Risk Assessment (Adult) Mobility Assist Device Used Yes (1 pt) as6 Score/Fall Risk Level 0 - 2 = Low Risk. Abuse screen: Denies threats or abuse. Denies injuries from another. Nutritional screening: No deficits noted. Tuberculosis screening: No symptoms or risk factors identified. Assessment: 00:00 General: Appears ill, obese, Behavior is calm, cooperative, drowsy, Reports chills for as6 fever for feeling ill for fatigue for. 00:00 Pain: Complains of pain in generalized. as6 00:00 Neuro: Level of Consciousness is drowsy, easily able to arouse . Respiratory: Reports as6 cough that is Respiratory effort is even, unlabored. Vital Signs: 07/31 23:29 BP 159 / 69; Pulse 106; Resp 18; Temp 101.0(O); Pulse Ox 95% on R/A; Weight 108.86 kg bb (R); Height 5 ft. 2 in. (157.48 cm) (R); 08/01 00:29 BP 124 / 55; Pulse 89; Resp 17 S; Pulse Ox 97% on R/A; as6 01:09 BP 124 / 55; Pulse 86; Resp 19 S; Temp 98.4(O); Pulse Ox 96% on R/A; as6 04:47 BP 109 / 49; Pulse 74; Resp 16 S; Temp 98.2(O); Pulse Ox 97% on R/A; as6 04:48 BP 110 / 55; as6 07/31 23:29 Body Mass Index 43.90 (108.86 kg, 157.48 cm) justin ED Course: 07/31 23:23 Patient arrived in ED. jj6 23:26 Diamante Montanez FNP-C is [facility]. kb 23:26 Andrea Sanders MD is Attending Physician. kb 23:32 Triage completed. bb 23:32 Arm band placed on. bb 23:49 Mode Morales, RN is Primary Nurse. as6 08/01 00:05 COVID-19/FLU A+B Sent. as6 01:51 Bed in low position. Call light in reach. Side rails up X2. Adult w/ patient. Client as6 placed on continuous cardiac and pulse oximetry monitoring. NIBP monitoring applied. 02:03 Notified ED physician of a critical lab result(s). Lactate of 2.2, Calcium of 6.6 Dr justin Sanders notified. 02:42 Notified ED physician of a critical lab result(s). Bands of 10% Dr Sanders notified. bb 03:42 Urine Culture Sent. pf1 03:42 Urine Microscopic Only Sent. pf1 03:47 Rafael Miguel MD is Hospitalizing Provider. rt 04:52 No provider procedures requiring assistance completed. Patient admitted, IV remains in as6 place. Administered Medications: 00:06 Drug: Ibuprofen 600 mg Route: PO; as6 03:36 Drug: Cefepime 2 grams Route: IVPB; Rate: 200 ml/hr; Infused Over: 30 mins; Site: right as6 hand; 04:30 Drug: Calcium Gluconate 1 grams Route: IVPB; Infused Over: 60 mins; Site: right hand; as6 Medication: 01:52 VIS not applicable for this client. as6 Outcome: 03:47 Decision to Hospitalize by Provider. rt 04:53 Admitted to Med/surg accompanied by tech, via wheelchair, room 215, with chart, Report as6 called to Olivia LOMELI 04:53 Condition: stable 04:53 Instructed on the need for admit. 05:13 Patient left the ED. as6 Signatures: Diamante Montanez FNP-C FNP-Ckb Ballard, Brenda, RN RN bb Ernestina Mckeon jj6 Mode Morales, YANI RN as6 Andrea Sanedrs MD MD rt Jaelyn romero RN RN pf1 Corrections: (The following items were deleted from the chart) 07/31 23:39 23:32 Immunization history: Client reports having NOT received the Covid vaccine. bb bb
--- NOTE | 2022-08-01 03:48 | EDPHYS ---
Physician Documentation [facility] Name: Gena Feng Age: 62 yrs Sex: Female : 1960 Arrival Date: 07/31/2022 Time: 23:23 Bed 4 Private MD: ED Physician Andrea Sanders HPI: 07/31 23:45 This 62 yrs old Female presents to ER via Wheelchair with complaints of Chills.kb 23:45 The patient or guardian reports cough, that is intermittent, described as moderate, flu kb symptoms, chills. Onset: The symptoms/episode began/occurred this morning. Severity of symptoms: At their worst the symptoms were moderate, in the emergency department the symptoms are unchanged. Modifying factors: The symptoms are alleviated by nothing, the symptoms are aggravated by nothing. Associated signs and symptoms: Pertinent positives: fever, rhinorrhea. The patient has not experienced similar symptoms in the past. The patient has been recently been admitted at [facility]. Historical: - Allergies: 23:32 Codeine; bb 23:32 Sulfa (Sulfonamide Antibiotics); bb - Home Meds: 23:32 amlodipine 2.5 mg tab 1 tab once daily [Active]; calcitriol 0.5 mcg Oral cap 1 cap once bb daily [Active]; doxazosin 1 mg Oral tab 1 tab twice a day [Active]; doxepin 10 mg Oral cap nightly [Active]; furosemide 40 mg Oral tab MWF only [Active]; hydralazine 50 mg Oral tab 1 tab three times a day [Active]; levothyroxine 150 mcg tab 1 tab once daily [Active]; magnesium oxide 400 mg magnesium Oral tab daily [Active]; pantoprazole 40 mg Oral TbEC once daily [Active]; Levemir U-100 Insulin 100 unit/mL subcutaneous soln 40 unit daily [Active]; Novolog U-100 Insulin aspart 100 unit/mL Sub-Q soln 22 unit three times a day [Active]; Trulicity 1.5 mg/0.5 mL subcutaneous pnij once wkly [Active]; fenofibrate 54 mg Oral tab 1 tab once daily [Active]; folic acid 1 mg Oral tab 1 tab once daily [Active]; metoprolol tartrate 25 mg Oral tab 1 tab 2 times per day [Active]; prednisone 50 mg oral tab [Active]; Fish Oil Oral daily [Active]; Nuretin 500-100 mg Oral cap daily [Active]; calcitriol Oral MWF [Active]; hydroxychloroquine 200 mg Oral tab 1 tab once daily [Active]; - PMHx: 23:32 diabetes mellitus; Hypertensive disorder; Hypothyroidism; Rheumatoid Arthritis; bb - PSHx: 23:32 None; bb - Immunization history:: Client reports receiving the 2nd dose of the Covid vaccine. - Social history:: Smoking status: Patient denies any tobacco usage or history of. ROS: 23:43 Abdomen/GI: Negative for abdominal pain, nausea, vomiting, diarrhea, and constipation. kb 23:43 Constitutional: Positive for chills. 23:43 ENT: Positive for rhinorrhea, sinus congestion. 23:43 Respiratory: Positive for cough, dyspnea on exertion. 23:43 All other systems are negative. Exam: 23:46 Constitutional: This is a well developed, well nourished patient who is awake, alert, kb and in no acute distress. Head/Face: Normocephalic, atraumatic. ENT: Moist Mucous membranes Cardiovascular: Regular rate and rhythm with a normal S1 and S2. No gallops, murmurs, or rubs. No pulse deficits. Skin: Warm, dry with normal turgor. Normal color. MS/ Extremity: Pulses equal, no cyanosis. Neurovascular intact. Full, normal range of motion. Neuro: Awake and alert, GCS 15, oriented to person, place, time, and situation. Moves all extremities. Normal gait. 23:46 Respiratory: the patient does not display signs of respiratory distress, Respirations: normal, Breath sounds: wheezing: expiratory that is mild, is scattered. 08/01 00:31 Cardiovascular: Edema: 2+ edema to level of left foot and right foot. kb 03:29 ECG was reviewed by the Attending Physician. rt Vital Signs: 07/31 23:29 BP 159 / 69; Pulse 106; Resp 18; Temp 101.0(O); Pulse Ox 95% on R/A; Weight 108.86 kg bb (R); Height 5 ft. 2 in. (157.48 cm) (R); 08/01 00:29 BP 124 / 55; Pulse 89; Resp 17 S; Pulse Ox 97% on R/A; as6 01:09 BP 124 / 55; Pulse 86; Resp 19 S; Temp 98.4(O); Pulse Ox 96% on R/A; as6 04:47 BP 109 / 49; Pulse 74; Resp 16 S; Temp 98.2(O); Pulse Ox 97% on R/A; as6 04:48 BP 110 / 55; as6 07/31 23:29 Body Mass Index 43.90 (108.86 kg, 157.48 cm) bb MDM: 07/31 23:27 Patient medically screened. kb 23:46 Differential Diagnosis: Bronchitis Influenza Upper Respiratory Infection Pneumonia. kb Data reviewed: vital signs, nurses notes. Historians other than the Patient: Family Member: family. ED course: Patient is a 62-year-old female who presents with cough, congestion and chills that started this morning. States patient's temperature was checked but did not reveal a fever at home. States the chills are causing body aches. On exam patient does have a fever of 101 with mild wheezing. 2+ edema to lower extremities. No respiratory distress. Will test for COVID and flu and do a chest x-ray to rule out pneumonia. Patient reports shortness of breath on exertion, when walking to the restroom. Will do serum labs.. 08/01 00:33 Transition of care: After a detail discussion of the patient's case, care is kb transferred to Andrea Sanders MD. 04:02 Differential Diagnosis Sepsis, UTI, pneumonia, viral syndrome. Consideration of rt Admission/Observation Patient was admitted/placed on observation. Management of patient was discussed with the following: Hospitalist: Agrees to admit. I considered the following discharge prescriptions or medication management in the emergency department Medications were administered in the Emergency Department. See MAR. External Records Reviewed: Inpatient record: Creatinine is close to baseline. Counseling: I had a detailed discussion with the patient and/or guardian regarding: the historical points, exam findings, and any diagnostic results supporting the discharge/admit diagnosis, lab results, radiology results, the need for further work-up and treatment in the hospital. Response to treatment: the patient's symptoms have markedly improved after treatment. ED course: Patient with recent admission for anasarca, appears to be volume overloaded, believe that further IV fluids will worsen the patient's condition. Patient does not meet criteria for septic shock.. 07/31 23:31 Order name: COVID-19/FLU A+B kb 08/01 00:32 Order name: Blood Culture Adult (2) kb 08/01 00:32 Order name: CBC with Diff kb 08/01 00:32 Order name: CMP kb 08/01 00:32 Order name: Lactate w/ 2H reflex if indic. kb 08/01 00:32 Order name: Protime (+inr) kb 08/01 00:32 Order name: Ptt, Activated kb 08/01 00:32 Order name: BNP kb 08/01 00:32 Order name: Troponin High Sensitivity kb 08/01 00:53 Order name: COVID-19/FLU A+B; Complete Time: 01:06 EDMS 08/01 01:33 Order name: Protime (+INR); Complete Time: 01:56 EDMS 08/01 01:33 Order name: PTT, Activated Partial Thromb; Complete Time: 01:56 EDMS 08/01 01:45 Order name: CBC with Automated Diff; Complete Time: 03:03 EDMS 08/01 02:03 Order name: Lactate w/ 2H reflex if indic.; Complete Time: 02:09 EDMS 07/31 23:31 Order name: Chest Single View XRAY kb 08/01 00:32 Order name: EKG; Complete Time: 00:32 kb 08/01 02:03 Order name: Comprehensive Metabolic Panel; Complete Time: 02:09 EDMS 08/01 02:03 Order name: Troponin High Sensitivity; Complete Time: 02:09 EDMS 08/01 02:03 Order name: NT PRO-BNP; Complete Time: 02:09 EDMS 08/01 02:42 Order name: Manual Differential; Complete Time: 03:03 EDMS 08/01 03:37 Order name: Urine Microscopic Only la08/01 03:37 Order name: Urine Culture la08/01 03:37 Order name: Urine Dipstick-Ancillary; Complete Time: 04:02 EDMS 08/01 03:49 Order name: Abdomen Limited US la08/01 04:09 Order name: Chest Abdomen Pelvis Wo Con CT la08/01 04:13 Order name: Urine Microscopic Only; Complete Time: 04:24 EDMS 08/01 04:57 Order name: Lactate Sepsis 2 HR Follow-up; Complete Time: 08:39 EDMS 08/01 00:18 Order name: Urine Dipstick-Ancillary (obtain specimen); Complete Time: 03:38 kb 08/01 00:32 Order name: Accucheck; Complete Time: :09 kb 08/01 00:32 Order name: Cardiac monitoring; Complete Time: : kb 08/01 00:32 Order name: EKG - Nurse/Tech; Complete Time: :09 kb 08/01 00:32 Order name: IV Saline Lock - Large Bore; Complete Time: : kb 08/01 00:32 Order name: Labs collected and sent; Complete Time: : kb 08/01 00:32 Order name: O2 Per Protocol; Complete Time: : kb 08/01 00:32 Order name: O2 Sat Monitoring; Complete Time: : kb 08/01 00:32 Order name: Vital Signs; Complete Time: : kb EC:29 Rate is 86 beats/min. Rhythm is regular, Normal Sinus Rhythm with No ectopy. QRS [place] rt is Normal. MT interval is normal. QRS interval is normal. QT interval is normal at 488 msec. No Q waves. Clinical impression: NSR w/ Non-specific ST/T Changes. Administered Medications: 00:06 Drug: Ibuprofen 600 mg Route: PO; as6 03:36 Drug: Cefepime 2 grams Route: IVPB; Rate: 200 ml/hr; Infused Over: 30 mins; Site: right as6 hand; 04:30 Drug: Calcium Gluconate 1 grams Route: IVPB; Infused Over: 60 mins; Site: right hand; as6 Disposition: 04:03 Co-signature as Attending Physician, Andrea Sanders MD I reviewed the patient's care rt provided by Advanced Practice Provider \T\ agree w/ the diagnosis \T\ care plan. I personally saw the pt \T\ performed a substantive portion of the visit, incldng all aspects of the (History/Exam/Medical Decision Making). PA/GROUND SUPPORT EQUIPMENT ASSEMBLER's history reviewed, patient interviewed, and examined. HPI: Patient presents with chills, resolved at the time of evaluation. My personal exam of patient reveals: Patient is awake, alert, oriented with no acute distress I agree with assessment and care plan and confirm the diagnosis (es) above. Disposition Summary: 08/01/22 03:47 Hospitalization Ordered Hospitalization Status: Observation rt Provider: Rafael Miguel rt Location: Telemetry/MedSurg (observation) rt Condition: Stable rt Problem: new rt Symptoms: have improved rt Bed/Room Type: Standard rt Room Assignment: 215(08/01/22 04:27) cg Diagnosis - Bandemia rt Forms: - Medication Reconciliation Form rt - SBAR form rt Signatures: Dispatcher [employer] EDMS Diamante Montanez, SILAS SANTIAGO-Carlosb Alexandria Leyva RN RN bb Attema, Lee, FNP-C FNP-Jess1 Charu Pinedo RN RN cg Slawson, Ashby, RN RN as6 Andrea Sanders MD MD rt Corrections: (The following items were deleted from the chart) 07/31 23:39 23:32 Immunization history: Client reports having NOT received the Covid vaccine. justin andreson 08/01 00:31 07/31 23:43 Respiratory: Positive for cough, kb reena 08/01 00:31 07/31 23:46 Constitutional: This is a well developed, well nourished patient who is kb awake, alert, and in no acute distress. Head/Face: Normocephalic, atraumatic. ENT: Moist Mucous membranes Cardiovascular: Regular rate and rhythm with a normal S1 and S2. No gallops, murmurs, or rubs. No pulse deficits. Skin: Warm, dry with normal turgor. Normal color. MS/ Extremity: Pulses equal, no cyanosis. Neurovascular intact. Full, normal range of motion. Neuro: Awake and alert, GCS 15, oriented to person, place, time, and situation. Moves all extremities. Normal gait. reena 08/01 00:33 07/31 23:46 ED course: Patient is a 62-year-old female who presents with cough, kb congestion and chills that started this morning. States patient's temperature was checked but did not reveal a fever at home. States the chills are causing body aches. On exam patient does have a fever of 101 with mild wheezing. No respiratory distress. Will test for COVID and flu and do a chest x-ray to rule out pneumonia.. reena 08/01 04:27 03:47 rt cg
[2022-08-01 04:10] LABS: Urine Bacteria <20 /HPF (<20); Urine Mucus Slight /HPF (None Seen); Urine WBC Clump Few /HPF (None Seen)
--- NOTE | 2022-08-01 04:31 | P.HP ---
Certification for Inpatient Patient admitted to: Inpatient With expected LOS: >2 Midnights Patient will require the following post-hospital care: None Practitioner: I am a practitioner with admitting privileges, knowledge of patient current condition, hospital course, and medical plan of care. Services: Services provided to patient in accordance with Admission requirements found in Title 42 Section 412.3 of the Code of Federal Regulations <ElsaPedro Connolly - Last Filed: 08/01/22 04:26> Patient History Date of Service: 08/01/22 Reason for admission: UTI, severe sepsis, DEANNA History of Present Illness: 62-year-old female with history of FSGS, chronic diastolic congestive heart failure, moderate aortic stenosis, CKD 3, hypertension, hypothyroidism, anemia of chronic disease, nondependent diabetes, RA presents to the emergency department for fever, chills. She reports her symptoms began this morning, her son is experiencing similar symptoms. She was evaluated here in the emergency department initially her flu and COVID swabs are negative, further blood work revealed bandemia with 10% bands, worsening creatinine now 3.04 up from 2.45 at discharge 5 days ago, GFR 17 BUN 69 lactic acid 2.2 calcium 6.6 AST 152 ALT 91 alk phos 144 BNP 3414 urinalysis with 2+ leuk esterase, urine microscopic with 5-10 red blood cells greater than 50 white blood cell abdominal ultrasound performed which tech reports was grossly negative. Suspect severe sepsis secondary to UTI at this point. Patient with mild right upper quadrant tenderness, CT chest on pelvis ordered for further characterization. - Past Medical/Surgical History Diabetic: Yes -: IDDM -: HTN -: Hypothyroid -: Morbid obesity -: Rheumatoid arthritis -: FSGS -: thyroidectomy -: Back surgery on the sciatic nerve Psychosocial/ Personal History: Patient is . - Family History Mother -: Diabetes, Cancer, Kidney disease - Social History Smoking Status: Never smoker Alcohol use: No CD- Drugs: No Caffeine use: No Place of Residence: Home <Pedro Hunter - Last Filed: 08/01/22 04:26> Date of Service: 08/01/22 <Rafael Miguel - Last Filed: 08/01/22 21:20> Allergies codeine Allergy (Verified 07/21/22 22:24) Shortness of breath, tongue swelling Sulfa (Sulfonamide Antibiotics) Allergy (Verified 07/21/22 22:24) Itching/Hives/Rash Home Medications: Fenofibrate,Micronized [Fenofibrate] 54 mg PO DAILY 01/03/22 Folic Acid 1 mg PO DAILY 01/03/22 Metoprolol Tartrate 25 mg PO BID 01/03/22 Mv-Mn/Iron/Folic Acid/Herb 190 [Vitamin D3 Complete Caplet] 50,000 unit PO SEECOM 01/03/22 [place]-3/Dha/Epa/Fish Oil [Nuretin Softgel] 1 cap PO DAILY 01/03/22 Pantoprazole [Protonix Tab*] 1 tab PO DAILY 01/03/22 Insulin Aspart [Novolog Flexpen] 22 units SQ SEECOM 01/04/22 Insulin Detemir [Levemir] 40 units SQ DAILY WITH BREAKFAST 01/04/22 Amlodipine [Norvasc*] 2.5 mg PO DAILY 30 Days #30 tab 06/02/22 Hydralazine HCl [Apresoline] 50 mg PO TID 30 Days #90 tab 06/02/22 Calcitrol [Rocaltrol*] 0.5 mcg PO M,W,F 07/21/22 Doxazosin [Cardura*] 1 mg PO BID 07/21/22 Dulaglutide [Trulicity] 1.5 mg SQ MO 07/21/22 Hydroxychloroquine [Plaquenil*] 200 mg PO DAILY 07/21/22 Furosemide [Lasix*] 40 mg PO DAILY tab 07/27/22 Levothyroxine [Synthroid*] 0.2 mg PO DAILYAC 30 Days #60 tab 07/27/22 predniSONE [Prednisone*] 30 mg PO DAILY 30 Days #45 tab 07/27/22 Doxepin HCl [Sinequan] 10 mg PO BEDTIME 08/01/22 Magnesium Oxide [Mag 0X*] 400 mg PO DAILY 08/01/22 Review of Systems 10-point ROS is otherwise unremarkable General: Fever, Chills Respiratory: Cough Cardiovascular: Edema <Pedro Hunter Mohsen - Last Filed: 08/01/22 04:26> Physical Examination - Physical Exam General: Alert, In no apparent distress, Oriented x3, Obese HEENT: Atraumatic, PERRLA, Mucous membr. moist/pink, EOMI, Sclerae nonicteric Neck: Supple, 2+ carotid pulse no bruit, No LAD, Without JVD or thyroid abnormality Respiratory: Diminished Cardiovascular: Regular rate/rhythm, Normal S1 S2, Edema (2 + Plus edema bilateral lower extremities) Capillary refill: <2 Seconds Gastrointestinal: Normal bowel sounds, Tenderness (Mild right upper quadrant tenderness) Musculoskeletal: No tenderness Integumentary: No rashes Neurological: Normal speech, Normal strength at 5/5 x4 extr, Normal tone, Normal affect - Studies Laboratory Data (last 24 hrs) 08/01/22 01:02: PT 13.1 H, INR 1.19, APTT 25.9 08/01/22 01:02: Sodium 139, Potassium 3.6, BUN 69 H, Creatinine 3.04 H, Glucose 217 H, Total Bilirubin 0.4, AST 152 H, ALT 91 H, Alkaline Phosphatase 144 H 08/01/22 01:02: WBC 8.70, Hgb 8.8 L, Hct 26.2 L, Plt Count 103 L <Pedro Hunter - Last Filed: 08/01/22 04:26> - Studies Laboratory Data (last 24 hrs) 08/01/22 01:02: PT 13.1 H, INR 1.19, APTT 25.9 08/01/22 01:02: Sodium 139, Potassium 3.6, BUN 69 H, Creatinine 3.04 H, Glucose 217 H, Total Bilirubin 0.4, AST 152 H, ALT 91 H, Alkaline Phosphatase 144 H 08/01/22 01:02: WBC 8.70, Hgb 8.8 L, Hct 26.2 L, Plt Count 103 L <Rafael Miguel - Last Filed: 08/01/22 21:20> Assessment and Plan - Plan Assessment: Severe sepsis secondary to UTI DEANNA on CKD 3 secondary to sepsis, FSGS, CRS Chronic diastolic congestive heart failure with moderate aortic stenosis Hypertension Hypothyroidism Anemia of chronic disease Diabetes mellitus type 2insulin-dependent RA Plan: Severe sepsis secondary to UTI Blood and urine cultures obtained, continue IV cefepime at this time. CT chest abdomen pelvis without contrast pending for evaluation of other possible causes of sepsis/bandemia/fever. DEANNA on CKD 3 secondary to sepsis, FSGS, CRS Neurology consulted, patient reports improvement in edema since her hospitalization still with 2+ pitting edema of bilateral lower extremities. She is taking Lasix 40 mg daily at home but renal function is worse. We will consult nephrology and allow them to manage her from a renal standpoint given complexity. Continue prednisone 30 mg p.o. daily the patient takes at home. Chronic diastolic congestive heart failure with moderate aortic stenosis Continue plan of care as above. Consult cardiology as necessary. Diabetes mellitus type 2insulin-dependent ACHS Accu-Chek, sliding scale insulin, A1c in the morning. Hypertension Hypothyroidism Anemia of chronic disease RA Continue home meds. DVT PPX: Heparin Code status:full Discharge Plan: Home Plan to discharge in: 72 Hours - Advance Directives Does patient have a Living Will: No Does patient have a Durable POA for Healthcare: Yes - Code Status/Comfort Care Code Status Assessed: Yes (Full code) Critical Care: No Time Spent Managing Pts Care (In Minutes): 70 <Pedro Hunter - Last Filed: 08/01/22 04:26> - Plan Patient seen and examined on rounds this morning slight improvement reports cough/breathing has improved discharge denies dysuria reports chills/fever at home severe sepsis secondary to UTI, DEANNA on CKD3 continue empiric antibiotics, nephrology consulted, continue steroids <Rafael Miguel - Last Filed: 08/01/22 21:20>
[2022-08-01] MEDS ORDERED: ACETAMINOPHEN 500 MG TAB PO PRN (05:31)
[2022-08-01] MEDS ORDERED: ONDANSETRON 4 MG/2 ML VIAL IV PRN (05:31)
[2022-08-01 06:29] VITALS: BMI 43.9
[2022-08-01] MEDS: predniSONE 20 MG TAB PO SCH (08:38)
[2022-08-01] MEDS: HEPARIN 5000 UNIT/ML 1 ML VIAL SQ SCH ×2 (08:38→21:08)
[2022-08-01] MEDS: CEFEPIME 1 GM in NA CHLORIDE 0.9% 100 ML IV SCH (08:39)
[2022-08-01] MEDS: INSULIN -REGULAR HUMAN 50 UNIT/0.5 ML ML SQ SCH ×4 (08:40→21:07)
[2022-08-01] MEDS ORDERED: INFLUENZA VACCINE (for 6+ mo) 0.5 ML DOSE IMVAC ONE (12:00)
--- NOTE | 2022-08-01 12:35 | EKG ---
Test Date: 2022-08-01 Test Time: 00:56:35 [employer]: [employer] MEASUREMENT RESULTS: Intervals: Rate: 86 AL: 142 QRSD: 82 QT: 408 QTc: 488 [place]: P: 35 AL: 142 QRS: 36 T: 85 INTERPRETIVE STATEMENTS: Normal sinus rhythm Nonspecific ST and T wave abnormality Prolonged QT Abnormal ECG Compared to ECG 07/21/2022 16:09:41 ST (T wave) deviation now present Electronically Signed On 08-01-22 12:34:44 MANAGER FITNESS by Archie Bhardwaj
[2022-08-01] MEDS: NA CHLORIDE 0.9% 1,000 ML IV SCH (13:34)
[2022-08-01] MEDS ORDERED: HOME MED 1 EA UNK (Dulaglutide [Trulicity] 1.5 MG/0.5 ML Pen.Injctr) SQ SCH (15:45)
[2022-08-01] MEDS ORDERED: GLUCAGON 1 MG/VIAL IM PRN (15:51)
[2022-08-01] MEDS ORDERED: INSULIN -REGULAR HUMAN 50 UNIT/0.5 ML ML SQ ONE (15:57)
[2022-08-01] MEDS ORDERED: D10W 250 ML BAG IV PRN (15:58)
--- NOTE | 2022-08-01 20:25 | RAD REPORT ---
EXAM DESCRIPTION: US - Abdomen Exam Limited - 08/01/2022 4:15 am CLINICAL HISTORY: The patient is 62 years old and is Female; ABD PAIN REPORTEDLY NEGATIVE SONOG RAPHIC CHILDERS SIGN TECHNIQUE: Real-time ultrasound of the right upper quadrant with image documentation. COMPARISON: No relevant prior studies available. FINDINGS: GALLBLADDER: No gallbladder wall thickening or pericholecystic free fluid or edema. Possi ble small volume intraluminal sludge but no visualized gallstones. COMMON BILE DUCT: Unremarkable as visualized. No stones. No dilation. IMPRESSION: Questionable small volume gallbladder sludge with no cholelithiasis or other acute abnor mality. Electronically signed by: Aldo Rosenbaum MD 08/01/2022 4:41 AM TRAVERSE ROD ASSEMBLER Due to temporary technical issues with the PACS/Fluency reporting system, reports are being signed by the in house radiologists without review as a courtesy to insure prompt reporting. The interpreting radiologist is fully responsible for the content of the report.
--- NOTE | 2022-08-01 20:28 | RAD REPORT ---
EXAM DESCRIPTION: CT - Chest Abd Pelvis Wo Con - 08/01/2022 6:59 am CLINICAL HISTORY: The patient is 62 years old and is Female; FEVER [facility] MAIN TECHNIQUE: Axial computed tomography images of the chest, abdomen and pelvis without intravenous con trast. Sagittal and coronal reformatted images were created and reviewed. This CT exam was perfor med using one or more of the following dose reduction techniques: automated exposure control, adjus tment of the mA and/or kV according to patient size, and/or use of iterative reconstruction technique . COMPARISON: 05/31/2022 CT abdomen pelvis without contrast. FINDINGS: CHEST: LUNGS: Unremarkable. No mass. No consolidation. PLEURAL SPACE: Unremarkable. No significant effusion. No pneumothorax. HEART: Unremarkable. No cardiomegaly. No significant pericardial effusion. No significant co ronary artery calcifications. ABDOMEN: LIVER: Unremarkable. GALLBLADDER AND BILE DUCTS: Unremarkable. No calcified stones. No ductal dilation. PANCREAS: Unremarkable. No ductal dilation. SPLEEN: Unremarkable. No splenomegaly. ADRENALS: Unremarkable. No mass. KIDNEYS AND URETERS: Atrophic appearance of the right kidney with simple right renal cyst. 4.9 x 4.5 cm cyst in the superior pole of the left kidney with a focus of internal increased attenuation noted in the dependent portion (axial image 59/130). No obstructive intrarenal or intraureteral stones. STOMACH AND BOWEL: Descending and sigmoid colonic diverticulosis without evidence of acute diverti culitis. No obstruction. PELVIS: APPENDIX: No findings to suggest acute appendicitis. BLADDER: Decompressed appearance of the urinary bladder. No stones. REPRODUCTIVE: Unremarkable as visualized. CHEST, ABDOMEN and PELVIS: INTRAPERITONEAL SPACE: Unremarkable. No significant fluid collection. No free air. BONES/JOINTS: Bilateral posterior hardware fixation of the L5 and S1 vertebra with partial left L5 laminectomy, no evidence of hardware fracture, failure, or loosening. No acute osseous abnormality. Diffusely heterogenous appearance of the bone marrow with multilevel DISH changes involving the thoracic and superior lumbar spine, unchanged from prior exam. No dislocation. SOFT TISSUES: Unremarkable. VASCULATURE: Moderate calcified atherosclerosis of the thoracic and abdominal aorta without aneury smal dilatation. Moderate aortic valve calcification. LYMPH NODES: Unremarkable. No enlarged lymph nodes. IMPRESSION: 1. No acute abnormality of the chest, abdomen, or pelvis, allowing for lack of intrave nous contrast. No obvious source of fever identified. 2. 4.9 x 4.5 cm cyst in the superior pole of the left kidney with a focus of internal increased att enuation noted in the dependent portion (axial image 59/130). Clinical correlation with results from 05/09/2022 CT guided biopsy of the left kidney recommended. Electronically signed by: Aldo Rosenbaum MD 08/01/2022 5:00 AM BOAT OUTBOARD ENGINE MECHANIC Due to temporary technical issues with the PACS/Fluency reporting system, reports are being signed by the in house radiologists without review as a courtesy to insure prompt reporting. The interpreting radiologist is fully responsible for the content of the report.
--- NOTE | 2022-08-01 20:32 | RAD REPORT ---
EXAM DESCRIPTION: RAD - Chest Single View - 08/01/2022 12:01 am CLINICAL HISTORY: 62 years Female, Cough TECHNIQUE: 1 view (Single frontal view of the chest) COMPARISON: Prior images of 07/26/2022 were not made available at time of this interpretation, infere nce from the prior report may be made. FINDINGS: Patient's body habitus results in projectional magnification artifact.LINES AND TUBES: No ne.CARDIOVASCULAR STRUCTURES: Normal heart size. Mild pulmonary venous congestion versus projectiona l artifact. LUNGS: No confluent areas of acute consolidation. PLEURA: No layering pleural eff usions. No pneumothorax.BONES: No acute osseous abnormality of the thorax. IMPRESSION: 1. Mild pulmonary venous congestion versus projectional artifact. 2. Otherwise, no o ther acute cardiopulmonary disease. Electronically signed by: Marcus Valenzuela MD 08/01/2022 12:44 AM SOFTWARE SECURITY ARCHITECT Due to temporary technical issues with the PACS/Fluency reporting system, reports are being signed by the in house radiologists without review as a courtesy to insure prompt reporting. The interpreting radiologist is fully responsible for the content of the report.
--- NOTE | 2022-08-02 02:55 | CON ---
Date of Consultation: 08/01/2022 Chief Complaint: Acute kidney injury on chronic kidney disease stage 3b. History Of Present Illness: The patient has multiple medical problems. She was recently hospitalize d for congestive heart failure and fluid overload. She was taking prednisone and dose was gradually tapered off due to fluid retention and cushingoid facial swelling. The patient is a 62-year-old woma n with history of FSGS, chronic diastolic congestive heart failure, moderate aortic stenosis, chronic kidney disease stage 3, hypertension, hypothyroidism, anemia due to chronic disease, diabetes mellit us with renal manifestation, and rheumatoid arthritis. She presented to the emergency room because o f fever, chills, and cough. She had exposure to sick person in her family, her son was experiencing similar symptoms. The patient previously had COVID pneumonia. Currently, COVID swab test was negati ve. The patient is admitted to the hospital for further workup and management. Serum creatinine was up to 3.04. Previously creatinine level was ranging from 1.8 to 2.2. The patient was found to have elevated BNP. Urinalysis showed positive leukocyte esterase and WBCs were up to 50. There was micr oscopic hematuria with red blood cells from 5 to 10. Review of Systems: General: Denies fever or chills. Eyes: Denies vision changes. Ears, Nose, Mouth, And Throat: Denies sore throat or earache. Respiratory: Denies PND or orthopnea. Cardiovascular: Denies chest pain or palpitations. : Denies dysuria or hematuria. All other systems reviewed and all are negative. Past Medical History: Insulin-dependent diabetes mellitus, hypertension, hypothyroidism, morbid obes ity, rheumatoid arthritis, FSGS, thyroidectomy, and back surgery for sciatica management. Family History: Mother had diabetes, cancer, and chronic kidney a disease. Social History: The patient denies tobacco, alcohol, or illicit drugs. Physical Examination: General: The patient is awake, alert, follows commands. Eyes: Anicteric sclerae. EOMI. Ears, Nose, Mouth, And Throat: Oral mucosa moist. No pallor. Neck: Supple. No bruits. Lungs: Few rhonchi. Heart: S1, S2. Abdomen: Soft, benign. Extremities: No edema. Impression And Plan: 1.The patient has multiple medical problems. She will continue blood pressure medication. Plan is to start IV fluids and reduce her medication as needed. 2.Acute kidney injury. Plan is to check renal ultrasound and urinalysis. The patient was found to have microscopic hematuria. The patient will have test to check for evidence of rapidly progressive glomerulonephritis. 3.Anemia of chronic kidney disease. Monitor hemoglobin level. EB/MODL Voice ID: [id number] Report ID: [id number]
[2022-08-02 03:45] LABS: Absolute Lymphocytes (CBC) 0.6 K/uL (0.7-4.9); Hematocrit 23.7 % (36.0-45.0); Lymphocytes % 5.3 % (15.3-44.8); MCV 97.9 fL (80-100); MPV 10.3 fL (7.6-11.3); RBC Red Blood Cell Count 2.42 M/uL (3.86-4.86)
[2022-08-02 04:00] LABS: Albumin 2.3 g/dL (3.4-5.0); Bilirubin Total 0.5 mg/dL (0.2-1.0); Potassium 3.7 mmol/L (3.5-5.1); Protein, Total 5.8 g/dL (6.4-8.2)
[2022-08-02] MEDS ORDERED: HOME MED 1 EA UNK (Insulin Detemir [Levemir] 100 UNIT/ML Vial) SQ SCH (08:00)
[2022-08-02 08:24] LABS: Specific Gravity 1.015 (1.005-1.030); Urine Bacteria None Seen /HPF (<20); Urine Bilirubin NEGATIVE (Negative); Urine Blood 1+ (Negative); Urine Clarity Clear (Clear); Urine Color Light-Yellow (Yellow); Urine Glucose 1+ (Negative); Urine Mucus Slight /HPF (None Seen); Urine Protein 1+ (Negative); Urine Urobilinogen Normal (Normal); Urine WBC Clump Occasional /HPF (None Seen); Urine pH 5.5 (5.0-7.0)
[2022-08-02] MEDS: INSULIN GLARGINE 100 UNIT/ML SQ SCH (08:24)
[2022-08-02] MEDS: predniSONE 20 MG TAB PO SCH (08:24)
[2022-08-02] MEDS: CEFEPIME 1 GM in NA CHLORIDE 0.9% 100 ML IV SCH (08:26)
[2022-08-02] MEDS: HEPARIN 5000 UNIT/ML 1 ML VIAL SQ SCH ×2 (08:27→21:08)
[2022-08-02] MEDS: INSULIN -REGULAR HUMAN 50 UNIT/0.5 ML ML SQ SCH ×4 (08:32→21:00)
[2022-08-02] MEDS: NA CHLORIDE 0.9% 1,000 ML IV SCH (08:36)
--- NOTE | 2022-08-02 14:46 | P.PN ---
Subjective Date of Service: 08/02/22 Chief Complaint: UTI, severe sepsis, DEANNA Subjective Pt with CKD basline cr 2.5, FSGS , and CHF , presented with fever Today feels better BS control Cr stable 3.0 Physical exam General: Awake, NAD , obese HEENT: Atraumatic, Normocephalic Neck: Supple, no elevated JVD Respiratory: CTAB Cardiovascular: No rubs, No murmurs Gastrointestinal: Soft and benign, Non-distended Musculoskeletal: No clubbing, no edema Integumentary: No warmth A/P # DEANNA on CKD4 2/2 DN Cr today up to 3.0 Cont to hold lasix gentle hydration Monitor renal panel #FSGS on steroids tapering, now on presndiaone 30mg daily #Sepsis likely ureosepsis cont ABx F/U culturs # Secondary hyperPTH Cont calcitriol will start Vit D #DM SSI # Htn Continue current BP medication regimen # Hypothyroidism Per primary team Physical Examination - Vital Signs Temperature: 96.6 F Blood Pressure: 159/59 Pulse: 75 Respirations: 20 Pulse Ox (%): 95 - Studies Microbiology Data (last 24 hrs): 08/01/22 01:02 Blood - Blood Gram Stain - Final
[2022-08-02] MEDS: CALCITROL 0.25 MCG CAP PO SCH (14:54)
[2022-08-02] MEDS ORDERED: INSULIN GLARGINE 100 UNIT/ML SQ ONE (17:03)
--- NOTE | 2022-08-02 17:09 | P.PN ---
Subjective Date of Service: 08/02/22 Chief Complaint: UTI, severe sepsis, DEANNA Patient denies any complaint today. She has been afebrile. Physical Examination - Vital Signs Temperature: 97.7 F Blood Pressure: 153/50 Pulse: 75 Respirations: 20 Pulse Ox (%): 96 - Studies Microbiology Data (last 24 hrs): 08/01/22 01:02 Blood - Blood Gram Stain - Final Assessment And Plan - Plan Physical Exam General: Alert, In no apparent distress, Oriented x3, Obese HEENT: Atraumatic, PERRLA, Mucous membr. moist/pink, EOMI, Sclerae nonicteric Neck: Supple, 2+ carotid pulse no bruit, No LAD, Without JVD or thyroid abnormality Respiratory: Diminished Cardiovascular: Regular rate/rhythm, Normal S1 S2, Edema (2 + Plus edema bilateral lower extremities) Capillary refill: <2 Seconds Gastrointestinal: Normal bowel sounds, Tenderness (Mild right upper quadrant tenderness) Musculoskeletal: No tenderness Integumentary: No rashes Neurological: Normal speech, Normal strength at 5/5 x4 extr, Normal tone, Normal affect Assessment: Severe sepsis secondary to UTI Gram-negative bacteremia DEANNA on CKD 3 secondary to sepsis, FSGS, CRS Chronic diastolic congestive heart failure with moderate aortic stenosis Hypertension Hypothyroidism Anemia of chronic disease Diabetes mellitus type 2insulin-dependent RA Plan: Severe sepsis secondary to UTI Blood and urine culture: GNR. Continue IV cefepime. Follow-up cultures for management identification and sensitivity. Infectious disease consult. DEANNA on CKD 3 secondary to sepsis, FSGS, CRS Nephrology consulted. Continue to hold Lasix per nephrology and monitor renal function. Continue prednisone 30 mg p.o. daily the patient takes at home. Chronic diastolic congestive heart failure with moderate aortic stenosis Stable Diabetes mellitus type 2insulin-dependent ACHS Accu-Chek, sliding scale insulin, A1c in the morning. Hypertension Hypothyroidism Anemia of chronic disease RA Stable Continue home meds. DVT PPX: Heparin Code status:full Discharge Plan: Home
[2022-08-02] MEDS ORDERED: INSULIN -REGULAR HUMAN 50 UNIT/0.5 ML ML IV ONE (20:33)
[2022-08-02] MEDS: CALCIUM CARBONATE 500 MG TAB PO SCH (21:08)
[2022-08-03 04:17] LABS: Absolute Lymphocytes (CBC) 0.7 K/uL (0.7-4.9); Lymphocytes % 7.7 % (15.3-44.8); MCV 97.4 fL (80-100); MPV 10.1 fL (7.6-11.3); RBC Red Blood Cell Count 2.36 M/uL (3.86-4.86)
[2022-08-03 04:49] LABS: Albumin 2.3 g/dL (3.4-5.0); Bilirubin Total 0.3 mg/dL (0.2-1.0); Potassium 3.8 mmol/L (3.5-5.1); Protein, Total 6.1 g/dL (6.4-8.2)
[2022-08-03] MEDS: NA CHLORIDE 0.9% 1,000 ML IV SCH (06:00)
[2022-08-03] MEDS: INSULIN -REGULAR HUMAN 50 UNIT/0.5 ML ML SQ SCH ×4 (07:30→20:31)
[2022-08-03] MEDS: CALCIUM CARBONATE 500 MG TAB PO SCH ×2 (08:32→20:30)
[2022-08-03] MEDS: INSULIN GLARGINE 100 UNIT/ML SQ SCH ×2 (08:33→17:01)
[2022-08-03] MEDS: predniSONE 20 MG TAB PO SCH (08:33)
[2022-08-03] MEDS: CEFEPIME 1 GM in NA CHLORIDE 0.9% 100 ML IV SCH (08:34)
[2022-08-03] MEDS: HEPARIN 5000 UNIT/ML 1 ML VIAL SQ SCH ×2 (08:34→20:32)
--- NOTE | 2022-08-03 14:02 | P.CNS ---
Date of Consult: 08/03/22 Chief Complaint: UTI, severe sepsis, DEANNA History of Present Illness: 62-year-old female with history of FSGS, chronic diastolic congestive heart failure, moderate aortic stenosis, CKD 3, hypertension, hypothyroidism, anemia of chronic disease, nondependent diabetes, RA presents to the emergency department for fever, chills. She reports her symptoms began this morning, her son is experiencing similar symptoms. She was evaluated here in the emergency department initially her flu and COVID swabs are negative, further blood work revealed bandemia with 10% bands, worsening creatinine now 3.04 up from 2.45 at discharge 5 days ago, GFR 17 BUN 69 lactic acid 2.2 calcium 6.6 AST 152 ALT 91 alk phos 144 BNP 3414 urinalysis with 2+ leuk esterase, urine microscopic with 5-10 red blood cells greater than 50 white blood cell abdominal ultrasound performed which tech reports was grossly negative. Suspect severe sepsis secondary to UTI at this point. Patient with mild right upper quadrant tenderness, CT chest on pelvis ordered for further characterization. Patient has positive E. Coli in urine and bacteremia. ID has been consulted for IV antibiotics recommendation and management Allergies codeine Allergy (Verified 07/21/22 22:24) Shortness of breath, tongue swelling Sulfa (Sulfonamide Antibiotics) Allergy (Verified 07/21/22 22:24) Itching/Hives/Rash Home Medications: Fenofibrate,Micronized [Fenofibrate] 54 mg PO DAILY 01/03/22 Folic Acid 1 mg PO DAILY 01/03/22 Metoprolol Tartrate 25 mg PO BID 01/03/22 Mv-Mn/Iron/Folic Acid/Herb 190 [Vitamin D3 Complete Caplet] 50,000 unit PO SEECOM 01/03/22 [place]-3/Dha/Epa/Fish Oil [Nuretin Softgel] 1 cap PO DAILY 01/03/22 Pantoprazole [Protonix Tab*] 1 tab PO DAILY 01/03/22 Insulin Aspart [Novolog Flexpen] 22 units SQ SEECOM 01/04/22 Insulin Detemir [Levemir] 40 units SQ DAILY WITH BREAKFAST 01/04/22 Amlodipine [Norvasc*] 2.5 mg PO DAILY 30 Days #30 tab 06/02/22 Hydralazine HCl [Apresoline] 50 mg PO TID 30 Days #90 tab 06/02/22 Calcitrol [Rocaltrol*] 0.5 mcg PO M,W,F 07/21/22 Doxazosin [Cardura*] 1 mg PO BID 07/21/22 Dulaglutide [Trulicity] 1.5 mg SQ MO 07/21/22 Hydroxychloroquine [Plaquenil*] 200 mg PO DAILY 07/21/22 Furosemide [Lasix*] 40 mg PO DAILY tab 07/27/22 Levothyroxine [Synthroid*] 0.2 mg PO DAILYAC 30 Days #60 tab 07/27/22 predniSONE [Prednisone*] 30 mg PO DAILY 30 Days #45 tab 07/27/22 Doxepin HCl [Sinequan] 10 mg PO BEDTIME 08/01/22 Magnesium Oxide [Mag 0X*] 400 mg PO DAILY 08/01/22 - Past Medical/Surgical History Diabetic: Yes -: IDDM -: HTN -: Hypothyroid -: Morbid obesity -: Rheumatoid arthritis -: FSGS -: thyroidectomy -: Back surgery on the sciatic nerve Psychosocial/ Personal History: Patient is . - Family History Mother Medical History: Diabetes, Cancer, Kidney disease - Social History Alcohol use: No CD- Drugs: No Caffeine use: No Place of Residence: Home Review of Systems 10-point ROS is otherwise unremarkable General: Chills ENT: Other (neck pain) Musculoskeletal: Other (left thigh pain) Physical Examination Temp Pulse Resp BP Pulse Ox 97.8 F 75 18 195/72 H 96 08/03/22 12:00 08/03/22 12:00 08/03/22 12:00 08/03/22 12:00 08/03/22 12:00 General: Alert, In no apparent distress, Oriented x3 Respiratory: Clear to auscultation bilaterally Cardiovascular: Normal S1 S2, Edema (2+ legs) Gastrointestinal: Normal bowel sounds Musculoskeletal: Swelling (2+ legs) Integumentary: No rashes, No breakdown Neurological: Normal speech, Normal tone, Sensation intact, Normal affect active medications Acetaminophen (Acetaminophen 500 Mg Tab) 500 mg PO Q4HP PRN PRN Reason: TEMP > 100' F Calcitriol (Calcitrol 0.25 Mcg Cap) 0.25 mcg PO Q48H [facility] Last Admin: 08/02/22 14:54 Dose: 0.25 mcg Calcium Carbonate/Glycine (Calcium Carbonate 500 Mg Tab) 1,000 mg PO BID [facility] Last Admin: 08/03/22 08:32 Dose: 1,000 mg Dextrose (D10w 250 Ml Bag) 125 ml IV PRN PRN; Protocol PRN Reason: HYPOGLYCEMIA Glucagon (Glucagon 1 Mg/Vial) 1 mg IM 1X PRN; Protocol PRN Reason: HYPOGLYCEMIA Heparin Sodium (Porcine) (Heparin 5000 Unit/Ml 1 Ml Vial) 5,000 unit SQ Q12HR [facility] Last Admin: 08/03/22 08:34 Dose: Not Given Home Med (Dulaglutide [Trulicity]) 1.5 mg SQ MO [facility] Cefepime HCl 1 gm/ Sodium (Chloride) 100 mls @ 200 mls/hr IV Q24H [facility]; Protocol Last Admin: 08/03/22 08:34 Dose: 100 mls Insulin Glargine (Insulin Glargine 100 Unit/Ml) 40 unit SQ DAILY WITH BREAKFAST [facility] Last Admin: 08/03/22 08:33 Dose: 40 unit Insulin Human Regular (Insulin -Regular Human 50 Unit/0.5 Ml Ml) 0 unit SQ ACHS [facility]; Protocol Last Admin: 08/03/22 11:45 Dose: 6 unit Ondansetron HCl (Ondansetron 4 Mg/2 Ml Vial) 4 mg IV Q6HP PRN PRN Reason: NAUSEA / VOMITING Prednisone (Prednisone 20 Mg Tab) 30 mg PO DAILY [facility] Last Admin: 08/03/22 08:33 Dose: 30 mg Sodium Chloride (Flush Normal Saline 10 Ml) 10 ml IV BID [facility] Last Admin: 08/03/22 08:35 Dose: 10 ml Imagings Data: RAD - Chest Single View - 08/01/2022 FINDINGS: Patient's body habitus results in projectional magnification artifact.LINES AND TUBES: None.CARDIOVASCULAR STRUCTURES: Normal heart size. Mild pulmonary venous congestion versus projectional artifact. LUNGS: No confluent areas of acute consolidation. PLEURA: No layering pleural effusions. No pneumothorax.BONES: No acute osseous abnormality of the thorax. IMPRESSION: 1. Mild pulmonary venous congestion versus projectional artifact. 2. Otherwise, no other acute cardiopulmonary disease CT - Chest Abd Pelvis Wo Con - 08/01/2022 IMPRESSION: 1. No acute abnormality of the chest, abdomen, or pelvis, allowing for lack of intravenous contrast. No obvious source of fever identified. 2. 4.9 x 4.5 cm cyst in the superior pole of the left kidney with a focus of internal increased attenuation noted in the dependent portion (axial image 59/130). Clinical correlation with results from 05/09/2022 CT guided biopsy of the left kidney recommended US - Abdomen Exam Limited - 08/01/2022 FINDINGS: GALLBLADDER: No gallbladder wall thickening or pericholecystic free fluid or edema. Possible small volume intraluminal sludge but no visualized gallstones. COMMON BILE DUCT: Unremarkable as visualized. No stones. No dilation. IMPRESSION: Questionable small volume gallbladder sludge with no cholelithiasis or other acute abnormality - Problems (1) Bacteremia Plan: Most likely secondary to UTI Cultures: - 08/01 UC E. Coli Antibiotics: - Current on IV Cefepime (08/01- ) Recommendations: - Continue IV Cefepime for total of 14 days (when repeated BC turns negative) - Can switch to PO as patient can tolerate when discharge (2) UTI (urinary tract infection) Plan: Cultures: - 08/01 UC E. Coli Antibiotics: - Current on IV Cefepime (08/01- ) Recommendations: - Continue IV Cefepime - Can switch to PO as patient can tolerate when discharge Conclusions/Impression: - Bacteremia: Likely due to UTI: Need antibiotics for total of 14 days when repeated BC turns negative - Severe sepsis secondary to UTI - DEANNA on CKD 3 secondary to sepsis, FSGS, CRS - Severe protein calorie malnutrition: Recommend to have protein supplement to support adequate immunity - Chronic diastolic congestive heart failure with moderate aortic stenosis - Hypertension - Hypothyroidism - Anemia of chronic disease - Diabetes mellitus type 2insulin-dependent - RA ID will monitor the patient closely for signs of infection with fever and WBC trends Case has been discussed with Dr. Gilmore N Thank you Dr. Macias for consultation
--- NOTE | 2022-08-03 15:50 | P.PN ---
Subjective Date of Service: 08/03/22 Chief Complaint: UTI, severe sepsis, DEANNA Patient has no new complain. She has good oral intake. Physical Examination - Vital Signs Temperature: 97.8 F Blood Pressure: 195/72 Pulse: 75 Respirations: 18 Pulse Ox (%): 96 - Studies Microbiology Data (last 24 hrs): 08/01/22 03:30 Clean Catch Urine [place] Count - Final >100,000 CFU/ML. 08/01/22 03:30 Clean Catch Urine - Final Escherichia Coli 08/01/22 01:02 Blood - Blood Aerobic Blood Culture - Final Escherichia Coli 08/01/22 01:02 Blood - Blood Gram Stain - Final 08/01/22 02:08 Blood - Blood Aerobic Blood Culture - Final Escherichia Coli 08/01/22 02:08 Blood - Blood Blood Culture Gram Stain - Final Assessment And Plan - Plan Physical Exam General: Alert, In no apparent distress, Oriented x3, Obese HEENT: Atraumatic, PERRLA, Mucous membr. moist/pink, EOMI, Sclerae nonicteric Neck: Supple, 2+ carotid pulse no bruit, No LAD, Without JVD or thyroid abnormality Respiratory: Diminished Cardiovascular: Regular rate/rhythm, Normal S1 S2, Edema (2 + Plus edema bilateral lower extremities) Capillary refill: <2 Seconds Gastrointestinal: Normal bowel sounds, Tenderness (Mild right upper quadrant tenderness) Musculoskeletal: No tenderness Integumentary: No rashes Neurological: Normal speech, Normal strength at 5/5 x4 extr, Normal tone, Normal affect Assessment: Severe sepsis secondary to UTI Gram-negative bacteremia DEANNA on CKD 3 secondary to sepsis, FSGS, CRS Chronic diastolic congestive heart failure with moderate aortic stenosis Hypertension Hypothyroidism Anemia of chronic disease Diabetes mellitus type 2insulin-dependent RA Plan: Severe sepsis secondary to E. coli UTI/E. coli bacteremia Blood and urine culture: Pansensitive E. coli Continue IV cefepime. Infectious disease input appreciated. Repeat blood culture. Oral antibiotics after repeat blood culture comes back negative. DEANNA on CKD 3 secondary to sepsis, FSGS, CRS Nephrology consulted. Serum creatinine continue to improve without diuretics. Continue to hold Lasix per nephrology and monitor renal function. Continue prednisone 30 mg p.o. daily. Chronic diastolic congestive heart failure with moderate aortic stenosis Stable Diabetes mellitus type 2insulin-dependent ACHS Accu-Chek, sliding scale insulin, A1c in the morning. Hypertension Hypothyroidism Anemia of chronic disease RA Stable Continue home meds. DVT PPX: Heparin Code status:full Discharge Plan: Home
[2022-08-03] MEDS ORDERED: MV MN PO SCH (16:00)
[2022-08-03] MEDS ORDERED: FOLIC ACID PO SCH (16:00)
[2022-08-03] MEDS ORDERED: HERB PO SCH (16:00)
[2022-08-03] MEDS ORDERED: IRON PO SCH (16:00)
[2022-08-03] MEDS ORDERED: CALCITROL 0.25 MCG CAP PO SCH (17:00)
--- NOTE | 2022-08-03 17:05 | PN ---
Date of Progress Note: 08/03/2022 Subjective: The patient was admitted with acute kidney injury secondary to prerenal, chronic kidney disease secondary to FSGS. The patient's diuresis was stopped, started on gentle hydration. The pat ient feeling better. Blood culture was positive and urine culture was positive. Physical Examination: Vital Signs: Blood pressure 149/70, pulse of 63, afebrile. Chest: Clear to auscultation. Heart: S1, S2. Regular. Abdomen: Soft, nontender. Extremity: Trace edema. Neurologic: Alert. No focality. Laboratory Data: Urinalysis positive for infection. WBC of 50. Sodium 140, potassium 3.8, bicarb 2 9, BUN 66, creatinine down to 2.3, GFR 22, calcium 6.9, albumin 2.3, corrected calcium is 8.1. Hemog lobin 7.8. Current Medications: The patient on include; 1.Cefepime. 2.Tylenol. 3.Calcium carbonate. 4.Prednisone. 5.Insulin. 6.Normal saline at 50 per hour. 7.Calcitriol. Assessment And Plan: 1.Acute kidney injury secondary to prerenal. Continued to recover, back to close to baseline. Look s to me on the normal volume side. I am going to go ahead and discontinue IV fluid. We will keep ho lding diuresis. We will monitor the patient. 2.Hypertension, controlled, optimal. Keep holding diuresis. We will follow up. 3.Urinary tract infection secondary to E coli complicated with bacteremia. Continue cefepime, dose appropriate. We will follow up. 4.FSGS, status post acute kidney injury, stable currently. Continue prednisone 30. We will follow up with. 5.Secondary hyperparathyroidism. Continue calcitriol. DONNA/ELIJAH Voice ID: [id number] Report ID: [id number]
[2022-08-03] MEDS: HYDRALAZINE HCL 25 MG TABLET PO SCH (20:30)
[2022-08-03] MEDS: METOPROLOL TAR 25 MG TAB PO SCH (20:30)
[2022-08-03] MEDS: DOXAZOSIN 2 MG TAB PO SCH (20:31)
[2022-08-03] MEDS ORDERED: DOXAZOSIN 1 MG TAB PO SCH (21:00)
[2022-08-03] MEDS ORDERED: HOME MED 1 EA UNK (Hydralazine Hcl [Apresoline] 50 MG Tablet) PO SCH (21:00)
[2022-08-03] MEDS ORDERED: DOXEPIN HCL 10 MG CAP PO SCH (21:00)
[2022-08-04 00:18] VITALS: O2SAT 95
[2022-08-04] MEDS: HYDRALAZINE HCL 20 MG/ML VIAL IV PRN ×2 (00:57→17:07)
[2022-08-04 01:29] VITALS: TEMP 97.6
[2022-08-04 04:03] LABS: Absolute Lymphocytes (CBC) 0.7 K/uL (0.7-4.9); Lymphocytes % 12.7 % (15.3-44.8); MCV 98.2 fL (80-100); MPV 10.1 fL (7.6-11.3); RBC Red Blood Cell Count 2.44 M/uL (3.86-4.86)
[2022-08-04 04:18] LABS: Albumin 2.3 g/dL (3.4-5.0); Bilirubin Total 0.4 mg/dL (0.2-1.0); Potassium 3.8 mmol/L (3.5-5.1); Protein, Total 6.2 g/dL (6.4-8.2)
[2022-08-04 04:52] VITALS: BP 175/77
[2022-08-04] MEDS: METOPROLOL TAR 25 MG TAB PO SCH (05:20)
[2022-08-04] MEDS: DOXAZOSIN 2 MG TAB PO SCH (05:21)
[2022-08-04] MEDS: HYDRALAZINE HCL 25 MG TABLET PO SCH ×3 (05:21→18:33)
[2022-08-04] MEDS ORDERED: LEVOTHYROXINE SOD 0.1 MG TAB PO SCH (06:30)
--- NOTE | 2022-08-04 08:35 | P.PN ---
Subjective Date of Service: 08/04/22 Chief Complaint: UTI, severe sepsis, DEANNA Patient lying in bed stated no more left thigh pain. No major events upon examination Physical Examination - Vital Signs Temperature: 97.6 F Blood Pressure: 175/77 Pulse: 67 Respirations: 15 Pulse Ox (%): 95 - Physical Exam General: Alert, In no apparent distress, Oriented x3 Respiratory: Clear to auscultation bilaterally Cardiovascular: Normal S1 S2, Edema Gastrointestinal: Normal bowel sounds Musculoskeletal: No contractures, Swelling (2+ legs) Integumentary: No rashes, No breakdown Neurological: Normal speech, Normal tone, Sensation intact, Normal affect - Studies active medications Acetaminophen (Acetaminophen 500 Mg Tab) 500 mg PO Q4HP PRN PRN Reason: TEMP > 100' F Amlodipine Besylate (Amlodipine 2.5 Mg Tab) 2.5 mg PO DAILY [facility] Last Admin: 08/04/22 05:21 Dose: 2.5 mg Calcitriol (Calcitrol 0.25 Mcg Cap) 0.25 mcg PO Q48H [facility] Last Admin: 08/02/22 14:54 Dose: 0.25 mcg Calcitriol (Calcitrol 0.25 Mcg Cap) 0.5 mcg PO M,W,F [facility] Last Admin: 08/03/22 16:35 Dose: 0.5 mcg Calcium Carbonate/Glycine (Calcium Carbonate 500 Mg Tab) 1,000 mg PO BID [facility] Last Admin: 08/03/22 20:30 Dose: 1,000 mg Dextrose (D10w 250 Ml Bag) 125 ml IV PRN PRN; Protocol PRN Reason: HYPOGLYCEMIA Doxazosin Mesylate (Doxazosin 2 Mg Tab) 1 mg PO BID [facility] Last Admin: 08/04/22 05:21 Dose: 1 mg Doxepin HCl (Doxepin Hcl 10 Mg Cap) 10 mg PO BEDTIME [facility] Last Admin: 08/03/22 20:29 Dose: 10 mg Folic Acid (Folic Acid 1 Mg Tablet) 1 mg PO DAILY [facility] Glucagon (Glucagon 1 Mg/Vial) 1 mg IM 1X PRN; Protocol PRN Reason: HYPOGLYCEMIA Heparin Sodium (Porcine) (Heparin 5000 Unit/Ml 1 Ml Vial) 5,000 unit SQ Q12HR [facility] Last Admin: 08/03/22 20:32 Dose: Not Given Home Med (Dulaglutide [Trulicity]) 1.5 mg SQ MO [facility] Home Med (Fenofibrate,Micronized [Fenofibrate]) 54 mg PO DAILY [facility] Home Med (Mv-Mn/Iron/Folic Acid/Herb 190 [Vitamin D3 Complete Caplet]) 50,000 unit PO SEECOM [facility] Home Med (Busy-3/Dha/Epa/Fish Oil [Nuretin Softgel]) 1 cap PO DAILY [facility] Hydralazine HCl (Hydralazine Hcl 20 Mg/Ml Vial) 10 mg IV Q6HP PRN PRN Reason: FOR SBP>160 OR DBP>100 [facility] Last Admin: 08/04/22 00:57 Dose: 10 mg Hydralazine HCl (Hydralazine Hcl 25 Mg Tablet) 50 mg PO TID [facility] Last Admin: 08/04/22 05:21 Dose: 50 mg Hydroxychloroquine Sulfate (Hydroxychloroquine 200mg Tab) 200 mg PO DAILY [facility] Cefepime HCl 1 gm/ Sodium (Chloride) 100 mls @ 200 mls/hr IV Q24H [facility]; Protocol Last Admin: 08/03/22 08:34 Dose: 100 mls Insulin Glargine (Insulin Glargine 100 Unit/Ml) 40 unit SQ DAILY WITH BREAKFAST [facility] Last Admin: 08/03/22 08:33 Dose: 40 unit Insulin Glargine (Insulin Glargine 100 Unit/Ml) 25 unit SQ DAILY AT SUPPER [facility] Last Admin: 08/03/22 17:01 Dose: 25 unit Insulin Human Regular (Insulin -Regular Human 50 Unit/0.5 Ml Ml) 0 unit SQ ACHS [facility]; Protocol Last Admin: 08/03/22 20:31 Dose: 12 unit Levothyroxine Sodium (Levothyroxine Sod 0.1 Mg Tab[facility] Admin: 08/04/22 05:22 Dose: 0.2 mg Magnesium Oxide (Magnesium Oxide 400 Mg Tab) 400 mg PO DAILY [facility] Metoprolol Tartrate (Metoprolol Tar 25 Mg Tab) 25 mg PO BID [facility] Last Admin: 08/04/22 05:20 Dose: 25 mg Ondansetron HCl (Ondansetron 4 Mg/2 Ml Vial) 4 mg IV Q6HP PRN PRN Reason: NAUSEA / VOMITING Pantoprazole Sodium (Pantoprazole 40mg Tablet) 40 mg PO DAILY [facility]; Protocol Prednisone (Prednisone 20 Mg Tab) 30 mg PO DAILY [facility] Last Admin: 08/03/22 08:33 Dose: 30 mg Sodium Chloride (Flush Normal Saline 10 Ml) 10 ml IV BID [facility] Last Admin: 08/03/22 20:32 Dose: 10 ml Microbiology Data (last 24 hrs): 08/01/22 03:30 Clean Catch Urine [place] Count - Final >100,000 CFU/ML. 08/01/22 03:30 Clean Catch Urine - Final Escherichia Coli 08/01/22 01:02 Blood - Blood Aerobic Blood Culture - Final Escherichia Coli 08/01/22 01:02 Blood - Blood Gram Stain - Final 08/01/22 02:08 Blood - Blood Aerobic Blood Culture - Final Escherichia Coli 08/01/22 02:08 Blood - Blood Blood Culture Gram Stain - Final Assessment And Plan - Current Problems (Diagnosis) (1) Bacteremia Plan: Most likely secondary to UTI Cultures: - 08/03 BC: Pending for result - 08/01 BC: E. Coli - 08/01 UC: E. Coli Antibiotics: - Current on IV Cefepime (08/01- ) Recommendations: - Continue IV Cefepime for total of 14 days (when repeated BC turns negative) - Can switch to PO as patient can tolerate when discharge (2) UTI (urinary tract infection) Plan: Cultures: - 08/03 BC: Pending for result - 08/01 BC: E. Coli - 08/01 UC: E. Coli Antibiotics: - Current on IV Cefepime (08/01- ) Recommendations: - Continue IV Cefepime - Can switch to PO as patient can tolerate when discharge - Plan - Bacteremia: Likely due to UTI: Need antibiotics for total of 14 days when repeated BC turns negative - Severe sepsis secondary to UTI - DEANNA on CKD 3 secondary to sepsis, FSGS, CRS - Severe protein calorie malnutrition: Recommend to have protein supplement to support adequate immunity - Chronic diastolic congestive heart failure with moderate aortic stenosis - Hypertension - Hypothyroidism - Anemia of chronic disease - Diabetes mellitus type 2insulin-dependent - RA ID will monitor the patient closely for signs of infection with fever and WBC trends Case has been discussed with Dr. Gilmore, N
[2022-08-04] MEDS: CALCIUM CARBONATE 500 MG TAB PO SCH (08:55)
[2022-08-04] MEDS: predniSONE 20 MG TAB PO SCH (08:56)
[2022-08-04] MEDS: INSULIN GLARGINE 100 UNIT/ML SQ SCH ×2 (08:57→17:06)
[2022-08-04] MEDS: HEPARIN 5000 UNIT/ML 1 ML VIAL SQ SCH (08:58)
[2022-08-04] MEDS: INSULIN -REGULAR HUMAN 50 UNIT/0.5 ML ML SQ SCH ×3 (08:58→17:07)
[2022-08-04] MEDS ORDERED: FENOFIBRATE MICRONIZED PO SCH (09:00)
[2022-08-04] MEDS ORDERED: FOLIC ACID 1 MG TABLET PO SCH (09:00)
[2022-08-04] MEDS ORDERED: EPA PO SCH (09:00)
[2022-08-04] MEDS ORDERED: FISH OIL PO SCH (09:00)
[2022-08-04] MEDS ORDERED: OMEGA PO SCH (09:00)
[2022-08-04] MEDS ORDERED: DHA PO SCH (09:00)
[2022-08-04] MEDS ORDERED: MAGNESIUM OXIDE 400 MG TAB PO SCH (09:00)
[2022-08-04] MEDS ORDERED: HYDROXYCHLOROQUINE 200MG TAB PO SCH (09:00)
[2022-08-04] MEDS: CEFEPIME 1 GM in NA CHLORIDE 0.9% 100 ML IV SCH (09:00)
[2022-08-04] MEDS ORDERED: PANTOPRAZOLE 40MG TABLET PO SCH (09:00)
[2022-08-04] MEDS ORDERED: AMLODIPINE 2.5 MG TAB PO SCH (09:00)
--- NOTE | 2022-08-04 12:39 | P.DS ---
Admission Date: 08/01/22 Discharge Date: 08/04/22 Disposition: ROUTINE DISCHARGE Discharge Condition: FAIR Reason for Admission: UTI, severe sepsis, DEANNA Brief History of Present Illness: 62-year-old female with history of FSGS, chronic diastolic congestive heart failure, moderate aortic stenosis, CKD 3, hypertension, hypothyroidism, anemia of chronic disease, nondependent diabetes, RA presented to the emergency department for fever, chills. She was evaluated here in the emergency department initially her flu and COVID swabs are negative, further blood work revealed bandemia with 10% bands, worsening creatinine-3.04 up from 2.45 at discharge 5 days ago, GFR 17 BUN 69, lactic acid 2.2, calcium 6.6, AST 152 ALT 91, alk phos 144, BNP 3414 urinalysis with 2+ leuk esterase, urine microscopic with 5-10 red blood cells greater than 50 white blood cell. Severe sepsis secondary to UTI suspected. Patient was hospitalized for further management. Hospital Course: Diagnosis Severe sepsis secondary to UTI E. 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 coli UTI/E. coli bacteremia Blood and urine culture: Pansensitive E. coli. Repeat blood culture: Patient treated with IV cefepime. Infectious disease saw and evaluated patient and recommended oral antibiotics. Noted prolonged QT interval so fluoroquinolones avoided. Patient prescribed Vantin to complete 2 weeks of treatment from negative blood cultures Repeat blood culture came back negative. 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 Serum creatinine improved without diuretics. Lasix was held during the hospital stay Continued prednisone 30 mg p.o. daily. Chronic diastolic congestive heart failure with moderate aortic stenosis Stable Diabetes mellitus type 2insulin-dependent Patient blood sugar was elevated in the evenings. She was getting Lantus insulin morning and evening. Patient stated his blood sugar is better controlled at home. Her home insulin regimen resumed without any changes Hypertension Hypothyroidism Anemia of chronic disease RA Stable Continued home meds. Vital Signs/Physical Exam: Temp Pulse Resp BP Pulse Ox 97.6 F 67 15 175/77 H 95 08/04/22 12:32 08/04/22 12:32 08/04/22 12:32 08/04/22 12:32 08/04/22 12:32 General: Alert, In no apparent distress, Obese HEENT: Mucous membr. moist/pink Neck: JVD not distended Respiratory: Clear to auscultation bilaterally, Diminished Cardiovascular: No edema, Regular rate/rhythm, Normal S1 S2 Gastrointestinal: Soft and benign, Non-distended Musculoskeletal: No swelling Integumentary: No rashes, No cyanosis Neurological: Normal strength at 5/5 x4 extr Laboratory Data at Discharge: WBC 5.20 K/uL (4.3-10.9) 08/04/22 03:12 Hgb 8.1 g/dL (12.0-15.0) L 08/04/22 03:12 Hct 24.0 % (36.0-45.0) L 08/04/22 03:12 Plt Count 87 K/uL (152-406) L 08/04/22 03:12 PT 13.1 SECONDS (9.5-12.5) H 08/01/22 01:02 INR 1.19 08/01/22 01:02 APTT 25.9 SECONDS (24.3-36.9) 08/01/22 01:02 Sodium 140 mmol/L (136-145) 08/04/22 03:12 Potassium 3.8 mmol/L (3.5-5.1) 08/04/22 03:12 BUN 59 mg/dL (7-18) H 08/04/22 03:12 Creatinine 2.33 mg/dL (0.55-1.02) H 08/04/22 03:12 Glucose 279 mg/dL (74-106) H 08/04/22 03:12 Total Bilirubin 0.4 mg/dL (0.2-1.0) 08/04/22 03:12 AST 20 U/L (15-37) 08/04/22 03:12 ALT 45 U/L (13-56) 08/04/22 03:12 Alkaline Phosphatase 97 U/L (45-117) 08/04/22 03:12 Home Medications: Fenofibrate,Micronized [Fenofibrate] 54 mg PO DAILY 01/03/22 Folic Acid 1 mg PO DAILY 01/03/22 Metoprolol Tartrate 25 mg PO BID 01/03/22 Mv-Mn/Iron/Folic Acid/Herb 190 [Vitamin D3 Complete Caplet] 50,000 unit PO SEECOM 01/03/22 [place]-3/Dha/Epa/Fish Oil [Nuretin Softgel] 1 cap PO DAILY 01/03/22 Pantoprazole [Protonix Tab*] 1 tab PO DAILY 01/03/22 Insulin Aspart [Novolog Flexpen] 22 units SQ SEECOM 01/04/22 Insulin Detemir [Levemir] 40 units SQ DAILY WITH BREAKFAST 01/04/22 Amlodipine [Norvasc*] 2.5 mg PO DAILY 30 Days #30 tab 06/02/22 Hydralazine HCl [Apresoline] 50 mg PO TID 30 Days #90 tab 06/02/22 Calcitrol [Rocaltrol*] 0.5 mcg PO M,W,F 07/21/22 Doxazosin [Cardura*] 1 mg PO BID 07/21/22 Dulaglutide [Trulicity] 1.5 mg SQ MO 07/21/22 Hydroxychloroquine [Plaquenil*] 200 mg PO DAILY 07/21/22 Levothyroxine [Synthroid*] 0.2 mg PO DAILYAC 30 Days #60 tab 07/27/22 predniSONE [Prednisone*] 30 mg PO DAILY 30 Days #45 tab 07/27/22 Doxepin HCl [Sinequan*] 10 mg PO BEDTIME 08/01/22 Magnesium Oxide [Mag 0X*] 400 mg PO DAILY 08/01/22 Calcium Carbonate [Oscal*] 1,000 mg PO BID #60 tab 08/04/22 Cefpodoxime Proxetil 200 mg PO BID #56 tab 08/04/22 New Medications: Cefpodoxime Proxetil 200 mg PO BID #56 tab Calcium Carbonate [Oscal*] 1,000 mg PO BID #60 tab Diet: ADA Activity: Ad sara Followup: Marcus Stack MD [Primary Care Provider] - 1 Week Time spent managing pt's care (in minutes): 34
[2022-08-04] MEDS: CALCITROL 0.25 MCG CAP PO SCH (14:46)
--- NOTE | 2022-08-05 01:23 | PN ---
Date of Progress Note: 08/04/2022 Chief Complaint: Acute kidney injury, fluid overload. Subjective: The patient was started on steroids for FSGS although she had fluid retention as well as developed Cushingoid feature and prednisone is currently tapered off. Review of Systems: Denies fever or chills. Physical Examination: Lungs: Diminished breath sounds at bases. Heart: S1, S2. Abdomen: Soft. Extremities: No edema. Impression And Plan: 1.Acute kidney injury, gradually improving. Monitor electrolytes. Avoid nonsteroidal antiinflammat ory medication. 2.Urinary tract infection secondary to Escherichia coli, complicated with bacteremia. Continue cefe pime. 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 Contin ue prednisone 30 mg. The patient will follow up with me in the office for further recommendations. 4.Acute kidney injury due to prerenal azotemia. Renal function is improving to baseline. Avoid nep hrotoxic medication. EB/MODL Voice ID: [id number] Report ID: [id number]
== END 2022-08-04 19:16 | disposition home or self-care (01) | DRG 871 ==
LOC: ER 23:22 → ERHOLD 08-01 04:18 → 2ND 08-01 04:56
PROVIDERS: ADMIT Hospitalist; ATTEND Internal Medicine
DX: A41.51 Sepsis due to Escherichia coli [E. coli] (principal); E43 Unspecified severe protein-calorie malnutrition; I50.32 Chronic diastolic (congestive) heart failure; I13.0 Hypertensive heart and chronic kidney disease with heart failure and stage 1 through stage 4 chronic kidney disease, or unspecified chronic kidney disease; N39.0 Urinary tract infection, site not specified; Z68.41 Body mass index [BMI] 40.0-44.9, adult; N17.9 Acute kidney failure, unspecified; N18.4 Chronic kidney disease, stage 4 (severe); N25.81 Secondary hyperparathyroidism of renal origin; E66.01 Morbid (severe) obesity due to excess calories; R65.20 Severe sepsis without septic shock; E11.22 Type 2 diabetes mellitus with diabetic chronic kidney disease; D63.1 Anemia in chronic kidney disease; I35.0 Nonrheumatic aortic (valve) stenosis; E03.9 Hypothyroidism, unspecified; N26.9 Renal sclerosis, unspecified; M06.9 Rheumatoid arthritis, unspecified; R31.29 Other microscopic hematuria; Z88.1 Allergy status to other antibiotic agents; Z88.5 Allergy status to narcotic agent; Z79.4 Long term (current) use of insulin; Z86.16 Personal history of COVID-19; Z79.52 Long term (current) use of systemic steroids; Z79.899 Other long term (current) drug therapy; Z79.890 Hormone replacement therapy; Z20.822 Contact with and (suspected) exposure to COVID-19
CPT/HCPCS: 0240U; 36415; 71045; 71250; 74176; 76705; 80053; 81001; 81003; 81015; 82947; 83036; 83605; 83880; 84484; 85025; 85610; 85730; 87040; 87077; 87086; 87088; 87186; 87205; 93005; 96374; 96375; 99285; J0360; J0610; J0692; J1644; J1815; J7030; J7512

== ENCOUNTER → 2023-08-04 | Emergency (ER) | payer OTHER ==
[~2023-08-04] MED LIST: ACETAMINOPHEN 500 MG TAB ONE; NA CHLORIDE 0.9% 1,000 ML ONE; POTASSIUM 25 MEQ EFFERV TAB ONE
[2023-08-04 16:47] LABS: Absolute Lymphocytes (CBC) 0.3 K/uL (0.7-4.9); Hematocrit 31.1 % (36.0-45.0); Lymphocytes % 3.5 % (15.3-44.8); MCV 88.1 fL (80-100); MPV 9.7 fL (7.6-11.3); Platelets 142 thou/uL (152-406); RBC Red Blood Cell Count 3.53 M/uL (3.86-4.86)
[2023-08-04 16:50] LABS: Protime INR 1.28
--- NOTE | 2023-08-04 16:53 | RAD REPORT ---
EXAM DESCRIPTION: RADChest Single View08/04/2023 4:24 pm CLINICAL HISTORY: COUGH COMPARISON: Chest Single View dated 07/31/2022; Chest Pa And Lat (2 Views) dated 07/26/2022; Chest Sin gle View dated 07/21/2022; Chest Single View dated 06/25/2022 TECHNIQUE: Portable AP view of the chest. FINDINGS: The lungs are clear. No pneumothorax or effusion. The cardiomediastinal contours are unre markable. IMPRESSION: No acute cardiopulmonary process.
[2023-08-04 16:56] LABS: SARS-CoV-2 Antigen Rapid Res Positive (Negative)
[2023-08-04 17:12] LABS: Albumin 2.9 g/dL (3.4-5.0); Bilirubin Total 0.5 mg/dL (0.2-1.0); Potassium 3.4 mEq/L (3.5-5.1); Protein, Total 7.8 g/dL (6.4-8.2)
[2023-08-04 17:47] LABS: White Blood Cell Scan OK (OK)
[2023-08-04 17:48] LABS: Blood Morphology Comment NOT SEEN (NOT SEEN); Platelet Estimate ADEQ
[2023-08-04 20:17] LABS: Specific Gravity 1.012 (1.005-1.030); Urine Bacteria None Seen /HPF (<20); Urine Bilirubin NEGATIVE (Negative); Urine Blood Negative (Negative); Urine Clarity Clear (Clear); Urine Color Light-Yellow (Yellow); Urine Glucose TRACE (Negative); Urine Mucus Slight /HPF (None Seen); Urine Protein 2+ (Negative); Urine RBC <5 /HPF (None Seen); Urine Urobilinogen Normal (Normal); Urine pH 5.5 (5.0-7.0)
--- NOTE | 2023-08-04 20:51 | EDPHYS ---
Physician Documentation [facility] Name: Gena Feng Age: 63 yrs Sex: Female : 1960 Arrival Date: 08/04/2023 Time: 15:33 Bed 20 Private MD: ED Physician Anibal Miguel HPI: 08/04 16:00 This 63 yrs old Female presents to ER via Wheelchair with complaints of Cough cp and Sore throat. 16:00 Patient is a 63-year-old female with past medical history significant for diabetes, cp hypertension, rheumatoid arthritis who presents to the emergency department with complaints of not feeling well. Patient reports symptoms started yesterday which she started having a slight cough, fever and overall weakness. Patient denies any chest pain, denies any abdominal pain and/or vomiting and/or diarrhea. Historical: - Allergies: 15:40 Codeine; ll1 15:40 Sulfa (Sulfonamide Antibiotics); ll1 - PMHx: 15:40 diabetes mellitus; Hypertensive disorder; Hypothyroidism; Rheumatoid Arthritis; ll1 15:46 Hypercholesterolemia; ll1 - PSHx: 15:46 None; ll1 - Immunization history:: Adult Immunizations up to date. - Social history:: Smoking status: Patient denies any tobacco usage or history of. ROS: 16:05 Eyes: Negative for injury, pain, redness, and discharge, cp 16:05 Constitutional: Positive for body aches, fatigue, fever, malaise, poor PO intake, 16:05 ENT: Positive for sore throat, Negative for drainage from ear(s), ear pain, difficulty swallowing, difficulty handling secretions, 16:05 Cardiovascular: Negative for chest pain, edema, palpitations, 16:05 Respiratory: Positive for cough, Negative for shortness of breath, wheezing, 16:05 Abdomen/GI: Negative for abdominal pain, vomiting, diarrhea, constipation, 16:05 Skin: Negative for rash, 16:05 Neuro: Positive for weakness, Negative for altered mental status, 16:05 All other systems are negative, Exam: 16:10 Constitutional: The patient appears in no acute distress, alert, awake, cp non-diaphoretic, non-toxic, well developed, well nourished, obviously ill, 16:10 Head/Face: Normocephalic, atraumatic. cp 16:10 Eyes: Periorbital structures: appear normal, Pupils: equal, round, and reactive to light and accomodation, Extraocular movements: intact throughout, Conjunctiva: normal, no exudate, no injection, Sclera: no appreciated abnormality, Lids and lashes: appear normal, bilaterally, 16:10 ENT: External ear(s): are unremarkable, Ear canal(s): are normal, clear, TM's: dullness, bilaterally, Nose: is normal, Mouth: Lips: moist, Oral mucosa: moist, Posterior pharynx: Airway: no evidence of obstruction, patent, 16:10 Neck: ROM/movement: Meningeal signs: are not present, nuchal rigidity, is not appreciated, 16:10 Chest/axilla: Inspection: normal, 16:10 Cardiovascular: Rate: normal, Rhythm: regular, Edema: is not appreciated, JVD: is not appreciated, 16:10 Respiratory: the patient does not display signs of respiratory distress, Respirations: labored breathing, that is mild, shallow respirations, that is mild, Breath sounds: are clear throughout, no decreased breath sounds, no stridor, no wheezing, 16:10 Abdomen/GI: Inspection: abdomen appears normal, Palpation: abdomen is soft and non-tender, in all quadrants, 16:10 Back: CVA tenderness, is absent, 16:10 Skin: cellulitis, is not appreciated, no rash present. 16:10 Neuro: Orientation: to person, place \T\ time. Mentation: able to follow commands, slow to respond, Motor: moves all fours, no focal deficits, Sensation: no obvious gross deficits, 16:44 ECG was reviewed by the Attending Physician. cp Vital Signs: 15:46 BP 178 / 54; Pulse 82; Resp 17; Temp 100.6; Pulse Ox 95% on R/A; Weight 104.33 kg; ll1 Height 5 ft. 2 in. ; Pain 0/10; 16:42 BP 157 / 52; Pulse 74; Resp 16; Pulse Ox 100% on R/A; mb9 17:50 BP 143 / 69; Pulse 72; Resp 18; Temp 98.4; Pulse Ox 100% on R/A; mb9 19:00 BP 124 / 47; Pulse 69; Resp 22 S; Pulse Ox 96% on R/A; jw7 20:00 BP 123 / 42; Pulse 68; Resp 23 S; Pulse Ox 96% on R/A; jw7 21:00 BP 109 / 80; Pulse 68; Resp 17 S; Pulse Ox 98% on R/A; jw7 15:46 Body Mass Index 42.07 (104.33 kg, 157.48 cm) ll1 15:46 Pain Scale: Adult ll1 MDM: 15:42 Patient medically screened. cp 20:50 Data reviewed: vital signs, nurses notes, lab test result(s), EKG, radiologic studies, cp plain films. 20:50 Differential diagnosis: viral Infection, bacterial infection, pneumonia UTI, cp meningitis, sepsis. Consideration of Admission/Observation Escalation of care including admission/observation considered. I considered the following discharge prescriptions or medication management in the emergency department Medications were administered in the Emergency Department. See MAR. Independent interpretation of the following test(s) in the Emergency Department EKG: See my EKG interpretation above. Care significantly affected by the following chronic conditions: Diabetes, Hypertension, Obesity. Counseling: I had a detailed discussion with the patient and/or guardian regarding the historical points, exam findings, and any diagnostic results supporting the discharge/admit diagnosis, lab results, radiology results, to return to the emergency department if symptoms worsen or persist or if there are any questions or concerns that arise at home. Response to treatment: the patient's symptoms have markedly improved after treatment, and as a result, I will discharge patient. 08/04 18:03 Order name: Strep 08/04 15:58 Order name: Blood Culture Adult (2) cp 08/04 15:58 Order name: CBC with Diff; Complete Time: 18:02 cp 08/04 17:10 Interpretation: Normal except: RBC 3.53; HGB 10.4; HCT 31.1; PLT 142; RDW 15.5; FABIANA% cp 92.3; LYM% 3.5; LYMA 0.3. 08/04 15:58 Order name: CMP; Complete Time: 17:24 cp 08/04 17:24 Interpretation: Normal except: NA 134; K 3.4; CL 97; GLUC 311; BUN 41; CRE 2.37; GFR cp 22; ALK 154; CA 7.1; ALB 2.9; GLOB 4.9; A/G 0.6. 08/04 15:58 Order name: Lactate w/ 2H reflex if indic.; Complete Time: 17:24 08/04 15:58 Order name: Protime (+inr); Complete Time: 17:10 08/04 15:58 Order name: Ptt, Activated; Complete Time: 17:10 08/04 15:58 Order name: Urinalysis w/ reflexes; Complete Time: 20:49 08/04 20:49 Interpretation: UGLUC TRACE; UPROT 2+; BYST Trace; Reviewed. 08/04 15:58 Order name: Influenza Screen (a \T\ B); Complete Time: 17:10 08/04 15:58 Order name: SARS RAPID; Complete Time: 17:10 08/04 17:10 Interpretation: Reviewed. 08/04 17:48 Order name: CBC Smear Scan; Complete Time: 18:02 EDAZ 08/04 18:27 Order name: Glucose, Ancillary Testing; Complete Time: 20:06 EDAZ 08/04 18:46 Order name: Throat Culture EDAZ 08/04 15:58 Order name: Chest Single View XRAY; Complete Time: 17:10 08/04 17:11 Interpretation: Report review. 08/04 15:58 Order name: EKG; Complete Time: 15:58 08/04 15:58 Order name: Accucheck; Complete Time: 16:18 08/04 15:58 Order name: Cardiac monitoring; Complete Time: 16:17 08/04 15:58 Order name: EKG - Nurse/Tech; Complete Time: 16:44 08/04 15:58 Order name: IV Saline Lock - Large Bore; Complete Time: 16:44 08/04 15:58 Order name: Labs collected and sent; Complete Time: 16:44 08/04 15:58 Order name: O2 Per Protocol; Complete Time: 16:17 08/04 15:58 Order name: O2 Sat Monitoring; Complete Time: 16:17 08/04 15:58 Order name: Vital Signs; Complete Time: 16:18 08/04 17:29 Order name: PO challenge; Complete Time: 17:53 cp EC:44 Rate is 77 beats/min. Rhythm is regular. IN interval is normal. QRS interval is normal. cp QT interval is normal. Interpreted by me. Reviewed by me. Administered Medications: 16:30 Drug: Acetaminophen PO 1000 mg PO once Route: PO; mb9 21:54 Follow up: Response: No adverse reaction jw7 17:08 Drug: NS 0.9% IV 1000 ml IV at 1 bolus Per protocol; 1000 mL bolus Route: IV; Rate: 1 mb9 bolus; Site: right antecubital; 21:53 Follow up: Response: No adverse reaction; IV Status: Completed infusion; IV Intake: jw7 1000ml 18:18 Not Given (Physician Discretion): insulin regular human10 units IVP once cp 18:26 Drug: Potassium PO Effervescent Tablet 25 mEq PO once; dissolve in 4 ounces of water or cm10 juice Route: PO; 19:06 Follow up: Response: No adverse reaction mb9 Disposition Summary: 08/04/23 20:51 Discharge Ordered Notes: Location: Home cp Problem: new cp Symptoms: have improved cp Condition: Stable cp Diagnosis - Dehydration cp - SARS-associated coronavirus as the cause of diseases classified elsewhere cp - Nausea cp Followup: cp - With: Private Physician - When: 2 - 3 days - Reason: Worsening of condition Discharge Instructions: - Discharge Summary Sheet cp - Dehydration, Adult cp - Aspirin and Your Heart cp - COVID-19 cp - How to Protect Yourself and Others - [facility] (08/06/2021) cp - 10 Things You Can Do to Manage Your COVID-19 Symptoms at Home - [facility] (12/25/2020) cp - COVID-19: Quarantine and Isolation - [facility] (09/08/2021) cp - COVID-19: What to Do If You Are Sick - [facility] (08/31/2021) cp Forms: - Medication Reconciliation Form cp - Thank You Letter cp - Antibiotic Education cp - Prescription Opioid Use cp - Patient Portal Instructions cp - Leadership Thank You Letter cp Prescriptions: - Paxlovid 300 mg (150 mg x 2)-100 mg Oral Tablet, Dose Pack - take 1 dose pack ORAL route per package directions for 5 days; 30 tablet; cp Refills: 0, Product Selection Permitted - Zofran 4 mg Oral Tablet - take 1 tablet ORAL route every 12 hours As needed; 20 tablet; Refills: 0, cp Product Selection Permitted Signatures: Dis[facility] Ovidio Thomas PA PA cp Reynaldo Silver RN RN ll1 Halle Irwin RN RN mb9 Imelda Blankenship RN RN cm10 Estela Suh RN jw7 Corrections: (The following items were deleted from the chart) 08/05 18:45 08/04 16:00 This 63 yrs old Female presents to ER via Wheelchair with unknown cp complaint. cp
--- NOTE | 2023-08-04 20:51 | ER ---
Nurse's Notes [facility] Name: Gena Feng Age: 63 yrs Sex: Female : 1960 Arrival Date: 08/04/2023 Time: 15:33 Bed 20 Private MD: Diagnosis: Dehydration;SARS-associated coronavirus as the cause of diseases classified elsewhere;Nausea Presentation: 08/04 15:46 Chief complaint: Patient states: Started to feel ill last night with cough and sore ll1 throat. Fatigue, weak, and fever at home. Blood sugar higher than normal today (FS 318 at home). BP elevated higher than usual, 190/96 at home this AM. Coronavirus screen: Vaccine status: Patient reports receiving the 2nd dose of the covid vaccine. Client denies travel out of the [place] in the last 14 days. fatigue, fever, Client presents with at least one sign or symptom that may indicate coronavirus-19. Standard/surgical mask placed on the client. Ebola Screen: Patient denies travel to an Ebola-affected area in the 21 days before illness onset. Initial Sepsis Screen: Does the patient meet any 2 criteria? No. Patient's initial sepsis screen is negative. Does the patient have a suspected source of infection? No. Patient's initial sepsis screen is negative. Risk Assessment: Do you want to hurt yourself or someone else? Patient reports no desire to harm self or others. Onset of symptoms was August 03, 2023. 15:46 Method Of Arrival: Wheelchair ll1 15:46 Acuity: AMAYA 3 ll1 Triage Assessment: 15:46 General: Appears uncomfortable, ill, Behavior is cooperative, appropriate for age, ll1 listless. General: Reports fever for feeling ill for fatigue for. Pain: Denies pain. EENT: Oral mucosa is dry. lips and mucous membranes dry. Neuro: Reports weakness. Respiratory: Reports cough that is. Historical: - Allergies: 15:40 Codeine; ll1 15:40 Sulfa (Sulfonamide Antibiotics); ll1 - PMHx: 15:40 diabetes mellitus; Hypertensive disorder; Hypothyroidism; Rheumatoid Arthritis; ll1 15:46 Hypercholesterolemia; ll1 - PSHx: 15:46 None; ll1 - Immunization history:: Adult Immunizations up to date. - Social history:: Smoking status: Patient denies any tobacco usage or history of. Screenin:17 [facility] ED Fall Risk Assessment (Adult) History of falling in the last 3 months, mb9 including since admission No falls in past 3 months (0 pts) Confusion or Disorientation No (0 pts) Intoxicated or Sedated No (0 pts) Impaired Gait No (0 pts) Mobility Assist Device Used No (0 pt) Altered Elimination No (0 pt) Score/Fall Risk Level 0 - 2 = Low Risk Oriented to surroundings, Maintained a safe environment, Assessed \T\ reinforced patient's understanding of fall precautions. Abuse screen: Denies threats or abuse. Nutritional screening: No deficits noted. Tuberculosis screening: No symptoms or risk factors identified. Assessment: 16:42 General: Appears uncomfortable, ill, Behavior is calm, cooperative. Pain: Denies pain. mb9 Neuro: Shen Agitation-Sedation Scale (RASS): 0 - Alert and Calm Level of Consciousness is awake, alert, obeys commands, Oriented to person, place, time, situation, Appropriate for age Reports weakness. Cardiovascular: Patient's skin is warm and dry. Respiratory: Airway is patent Respiratory effort is even, unlabored, Respiratory pattern is regular, symmetrical. GI: Abdomen is round non-distended, Bowel sounds present X 4 quads. Abd is soft and non tender X 4 quads. Patient currently denies diarrhea, nausea, vomiting. : No signs and/or symptoms were reported regarding the genitourinary system. EENT: No signs and/or symptoms were reported regarding the EENT system. Derm: Skin is pink, warm \T\ dry. Musculoskeletal: Range of motion: intact in all extremities. 18:26 Reassessment: Pts blood sugar decreased to 252. Per provider insulin can be held. cm10 19:05 Reassessment: No changes from previously documented assessment. Patient and/or family mb9 updated on plan of care and expected duration. Pain level reassessed. Patient is alert, oriented x 3, equal unlabored respirations, skin warm/dry/pink. 19:10 General: Appears in no apparent distress. uncomfortable, ill, Behavior is calm, jw7 cooperative. 19:10 Pain: Denies pain. Neuro: Shen Agitation-Sedation Scale (RASS): 0 - Alert and Calm jw7 Level of Consciousness is awake, alert, obeys commands, Oriented to person, place, time, situation. Cardiovascular: Capillary refill < 3 seconds Patient's skin is warm and dry. Respiratory: Airway is patent Trachea midline Respiratory effort is even, unlabored, Respiratory pattern is regular, symmetrical. GI: Abdomen is round non-distended, Bowel sounds present X 4 quads. : No deficits noted. No signs and/or symptoms were reported regarding the genitourinary system. EENT: No deficits noted. No signs and/or symptoms were reported regarding the EENT system. Derm: Skin is intact, is healthy with good turgor, Skin is dry, Skin is normal, Skin temperature is warm. Musculoskeletal: Circulation, motion, and sensation intact. Range of motion: intact in all extremities. 20:00 Reassessment: Patient appears in no apparent distress at this time. No changes from [facility] previously documented assessment. Patient and/or family updated on plan of care and expected duration. Pain level reassessed. Patient is alert, oriented x 3, equal unlabored respirations, skin warm/dry/pink. 21:00 Reassessment: Patient appears in no apparent distress at this time. Patient and/or jw7 family updated on plan of care and expected duration. Pain level reassessed. Patient is alert, oriented x 3, equal unlabored respirations, skin warm/dry/pink. Patient states feeling better. Vital Signs: 15:46 BP 178 / 54; Pulse 82; Resp 17; Temp 100.6; Pulse Ox 95% on R/A; Weight 104.33 kg; ll1 Height 5 ft. 2 in. ; Pain 0/10; 16:42 BP 157 / 52; Pulse 74; Resp 16; Pulse Ox 100% on R/A; mb9 17:50 BP 143 / 69; Pulse 72; Resp 18; Temp 98.4; Pulse Ox 100% on R/A; mb9 19:00 BP 124 / 47; Pulse 69; Resp 22 S; Pulse Ox 96% on R/A; jw7 20:00 BP 123 / 42; Pulse 68; Resp 23 S; Pulse Ox 96% on R/A; jw7 21:00 BP 109 / 80; Pulse 68; Resp 17 S; Pulse Ox 98% on R/A; jw7 15:46 Body Mass Index 42.07 (104.33 kg, 157.48 cm) [facility] 15:46 Pain Scale: Adult ll1 ED Course: 15:40 Patient arrived in ED. ll1 15:40 Arm band placed on. ll1 15:42 [facility] Thomas [facility]. cp 15:42 Anibal Miguel MD is Attending Physician. cp 15:49 Triage completed. ll1 16:11 Halle Irwin, YANI is Primary Nurse. mb9 16:16 Patient placed in an exam room, on a stretcher. rs5 16:17 Placed in gown. Bed in low position. Call light in reach. Side rails up X 1. Client mb9 placed on continuous cardiac and pulse oximetry monitoring. NIBP monitoring applied. chemical production technician on. 16:25 Chest Single View XRAY In Process Unspecified. EDMS 16:35 Inserted saline lock: 20 gauge in right antecubital area, using aseptic technique. mb9 16:35 EKG done, by ED staff, reviewed by Ovidio JAMES. mb9 16:43 No provider procedures requiring assistance completed. mb9 16:44 SARS RAPID Sent. mb9 16:44 Influenza Screen (a \T\ B) Sent. mb9 16:44 CBC with Diff Sent. mb9 16:44 CMP Sent. mb9 16:44 Protime (+inr) Sent. mb9 16:44 Ptt, Activated Sent. mb9 19:09 Report given to YANI Palmer. mb9 21:53 Provided Education on: discharge instructions and medication usage. jw7 21:53 IV discontinued, intact, bleeding controlled, No redness/swelling at site. Pressure jw7 dressing applied. Administered Medications: 16:30 Drug: Acetaminophen PO 1000 mg PO once Route: PO; mb9 21:54 Follow up: Response: No adverse reaction jw7 17:08 Drug: NS 0.9% IV 1000 ml IV at 1 bolus Per protocol; 1000 mL bolus Route: IV; Rate: 1 mb9 bolus; Site: right antecubital; 21:53 Follow up: Response: No adverse reaction; IV Status: Completed infusion; IV Intake: jw7 1000ml 18:18 Not Given (Physician Discretion): insulin regular human10 units IVP once cp 18:26 Drug: Potassium PO Effervescent Tablet 25 mEq PO once; dissolve in 4 ounces of water or cm10 juice Route: PO; 19:06 Follow up: Response: No adverse reaction mb9 Medication: 16:17 VIS not applicable for this client. mb9 Intake: 21:53 IV: 1000ml; Total: 1000ml. jw7 Outcome: 20:51 Discharge ordered by . cp 21:52 Discharged to home via wheelchair, with family, jw7 21:52 Condition: stable 21:52 Discharge instructions given to patient, Instructed on discharge instructions, follow up and referral plans. medication usage, Demonstrated understanding of instructions, follow-up care, medications, Prescriptions given X 2, 21:54 Patient left the ED. jw7 Signatures: Dispatcher [employer] EDMS Ovidio Thomas PA PA cp Lewis, Lynsay, RN RN ll1 Estela Suh RN RN jw7 Dc, Halle Canchola, RN RN mb9 Garo Ramey, RN RN rs5 Imelda Blankenship RN RN cm10 Corrections: (The following items were deleted from the chart) 15:54 15:46 Chief complaint: Patient states: Started to feel ill last night. Fatigue, weak, ll1 and fever at home. Blood sugar higher than normal today (FS 318 at home). BP elevated higher than usual, 190/96 at home this AM. ll1 17:50 17:50 BP 143 / 49; Pulse 72bpm; Resp 18bpm; Pulse Ox 100% RA; mb9 mb9 17:58 17:50 BP 143 / 69; Pulse 72bpm; Resp 18bpm; Pulse Ox 100% RA; mb9 mb9
[2023-08-04 22:30] VITALS: BP 109/80; TEMP 98.4; O2SAT 98
--- NOTE | 2023-08-07 14:37 | EKG ---
Test Date: 2023-08-04 Test Time: 16:38:57 Test And Balance Engineer: MB MEASUREMENT RESULTS: Intervals: Rate: 77 CO: 168 QRSD: 82 QT: 398 QTc: 450 [place]: P: 46 CO: 168 QRS: 47 T: 63 INTERPRETIVE STATEMENTS: Normal sinus rhythm Nonspecific ST and T wave abnormality Abnormal ECG Compared to ECG 08/01/2022 00:56:35 Prolonged QT interval no longer present ST (T wave) deviation still present Electronically Signed On 08-07-23 14:29:27 PARENTING SKILLS INSTRUCTOR by Archie Bhardwaj
== END ==
LOC: ER 15:33
DX: U07.1 COVID-19 (principal); E86.0 Dehydration; R11.0 Nausea; E11.9 Type 2 diabetes mellitus without complications; I10 Essential (primary) hypertension; Z88.2 Allergy status to sulfonamides; Z88.5 Allergy status to narcotic agent
CPT/HCPCS: 87040 ×2; 87070; 85025; 81001; 36415; 85610; 82947; 87081; 83605; 85730; 80053; 87804 ×2; 71045; 87811; J7030; 93005